=== PATIENT | female | born 1965 | race Caucasian/White ===

== ENCOUNTER → 2017-01-07 | Outpatient (CLI) | payer MEDICAID ==
[~2017-01-07] MED LIST: DCS100C PO; ESCI20TA2 PO; HYDR-3583 PO; HYDR25CA5 PO; IBUP-15 PO; NAPR-243 PO; NITR-65 PO; TRAM50TA2 PO; TRAZ150T42 PO; TRM50T; TRM50T PO; ZIPR60CA6 PO; ZPR80C PO
--- OUTSIDE RECORDS SUMMARY | 2017-01-07 20:12 | XMS REPORT | Continuity of Care Document ---
Demographics Preferred Language Unknown Marital Status Unknown Alevism Affiliation Unknown Race Unknown Ethnic Group Unknown Author Author [facility] Address Unknown Phone Unavailable Allergies Active Description Code Type Severity Reaction Onset Reported/Identified Relationship to Patient Clinical Status Yes phenobarbital [id number] Drug Allergy Unknown N/A 03/09/2006 Yes latex [id number] Drug Allergy Moderate RASH, ITCHING 03/02/2011 Yes vancomycin [id number] Drug Allergy Moderate HIVES 03/02/2011 Yes iodine [id number] Drug Allergy Mild "ILL" 03/02/2011 Yes Latex OA 07/2012 Yes PHENobarbital Drug Allergy 11/22/2011 Medications Problems Date Dx Coded Attending Type Code Diagnosis Diagnosed By 06/27/2010 Ot 553.21 06/27/2010 Ot 599.0 06/27/2010 Ot 789.09 01/11/2011 Ot 553.21 01/11/2011 Ot 789.01 01/16/2011 Ot 552.20 01/31/2011 Ot 553.20 01/31/2011 Ot 789.09 03/09/2011 Ot 278.01 03/09/2011 Ot 553.21 03/09/2011 Ot V85.44 11/22/2011 356.9 UNSPECIFIED IDIOPATHIC PERIPHERAL NEUROPATHY 11/22/2011 401.9 UNSPECIFIED ESSENTIAL HYPERTENSION 11/22/2011 496 CHRONIC AIRWAY OBSTRUCTION NOT ELSEWHERE CLASSIFIED 11/22/2011 716.90 UNSPECIFIED ARTHROPATHY SITE UNSPECIFIED 12/23/2013 SCOUT LOVING Ot 300.00 12/23/2013 SCOUT LOVING Ot 796.0 12/23/2013 SCOUT LOVING Ot 924.11 12/23/2013 SCOUT LOVING Ot 959.7 12/23/2013 SCOUT LOVING Ot E000.8 12/23/2013 SCOUT LOVING Ot E849.0 12/23/2013 SCOUT LOVING Ot E885.9 06/25/2015 Ot 553.20 06/25/2015 Ot V72.63 06/25/2015 Ot V74.8 07/10/2015 YOANDY SMITH MD Ot 305.1 07/10/2015 YOANDY SMITH MD Ot 786.05 07/10/2015 YOANDY SMITH MD Ot 786.07 Procedures Results Encounters ACCT No. Visit Date/Time Discharge Status Pt. Type Provider Facility Loc./Unit Complaint [id number] 12/06/2011 10:27:00 12/06/2011 23: 59:59 CLS Outpatient
[2017-01-07 20:51] LABS: BASOPHILS % (AUTO) 0 % (0-10); EOSINOPHILS # (AUTO) 0.1 10^3/uL (0.0-0.3); EOSINOPHILS % (AUTO) 1 % (0-10); LYMPHOCYTES # (AUTO) 1.7 X 10^3 (1.0-4.0); LYMPHOCYTES % (AUTO) 19 % (12-44); MEAN CORPUSCULAR HEMOGLOBIN 32 PG (25-34); MEAN CORPUSCULAR HGB CONC 33 G/DL (32-36); MEAN CORPUSCULAR VOLUME 97 FL (80-99); MEAN PLATELET VOLUME 9.4 FL (7.4-10.4); MONOCYTES # (AUTO) 0.5 X 10^3 (0.0-1.0); MONOCYTES % (AUTO) 6 % (0-12); NEUTROPHILS # (AUTO) 6.7 X 10^3 (1.8-7.8); NEUTROPHILS % (AUTO) 74 % (42-75); PLATELET COUNT 204 10^3/uL (130-400); RED BLOOD COUNT 5.04 10^6/uL (4.35-5.85); RED CELL DISTRIBUTION WIDTH 13.4 % (10.0-14.5); WHITE BLOOD COUNT 9.1 10^3/uL (4.3-11.0)
[2017-01-07 21:10] LABS: ALANINE AMINOTRANSFERASE 15 U/L (0-55); ALBUMIN 3.8 G/DL (3.2-4.5); ANION GAP 11 MMOL/L (5-14); ASPARTATE AMINO TRANSFERASE 14 U/L (5-34); BILIRUBIN,TOTAL 0.3 MG/DL (0.1-1.0); BLOOD UREA NITROGEN 13 MG/DL (7-18); BUN/CREATININE RATIO 19; CALCIUM 8.9 MG/DL (8.5-10.1); CARBON DIOXIDE 23 MMOL/L (21-32); CHLORIDE 107 MMOL/L (98-107); CHOLESTEROL 244 MG/DL (< 200); DIRECT LDL 185 MG/DL (1-129); GFR ESTIMATED > 60; GLUCOSE 96 MG/DL (70-105); POTASSIUM 4.8 MMOL/L (3.6-5.0); SODIUM 141 MMOL/L (135-145); TOTAL PROTEIN 6.7 G/DL (6.4-8.2); TRIGLYCERIDES 189 MG/DL (<150); VLDL CHOLESTEROL 38 MG/DL (5-40)
[2017-01-07 23:09] LABS: THYROID STIMULATING HORMONE 0.84 UIU/ML (0.35-4.94)
== END ==
LOC: LAB 20:02
PROVIDERS: ATTEND Family Medicine
DX: R05 Cough (principal)
CPT/HCPCS: 36415; 80053; 80061; 83036; 84443; 85025

== ENCOUNTER 2017-07-12 19:39 | Observation (INO) | payer MEDICAID ==
[~2017-07-12] VITALS: Ht 162.6 cm; Wt 179.6 kg
[2017-07-12] MEDS ORDERED: NS IV 500 ML 500 ML IV ONE (19:54)
--- NOTE | 2017-07-12 20:04 | ED Abdominal Pain ---
General Chief Complaint: Abdominal/GI Problems Stated Complaint: RUQ PAIN Source of Information: Patient Exam Limitations: No Limitations History of Present Illness Time Seen By Provider: 19:54 Initial Comments Here with complaint of right upper quadrant abdominal pain for the last 2-3 days. States that she has multiple holes in her belly and has problems with hernias. She states that she's had 7 surgeries in the past. Does report vomiting one time but then states that she is having bowel movements daily. After initial evaluation and, patient stated that she really wanted to go somewhere else but then stated that she would stay. Denies fever or chills. She was apparently supposed to have surgery in April related to her abdominal problems but states that she has seizures of the didn't want to do the surgery until after evaluation by her primary care doctor. She reports missing 3 appointments because she didn't have a ride to her primary care doctor Dr. Perry. She was subsequently fired from that practice for missing multiple appointments and was set up with [facility] for an appointment. She was not able to get to that appointment due to transportation concerns and has a new appointment scheduled for later this week or next week. She subsequently found out that [facility] has transportation available and so she is going to follow up with them. Timing/Duration: 2-3 Days Severity/Quality: Moderate Location: RUQ Radiation: No Radiation Activities at Onset: None Modifying Factors: Worsens With Movement, Improves With Resting Associated Symptoms: No Back Pain, No Fever/Chills, Nausea/Vomiting, No Shortness of Air, Swelling/Mass in Abdomen, No Weakness Allergies and Home Medications Allergies Coded Allergies: Latex (Verified Allergy, Intermediate, RASH, ITCHING, 03/02/11) Vancomycin (Verified Allergy, Intermediate, HIVES, 03/02/11) Iodine (Verified Allergy, Mild, "ILL", 03/02/11) phenobarbital (Verified Allergy, Unknown, 03/09/06) Home Medications Escitalopram Oxalate 20 Mg Tablet, 30 MG PO DAILY, (Reported) Hydrocodone Bit/Acetaminophen 1 Tab Tab, 1-2 EA PO Q4HR PRN, (Reported) Hydroxyzine Pamoate 25 Mg Capsule, 25 MG PO NEEDED, (Reported) Ibuprofen 200 Mg Tablet, 800 MG PO Q8H PRN, (Reported) Tramadol Hcl 50 Mg Tablet, 50 MG PO Q4H PRN for PAIN, #6 Ref 0 Prescribed by: SCOUT CALIXTO on 12/23/13 0017 Trazodone Hcl 150 Mg Tablet, 150 MG PO HS, (Reported) Ziprasidone 80 Mg Cap, 1 PO DAILY, (Reported) Review of Systems Constitutional: see HPI, No chills, No fever EENTM: No Symptoms Reported Respiratory: No Symptoms Reported Cardiovascular: No Symptoms Reported Gastrointestinal: See HPI, Abdomen Distended, Abdominal Pain, Denies Constipated, Vomiting Genitourinary: No Symptoms Reported Musculoskeletal: see HPI, No back pain, muscle pain Skin: no symptoms reported Psychiatric/Neurological: No Symptoms Reported All Other Systems Reviewed Negative Unless Noted: Yes Past Rbtizod-Twijjf-Ihpvmd Hx Patient Social History Alcohol Use: Denies Use Recreational Drug Use: No Smoking Status: Current Everyday Smoker Type Used: Cigarettes Recent Hopitalizations: Yes (HERNIA X 5, C-SECTIONS) Physical Abuse: No Sexual Abuse: No Mistreated: No Fear: No Surgeries History of Surgeries: Yes (LAPAROTOMY, C-SECTIONS) Respiratory History of Respiratory Disorde: No Cardiovascular History of Cardiac Disorders: No Neurological History of Neurological Disord: No Reproductive System Hx Reproductive Disorders: No Gastrointestinal History of Gastrointestinal Di: Yes (VENTRAL HERNIA) Musculoskeletal History of Musculoskeletal Dis: No Endocrine History of Endocrine Disorders: No Psychosocial History of Psychiatric Problem: No Suicide Risk Score: 0 Blood Transfusions History of Blood Disorders: No Reviewed Nursing Assessment Reviewed/Agree w Nursing PMH: Yes Family Medical History Significant Family History: No Pertinent Family Hx Physical Exam Vital Signs VS - Last 72 Hours, by Label 07/12/17 19:40 Temp 97.5 Pulse 96 Resp 24 B/P (MAP) Pulse Ox 99 O2 Delivery Nasal Cannula Capillary Refill : General Appearance: WD/WN, mild distress (abdominal pain), obese (morbidly obese) HEENT: PERRL/EOMI, pharynx normal Neck: full range of motion, supple Respiratory: lungs clear, normal breath sounds Cardiovascular: regular rate, rhythm, no murmur Gastrointestinal: soft, tenderness, hernia, other (multiple abdominal hernias noted. All appear to be reducible although challenging exam due to obesity. Pain noted on evaluation overall especially in the right upper quadrant and right lateral aspect of the pannus.) Extremities: non-tender, normal inspection, pedal edema (bilateral lower extremity edema 2 +) Neurologic/Psychiatric: alert, oriented x 3 Skin: normal color, warm/dry Focused Exam Evaluation Lactate Level Laboratory Tests 07/12/17 22:20: Lactic Acid Level 0.85 Lactic Acid Level Laboratory Tests Test 07/12/17 22:20 Lactic Acid Level 0.85 MMOL/L (0.50-2.00) Progress/Results/Core Measures Results/Orders Lab Results Laboratory Tests Test 07/12/17 20:00 07/12/17 22:20 Range/Units White Blood Count 9.8 4.3-11.0 10^3/uL Red Blood Count 4.52 4.35-5.85 10^6/uL Hemoglobin 14.4 11.5-16.0 G/DL Hematocrit 44 35-52 % Mean Corpuscular Volume 97 80-99 FL Mean Corpuscular Hemoglobin 32 25-34 PG Mean Corpuscular Hemoglobin Concent 33 32-36 G/DL Red Cell Distribution Width 13.3 10.0-14.5 % Platelet Count 152 130-400 10^3/uL Mean Platelet Volume 9.5 7.4-10.4 FL Neutrophils (%) (Auto) 77 H 42-75 % Lymphocytes (%) (Auto) 14 12-44 % Monocytes (%) (Auto) 8 0-12 % Eosinophils (%) (Auto) 1 0-10 % Basophils (%) (Auto) 0 0-10 % Neutrophils # (Auto) 7.5 1.8-7.8 X 10^3 Lymphocytes # (Auto) 1.4 1.0-4.0 X 10^3 Monocytes # (Auto) 0.8 0.0-1.0 X 10^3 Eosinophils # (Auto) 0.1 0.0-0.3 10^3/uL Basophils # (Auto) 0.0 0.0-0.1 10^3/uL Sodium Level 140 135-145 MMOL/L Potassium Level 3.8 3.6-5.0 MMOL/L Chloride Level 106 98-107 MMOL/L Carbon Dioxide Level 26 21-32 MMOL/L Anion Gap 8 5-14 MMOL/L Blood Urea Nitrogen 4 L 7-18 MG/DL Creatinine 0.60 0.60-1.30 MG/DL Estimat Glomerular Filtration Rate > 60 BUN/Creatinine Ratio 7 Glucose Level 106 H 70-105 MG/DL Calcium Level 8.6 8.5-10.1 MG/DL Magnesium Level 1.7 L 1.8-2.4 MG/DL Total Bilirubin 0.6 0.1-1.0 MG/DL Aspartate Amino Transf (AST/SGOT) 13 5-34 U/L Alanine Aminotransferase (ALT/SGPT) 15 0-55 U/L Alkaline Phosphatase 90 40-136 U/L Total Protein 5.8 L 6.4-8.2 GM/DL Albumin 3.3 3.2-4.5 GM/DL Lactic Acid Level 0.85 0.50-2.00 MMOL/L My Orders Orders - AMBROSIO POLANCO MD Cbc With Automated Diff (07/12/17 19:54) Comprehensive Metabolic Panel (07/12/17 19:54) Magnesium (07/12/17 19:54) Ua Culture If Indicated (07/12/17 19:54) Saline Lock/Iv-Start (07/12/17 19:54) Ns Iv 500 Ml (Sodium Chloride 0.9%) (07/12/17 19:54) Ct Abdomen/Pelvis Wo (07/12/17 19:54) Lactic Acid Analyzer (07/12/17 22:13) Fentanyl Injection (Sublimaze Injection (07/12/17 22:20) Medications Given in ED Current Medications Medications Dose Ordered Sig/Sy Route Start Time Stop Time Status Last Admin Dose Admin Sodium Chloride 500 ml @ 0 mls/hr Q0M ONCE IV 07/12/17 19:54 07/12/17 19:55 DC 07/12/17 20:56 500 MLS/HR Vital Signs/I&O Vital Sign - Last 12Hours 07/12/17 19:40 Temp 97.5 Pulse 96 Resp 24 B/P (MAP) Pulse Ox 99 O2 Delivery Nasal Cannula Progress Note : Progress Note Seen and evaluated. IV, labs, UA, CT abdomen and pelvis without contrast as patient is allergic to iodine. Normal saline 500 mL bolus. Monitor patient. CT results noted. I did discuss the case with Dr. Crenshaw at 2110. Case was discussed with Dr. Rock at 2204. Ultimately the plan is to provide pain control and fluids overnight with clear liquid diet and recheck labs in the morning. CT is somewhat equivocal. Patient would be a complicated surgical case that exceeds the capability here if indicated. Currently it is not indicated and we will monitor overnight for improvement or worsening. Patient will need transfer if becomes surgical concern. Admit to Dr. Rock, observation status with Dr. Crenshaw on consult. Patient and family agree to plan. Normal saline will be continued. Fentanyl 50 g IV ordered. Diagnostic Imaging Diagonstic Imaging: CT Plain Films/CT/US/NM/MRI: abdomen, pelvis Comments VIA [facility] [place] [place], [place] NAME: [facility] REC#: [id number] PT STATUS: REG ER : 1965 PHYSICIAN: AMBROSIO POLANCO MD ADMIT DATE: 07/12/17/ER Draft Date of Exam:07/12/17 CT ABDOMEN/PELVIS WO PROCEDURE: CT abdomen and pelvis without contrast. TECHNIQUE: Multiple contiguous axial images were obtained through the abdomen and pelvis without the use of intravenous contrast. INDICATION: Right upper quadrant abdominal pain and emesis Comparison is made to study of 01/31/2011. There is a small amount of pleural fluid, greater on the right. Unenhanced images of the liver and spleen reveal no focal abnormality. No gallbladder or pancreatic lesion is seen. There is no evidence of adrenal gland abnormality. Evaluation of the kidneys is limited without intravenous contrast, however, there is no evidence of acute abnormality or significant change compared to previous study. There has been marked worsening of anterior abdominal wall thinning and disruption resulting in large amount of herniated small and large bowel as well as omentum and mesenteric fat. There is mild increased density in the central mesentery likely due to edema or possible inflammation. No significant free fluid is identified. Lobular contour to the uterus suggests probable fibroids. There is no evidence of abscess. IMPRESSION: Increasing anterior abdominal wall defect containing large amount of herniated small and large bowel as well as omentum and mesenteric fat. Increased density in the mesentery may be due to mesenteric edema or inflammation. No abscess or hemorrhage is identified. There is also a small amount of right pleural fluid. Dictated on workstation # [id number] Dict: 07/12/172029 Trans: 07/12/17 2047 [id number] Interpreted by: CALE SMITH MD Electronically signed by: Departure Communication (Admissions) Time/Spoke to Admitting Phy: 22:05 Time/Spoke to Consulting Phy: 21:11 Impression Impression: Primary Impression: Abdominal wall pain Additional Impression: Ventral hernia, recurrent Disposition: ADMITTED INPATIENT Condition: Stable Admissions Decision to Admit Reason: Admit from ER (General) Decision to Admit/Date: Jul 12, 2017 Time/Decision to Admit Time: 22:05 Departure-Patient Inst. Referrals: YOANDY PERRY MD (PCP/Family) Primary Care Physician AMBROSIO POLANCO MD Jul 12, 2017 20:04
[2017-07-12 20:16] LABS: BASOPHILS % (AUTO) 0 % (0-10); EOSINOPHILS # (AUTO) 0.1 10^3/uL (0.0-0.3); EOSINOPHILS % (AUTO) 1 % (0-10); LYMPHOCYTES # (AUTO) 1.4 X 10^3 (1.0-4.0); LYMPHOCYTES % (AUTO) 14 % (12-44); MEAN CORPUSCULAR HEMOGLOBIN 32 PG (25-34); MEAN CORPUSCULAR HGB CONC 33 G/DL (32-36); MEAN CORPUSCULAR VOLUME 97 FL (80-99); MEAN PLATELET VOLUME 9.5 FL (7.4-10.4); MONOCYTES # (AUTO) 0.8 X 10^3 (0.0-1.0); MONOCYTES % (AUTO) 8 % (0-12); NEUTROPHILS # (AUTO) 7.5 X 10^3 (1.8-7.8); NEUTROPHILS % (AUTO) 77 % (42-75); PLATELET COUNT 152 10^3/uL (130-400); RED BLOOD COUNT 4.52 10^6/uL (4.35-5.85); RED CELL DISTRIBUTION WIDTH 13.3 % (10.0-14.5); WHITE BLOOD COUNT 9.8 10^3/uL (4.3-11.0)
[2017-07-12 20:35] LABS: ALANINE AMINOTRANSFERASE 15 U/L (0-55); ALBUMIN 3.3 GM/DL (3.2-4.5); ANION GAP 8 MMOL/L (5-14); ASPARTATE AMINO TRANSFERASE 13 U/L (5-34); BILIRUBIN,TOTAL 0.6 MG/DL (0.1-1.0); BLOOD UREA NITROGEN 4 MG/DL (7-18); BUN/CREATININE RATIO 7; CALCIUM 8.6 MG/DL (8.5-10.1); CARBON DIOXIDE 26 MMOL/L (21-32); CHLORIDE 106 MMOL/L (98-107); GFR ESTIMATED > 60; GLUCOSE 106 MG/DL (70-105); MAGNESIUM 1.7 MG/DL (1.8-2.4); POTASSIUM 3.8 MMOL/L (3.6-5.0); SODIUM 140 MMOL/L (135-145); TOTAL PROTEIN 5.8 GM/DL (6.4-8.2)
--- NOTE | 2017-07-12 20:47 | Diagnostic Imaging Report ---
PROCEDURE: CT abdomen and pelvis without contrast. TECHNIQUE: Multiple contiguous axial images were obtained through the abdomen and pelvis without the use of intravenous contrast. INDICATION: Right upper quadrant abdominal pain and emesis. COMPARISON is made to a study of 01/31/2011. FINDINGS: There is a small amount of pleural fluid, greater on the right. Unenhanced images of the liver and spleen reveal no focal abnormality. No gallbladder or pancreatic lesion is seen. There is no evidence of adrenal gland abnormality. Evaluation of the kidneys is limited without intravenous contrast, however, there is no evidence of acute abnormality or significant change when compared to the previous study. There has been marked worsening of anterior abdominal wall thinning and disruption resulting in a large amount of herniated small and large bowel as well as omentum and mesenteric fat. There is mild increased density in the central mesentery likely due to edema or possible inflammation. No significant free fluid is identified. Lobular contour to the uterus suggests probable fibroids. There is no evidence of abscess. IMPRESSION: Increasing anterior abdominal wall defect containing a large amount of herniated small and large bowel as well as omentum and mesenteric fat. Increased density in the mesentery may be due to mesenteric edema or inflammation. No abscess or hemorrhage is identified. There is also a small amount of right pleural fluid. Dictated by: Dictated on workstation # [id number]
[2017-07-12] MEDS ORDERED: fentaNYL INJECTION 100 MCG/2 ML AMP IVP STA (22:20)
[2017-07-12 23:40] VITALS: BP 132/72
[2017-07-13] MEDS: fentaNYL INJECTION 100 MCG/2 ML AMP IV PRN ×4 (00:46→09:11)
[2017-07-13] MEDS: NS IV 1000 ML 1,000 ML IV SCH ×2 (00:46→09:11)
[2017-07-13 04:30] VITALS: BP 131/78
--- OUTSIDE RECORDS SUMMARY | 2017-07-13 05:06 | XMS REPORT | Continuity of Care Document ---
Author Author [employer] Organization [facility] Address Unknown Phone Unavailable Care Team Providers Care Applications Engineer Name Role Phone [employer] Unavailable Unavailable Problems Medications Allergies, Adverse Reactions, Alerts Immunizations Results Vital Signs Encounters Location Location Details Encounter Type Encounter Number Reason For Visit Attending Provider ADM Date DC Date Status Source [place] [facility] Procedures Plan of Care Social History Assessment and Plan Family History Value Date Source Advance Directives Order Name Results Value Date Source
--- OUTSIDE RECORDS SUMMARY | 2017-07-13 05:07 | XMS REPORT | Clinical Summary ---
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 There is a large anterior abdominal wall hernia containing the majority of the nonobstructive large and small bowel. There is mild prominence of a single loop of redundant sigmoid colon within the right anterior hernia sac, although the diameter remains within normal limits. There is no significant surrounding inflammatory stranding or evidence of obstruction. No ascites. Pelvis: The mildly distended urinary bladder is unremarkable. There is a well- circumscribed, high density mass extending from the inferior right aspect of the uterine fundus, measuring up to 5.8 cm (series 2 image 67). No pelvic lymphadenopathy. Abdominal wall and Osseous Structures: At least 2 probable previous mesh repairs of the anterior abdominal wall with extensive herniation of abdominal fat and the majority of the large and small bowel through the defect. There is marked atrophy of the rectus abdominis muscles and diffuse laxity of the ventral abdominal wall with wide diastasis. Thoracolumbar spondylosis. Bilateral hip osteoarthrosis. No destructive osseous lesions are identified. Procedure Note Interface, Radiant Results - 04/17/2017 10:[address] ABDOMEN AND PELVIS CLINICAL HISTORY: 51-year-old female, abdominal pain, abdominal hernias. TECHNIQUE: Multiple contiguous axial CT images were obtained through the abdomen and pelvis without IV contrast. Post processing coronal and sagittal reconstruction images were made from the axial images. COMPARISON: None IV CONTRAST: None BOWEL CONTRAST: None FINDINGS: Limited evaluation without the use of IV contrast which includes the viscera and vasculature. Examination is also limited due to patient body habitus. Lower Thorax: The heart is upper limits of normal for size. The lung bases are clear. Liver and Biliary system: Mild hepatomegaly. No focal hepatic masses are identified, although evaluation is markedly limited in the absence of IV contrast. No calcified gallstones are seen. Spleen: Unremarkable. Adrenal Glands and Kidneys: The adrenal glands and right kidney are unremarkable. Tiny nonobstructive left renal calculus. Pancreas and Retroperitoneum: The pancreas is unremarkable. No definite central retroperitoneal lymphadenopathy. Aorta and Major Vessels: The abdominal aorta and major branch vessels are normal in caliber. Bowel, Mesentery and Peritoneal space: Previously sleeve gastrectomy. There is a large anterior abdominal wall hernia containing the majority of the nonobstructive large and small bowel. There is mild prominence of a single loop of redundant sigmoid colon within the right anterior hernia sac, although the diameter remains within normal limits. There is no significant surrounding inflammatory stranding or evidence of obstruction. No ascites. Pelvis: The mildly distended urinary bladder is unremarkable. There is a well- circumscribed, high density mass extending from the inferior right aspect of the uterine fundus, measuring up to 5.8 cm (series 2 image 67). No pelvic lymphadenopathy. Abdominal wall and Osseous Structures: At least 2 probable previous mesh repairs of the anterior abdominal wall with extensive herniation of abdominal fat and the majority of the large and small bowel through the defect. There is marked atrophy of the rectus abdominis muscles and diffuse laxity of the ventral abdominal wall with wide diastasis. Thoracolumbar spondylosis. Bilateral hip osteoarthrosis. No destructive osseous lesions are identified. IMPRESSION 1. Prior mesh repair of the anterior abdominal wall with a massive anterior abdominal wall hernia containing abdominal fat and the majority of the nonobstructive large and small bowel. 2. Mild hepatomegaly. 3. Upper limits of normal size heart. 4. Fibroid uterus. By my electronic signature, I attest that I have personally reviewed the images for this examination and formulated the interpretations and opinions expressed in this report Finalized by TONY BEARD M.D. on 04/17/2017 10:41 AM. Dictated by Benito Mooney M.D. on 04/17/2017 10:03 AM. * URINALYSIS, MICROSCOPIC (04/17/2017 9:41 AM) Component Value Ref Range WBCs,UA 10-20 0 - 2 /HPF RBCs,UA 2-10 0 - 3 /HPF MucousUA 4+ Bacteria,UA PACKED (A) NEG-NEG Squamous Epithelial Cells 0-2 0 - 5 Calcium Oxalate Crystals FEW Specimen Performing Laboratory Urine [facility] [address] [place] [id number] * URINALYSIS DIPSTICK (04/17/2017 9:41 AM) Component Value Ref Range Color,UA JENNY Turbidity,UA 2+ (A) CLEAR-CLEAR Specific [place]-Urine 1.029 1.003 - 1.035 pH,UA 5.0 5.0 - 8.0 Protein,UA 1+ (A) NEG-NEG Glucose,UA NEG NEG-NEG Ketones,UA NEG NEG-NEG Bilirubin,UA POS (A) NEG-NEG Blood,UA NEG NEG-NEG Urobilinogen,UA INCREASED (A) NORM-NORMAL Nitrite,UA POS (A) NEG-NEG Leukocytes,UA TRACE (A) NEG-NEG Urine Ascorbic Acid, UA POS (A) NEG-NEG Comment: Ascorbic acid is found in various food supplies and dietary supplements, and is reported to cause strong interference with Macroscopic Urinalysis testing for glucose, blood and nitrite, and can result in a false negative result. Specimen Performing Laboratory Urine MAIN [facility] [address] [place] [id number] * CULTURE-URINE W/SENSITIVITY (04/17/2017 9:41 AM) Component Value Ref Range Battery Name URINE CULTURE Specimen Description URINE Special Requests NONE Culture >100,000 organisms/ml ESCHERICHIA COLI (A) Report Status FINAL 04/19/2017 Organism ID >100,000 organisms/ml ESCHERICHIA COLI Specimen Performing Laboratory Urine [facility] [address] [place] [id number] Organism Antibiotic Method Susceptibility >100,000 organisms/ml Ampicillin DANIAL (MCG/ML) <=4 SUSCEPTIBLE: escherichia coli INTERPRETATION Susceptible >100,000 organisms/ml Amoxicil/Clav Acid DANIAL (MCG/ML) <=4/2 SUSCEPTIBLE: escherichia coli INTERPRETATION Susceptible >100,000 organisms/ml Levofloxacin DANIAL (MCG/ML) <=1 SUSCEPTIBLE: escherichia coli INTERPRETATION Susceptible >100,000 organisms/ml Nitrofurantoin DANIAL (MCG/ML) <=16 SUSCEPTIBLE: escherichia coli INTERPRETATION Susceptible >100,000 organisms/ml Gentamicin DANIAL (MCG/ML) <=2 SUSCEPTIBLE: escherichia coli INTERPRETATION Susceptible >100,000 organisms/ml Trimethsulfa DANIAL (MCG/ML) <=0.5/9.5 SUSCEPTIBLE: escherichia coli INTERPRETATION Susceptible >100,000 organisms/ml Piperacil/Tazobactam DANIAL (MCG/ML) <=2/4 SUSCEPTIBLE: escherichia coli INTERPRETATION Susceptible >100,000 organisms/ml Tetracycline DANIAL (MCG/ML) <=2 SUSCEPTIBLE: escherichia coli INTERPRETATION Susceptible >100,000 organisms/ml Cefepime DANIAL (MCG/ML) <=1 SUSCEPTIBLE: escherichia coli INTERPRETATION Susceptible >100,000 organisms/ml Ertapenem DANIAL (MCG/ML) <=0.25 SUSCEPTIBLE: escherichia coli INTERPRETATION Susceptible >100,000 organisms/ml Ceftriaxone DANIAL (MCG/ML) <=1 SUSCEPTIBLE: escherichia coli INTERPRETATION Susceptible >100,000 organisms/ml Method DANIAL (MCG/ML) DANIAL (MCG/ML) escherichia coli INTERPRETATION INTERPRETATION * POC CREATININE, RAD (04/17/2017 9:09 AM) Component Value Ref Range Creatinine, POC 0.6 0.4 - 1.00 MG/DL Specimen Performing Laboratory MA[facility] [address] [place] [id number] * POC LACTATE (04/17/2017 9:08 AM) Component Value Ref Range LACTIC ACID POC 1.1 0.5 - 2.0 MMOL/L Specimen Performing Laboratory [facility] [address] [place] [id number] * PTT (APTT) (04/17/2017 9:07 AM) Component Value Ref Range APTT 28.8 24.0 - 40.0 SEC Specimen Performing Laboratory Blood MAIN LAB [address] [place] [id number] * PROTIME INR (PT) (04/17/2017 9:07 AM) Component Value Ref Range INR 1.0 0.8 - 1.2 Specimen Performing Laboratory Blood MAIN LAB [address] [place] [id number] * LIPASE (04/17/2017 9:07 AM) Component Value Ref Range Lipase 10 (L) 11 - 82 U/L Specimen Performing Laboratory Blood MAIN [facility] [address] [place] [address] * COMPREHENSIVE METABOLIC PANEL (04/17/2017 9:07 AM) Component Value Ref Range Sodium 139 137 - 147 MMOL/L Potassium 4.1 3.5 - 5.1 MMOL/L Chloride 107 98 - 110 MMOL/L Glucose 133 (H) 70 - 100 MG/DL Blood Urea Nitrogen 7 7 - 25 MG/DL Creatinine 0.62 0.4 - 1.00 MG/DL Calcium 9.3 8.5 - 10.6 MG/DL Total Protein 6.6 6.0 - 8.0 G/DL Total Bilirubin 0.5 0.3 - 1.2 MG/DL Albumin 3.7 3.5 - 5.0 G/DL Alk Phosphatase 83 25 - 110 U/L AST (SGOT) 19 7 - 40 U/L CO2 26 21 - 30 MMOL/L ALT (SGPT) 11 7 - 56 U/L Anion Gap 6 3 - 12 eGFR Non >60 >60 mL/min Comment: The eGFR is not validated for use in drug dosing adjustments. Continue to use estimated creatinine clearance per dosing reference text. Please contact the Clinical Pharmacist for questions. eGFR >60 >60 mL/min Comment: The eGFR is not validated for use in drug dosing adjustments. Continue to use estimated creatinine clearance per dosing reference text. Please contact the Clinical Pharmacist for questions. Specimen Performing Laboratory Blood [facility] [address] [place] [address] from Last 3 Months
--- OUTSIDE RECORDS SUMMARY | 2017-07-13 05:10 | XMS REPORT | Encounter Summary ---
Author Author [facility] Organization [facility] Address Unknown Phone Unavailable Care Team Providers Care Bookkeeper Assistant Name Role Phone PCP Unavailable Encounter Details Date Type Department Care Team Description 04/20/2017 Procedure [facility] [address] [place], [place] [id number] Social History Tobacco Use Types Packs/Day Years Used Date Current Every Day Smoker Sex Assigned at Date Recorded Not on file as of this encounter Functional Status Functional Status Response Date of Assessment Does the patient have a hearing impairment: No 04/17/2017 as of this encounter Plan of Treatment Not on fileas of this encounter Visit Diagnoses Not on filein this encounter
--- OUTSIDE RECORDS SUMMARY | 2017-07-13 05:10 | XMS REPORT | Encounter Summary ---
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 up Discussed with surgery - since patient has no obstructive symptoms she needs to follow up with surgery as outpatient. I made an appointment on 04/22/17 at 9 am [facility] general surgery [phone]. Total time (reviewing and writing notes, interdisciplinary rounds with the nurse , case management social worker and the social service technician, discussion with application support consultant services) spent 35 minutes of which > 50% was spent face to face with the patient in care coordination and bedside counseling (explaining treatment options, disease processes, laboratory/imaging results, prognosis, risks and benefits of treatment options, medication side effects, importance of compliance with treatment, risk factor reduction, follow up with primary care physician). SUBJECTIVE Patient seen and examined. Overnight: No interval events. During this AM visit, patient states she is able to eat, has nausea but no vomiting, she underwent EGD today, she had BM yesterday ROS: >>> Denies fever/chills >>> Denies chest pain, SOB >>> Denies N/V/D OBJECTIVE VITAL SIGNS BP: 108/50 mmHg (04/19 1042) Temp: 36.4 C (97.6 F) (04/19 104) Pulse: 70 (04/19 1042) Respirations: 20 PER MINUTE (04/19 1042) SpO2: 95 % (04/19 1042) O2 Delivery: None (Room Air) (04/19 104) SpO2 Pulse: 67 (04/19 1002) Height: 162.6 cm (64.02") (04/18 1200) PHYSICAL EXAM Constitutional: Morbidly obese. Alert and oriented times three. No acute distress. Answer questions appropriately. Ears, eyes, nose, mouth, and throat: Normal conjunctivae. Pupils equal, round and reactive. Extraocular muscles are intact. Moist mucus membranes. Good dentition. Neck: Supple. No lymphadenopathy. No thyroidmegaly. No carotid bruits. No jugular venous distension. Chest: Symmetric. Cardiovascular: Regular rhythm and rate. Normal S1 and S2. No displacement of PMI. No murmurs, rubs, or gallop. Normal symmetrical pulses. Respiratory: Breathing comfortable without use of accessory muscles. Breath sounds equal bilaterally. No crackles, wheezes, or rhonchi. Gastrointestinal: Surgical surgical scars with large reducible ventral hernia. Normal bowel sounds. Not distended. No tenderness to palpation. No guarding or rebound. No organomegaly. Genitourinary: deferred. Musculoskeletal: 2 plus edema with skin changes consistent with venous status changes. No clubbing or cyanosis. Skin: No open lesions. No bruising. No rash. Neuro: Cranial nerves 2-12 grossly intact. Normal muscle tone with 3/5 strength of all extremities. Moving all limbs spontaneously. No focal deficits. Psych: Calm with appropriate mood and judgement. LAB REVIEW Recent Labs 04/17/17 0904/18/17 0731 04/19/17 0459 WBC 8.3 6.4 6.2 HGB 15.0 14.7 14.8 HCT 44.3 43.7 43.0 PLTCT 197 172 170 MCV 93.6 93.4 92.9 INR 1.0 -- -- Recent Labs 04/17/17 0904/18/17 0731 04/19/17 0459 NA 139 140 137 K 4.1 3.6 3.7 CL 107 104 100 CO2 26 30 30 BUN 7 10 13 CR 0.62 0.67 0.62 GAP 6 6 7 MG -- 1.9 1.8 GFR >60 >60 >60 ALBUMIN 3.7 -- -- TOTBILI 0.5 -- -- AST 19 -- -- ALT 11 -- -- MEDICATIONS Scheduled Meds: ARIPiprazole (ABILIFY) tablet 5 mg 5 mg Oral QHS cefTRIAXone (ROCEPHIN) IVP 1 g 1 g Intravenous Q24H* enoxaparin (LOVENOX) syringe 40 mg 40 mg Subcutaneous BID furosemide (LASIX) tablet 40 mg 40 mg Oral BID hydroCHLOROthiazide (HYDRODIURIL) tablet 25 mg 25 mg Oral QAM8 insulin aspart (NOVOLOG FLEXPEN) injection PEN 0-7 Units 0-7 Units Subcutaneous ACHS lisinopril (PRINIVIL; ZESTRIL) tablet 20 mg [address] (PROTONIX) tablet 40 mg 40 mg Oral BID before meals polyethylene glycol 3350 (MIRALAX) packet 17 g 1 Packet Oral TID (06-25-17) pravastatin (PRAVACHOL) tablet 20 mg 20 mg Oral QHS sertraline (ZOLOFT) tablet 25 mg 25 mg Oral QDAY traZODone (DESYREL) tablet 300 mg 300 mg Oral QHS Continuous Infusions: PRN and Respiratory Meds:acetaminophen Q6H PRN, albuterol Q4H PRN, albuterol 0.5 % PRN, hydrOXYzine TID PRN, ondansetron (ZOFRAN) IV Q6H PRN, ondansetron Q6H PRN , traMADol Q6H PRN RADIOLOGY AND OTHER DIAGNOSTIC PROCEDURES REVIEW No results found. Radiology and Other Diagnostic Procedures Review: 04/19/2017 Albert Calles MD Clinical Supervisor [employer] Internal Medicine Pertinent radiology reviewed. * Nesha Roberts, PT - 04/19/2017 9:26 AM CDT PHYSICAL THERAPY NOTE The patient was not seen due to: Pt off unit for EGD. PT to follow up as able for therapy. Therapist: Shanell Roberts, PT Date: 04/19/2017 * Nat Sherman, OT - 04/19/2017 9:19 AM CDT OCCUPATIONAL THERAPY NO TREATMENT NOTE The patient was not seen due to: Pt off unit for test/procedure. OT to follow up as able for therapy. Therapist: Nat Sherman OTR/Deshawn Date: 04/19/2017 * Lorelei Berger, RN - 04/19/2017 7:45 AM CDT Spoke GI/Endo this am. RN to hold Lovenox this AM. WCTM * Thomas Mena, RN - 04/18/2017 5:00 PM CDT Pt and family spoke of concerns with RN with plan for the rest of the hospital stay. Pt and family not wanting to have surgery in [place], [place], where pt is from. Pt would like to have a consult from surgery for further evaluation. * Albert Calles MD - 04/18/2017 10:35 AM CDT Formatting of this note may be different from the original. THE [facility] Medicine Progress Note Name: Yomaira Sheriff Admission Date: 04/17/2017 Today's Date: 04/18/2017 LOS: ASSESSMENT AND PLAN 51 F with hx of agoraphobia, depression, HTN, HLD, DM2, GERD, OA, neuropathy, and morbid obesity status post gastric sleeve surgery admitted from ED 04/17 with progressive abdominal pain and UTI. Progressive abdominal pain and constipation. Complicated surgical history with laparoscopic surgery 9 for staph infection, gastric sleeve, appendectomy , and 2 C-sections. - Dr. Olaf Mendez of [facility] has done at least 9 surgery on this patient for "herniation." During one of these surgeries, he took out her appendix. He is no longer with this office. - She reported a 3 month hospitalization for abdominal staph infection requiring multiple debridement. - She had gastric sleeve surgery at [facility] in 2015. - She was evaluated at [facility] ED in February 2017. She was told she was tool complicated - CT abdomen and pelvis without contrast at admission showed prior mesh repair of the anterior abdominal wall with a massive anterior abdominal wall hernia containing abdominal fat and the majority of the nonobstructive large and small bowel. - Start Miralax TID for bowel regimen. - Tramadol prn pain. Trying not to escalate pain regimen due to constipation. - consult GI UTI. -CT abdomen and pelvis at admission showed no pyelonephritis. -UA at admission was positive for blood, trace leukocytes, 10-20 WBC, 2-10 RBC, packed bacteria, and 0-2 SE. -Urine cultures in process. -Continue Rocephin (04/17). HTN and HLD. -Continue Lasix 40 mg BID, HCTZ 25 mg daily, lisinopril 20 mg daily. -Continue Pravastatin. DM2. -A1c 5.9 -Home regimen -LDCF Agoraphobia and depression - Continue Abilify, Zoloft, and Trazodone. Discussed with surgery - since patient has no obstructive symptoms she needs to follow up with surgery as outpatient. Will consult GI service for their input on her abd pain Outside records requested again Full code. Confirmed with patient. Catracho Sheriff () is DPOA but they don't have a phone. We may call son to get a hold of her . Soren (son): [phone]) Disp: admit for observation The above mentioned plan and the hospital course was discussed in detail with the patient Care coordination was discussed with case management social worker and social service technician Medication side effects explained in detail Imaging results discussed with the patient - rec outpatint follow up Patient agrees and verbalizes understanding SUBJECTIVE Patient seen and examined. Overnight: No interval events. During this AM visit, patient states she was able to tolerate breakfast today, reports diffuse abd pain, last BM 5 days ago, no nausea and no vomiting ROS: >>> Denies fever/chills >>> Denies chest pain, SOB >>> Denies N/V/D OBJECTIVE VITAL SIGNS BP: 105/51 mmHg (04/18 651) Temp: 36.7 C (98 F) (04/18 651) Pulse: 61 (04/18 651) Respirations: 13 PER MINUTE (04/18 651) SpO2: 98 % (04/18 651) O2 Delivery: Nasal Cannula (04/18 651) SpO2 Pulse: 79 (04/17 1200) PHYSICAL EXAM Constitutional: Morbidly obese. Alert and oriented times three. No acute distress. Answer questions appropriately. Ears, eyes, nose, mouth, and throat: Normal conjunctivae. Pupils equal, round and reactive. Extraocular muscles are intact. Moist mucus membranes. Good dentition. Neck: Supple. No lymphadenopathy. No thyroidmegaly. No carotid bruits. No jugular venous distension. Chest: Symmetric. Cardiovascular: Regular rhythm and rate. Normal S1 and S2. No displacement of PMI. No murmurs, rubs, or gallop. Normal symmetrical pulses. Respiratory: Breathing comfortable without use of accessory muscles. Breath sounds equal bilaterally. No crackles, wheezes, or rhonchi. Gastrointestinal: Surgical surgical scars with large reducible ventral hernia. Normal bowel sounds. Not distended. No tenderness to palpation. No guarding or rebound. No organomegaly. Genitourinary: deferred. Musculoskeletal: 2 plus edema with skin changes consistent with venous status changes. No clubbing or cyanosis. Skin: No open lesions. No bruising. No rash. Neuro: Cranial nerves 2-12 grossly intact. Normal muscle tone with 3/5 strength of all extremities. Moving all limbs spontaneously. No focal deficits. Psych: Calm with appropriate mood and judgement. LAB REVIEW Recent Labs 04/17/17 0907 04/18/17 0731 WBC 8.3 6.4 HGB 15.0 14.7 HCT 44.3 43.7 PLTCT 197 172 MCV 93.6 93.4 INR 1.0 -- Recent Labs 04/17/17 0907 04/18/17 0731 NA 139 140 K 4.1 3.6 CL 107 104 CO2 26 30 BUN 7 10 CR 0.62 0.67 GAP 6 6 MG -- 1.9 GFR >60 >60 ALBUMIN 3.7 -- TOTBILI 0.5 -- AST 19 -- ALT 11 -- MEDICATIONS Scheduled Meds: ARIPiprazole (ABILIFY) tablet 5 mg 5 mg Oral QHS cefTRIAXone (ROCEPHIN) IVP 1 g 1 g Intravenous Q24H* enoxaparin (LOVENOX) syringe 40 mg 40 mg Subcutaneous BID furosemide (LASIX) tablet 40 mg 40 mg Oral BID hydroCHLOROthiazide (HYDRODIURIL) tablet 25 mg 25 mg Oral QAM8 insulin aspart (NOVOLOG FLEXPEN) injection PEN 0-7 Units 0-7 Units Subcutaneous ACHS lisinopril (PRINIVIL; ZESTRIL) tablet 20 mg 20 [address] QDAY [address]op[address]ole [address] (PROTONIX) tablet 40 mg 40 mg Oral BID before meals polyethylene glycol 3350 (MIRALAX) packet 17 g 1 Packet Oral TID (06-25-17) pravastatin (PRAVACHOL) tablet 20 mg 20 mg Oral QHS sertraline (ZOLOFT) tablet 25 mg 25 mg Oral QDAY traZODone (DESYREL) tablet 300 mg 300 mg Oral QHS Continuous Infusions: PRN and Respiratory Meds:acetaminophen Q6H PRN, albuterol Q4H PRN, albuterol 0.5 % PRN, hydrOXYzine TID PRN, ondansetron (ZOFRAN) IV Q6H PRN, ondansetron Q6H PRN , traMADol Q6H PRN RADIOLOGY AND OTHER DIAGNOSTIC PROCEDURES REVIEW No results found. Radiology and Other Diagnostic Procedures Review: 04/18/2017 Albert Calles MD Clinical Supervisor [employer] Internal Medicine Pertinent radiology reviewed. * Nesha Roberts, PT - 04/18/2017 10:00 AM CDT PHYSICAL THERAPY NOTE Evaluation orders received, Pt's nurse reports pt lethargic today. PT and tech attempt to work with pt however difficult to have pt answer questions as she will respond but fall back to sleep. Pt reports she slept "off and on" and requests PT to return later today. PT will continue to follow and provide intervention as appropriate, nurse reports pt is an assist of 2 to walk to bathroom. Bariatric rolling walker provided in room to assist nursing staff with mobility. Therapist: Shanell Roberts, PT Date: 04/18/2017 * Miya Vee, RN - 04/18/2017 12:00 AM CDT 2315- Pt requesting enema for constipation, in addition to Miralax TID. Primary team notified. Per Dr. Belem Moore, one time soap suds enema ordered. 2345- Pt attempting to sleep. Requesting to wait on enema for a few hours. This RN will continue to monitor and offer enema again in AM per pt's request. * Tony Werner, RN - 04/17/2017 5:13 PM CDT Pt urine bright red with clots. Pt reports severe pain and is observed to be tearful. Paged primary for update- waiting on reply. [facility] [id number]- primary returned call. No orders at this time. in this encounter Plan of Treatment Name Priority Associated Diagnoses Order Schedule SURGICAL PATHOLOGY Routine ONCE for 1 Occurrences starting 04/19/2017 ECG 12-LEAD Routine ONE TIME for 1 Occurrences starting 04/22/2017 until 04/22/2017 as of this encounter Procedures Procedure Name Priority Date/Time Associated Diagnosis Comments TELEMETRY STRIPS-SCAN 05/03/2017 Results for this 9:24 AM CDT procedure are in the results section. CONSULT IV THERAPY TEAM Routine 04/21/2017 11:15 PM CDT ESOPHAGOGASTRODUODENOSCOP 04/19/2017 Dysphagia Y BIOPSY 9:10 AM CDT ESOPHAGOGASTRODUODENOSCOP 04/19/2017 Dysphagia Y 9:10 AM CDT in this encounter Results * TELEMETRY STRIPS-SCAN (05/03/2017 9:24 AM) Narrative Ordered by an unspecified provider. * POC GLUCOSE (04/28/2017 12:15 PM) Component Value Ref Range Glucose, POC 193 (H) 70 - 100 MG/DL Specimen Performing Laboratory MAIN LAB [address] [place] [address] * POC GLUCOSE (04/28/2017 7:35 AM) Component Value Ref Range Glucose, POC 163 (H) 70 - 100 MG/DL Specimen Performing Laboratory MAIN LAB [address] [place] [address] * MAGNESIUM (04/28/2017 5:23 AM) Component Value Ref Range Magnesium 2.1 1.6 - 2.6 mg/dL Specimen Performing Laboratory [facility] [address] [place] [address] * BASIC METABOLIC PANEL (04/28/2017 5:23 AM) Component Value Ref Range Sodium 139 [...] Performing Laboratory [facility] [address] [place] [address] * CBC AND DIFF (04/28/2017 5:23 AM) Component Value Ref Range White Blood Cells [...] Specimen Performing Laboratory [facility] [address] [place] [address] * POC GLUCOSE (04/27/2017 9:33 PM) Component Value Ref Range Glucose, POC 235 (H) 70 - 100 MG/DL Specimen Performing Laboratory [facility] [address] [place] [address] * POC GLUCOSE (04/27/2017 8:48 PM) Component Value Ref Range Glucose, POC 180 (H) 70 - 100 MG/DL Specimen Performing Laboratory [facility] [address] [place] [address] * POC GLUCOSE (04/27/2017 4:47 PM) Component Value Ref Range Glucose, POC 146 (H) 70 - 100 MG/DL Specimen Performing Laboratory [facility] [address] [place], [place] [id number] * POC GLUCOSE (04/27/2017 11:54 AM) Component Value Ref Range Glucose, POC 174 (H) 70 - 100 MG/DL Specimen Performing Laboratory [facility] [address] [place] [address] * POC GLUCOSE (04/27/2017 8:30 AM) Component Value Ref Range Glucose, POC 204 (H) 70 - 100 MG/DL Specimen Performing Laboratory [facility] [address] [place] [address] * MAGNESIUM (04/27/2017 4:54 AM) Component Value Ref Range Magnesium 2.2 1.6 - 2.6 mg/dL Specimen Performing Laboratory Blood [facility] [address] [place], [place] [id number] * BASIC METABOLIC PANEL (04/27/2017 4:54 AM) Component Value Ref Range Sodium 138 137 - 147 MMOL/L Potassium 4.8 3.5 - 5.1 MMOL/L Chloride 105 98 - 110 MMOL/L CO2 25 21 - 30 MMOL/L Anion Gap 8 3 - 12 Glucose 96 70 - 100 MG/DL Blood Urea Nitrogen 13 7 - 25 MG/DL Creatinine 0.53 0.4 - 1.00 MG/DL Calcium 8.8 8.5 - 10.6 MG/DL eGFR Non >60 [...] Pharmacist for questions. Specimen Performing Laboratory Blood MAIN [facility] [address] [place] [id number] * POC GLUCOSE (04/26/2017 9:01 PM) Component Value Ref Range Glucose, POC 93 70 - 100 MG/DL Specimen Performing Laboratory [facility] [address] [place] [address] * POC GLUCOSE (04/26/2017 4:59 PM) Component Value Ref Range Glucose, POC 120 (H) 70 - 100 MG/DL Specimen Performing Laboratory MAIN LAB [address] [place] [address] * POC GLUCOSE (04/26/2017 11:06 AM) Component Value Ref Range Glucose, POC 110 (H) 70 - 100 MG/DL Specimen Performing Laboratory [facility] [address] [place] [address] * POC GLUCOSE (04/26/2017 7:20 AM) Component Value Ref Range Glucose, POC 121 (H) 70 - 100 MG/DL Specimen Performing Laboratory [facility] [address] [place], [place] [id number] * MAGNESIUM (04/26/2017 5:55 AM) Component Value Ref Range Magnesium 2.2 1.6 - 2.6 mg/dL Specimen Performing Laboratory Blood [facility] [address] [place], [place] [phone] * BASIC METABOLIC PANEL (04/26/2017 5:55 AM) Component Value Ref Range Sodium 140 137 - 147 MMOL/L Potassium 4.2 3.5 - 5.1 MMOL/L Chloride 106 98 - 110 MMOL/L CO2 29 21 - 30 MMOL/L Anion Gap 5 3 - 12 Glucose 120 (H) 70 - 100 MG/DL Blood Urea Nitrogen 16 7 - 25 MG/DL Creatinine 0.56 0.4 - 1.00 MG/DL Calcium 8.3 (L) 8.5 - 10.6 MG/DL eGFR Non >60 [...] Pharmacist for questions. Specimen Performing Laboratory Blood [facility] [address] [place] [id number] * CBC AND DIFF (04/26/2017 5:55 AM) Component Value Ref Range White Blood Cells 7.3 4.5 - 11.0 K/UL RBC 4.26 4.0 - 5.0 M/UL Hemoglobin 13.4 12.0 - 15.0 GM/DL Hematocrit 39.9 36 - 45 % MCV 93.7 80 - 100 FL MCH 31.5 26 - 34 PG MCHC 33.6 32.0 - 36.0 G/DL RDW 14.1 11 - 15 % Platelet Count 181 150 - 400 K/UL MPV 7.6 7 - 11 FL Neutrophils 62 41 - 77 % Lymphocytes 28 24 - 44 % Monocytes 7 4 - 12 % Eosinophils 3 0 - 5 % Basophils 0 0 - 2 % Absolute Neutrophil Count 4.50 1.8 - 7.0 K/UL Absolute Lymph Count 2.00 1.0 - 4.8 K/UL Absolute Monocyte Count 0.50 0 - 0.80 K/UL Absolute Eosinophil Count 0.20 0 - 0.45 K/UL Absolute Basophil Count 0.00 0 - 0.20 K/UL Specimen Performing Laboratory Blood [facility] [address] [place] [id number] * POC GLUCOSE (04/25/2017 8:45 PM) Component Value Ref Range Glucose, POC 159 (H) 70 - 100 MG/DL Specimen Performing Laboratory [facility] [address] [place] [address] * POC GLUCOSE (04/25/2017 4:58 PM) Component Value Ref Range Glucose, POC 112 (H) 70 - 100 MG/DL Specimen Performing Laboratory [facility] [address] [place] [address] * POC GLUCOSE (04/25/2017 11:25 AM) Component Value Ref Range Glucose, POC 117 (H) 70 - 100 MG/DL Specimen Performing Laboratory [facility] [address] [place] [address] * POC GLUCOSE (04/25/2017 8:06 AM) Component Value Ref Range Glucose, POC 128 (H) 70 - 100 MG/DL Specimen Performing Laboratory [facility] [address] [place] [address] * MAGNESIUM (04/25/2017 4:50 AM) Component Value Ref Range Magnesium 2.2 1.6 - 2.6 mg/dL Specimen Performing Laboratory Blood MAIN [facility] [address] [place] [id number] * BASIC METABOLIC PANEL (04/25/2017 4:50 AM) Component Value Ref Range Sodium 139 137 - 147 MMOL/L Potassium 4.4 3.5 - 5.1 MMOL/L Chloride 105 98 - 110 MMOL/L CO2 29 21 - 30 MMOL/L Anion Gap 5 3 - 12 Glucose 95 70 - 100 MG/DL Blood Urea Nitrogen 16 7 - 25 MG/DL Creatinine 0.57 0.4 - 1.00 MG/DL Calcium 8.6 8.5 - 10.6 MG/DL eGFR Non >60 [...] Pharmacist for questions. Specimen Performing Laboratory Blood MAIN [facility] [address] [place] [address] * CBC AND DIFF (04/25/2017 4:50 AM) Component Value Ref Range White Blood Cells 7.1 4.5 - 11.0 K/UL RBC 4.39 4.0 - 5.0 M/UL Hemoglobin 13.9 12.0 - 15.0 GM/DL Hematocrit 41.1 36 - 45 % MCV 93.7 80 - 100 FL MCH 31.6 26 - 34 PG MCHC 33.8 32.0 - 36.0 G/DL RDW 13.5 11 - 15 % Platelet Count 186 150 - 400 K/UL MPV 7.6 7 - 11 FL Neutrophils 54 41 - 77 % Lymphocytes 37 24 - 44 % Monocytes 6 4 - 12 % Eosinophils 3 0 - 5 % Basophils 0 0 - 2 % Absolute Neutrophil Count 3.80 1.8 - 7.0 K/UL Absolute Lymph Count 2.60 1.0 - 4.8 K/UL Absolute Monocyte Count 0.40 0 - 0.80 K/UL Absolute Eosinophil Count 0.20 0 - 0.45 K/UL Absolute Basophil Count 0.00 0 - 0.20 K/UL Specimen Performing Laboratory Blood [facility] [address] [place] [address] * POC GLUCOSE (04/24/2017 9:19 PM) Component Value Ref Range Glucose, POC 140 (H) 70 - 100 MG/DL Specimen Performing Laboratory [facility] [address] [place] [address] * POC GLUCOSE (04/24/2017 8:36 PM) Component Value Ref Range Glucose, POC 134 (H) 70 - 100 MG/DL Specimen Performing Laboratory [facility] [address] [place] [address] * POC GLUCOSE (04/24/2017 6:18 PM) Component Value Ref Range Glucose, POC 125 (H) 70 - 100 MG/DL Specimen Performing Laboratory [facility] [address] [place] [address] * POC GLUCOSE (04/24/2017 11:32 AM) Component Value Ref Range Glucose, POC 118 (H) 70 - 100 MG/DL Specimen Performing Laboratory [facility] [address] [place] [address] * POC GLUCOSE (04/24/2017 7:11 AM) Component Value Ref Range Glucose, POC 89 70 - 100 MG/DL Specimen Performing Laboratory [facility] [address] [place] [address] * MAGNESIUM (04/24/2017 5:48 AM) Component Value Ref Range Magnesium 2.1 1.6 - 2.6 mg/dL Specimen Performing Laboratory Blood [facility] [address] [place], [place] [phone] * BASIC METABOLIC PANEL (04/24/2017 5:48 AM) Component Value Ref Range Sodium 137 137 - 147 MMOL/L Potassium 4.3 3.5 - 5.1 MMOL/L Chloride 103 98 - 110 MMOL/L CO2 30 21 - 30 MMOL/L Anion Gap 4 3 - 12 Glucose 99 70 - 100 MG/DL Blood Urea Nitrogen 15 7 - 25 MG/DL Creatinine 0.53 0.4 - 1.00 MG/DL Calcium 8.5 8.5 [...] Pharmacist for questions. Specimen Performing Laboratory Blood [facility]IN [facility] [address] [place] [phone] * CBC AND DIFF (04/24/2017 5:48 AM) Component Value Ref Range White Blood Cells 7.1 4.5 - 11.0 K/UL RBC 4.23 4.0 - 5.0 M/UL Hemoglobin 13.5 12.0 - 15.0 GM/DL Hematocrit 39.9 36 - 45 % MCV 94.4 80 - 100 FL MCH 31.8 26 - 34 PG MCHC 33.7 32.0 - 36.0 G/DL RDW 14.0 11 - 15 % Platelet Count 176 150 - 400 K/UL MPV 7.6 7 - 11 FL Neutrophils 55 41 - 77 % Lymphocytes 35 24 - 44 % Monocytes 8 4 - 12 % Eosinophils 2 0 - 5 % Basophils 0 0 - 2 % Absolute Neutrophil Count 3.90 1.8 - 7.0 K/UL Absolute Lymph Count 2.50 1.0 - 4.8 K/UL Absolute Monocyte Count 0.60 0 - 0.80 K/UL Absolute Eosinophil Count 0.20 0 - 0.45 K/UL Absolute Basophil Count 0.00 0 - 0.20 K/UL Specimen Performing Laboratory Blood [facility] [address] [place] [address] * POC GLUCOSE (04/23/2017 9:23 PM) Component Value Ref Range Glucose, POC 158 (H) 70 - 100 MG/DL Specimen Performing Laboratory MAIN LAB [address] [place] [address] * POC GLUCOSE (04/23/2017 4:59 PM) Component Value Ref Range Glucose, POC 152 (H) 70 - 100 MG/DL Specimen Performing Laboratory MAIN LAB [address] [place] [address] * POC GLUCOSE (04/23/2017 12:34 PM) Component Value Ref Range Glucose, POC 198 (H) 70 - 100 MG/DL Specimen Performing Laboratory MAIN LAB [address] [place] [address] * POC GLUCOSE (04/23/2017 8:02 AM) Component Value Ref Range Glucose, POC 137 (H) 70 - 100 MG/DL Specimen Performing Laboratory MAIN LAB [address] [place] [address] * MAGNESIUM (04/23/2017 6:20 AM) Component Value Ref Range Magnesium 2.1 1.6 - 2.6 mg/dL Specimen Performing Laboratory Blood MAIN LAB [address] [place] [address] * BASIC METABOLIC PANEL (04/23/2017 6:20 AM) Component Value Ref Range Sodium 138 137 - 147 MMOL/L Potassium 4.2 3.5 - 5.1 MMOL/L Chloride 101 98 - 110 MMOL/L CO2 32 (H) 21 - 30 MMOL/L Anion Gap 5 3 - 12 Glucose 98 70 - 100 MG/DL Blood Urea Nitrogen 11 7 - 25 MG/DL Creatinine 0.55 0.4 - 1.00 MG/DL Calcium 8.9 8.5 - 10.6 MG/DL eGFR Non >60 [...] Pharmacist for questions. Specimen Performing Laboratory Blood MAIN LAB [address] [place] [address] * CBC AND DIFF (04/23/2017 6:20 AM) Component Value Ref Range White Blood Cells 6.9 4.5 - 11.0 K/UL RBC 4.42 4.0 - 5.0 M/UL Hemoglobin 14.0 12.0 - 15.0 GM/DL Hematocrit 41.4 36 - 45 % MCV 93.8 80 - 100 FL MCH 31.6 26 - 34 PG MCHC 33.7 32.0 - 36.0 G/DL RDW 14.0 11 - 15 % Platelet Count 182 150 - 400 K/UL MPV 7.5 7 - 11 FL Neutrophils 54 41 - 77 % Lymphocytes 35 24 - 44 % Monocytes 9 4 - 12 % Eosinophils 2 0 - 5 % Basophils 0 0 - 2 % Absolute Neutrophil Count 3.70 1.8 - 7.0 K/UL Absolute Lymph Count 2.40 1.0 - 4.8 K/UL Absolute Monocyte Count 0.60 0 - 0.80 K/UL Absolute Eosinophil Count 0.20 0 - 0.45 K/UL Absolute Basophil Count 0.00 0 - 0.20 K/UL Specimen Performing Laboratory Blood MAIN LAB [address] [place] [address] * POC GLUCOSE (04/22/2017 10:20 PM) Component Value Ref Range Glucose, POC 127 (H) 70 - 100 MG/DL Specimen Performing Laboratory MAIN LAB [address] [place] [address] * POC GLUCOSE (04/22/2017 5:55 PM) Component Value Ref Range Glucose, POC 164 (H) 70 - 100 MG/DL Specimen Performing Laboratory MAIN LAB [address] [place] [address] * 2-D + DOPPLER ECHOCARDIOGRAM (04/22/2017 3:19 PM) Component Value Ref Range BSA 2.68 m2 ECHO EF 65 % Referring Provider CV ECHO PV TOBACCO SAMPLE PULLER Interp Only Manager [employer] Height (in) in Weight Lbs lbs Rt [...] diameter cm LVOT area cm2 LVOT peak saba m/s LVOT peak VTI cm AV peak velocity 1.6 m/s Ao VTI cm Aortic valve area= cm2 , with a mean gradient of mmHg and a peak gradient of mmHg AV index (jena) AV mean gradient post mmHg stress AV [...] VN Nyquist AV Radius PISA AR Max Saba AV area PISA cm2 AV LVOT peak [...] PISA MS Radius cm MV Peak E Saba CW m/s PISA MS Angle Cor MV [...] Vn Nyquist m/s Radius cm Mr max saba m/s MR PISA EROA cm2 TV mean [...] VN Nyquist PISA TR Radius TR Max Saba TV area PISA cm2 RVOT diamter cm RVOT area cm2 RVOT peak saba m/s RVOT peak VTI cm PV mean gradient PV preak gradient mmHg PV valve area cm2 E/A ratio 1.25 IVRT msec Pulm vein S/D ratio TDI e' 0.120 m/s E/E' ratio 8.33 E wave decelartion time msec MV "A" wave duration msec Pulm vein "A" wave msec MV Peak E Saba PW 1.000 m/s MV Peak A Saba 0.800 m/s PV Peak S Saba m/s PV Peak D Saba m/s Right Heart Systolic TDI m/s S' [...] significant valvular abnormalities. No pericardial effusion. * POC GLUCOSE (04/22/2017 11:17 AM) Component Value Ref Range Glucose, POC 140 (H) 70 - 100 MG/DL Specimen Performing Laboratory MAIN LAB [address] [place] [address] * POC GLUCOSE (04/22/2017 7:43 AM) Component Value Ref Range Glucose, POC 150 (H) 70 - 100 MG/DL Specimen Performing Laboratory MAIN LAB [address] [place] [address] * MAGNESIUM (04/22/2017 4:26 AM) Component Value Ref Range Magnesium 2.0 1.6 - 2.6 mg/dL Specimen Performing Laboratory Blood MAIN LAB [address] [place] [address] * BASIC METABOLIC PANEL (04/22/2017 4:26 AM) Component Value Ref Range Sodium 136 (L) 137 - 147 MMOL/L Potassium 4.1 3.5 - 5.1 MMOL/L Chloride 98 98 - 110 MMOL/L CO2 32 (H) 21 - 30 MMOL/L Anion Gap 6 3 - 12 Glucose 122 (H) 70 - 100 MG/DL Blood Urea Nitrogen 13 7 - 25 MG/DL Creatinine 0.59 0.4 - 1.00 MG/DL Calcium 8.9 8.5 - 10.6 MG/DL eGFR Non >60 [...] Pharmacist for questions. Specimen Performing Laboratory Blood MAIN LAB [address] [place] [address] * CBC AND DIFF (04/22/2017 4:26 AM) Component Value Ref Range White Blood Cells 8.3 4.5 - 11.0 K/UL RBC 4.75 4.0 - 5.0 M/UL Hemoglobin 15.2 (H) 12.0 - 15.0 GM/DL Hematocrit 44.4 36 - 45 % MCV 93.3 80 - 100 FL MCH 31.9 26 - 34 PG MCHC 34.2 32.0 - 36.0 G/DL RDW 13.8 11 - 15 % Platelet Count 176 150 - 400 K/UL MPV 7.9 7 - 11 FL Neutrophils 62 41 - 77 % Lymphocytes 26 24 - 44 % Monocytes 10 4 - 12 % Eosinophils 2 0 - 5 % Basophils 0 0 - 2 % Absolute Neutrophil Count 5.10 1.8 - 7.0 K/UL Absolute Lymph Count 2.10 1.0 - 4.8 K/UL Absolute Monocyte Count 0.80 0 - 0.80 K/UL Absolute Eosinophil Count 0.10 0 - 0.45 K/UL Absolute Basophil Count 0.00 0 - 0.20 K/UL Specimen Performing Laboratory Blood MAIN LAB [address] [place] [address] * POC GLUCOSE (04/21/2017 10:47 PM) Component Value Ref Range Glucose, POC 113 (H) 70 - 100 MG/DL Specimen Performing Laboratory MAIN LAB [address] [place] [address] * POC GLUCOSE (04/21/2017 9:08 PM) Component Value Ref Range Glucose, POC 195 (H) 70 - 100 MG/DL Specimen Performing Laboratory [facility] MAIN LAB [address] [place] [address] * POC GLUCOSE (04/21/2017 5:37 PM) Component Value Ref Range Glucose, POC 153 (H) 70 - 100 MG/DL Specimen Performing Laboratory MAIN LAB [address] [place] [address] * POC GLUCOSE (04/21/2017 12:42 PM) Component Value Ref Range Glucose, POC 118 (H) 70 - 100 MG/DL Specimen Performing Laboratory MAIN LAB [address] [place] [address] * POC GLUCOSE (04/21/2017 8:02 AM) Component Value Ref Range Glucose, POC 122 (H) 70 - 100 MG/DL Specimen Performing Laboratory [facility] [address] [place] [address] * MAGNESIUM (04/21/2017 6:47 AM) Component Value Ref Range Magnesium 2.0 1.6 - 2.6 mg/dL Specimen Performing Laboratory Blood [facility] [address] [place] [address] * BASIC METABOLIC PANEL (04/21/2017 6:47 AM) Component Value Ref Range Sodium 136 (L) 137 - 147 MMOL/L Potassium 3.7 3.5 - 5.1 MMOL/L Chloride 97 (L) 98 - 110 MMOL/L CO2 35 (H) 21 - 30 MMOL/L Anion Gap 4 3 - 12 Glucose 126 (H) 70 - 100 MG/DL Blood Urea Nitrogen 11 7 - 25 MG/DL Creatinine 0.62 0.4 - 1.00 MG/DL Calcium 9.2 8.5 - 10.6 MG/DL eGFR Non >60 [...] Pharmacist for questions. Specimen Performing Laboratory Blood [facility] [address] [place] [address] * CBC AND DIFF (04/21/2017 6:47 AM) Component Value Ref Range White Blood Cells 8.4 4.5 - 11.0 K/UL RBC 4.81 4.0 - 5.0 M/UL Hemoglobin 15.4 (H) 12.0 - 15.0 GM/DL Hematocrit 45.1 (H) 36 - 45 % MCV 93.8 80 - 100 FL MCH 32.1 26 - 34 PG MCHC 34.2 32.0 - 36.0 G/DL RDW 13.9 11 - 15 % Platelet Count 168 150 - 400 K/UL MPV 7.9 7 - 11 FL Neutrophils 68 41 - 77 % Lymphocytes 22 (L) 24 - 44 % Monocytes 8 4 - 12 % Eosinophils 2 0 - 5 % Basophils 0 0 - 2 % Absolute Neutrophil Count 5.80 1.8 - 7.0 K/UL Absolute Lymph Count 1.80 1.0 - 4.8 K/UL Absolute Monocyte Count 0.60 0 - 0.80 K/UL Absolute Eosinophil Count 0.10 0 - 0.45 K/UL Absolute Basophil Count 0.00 0 - 0.20 K/UL Specimen Performing Laboratory Blood MAIN LAB [address] [place] [address] * POC GLUCOSE (04/20/2017 9:40 PM) Component Value Ref Range Glucose, POC 109 (H) 70 - 100 MG/DL Specimen Performing Laboratory MAIN LAB [address] [place] [address] * POC GLUCOSE (04/20/2017 6:01 PM) Component Value Ref Range Glucose, POC 130 (H) 70 - 100 MG/DL Specimen Performing Laboratory MAIN LAB [address] [place] [address] * MRI HEAD WO/W CONTRAST (04/20/2017 4:40 [...] Luke MD on 04/20/2017 4:43 PM. * POC GLUCOSE (04/20/2017 12:04 PM) Component Value Ref Range Glucose, POC 135 (H) 70 - 100 MG/DL Specimen Performing Laboratory MAIN LAB [address] [place] [address] * SHOULDER RIGHT 1V (04/20/2017 11:25 AM) [...] Ariel Peralta M.D. on 04/20/2017 12:17 PM. * POC IONIZED CALCIUM (04/20/2017 11:18 AM) Component Value Ref Range Ionized Calcium-POC 1.21 1.0 - 1.3 MMOL/L Specimen Performing Laboratory MAIN LAB [address] [place] [address] 106[address] * POC SODIUM (04/20/2017 11:18 AM) Component Value Ref Range Sodium-POC 134 (L) 137 - 147 MMOL/L Specimen Performing Laboratory MAIN LAB [address] [place] [address] * POC POTASSIUM (04/20/2017 11:18 AM) Component Value Ref Range Potassium-POC 3.5 3.5 - 5.1 MMOL/L Specimen Performing Laboratory MAIN LAB [address] [place] [address] * POC HEMATOCRIT (04/20/2017 11:18 AM) Component Value Ref Range Hemoglobin POC 15.6 (H) 12.0 - 15.0 GM/DL Hematocrit POC 46.0 (H) 36 - 45 % Specimen Performing Laboratory MAIN LAB [address] [place] [address] * POC BLOOD GAS ARTERIAL (04/20/2017 11:18 AM) Component Value Ref Range PH-ART-POC 7.42 7.35 - 7.45 AST5-OXZ-GWA 55 (H) 35 - 45 MMHG PO2-ART-POC 54 (L) 80 - 100 MMHG Base Ex-ART-POC 11.0 MMOL/L O2 Sat-ART-POC 87.0 (L) 95 - 99 % Exvvfignpoo-KCJ-SDI 35.4 (H) 21 - 28 MMOL/L Specimen Performing Laboratory MAIN LAB [address] [place] [address] 24648 * POC GLUCOSE (04/20/2017 10:20 AM) Component Value Ref Range Glucose, POC 165 (H) 70 - 100 MG/DL Specimen Performing Laboratory MAIN LAB [address] [place] [address] 6[address] * POC GLUCOSE (04/20/2017 8:14 AM) Component Value Ref Range Glucose, POC 108 (H) 70 - 100 MG/DL Specimen Performing Laboratory MAIN LAB [address] [place], [place] [id number] * MAGNESIUM (04/20/2017 5:04 AM) Component Value Ref Range Magnesium 2.1 1.6 - 2.6 mg/dL Specimen Performing Laboratory Blood MAIN LAB [address] [place], [place] [address] * BASIC METABOLIC PANEL (04/20/2017 5:04 AM) Component Value Ref Range Sodium 134 (L) 137 - 147 MMOL/L Potassium 4.4 3.5 - 5.1 MMOL/L Chloride 100 98 - 110 MMOL/L CO2 26 21 - 30 MMOL/L Anion Gap 8 3 - 12 Glucose 118 (H) 70 - 100 MG/DL Blood Urea Nitrogen 13 7 - 25 MG/DL Creatinine 0.63 0.4 - 1.00 MG/DL Calcium 8.8 8.5 - 10.6 MG/DL eGFR Non >60 [...] Pharmacist for questions. Specimen Performing Laboratory Blood MAIN LAB [address] [place], [place] [id number] * CBC AND DIFF (04/20/2017 5:04 AM) Component Value Ref Range White Blood Cells 8.5 4.5 - 11.0 K/UL RBC 4.83 4.0 - 5.0 M/UL Hemoglobin 15.3 (H) 12.0 - 15.0 GM/DL Hematocrit 45.2 (H) 36 - 45 % MCV 93.6 80 - 100 FL MCH 31.7 26 - 34 PG MCHC 33.9 32.0 - 36.0 G/DL RDW 13.8 11 - 15 % Platelet Count 169 150 - 400 K/UL MPV 8.1 7 - 11 FL Neutrophils 64 41 - 77 % Lymphocytes 25 24 - 44 % Monocytes 10 4 - 12 % Eosinophils 1 0 - 5 % Basophils 0 0 - 2 % Absolute Neutrophil Count 5.40 1.8 - 7.0 K/UL Absolute Lymph Count 2.10 1.0 - 4.8 K/UL Absolute Monocyte Count 0.90 (H) 0 - 0.80 K/UL Absolute Eosinophil Count 0.10 0 - 0.45 K/UL Absolute Basophil Count 0.00 0 - 0.20 K/UL Specimen Performing Laboratory Blood [facility] [address] [place], [place] [id number] * POC GLUCOSE (04/19/2017 9:24 PM) Component Value Ref Range Glucose, POC 154 (H) 70 - 100 MG/DL Specimen Performing Laboratory [facility] [address] [place], [place] [phone] * POC GLUCOSE (04/19/2017 5:46 PM) Component Value Ref Range Glucose, POC 135 (H) 70 - 100 MG/DL Specimen Performing Laboratory [facility] [address] [place] [address] * POC GLUCOSE (04/19/2017 1:36 PM) Component Value Ref Range Glucose, POC 171 (H) 70 - 100 MG/DL Specimen Performing Laboratory [facility] [address] [place] [address] * POC GLUCOSE (04/19/2017 11:07 AM) Component Value Ref Range Glucose, POC 132 (H) 70 - 100 MG/DL Specimen Performing Laboratory [facility] [address] [place], [place] [phone] * SURGICAL PATHOLOGY (04/19/2017 11:07 AM) Component Value Ref Range PATHOLOGY REPORT [facility] [email or web address] Gwendolyn Lopez MD, PhD, Director of Anatomic Pathology Department of Pathology and Laboratory Medicine [address] [place] [id number] Surgical Pathology Office: [phone] SURGICAL PATHOLOGY REPORT NAME: YOMAIRA SHERIFF SURG PATH #: [id number] MR #: [id number] SPECIMEN CLASS: SR BILLING #: [id number] ALT ID #: LOCATION: [facility] DATE OF PROCEDURE: 04/19/2017 AGE: 51 SEX: F DATE RECEIVED: 04/19/2017 : 1965 TIME RECEIVED: 11:07 PHYSICIAN: EFFIE MOREL DATE OF REPORT: 04/20/2017 COPY TO: [...] in this report. +++Electronically Signed Out By+++ [facility]/04/19/2017 Interpreted by: Jarett Basilio MD, Attending Physician [...] Burnette Procedure Date: 04/19/2017 8:48 AM CSN: [id number] Date of : 1965 Gender: Female Attending Physician: Effie Morel MD Procedure: Upper GI endoscopy Indications: Ep igastric abdominal pain Providers: Effie Morel MD (Doctor), Hussein Cavanaugh MD (Fellow), Jalyn Reynolds RN (Nurse), Kay Degroot RN (Nurse), Travis Mccann, Borough Coordinator (Borough Coordinator) Referring Physician: Darien Lemon MD Medications: Pr [...] 3 seconds Procedure Code(s): --- Professional --- 04178, Esophagogastroduodenoscopy, flexible, transoral; with biopsy, single or multiple Diagnosis Code(s): --- Professional --- Z98.84, Bariatric surgery status K31.9, Disease of stomach and duodenum, unspecified T18.2XXA, Foreign body in stomach, initial encounter R10.13, Epigastric pain CPT copyright 2015 [employer]. All rights reserved. The codes documented in this report are preliminary and upon director of restaurant review may be revised to meet current compliance requirements. Attending Participation: I was present and participated during the entire procedure, including non-estrada portions. MD Effie Whitman MD 04/19/2017 9:49:25 AM The attending physician has electronically signed and finalized this document. Hussein Cavanaugh MD Number of Addenda: 0 Note Initiated On: 04/19/2017 8:48 AM Specimen Performing Laboratory [facility] OTHER RESULTS * POC GLUCOSE (04/19/2017 7:39 AM) Component Value Ref Range Glucose, POC 108 (H) 70 - 100 MG/DL Specimen Performing Laboratory [facility] MAIN LAB [address] [place] [address] * MAGNESIUM (04/19/2017 4:59 AM) Component Value Ref Range Magnesium 1.8 1.6 - 2.6 mg/dL Specimen Performing Laboratory Blood MAIN LAB [address] [place] [address] * BASIC METABOLIC PANEL (04/19/2017 4:59 AM) Component Value Ref Range Sodium 137 137 - 147 MMOL/L Potassium 3.7 3.5 - 5.1 MMOL/L Chloride 100 98 - 110 MMOL/L CO2 30 21 - 30 MMOL/L Anion Gap 7 3 - 12 Glucose 108 (H) 70 - 100 MG/DL Blood Urea Nitrogen 13 7 - 25 MG/DL Creatinine 0.62 0.4 - 1.00 MG/DL Calcium 8.8 8.5 - 10.6 MG/DL eGFR Non >60 [...] Pharmacist for questions. Specimen Performing Laboratory Blood MAIN LAB [address] [place] [address] * CBC AND DIFF (04/19/2017 4:59 AM) Component Value Ref Range White Blood Cells 6.2 4.5 - 11.0 K/UL RBC 4.63 4.0 - 5.0 M/UL Hemoglobin 14.8 12.0 - 15.0 GM/DL Hematocrit 43.0 36 - 45 % MCV 92.9 80 - 100 FL MCH 32.0 26 - 34 PG MCHC 34.4 32.0 - 36.0 G/DL RDW 14.1 11 - 15 % Platelet Count 170 150 - 400 K/UL MPV 7.8 7 - 11 FL Neutrophils 65 41 - 77 % Lymphocytes 25 24 - 44 % Monocytes 8 4 - 12 % Eosinophils 2 0 - 5 % Basophils 0 0 - 2 % Absolute Neutrophil Count 4.00 1.8 - 7.0 K/UL Absolute Lymph Count 1.60 1.0 - 4.8 K/UL Absolute Monocyte Count 0.50 0 - 0.80 K/UL Absolute Eosinophil Count 0.10 0 - 0.45 K/UL Absolute Basophil Count 0.00 0 - 0.20 K/UL Specimen Performing Laboratory Blood MAIN LAB [address] [place] [address] * POC GLUCOSE (04/18/2017 9:36 PM) Component Value Ref Range Glucose, POC 136 (H) 70 - 100 MG/DL Specimen Performing Laboratory MAIN LAB [address] [place] [address] * POC GLUCOSE (04/18/2017 6:34 PM) Component Value Ref Range Glucose, POC 110 (H) 70 - 100 MG/DL Specimen Performing Laboratory MAIN LAB [address] [place] [address] 9[address] * POC GLUCOSE (04/18/2017 12:56 PM) Component Value Ref Range Glucose, POC 128 (H) 70 - 100 MG/DL Specimen Performing Laboratory MAIN LAB [address] [place] [address] * POC GLUCOSE (04/18/2017 8:56 AM) Component Value Ref Range Glucose, POC 150 (H) 70 - 100 MG/DL Specimen Performing Laboratory MAIN LAB [address] [place] [address] * MAGNESIUM (04/18/2017 7:31 AM) Component Value Ref Range Magnesium 1.9 1.6 - 2.6 mg/dL Specimen Performing Laboratory Blood MAIN LAB [address] [place] [address] * BASIC METABOLIC PANEL (04/18/2017 7:31 AM) Component Value Ref Range Sodium 140 137 - 147 MMOL/L Potassium 3.6 3.5 - 5.1 MMOL/L Chloride 104 98 - 110 MMOL/L CO2 30 21 - 30 MMOL/L Anion Gap 6 3 - 12 Glucose 114 (H) 70 - 100 MG/DL Blood Urea Nitrogen 10 7 - 25 MG/DL Creatinine 0.67 0.4 - 1.00 MG/DL Calcium 9.1 8.5 - 10.6 MG/DL eGFR Non >60 [...] Pharmacist for questions. Specimen Performing Laboratory Blood MAIN LAB [address] [place], [place] [id number] * CBC AND DIFF (04/18/2017 7:31 AM) Component Value Ref Range White Blood Cells 6.4 4.5 - 11.0 K/UL RBC 4.68 4.0 - 5.0 M/UL Hemoglobin 14.7 12.0 - 15.0 GM/DL Hematocrit 43.7 36 - 45 % MCV 93.4 80 - 100 FL MCH 31.5 26 - 34 PG MCHC 33.7 32.0 - 36.0 G/DL RDW 14.3 11 - 15 % Platelet Count 172 150 - 400 K/UL MPV 7.6 7 - 11 FL Neutrophils 60 41 - 77 % Lymphocytes 29 24 - 44 % Monocytes 9 4 - 12 % Eosinophils 2 0 - 5 % Basophils 0 0 - 2 % Absolute Neutrophil Count 3.80 1.8 - 7.0 K/UL Absolute Lymph Count 1.90 1.0 - 4.8 K/UL Absolute Monocyte Count 0.60 0 - 0.80 K/UL Absolute Eosinophil Count 0.20 0 - 0.45 K/UL Absolute Basophil Count 0.00 0 - 0.20 K/UL Specimen Performing Laboratory Blood MAIN LAB [address] [place] [address] * HEMOGLOBIN A1C (04/18/2017 7:31 AM) Component Value Ref Range Hemoglobin A1C 5.9 4.0 - 6.0 % Comment: The ADA recommends that most patients with type 1 and type 2 diabetes maintain an A1c level <7%. Specimen Performing Laboratory Blood MAIN LAB [address] [place] [address] * POC GLUCOSE (04/17/2017 9:23 PM) Component Value Ref Range Glucose, POC 119 (H) 70 - 100 MG/DL Specimen Performing Laboratory MAIN LAB [address] [place] [address] 8[address]83 * POC GLUCOSE (04/17/2017 5:52 PM) Component Value Ref Range Glucose, POC 105 (H) 70 - 100 MG/DL Specimen Performing Laboratory MAIN LAB [address] [place] [address] * CT ABD/PELV WO CONTRAST (04/17/2017 10:01 [...] Mooney M.D. on 04/17/2017 10:03 AM. * CULTURE-URINE W/SENSITIVITY (04/17/2017 9:41 AM) Component Value Ref Range Battery Name URINE CULTURE Specimen Description URINE Special Requests NONE Culture >100,000 organisms/ml ESCHERICHIA COLI (A) Report Status FINAL 04/19/2017 Organism ID >100,000 organisms/ml ESCHERICHIA COLI Specimen Performing Laboratory Urine MAIN LAB [address] [place] [address] Organism Antibiotic Method Susceptibility >100,000 organisms/ml Ampicillin [...] DANIAL (MCG/ML) escherichia coli INTERPRETATION INTERPRETATION * URINALYSIS, MICROSCOPIC (04/17/2017 9:41 AM) Component Value Ref Range WBCs,UA 10-20 0 - 2 /HPF RBCs,UA 2-10 0 - 3 /HPF MucousUA 4+ Bacteria,UA PACKED (A) NEG-NEG Squamous Epithelial Cells 0-2 0 - 5 Calcium Oxalate Crystals FEW Specimen Performing Laboratory Urine MAIN LAB [address] [place] [address] * URINALYSIS DIPSTICK (04/17/2017 9:41 AM) Component Value Ref Range Color,UA JENNY Turbidity,UA 2+ (A) CLEAR-CLEAR Specific Manson-Urine 1.029 1.003 - 1.035 pH,UA 5.0 5.0 [...] false negative result. Specimen Performing Laboratory Urine [facility] [address] [place] [address] * POC CREATININE, RAD (04/17/2017 9:09 AM) Component Value Ref Range Creatinine, POC 0.6 0.4 - 1.00 MG/DL Specimen Performing Laboratory [facility] [address] [place] [address] * POC LACTATE (04/17/2017 9:08 AM) Component Value Ref Range LACTIC ACID POC 1.1 0.5 - 2.0 MMOL/L Specimen Performing Laboratory [facility] [address] [place] [address] * PTT (APTT) (04/17/2017 9:07 AM) Component Value Ref Range APTT 28.8 24.0 - 40.0 SEC Specimen Performing Laboratory Blood [facility] [address] [place] [address] * PROTIME INR (PT) (04/17/2017 9:07 AM) Component Value Ref Range INR 1.0 0.8 - 1.2 Specimen Performing Laboratory Blood [facility] MAIN LAB [address] [place] [address] * LIPASE (04/17/2017 9:07 AM) Component Value Ref Range Lipase 10 (L) 11 - 82 U/L Specimen Performing Laboratory Blood [facility] MAIN [facility] [address] [place] [address] * COMPREHENSIVE METABOLIC PANEL (04/17/2017 9:07 AM) [...] Performing Laboratory Blood [facility] MAIN [facility] [address] [place] [address] * CBC AND DIFF (04/17/2017 9:07 AM) Component Value Ref Range White Blood Cells 8.3 4.5 - 11.0 K/UL RBC 4.74 4.0 - 5.0 M/UL Hemoglobin 15.0 12.0 - 15.0 GM/DL Hematocrit 44.3 36 - 45 % MCV 93.6 80 - 100 FL MCH 31.7 26 - 34 PG MCHC 33.9 32.0 - 36.0 G/DL RDW 14.3 11 - 15 % Platelet Count 197 150 - 400 K/UL MPV 7.9 7 - 11 FL Neutrophils 72 41 - 77 % Lymphocytes 20 (L) 24 - 44 % Monocytes 7 4 - 12 % Eosinophils 1 0 - 5 % Basophils 0 0 - 2 % Absolute Neutrophil Count 5.90 1.8 - 7.0 K/UL Absolute Lymph Count 1.70 1.0 - 4.8 K/UL Absolute Monocyte Count 0.60 0 - 0.80 K/UL Absolute Eosinophil Count 0.10 0 - 0.45 K/UL Absolute Basophil Count 0.00 0 - 0.20 K/UL Specimen Performing Laboratory Blood [facility]IN [facility] [address] [place] [address] in this encounter Visit Diagnoses Diagnosis Recurrent abdominal hernia without obstruction or gangrene, unspecified hernia type - Primary Abdominal pain, unspecified location Urinary tract infection, site unspecified Hernia of abdominal cavity Hernia of unspecified site of abdominal cavity without mention of obstruction or gangrene Colonic constipation Other constipation Allergy to radiographic contrast media Allergy to radiographic dye Allergy to latex Aspirin allergy Other drug allergy Hyperthermia-induced defect Fever, unspecified Seizure (HCC) Other convulsions Syncope, unspecified syncope type Transient alteration of awareness Involuntary movements Abnormal involuntary movements Encephalopathy Encephalopathy, unspecified History of traumatic brain injury Personal history of traumatic brain injury in this encounter Admitting Diagnoses Diagnosis UTI (urinary tract infection) Generalized abdominal pain - Abdominal pain Dysphagia Dysphagia, unspecified in this encounter Administered Medications Medication Order MAR Action Action Date Dose Rate Site acetaminophen (TYLENOL) tablet 650 mg Given 04/24/2017 650 mg 650 mg, Oral, EVERY 6 HOURS PRN, 21:19 CDT Starting 04/17/17 at 1419, Until Angelica 04/28/17 at 1851, Pain non-opioid: may be used alone or in combination with opioid analgesia, TOTAL ACETAMINOPHEN DOSE NOT TO EXCEED 4GM DAILY Given 04/26/2017 650 mg 21:06 CDT Given 04/27/2017 650 mg 06:39 CDT ARIPiprazole (ABILIFY) tablet 5 mg Given 04/25/2017 5 mg 5 mg, Oral, AT BEDTIME DAILY, First dose 20:46 CDT on 04/17/17 at 2100, Until Discontinued Given 04/26/2017 5 mg 21:08 CDT Given 04/27/2017 5 mg 20:50 CDT bisacodyl (DULCOLAX) rectal suppository Given 04/18/2017 10 mg 10 mg 21:30 CDT 10 mg, Rectal, ONCE, 1 dose, 04/18/17 at 2130, Hold for loose stools cefTRIAXone (ROCEPHIN) IVP 1 g Given 04/17/2017 1 g 1 g, Intravenous, ONCE, 1 dose, [place] 11:45 CDT 04/17/17 at 1130, INSTR: IV PUSH -- RECONSTITUTE EACH 1 GM WITH 10 MLS 0.9% NACL cefTRIAXone (ROCEPHIN) IVP 1 g Given 04/18/2017 1 g 1 g, Intravenous, EVERY 24 HOURS, First 14:01 CDT dose on 04/18/17 at 1100, Until Discontinued, INSTR: IV PUSH -- RECONSTITUTE EACH 1 GM WITH 10 MLS 0.9% NACL Given 04/19/2017 1 g 11:47 CDT Given 04/20/2017 1 g 11:08 CDT cephalexin (KEFLEX) capsule 500 mg Given 04/21/2017 500 mg 500 mg, Oral, TWICE DAILY, 4 doses, 21:23 CDT First dose on Angelica 04/21/17 at 0900, Last dose on Tue04/22/17 at 2100 Given 04/22/2017 500 mg 10:51 CDT Given 04/22/2017 500 mg 22:18 CDT diphenhydrAMINE (BENADRYL) injection 50 Given 04/17/2017 50 mg mg 09:10 CDT 50 mg, Intravenous, ONCE, 1 dose, [place] 04/17/17 at 0845 enoxaparin (LOVENOX) syringe 40 mg Given 04/27/2017 40 mg Abdomen:LUQ 40 mg, Subcutaneous, TWICE DAILY, First 08:32 CDT dose on [place] 04/17/17 at 1430, Until Discontinued, For patients undergoing surgery: Consult physician in advance -- enoxaparin is an anticoagulant and may need to be held for 12hr prior to surgery or invasive procedures. NOTE: This is a HIGH ALERT Medication. Given 04/27/2017 40 mg Abdomen:LLQ 20:46 CDT Given 04/28/2017 40 mg Abdomen:RLQ 08:16 CDT furosemide (LASIX) tablet 40 mg Given 04/20/2017 40 mg 40 mg, Oral, TWICE DAILY, First dose on 08:22 CDT [place] 04/17/17 at 1445, Until Discontinued Given 04/20/2017 40 mg 22:02 CDT Given 04/21/2017 40 mg 08:10 CDT furosemide (LASIX) tablet 40 mg Given 04/27/2017 40 mg 40 mg, Oral, TWICE DAILY, First dose on 08:31 CDT 04/26/17 at 1115, Until Discontinued Given 04/27/2017 40 mg 17:18 CDT Given 04/28/2017 40 mg 08:15 CDT gadobenate dimeglumine (MULTIHANCE) Given 04/20/2017 20 mL Arm, Right injection 20 mL 16:30 CDT 20 mL, Intravenous, ONCE, 1 dose, Tue04/20/17 at 1630, NOTE: This is a HIGH ALERT Medication. hydroCHLOROthiazide (HYDRODIURIL) tablet Given 04/19/2017 25 mg 25 mg 07:57 CDT 25 mg, Oral, EVERY MORNING, First dose on Tue04/17/17 at 1445, Until Discontinued Given 04/20/2017 25 mg 08:22 CDT Given 04/21/2017 25 mg 08:09 CDT hydrOXYzine (ATARAX) tablet 25-50 mg Given 04/25/2017 25 mg 25-50 mg, Oral, THREE TIMES DAILY PRN, 17:03 CDT Starting Tue04/17/17 at 1427, Until Angelica 04/28/17 at 1851, Anxiety PO insulin aspart (NOVOLOG FLEXPEN) Given 04/27/2017 0 Units Arm, Left injection PEN 0-7 Units 20:49 CDT 0-7 Units, Subcutaneous, BEFORE MEALS AND AT BEDTIME, First dose on Tue04/17/17 at 1700, Until Discontinued, -POC glucose 140-180mg/dL at , , administer 1 unit insulin, at 21, 03* administer 0 units. -POC glucose 181-220mg/dL at , , administer 2 units insulin, at 21, 03* administer 1 unit. -POC glucose 221-260mg/dL at , administer 3 units insulin, at , 03* administer 2 units. -POC glucose 261-300mg/dL at , administer 4 units insulin, at 21, 03* administer 3 units. -POC glucose 301-350mg/dL at , , administer 5 units insulin, at 21, 03* administer 4 units. -POC glucose 351-400mg/dL at , , administer 6 units insulin, at 21, 03* administer 5 units. -POC glucose >400mg/dL at 07, , administer 7 units insulin, at , 03* administer 6 units. *only if ordered 5x's daily For POCT glucose >350mg/dL give correction bolus and recheck POCT glucose in 2 hours. If POCT glucose at 2 hours >300mg/dL call physician for further orders. For patients who are not eating meals, continue to administer the appropriate correction factor. NOTE: This is a HIGH ALERT Medication. Given 04/28/2017 1 Units Abdomen:RUQ 09:06 CDT Given 04/28/2017 2 Units Abdomen:RUQ 12:51 CDT levETIRAcetam (KEPPRA) 1,000 mg in Given - New 04/20/2017 1,000 mg 400 mL/hr sodium chloride 0.9% (NS) 100 mL IVPB Bag 11:06 CDT 1,000 mg, 100 mL, for 15 Minutes, Intravenous, ONCE, 1 dose, Tue04/20/17 at 1030 levETIRAcetam (KEPPRA) tablet 1,000 mg Given 04/24/2017 1,000 mg 1,000 mg, Oral, TWICE DAILY, First dose 09:22 CDT on Tue04/20/17 at 2100, Until Discontinued Given 04/24/2017 1,000 mg 21:20 CDT Given 04/25/2017 1,000 mg 08:21 CDT levETIRAcetam (KEPPRA) tablet 500 mg Given 04/19/2017 500 mg 500 mg, Oral, TWICE DAILY, First dose on 13:47 CDT 04/19/17 at 1400, Until Discontinued Given 04/19/2017 500 mg 20:26 CDT Given 04/20/2017 500 mg 08:22 CDT levETIRAcetam (KEPPRA) tablet 500 mg Given 04/25/2017 500 mg 500 mg, Oral, TWICE DAILY, First dose on 20:36 CDT 04/25/17 at 2100, Until Discontinued Given 04/26/2017 500 mg 09:03 CDT levETIRAcetam (KEPPRA) tablet 500 mg Given 04/27/2017 500 mg 500 mg, Oral, TWICE DAILY, First dose on 15:17 CDT Tue04/27/17 at 1500, Until Discontinued Given 04/27/2017 500 mg 20:50 CDT Given 04/28/2017 500 mg 08:15 CDT lisinopril (PRINIVIL; ZESTRIL) tablet 20 Given 04/19/2017 20 mg mg 07:57 CDT 20 mg, Oral, DAILY, First dose on 04/17/17 at 1445, Until Discontinued Given 04/20/2017 20 mg 08:22 CDT Given 04/21/2017 20 mg 08:09 CDT meclizine (ANTIVERT) tablet 25 mg Given 04/27/2017 25 mg 25 mg, Oral, THREE TIMES DAILY, First 20:46 CDT dose on Tue04/22/17 at 1015, Until Discontinued Given 04/28/2017 25 mg 08:16 CDT Given 04/28/2017 25 mg 14:44 CDT morphine injection syringe 8 mg Given 04/17/2017 8 mg 8 mg, Intravenous, ONCE, 1 dose, Sun 09:11 CDT 04/17/17 at 0845 nicotine (NICODERM CQ STEP 2) 14 mg/day Patch 04/26/2017 1 patch Arm, Left patch 1 Patch Applied 09:02 CDT 1 Patch, Transdermal, for 24 Hours, DAILY, First dose on 04/24/17 at 1545, Until Discontinued Patch Applied 04/27/2017 1 patch Right Arm 08:31 CDT Patch Applied 04/28/2017 1 patch Arm, Left 08:17 CDT ondansetron (ZOFRAN) injection 4 mg Given 04/20/2017 4 mg 4 mg, Intravenous, EVERY 6 HOURS PRN, 12:13 CDT Starting 04/17/17 at 1419, Until Angelica 04/28/17 at 1851, Nausea/Vomiting Injectable Given 04/22/2017 4 mg 08:59 CDT Given 04/26/2017 4 mg 21:15 CDT ondansetron (ZOFRAN) tablet 4 mg Given 04/19/2017 4 mg 4 mg, Oral, EVERY 6 HOURS PRN, Starting 15:47 CDT 04/17/17 at 1419, Until Angelica 04/28/17 at 1851, Nausea/Vomiting PO Given 04/20/2017 4 mg 13:59 CDT Given 04/26/2017 4 mg 18:[address] (PROTONIX) tablet 40 mg Given 04/27/2017 40 mg 40 mg, Oral, TWICE DAILY BEFORE MEALS, 06:39 CDT First dose on 04/17/17 at 1700, Until Discontinued, Do not crush or chew tablet. Given 04/27/2017 40 mg 17:18 CDT Given 04/28/2017 40 mg 08:15 CDT perflutren lipid microspheres (DEFINITY) Given 04/22/2017 2 Diluted mL injection 1-20 Diluted mL 15:38 CDT 1-20 Diluted mL, Intravenous, ONCE IN MAC, 1 dose, Tue04/22/17 at 1530, NOTE: This is a HIGH ALERT Medication. polyethylene glycol 3350 (MIRALAX) Given 04/24/2017 17 g packet 17 g 16:39 CDT 17 g (1 Packet), Oral, THREE TIMES DAILY, First dose on 04/17/17 at 1700, Until Discontinued Given 04/25/2017 17 g 08:21 CDT Given 04/25/2017 17 g 12:20 CDT pravastatin (PRAVACHOL) tablet 20 mg Given 04/25/2017 20 mg 20 mg, Oral, AT BEDTIME DAILY, First 20:36 CDT dose on 04/17/17 at 2100, Until Discontinued Given 04/26/2017 20 mg 21:06 CDT Given 04/27/2017 20 mg 20:50 CDT sertraline (ZOLOFT) tablet 25 mg Given 04/26/2017 25 mg 25 mg, Oral, DAILY, First dose on Sun 09:03 CDT 04/17/17 at 1445, Until Discontinued Given 04/27/2017 25 mg 08:32 CDT Given 04/28/2017 25 mg 08:16 CDT sodium chloride 0.9 % infusion Given - New 04/19/2017 1,000 mL 1,000 mL, 1,000 mL, Intravenous, ONCE, 1 Bag 09:11 CDT dose, 04/19/17 at 0915, Pre-Op sodium chloride 0.9 % with KCl 20 Given - New 04/21/2017 1,000 mL 75 mL/hr mEq/L infusion Bag 11:34 CDT 1,000 mL, 1,000 mL, Intravenous, at 75 mL/hr, ONCE, 1 dose, Angelica 04/21/17 at 1115 SODIUM CHLORIDE 0.9 % IV SOLP (Cabinet Given - New 04/20/2017 Override) Bag 11:07 CDT NOW, 1 dose, Tue04/20/17 at 1100, Created by [email or web address] traMADol (ULTRAM) tablet 50 mg Given 04/25/2017 50 mg 50 mg, Oral, EVERY 6 HOURS PRN, 12:20 CDT Starting Tue04/17/17 at 1727, Until Tue04/26/17 at 1206, Pain PO Given 04/25/2017 50 mg 20:36 CDT Given 04/26/2017 50 mg 06:15 CDT traZODone (DESYREL) tablet 300 mg Given 04/25/2017 300 mg 300 mg, Oral, AT BEDTIME DAILY, First 20:36 CDT dose on Tue04/17/17 at 2100, Until Discontinued Given 04/26/2017 300 mg 21:06 CDT Given 04/27/2017 300 mg 20:46 CDT in this encounter
--- OUTSIDE RECORDS SUMMARY | 2017-07-13 05:12 | XMS REPORT | Encounter Summary ---
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 Checker Internal Medicine Pertinent radiology reviewed. * Nesha [...] Paged primary for update- waiting on reply. [facility] 1057- primary returned call. No orders at this [...] 100 MG/DL Specimen Performing Laboratory MAIN LAB [address] [place] [address] * POC GLUCOSE (04/28/2017 7:35 AM) Component Value Ref Range Glucose, POC 163 (H) 70 - 100 MG/DL Specimen Performing Laboratory MAIN LAB [address] [place], [place] [id number] * MAGNESIUM (04/28/2017 5:23 AM) Component Value Ref Range Magnesium 2.1 1.6 - 2.6 mg/dL Specimen Performing Laboratory Blood MAIN LAB [address] [place] [address] * BASIC METABOLIC PANEL (04/28/2017 5:23 AM) [...] Pharmacist for questions. Specimen Performing Laboratory Blood [facility] [address] [place] [address] * CBC AND DIFF (04/28/2017 5:23 AM) [...] - 0.20 K/UL Specimen Performing Laboratory Blood [facility] [address] [place] [address] * POC GLUCOSE (04/27/2017 9:33 PM) Component Value Ref Range Glucose, POC 235 (H) 70 - 100 MG/DL Specimen Performing Laboratory [facility] [address] [place] [address] * POC GLUCOSE (04/27/2017 8:48 PM) Component Value Ref Range Glucose, POC 180 (H) 70 - 100 MG/DL Specimen Performing Laboratory [facility] [address] [place] [address] * POC GLUCOSE (04/27/2017 4:47 PM) Component Value Ref Range Glucose, POC 146 (H) 70 - 100 MG/DL Specimen Performing Laboratory [facility] [address] [place] [address] * POC GLUCOSE (04/27/2017 11:54 AM) Component Value Ref Range Glucose, POC 174 (H) 70 - 100 MG/DL Specimen Performing Laboratory MAIN LAB [address] [place] [address] * POC GLUCOSE (04/27/2017 8:30 AM) Component Value Ref Range Glucose, POC 204 (H) 70 - 100 MG/DL Specimen Performing Laboratory MAIN LAB [address] [place] [address] * MAGNESIUM (04/27/2017 4:54 AM) Component Value Ref Range Magnesium 2.2 1.6 - 2.6 mg/dL Specimen Performing Laboratory Blood MAIN LAB [address] [place] [address] * BASIC METABOLIC PANEL (04/27/2017 4:54 AM) [...] questions. Specimen Performing Laboratory Blood MAIN LAB [address] [place] [address] * POC GLUCOSE (04/26/2017 9:01 PM) Component Value Ref Range Glucose, POC 93 70 - 100 MG/DL Specimen Performing Laboratory MAIN LAB [address] [place] [address] * POC GLUCOSE (04/26/2017 4:59 PM) Component Value Ref Range Glucose, POC 120 (H) 70 - 100 MG/DL Specimen Performing Laboratory MAIN LAB [address] [place] [address] * POC GLUCOSE (04/26/2017 11:06 AM) Component Value Ref Range Glucose, POC 110 (H) 70 - 100 MG/DL Specimen Performing Laboratory MAIN LAB [address] [place] [address] * POC GLUCOSE (04/26/2017 7:20 AM) Component Value Ref Range Glucose, POC 121 (H) 70 - 100 MG/DL Specimen Performing Laboratory MAIN LAB [address] [place] [address] * MAGNESIUM (04/26/2017 5:55 AM) Component Value Ref Range Magnesium 2.2 1.6 - 2.6 mg/dL Specimen Performing Laboratory Blood MAIN LAB [address] [place] [address] * BASIC METABOLIC PANEL (04/26/2017 5:55 AM) [...] Specimen Performing Laboratory Blood MAIN LAB [address] [place] [address] * CBC AND DIFF (04/26/2017 5:55 AM) [...] - 0.20 K/UL Specimen Performing Laboratory Blood [facility] [address] [place], [place] [phone] * POC GLUCOSE (04/25/2017 8:45 PM) Component Value Ref Range Glucose, POC 159 (H) 70 - 100 MG/DL Specimen Performing Laboratory [facility] [address] [place] [address] 359[address] * POC GLUCOSE (04/25/2017 4:58 PM) Component Value Ref Range Glucose, POC 112 (H) 70 - 100 MG/DL Specimen Performing Laboratory [facility] [address] [place] [address] * POC GLUCOSE (04/25/2017 11:25 AM) Component Value Ref Range Glucose, POC 117 (H) 70 - 100 MG/DL Specimen Performing Laboratory [facility] [address] [place] [address] * POC GLUCOSE (04/25/2017 8:06 AM) Component Value Ref Range Glucose, POC 128 (H) 70 - 100 MG/DL Specimen Performing Laboratory [facility] [address] [place], [place] [phone] * MAGNESIUM (04/25/2017 4:50 AM) Component Value Ref Range Magnesium 2.2 1.6 - 2.6 mg/dL Specimen Performing Laboratory Blood [facility] [address] [place] [address] * BASIC METABOLIC PANEL (04/25/2017 4:50 AM) [...] Pharmacist for questions. Specimen Performing Laboratory Blood [facility] [address] [place] [address] * CBC AND DIFF (04/25/2017 4:50 AM) [...] - 0.20 K/UL Specimen Performing Laboratory Blood [facility] [address] [place] [address] * POC GLUCOSE (04/24/2017 9:19 PM) Component Value Ref Range Glucose, POC 140 (H) 70 - 100 MG/DL Specimen Performing Laboratory [facility] [address] [place] [address] 66[address] * POC GLUCOSE (04/24/2017 8:36 PM) Component Value Ref Range Glucose, POC 134 (H) 70 - 100 MG/DL Specimen Performing Laboratory [facility] [address] [place] [address] * POC GLUCOSE (04/24/2017 6:18 PM) Component Value Ref Range Glucose, POC 125 (H) 70 - 100 MG/DL Specimen Performing Laboratory [facility] [address] [place] [address] 419[address] * POC GLUCOSE (04/24/2017 11:32 AM) Component Value Ref Range Glucose, POC 118 (H) 70 - 100 MG/DL Specimen Performing Laboratory MAIN LAB [address] [place] [address] 11932 * POC GLUCOSE (04/24/2017 7:11 AM) Component Value Ref Range Glucose, POC 89 70 - 100 MG/DL Specimen Performing Laboratory MAIN LAB [address] [place] [address] * MAGNESIUM (04/24/2017 5:48 AM) Component Value Ref Range Magnesium 2.1 1.6 - 2.6 mg/dL Specimen Performing Laboratory Blood MAIN LAB [address] [place] [address] * BASIC METABOLIC PANEL (04/24/2017 5:48 AM) [...] Specimen Performing Laboratory Blood MAIN LAB [address] [place] [address] * CBC AND DIFF (04/24/2017 5:48 AM) [...] - 0.20 K/UL Specimen Performing Laboratory Blood [facility] [address] [place], [place] [id number] * POC GLUCOSE (04/23/2017 9:23 PM) Component Value Ref Range Glucose, POC 158 (H) 70 - 100 MG/DL Specimen Performing Laboratory [facility] [address] [place] [address] * POC GLUCOSE (04/23/2017 4:59 PM) Component Value Ref Range Glucose, POC 152 (H) 70 - 100 MG/DL Specimen Performing Laboratory [facility] [address] [place], [place] [id number] * POC GLUCOSE (04/23/2017 12:34 PM) Component Value Ref Range Glucose, POC 198 (H) 70 - 100 MG/DL Specimen Performing Laboratory [facility] [address] [place], [place] [id number] * POC GLUCOSE (04/23/2017 8:02 AM) Component Value Ref Range Glucose, POC 137 (H) 70 - 100 MG/DL Specimen Performing Laboratory [facility] [address] [place], [place] [id number] * MAGNESIUM (04/23/2017 6:20 AM) Component Value Ref Range Magnesium 2.1 1.6 - 2.6 mg/dL Specimen Performing Laboratory Blood [facility] [address] [place], [place] [phone] * BASIC METABOLIC PANEL (04/23/2017 6:20 AM) [...] questions. Specimen Performing Laboratory Blood MAIN LAB [address] [place] [address] * CBC AND DIFF (04/23/2017 6:20 AM) [...] K/UL Specimen Performing Laboratory Blood MAIN LAB [address] [place] [address] * POC GLUCOSE (04/22/2017 10:20 PM) Component Value Ref Range Glucose, POC 127 (H) 70 - 100 MG/DL Specimen Performing Laboratory MAIN LAB [address] [place] [address] 116[address] * POC GLUCOSE (04/22/2017 5:55 PM) Component Value Ref Range Glucose, POC 164 (H) 70 - 100 MG/DL Specimen Performing Laboratory MAIN LAB [address] [place] [address] * 2-D + DOPPLER ECHOCARDIOGRAM (04/22/2017 3:19 PM) Component Value Ref Range BSA 2.68 m2 ECHO EF 65 % Referring Provider CV ECHO PV FACILITY SPECIALIST Interp Only [employer] Height (in) in Weight Lbs lbs Rt [...] a peak gradient of mmHg AV index (creek) AV mean gradient post mmHg stress AV [...] 100 MG/DL Specimen Performing Laboratory MAIN LAB [address] [place] [address] * POC GLUCOSE (04/22/2017 7:43 AM) Component Value Ref Range Glucose, POC 150 (H) 70 - 100 MG/DL Specimen Performing Laboratory MAIN LAB [address] [place] [address] 17[address] * MAGNESIUM (04/22/2017 4:26 AM) Component Value Ref Range Magnesium 2.0 1.6 - 2.6 mg/dL Specimen Performing Laboratory Blood MAIN LAB [address] [place], [place] [phone] * BASIC METABOLIC PANEL (04/22/2017 4:26 AM) [...] questions. Specimen Performing Laboratory Blood MAIN LAB [address] [place] [address] * CBC AND DIFF (04/22/2017 4:26 AM) [...] - 0.20 K/UL Specimen Performing Laboratory Blood [facility] [address] [place] [address] 16[address] * POC GLUCOSE (04/21/2017 10:47 PM) Component Value Ref Range Glucose, POC 113 (H) 70 - 100 MG/DL Specimen Performing Laboratory [facility] [address] [place] [address] * POC GLUCOSE (04/21/2017 9:08 PM) Component Value Ref Range Glucose, POC 195 (H) 70 - 100 MG/DL Specimen Performing Laboratory [facility] [address] [place] [address] 26659 * POC GLUCOSE (04/21/2017 5:37 PM) Component Value Ref Range Glucose, POC 153 (H) 70 - 100 MG/DL Specimen Performing Laboratory [facility] [address] [place] [address] 27065 * POC GLUCOSE (04/21/2017 12:42 PM) Component Value Ref Range Glucose, POC 118 (H) 70 - 100 MG/DL Specimen Performing Laboratory [facility] [address] [place] [address] 35068 * POC GLUCOSE (04/21/2017 8:02 AM) Component Value Ref Range Glucose, POC 122 (H) 70 - 100 MG/DL Specimen Performing Laboratory [facility] [address] [place] [address] 47078 * MAGNESIUM (04/21/2017 6:47 AM) Component Value Ref Range Magnesium 2.0 1.6 - 2.6 mg/dL Specimen Performing Laboratory Blood [facility] [address] [place] [address] * BASIC METABOLIC PANEL (04/21/2017 6:47 AM) [...] Specimen Performing Laboratory Blood MAIN LAB [address] [place] [address] * CBC AND DIFF (04/21/2017 6:47 AM) [...] Specimen Performing Laboratory Blood MAIN LAB [address] [place] [address] * POC GLUCOSE (04/20/2017 9:40 PM) Component Value Ref Range Glucose, POC 109 (H) 70 - 100 MG/DL Specimen Performing Laboratory [facility] [address] [place] [address] * POC GLUCOSE (04/20/2017 6:01 PM) Component Value Ref Range Glucose, POC 130 (H) 70 - 100 MG/DL Specimen Performing Laboratory [facility] MAIN [facility] [address] [place] [address] * MRI HEAD WO/W CONTRAST (04/20/2017 4:40 [...] MG/DL Specimen Performing Laboratory MAIN LAB [address] [place] [address] * SHOULDER RIGHT 1V (04/20/2017 11:25 AM) [...] foreign body is identified. Finalized by Ariel Peralat M.D. on 04/20/2017 12:25 PM. Dictated by Ariel Peralta M.D. on 04/20/2017 12:17 PM. * POC IONIZED CALCIUM (04/20/2017 11:18 AM) Component Value Ref Range Ionized Calcium-POC 1.21 1.0 - 1.3 MMOL/L Specimen Performing Laboratory [facility] [address] [place] [address] * POC SODIUM (04/20/2017 11:18 AM) Component Value Ref Range Sodium-POC 134 (L) 137 - 147 MMOL/L Specimen Performing Laboratory [facility] [address] [place], [place] [id number] * POC POTASSIUM (04/20/2017 11:18 AM) Component Value Ref Range Potassium-POC 3.5 3.5 - 5.1 MMOL/L Specimen Performing Laboratory [facility] [address] [place] [address] * POC HEMATOCRIT (04/20/2017 11:18 AM) Component Value Ref Range Hemoglobin POC 15.6 (H) 12.0 - 15.0 GM/DL Hematocrit POC 46.0 (H) 36 - 45 % Specimen Performing Laboratory [facility] [address] [place] [address] * POC BLOOD GAS ARTERIAL (04/20/2017 11:18 AM) Component Value Ref Range PH-ART-POC 7.42 7.35 - 7.45 UCX2-BME-PDM 55 (H) 35 - 45 MMHG PO2-ART-POC 54 (L) 80 - 100 MMHG Base Ex-ART-POC 11.0 MMOL/L O2 Sat-ART-POC 87.0 (L) 95 - 99 % Lzjbzphecwi-MKS-ITX 35.4 (H) 21 - 28 MMOL/L Specimen Performing Laboratory MAIN LAB [address] [place], [place] [phone] * POC GLUCOSE (04/20/2017 10:20 AM) Component Value Ref Range Glucose, POC 165 (H) 70 - 100 MG/DL Specimen Performing Laboratory [facility] [address] [place], [place] [phone] * POC GLUCOSE (04/20/2017 8:14 AM) Component Value Ref Range Glucose, POC 108 (H) 70 - 100 MG/DL Specimen Performing Laboratory [facility] [address] [place], [place] [phone] * MAGNESIUM (04/20/2017 5:04 AM) Component Value Ref Range Magnesium 2.1 1.6 - 2.6 mg/dL Specimen Performing Laboratory Blood MAIN LAB [address] [place] [address] * BASIC METABOLIC PANEL (04/20/2017 5:04 AM) [...] Specimen Performing Laboratory Blood MAIN LAB [address] [place] [address] * CBC AND DIFF (04/20/2017 5:04 AM) [...] - 0.20 K/UL Specimen Performing Laboratory Blood [facility] [address] [place] [address] * POC GLUCOSE (04/19/2017 9:24 PM) Component Value Ref Range Glucose, POC 154 (H) 70 - 100 MG/DL Specimen [place] [address] * POC GLUCOSE (04/19/2017 5:46 PM) Component Value Ref Range Glucose, POC 135 (H) 70 - 100 MG/DL Specimen Performing Laboratory [facility] [address] [place] [address] * POC GLUCOSE (04/19/2017 1:36 PM) Component Value Ref Range Glucose, POC 171 (H) 70 - 100 MG/DL Specimen [place] [address] * POC GLUCOSE (04/19/2017 11:07 AM) Component Value Ref Range Glucose, POC 132 (H) 70 - 100 MG/DL Specimen [place] [address] * SURGICAL PATHOLOGY (04/19/2017 11:07 AM) Component Value Ref Range PATHOLOGY REPORT [email or web address] Gwendolyn Lopez MD, PhD, Director of Anatomic Pathology Department of Pathology and Laboratory Medicine [address] [place], [place] [id number] Surgical Pathology Office: [phone] SURGICAL PATHOLOGY REPORT NAME: YOMAIRA SHERIFF SURG PATH #: [id number] MR #: [id number] SPECIMEN CLASS: SR BILLING #: [id number] ALT ID #: LOCATION: [facility] DATE OF PROCEDURE: 04/19/2017 AGE: [...] in this report. +++Electronically Signed Out By+++ [facility]/04/19/2017 Interpreted by: Jarett Basilio MD, Attending Physician [...] is entirely submitted in cassette A1. (jrz) j/04/19/2017 Aric Solis D.O. Resident Specimen Performing Laboratory [facility] RESULTS * EGD REPORT (04/19/2017 8:48 AM) Component Value Ref Range Provation Report Patient Name: Wilber Burnette Procedure Date: 04/19/2017 8:48 AM [facility]: [id number] Date of : 1965 Gender: Female Attending Physician: Effie Morel MD Procedure: Upper GI endoscopy Indications: Ep igastric abdominal pain Providers: Effie Morel MD (Doctor), Hussein Cavanaugh MD (Fellow), Jalyn Reynolds, RN (Nurse), Kay Degroot, RN (Nurse), Travis Mccann, Edge Burnisher (Edge Burnisher) Referring Physician: Darien Lemon MD Medications: Pr [...] 3 seconds Procedure Code(s): --- Professional --- 31603, Esophagogastroduodenoscopy, flexible, transoral; with biopsy, single or multiple Diagnosis Code(s): --- Professional --- Z98.84, Bariatric surgery status K31.9, Disease of stomach and duodenum, unspecified T18.2XXA, Foreign body in stomach, initial encounter R10.13, Epigastric pain CPT copyright 2015 [employer] [place] [employer]. All rights reserved. The codes documented in this report are preliminary and upon sales and marketing analyst review may be revised to meet current [...] Specimen Performing Laboratory [facility] MAIN [facility] [address] [place] [address] * MAGNESIUM (04/19/2017 4:59 AM) Component Value Ref Range Magnesium 1.8 1.6 - 2.6 mg/dL Specimen Performing Laboratory Blood [facility] MAIN [facility] [address] [place] [address] * BASIC METABOLIC PANEL (04/19/2017 4:59 AM) [...] Performing Laboratory Blood [facility]IN [facility] [address] [address] * CBC AND DIFF (04/19/2017 4:59 AM) [...] - 0.20 K/UL Specimen Performing Laboratory Blood [facility] [address] [place] [address] * POC GLUCOSE (04/18/2017 9:36 PM) Component Value Ref Range Glucose, POC 136 (H) 70 - 100 MG/DL Specimen Performing Laboratory [facility] [address] [place], [place] [phone] * POC GLUCOSE (04/18/2017 6:34 PM) Component Value Ref Range Glucose, POC 110 (H) 70 - 100 MG/DL Specimen Performing Laboratory [facility] [address] [place] [address] * POC GLUCOSE (04/18/2017 12:56 PM) Component Value Ref Range Glucose, POC 128 (H) 70 - 100 MG/DL Specimen Performing Laboratory [facility] [address] [place] [address] * POC GLUCOSE (04/18/2017 8:56 AM) Component Value Ref Range Glucose, POC 150 (H) 70 - 100 MG/DL Specimen Performing Laboratory [facility] [address] [place] [address] * MAGNESIUM (04/18/2017 7:31 AM) Component Value Ref Range Magnesium 1.9 1.6 - 2.6 mg/dL Specimen Performing Laboratory Blood MAIN LAB [address] [place] [address] * BASIC METABOLIC PANEL (04/18/2017 7:31 AM) [...] Specimen Performing Laboratory Blood MAIN LAB [address] [place] [address] * CBC AND DIFF (04/18/2017 7:31 AM) [...] Specimen Performing Laboratory Blood MAIN LAB [address] [place] [address] * HEMOGLOBIN A1C (04/18/2017 7:31 AM) Component Value Ref Range Hemoglobin A1C 5.9 4.0 - 6.0 % Comment: The ADA recommends that most patients with type 1 and type 2 diabetes maintain an A1c level <7%. Specimen Performing Laboratory Blood [facility] [address] [place] [address] * POC GLUCOSE (04/17/2017 9:23 PM) Component Value Ref Range Glucose, POC 119 (H) 70 - 100 MG/DL Specimen Performing Laboratory [facility] [address] [place] [address] * POC GLUCOSE (04/17/2017 5:52 PM) Component Value Ref Range Glucose, POC 105 (H) 70 - 100 MG/DL Specimen Performing Laboratory [facility] [address] [place] [address] * CT ABD/PELV WO CONTRAST (04/17/2017 10:01 [...] Specimen Performing Laboratory U[facility] MAIN LAB [address] [place] [address] Organism Antibiotic Method Susceptibility >100,000 organisms/ml Ampicillin [...] Oxalate Crystals FEW Specimen Performing Laboratory Urine [facility] [address] [place] [address] * URINALYSIS DIPSTICK (04/17/2017 9:41 AM) Component Value Ref Range Color,UA JENNY Turbidity,UA 2+ (A) CLEAR-CLEAR Specific [place]-Urine 1.029 1.003 - 1.035 pH,UA 5.0 5.0 [...] result. Specimen Performing Laboratory Urine MAIN LAB [address] [place], [place] [id number] * POC CREATININE, RAD (04/17/2017 9:09 AM) Component Value Ref Range Creatinine, POC 0.6 0.4 - 1.00 MG/DL Specimen Performing Laboratory [facility] [address] [place] [address] * POC LACTATE (04/17/2017 9:08 AM) Component Value Ref Range LACTIC ACID POC 1.1 0.5 - 2.0 MMOL/L Specimen Performing Laboratory [facility] [address] [place], [place] [phone] * PTT (APTT) (04/17/2017 9:07 AM) Component Value Ref Range APTT 28.8 24.0 - 40.0 SEC Specimen Performing Laboratory Blood [facility] [address] [place], [place] [phone] * PROTIME INR (PT) (04/17/2017 9:07 AM) Component Value Ref Range INR 1.0 0.8 - 1.2 Specimen Performing Laboratory Blood [facility] [address] [place], [place] [id number] * LIPASE (04/17/2017 9:07 AM) Component Value Ref Range Lipase 10 (L) 11 - 82 U/L Specimen Performing Laboratory Blood [facility] [address] [place], [place] [id number] * COMPREHENSIVE METABOLIC PANEL (04/17/2017 9:07 AM) [...] Performing Laboratory Blood [facility] [address] [place] [address] * CBC AND DIFF (04/17/2017 9:07 AM) [...] Performing Laboratory Blood [facility] [address] [place] [address] in this encounter Visit Diagnoses Diagnosis Dysphagia Dysphagia, unspecified in this encounter Admitting Diagnoses Diagnosis UTI (urinary tract infection) Generalized abdominal pain - Abdominal pain Dysphagia Dysphagia, unspecified in this encounter
--- OUTSIDE RECORDS SUMMARY | 2017-07-13 05:12 | XMS REPORT | Encounter Summary ---
Author Author [facility] Organization [facility] Address Unknown Phone Unavailable Care Team Providers Care Program Engineer Name Role Phone PCP Unavailable Reason for Visit * Auth/Cert Status Reason Specialty Diagnoses / Referred By Referred To Procedures Contact Contact Diagnoses UTI (urinary tract infection) Abdominal pain Encounter Details Date Type Department Care Team Description 04/19/2017 Anesthesia Gastrointenstinal Benito Nicolas, LUCY Endoscopy [address] [place] [address] Social History Tobacco Use Types Packs/Day Years Used Date Current Every Day Smoker Sex Assigned at Date Recorded Not on file as of this encounter Functional Status Functional Status Response Date of Assessment Does the patient have a hearing impairment: No 04/17/2017 as of this encounter Plan of Treatment Not on fileas of this encounter Visit Diagnoses Not on filein this encounter Administered Medications Medication Order MAR Action Action Date Dose Rate Site lidocaine (PF) injection Given 04/19/2017 10 mg INTRA-PROCEDURE MED, Starting e 04/19/17 09:17 CDT at 0917, Until 04/19/17 at 0935, Anesthesia Intra-op propofol (DIPRIVAN) injection Given 04/19/2017 30 mg INTRA-PROCEDURE MED, Starting 04/19/17 09:17 CDT at 0917, Until 04/19/17 at 0935, Anesthesia Intra-op Given 04/19/2017 20 mg 09:21 CDT Given 04/19/2017 30 mg 09:24 CDT sodium chloride 0.9 % infusion Given - New 04/19/2017 INTRA-PROCEDURE MED(CONT), Starting Tue Bag 08:53 CDT 04/19/17 at 0853, Until 04/19/17 at 0935, Anesthesia Intra-op in this encounter
[2017-07-13 06:39] LABS: BASOPHILS % (AUTO) 0 % (0-10); EOSINOPHILS # (AUTO) 0.1 10^3/uL (0.0-0.3); EOSINOPHILS % (AUTO) 1 % (0-10); LYMPHOCYTES # (AUTO) 1.4 X 10^3 (1.0-4.0); LYMPHOCYTES % (AUTO) 17 % (12-44); MEAN CORPUSCULAR HEMOGLOBIN 32 PG (25-34); MEAN CORPUSCULAR HGB CONC 32 G/DL (32-36); MEAN CORPUSCULAR VOLUME 99 FL (80-99); MEAN PLATELET VOLUME 9.6 FL (7.4-10.4); MONOCYTES # (AUTO) 0.8 X 10^3 (0.0-1.0); MONOCYTES % (AUTO) 9 % (0-12); NEUTROPHILS # (AUTO) 6.1 X 10^3 (1.8-7.8); NEUTROPHILS % (AUTO) 73 % (42-75); PLATELET COUNT 169 10^3/uL (130-400); RED BLOOD COUNT 4.11 10^6/uL (4.35-5.85); RED CELL DISTRIBUTION WIDTH 13.3 % (10.0-14.5); WHITE BLOOD COUNT 8.4 10^3/uL (4.3-11.0)
[2017-07-13 06:47] LABS: ALANINE AMINOTRANSFERASE 14 U/L (0-55); ALBUMIN 3.1 GM/DL (3.2-4.5); ANION GAP 9 MMOL/L (5-14); ASPARTATE AMINO TRANSFERASE 12 U/L (5-34); BILIRUBIN,TOTAL 0.8 MG/DL (0.1-1.0); BLOOD UREA NITROGEN 4 MG/DL (7-18); BUN/CREATININE RATIO 7; CALCIUM 8.3 MG/DL (8.5-10.1); CARBON DIOXIDE 23 MMOL/L (21-32); CHLORIDE 107 MMOL/L (98-107); CREATININE SERUM 0.57 MG/DL (0.60-1.30); GFR ESTIMATED > 60; GLUCOSE 119 MG/DL (70-105); POTASSIUM 3.7 MMOL/L (3.6-5.0); SODIUM 139 MMOL/L (135-145); TOTAL PROTEIN 5.5 GM/DL (6.4-8.2)
[2017-07-13 07:25] VITALS: BP 131/78
--- NOTE | 2017-07-13 09:49 | Consultation ---
History of Present Illness History of Present Illness Patient Consulted On(mandie/time) 07/13/17 09:43 Time Seen by Provider: 09:13 History of Present Illness Surgery asked to consult regarding abdominal pain and incarcerated ventral hernia. HPI: Pt presented to the ER last night with complaint of right upper quadrant abdominal pain for the last 2-3 days. States that she has multiple holes in her belly and has problems with hernias. She states that she's had 7 surgeries in the past. Does report vomiting one time but then states that she is having bowel movements daily. She told the ER physician that she really wanted to go somewhere else but then stated that she would stay. She was apparently supposed to have surgery in April related to her abdominal problems but states that she has seizures and [facility] didn't want to do the surgery until after evaluation by her primary care doctor. She reports missing 3 appointments because she didn't have a ride to her primary care doctor Dr. Perry. She was subsequently fired from that practice for missing multiple appointments and was set up with [facility] for an appointment. She was not able to get to that appointment due to transportation concerns and has a new appointment scheduled for later this week or next week. She subsequently found out that [facility] has transportation available and so she is going to follow up with them. Timing/Duration: 2-3 Days Severity/Quality: Moderate Location: RUQ Radiation: No Radiation Activities at Onset: None Modifying Factors: Worsens With Movement, Improves With Resting Associated Symptoms: No Back Pain, No Fever/Chills, Nausea/Vomiting, No Shortness of Air, Swelling/Mass in Abdomen, No Weakness Allergies and Home Medications Allergies Coded Allergies: latex (Verified Allergy, Intermediate, RASH, ITCHING, 03/02/11) vancomycin (Verified Allergy, Intermediate, HIVES, 03/02/11) iodine (Verified Allergy, Mild, "ILL", 03/02/11) lorazepam (Verified Allergy, Unknown, 07/12/17) phenobarbital (Verified Allergy, Unknown, 03/09/06) phenytoin (Verified Allergy, Unknown, 07/12/17) Home Medications Escitalopram Oxalate 20 Mg Tablet, 30 MG PO DAILY, (Reported) Hydrocodone Bit/Acetaminophen 1 Tab Tab, 1-2 EA PO Q4HR PRN, (Reported) Hydroxyzine Pamoate 25 Mg Capsule, 25 MG PO NEEDED, (Reported) Ibuprofen 200 Mg Tablet, 800 MG PO Q8H PRN, (Reported) Tramadol Hcl 50 Mg Tablet, 50 MG PO Q4H PRN for PAIN, #6 Ref 0 Prescribed by: SCOUT CALIXTO on 12/23/13 0017 Trazodone Hcl 150 Mg Tablet, 150 MG PO HS, (Reported) Ziprasidone 80 Mg Cap, 1 PO DAILY, (Reported) Past Svvpisr-Cvevgj-Yytxcx Hx Patient Social History Alcohol Use: Denies Use Recreational Drug Use: No Smoking Status: Current Everyday Smoker Cigarettes Per Day: 5 Type Used: Cigarettes (Used to smoke 2 packs a day, has recently cut back to 5 cigarettes a day) Recent Foreign Travel: No Contact w/Someone Who Travel: No Recent Infectious Disease Expo: No Recent Hopitalizations: Yes (HERNIA X 5, C-SECTIONS) Physical Abuse Screen: No Sexual Abuse: No Surgeries History of Surgeries: Yes (LAPAROTOMY, C-SECTIONS) Respiratory History of Respiratory Disorde: No Respiratory Disorders: Sleep Apnea, COPD Cardiovascular History of Cardiac Disorders: Yes Cardiac Disorders: Chronic Edema/Swelling Neurological History of Neurological Disord: Yes Neurological Disorders: Seizure Disorder Reproductive System Hx Reproductive Disorders: No Genitourinary History of Genitourinary Disor: No Gastrointestinal History of Gastrointestinal Di: Yes (VENTRAL HERNIA) Musculoskeletal History of Musculoskeletal Dis: No Endocrine History of Endocrine Disorders: Yes Endocrine Disorders: Diabetes, Non-Insulin dep HEENT History of HEENT Disorders: No Cancer History of Cancer: No Psychosocial History of Psychiatric Problem: Yes Behavioral Health Disorders: Anxiety, Depression Integumentary History of Skin or Integumenta: No Blood Transfusions History of Blood Disorders: No Reviewed Nursing Assessment Reviewed/Agree w Nursing PMH: Yes Family Medical History Significant Family History: Cancer (Brother had Non-Hodgkins Lymphoma) Family Medial History: Alzheimer's disease 19 MOTHER Arthritis 19 MOTHER Asthma 19 FATHER 19 MOTHER Colon cancer 19 MOTHER Completed stroke 19 FATHER 19 MOTHER Deafness or hearing loss Dementia 19 MOTHER Diabetes mellitus 19 FATHER Glaucoma 19 FATHER 19 MOTHER Hypertension 19 FATHER 19 MOTHER Myocardial infarction 19 FATHER 19 MOTHER Respiratory disorder 19 MOTHER Review of Systems-General Constitutional: No chills, No fever, weakness, weight loss (lost 200lbs after gastric sleeve, but gained 60 lbs back - she believes is water weight) EENTM: vision loss, No ear discharge, No ear pain, No epistaxis, No throat swelling Respiratory: No cough, dyspnea on exertion, No hemoptysis, No stridor Cardiovascular: No chest pain, edema, No palpitations Gastrointestinal: abdominal pain, constipation, No hematemesis, No jaundice, No melena, nausea, vomiting Genitourinary: No dysuria, No frequency, No hematuria : No Musculoskeletal: back pain, joint pain, muscle stiffness Skin: change in color, No change in hair/nails, dryness, other (chronic changes in lower legs) Psychiatric/Neurological: Anxiety, Depressed Other denies abnormal bleeding or bruising, denies heat or cold intolerance Physical Exam-General Problems Physical Exam Vital Signs Vital Sign - Last 12Hours 07/12/17 07/12/17 07/12/17 19:40 23:29 23:40 Temp 97.5 Pulse 96 Resp 24 B/P (MAP) 132/72 Pulse Ox 99 O2 Delivery Nasal Cannula O2 Flow Rate 2.00 Capillary Refill : Less Than 3 Seconds General Appearance: no apparent distress, obese (super morbidly obese) Eyes: Bilateral Eye PERRL, Bilateral Eye EOMI HEENT: pharynx normal, No scleral icterus (R), No scleral icterus (L), No pale conjunctivae (R), No pale conjunctivae (L) Neck: full range of motion, supple, No tender midline, No thyromegaly Respiratory: chest non-tender, lungs clear, normal breath sounds, no respiratory distress, no accessory muscle use Cardiovascular: regular rate, rhythm, no murmur Gastrointestinal: soft, no organomegaly, no pulsatile mass, tenderness ( diffusely), hernia (giant hernia, with intestine down into her pannus), other ( abdominal wall is not red, no signs of infection or strangulation) Rectal: deferred Extremities: no calf tenderness, slow capillary refill, swelling, other (Pt has large amounts of edema, along with chronic venous stasis changes in both legs) Neurologic/Psychiatric: food aide II-XII nml as tested, no motor/sensory deficits, alert, normal mood/affect, oriented x 3 Skin: normal color, warm/dry Lymphatic: no adenopathy Data Review Labs Laboratory Tests 07/12/17 20:00: White Blood Count 9.8, Red Blood Count 4.52, Hemoglobin 14.4, Hematocrit 44, Mean Corpuscular Volume 97, Mean Corpuscular Hemoglobin 32, Mean Corpuscular Hemoglobin Concent 33, Red Cell Distribution Width 13.3, Platelet Count 152, Mean Platelet Volume 9.5, Neutrophils (%) (Auto) 77H, Lymphocytes (%) (Auto) 14 , Monocytes (%) (Auto) 8, Eosinophils (%) (Auto) 1, Basophils (%) (Auto) 0, Neutrophils # (Auto) 7.5, Lymphocytes # (Auto) 1.4, Monocytes # (Auto) 0.8, Eosinophils # (Auto) 0.1, Basophils # (Auto) 0.0, Sodium Level 140, Potassium Level 3.8, Chloride Level 106, Carbon Dioxide Level 26, Anion Gap 8, Blood Urea Nitrogen 4L, Creatinine 0.60, Estimat Glomerular Filtration Rate > 60, BUN/ Creatinine Ratio 7, Glucose Level 106H, Calcium Level 8.6, Magnesium Level 1.7L , Total Bilirubin 0.6, Aspartate Amino Transf (AST/SGOT) 13, Alanine Aminotransferase (ALT/SGPT) 15, Alkaline Phosphatase 90, Total Protein 5.8L, Albumin 3.3 07/12/17 22:20: Lactic Acid Level 0.85 07/13/17 06:07: White Blood Count 8.4, Red Blood Count 4.11L, Hemoglobin 13.1, Hematocrit 41, Mean Corpuscular Volume 99, Mean Corpuscular Hemoglobin 32, Mean Corpuscular Hemoglobin Concent 32, Red Cell Distribution Width 13.3, Platelet Count 169, Mean Platelet Volume 9.6, Neutrophils (%) (Auto) 73, Lymphocytes (%) (Auto) 17, Monocytes (%) (Auto) 9, Eosinophils (%) (Auto) 1, Basophils (%) (Auto) 0, Neutrophils # (Auto) 6.1, Lymphocytes # (Auto) 1.4, Monocytes # (Auto) 0.8, Eosinophils # (Auto) 0.1, Basophils # (Auto) 0.0, Sodium Level 139, Potassium Level 3.7, Chloride Level 107, Carbon Dioxide Level 23, Anion Gap 9, Blood Urea Nitrogen 4L, Creatinine 0.57L, Estimat Glomerular Filtration Rate > 60, BUN/ Creatinine Ratio 7, Glucose Level 119H, Calcium Level 8.3L, Total Bilirubin 0.8 , Aspartate Amino Transf (AST/SGOT) 12, Alanine Aminotransferase (ALT/SGPT) 14, Alkaline Phosphatase 79, Total Protein 5.5L, Albumin 3.1L 07/13/17 06:32: Glucometer 123H Assessment/Plan Assessment/Plan Assessment/Plan Incarcerated Incisional/Ventral Hernia Super Morbidly obese COPD Sleep Apnea Tobacco Abuse I spoke with pt and her family in detail regarding her condition. She has a very complex incarcerated ventral hernia. This is not a case that should be done at this hospital; it requires Tertiary care, probably a team approach. It is very important that she keep her appointment with [facility] and then subsequently at ; she must inform her doctors if she cannot make an appointment, so that she shows she is interested/active in her care. There is a high chance that this hernia will continue to cause problems and could eventually lead strangulation and that would be a life threatening situation. She must stop smoking and should actively continue to try and lose weight, doing both of these will hopefully make her hernia repair a little easier. All questions answered to their satisfaction. Pt can be discharged per her primary care; no surgery needs to be done at this time. She was admitted mainly to get IV hydration, pain control and make sure she was not getting sicker. Her WBC remains within normal limits. Thank you for this consult, will sign off and can resee as necessary. I do not need to see her in my clinic, because her definitive care needs to be at a Tertiary center. Clinical Quality Measures DVT/VTE Risk/Contraindication: Risk Factor Score Per Nursin RFS Level Per Nursing on Admit: 4+=Very High JOSEF CARMONA DO Jul 13, 2017 09:49
[2017-07-13 10:35] LABS: BILIRUBIN,URINE NEGATIVE (NEGATIVE); KETONES,URINE NEGATIVE (NEGATIVE); LEUKOCYTE ESTERASE ,URINE NEGATIVE (NEGATIVE); NITRITE,URINE POSITIVE (NEGATIVE); PH,URINE 6.5 (5-9); PROTEIN,URINE NEGATIVE (NEGATIVE); UROBILINOGEN,URINE 8 MG/DL (NORMAL)
[2017-07-13 10:42] LABS: WBC,URINE RARE /HPF
[2017-07-13] MEDS ORDERED: TRAZ150T72 PO (10:51)
[2017-07-13] MEDS ORDERED: PRAV20TA3 PO (10:51)
[2017-07-13] MEDS ORDERED: OMEP20CA12 PO (10:51)
[2017-07-13] MEDS ORDERED: LISI-552 PO (10:51)
[2017-07-13] MEDS ORDERED: ONDA8TAB13 PO (10:51)
[2017-07-13] MEDS ORDERED: RT-ALBUINH INH (10:51)
[2017-07-13] MEDS ORDERED: ALBU2.5V4 NEB (10:51)
[2017-07-13] MEDS ORDERED: MECL-106 PO (10:51)
[2017-07-13] MEDS ORDERED: ARIP5TAB20 PO (10:51)
[2017-07-13] MEDS ORDERED: LEVE500T6 PO (10:51)
[2017-07-13] MEDS ORDERED: FURO40TA4 PO (10:51)
[2017-07-13] MEDS ORDERED: HYDR-3781 PO (10:53)
[2017-07-13] MEDS ORDERED: SERT50TA9 PO (10:53)
--- NOTE | 2017-07-13 11:17 | Discharge Instructions ---
Discharge [facility] Patient Instructions Goal/Follow Up Appt: Establish care on 08/10 at [address] Yoo, transportation will pick you up at 1:45 pm. Return to The Hospital For: Inability to keep down liquids, abdominal pain with no bowel movements Activity & Diet Discharge Diet: ADA Diet Activity as Tolerated: Yes Orders-Post D/C & Referrals Pneu Vac Indicated: Yes Copy Copies To 1: NORMA YOO MD, BETHANY N MD Jul 13, 2017 11:17 am
[2017-07-13 12:00] VITALS: BP 102/70
--- NOTE | 2017-07-13 21:50 | Short Stay Summary ---
HPI History of Present Illness: 51 yo female presented to ER due to severe abdominal pain. She has history of 7 or more abdominal surgeries with multiple hernia repairs and is planned to have more done at but is needing primary care provider first. She has planned to establish care at [facility], was fired from previous physician due to no shows and has not had medication in some time. Date seen by provider: Jul 13, 2017 Time Seen by Provider: 10:30 Attending Physician Lolly Rock MD PCP [facility] Consult Date of Admission Jul 12, 2017 at 10:56 pm Home Medications Home Medications Reviewed patient Home Medication Reconciliation Form Allergies Coded Allergies: latex (Verified Allergy, Intermediate, RASH, ITCHING, 03/02/11) vancomycin (Verified Allergy, Intermediate, HIVES, 03/02/11) iodine (Verified Allergy, Mild, "ILL", 03/02/11) lorazepam (Verified Allergy, Unknown, 07/12/17) phenobarbital (Verified Allergy, Unknown, 03/09/06) phenytoin (Verified Allergy, Unknown, 07/12/17) KCG-Cebfth-Uipetc Hx Patient Social History Alcohol Use: Denies Use Recreational Drug Use: No Smoking Status: Current Everyday Smoker Cigaretts per day: 5 Type Used: Cigarettes (Used to smoke 2 packs a day, has recently cut back to 5 cigarettes a day) Recent Foreign Travel: No Contact w/other who traveled: No Recent Hopitalizations: Yes (HERNIA X 5, C-SECTIONS) Recent Infectious Disease Expo: No Physical Abuse Screen: No Sexual Abuse: No Past Medical History PMHx: High blood sugar- likely diabetes, but reports no formal diagnosis Seizure disorder HTN GERD Anxiety/depression SurgHx: C section 7 abdominal surgeries for hernias Family Medical History Significant Family History: Cancer (Brother had Non-Hodgkins Lymphoma) Review of Systems ([facility]) Constitutional: No fever EENTM: no symptoms reported Respiratory: no symptoms reported Cardiovascular: no symptoms reported Gastrointestinal: see HPI Genitourinary: no symptoms reported Musculoskeletal: back pain, joint pain Skin: no symptoms reported Psychiatric/Neurological: No Symptoms Reported Reviewed Test Results Reviewed Test Results Lab Laboratory Tests Test 07/12/17 10:20 07/12/17 20:00 07/12/17 22:20 07/13/17 06:07 Range/Units Urine Color YELLOW Urine Clarity SLIGHTLY CLOUDY Urine pH 6.5 5-9 Urine Specific [place] 1.015 L 1.016-1.022 Urine Protein NEGATIVE NEGATIVE Urine Glucose (UA) NEGATIVE NEGATIVE Urine Ketones NEGATIVE NEGATIVE Urine Nitrite POSITIVE H NEGATIVE Urine Bilirubin NEGATIVE NEGATIVE Urine Urobilinogen 8 H NORMAL MG/DL Urine Leukocyte Esterase NEGATIVE NEGATIVE Urine RBC (Auto) NEGATIVE NEGATIVE Urine RBC RARE /HPF Urine WBC RARE /HPF Urine Squamous Epithelial Cells 5-10 /HPF Urine Crystals NONE /LPF Urine Bacteria TRACE /HPF Urine Casts NONE /LPF Urine Mucus MODERATE H /LPF Urine Culture Indicated YES White Blood Count 9.8 8.4 4.3-11.0 10^3/uL Red Blood Count 4.52 4.11 L 4.35-5.85 10^6/uL Hemoglobin 14.4 13.1 11.5-16.0 G/DL Hematocrit 44 41 35-52 % Mean Corpuscular Volume 97 99 80-99 FL Mean Corpuscular Hemoglobin 32 32 25-34 PG Mean Corpuscular Hemoglobin Concent 33 32 32-36 G/DL Red Cell Distribution Width 13.3 13.3 10.0-14.5 % Platelet Count 152 169 130-400 10^3/uL Mean Platelet Volume 9.5 9.6 7.4-10.4 FL Neutrophils (%) (Auto) 77 H 73 42-75 % Lymphocytes (%) (Auto) 14 17 12-44 % Monocytes (%) (Auto) 8 9 0-12 % Eosinophils (%) (Auto) 1 1 0-10 % Basophils (%) (Auto) 0 0 0-10 % Neutrophils # (Auto) 7.5 6.1 1.8-7.8 X 10^3 Lymphocytes # (Auto) 1.4 1.4 1.0-4.0 X 10^3 Monocytes # (Auto) 0.8 0.8 0.0-1.0 X 10^3 Eosinophils # (Auto) 0.1 0.1 0.0-0.3 10^3/uL Basophils # (Auto) 0.0 0.0 0.0-0.1 10^3/uL Sodium Level 140 139 135-145 MMOL/L Potassium Level 3.8 3.7 3.6-5.0 MMOL/L Chloride Level 106 107 98-107 MMOL/L Carbon Dioxide Level 26 23 21-32 MMOL/L Anion Gap 8 9 5-14 MMOL/L Blood Urea Nitrogen 4 L 4 L 7-18 MG/DL Creatinine 0.60 0.57 L 0.60-1.30 MG/DL Estimat Glomerular Filtration Rate > 60 > 60 BUN/Creatinine Ratio 7 7 Glucose Level 106 H 119 H 70-105 MG/DL Calcium Level 8.6 8.3 L 8.5-10.1 MG/DL Magnesium Level 1.7 L 1.8-2.4 MG/DL Total Bilirubin 0.6 0.8 0.1-1.0 MG/DL Aspartate Amino Transf (AST/SGOT) 13 12 5-34 U/L Alanine Aminotransferase (ALT/SGPT) 15 14 0-55 U/L Alkaline Phosphatase 90 79 40-136 U/L Total Protein 5.8 L 5.5 L 6.4-8.2 GM/DL Albumin 3.3 3.1 L 3.2-4.5 GM/DL Lactic Acid Level 0.85 0.50-2.00 MMOL/L Test 07/13/17 06:32 Range/Units Glucometer 123 H 70-110 MG/DL Radiology CT abdomen 07/12: IMPRESSION: Increasing anterior abdominal wall defect containing a large amount of herniated small and large bowel as well as omentum and mesenteric fat. Increased density in the mesentery may be due to mesenteric edema or inflammation. No abscess or hemorrhage is identified. There is also a small amount of right pleural fluid. Physical Exam-([facility]) Physical Exam Vital Signs VS - Last 72 Hours, by Label 07/12/17 07/12/17 07/12/17 07/13/17 19:40 23:29 23:40 01:03 Temp 97.5 100.1 Pulse 96 87 85 Resp 24 10 22 B/P (MAP) 132/72 Pulse Ox 99 98 97 O2 Delivery Nasal Cannula Nasal Cannula Nasal Cannula Nasal Cannula O2 Flow Rate 2.00 2.00 2.00 07/13/17 07/13/17 07/13/17 07/13/17 04:30 07:10 07:25 09:00 Temp 99.0 99.0 Pulse 81 81 Resp 20 20 B/P (MAP) 131/78 131/78 Pulse Ox 100 100 100 O2 Delivery Nasal Cannula Nasal Cannula Nasal Cannula Room Air O2 Flow Rate 2.00 2.00 2.00 2.00 07/13/17 12:00 Temp 98.0 Pulse 79 Resp 20 B/P (MAP) 102/70 Pulse Ox 98 O2 Delivery Room Air Capillary Refill : Less Than 3 Seconds General Appearance: no apparent distress Respiratory: lungs clear, normal breath sounds Cardiovascular: regular rate, rhythm, no murmur Gastrointestinal: normal bowel sounds, tenderness (diffuse), hernia Neurologic/Psychiatric: alert, normal mood/affect Skin: warm/dry Short Stay Diagnosis Discharge Diagnosis-Short Stay Admission Diagnosis Large ventral hernia, rule out incarceration/ischemia Final Discharge Diagnosis Large ventral hernia, rule out incarceration/ischemia- lactic acid normal and stable chronic abdominal pain present in the morning after admission, plan for continue outpatient follow-up at tertiary center Conclusion Plan See discharge diagnosis Clinical Quality Measures DVT/VTE Risk/Contraindication: Risk Factor Score Per Nursin RFS Level Per Nursing on Admit: 4+=Very High Copy Copies To 1: NORMA NIETO MD, BETHANY N MD Jul 13, 2017 9:50 pm
== END 2017-07-13 11:15 | disposition home or self-care (01) ==
LOC: EDUNIT# 19:39 → ER 19:41 → UNDOADMOB 22:56 → 4TH 22:56 → UNDODISOB 07-13 13:00
PROVIDERS: ADMIT Family Medicine; ATTEND Family Medicine
DX: K43.6 Other and unspecified ventral hernia with obstruction, without gangrene (principal); E66.01 Morbid (severe) obesity due to excess calories; E11.9 Type 2 diabetes mellitus without complications; J44.9 Chronic obstructive pulmonary disease, unspecified; G40.909 Epilepsy, unspecified, not intractable, without status epilepticus; G47.30 Sleep apnea, unspecified; F17.210 Nicotine dependence, cigarettes, uncomplicated; Z79.899 Other long term (current) drug therapy; Z98.84 Bariatric surgery status
CPT/HCPCS: 36415; 74176; 80053; 81000; 82962; 83605; 83735; 85025; 87077; 87088; 87186; 96361; 96374; G0378

== ENCOUNTER 2020-04-22 02:26 | Emergency (ER) | payer MEDICAID ==
[~2020-04-22] VITALS: Ht 162 cm; Wt 177.3 kg
[~2020-04-22 02:26] MED LIST changes: +ALBU2.5V4 NEB; +ARIP5TAB57 PO; +FURO40TA4 PO; +HYDR-3781 PO; +LEVE500T6 PO; +LISI-552 PO; +MECL-149 PO; +OMEP20CA18 PO; +ONDA8TAB13 PO; +PRAV20TA3 PO; +RT-ALBUINH INH; +SERT50TA9 PO; +TRAZ150T72 PO
[2020-04-22] MEDS ORDERED: NS IV 1000 ML 1,000 ML IV SCH (02:39)
[2020-04-22] MEDS ORDERED: FAMOTIDINE 20 MG (PEPCID) TABLET PO STA (02:44)
--- NOTE | 2020-04-22 02:44 | ED Abdominal Pain ---
General Chief Complaint: Abdominal/GI Problems Stated Complaint: ABD PAIN Nursing Triage Note: Pt to [facility] via [facility] from home with c/o epigastric pain with nausea. Pt reports chronic pain from hernia Sx a few years ago. States "I rolled over earlier and felt like something popped". PT reports regular bowel movements. Denies any fever/chills. Sepsis Screen: No Definite Risk Source of Information: Patient, EMS Exam Limitations: No Limitations History of Present Illness Date Seen by Provider: Apr 22, 2020 Time Seen by Provider: 02:31 Initial Comments The patient presents to ER by EMS from home with chief complaint of epigastric abdominal pain started this morning after she rolled over and felt like something came loose inside her abdomen. She initially called 911 because she was having anxiety and that she is having an anxiety attack. After EMS arrived her symptoms had abated but she decided she did have some abdominal pain all day and she would get it checked out. She has not taken anything for her pain. She says she doesn't have anything to take. He denies a history of GERD. She's had a laparotomy, tubes tied, 2 C-sections and her appendix out. She says she still has her gallbladder. She is not taking any antacids. She has no history of heart disease. She follows with a primary care doctor at [facility]. She's had no fevers or chills today but she said she had a subjective fever yesterday that went away as soon as her family directed some fans on her. She had some nausea earlier today but she took a dose of ondansetron 2 hours ago and that went away. She had a normal, formed bowel movement yesterday. Allergies and Home Medications Allergies Coded Allergies: latex (Verified Allergy, Intermediate, RASH, ITCHING, 03/02/11) vancomycin (Verified Allergy, Intermediate, HIVES, 03/02/11) iodine (Verified Allergy, Mild, "ILL", 03/02/11) lorazepam (Verified Allergy, Unknown, 07/12/17) phenobarbital (Verified Allergy, Unknown, 03/09/06) phenytoin (Verified Allergy, Unknown, 07/12/17) Home Medications Albuterol Sulfate 1 Puff Puff, 2 PUFF INH Q4H PRN for SHORTNESS OF BREATH, (Reported) LAST FILLED 12-06-16 Albuterol Sulfate 2.5 Mg/3 Ml Vial.neb, 2.5 MG NEB Q4H PRN for SHORTNESS OF BREATH, (Reported) Aripiprazole 5 Mg Tablet, 5 MG PO HS, (Reported) LAST FILLED #30 02-22-17 Furosemide 40 Mg Tablet, 40 MG PO BID, (Reported) LAST FILLED #60 03-03-17 Hydroxyzine Pamoate 25 Mg Capsule, 25-50 MG PO TID PRN for ANXIETY, (Reported) LAST FILLED #180 02-22-17 Levetiracetam 500 Mg Tablet, 500 MG PO BID, (Reported) LAST FILLED #60 04-28-17 Lisinopril 20 Mg Tablet, 20 MG PO DAILY, (Reported) LAST FILLED #30 02-02-17 Meclizine HCl 25 Mg Tablet, 25 MG PO TID PRN for DIZZINESS, (Reported) Omeprazole 20 Mg Capsule.dr, 20 MG PO BID, (Reported) LAST FILLED #60 03-14-17 Omeprazole 40 Mg Capsule.dr, 40 MG PO DAILY Prescribed by: WOOD ORTIZ on 04/22/20 0345 Ondansetron 8 Mg Tab.rapdis, 8 MG PO Q6H PRN for NAUSEA/VOMITING-1ST LINE, (Reported) Pravastatin Sodium 20 Mg Tablet, 20 MG PO DAILY, (Reported) LAST FILLED #30 12-06-16 Sertraline HCl 50 Mg Tablet, 75 MG PO DAILY, (Reported) LAST FILLED #45 02-22-17 TAKES 1 & 1/2 (50MG) TABLET Trazodone HCl 150 Mg Tablet, 150 MG PO HS, (Reported) LAST FILLED #30 02-22-17 Patient Home Medication List Home Medication List Reviewed: Yes Review of Systems Review of Systems Constitutional: No chills, No diaphoresis EENTM: No Blurred Vision, No Double Vision Respiratory: Denies Cough, Denies Shortness of Air Cardiovascular: Denies Chest Pain, Denies Edema Gastrointestinal: See HPI, Abdominal Pain; Denies Constipated, Denies Diarrhea; Nausea; Denies Poor Fluid Intake, Denies Vomiting Genitourinary: Denies Burning, Denies Discharge, Denies Drainage Musculoskeletal: No back pain, No joint pain Psychiatric/Neurological: Anxiety; Denies Headache, Denies Numbness, Denies Paresthesia All Other Systems Reviewed Negative Unless Noted: Yes Past Cukscrz-Rvkfzb-Axybxy Hx Patient Social History Alcohol Use: Denies Use Recreational Drug Use: No Smoking Status: Current Everyday Smoker Type Used: Cigarettes (3 cigarettes a day), Electronic/Vapor Recent Foreign Travel: No Contact w/Someone Who Travel: No Recent Infectious Disease Expo: No Recent Hopitalizations: Yes (HERNIA X 5, C-SECTIONS) Past Medical History Surgeries: Yes (LAPAROTOMY, C-SECTIONS) Respiratory: No Sleep Apnea, COPD Cardiac: Yes Chronic Edema/Swelling Neurological: Yes Seizure Disorder Reproductive Disorders: No Genitourinary: No Gastrointestinal: Yes (VENTRAL HERNIA) Musculoskeletal: No Endocrine: Yes Diabetes, Non-Insulin dep HEENT: No Cancer: No Psychosocial: Yes Anxiety, Depression Integumentary: No Blood Disorders: No Family Medical History Alzheimer's disease 19 MOTHER Arthritis 19 MOTHER Asthma 19 FATHER 19 MOTHER Colon cancer 19 MOTHER Completed stroke 19 FATHER 19 MOTHER Deafness or hearing loss Dementia 19 MOTHER Diabetes mellitus 19 FATHER Glaucoma 19 FATHER 19 MOTHER Hypertension 19 FATHER 19 MOTHER Myocardial infarction 19 FATHER 19 MOTHER Respiratory disorder 19 MOTHER Cancer Physical Exam Vital Signs Vital Signs - First Documented 04/22/20 02:30 Temp 36.4 Pulse 79 Resp 21 B/P (MAP) 151/70 (97) Pulse Ox 99 O2 Delivery Nasal Cannula O2 Flow Rate 2.00 Capillary Refill : Less Than 3 Seconds Height/Weight/BMI Height: 5'4.00" Weight: 396lbs. 0.0oz. [id number]; 67.00 BMI Method:Estimated General Appearance: no apparent distress, obese, other (wrapped in a blanket not wearing clothes.) HEENT: PERRL/EOMI, normal ENT inspection, TMs normal, pharynx normal Neck: full range of motion, supple, normal inspection Respiratory: no respiratory distress, no accessory muscle use, wheezing Cardiovascular: normal peripheral pulses, regular rate, rhythm Peripheral Pulses: 2+ Radial Pulses (R), 2+ Radial Pulses (L) Gastrointestinal: normal bowel sounds, soft, no organomegaly, tenderness (epigastric region. Negative for Subramanian sign, McBurney's point tenderness or Rovsing or other mesenteric signs) Extremities: normal range of motion, normal inspection, no pedal edema, normal capillary refill Neurologic/Psychiatric: alert, normal mood/affect, oriented x 3 Progress/Results/Core Measures Results/Orders Lab Results Laboratory Tests Test 04/22/20 02:43 04/22/20 02:50 Range/Units Urine Color DARK YELLOW Urine Clarity SL CLOUDY Urine pH 6.0 5-9 Urine Specific [place] >=1.030 1.016-1.022 Urine Protein NEGATIVE NEGATIVE Urine Glucose (UA) NEGATIVE NEGATIVE Urine Ketones NEGATIVE NEGATIVE Urine Nitrite POSITIVE H NEGATIVE Urine Bilirubin NEGATIVE NEGATIVE Urine Urobilinogen 2.0 < = 1.0 MG/DL Urine Leukocyte Esterase NEGATIVE NEGATIVE Urine RBC (Auto) NEGATIVE NEGATIVE Urine RBC NONE /HPF Urine WBC 0-2 /HPF Urine Squamous Epithelial Cells RARE /HPF Urine Crystals NONE /LPF Urine Bacteria FEW H /HPF Urine Casts NONE /LPF Urine Mucus NEGATIVE /LPF Urine Culture Indicated YES White Blood Count 6.5 4.3-11.0 10^3/uL Red Blood Count 4.90 4.35-5.85 10^6/uL Hemoglobin 15.4 11.5-16.0 G/DL Hematocrit 46 35-52 % Mean Corpuscular Volume 94 80-99 FL Mean Corpuscular Hemoglobin 31 25-34 PG Mean Corpuscular Hemoglobin Concent 34 32-36 G/DL Red Cell Distribution Width 13.2 10.0-14.5 % Platelet Count 206 130-400 10^3/uL Mean Platelet Volume 9.4 7.4-10.4 FL Neutrophils (%) (Auto) 64 42-75 % Lymphocytes (%) (Auto) 27 12-44 % Monocytes (%) (Auto) 7 0-12 % Eosinophils (%) (Auto) 2 0-10 % Basophils (%) (Auto) 0 0-10 % Neutrophils # (Auto) 4.2 1.8-7.8 X 10^3 Lymphocytes # (Auto) 1.7 1.0-4.0 X 10^3 Monocytes # (Auto) 0.5 0.0-1.0 X 10^3 Eosinophils # (Auto) 0.1 0.0-0.3 10^3/uL Basophils # (Auto) 0.0 0.0-0.1 10^3/uL Sodium Level 141 135-145 MMOL/L Potassium Level 4.0 3.6-5.0 MMOL/L Chloride Level 109 H 98-107 MMOL/L Carbon Dioxide Level 22 21-32 MMOL/L Anion Gap 10 5-14 MMOL/L Blood Urea Nitrogen 8 7-18 MG/DL Creatinine 0.59 L 0.60-1.30 MG/DL Estimat Glomerular Filtration Rate > 60 BUN/Creatinine Ratio 14 Glucose Level 164 H 70-105 MG/DL Calcium Level 8.5 8.5-10.1 MG/DL Corrected Calcium 9.0 8.5-10.1 MG/DL Total Bilirubin 0.4 0.1-1.0 MG/DL Aspartate Amino Transf (AST/SGOT) 8 5-34 U/L Alanine Aminotransferase (ALT/SGPT) 7 0-55 U/L Alkaline Phosphatase 78 40-136 U/L Troponin I < 0.028 <0.028 NG/ML C-Reactive Protein High Sensitivity 0.90 H 0.00-0.50 MG/DL Total Protein 6.3 L 6.4-8.2 GM/DL Albumin 3.4 3.2-4.5 GM/DL My Orders Orders - WOOD ORTIZ Cbc With Automated Diff (04/22/20 02:39) Comprehensive Metabolic Panel (04/22/20 02:39) Ua Culture If Indicated (04/22/20 02:39) Lipase (04/22/20 02:39) Hs C Reactive Protein (04/22/20 02:39) Continuous Ekg Monitoring (04/22/20 02:39) Ekg Tracing (04/22/20 02:39) Chest 1 View, Ap/Pa Only (04/22/20 02:39) Troponin I (04/22/20 02:39) Ed Iv/Invasive Line Start (04/22/20 02:39) Ns Iv 1000 Ml (Sodium Chloride 0.9%) (04/22/20 02:39) Lidocaine 2% Viscous 15 Ml (Xylocaine Vi (04/22/20 02:45) Famotidine Tablet (Pepcid Tablet) (04/22/20 02:44) Antacid Suspension (Mylanta Suspension (04/22/20 02:45) Ct Abdomen/Pelvis Wo (04/22/20 02:44) Albuterol/Ipra Inhalation Soln (Duoneb I (04/22/20 03:00) Svn Small Volume Nebulizer (04/22/20 02:50) Urine Culture (04/22/20 02:43) Cephalexin Capsule (Keflex Capsule) (04/22/20 03:30) Medications Given in ED Current Medications Medications Dose Ordered Sig/Sy Route Start Time Stop Time Status Last Admin Dose Admin Al Hydrox/Mg Hydrox/Simethicone 30 ml ONCE ONCE PO 04/22/20 02:45 04/22/20 02:46 DC 04/22/20 03:09 30 ML Albuterol/ Ipratropium 3 ml ONCE ONCE INH 04/22/20 03:00 04/22/20 03:01 DC 04/22/20 03:26 3 ML Cephalexin HCl 500 mg ONCE ONCE PO 04/22/20 03:30 04/22/20 03:31 DC 04/22/20 03:26 500 MG Lidocaine HCl 15 ml ONCE ONCE PO 04/22/20 02:45 04/22/20 02:46 DC 04/22/20 03:09 15 ML Vital Signs/I&O 04/22/20 04/22/20 02:30 03:29 Temp 36.4 Pulse 79 Resp 21 B/P (MAP) 151/70 (97) Pulse Ox 99 98 O2 Delivery Nasal Cannula Nasal Cannula O2 Flow Rate 2.00 2.00 Blood Pressure Mean: 97 Progress Progress Note #1: Time: 02:49 Progress Note DuoNeb for her wheezing. GI cocktail for her epigastric pain, basic labs and a CT without IV contrast. Lipase. Urinalysis. EKG and troponin for atypical anginal although this is less likely since her pain is reproducible to direct palpation. Progress Note #2: Time: 03:26 Progress Note Resolution of symptoms in her epigastric region 10 minutes after taking the GI cocktail. She still having a little bit of discomfort to the right and inferior of this. Perhaps duodenitis? CT scan pending. Progress Note #3: Time: 03:[address] findings appear to be chronic and do not correlate with the clinical examination nor chief complaint. Patient did ponder to the nurse whether the amb ulance would be willing to take her to her sister's house tonight. Initial ECG Impression Date: Apr 22, 2020 Initial ECG Impression Time: 03:09 Initial ECG Rate: 71 Initial ECG Rhythm: Normal Sinus Initial ECG Intervals: Normal Initial ECG Impression: Normal Comment Normal sinus rhythm without clinically relevant ST T wave changes. Diagnostic Imaging Diagonstic Imaging: Xray Plain Films/CT/US/NM/MRI: chest (1 view) Comments Unremarkable one view chest x-ray. Reviewed: Reviewed by Me Diagonstic Imaging: CT (without IV contrast) Plain Films/CT/US/NM/MRI: abdomen, pelvis Comments Large left midline abdominal wall hernia containing numerous loops of anteriorly herniated large and small intestine. No definite strangulation at this time although there is possibility for incarceration. Punctate nonobstructing calyceal calculus at the left kidney. Reviewed: Reviewed [place] Study, Reviewed by Me Departure Impression Primary Impression: Gastritis and duodenitis Additional Impressions: Anxiety UTI (urinary tract infection) Qualified Codes: N30.00 - Acute cystitis without hematuria Disposition: HOME, SELF-CARE Condition: Stable Departure-Patient Inst. Decision time for Depature: 03:43 Referrals: [facility] (PCP/Family) Primary Care Physician Patient Instructions: Gastritis (DC) Add. Discharge Instructions: Omeprazole/Prilosec 40 mg daily for the next 2 weeks. Tums, Rolaids, Mylanta, Maalox, Pepto-Bismol etc. if you have repeat epigastric pain. Keflex one capsule twice a day for the next week for UTI. Follow-up with your primary care doctor in the next 2-4 weeks to discuss results and whether you need further referral for subspecialty evaluation. You may also use Tylenol 1000 mg every 8 hours as necessary. Return to the ER if you have chest pain, shortness of air or if you're unable to pass a bowel movement for greater than 5 days despite using laxatives. All discharge instructions reviewed with patient and/or family. Voiced understanding. Scripts Cephalexin (Cephalexin) 500 Mg Tablet 500 MG PO BID for 7 Days, #13 TAB 0 Refills Prov: WOOD ORTIZ 04/22/20 Omeprazole (Omeprazole) 40 Mg Capsule.dr 40 MG PO DAILY for 14 Days, #14 CAP 0 Refills Prov: WOOD ORTIZ 04/22/20 WOOD ORTIZ Apr 22, 2020 02:44
[2020-04-22] MEDS ORDERED: LIDOCAINE 2% VISCOUS 15 ML UDC PO ONE (02:45)
[2020-04-22] MEDS ORDERED: ANTACID SUSP 30 ML UDC (MYLANTA) PO ONE (02:45)
[2020-04-22 02:49] LABS: BILIRUBIN,URINE NEGATIVE (NEGATIVE); CLARITY,URINE SL CLOUDY; COLOR,URINE DARK YELLOW; GLUCOSE, URINE (UA) NEGATIVE (NEGATIVE); KETONES,URINE NEGATIVE (NEGATIVE); LEUKOCYTE ESTERASE ,URINE NEGATIVE (NEGATIVE); NITRITE,URINE POSITIVE (NEGATIVE); PROTEIN,URINE NEGATIVE (NEGATIVE)
[2020-04-22 02:58] LABS: BACTERIA,URINE FEW /HPF; WBC,URINE 0-2 /HPF
[2020-04-22 02:59] LABS: SQUAMOUS EPITHELIAL CELL,UR RARE /HPF
[2020-04-22] MEDS ORDERED: RT-ALBUTEROL/IPRATROPIUM 3 ML (DUONEB) VIAL INH ONE (03:00)
[2020-04-22 03:03] LABS: BASOPHILS % (AUTO) 0 % (0-10); EOSINOPHILS # (AUTO) 0.1 10^3/uL (0.0-0.3); EOSINOPHILS % (AUTO) 2 % (0-10); HEMATOCRIT 46 % (35-52); HEMOGLOBIN 15.4 G/DL (11.5-16.0); LYMPHOCYTES # (AUTO) 1.7 X 10^3 (1.0-4.0); LYMPHOCYTES % (AUTO) 27 % (12-44); MEAN CORPUSCULAR HEMOGLOBIN 31 PG (25-34); MEAN CORPUSCULAR HGB CONC 34 G/DL (32-36); MEAN CORPUSCULAR VOLUME 94 FL (80-99); MEAN PLATELET VOLUME 9.4 FL (7.4-10.4); MONOCYTES # (AUTO) 0.5 X 10^3 (0.0-1.0); MONOCYTES % (AUTO) 7 % (0-12); NEUTROPHILS # (AUTO) 4.2 X 10^3 (1.8-7.8); NEUTROPHILS % (AUTO) 64 % (42-75); PLATELET COUNT 206 10^3/uL (130-400); RED CELL DISTRIBUTION WIDTH 13.2 % (10.0-14.5); WHITE BLOOD COUNT 6.5 10^3/uL (4.3-11.0)
[2020-04-22 03:17] LABS: ALBUMIN 3.4 GM/DL (3.2-4.5)
[2020-04-22 03:18] LABS: CHLORIDE 109 MMOL/L (98-107); SODIUM 141 MMOL/L (135-145)
[2020-04-22 03:19] LABS: CALCIUM 8.5 MG/DL (8.5-10.1)
[2020-04-22 03:20] LABS: GLUCOSE 164 MG/DL (70-105); TOTAL PROTEIN 6.3 GM/DL (6.4-8.2)
--- OUTSIDE RECORDS SUMMARY | 2020-04-22 03:20 | XMS REPORT | Encounter Summary ---
Author Author [facility] Organization [facility] Address Unknown Phone Unavailable Care Team Providers Care Paymaster Of Purses Name Role Phone Minesh Solis MD PCP Minesh Solis MD 100 Reason for Visit * Reason Comments Rash heat rash Medication Management * (Routine) Referred By Contact Referred To Contact Status Reason Specialty Diagnoses / Procedures Incomplete Encounter Details Care Team Description Date Type Department Minesh Solis MD [address] [facility] [address]vl [address] [place] [address] [id number] Royce Waterman, CREDENTIALS SPECIALIST-VICE PRESIDENT [employer] [address] [place], [place] [id number] Chronic respiratory failure with hypoxia (HCC) (Primary Dx); Urinary and bowel incontinence; Healthcare maintenance; Essential hypertension; Mixed hyperlipidemia; Moderate episode of recurrent major depressive disorder (HCC); Morbid obesity with BMI of 60.0-69.9, adult (HCC); Other emphysema (HCC); Type 2 diabetes mellitus with diabetic polyneuropathy, with long-term current use of insulin (HCC); PTSD (post-traumatic stress disorder); Nocturnal hypoxia 03/06/2020 Office Visit Internal Medicine Telehealth [address] [place] [address] Social History Date Tobacco Use Types Packs/Day Years Used Former Smoker Cigarettes 1 Smokeless Tobacco: Current User Drinks/Week oz/Week Comments Alcohol Use No Sex Assigned at Date Recorded Not on file Industry Job Start Date Occupation Not on file Not on file Not on file Travel End Travel History Travel Start No recent travel history available. documented as of this encounter Functional Status Date of Assessment Functional Status Response 02/05/2018 Does the patient have a hearing impairment: No documented as of this encounter Patient Instructions * Patient Instructions* Royce Waterman APRN-NP - 03/06/2020 9:30 AM CDT Our plan: Get labs drawn Please notify the clinic or go to the emergency room if you develop sudden worse dahiana of symptoms, fevers, chest pain, difficulty breathing, or other concerning symptoms. Please call my nurse, Tram, if you have any further questions or concerns. Her direct phone number is [phone]. You can leave a voicemail if needed. You can also reach us by sending a secure message through [employer]. Helpful Information: We will contact you by [employer] or phone with any test results when they are a vailable. If you are expecting results and have not heard from us within 2 weeks of you r testing, please send a [employer] message or call the clinic. Please use the [employer] Refill request or contact your pharmacy directly to re quest medication refills. - Please allow at least 72 hours for refill requests. For appointments: Our Scheduling phone number is [phone]. It was nice to see you today! Thank you for coming into our clinic. Take care, Royce Waterman APRN No future appointments. documented in this encounter Progress Notes * Royce Waterman APRN-NP - 03/06/2020 9:30 AM CDT Date of Service: 03/06/2020 Yomaira Merino is a 54 y.o. female. : 1965 Subjective: Chief Complaint Patient presents with Rash heat rash Medication Management History of Present Illness Obtained patient's verbal consent to treat them and their agreement to [facility] policy and NPP via this telehealth visit during the Coronavirus Public [facility] Yomaira Merino is 54 y.o. patient who presents for urgent telehealth visi t. We experienced a lot of technical difficulties during visit, so it is hard to hear what patient is saying. Patient is needing several medical supplies and medications today. She states sh e was wearing 2 L of oxygen, mostly at night. She wants to know if we received f ax from her insurance requesting oxygen. She hasn't talked to insurance yet. Patient also states she has a red, itchy rash under her breasts. Nystatin hasn't worked for this in the past, so she's used Silvadene, which has really helped. She requests refill on this. She is also needing more depends, chucks, and gloves sent to her medical supply company. She doesn't know what this company is or any of her insurance informati on. She states she has been chronically incontinent of urine at times and needs these supplies for that reason. She is also requesting that her nebulizer solution be sent in. She lost this whe n she was in [place]. Patient is due for labs that were ordered in May. She is on many medications an d we need to check her kidney function/electrolytes. She is also due for several health maintenance screenings, including colonoscopy and PAP. Patient wishes to discuss this at next appointment. She states she has appointment on 05/13 with Eliazar Solis. However, it shows that this appointment was cancelled in our system. Medical History: Diagnosis Date Convulsions (HCC) COPD (chronic obstructive pulmonary disease) (HCC) Depression Essential hypertension 01/02/2018 H/O bariatric surgery Type 2 diabetes mellitus with complication (HCC) 01/02/2018 Surgical History: Procedure Laterality Date ESOPHAGOGASTRODUODENOSCOPY N/A 04/19/2017 Performed by Effie Morel MD at [facility] ESOPHAGOGASTRODUODENOSCOPY BIOPSY 04/19/2017 Performed by Effie Morel MD at [facility] ABDOMEN SURGERY gastric sleeve 2016 HX SECTION family history includes Diabetes in her father, maternal grandfather, and matern al grandmother. 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 Social History Tobacco Use Smoking status: Former Smoker Packs/day: 1.00 Types: Cigarettes Smokeless tobacco: Current User Substance Use Topics Alcohol use: No Review of Systems Cardiovascular: Negative for chest pain. Respiratory: Negative for shortness of breath. Skin: Positive for rash. Gastrointestinal: Positive for bowel incontinence (Occasionally, not new). Genitourinary: Positive for bladder incontinence. Objective: albuterol (PROAIR HFA, VENTOLIN HFA, OR PROVENTIL HFA) 90 mcg/actuation inha ler Inhale two puffs by mouth into the lungs every 6 hours as needed for Wheezin g or Shortness of Breath. Shake well before use. albuterol 0.5% (PROVENTIL) 2.5 mg/0.5 mL nebulizer solution Inhale 0.5 mL so lution by nebulizer as directed every 4 hours as needed for Shortness of Breath. ARIPiprazole (ABILIFY) 5 mg tablet Take one tablet by mouth daily. atorvastatin (LIPITOR) 40 mg tablet Take one tablet by mouth daily. blood sugar diagnostic (ACCU-CHEK FENG PLUS TEST STRP) test strip Test as d irected Dx E11.9 checking Qam diazePAM (VALIUM) 5 mg tablet Take 5 mg by mouth every 12 hours as needed fo r Anxiety. fluticasone (FLONASE) 50 mcg/actuation nasal spray Apply 2 sprays to each no stril as directed daily. Shake bottle gently before using. fluticasone-salmeterol (ADVAIR DISKUS) 250-50 mcg/dose inhalation disk Inhal e one puff by mouth into the lungs every 12 hours. furosemide (LASIX) 40 mg tablet Take one tablet by mouth twice daily. gabapentin (NEURONTIN) 300 mg capsule Take one capsule by mouth every 8 hour s. hydroCHLOROthiazide (HYDRODIURIL) 25 mg tablet TAKE 1 TABLET BY MOUTH DAILY IN THE MORNING hydrOXYzine pamoate (VISTARIL) 25 mg capsule Take 1-2 capsules by mouth thre e times daily as needed for Anxiety. lancets (ACCU-CHEK FASTCLIX LANCING DEV) MISC Test Qam Diag: E11.9 lisinopril (ZESTRIL) 20 mg tablet TAKE 1 TABLET BY MOUTH DAILY meclizine (ANTIVERT) 25 mg tablet Take 1 tablet by mouth three times daily. metFORMIN (GLUCOPHAGE) 500 mg tablet TAKE 1 TABLET BY MOUTH TWICE DAILY WITH MEALS Miscellaneous Medical Supply [facility] O2 order; Patient requires 2L via NC w/exe rtion and night. Dispense any necessary equipment and replace/repair when needed ; DX: G47.34 and J96.11; ELHAM:99 months Miscellaneous Medical Supply [facility] Whey protein Shakes; DX:E66.01 Z68.44 Miscellaneous Medical Supply [facility] Please dispense sg pads; DX:R32 nystatin (MYCOSTATIN) 100,000 unit/g topical cream Apply to affected area BI D pantoprazole DR (PROTONIX) 20 mg tablet Take one tablet by mouth daily with breakfast. sertraline (ZOLOFT) 50 mg tablet Take two tablets by mouth daily. silver sulfADIAZINE (SILVADENE) 1 % topical cream Use two times daily as nee ded. vitamins, multi w/minerals tablet Take 1 tablet by mouth daily. WHEEL CHAIR medical lab specialist Standard wheelchair. Height: 5'4" Weight 380 lbs . Diagnosis. Dx code: ICD M15.0/E66.01 . Length of need 999. Reason Improve mob ility Vitals: 03/06/20 0917 PainSc: Ten There is no height or weight on file to calculate BMI. BP Readings from Last 5 Encounters: 09/27/19 138/63 08/02/19 137/82 06/12/19 129/90 06/05/18 112/72 05/09/18 101/59 Wt Readings from Last 5 Encounters: 09/27/19 (!) 174.9 kg (385 lb 9.6 oz) 07/10/19 (!) 172.4 kg (380 lb) 06/12/19 (!) 174.2 kg (384 lb) 06/05/18 (!) 169.1 kg (372 lb 12.8 oz) 05/09/18 (!) 172.4 kg (380 lb) Physical Exam Vitals signs and nursing note reviewed. Constitutional: Appearance: She is obese. Comments: Exam limited due to telehealth visit. HENT: Head: Normocephalic and atraumatic. Pulmonary: Effort: Pulmonary effort is normal. No respiratory distress. Neurological: Mental Status: She is alert and oriented to person, place, and time. Psychiatric: Mood and Affect: Mood normal. Behavior: Behavior normal. Assessment and Plan: 1. Chronic respiratory failure with hypoxia (HCC) 2. Urinary and bowel incontinence 3. Healthcare maintenance 4. Essential hypertension 5. Mixed hyperlipidemia 6. Moderate episode of recurrent major depressive disorder (HCC) 7. Morbid obesity with BMI of 60.0-69.9, adult (HCC) 8. Other emphysema (HCC) 9. Type 2 diabetes mellitus with diabetic polyneuropathy, with long-term current use of insulin (HCC) 10. PTSD (post-traumatic stress disorder) Patient is needing somel medications and several medical supplies sent in. She i s overdue on several health screenings and labs. It is hard to discuss this with patient during this visit, as her Internet service was going in and out. -Patient wishes to discuss healthcare maintenance at next appointment. She will need PAP. -she agrees to have labs drawn before next appointment. These have already been ordered in May. -I sent in silvadene to help with her rash, as patient states this has worked be tter than Nystatin in the past. Also provided her refill on nebulizer treatment -advised patient to contact her health insurance to see what is needed from our office for her oxygen. Provided her with fax number. -will work with Dr. Solis's team to facilitate other medical supply orders -patient was instructed to go to the ER if she feels very SOB or has severe/wors ening symptoms -her appointment in April is not showing up in the system. She will need to be re scheduled for this Orders Placed This Encounter albuterol 0.5% (PROVENTIL) 2.5 mg/0.5 mL nebulizer solution silver sulfADIAZINE (SILVADENE) 1 % topical cream Greater than 25 minutes spent with pt with >50% of the time counseling and coordinating care. This consultation time included discussion of medical issues, interpretation of data and educating patient as to condition and treatment options (and potential risks and benefits). Patient Instructions Our plan: Get labs drawn Please notify the clinic or go to the emergency room if you develop sudden worse dahiana of symptoms, fevers, chest pain, difficulty breathing, or other concerning symptoms. Please call my nurse, Tram, if you have any further questions or concerns. Her direct phone number is [phone]. You can leave a voicemail if needed. You can also reach us by sending a secure message through [employer]. Helpful Information: We will contact you by Yes[employer] or phone with any test results when they are a vailable. If you are expecting results and have not heard from us within 2 weeks of you r testing, please send a [employer] message or call the clinic. Please use the [employer] Refill request or contact your pharmacy directly to re quest medication refills. - Please allow at least 72 hours for refill requests. For appointments: Our Scheduling phone number is [phone]. It was nice to see you today! Thank you for coming into our clinic. Take Royce childress APRN No future appointments. Royce Waterman APRN-SHELBY documented in this encounter Miscellaneous Notes * Addendum Note - Tram Colon LPN - 03/06/2020 9:30 AM CDT Addended by: TRAM COLON on: 03/06/2020 10:21 AM Modules accepted: Orders documented in this encounter Plan of Treatment Not on filedocumented as of this encounter Visit Diagnoses Diagnosis Chronic respiratory failure with hypoxi a (HCC) Chronic respiratory failure Urinary and bowel incontinence Unspecified urinary incontinence Healthcare maintenance Routine general medical examination at a health care facility Essential hypertension Unspecified essential hypertension Mixed hyperlipidemia Moderate episode of recurrent major dep ressive disorder (HCC) Morbid obesity with BMI of 60.0-69.9, a dult (HCC) Morbid obesity Other emphysema (HCC) Other emphysema Type 2 diabetes mellitus with diabetic polyneuropathy, with long-term current use of insulin (HCC) PTSD (post-traumatic stress disorder) Posttraumatic stress disorder Nocturnal hypoxia Hypoxemia documented in this encounter
--- OUTSIDE RECORDS SUMMARY | 2020-04-22 03:20 | XMS REPORT ---
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 [facility] Dezide Address [address] [address] Care Team Providers Care Radio Journalist Name Role Phone JOSÉ MIGUEL CLEARY Unavailable GAULT, NORMA Unavailable GAULT, NORMA Unavailable GAULT, NORMA Unavailable GAULT, NORMA Unavailable GAULT, NORMA Unavailable GAULT, NORMA Unavailable GAULT, NORMA Unavailable GAULT, NORMA Unavailable GAULT, NORMA Unavailable YOANDY SMITH MD Unavailable Unavailable Migration, Doctor Unavailable Unavailable Migration, Doctor Unavailable Unavailable SCOUT LOVING Unavailable Unavailable Migration, Doctor Unavailable Unavailable GAULT, NORMA Unavailable Unavailable Larson, Fco Unavailable Unavailable Larson, Fco Unavailable Unavailable JASVIR, JASVIR Unavailable Unavailable JASVIR, JASVIR Unavailable Unavailable Larson Unavailable Unavailable Riley, Deniz Unavailable Unavailable Riley Unavailable Unavailable Riley, Deniz Unavailable Unavailable Unavailable Unavailable Unavailable Unavailable Unavailable Unavailable Allergies Normalized Allergy Reported Date of Reaction(s) Care Provider Facility Allergy Type classification allergen Allergy Onset Substance Contrast Media Contrast media no information JASVIR Dominguez Allergy (1 [facility] source.) [facility] ([address]75) Drug Allergy Iodine (and Iodine 03-02-2011 - "ILL" SCOUT Not Available (11 sources.) Iodine RAQUEL CALIXTO (63278) containting drugs) Drug Allergy Anti-Epileptic Phenytoin 07-12-2017 - no informatianiket SMITH Not Available (4 sources.) MD Rebeca (34408) Drug Allergy Sulfonamides Sulfonamides no information JASVIR Dominguez (1 source.) (antibiotic) (Antibiotic) [facility] (75850) Drug Allergy Glycopeptides Vancomycin 03-02-2011 - CASSIA MALIK GALINA Not Available (11 sources.) (antibiotic) RAQUEL CALIXTO (44299) Medications Medication Ingredient Drug Dose Dates Status Sig Sig Care Class(es) (Normalized) (Original) Provid er escitalopra Escitalopra Serotonin 20 mg 11-22-19 Active take 1 Lexapro 20 no m 20 mg m Reuptake 12 tablet by mg SI name oral tablet Translation Inhibitor mouth once tab(s) (1 source.) s: [ daily orally once Lexapro 20 a day 09 mg] Nov, 2011 Active gabapentin gabapentin Anti-epilep 300 mg 11-22-19 Active take 1 Neurontin no 300 mg oral Translation tic Agent 12 capsule by 300 mg SI G: name capsule (1 s: [ mouth three 1 cap(s) source.) Neurontin times daily orally 3 300 mg] times a day Nov, Active hydroCHLORO hydroCHLORO Thiazide 50 mg 11-22-19 Active take 1 Hydrochlorot no thiazide 50 thiazide Diuretic 12 tablet by hiazide 50 na me mg oral Translation mouth once mg SI tablet (1 s: [ daily tab(s) source.) Hydrochloro orally once thiazide 50 a day 09 mg] Nov, 2011 Active naproxen Naproxen Nonsteroida 500 mg 11-22-19 Active take 1 Napr osyn 500 no 500 mg oral Translation l 12 tablet by mg SI n bebeto tablet (1 s: [ Anti-inflam mouth twice tab(s) source.) Naprosyn matory Drug daily orally 2 500 mg] times a day Nov, Active no Vistaril no 25 mg 11-22-19 Active take 1 Vistaril n o information pamoate 25 information 12 tablet by pamoate 2 5 name (1 source.) mg mouth four mg SI times daily tab(s) orally 4 times a day Nov, Active ziprasidone ziprasidone Atypical 80 mg 11-22-19 Active take 1 G eodon 80 mg no 80 mg oral Translation Antipsychot 12 capsule by SI name capsule (1 s: [ Geodon ic mouth once cap(s) source.) 80 mg] daily orally Once daily. Nov, Active zolpidem zolpidem gamma-Amino 10 mg 11-22-19 Active take 1 Ambi en 10 mg no tartrate 10 Translation butyric 12 tablet by SI na me mg oral s: [ Ambien Acid-ergic mouth once tab(s) tablet (1 10 mg] Agonist daily at orally once source.) bedtime, a day (at then take 2 bedtime) tablets by Every other mouth night. Nov, Active Problems Active Problems Problem Normalized Date Last Normalized Normalized Provider Fa cility Classification Problem(s) Recorded Problem Problem Sta tus Duration Other lower Acute Episodic Active Fcoford Porter e respiratory respiratory [facility] disease ([facility] source[facility] (91544) Other Bariatric Episodic Active JOSÉ MIGUEL MADIHA Not Avai lable gastrointestin surgery status , (26557) al disorders Translations: (5 sources.) [ Bariatric surgery status] Other Body mass Chronic Active Doctor [facility] nutritional; index (BMI) [facility] endocrine; and 60.0-69.9, of [facility] ([place], [place]) metabolic adult [place] (99190) disorders (5 Translations: sources.) [ - Body mass index (BMI) of 60.0-69.9 in adult Z68.44, Body mass index (BMI) 60.0-69.9, adult] Other Body mass Chronic Active Doctor [facility] nutritional; index 40+ - [facility] endocrine; and severely obese of [facility] ([place], [place]) metabolic Translations: [place] (41944) disorders (6 [ Body mass sources.) index (BMI) of 60.0-69.9 in adult, Morbid (severe) obesity due to excess calories] Chronic Chronic Chronic Active JOSÉ MIGUEL MADIHA Not Avail able obstructive obstructive , (31081) pulmonary pulmonary disease and disease, bronchiectasis unspecified (3 sources.) Other lower Dyspnea, Episodic Active Fco Porter e respiratory unspecified [facility] disease ([facility] source.) (24987) Residual Edema Episodic Active Doctor [facility] codes; Translations: [facility] unclassified [ Chronic of [facility] ([place], [place]) (3 sources.) edema] [place] (38713) Epilepsy; Epilepsy, Chronic Active JOSÉ MIGUEL MADIHA Not Avai lable convulsions (3 unspecified, , (07880) sources.) not intractable, without status epilepticus Abdominal pain Generalized Episodic Active Fco Neo corbin (5 sources.) abdominal pain [facility] Translations: Hospital [ Unspecified (66742) abdominal pain, Generalized abdominal pain] Other [facility] Episodic Active Deniz Dominguez aftercare (2 (current) use [facility] sources.) of oral Hospital hypoglycemic (22236) drugs Other Neurological Episodic Active [facility] connective finding [facility] tissue disease Translations: of [place] (2 sources.) [ Seizure-like [place] (01253) activity] Other Obesity, Chronic Active Deniz Dominguez nutritional; unspecified [facility] endocrine; and Hospital metabolic (77082) disorders (2 sources.) Other Other long Episodic Active JOSÉ MIGUEL CLEARY Not Debbie ilable aftercare (5 term (current) , (89993) sources.) drug therapy Translations: [ Other shelter (current) drug therapy] Screening and Personal Episodic Active Fco Neo [place] nce history of history of [facility] and substance dependence (63747) abuse codes (3 sources.) Substance-rela Tobacco use Chronic Active YOANDY SMITH Not Available zahra disorders disorder MD (41042) (11 sources.) Translations: [ NICOTINE DEPENDENCE, CIGARETTES, UNCOMPL, - Amphetamine and other psychostimulan t dependence, 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, Amphetamine dependence, Amphetamine and other psychostimulan t dependence, unspecified] Diabetes Type 2 Chronic Active JOSÉ MIGUEL CLEARY Not Avail able mellitus diabetes MD (65316) without mellitus complication without (5 sources.) complications Translations: [ Type 2 diabetes mellitus without complications] Malaise and Weakness Episodic Active Fco Neo Porter e fatigue (1 [facility] source.) Hospital (71409) Past or Other Problems Problem Normalized Date Last Normalized Normalized Provider Fa cility Classification Problem(s) Recorded Problem Problem Sta tus Duration Superficial Contusion of Episodic Completed SCOUT Not Debbie ilable injury; knee RAQUEL CALIXTO (75071) contusion (1 source.) Other lower Cough Episodic Completed YOANDY SMITH Not Av ailable respiratory MD (75973) disease (3 sources.) External cause Fall from no information no information SCOUT Not Available codes: other RAQUEL CALIXTO (85140) Overexertion slipping, (1 source.) tripping, or stumbling External cause Home accidents no information no information GRE TCHEN Not Available codes: Place RAQUEL CALIXTO (80211) of occurrence (1 source.) Other injuries Knee, leg, Episodic Completed SCOUT Not Av ailable and conditions ankle, and RAQUEL CALIXTO (92497) due to foot injury external causes (1 source.) Other injuries Nonspecific Episodic Completed SCOUT Not A vailable and conditions abnormal RAQUEL CALIXTO (79409) due to toxicological external findings causes (1 source.) External cause Other external no information no information GRE TCHEN Not Available codes: cause status RAQUEL CALIXTO (11218) Unspecified (1 source.) Other lower Shortness of Episodic Completed YOANDY SMITH No t Available respiratory breath MD (86148) disease (2 sources.) Residual Sleep apnea, no information no information JOSÉ MIGUEL EN OCH Not Available codes; unspecified , (17290) unclassified (3 sources.) Other lower Wheezing Episodic Completed YOANDY SMITH Not Av ailable respiratory , (51426) disease (2 sources.) Procedures Procedure Normalized Procedure Procedure Result Performer Facility Date 10-07-2019 Ther proph/dx njx iv no information no name [address] ([address]) sbst[facility]drug 09-23-2019 Ther proph/dx njx iv no information no name [address] ([address]) sbst/drug 10-07-2019 Therapeutic injection no information no name [facility] iv [facility] (48543) 09-23-2019 Therapeutic injection no information no name [facility] iv [facility] (70621) Immunizations Normalized Immunization Date Notes Care Provider Facili ty Immunization pneumococcal 05-09-2018 no information no name [facility] polysaccharide [facility] vaccine, 23 valent [facility] (74699) tetanus toxoid, 05-14-2013 no information no name Not Debbie ilable reduced diphtheria (84104) toxoid, and acellular pertussis vaccine, adsorbed Results The data below is from unstructured sources No Results No Results No Results No Results No Results No Results No Results No Results No Results No Results No Results No Results No Results No Results No Results No Results No Results No Results No Results No Results No Results No Results No Results No Results No Results Vital Signs No Information Interventions No Information Plan of Treatment The data below is from unstructured sources Activity Details Follow Up 3 Months with Naila f/u [facility] Reason: Goals No Information Social History No Information Functional Status No Information Mental Status No Information Encounters Encounter Normalized Encounter Encounter Diagnosis Care Provi narendra Organization Date Type 12-18-2018 ([facility]ANB-BRF) Substance no information [facility] (n o phone) [facility] Abuse Brief Contact (no phone) 10-07-2019 Emergency department no information no name no organization name - patient visit 10-07-2019 09-23-2019 Emergency department no information no name no organization name - patient visit 09-23-2019 07-12-2017 Emergency department no information no name no organization name patient visit 12-22-2013 Emergency department no information no name no organization name - patient visit 12-23-2013 10-07-2019 Emergency department no information no name no organization name visit high/urgent severity 09-23-2019 Emergency dept visit no information no name no organization name high severity&threat funcj 07-12-2017 Evaluation and no information no name no organ ization name - management of 07-13-2017 inpatient 01-02-2019 Follow-up encounter Other stimulant RUPA SUKHWINDERAN (no [facility] (no phone) dependence, phone) [place] (no uncomplicated phone) NEGATED Patient encounter no information no name no or ganization name 05-22-2019 Patient encounter no information no name no or ganization name procedure 01-02-2019 Patient encounter no information no name no or ganization name procedure 12-18-2018 Patient encounter no information no name no or ganization name procedure 07-12-2017 Patient encounter no information no name no or ganization name - procedure 07-13-2017 01-07-2017 Patient encounter no information no name no or ganization name procedure 06-25-2015 Patient encounter no information no name no or ganization name procedure Medical Equipment No Information Payers No Information Additional Source Comments This clinical document has been generated using [employer] software that has been certified by the Office of the National Coordinator for Health Information Technology (ONC 15.99.04.3023.Diam.[id number]) and the National Committee for Roller [employer] (NCQA, as an eMeasure certified technology). FOR RECORDS PERTAINING TO PATIENTS WHO ARE OR HAVE BEEN ENROLLED IN A CHEMICAL D EPENDENCY/SUBSTANCE ABUSE PROGRAM, SOME INFORMATION MAY BE OMITTED. This clinica l summary was aggregated from multiple sources. Caution should be exercised in using it in the provision of clinical care. This summary normalizes information from multiple sources, and as a consequence, information in this document may ma terially change the coding, format and clinical context of patient data. In leno tion, data may be omitted in some cases. CLINICAL DECISIONS SHOULD BE BASED ON T HE PRIMARY CLINICAL RECORDS. [employer]. provides no warranty or guara ntee of the accuracy or completeness of information in this document.The followi ng information is based on time limited clinical information UNRECOGNIZED CONTENT PROVIDED BELOW FOR UNRECOGNIZED SECTION MEDICAL (GENERAL) HISTORY Type Description Date Medical History seizures Medical History hyperlipidemia Medical History sleep apnea - on night o2 Medical History hypertension Medical History depression/anxiety Medical History agoraphobia Surgical History 8 abdominal surgeries Surgical History appendix Surgical History x2 Surgical History laparatomoy Surgical History gastric sleeve 2016 Hospitalization History abdominal pa in, hernia-[facility] 07/12/17 UNRECOGNIZED CONTENT PROVIDED BELOW FOR UNRECOGNIZED SECTION REASON FOR VISIT [id number]
--- OUTSIDE RECORDS SUMMARY | 2020-04-22 03:20 | XMS REPORT | Encounter Summary ---
Author Author [facility] Organization [facility] Address Unknown Phone Unavailable Care Team Providers Care Veterinary Technology Instructor Name Role Phone Minesh Solis MD PCP Minesh Solis MD 100 Reason for Visit * Reason Comments Medication Refill Encounter Details Care Team Description Date Type Department Minesh Solis MD [address] [facility] Lvl 4B [place], [place] [id number] Essential hypertension 11/20/2019 Refill Internal Medicine [address] [place] [id number] Social History Date Tobacco Use Types Packs/Day [...] impairment: No documented as of this encounter Miscellaneous Notes * Telephone Encounter - Sana Donnelly RN - 11/20/2019 8:29 AM ENTERTAINMENT PRODUCTION PROFESSIONAL Pharmacy requesting: HCTZ LR: 09/27/19 AVA: 09/27/19 Per general medicine protocol, medication was signed and sent to pharmacy. Sana Donnelly RN RTAINMENT PRODUCTION PROFESSIONAL documented in this encounter Plan of Treatment Not on filedocumented as of this encounter Visit Diagnoses Diagnosis Essential hypertension Unspecified essential hypertension documented in this encounter
--- OUTSIDE RECORDS SUMMARY | 2020-04-22 03:20 | XMS REPORT | Encounter Summary ---
Author Author [facility] Organization [facility] Address Unknown Phone Unavailable Care Team Providers Care Well Blower Name Role Phone Minesh Solis MD PCP Minesh Solis MD 100 Reason for Visit * Reason Comments Follow-up Phone Call sdvt Encounter Details Care Team Description Date Type Department Minesh Solis MD [address] [facility] [place] [address] [place] [address] Follow-up Phone Call ([facility]) 03/25/2020 Telephone Internal Medicine [address] [place] [address] Social History Date Tobacco Use [...] encounter Miscellaneous Notes * Telephone Encounter - Desiree Patel - 03/25/2020 11:46 AM CDT 03-25-2020 Social Determinants of Health Follow-up Follow-up completed via: via telephone Patient reported the following needs:food insecurity, transportation and utility service Spoke with: Patient Outcome:no active needs Resources provided: None Follow-up: Pt reports moving back to [place], [place] and is living with her son. Pt reports this is great. Pt confirms she's now receiving 36.5 caregiver hours per week noting she's not got her O2 set up but agreed to f/u with PCP/nurse abo ut this. documented in this encounter Plan of Treatment Not on filedocumented as of this encounter Visit Diagnoses Not on filedocumented in this encounter
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
--- OUTSIDE RECORDS SUMMARY | 2020-04-22 03:20 | XMS REPORT | Encounter Summary ---
Author Author [facility] Organization [facility] Address Unknown Phone Unavailable Care Team Providers Care Stair Builder Name Role Phone Minesh Solis MD PCP Minesh Solis MD 100 Reason for Visit * Reason Comments Medication Refill Encounter Details Care Team Description Date Type Department Minesh Solis MD [address] [facility] Lvl [address] [place], [place] [id number] Essential hypertension 12/20/2019 Refill Internal Medicine [address] [place] [phone] Social History Date Tobacco Use Types Packs/Day [...] Telephone Encounter - Sana Donnelly RN - 12/20/2019 9:21 AM GIMP BUTTONHOLE MACHINE OPERATOR Pharmacy requesting: Zestril LR: 09/27/19 AVA: 09/27/19 Per general medicine protocol, medication was signed and sent to pharmacy. Sana Donnelly RN BUTTONHOLE MACHINE OPERATOR documented in this encounter Plan of Treatment Not on filedocumented as of this encounter Visit Diagnoses Diagnosis Essential hypertension Unspecified essential hypertension documented in this encounter
--- OUTSIDE RECORDS SUMMARY | 2020-04-22 03:20 | XMS REPORT | Encounter Summary ---
Author Author [facility] Organization [facility] Address Unknown Phone Unavailable Care Team Providers Care Voucher Examiner Name Role Phone Minesh Solis MD PCP Minesh Solis MD 100 Reason for Visit * Reason Comments Durable Medical Equipment Encounter Details Care Team Description Date Type Department Minesh Solis MD [address] [facility] Ortho/Med [place] [address] [place] [address] Durable Medical Equipment 02/19/2020 Telephone Internal Medicine [address] [place] [address] Social History Date Tobacco Use [...] Miscellaneous Notes * Telephone Encounter - Sana Donnelly, SRIKANTH - 02/19/2020 3:00 PM CDT Negar with [employer] states she faxed request to supply patient wi th incontinent medical supplies to our office on 02/03/2020. She is requesting a call back if this was not received. She also needs a copy of the patient's most recent clinical office notes. I returned Negar's call letting her know this fax was not received. She states she got transmission that showed this did not go through. I verified our fax n krysten and asked for this to be resent. Sana Donnelly RN documented in this encounter Plan of Treatment Not on filedocumented as of this encounter Visit Diagnoses Not on filedocumented in this encounter
--- OUTSIDE RECORDS SUMMARY | 2020-04-22 03:20 | XMS REPORT | Encounter Summary ---
Author Author [facility] Organization [facility] Address Unknown Phone Unavailable Care Team Providers Care Comber Setter Name Role Phone Minesh Solis MD PCP Minesh Solis MD 100 Reason for Visit * Reason Comments Form Request Encounter Details Care Team Description Date Type Department Minesh Solis MD [address] [facility] Orth[facility]Med [facility] Lvl 4B [place], [place] [phone] Form Request 02/20/2020 Telephone Internal Medicine [address] [place] [address] Social History Date Tobacco Use [...] Telephone Encounter - Sana Donnelly RN - 02/20/2020 3:47 PM CDT Patient called to inquire if we received request from [facility] [employer]. Sh e also asked if we got anything for her 02 supplies. I returned call letting her know that we just received the request today from [facility] and once this is signed we will get sent to them. I let her know that I did not receive the 02 request. I provided my phone and fax number. She will foll ow up with the company and have them reach out to us if they need something from us. Sana Andrzej, RN documented in this encounter Plan of Treatment Not on filedocumented as of this encounter Visit Diagnoses Not on filedocumented in this encounter
[2020-04-22 03:21] LABS: CARBON DIOXIDE 22 MMOL/L (21-32)
--- OUTSIDE RECORDS SUMMARY | 2020-04-22 03:21 | XMS REPORT | Summary of Care ---
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 Final: Morbid (severe) obesity due to excess calories Final: Body mass index (BMI) 60.0-69.9, adult Final: Bariatric surgery status Final: Nicotine dependence, cigarettes, uncomplicated Discharge Disposition: Home - Attending Physician: MOOKIE BARRIOS MD Admitting Physician: MOOKIE BARRIOS MD Referring Physician: MOOKIE BARRIOS MD Vital Signs Most recent to 1 oldest [Reference Range]: Vital Signs Routine Assessment Status/Type (11/04/16 10:51 AM) Temperature 97.6 DegF [96.8-99.7 DegF] (11/04/16 10:51 AM) Temp Method Axillary (11/04/16 10:51 AM) Heart Rate 67 bpm (11/04/16 10:51 AM) Heart Rate Location Auto BP (11/04/16 10:51 AM) Respiratory Rate 16 br/min [14-20 br/min] (11/04/16 10:51 AM) Blood Pressure 122/64 mmHg [90-180/50-90 mmHg] (11/04/16 10:51 AM) NIBP MAP 78 mmHg (11/03/16 2:53 PM) NIBP MAP Calc 83 (11/04/16 10:51 AM) BP Location Arm, right (11/04/16 10:51 AM) BP Cuff Size Large (11/04/16 10:51 AM) Heart Rhythm Sinus/atrial rhythm Interpretation (11/03/16 2:30 PM) Vital Signs Note pt wears 2L O2 at home (11/03/16 12:00 AM) Problem List Condition Effective Dates Status Health Status Informan t GERD - Active Gastro-esophageal reflux disease(Probable Diagnosis) Allergies, Adverse Reactions, Alerts Substance Reaction Severity Status Ativan Hives Active Dilantin Unknown Active Latex Swelling Active Shortness of breath PHENobarbital Unknown Active Medications furosemide 40 mg oral tablet 1 TAB, PO, BID (2 times a day), 0 Refill(s) Start Date: 11/02/16 Status: Ordered hydrOXYzine pamoate 25 mg oral capsule 1 CAP, PO, TID (3 times a day), PRN Agitation/Anxiety, 0 Refill(s) Start Date: 11/02/16 Status: Ordered Results HEMATOLOGY Most recent to 1 oldest [Reference Range]: WBC [4.0-11.0 6.9 x10'3/microL x10'3/microL] (11/03/16 4:24 AM) RBC [3.90-5.60 4.47 x10'6/microL x10'6/microL] (11/03/16 4:24 AM) Hgb [12.0-16.0 g/dL] 14.5 g/dL (11/03/16 4:24 AM) Hct [35-47 %] 44 % (11/03/16 4:24 AM) Platelet [140-400 204 x10'3/microL x10'3/microL] (11/03/16 4:24 AM) MCV [81-99 fL] 99 fL (11/03/16 4:24 AM) MCH [27-34 pg] 32 pg (11/03/16 4:24 AM) MCHC [30-36 g/dL] 33 g/dL (11/03/16 4:24 AM) RDW [<=16.5 %] 14.0 % (11/03/16 4:24 AM) MPV [6.5-10.4 fL] 10.7 fL *HI* (11/03/16 4:24 AM) Neutrophils % [44-76 68 % %] (11/02/16 5:55 PM) Lymphocytes % [13-43 23 % %] (11/02/16 5:55 PM) Monocytes % [0-13 %] 8 % (11/02/16 5:55 PM) Eosinophils % [0-7 2 % %] (11/02/16 5:55 PM) Basophils % [0-3 %] 0 % (11/02/16 5:55 PM) Neutrophils Abs 5.8 x10'3/microL [1.4-7.2 (11/02/16 5:55 PM) x10'3/microL] Lymphocytes Abs 2.0 x10'3/microL [1.2-3.4 (11/02/16 5:55 PM) x10'3/microL] Monocytes Abs 0.6 x10'3/microL [0.1-0.6 (11/02/16 5:55 PM) x10'3/microL] Eosinophils Abs 0.1 x10'3/microL [0.0-0.5 (11/02/16 5:55 PM) x10'3/microL] Basophils Abs 0.0 x10'3/microL [0.0-0.2 (11/02/16 5:55 PM) x10'3/microL] CHEMISTRY Most recent to 1 oldest [Reference Range]: Sodium [136-145 142 mmol/L mmol/L] (11/03/16 4:24 AM) Potassium [3.5-5.1 4.1 mmol/L mmol/L] (11/03/16 4:24 AM) Chloride [98-107 106 mmol/L mmol/L] (11/03/16 4:24 AM) CO2 [22-29 mmol/L] 25 mmol/L (11/03/16 4:24 AM) AGAP [3-19 mmol/L] 11 mmol/L (11/03/16 4:24 AM) Glucose [70-100 114 mg/dL mg/dL] *HI* (11/03/16 4:24 AM) Glucose Level (POC) 97 mg/dL 1 [70-100 mg/dL] (11/03/16 12:53 PM) BUN [8-20 mg/dL] 7 mg/dL *LOW* (11/03/16 4:24 AM) Creatinine [0.7-1.2 0.5 mg/dL mg/dL] *LOW* (11/03/16 4:24 AM) Calcium [8.6-10.2 8.6 mg/dL mg/dL] (11/03/16 4:24 AM) Est CrCL (CG) 107.6 mL/min 2 (11/03/16 4:24 AM) GFR (CKD-EPI) >110.0 mL/min/1.73 m2 3 *NA* (11/03/16 4:24 AM) Albumin Level 3.3 g/dL [3.5-5.2 g/dL] *LOW* (11/03/16 4:24 AM) Total Protein 6.0 g/dL [6.6-8.7 g/dL] *LOW* (11/03/16 4:24 AM) Alk Phos [40-130 91 Inter. Units/L Inter. Units/L] (11/03/16 4:24 AM) AST [0-40 Units/L] 17 Units/L (11/03/16 4:24 AM) ALT(SGPT) [0-33 16 Inter. Units/L Inter. Units/L] (11/03/16 4:24 AM) Bili Total [0.0-1.2 0.6 mg/dL mg/dL] (11/03/16 4:24 AM) 1Result Comment: Meter ID: [id number] Cement Contractor: [id number] ROXY BROOKE 2Result Comment: Estimated Creatinine Clearance calculated based on the Cockcroft-Gault formula. 3Result Comment: GFR calculated based on CKD-EPI Creatinine Equation (2009). Age(years) Average GFR 20-29 116 mL/min/1.73 m^2 30-39 107 mL/min/1.73 m^2 40-49 99 mL/min/1.73 m^2 50-59 93 mL/min/1.73 m^2 60-69 85 mL/min/1.73 m^2 70+ 75 mL/min/1.73 m^2 Acceptable GFR =>60 mL/min/1.73 m^2 Chronic Kidney Disease <60 mL/min/1.73 m^2 Kidney Failure <15 mL/min/1.73 m^2 Immunizations No data available for this section Procedures No data available for this section Social History No data available for this section Functional Status No data available for this section Assessment and Plan No data available for this section Hospital Discharge Instructions No data available for this section
--- OUTSIDE RECORDS SUMMARY | 2020-04-22 03:21 | XMS REPORT | Summary of Care ---
Author Author [facility] Organization [facility] Address Unknown Phone Unavailable Encounter [facility] JENNIFER Sanchez [id number] Date(s): 11/02/16 - 11/04/16 [facility] [address] [address] Discharge Disposition: Home - Attending Physician: MOOKIE BARIROS MD Admitting Physician: MOOKIE BARRIOS MD Referring [...] (11/03/16 4:24 AM) 1Result Comment: Meter ID: [id number] Mask Former: [id number] ROXY COX 2Result Comment: Estimated Creatinine Clearance calculated based [...]
--- OUTSIDE RECORDS SUMMARY | 2020-04-22 03:21 | XMS REPORT | Summary of Care ---
Author Author [facility] Organization [facility] Address Unknown Phone Unavailable Encounter [facility] JENNIFER Sanchez [id number] Date(s): 11/02/16 - 11/04/16 [facility] [address] [address] Final: Hematemesis Final: Gastro-esophageal reflux disease [...] (11/03/16 4:24 AM) 1Result Comment: Meter ID: [id number] Taxation Economist: [id number] ROXY BROOKE 2Result Comment: Estimated Creatinine Clearance [...]
--- OUTSIDE RECORDS SUMMARY | 2020-04-22 03:21 | XMS REPORT | Summary of Care ---
Author Author [facility] Organization [facility] er Address Unknown Phone Unavailable Encounter [facility] JENNIFER Sanchez [id number] Date(s): 11/02/16 - 11/04/16 [facility] [address] [address] Discharge Disposition: Home - Attending Physician: MOOKIE [...] (11/03/16 4:24 AM) 1Result Comment: Meter ID: [id number] Apprentice Carpenter: [id number] ROXY COX 2Result Comment: Estimated Creatinine Clearance [...]
--- OUTSIDE RECORDS SUMMARY | 2020-04-22 03:21 | XMS REPORT | Summary of Care ---
Author Author [facility] Organization [facility] er Address Unknown Phone Unavailable Encounter [facility] JENNIFER Sanchez [id number] Date(s): 11/02/16 - 11/04/16 [facility] [address] [address] Discharge Disposition: Home - Attending Physician: [...] (11/03/16 4:24 AM) 1Result Comment: Meter ID: [id number] Service Center Coordinator: [id number] ROXY COX 2Result Comment: Estimated Creatinine Clearance [...]
--- OUTSIDE RECORDS SUMMARY | 2020-04-22 03:21 | XMS REPORT | Summary of Care ---
Author Author [facility] er Organization [facility] er Address Unknown Phone Unavailable Encounter [facility] JENNIFER Sanchez [id number] Date(s): 06/07/16 - 06/10/16 [facility] [address] [address] Discharge Diagnosis: Morbid obesity Discharge Disposition: Home - Attending Physician: DEWAYNE BASS MD Admitting Physician: DEWAYNE BASS MD Referring Physician: DEWAYNE BASS MD Vital Signs Most recent to 1 oldest [Reference Range]: Vital Signs Routine Assessment Status/Type (06/10/16 11:00 AM) Temperature 98.4 DegF [96.8-99.7 DegF] (06/10/16 11:00 AM) Temp Method Oral (06/10/16 11:00 AM) Heart Rate 82 bpm (06/10/16 11:00 AM) Heart Rate Location Auto BP (06/10/16 11:00 AM) Respiratory Rate 17 br/min [14-20 br/min] (06/10/16 11:00 AM) Blood Pressure 141/58 mmHg [70-180/50-90 mmHg] (06/10/16 11:00 AM) NIBP MAP Calc 86 (06/10/16 11:00 AM) NIBP Alarms set and Yes on (06/08/16 6:00 AM) BP Location Arm, left (06/10/16 11:00 AM) BP Cuff Size Large (06/10/16 11:00 AM) Heart Rhythm Sinus/atrial rhythm Interpretation (06/07/16 2:30 PM) Problem List Condition Effective Dates Status Health Status Informan t GERD - Active Gastro-esophageal reflux disease(Probable Diagnosis) Allergies, Adverse Reactions, Alerts Substance Reaction Severity Status Ativan Hives Active Dilantin Unknown Active Latex Swelling Active Shortness of breath PHENobarbital Unknown Active Medications Advair Diskus 250 mcg-50 mcg inhalation powder 1 Puff, Inhalation, BID (2 times a day), 0 Refill(s), Indication: Asthma Start Date: 05/25/16 Status: Ordered ARIPiprazole 5 mg, PO, QHS (At bedtime), 0 Refill(s), Indication: Mood Disorder Start Date: 05/31/16 Status: Ordered fluticasone 50 mcg/inh nasal spray 2 [place], Nasal, Daily, PRN Allergy Symptoms, 0 Refill(s), Indication: Allergy Sy mptoms Start Date: 05/31/16 Status: Ordered lisinopril 10 mg oral tablet 1 TAB, PO, Daily, 0 Refill(s), Indication: High Blood Pressure Start Date: 05/25/16 Status: Ordered Lovenox 40 mg/0.4 mL injectable solution = 0.4 mL, Subcut, Daily, X 7 day, # 2.8 mL, 0 Refill(s), called to pharmacy (Rx) , Indication: Clot Prevention Start Date: 06/08/16 Stop Date: 06/15/16 Status: Ordered Lyrica 100 mg oral capsule 1 CAP, PO, BID (2 times a day), 0 Refill(s) Start Date: 05/25/16 Status: Ordered Nystop 100,000 units/g topical powder 1 PAIGE, TOP, BID (2 times a day), PRN Skin Irritation, 0 Refill(s), Indication: F ungal Infection Start Date: 05/31/16 Status: Ordered omeprazole 20 mg oral delayed release capsule 1 CAP, PO, BID (2 times a day), # 60 CAP, 0 Refill(s), called to pharmacy (Rx), Indication: Reflux Start Date: 06/08/16 Status: Ordered ProAir HFA 90 mcg/inh inhalation aerosol 2 Puff, Inhalation, Q6H (Every 6 hours), PRN Wheezing, 0 Refill(s), Indication: Asthma Start Date: 05/31/16 Status: Ordered sertraline 50 mg oral tablet 1 TAB, PO, Daily, 0 Refill(s), Indication: Depression Start Date: 05/31/16 Status: Ordered silver sulfADIAZINE 1% topical cream 1 PAIGE, TOP, BID (2 times a day), PRN Skin Irritation, 0 Refill(s), Indication: O ther - See Special Instructions Start Date: 05/31/16 Status: Ordered tiZANidine 4 mg oral capsule 1 CAP, PO, TID (3 times a day), PRN as needed for muscle spasm, 0 Refill(s), Ind ication: Muscle Spasms Start Date: 05/31/16 Status: Ordered traZODone 100 mg oral tablet 1 TAB, PO, QHS (At bedtime), PRN Sleep/Insomnia, 0 Refill(s), Indication: Sleep/ Insomnia Start Date: 05/31/16 Status: Ordered Tylenol Extra Strength 500 mg/15 mL oral liquid = 15 mL, PO, Q6H (Every 6 hours), PRN as needed for pain, # 900 mL, 0 Refill(s), called to pharmacy (Rx), Indication: Moderate Pain Start Date: 06/10/16 Stop Date: 07/11/16 Status: Ordered Results HEMATOLOGY Most recent to 1 oldest [Reference Range]: WBC [4.0-11.0 8.1 x10'3/microL x10'3/microL] (06/08/16 4:09 AM) RBC [3.90-5.60 4.43 x10'6/microL x10'6/microL] (06/08/16 4:09 AM) Hgb [12.0-16.0 g/dL] 14.3 g/dL (06/08/16 4:09 AM) Hct [35-47 %] 44 % (06/08/16 4:09 AM) Platelet [140-400 166 x10'3/microL x10'3/microL] (06/08/16 4:09 AM) MCV [81-99 fL] 98 fL (06/08/16 4:09 AM) MCH [27-34 pg] 32 pg (06/08/16 4:09 AM) MCHC [32-36 g/dL] 33 g/dL (06/08/16 4:09 AM) RDW [<=14.5 %] 13.9 % (06/08/16 4:09 AM) MPV [6.5-10.4 fL] 10.2 fL (06/08/16 4:09 AM) CHEMISTRY Most recent to 1 oldest [Reference Range]: Sodium [136-145 138 mmol/L mmol/L] (06/09/16 4:25 AM) Potassium [3.5-5.1 3.7 mmol/L mmol/L] (06/09/16 4:25 AM) Chloride [98-107 98 mmol/L mmol/L] (06/09/16 4:25 AM) CO2 [22-29 mmol/L] 24 mmol/L (06/09/16 4:25 AM) AGAP [3-19 mmol/L] 17 mmol/L (06/09/16 4:25 AM) Glucose [70-100 106 mg/dL mg/dL] *HI* (06/09/16 4:25 AM) Glucose Level (POC) 96 mg/dL 2 [70-100 mg/dL] (06/10/16 12:42 PM) BUN [8-20 mg/dL] 3 mg/dL *LOW* (06/09/16 4:25 AM) Creatinine [0.7-1.2 0.4 mg/dL mg/dL] *LOW* (06/09/16 4:25 AM) Calcium [8.6-10.2 8.1 mg/dL mg/dL] *LOW* (06/09/16 4:25 AM) Est CrCL (CG) 136.0 mL/min 1 (06/09/16 4:25 AM) GFR (CKD-EPI) >110.0 mL/min/1.73 m2 3 *NA* (06/09/16 4:25 AM) Albumin Level 3.2 g/dL [3.5-5.2 g/dL] *LOW* (06/08/16 4:09 AM) Total Protein 5.8 g/dL [6.6-8.7 g/dL] *LOW* (06/08/16 4:09 AM) Hgb A1c [0.0-5.6 %] 6.8 % *HI* (05/24/16 12:31 PM) Estimated Average 148 mg/dL Glucose *NA* (05/24/16 12:31 PM) Iron [37-145 mcg/dL] 79 mcg/dL (05/24/16 12:31 PM) Magnesium [1.6-2.6 1.7 mg/dL mg/dL] (05/24/16 12:31 PM) Phos [2.50-4.50 3.10 mg/dL mg/dL] (05/24/16 12:31 PM) Prealbumin [20-40 24 mg/dL mg/dL] (05/24/16 12:31 PM) Uric Acid [2.4-5.7 6.5 mg/dL mg/dL] *HI* (05/24/16 12:31 PM) Cholesterol [<=200 227 mg/dL mg/dL] *HI* (05/24/16 12:31 PM) HDL [>=60 mg/dL] 41 mg/dL *LOW* (05/24/16 12:31 PM) LDL Direct [<=100 161 mg/dL mg/dL] *HI* (05/24/16 12:31 PM) Chol/HDL Ratio 6 *NA* (05/24/16 12:31 PM) Triglycerides [<=150 210 mg/dL mg/dL] *HI* (05/24/16 12:31 PM) Alk Phos [40-130 62 Inter. Units/L Inter. Units/L] (06/08/16 4:09 AM) AST [0-40 Units/L] 22 Units/L (06/08/16 4:09 AM) ALT(SGPT) [0-33 24 Inter. Units/L Inter. Units/L] (06/08/16 4:09 AM) Bili Total [0.0-1.2 0.7 mg/dL mg/dL] (06/08/16 4:09 AM) 1Result Comment: Estimated Creatinine Clearance calculated based on the Cockcroft-Gault formula. 2Result Comment: Meter ID: [id number] House Designer: [id number] CHRIS WOODALL 3Result Comment: GFR calculated based on CKD-EPI Creatinine Equation (2009). Age(years) Average GFR 20-29 116 mL/min/1.73 m^2 30-39 107 mL/min/1.73 m^2 40-49 99 mL/min/1.73 m^2 50-59 93 mL/min/1.73 m^2 60-69 85 mL/min/1.73 m^2 70+ 75 mL/min/1.73 m^2 Acceptable GFR =>60 mL/min/1.73 m^2 Chronic Kidney Disease <60 mL/min/1.73 m^2 Kidney Failure <15 mL/min/1.73 m^2 ENDOCRINE/TUMOR MARKER Most recent to 1 oldest [Reference Range]: T4 Free [0.9-1.7 1.4 ng/dL ng/dL] (05/24/16 12:31 PM) Vitamin B12 Lvl 684 pg/mL [191-663 pg/mL] *HI* (05/24/16 12:31 PM) Folate [>=5.0 ng/mL] >19.9 ng/mL (05/24/16 12:31 PM) 25OH Vit D Level 14.5 ng/mL *NA* (05/24/16 12:31 PM) Immunizations No data available for this section Procedures Procedure Date Related Diagnosis Body Site Laparoscopic Gastric Sleeve1 06/07/16 1auto-populated from documented surgical case Social History No data available for this section Functional Status No data available for this section Assessment and Plan No data available for this section Hospital Discharge Instructions No data available for this section
--- OUTSIDE RECORDS SUMMARY | 2020-04-22 03:21 | XMS REPORT | Summary of Care ---
Author Author [facility] er Organization [facility] er Address Unknown Phone Unavailable Encounter [facility] JENNIFER Sanchez [id number] Date(s): 11/02/16 - 11/04/16 [facility] [address] [address] Discharge Disposition: Home - Attending Physician: MOOKIE [...] (11/03/16 4:24 AM) 1Result Comment: Meter ID: [id number] Machine Plug Shaper: [id number] ROXY COX 2Result Comment: Estimated Creatinine Clearance [...]
--- OUTSIDE RECORDS SUMMARY | 2020-04-22 03:21 | XMS REPORT | Summary of Care ---
Author Author [facility] er Organization [facility] er Address Unknown Phone Unavailable Encounter [facility] JENNIFER Sanchez [id number] Date(s): 11/02/16 - 11/04/16 [facility] [address] [address] Final: Hematemesis Final: Gastro-esophageal [...] (11/03/16 4:24 AM) 1Result Comment: Meter ID: [id number] Ldr Nurse: [id number] ROXY BOROKE 2Result Comment: Estimated Creatinine Clearance calculated based [...]
--- OUTSIDE RECORDS SUMMARY | 2020-04-22 03:21 | XMS REPORT | Summary of Care ---
Author Author [facility] er Organization [facility] er Address Unknown Phone Unavailable Encounter [facility] JENNIFER Sanchez [id number] Date(s): 11/02/16 - 11/04/16 [facility] [address] [address] Discharge Disposition: Home - Attending [...] (11/03/16 4:24 AM) 1Result Comment: Meter ID: [id number] Web Interface Developer: [id number] ROXY COX 2Result Comment: Estimated Creatinine Clearance [...]
--- OUTSIDE RECORDS SUMMARY | 2020-04-22 03:21 | XMS REPORT | Summary of Care ---
Author Author [facility] er Organization [address] [facility] er Address Unknown Phone Unavailable Encounter [facility] [id number] Date(s): 11/28/15 - 11/28/[address] [place] [address] [place] [id number] [place] [address] Discharge Disposition: Home - 01 Attending Physician: DEWAYNE BASS MD Admitting Physician: DEWAYNE BASS MD Referring Physician: DEWAYNE BASS MD Vital Signs No data available for this section Problem List No data available for this section Allergies, Adverse Reactions, Alerts No data available for this section Medications No data available for this section Results No data available for this section Immunizations No data available for this section Procedures No data available for this section Social History No data available for this section Functional Status No data available for this section Assessment and Plan No data available for this section Hospital Discharge Instructions No data available for this section
--- OUTSIDE RECORDS SUMMARY | 2020-04-22 03:21 | XMS REPORT | Summary of Care ---
Author Author [facility] er Organization [facility] er Address Unknown Phone Unavailable Encounter [facility] JENNIFER Sanchez [id number] Date(s): 11/02/16 - 11/04/16 [facility] [address] [address] Final: Hematemesis Final: Gastro-esophageal reflux [...] (11/03/16 4:24 AM) 1Result Comment: Meter ID: [id number] Milk Vendor: [id number] ROXY BROOKE 2Result Comment: Estimated Creatinine Clearance [...]
--- OUTSIDE RECORDS SUMMARY | 2020-04-22 03:21 | XMS REPORT | Summary of Care ---
Author Author [facility] er Organization [facility] er Address Unknown Phone Unavailable Encounter [facility] JENNIFER Sanchez [id number] Date(s): 11/02/16 - 11/04/16 [facility] [address] [address] Final: Hematemesis Final: Gastro-esophageal reflux disease without [...] (11/03/16 4:24 AM) 1Result Comment: Meter ID: [id number] Property Management Intern: [id number] ROXY BROOKE 2Result Comment: Estimated Creatinine Clearance [...]
[2020-04-22 03:22] LABS: BILIRUBIN,TOTAL 0.4 MG/DL (0.1-1.0)
--- OUTSIDE RECORDS SUMMARY | 2020-04-22 03:22 | XMS REPORT ---
Author Author Yomaira Lima Doctor Organization [facility] Address Unknown Phone Unavailable Care Team Providers Care Art Specialist Name Role Phone Migration, Doctor Unavailable Unavailable PROBLEMS Type Condition ICD9-CM Code [id number] Code Onset Dates Condition S tatus SNOMED Code Problem Body mass index (BMI) of 60.0-69.9 in adult Z68.44 Active 135469220 Problem Chronic edema R60.9 Active 554839 008 Problem Mild persistent reactive airway disease without complicati on J45.30 Active 136539855 Problem Amphetamine and other psychostimulant dependence, unsp ecified F15.20 Active 77640796 Problem Seizure-like activity R56.9 Active 815986021 Problem Abdominal wall hernia K43.9 Active 828885068 Problem Anxiety F41.9 Active 90123011 Problem Morbid (severe) obesity due to excess calories E66 .01 Active 823524310 ALLERGIES No Information ENCOUNTERS Encounter Location Date Diagnosis [place] [address] [place] [address] Dec, Amphetamine and other psychostimulant dependence, 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 [place] [address] [place] [id number] [place] [phone] Dec, [place] [address] [place] [id number] [place] [phone] Dec, [facility] [address] [place] [id number] [place] [phone] Jan, [place] [address] [address] Jan, Anxiety F41.9 and Morbid (se lillie) obesity due to excess calories E66.01 [facility] [address] [place] [id number] [address] [place] [phone] Jan, Anxiety F41.9 and Morbid (se lillie) obesity due to excess calories E66.01 [facility] [address] [facility] [id number] [address] [place] [phone] Jan, [facility] [address] [facility] [id number] [address] [place] [phone] Dec, [facility] [address] [facility] [id number] [address] [place] [phone] Sep, [facility] [address] [facility] [id number] [address] [place] [phone] Aug, [facility] [address] [facility] [id number] [address] [place] [phone] Aug, [facility] [address] [facility] [id number] [address] [place] [phone] Jul, Abdominal wall hernia K43.9 ; Seizure-like activity R56.9 ; Chronic edema R60.9 ; Mild persistent reactive airway disease without complication J45.30 ; Anxiety F41.9 ; Body mass index (BMI) of 60.0-69.9 in adult Z68.44 and Morbid (severe) obesity due to excess calories E66.01 [facility] [address] [place] [id number] [place] [id number] Jun, [facility] [address] [facility] [id number] [address] [place] [phone] Feb, [facility] [address] [facility] [id number] [address] [place] [phone] Feb, [facility] [address] [facility] [id number] [address] [place] [phone] Jun, [facility] [address] [facility] [id number] [address] [place] [phone] Nov, [facility] [address] [facility] [id number] [address] [place] [phone] Aug, [facility] [address] [facility] [id number] [address] [place] [phone] Nov, [facility] [address] [facility] [id number] [address] [place] [phone] Nov, [facility] [address] [facility] [id number] [address] [place] [phone] Nov, [facility] [address] [facility] [id number] [address] [place] [phone] Nov, [facility] [address] [facility] [id number] [address] [place] [phone] Nov, [facility] [address] [facility] [id number] [address] [place] [phone] Oct, IMMUNIZATIONS No Known Immunizations SOCIAL HISTORY Never Assessed REASON FOR VISIT EMR-[facility] PLAN OF CARE VITAL SIGNS MEDICATIONS Unknown Medications RESULTS No Results PROCEDURES No Known procedures INSTRUCTIONS MEDICATIONS ADMINISTERED No Known Medications MEDICAL (GENERAL) HISTORY Type Description Date Medical History seizures Medical History hyperlipidemia Medical History sleep apnea - on night o2 Medical History hypertension Medical History depression/anxiety Medical History agoraphobia Surgical History 8 abdominal surgeries Surgical History appendix Surgical History x2 Surgical History laparatomoy Surgical History gastric sleeve 2016 Hospitalization History abdominal pain, hernia-[facility] 07/12/17
--- OUTSIDE RECORDS SUMMARY | 2020-04-22 03:22 | XMS REPORT ---
Author Author Yomaira Lima Doctor Organization [facility] Address Unknown Phone Unavailable Care Team Providers Care Airport Skilled Maintenance Supervisor Name Role Phone Migration, Doctor Unavailable Unavailable PROBLEMS Type Condition ICD9-CM Code [id number] Code Onset Dates Condition S tatus SNOMED Code Problem Body mass index (BMI) of 60.0-69.9 in adult Z68.44 Active 242782621 Problem Chronic edema R60.9 Active 718126 008 Problem Mild persistent reactive airway disease without complicati on J45.30 Active 396276220 Problem Amphetamine and other psychostimulant dependence, unsp ecified F15.20 Active 81798246 Problem Seizure-like activity R56.9 Active 044627429 Problem Abdominal wall hernia K43.9 Active 502552591 Problem Anxiety F41.9 Active 13275939 Problem Morbid (severe) obesity due to excess calories E66 .01 Active 645923105 ALLERGIES No Information ENCOUNTERS Encounter Location Date Diagnosis [facility] [address] [place] [address] Dec, Amphetamine and other psychostimulant dependence, 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 [place] [address] [place] [id number] [place] [phone] Dec, [place] [address] [place] [id number] [place] [phone] Dec, [facility] [address] [place] [id number] [place] [phone] Jan, [place] [address] [address] Jan, Anxiety F41.9 and Morbid (se lillie) obesity due to excess calories E66.01 [facility] [address] [place] [id number] [place] [phone] Jan, Anxiety F41.9 and Morbid (se lillie) obesity due to excess calories E66.01 [facility] [address] [facility] [id number] [address] [place] [phone] Jan, [facility] [address] [facility] [id number] [address] [place] [phone] Dec, [facility] [address] [facility] [id number] [address] [place] [phone] Sep, [facility] [address] [facility] [id number] [address] [place] [phone] Aug, [facility] [address] [facility] [id number] [address] [place] [phone] Aug, [facility] [address] [facility] [id number] [address] [place] [phone] Jul, Abdominal wall hernia K43.9 ; Seizure-like activity R56.9 ; Chronic edema R60.9 ; Mild persistent reactive airway disease without complication J45.30 ; Anxiety F41.9 ; Body mass index (BMI) of 60.0-69.9 in adult Z68.44 and Morbid (severe) obesity due to excess calories E66.01 [facility] [address] [place] [id number] [place] [id number] Jun, [facility] [address] [facility] [id number] [address] [place] [phone] Feb, [facility] [address] [facility] [id number] [address] [place] [phone] Feb, [facility] [address] [facility] [id number] [address] [place] [phone] Jun, [facility] [address] [facility] [id number] [address] [place] [phone] Nov, [facility] [address] [facility] [id number] [address] [place] [phone] Aug, [facility] [address] [facility] [id number] [address] [place] [phone] Nov, [facility] [address] [facility] [id number] [address] [place] [phone] Nov, [facility] [address] [facility] [id number] [address] [place] [phone] Nov, [facility] [address] [facility] [id number] [address] [place] [phone] Nov, [facility] [address] [facility] [id number] [address] [place] [phone] Nov, [facility] [address] [facility] [id number] [address] [place] [phone] Oct, IMMUNIZATIONS No Known Immunizations SOCIAL HISTORY Never Assessed REASON FOR VISIT [facility] [place]AN OF CARE VITAL SIGNS MEDICATIONS Unknown [...] gastric sleeve 2016 Hospitalization History abdominal pain, hernia-[facility] 07/12/17
--- OUTSIDE RECORDS SUMMARY | 2020-04-22 03:22 | XMS REPORT | Continuity of Care Document ---
Author Author [email or web address] Organization [email or web address] Address Unknown Phone Unavailable Care Team Providers Care Skirt Trimmer Name Role Phone [employer] Unavailable Unavailable Problems Problem Status Onset Date Classification Date Reported Comments Source BODY MASS INDEX (BMI) 70 OR GREATER, STARR Active 06/10/2016 [facility] PERITONEAL ADHESIONS (POSTPROCEDURAL) (P Active 06/10/2016 [facility] INCISIONAL HERNIA WITHOUT OBSTRUCTION OR Active 06/10/2016 [facility] HYPOXEMIA Active 06/10/2016 [facility] CHRONIC OBSTRUCTIVE PULMONARY DISEASE, U Active 06/10/2016 [facility] LEFT ANTERIOR FASCICULAR BLOCK Active 06/10/2016 [facility] PERSONAL HISTORY OF NICOTINE DEPENDENCE Active 06/10/2016 [facility] Discharge Diagnosis: Morbid obesity 06/09/2016 Discharge Diagnosis 06/11/2016 [facility] Medications Medication Details Route Status Patient Instructions Ordering Provider Order Date Source hydrOXYzine pamoate 25 mg oral capsule 1 CAP, PO, TID (3 times a day), PRN Agitation/Anxiety, 0 Refill(s) Active 11/02/2016 [facility] furosemide 40 mg oral tablet 1 TAB, PO, BID (2 times a day), 0 Refill(s) Active 11/02/2016 [facility] Acetaminophen 33.3 MG/ML Oral Solution [Tylenol] = 15 mL, PO, Q6H (Every 6 hours), PRN as needed for pain, # 900 mL, 0 Refill(s), called to pharmacy (Rx), Indication: Moderate Pain Active 06/10/2016 [facility] 0.4 ML Enoxaparin sodium 100 MG/ML Prefi lled Syringe [Lovenox] = 0.4 mL, Subcut, Daily, X 7 day, # 2.8 mL, 0 Refill(s), called to pharmacy (Rx), Indication: Clot Prevention Active 06/08/2016 [facility] omeprazole 20 mg oral delayed release capsule 1 CAP, PO, BID (2 times a day), # 60 CAP, 0 Refill(s), called to pharmacy (Rx), Indication: Reflux Active 06/08/2016 [facility] traZODone 100 mg oral tablet 1 TAB, PO, QHS (At bedtime), PRN Sleep/Insomnia, 0 Refill(s), Indication: Sleep/Insomnia Active 05/31/2016 [facility] tiZANidine 4 mg oral capsule 1 CAP, PO, TID (3 times a day), PRN as needed for muscle spasm, 0 Refill(s), Indication: Muscle Spasms Active 05/31/2016 [facility] Silver Sulfadiazine 10 MG/ML Topical Cream 1 PAIGE, TOP, BID (2 times a day), PRN Skin Irritation, 0 Refill(s), Indication: Other - See Special Instructions Active 05/31/2016 [facility] sertraline 50 mg oral tablet 1 TAB, PO, Daily, 0 Refill(s), Indication: Depression Active 05/31/2016 [facility] 200 ACTUAT Albuterol 0.09 MG/ACTUAT Mete red Dose Inhaler [ProAir HFA] 2 Puff, Inhalation, Q6H (Every 6 hours), PRN Wheezing, 0 Refill(s), Indication: Asthma Active 05/31/2016 [facility] Nystatin 100 UNT/MG Topical Powder [Nystop] 1 PAIGE, TOP, BID (2 times a day), PRN Skin Irritation, 0 Refill(s), Indication: Fungal Infection Active 05/31/2016 [facility] fluticasone 50 mcg/inh nasal spray 2 Storden, Nasal, Daily, PRN Allergy Symptoms, 0 Refill(s), Indication: Allergy Symptoms Active 05/31/2016 [facility] ARIPiprazole 5 mg, PO, QHS (At bedtime), 0 Refill(s), Indication: Mood Disorder Active 05/31/2016 [facility] lisinopril 10 mg oral tablet 1 TAB, PO, Daily, 0 Refill(s), Indication: High Blood Pressure Active 05/25/2016 [facility] pregabalin 100 MG Oral Capsule [Lyrica] 1 CAP, PO, BID (2 times a day), 0 Refill(s) Active 05/25/2016 [facility] Advair Diskus 250 mcg-50 mcg inhalation powder 1 Puff, Inhalation, BID (2 times a day), 0 Refill(s), Indication: Asthma Active 05/25/2016 [facility] Allergies, Adverse Reactions, Alerts Substance Category Reaction Severity Reaction type Status Date Reported Comments Source Ativan Assertion Hives Drug allergy Active [facility] Dilantin Assertion Unknown Drug allergy Active [facility] Latex Assertion Swelling, Shortness of breath Drug allergy Active [facility] PHENobarbital Assertion Unknown Drug allergy Active [facility] Immunizations No Data Provided for This Section Results Order Name Results Value Reference Range Date Interpretation Comments Source CHEMISTRY Glucose Level (POC) 96 mg/ dL 70 - 100 06/10/2016 Result Comment: Meter ID: [id number]<b r/>Core Maker: [id number] [facility] Glucose WB POC SMM Glucose Level (PO C) 96 mg/dL 70 - 100 06/10/2016 N Meter ID: [id number]
O perator: [phone] [facility] Glucose WB POC SMM Glucose Level (PO C) 107 mg/dL 70 - 100 06/10/2016 H Meter ID: [id number]
O perator: [id number] [facility] Glucose WB POC SMM Glucose Level (PO C) 88 mg/dL 70 - 100 06/09/2016 N Meter ID: [id number]
O perator: [id number] AXEL VILLALTA
[facility] Glucose WB POC SMM Glucose Level (PO C) 82 mg/dL 70 - 100 06/09/2016 N Meter ID: [id number]
O perator: [id number] AXEL VILLALTA
[facility] Glucose WB POC SMM Glucose Level (PO C) 83 mg/dL 70 - 100 06/09/2016 N Meter ID: [id number]
O perator: [phone] ELIANA CRAIG
[facility] Glucose WB POC SMM Glucose Level (PO C) 94 mg/dL 70 - 100 06/09/2016 N Meter ID: [id number]
O perator: [id number] JENNIFER PELLETIER
[facility] CHEMISTRY GFR (CKD-EPI) >110.0 mL/min/1.73 m2 06/09/2016 Result Comment: GFR calculated based on CKD-EPI Creatinine Equation (2009).
Age(years) Average GFR
20-29 116 mL/min/1.73 m^2
30-39 107 mL/min/1.73 m^2
40-49 99 mL/min/1.73 m^2
50-59 93 mL/min/1.73 m^2
60-69 85 mL/min/1.73 m^2
70+ 75 mL/min/1.73 m^2
&lt ;br/>Acceptable GFR =>60 mL/min/1.73 m^2
Chronic Kidney Disease <60 mL/min/1.73 m^2
Kidney Failure <15 mL/min/1.73 m^2 [facility] CHEMISTRY Est CrCL (CG) 136.0 mL/min 06/09/2016 Result Comment: Estimated Creatinine Tommie arance calculated based on the Cockcroft-Gault formula. [facility] CHEMISTRY BUN 3 mg/dL 8 - 20 06/09/2016 [facility] CHEMISTRY Calcium 8.1 mg/dL 8.6 - 10.2 06/09/2016 [facility] CHEMISTRY Creatinine 0.4 mg/dL 0.7 - 1.2 06/09/2016 [facility] CHEMISTRY Glucose 106 mg/dL 70 - 100 06/09/2016 [facility] CHEMISTRY AGAP 17 mmol/L 3 - 19 06/09/2016 [facility] CHEMISTRY CO2 24 mmol/L 22 - 06/09/2016 [facility] CHEMISTRY Chloride 98 mmol/L 98 - 107 06/09/2016 [facility] CHEMISTRY Potassium 3.7 mmol/L 3.5 - 5.1 06/09/2016 [facility] CHEMISTRY Sodium 138 mmol/L 136 - 145 06/09/2016 [facility] Glucose WB POC SMM Glucose Level (PO C) 115 mg/dL 70 - 100 06/09/2016 H Meter ID: [id number]
O perator: [phone] ELIANA CRAIG
[facility] Renal Funct Index GFR (CKD-EPI) >110.0 mL/min/1.73 m2 06/09/2016 NA GFR calculated based on CKD -EPI Creatinine Equation (2009).
Age(years) Average GFR
20-29 116 mL/min/1.73 m^2
30-39 107 mL/min/1.73 m^2
40-49 99 mL/min/1.73 m^2
50-59 93 mL/min/1.73 m^2
60-69 85 mL/min/1.73 m^2
70+ 75 mL/min/1.73 m^2

Acceptable GFR =>60 mL/min/1.73 m^2
Chronic Kidney Disease <60 mL/min/1.73 m^2
Kidney Failure <15 mL/min/1.73 m^2
[facility] BMP Sodium 138 mmol/L 136 - 145 06/09/2016 N [facility] BMP Potassium 3.7 mmol/L 3.5 - 5.1 06/09/2016 N [facility] BMP Chloride 98 mmol/L 98 - 107 06/09/2016 N [facility] BMP CO2 24 mmol/L 22 - 06/09/2016 N [facility] BMP AGAP 17 mmol/L 3 - 19 06/09/2016 N [facility] BMP Glucose 106 mg/dL 70 - 100 06/09/2016 H [facility] BMP BUN 3 mg/dL 8 - 20 06/09/2016 L [facility] BMP Creatinine 0.4 mg/dL 0.7 - 1.2 06/09/2016 L [facility] BMP Calcium 8.1 mg/dL 8.6 - 10.2 06/09/2016 L [facility] Glucose WB POC SMM Glucose Level (PO C) 84 mg/dL 70 - 100 06/09/2016 N Meter ID: [id number]
O perator: [phone] AXEL AMBAR
[facility] Glucose WB POC SMM Glucose Level (PO C) 88 mg/dL 70 - 100 06/08/2016 N Meter ID: [id number]
O perator: [phone] [facility] Glucose WB POC SMM Glucose Level (PO C) 106 mg/dL 70 - 100 06/08/2016 H Meter ID: [id number]
O perator: [phone] JENNIFER PELLETIER
[facility] Glucose WB POC SMM Glucose Level (PO C) 115 mg/dL 70 - 100 06/08/2016 H Meter ID: [id number]
O perator: [phone] ELIANA CRAIG
[facility] CHEMISTRY Albumin Level 3.2 g/ dL 3.5 - 5.2 06/08/2016 [facility] CHEMISTRY Total Protein 5.8 g/ dL 6.6 - 8.7 06/08/2016 [facility] CHEMISTRY ALT(SGPT) 24 [iU]/d 0 - 33. 06/08/2016 [facility] CHEMISTRY AST 22 Units/L 0 - 40 06/08/2016 [facility] er CHEMISTRY Alk Phos 62 [iU]/d 40 - 130. 06/08/2016 [facility] CHEMISTRY Bili Total 0.7 mg/dL 0.0 - 1.2 06/08/2016 [facility] HEMATOLOGY RDW 13.9 % <=14.5 % 06/08/2016 [facility] HEMATOLOGY MPV 10.2 fL 6.5 - 10.4 06/08/2016 [facility] HEMATOLOGY Platelet 166 x 10'3/microL 140 - [id number] 06/08/2016 [facility] HEMATOLOGY MCHC 33 g/dL 32 - 36 06/08/2016 [facility] HEMATOLOGY MCV 98 fL 81 - 99 06/08/2016 [facility] HEMATOLOGY MCH 32 pg 27 - 34 06/08/2016 [facility] HEMATOLOGY Hct 44 % 35 - 47 06/08/2016 [facility] HEMATOLOGY RBC 4.43 x10'6/microL 3.90 - 5.42957 06/08/2016 [facility] HEMATOLOGY Hgb 14.3 g/dL 12.0 - 16.0 06/08/2016 [facility] HEMATOLOGY WBC 8.1 x 10'3/microL 4.0 - 11.0103 06/08/2016 [facility] Glucose WB POC SMM Glucose Level (PO C) 128 mg/dL 70 - 100 06/08/2016 H Meter ID: [id number]
O perator: [phone] ELIANA CRAIG
[facility] CBC WBC 8.1 x10'3/microL 4.0 - 11.0 06/08/2016 N [facility] CBC RBC 4.43 x10'6/microL 3.90 - 5.60 06/08/2016 N [place] CBC Hgb 14.3 g/dL 12.0 - 16.0 06/08/2016 N [facility] CBC Hct 44 % 35 - 47 06/08/2016 N [facility] [place] CBC MCV 98 fL 81 - 99 06/08/2016 N [place] CBC MCH 32 pg 27 - 34 06/08/2016 N [facility] CBC MCHC 33 g/dL 32 - 36 06/08/2016 N [facility] CBC RDW 13.9 % - <=14.5 06/08/2016 N [facility] CBC Platelet 166 x10'3/microL 140 - 400 06/08/2016 N [facility] CBC MPV 10.2 fL 6.5 - 10.4 06/08/2016 N [facility] Renal Funct Index GFR (CKD-EPI) >110.0 mL/min/1.73 m2 06/08/2016 NA GFR calculated based on CKD -EPI Creatinine Equation (2009).
Age(years) Average GFR
20-29 116 mL/min/1.73 m^2
30-39 107 mL/min/1.73 m^2
40-49 99 mL/min/1.73 m^2
50-59 93 mL/min/1.73 m^2
60-69 85 mL/min/1.73 m^2
70+ 75 mL/min/1.73 m^2

Acceptable GFR =>60 mL/min/1.73 m^2
Chronic Kidney Disease <60 mL/min/1.73 m^2
Kidney Failure <15 mL/min/1.73 m^2
[facility] CMP Sodium 138 mmol/L 136 - 145 06/08/2016 N [facility] CMP Potassium 4.1 mmol/L 3.5 - 5.1 06/08/2016 N [facility] CMP Chloride 98 mmol/L 98 - 107 06/08/2016 N [facility] CMP CO2 27 mmol/L 22 - 29 06/08/2016 N [facility] CMP AGAP 14 mmol/L 3 - 19 06/08/2016 N [facility] CMP Glucose 114 mg/dL 70 - 100 06/08/2016 H [facility] CMP BUN 5 mg/dL 8 - 20 06/08/2016 L [facility] CMP Creatinine 0.4 mg/dL 0.7 - 1.2 06/08/2016 L [place] CMP Calcium 8.2 mg/dL 8.6 - 10.2 06/08/2016 L [facility] CMP Total Protein 5.8 g/dL 6.6 - 8.7 06/08/2016 L [facility] CMP Albumin Level 3.2 g/dL 3.5 - 5.2 06/08/2016 L [facility] CMP Bili Total 0.7 mg/dL 0.0 - 1.2 06/08/2016 N Samples containing indocyanine green mus t not be measured.
[facility] CMP Alk Phos 62 Inter. Units/L 40 - 130 06/08/2016 N [facility] CMP AST 22 Units/L 0 - 40 06/08/2016 N [facility] CMP ALT(SGPT) 24 Inter. Un its/L 0 - 33 06/08/2016 N [facility] Glucose WB POC SMM Glucose Level (PO C) 95 mg/dL 70 - 100 06/07/2016 N Meter ID: [id number]
O perator: [phone] BEA MANCILLA
[facility] Glucose WB POC SMM Glucose Level (PO C) 122 mg/dL 70 - 100 06/07/2016 H Meter ID: [id number]
O perator: [phone] BEA GOMEZBANNERJHONATAN
[facility] CBC WBC 11.7 x10'3/microL 4.0 - 11.0 06/07/2016 H [facility] [place] CBC RBC 3.77 x10'6/microL 3.90 - 5.60 06/07/2016 L [facility] CBC Hgb 12.4 g/dL 12.0 - 16.0 06/07/2016 N [facility] [place] CBC Hct 37 % 35 - 47 06/07/2016 N [facility] CBC MCV 99 fL 81 - 99 06/07/2016 N [facility] CBC MCH 33 pg 27 - 34 06/07/2016 N [facility] CBC MCHC 33 g/dL 32 - 36 06/07/2016 N [facility] CBC RDW 13.7 % - <=14.5 06/07/2016 N [facility] CBC Platelet 135 x10'3/microL 140 - 400 06/07/2016 L [facility] CBC MPV 10.3 fL 6.5 - 10.4 06/07/2016 N [facility] Glucose WB POC SMM Glucose Level (PO C) 129 mg/dL 70 - 100 06/07/2016 H Meter ID: [id number]
O perator: [phone] VIRAL REYNOLDS
[facility] Folate Folate >19.9 ng/mL >=5.0 05/24/2016 N [facility] Iron Serum Iron 79 mcg/dL 37 - 145 05/24/2016 N [facility] Prealbumin Prealbumin 24 mg/dL 20 - 40 05/24/2016 N [facility] Vit B12 Vitamin B12 Lvl 684 pg/m L 191 - 663 05/24/2016 H [facility] Vit D 25OH 25OH Vit D Level 14.5 ng/mL 05/24/2016 NA Increased risk of deficiency < 12 ng/ml
Increased risk of inadequacy < 16 ng/ml
Adequacy >20 ng/ml
Increased risk of excess >50 ng/ml
[facility] T4 Free T4 Free 1.4 ng/dL 0.9 - 1.7 05/24/2016 N [facility] CHEMISTRY Hgb A1c 6.8 % 0.0 - 5.6 05/24/2016 [facility] CHEMISTRY Estimated Average Glucose 148 mg/dL 05/24/2016 [facility] er CHEMISTRY Prealbumin 24 mg/dL 20 - 40 05/24/2016 [facility] er CHEMISTRY Chol/HDL Ratio 6 05/24/2016 [facility] CHEMISTRY LDL Direct 161 mg/dL <=100 mg/dL 05/24/2016 [facility] er CHEMISTRY HDL 41 mg/dL >=60 mg/dL 05/24/2016 [facility] CHEMISTRY Cholesterol 227 mg /dL <=200 mg/dL 05/24/2016 [facility] CHEMISTRY Triglycerides 210 mg /dL <=150 mg/dL 05/24/2016 [facility] CHEMISTRY Magnesium 1.7 mg/dL 1.6 - 2.6 05/24/2016 [facility] CHEMISTRY Phos 3.10 mg/dL 2.50 - 4.50 05/24/2016 [facility] CHEMISTRY Iron 79 ug/dL 37 - 145 05/24/2016 [facility] CHEMISTRY Uric Acid 6.5 mg/dL 2.4 - 5.7 05/24/2016 [facility] ENDOCRINE/TUMOR MARKER Vitamin B12 L vl 684 pg/mL 191 - 663 05/24/2016 [facility] ENDOCRINE/TUMOR MARKER 25OH Vit D Le saba 14.5 ng/mL 05/24/2016 [facility] ENDOCRINE/TUMOR MARKER Folate >19.9 ng/mL >=5.0 ng/mL 05/24/2016 [facility] ENDOCRINE/TUMOR MARKER T4 Free 1.4 ng/dL 0.9 - 1.7 05/24/2016 [facility] HgbA1c Hgb A1c 6.8 % 0.0 - 5.6 05/24/2016 H Prediabetic: 5.7-6.4%

Very High Risk: 6.0-6.4%

Diabetic: >/= 6.5%
[facility] HgbA1c Estimated Average Glucose 148 mg/dL 05/24/2016 NA [facility] Renal Funct Index GFR (CKD-EPI) >110.0 mL/min/1.73 m2 05/24/2016 NA GFR calculated based on CKD -EPI Creatinine Equation (2009).
Age(years) Average GFR
20-29 116 mL/min/1.73 m^2
30-39 107 mL/min/1.73 m^2
40-49 99 mL/min/1.73 m^2
50-59 93 mL/min/1.73 m^2
60-69 85 mL/min/1.73 m^2
70+ 75 mL/min/1.73 m^2

Acceptable GFR =>60 mL/min/1.73 m^2
Chronic Kidney Disease <60 mL/min/1.73 m^2
Kidney Failure <15 mL/min/1.73 m^2
[facility] CMP Sodium 140 mmol/L 136 - 145 05/24/2016 N [facility] CMP Potassium 4.3 mmol/L 3.5 - 5.1 05/24/2016 N [facility] CMP Chloride 97 mmol/L 98 - 107 05/24/2016 L [facility] CMP CO2 25 mmol/L 22 - 29 05/24/2016 N [facility] CMP AGAP 18 mmol/L 3 - 19 05/24/2016 N [facility] CMP Glucose 143 mg/dL 70 - 100 05/24/2016 H [facility] CMP BUN 13 mg/dL 8 - 20 05/24/2016 N [facility] CMP Creatinine 0.5 mg/dL 0.7 - 1.2 05/24/2016 L [facility] CMP Calcium 10.2 mg/dL 8.6 - 10.2 05/24/2016 N [facility] CMP Total Protein 7.3 g/dL 6.6 - 8.7 05/24/2016 N [facility] CMP Albumin Level 4.0 g/dL 3.5 - 5.2 05/24/2016 N [facility] CMP Bili Total 0.5 mg/dL 0.0 - 1.2 05/24/2016 N [facility] CMP Alk Phos 82 Inter. Units/L 40 - 130 05/24/2016 N [facility] CMP AST 18 Units/L 0 - 40 05/24/2016 N [facility] [place] CMP ALT(SGPT) 18 Inter. Un its/L 0 - 33 05/24/2016 N [facility] [place] Lipid wDir LDL Cholesterol 2 27 mg/dL - <=200 05/24/2016 H [facility] [place] Lipid wDir LDL HDL 41 mg/dL >=60 05/24/2016 L <40 Major risk factor for CHD<br/ >> or = 60 Negative risk factor
[facility] [place] Lipid wDir LDL LDL Direct 1 61 mg/dL - <=100 05/24/2016 H [facility] [place] Lipid wDir LDL Chol/HDL Ratio 6 05/24/2016 NA [facility] Lipid wDir LDL Triglycerides 2 10 mg/dL - <=150 05/24/2016 H [facility] [place] Magnesium Magnesium 1.7 mg/dL 1.6 - 2.6 05/24/2016 N Critical High for OB Patients >=7.0 mg/d l.
[facility] Phosphorus Phos 3.10 mg/dL 2.50 - 4.50 05/24/2016 N [facility] Uric Acid Uric Acid 6.5 mg/dL 2.4 - 5.7 05/24/2016 H [facility] [place] CBC WBC 9.8 x10'3/microL 4.0 - 11.0 05/24/2016 N [facility] [place] CBC RBC 5.42 x10'6/microL 3.90 - 5.60 05/24/2016 N [facility] [place] CBC Hgb 17.7 g/dL 12.0 - 16.0 05/24/2016 H [facility] [place] CBC Hct 52 % 35 - 47 05/24/2016 H [facility] [place] CBC MCV 96 fL 81 - 99 05/24/2016 N [facility] [place] CBC MCH 33 pg 27 - 34 05/24/2016 N [facility] [place] CBC MCHC 34 g/dL 32 - 36 05/24/2016 N [facility] [place] CBC RDW 14.3 % - <=14.5 05/24/2016 N [facility] [place] CBC Platelet 186 x10'3/microL 140 - 400 05/24/2016 N [facility] [place] CBC MPV 10.0 fL 6.5 - 10.4 05/24/2016 N [facility] HP Urease H pylori Negative Negative 11/29/2015 N Recent ingestion of antibiotics, bismuth , proton pump inhibitors, or sucralfate can inhibit H. pylori causing false negative results.
[facility] No data available for this section No data available for this section [address] [place] [address] Pathology Reports No Data Provided for This Section Diagnostic Reports No Data Provided for This Section Consultation Notes Results Value Date Source Operative Report Operative Report DATE OF SURGERY 06/07/2016 DATE OF 1965 PREOPERATIVE DIAGNOSIS Morbid obesity with comorbidities. POSTOPERATIVE DIAGNOSIS Morbid obesity with comorbidities. OPERATION PERFORMED 1. Laparoscopic vertical sleeve gastrec cecil. 2. Laparoscopic lysis of adhesions. 3. Esophagogastroduodenoscopy. SURGEON Dewayne Bass MD INDICATIONS A 48-year-old female with longstanding history of morbid obesity and worsening comorbidities. The patient has history of multiple complex ventral hernia repairs and recurrences. FINDINGS 1. Extensive adhesions from previous he rnia repairs. 2. Recurrent ventral hernias. DESCRIPTION OF PROCEDURE The patient was prepped and draped over the abdomen in the usual sterile fashion. A supraumbilical incision was then created and a 12 mm Optiview trocar was advanced into the peritoneal cavity. The abdomen was insufflated to a pressure of 15 mmHg and became protuberant. A left mid abdominal 5 mm port was then placed followed by a left subcostal 12 mm port. A right mid abdominal 12 mm port was then placed followed by a right subcostal 5 mm port. The patient was placed into deep reverse Trendelenburg position. A 5 mm subxiphoid transverse incision was made with the scalpel and a Ellis liver retractor was advanced into the abdomen through this puncture site and was used to retract the left lobe of the liver off the proximal stomach and gastroesophageal junction. Extensive intraabdominal adhesions were encountered due to the patient's multiple previous ventral hernia repairs. These mostly consisted of omental adhesions to the abdominal wall. A laparoscopic lysis of adhesions was thus performed for at least 1 hour until the appropriate anatomy was visualized. The pylorus was then identified and using the Harmonic scalpel, an opening was created into the lesser sac approximately 6 cm proximal to the pylorus. The short gastric vessels were then taken down in a cephalad direction heading up the full length of the greater curvature. The highest short gastric vessels were also carefully taken down and the stomach was freed completely into the angle of His. The filmy adhesions in the lesser sac were then taken down with the harmonic scalpel as well. A 34 Kazakh bougie dilator was advanced under videoscopic guidance to the pylorus. The bougie dilator was trapped immediately adjacent to the lesser curvature by using the combination of graspers and the 60 mm Kress linear stapler. A green load of the linear stapler was fired to start the gastric resection using the bougie dilator as a template along the lesser curvature. The blue loads of the linear stapler were then used and the gastric division was continued using the bougie dilator as the template along the lesser curvature. The gastric resection was then completed. Suture line hemostasis was completed with electrocautery and the suture line remained hemostatic and intact. The bougie dilator was gently removed and the suture line was again reinspected. The left mid abdominal port site was then dilated sequentially and the gastric remnant was brought out on the end of the Sharon clamp and sent to pathology. The fascial opening at this site was then closed with an 0 Vicryl suture, placed on an EndoClose device. An endoscope was then passed via the patient's mouth and down into the gastric sleeve. The entirety of the sleeve was inspected internally and found to appear normal without evidence of bleeding. The staple line was then placed under water and the sleeve was inflated. The sleeve remained airtight and hemostatic. The EGD scope was then withdrawn. A 19 Kazakh Ankur drain was placed through the left subcostal port site and laid next to the sleeve staple line. The drain was secured to the skin with a 3-0 nylon suture. Tisseel was then sprayed onto the staple line and hemostasis was confirmed. The liver retractor was then removed. The ports were removed under direct vision and remained hemostatic. The wounds were irrigated and the skin of all incisions was closed with natalia. Next, 20 mL of local anesthetic was then injected into the incisions. The procedure was then terminated and the patient tolerated it well. There were no complications. *END OF REPORT* Adriano C.T. CCalixto E: 06/09/2016 08:35 CCalixto/ Samy# [id number] Doc#: [id number] cc: [facility]09/2016 [facility] [place] Consultation Report Consultation Report [facility] Medicine Consult Patient: CLEOPATRA SHERIFF Age: 50 years Sex: Female : 1965 Associated Diagnoses: None Author: CANDICE CAMARA APRN Consultation Information Reason for consultation: Post Operative Medical management. Subjective:: Morbid Obesity with inability to lose weight, Patient is a pleasant 50 year old female who has lived with progressive obesity throughout adult life. Patient is here today for L/S Sleeve Gastrectomy after failing to maintain weight loss with diet, exercise and pharmacological therapy. Patient tolerated surgery very well. Has LUQ Abdominal pain with intensity of 7/10. Recently walked and did well. Had nausea earlier, but no current nausea or vomiting at this time. Patient denies CP or SOA. No fever or chills. No numbness, paresthesia or weakness of extremities.. Past Medical History: HEALTH HISTORY Appendectomy Patient Arthritis Patient Asthma Patient section Patient Exercise tolerance Patient Fibroma Patient Hernia Patient Hypercholesterolemia Patient Hypertension Patient Knee Patient Sleep disorder Patient , PROCEDURES 06/07/2016 10:53 . Medication List: Home Medication List Medication albuterol(ProAir HFA 90 mcg/inh inhalation aerosol)(albuterol) 2 Puff Inhalation Every 6 hours PRN Wheezing ARIPiprazole 5 mg By Mouth AT BEDTIME ascorbic acid(Vitamin C 1000 mg oral tablet)(ascorbic acid) 1,000 mg 1 TAB By Mouth DAILY aspirin Consultation Report 81 mg By Mouth DAILY fluticasone nasal(fluticasone 50 mcg/inh nasal spray)(fluticasone nasal) 2 Storden In Nose DAILY PRN Allergy Symptoms fluticasone-salmeterol(Advair Diskus 250 mcg-50 mcg inhalation powder)(fluticasone-salmeterol) 1 Puff Inhalation 2 TIMES A DAY furosemide(Lasix 40 mg oral tablet)(furosemide) 40 mg 1 TAB By Mouth 2 TIMES A DAY Comment(s): PT STATES DOES NOT ALWAYS TAKE 2X DAY hydroCHLOROthiazide 50 mg By Mouth DAILY hydrOXYzine(hydrOXYzine pamoate 25 mg oral capsule)(hydrOXYzine) 25 mg 1 CAP By Mouth 3 TIMES A DAY PRN as needed for anxiety ibuprofen 800 mg By Mouth 3 TIMES A DAY PRN as needed for pain lisinopril(lisinopril 10 mg oral tablet)(lisinopril) 10 mg 1 TAB By Mouth DAILY nicotine(Nicoderm)(nicotine) 21mg/24 HR. Patch DAILY nystatin topical(Nystop 100,000 units/g topical powder)(nystatin topical) 1 PAIGE External Use 2 TIMES A DAY PRN Skin Irritation pravastatin(pravastatin 20 mg oral tablet)(pravastatin) 20 mg 1 TAB By Mouth DAILY pregabalin(Lyrica 100 mg oral capsule)(pregabalin) 100 mg 1 CAP By Mouth 2 TIMES A DAY sertraline(sertraline 50 mg oral tablet)(sertraline) 50 mg 1 TAB By Mouth DAILY silver sulfADIAZINE topical(silver sulfADIAZINE 1% topical cream)(silver sulfADIAZINE topical) 1 PAIGE External Use 2 TIMES A DAY PRN Skin Irritation tiZANidine(tiZANidine 4 mg oral capsule)(tiZANidine) 4 mg 1 CAP By Mouth 3 TIMES A DAY PRN as needed for muscle spasm traMADol(traMADol 50 mg oral tablet)(traMADol) 50 mg 1 TAB By Mouth Every 12 hours PRN as needed for pain traZODone(traZODone 100 mg oral tablet)(traZODone) 100 mg 1 TAB By Mouth AT BEDTIME PRN Sleep/Insomnia . Allergy Profile: Allergy LIST: Dilantin Ativan Latex PHENobarbital . Family History: FAMILY HEALTH HISTORY , Diabetes, hypertension and obesity. . Social History: Consultation Report Social History: Tobacco Use Smoking Status Current some day smoker Tobacco use Last tobacco use was greater than 30 day Tobacco cessation information Recreational Drug Use Recreational Drug Use None Drug Type Last Used . Review of Systems Constitutional: Fatigue, No fever, No chills, No weakness. Respiratory: Exertional dyspnea, Snoring, No shortness of breath, No cough, No wheezing. Cardiovascular: Leg swelling, No chest pain, No palpitations. Gastrointestinal: No nausea, No vomiting Abdominal pain: Left, Upper quadrant. Genitourinary: No dysuria. Musculoskeletal: Joint pain. Back pain: In the lower region. Integumentary: No rash. Neurologic: Alert and oriented X4, No confusion, No numbness, No headache. All other systems are negative Physical Examination Intake and Output Intake and Output - 07:00 yesterday to 06:59 today VS/Measurements VITALS: BP: 154 / 77 Pulse: 82 Temp: 97.8 Resp Rate: 16 Tmax: 98.8 Wt(kg): 202.5 Pain Score: O2 Sat: 98 06/07/16 17:51 O2 Status: 5 L/min by Nasal cannula , Consultation Report BMI 76.37 General: Alert and oriented, No acute distress. Eye: Extraocular movements are intact, Normal conjunctiva. HENT: Normocephalic. Neck: Supple, Non-tender, No jugular venous distention. Respiratory: Lungs are clear to auscultation, Respirations are non-labored, Breath sounds are equal. Cardiovascular: Normal rate, Regular rhythm, No murmur. Gastrointestinal: Soft, Protuberant, dressing with a percutaneous drain to LUQ. Genitourinary: bowman in place. Integumentary: Warm, Dry, Intact. Neurologic: Alert, Oriented, Normal motor function, No focal deficits. Psychiatric: Cooperative, Appropriate mood and affect. Objective Lab Results: LABORATORY RESULTS: CBC and Plt w/o Diff 06/07/16 16:38 Instr WBC 11.7 WBC 11.7 H RBC 3.77 L HGB 12.4 HCT 37 MCV 99 MCH 33 MCHC 33 RDW 13.7 Platelet 135 L MPV 10.3 Glucose WB POC SMM 06/07/16 07:35 WB Gluc POC SMM 129 H , Lab results reviewed, Reviewed from pre admission labs. ECG interpretation: ECG Reviewed. Review / Management Diagnostic Impression: M. Obesity with comorbidities: tolerated L/S Sleeve Gastrectomy DM 2 HTN Dyslipidemia LEO dx today, Bipap use Hyperuricemia H/o seizures, no medication Currently smokes tobacco Consultation Report O2 Via NC/Bipap, titrate to keep saturation >92%/ Aggressive IS 10 times/ hr/ Albuterol Nebs q 6 hrs PRN Jimmy's/ VANDANA's/ Heparin SQ Ambulation Lovenox 40 mg sq X 1week post D/C Vasotec 1.25 mg IV Q 6 hrs PRN SBP >145 mmhg SSI of Humalog Q 4hrs Lantus 10 units sq X 1 if accu checks >180mg/dl Monitor CBC and Lytes PPI BID X 2 months Consider allopurinol post d/c, no family history D/w patient importance of smoking cessation Review meds in am for future use Case discussed with Dr. Haque. Thx!. [Electronically Signed By:] CANDICE MCKENZIE APRN On, 06/07/2016 06:23 PM [Electronically Signed by:] CANDICE CAMARA APRN, APRN On, 06/07/16 06:29 PM [Electronically Signed by:] MOOKIE HAQUE MD, MD On, 07/28/16 04:48 PM MOOKIE HAQUE MD, MD HOLLI SANDOVAL MD, MD 06/07/2016 [facility] Procedure Report Procedure Report Procedure Note [facility] Patient: CLEOPATRA SHERIFF Age: 50 years Sex: Female : 1965 Associated Diagnoses: None Author: KALI BARBOSA, DEWAYNE STEVENSON Operative Information Date of Procedure: 06/07/2016. Pre-Op Diagnosis: Morbid obesity. Post-Op Diagnosis: Same as Pre-Operative Diagnosis. Procedure: Laparoscopic Vertical Sleeve Gastrectomy, Laparoscopic Lysis of Adhesions, EGD. Indication: Morbid obesity with comorbidities. Surgeon(s): KALI BARBOSA, DEWAYNE STEVENSON. Anesthesia: General. Findings: Recurrent ventral incisional hernias, Adhesions from previous surgery. Description of Procedure: See dictation. Specimens: None. Wound Type: Clean-contaminated. Drains: Garry-Moncada. Complications: None. Estimated blood loss: Minimal. Patient Condition: Good. [Electronically Signed By:] MD KALI BARBOSA, DEWAYNE STEVENSON On, 06/07/2016 12:45 PM 06/07/2016 [facility] [place] Discharge Summaries Results Value Date Source Discharge Summary DATE OF ADMI SSION: 06/07/16 DATE OF DISCHARGE: 06/10/16 ADMITTING AND DISCHARGING PHYSICIAN: Dewayne Bass MD CONSULTING PHYSICIAN: Mookie Haque MD, to address medical problems and adjust home medications. REASON FOR ADMISSION: Status post bariatric surgery (laparoscopic sleeve gastrectomy) FINAL DIAGNOSIS: Morbid Obesity with comorbidities. PATIENT PROFILE: This is a 50 year-old female patient with a longstanding history of morbid obesity and worsening comorbidities. HOSPITAL COURSE: This patient underwent the bariatric operation and had a satisfactory postoperative course. On postoperative day #1, the patient was tolerating a bariatric liquid diet. Their pain was controlled on oral medications. They ambulated without difficulty and were able to void spontaneously. She was maintained on oxygen via nasal cannula due to low O2 saturations. The oxygen was gradually weaned as appropriate and arrangements were made for home O2 therapy via nasal cannula at 1-2 liters. She was also diuresed and this improved her oxygenation. The JANE drain was removed prior to discharge. All of the patient's vital signs, physical exam findings and lab results were within expected limits and they were deemed fit for discharge on POD #3. DISCHARGE INSTRUCTIONS: The patient was discharged home in stable condition. The patient is to continue on a bariatric liquid diet as instructed. They should resume light activity as tolerated. The patient received teaching for application of Lovenox injections at home. The patients medications were reconciled and necessary adjustments were made by Dr. Haque. They were given a prescription for Oxycodone and Pr ilosec. The patient will follow up in the clinic in 1 week. 06/11/2016 [facility] [place] History and Physicals Results Value Date Source History and Physical History a nd Physical DATE OF SURGERY 06/07/2016 DATE OF 1965 CHIEF COMPLAINT Inability to control her weight. HISTORY OF PRESENT ILLNESS This is a 50-year-old female who has been overweight for most of her adult life and has been trying to lose weight for most of that time without success. She has been contemplating weight loss surgery for the past few years and wishes to proceed at this time. The patient has multiple comorbidities as a result of her obesity and has tried multiple medical weight loss regimens without skilled nursing success. She has also tried weight loss medications such as phentermine. The patient has been able to preoperatively lose approximately 10% of her body weight going from an initial weight of 489 pounds to 448 pounds decreasing her BMI from 87 to 79. She has no other complaints at this time. PAST MEDICAL HISTORY Hyperlipidemia, hypertension, peripheral edema, joint pain, low back pain, anxiety, depression, morbid obesity, and urinary incontinence. PAST SURGICAL HISTORY Appendectomy, x2, exploratory laparotomy for diverticulitis with a sigmoid colectomy, multiple ventral hernia repairs with wound dehiscence requiring mesh placement and removals and biologic mesh use. FAMILY HISTORY Diabetes, hypertension and obesity. SOCIAL HISTORY Previous smoker, recently quit. Used to smoke 1 pack a day, denies alcohol or illicit drug use. CURRENT MEDICATIONS Reconciled and reviewed. ALLERGIES LATUDA, ATIVAN, LATEX, SOY, AND PHENOBARBITAL. REVIEW OF SYSTEMS A complete 14-point review of systems was performed and was overall negative except as per HPI. PHYSICAL EXAMINATION GENERAL: Fully alert and oriented female patient in no acute distress. VITAL SIGNS: Within normal limits. Height 5 feet 3 inches. Current weight 448 pounds, BMI 79. HEAD: Normocephalic. NECK: Supple. CHEST: Clear to auscultation bilaterally. HEART: Regular rate and rhythm. ABDOMEN: Obese, soft, nontender, nondistended. Multiple surgical scars. EXTREMITIES: No clubbing, cyanosis or edema. SKIN: Warm, pink and dry. NEUROLOGIC: Cranial nerves II-XII are grossly intact. PSYCHIATRIC: Appropriate mood and affect. DIAGNOSTIC AND RADIOLOGIC STUDIES The patient underwent an EGD showing no masses, ulcerations, lesions or polyps and test for H. pylori was negative. She also underwent an EKG which showed a left anterior fascicular block. LABORATORY DATA CBC with elevated hemoglobin of 17.7 and elevated hematocrit of 52. BMP overall within normal limits. Uric acid elevated at 6.5. Lipid studies with an elevated total cholesterol of 227, elevated LDL of 161, and elevated triglycerides 210. Hemoglobin A1c elevated at 6.8%. Thyroid studies normal. CONSULTS The patient consulted with a bariatric dietitian and participated in a preoperative education class. She also consulted with Dr. Jovan Sandoval, psychologist, and was deemed an appropriate candidate for weight loss surgery. The patient also consulted with Dr. Antonino Mueller and obtained pulmonary clearance for bariatric surgery. DIAGNOSTIC IMPRESSION Morbid obesity with comorbidities. PLAN After discussing the options with the patient, she wishes to undergo a laparoscopic vertical sleeve gastrectomy. The patient was explained the procedure in detail and participated in preoperative education of the risks and benefits of the surgery including but not limited to bleeding, hematoma, injury to surrounding structures, infection, abscess, sepsis, staple line dehiscence, gastric leak, gastric fistula, obstruction, stricture, nausea, reflux, inadequate weight loss, delayed weight regain, risk of anesthesia, conversion to open procedure, and cardiovascular risks such as heart attack, blood clots, stroke and . All questions were answered to her satisfaction and she wishes to proceed with surgery. *END OF REPORT* KIM/ C.T. C.T. E: 06/04/2016 16:35 C.T./ Conf# [id number] Doc#: [id number] cc: 06/04/2016 [facility] Vital Signs Vital Sign Value Date Comments Source NIBP MAP Calc 86 06/10/2016 [facility] Heart Rate Location Auto BP ( 11:00 AM) 06/10/2016 [facility] Inet NIBP Systolic 141 mm[Hg] 06/10/2016 [facility] Inet NIBP Diastolic 58 mm[Hg] 06/10/2016 [facility] Respiratory Rate 17 br/min 06/10/2016 [facility] BP Location Arm, left (06/10/16 11:00 AM) 06/10/2016 [facility] BP Cuff Size Large (06/10/16 11 :00 AM) 06/10/2016 [facility] Heart Rate 82 bpm 06/10/2016 [facility] Temp Method Oral (06/10/16 11:0 0 AM) 06/10/2016 [facility] Temperature 98.4 [degF] 06/10/2016 [facility] Vital Signs Status/Type Routin e Assessment (06/10/16 11:00 AM) 06/10/2016 [facility] NIBP Alarms set and on Yes ( 6:00 AM) 06/08/2016 [facility] Heart Rhythm Interpretation Si nus/atrial rhythm (06/07/16 2:30 PM) 06/07/2016 [facility] Encounters Location Location Details Encounter Type Encounter Number Reason For Visit Attending Provider ADM Date DC Date Status Source 006 006 I [id number] MORBID OBESITY DEWAYNE BASS MD 06/07/2016 06/10/2016 Active [facility] 006 006 O [id number] HEATHER BASS MD 05/24/2016 05/24/2016 [facility] Non-Patient [id number] DEWAYNE BASS MD 11/28/2015 11/29/[address] [place] [address] 006 006 N [id number] HEATHER BASS MD 11/28/2015 11/28/2015 [facility] 006 006 # [id number] DX INT DEWAYNE BASS MD 08/04/2015 [facility] Procedures Procedure Code Date Perfomer Comments Source Laparoscopic Gastric Sleeve<sup>1</sup> 06/07/2016 auto- populated from documented surgical case [facility] Plan of Care No Data Provided for This Section Social History No Data Provided for This Section Assessment and Plan No Data Provided for This Section Family History No Data Provided for This Section Advance Directives No Data Provided for This Section Functional Status No Data Provided for This Section
--- OUTSIDE RECORDS SUMMARY | 2020-04-22 03:22 | XMS REPORT ---
Author Author Yomaira NIETO Organization [facility] Address [address] [place] [address] Care Team Providers [employer] Manager Name Role Phone NORMA NIETO Unavailable PROBLEMS Type Condition ICD9-CM Code AEI60-HG Code Onset Dates Condition S tatus SNOMED Code Problem Mild persistent reactive airway disease without complicati on J45.30 Active 267752719 Problem Morbid (severe) obesity due to excess calories E66 .01 Active 937163843 Problem Anxiety F41.9 Active 78229185 Problem Chronic edema R60.9 Active 322701 008 Problem Body mass index (BMI) of 60.0-69.9 in adult Z68.44 Active 697890514 Problem Abdominal wall hernia K43.9 Active 986433641 Problem Seizure-like activity R56.9 Active 788154882 ALLERGIES No Information ENCOUNTERS Encounter Location Date Diagnosis [facility] [id number] [place] [id number] Jan, [facility] [address] [phone] Jan, Anxiety F41.9 and Morbid (se lillie) obesity due to excess calories E66.01 [facility] [address] [id number] [address] [place] [phone] Jan, Anxiety F41.9 and Morbid (se lillie) obesity due to excess calories E66.01 [facility] [address] [id number] [address] [place] [phone] Jan, [facility] [address] [id number] [address] [place] [phone] Dec, [facility] [address] [phone] Sep[facility] [address] [facility] [id number] [address] [place] [phone] Aug, [facility] [address] [facility] [id number] [address] [place] [phone] Aug, [facility] [address] [facility] [id number] [address] [place] [phone] Jul, Abdominal wall hernia K43.9 ; Seizure-like activity R56.9 ; Chronic edema R60.9 ; Mild persistent reactive airway disease without complication J45.30 ; Anxiety F41.9 ; Body mass index (BMI) of 60.0-69.9 in adult Z68.44 and Morbid (severe) obesity due to excess calories E66.01 [facility] [id number] [place] [id number] Jun, [facility] [address] [facility] [id number] [address] [place] [phone] Feb, [facility] [address] [id number] [address] [place] [phone] Feb, [facility] [address] [facility] [id number] [address] [place] [phone] Jun, [facility] [address] [facility] [id number] [address] [place] [phone] Nov, [facility] [address] [facility] [id number] [address] [place] [phone] Aug, [facility] [address] [id number] [address] [place] [phone] Nov, [facility] [address] [facility] [id number] [address] [place] [phone] Nov, [facility] [address] [facility] [id number] [address] [place] [phone] Nov, [facility] [address] [facility] [id number] [address] [place] [phone] Nov, [facility] [address] [facility] [id number] [address] [place] [phone] Nov, [facility] [address] [facility] [id number] [address] [place] [phone] Oct, IMMUNIZATIONS No Known Immunizations SOCIAL HISTORY Never Assessed REASON FOR VISIT Requests return call PLAN OF CARE VITAL SIGNS MEDICATIONS Unknown [...] gastric sleeve 2016 Hospitalization History abdominal pain, hernia-[facility] 07/12/17
--- OUTSIDE RECORDS SUMMARY | 2020-04-22 03:22 | XMS REPORT ---
Author Author Yomaira Lima Doctor Organization [facility] Address Unknown Phone Unavailable Care Team Providers Care Agriculture Teacher Name Role Phone Migration, Doctor Unavailable Unavailable PROBLEMS Type Condition ICD9-CM Code [id number] Code Onset Dates Condition S tatus SNOMED Code Problem Body mass index (BMI) of 60.0-69.9 in adult Z68.44 Active 766629460 Problem Chronic edema R60.9 Active 022114 008 Problem Mild persistent reactive airway disease without complicati on J45.30 Active 442101155 Problem Amphetamine and other psychostimulant dependence, unsp ecified F15.20 Active 18715043 Problem Seizure-like activity R56.9 Active 445430236 Problem Abdominal wall hernia K43.9 Active 302988712 Problem Anxiety F41.9 Active 09746790 Problem Morbid (severe) obesity due to excess calories E66 .01 Active 264454701 ALLERGIES Substance Reaction Event Type Date Status Phenobarbital Unknown Drug Allergy Feb, Active Latex Unknown Non Drug Allergy Feb, Active ENCOUNTERS Encounter Location Date Diagnosis [place] [address] [place] [address] Dec, Amphetamine and other psychostimulant dependence, 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 [place] [id number] [place] [phone] Dec, [place] [address] [place] [id number] [place] [phone] Dec, [place] [address] [place] [id number] [place] [phone] Jan, [place] [address] [place] [id number] [place] [phone] Jan, Anxiety F41.9 and Morbid (se lillie) obesity due to excess calories E66.01 [place] [address] [place] [id number] [place] [phone] Jan, Anxiety F41.9 and Morbid (se lillie) obesity due to excess calories E66.01 [facility] [address] [facility] [id number] [address] [place] [phone] Jan, [facility] [address] [facility] [id number] [address] [place] [phone] Dec, [facility] [address] [facility] [id number] [address] [place] [phone] Sep, [facility] [address] [facility] [id number] [address] [place] [phone] Aug, [facility] [address] [facility] [id number] [address] [place] [phone] Aug, [facility] [address] [place] [id number] [address] [place] [phone] Jul, Abdominal wall hernia K43.9 ; Seizure-like activity R56.9 ; Chronic edema R60.9 ; Mild persistent reactive airway disease without complication J45.30 ; Anxiety F41.9 ; Body mass index (BMI) of 60.0-69.9 in adult Z68.44 and Morbid (severe) obesity due to excess calories E66.01 [facility] [address] [place] [id number] [place] [id number] Jun, [facility] [address] [facility] [id number] [address] [place] [phone] Feb, [facility] [address] [facility] [id number] [address] [place] [phone] Feb, [facility] [address] [facility] [id number] [address] [place] [phone] Jun, [facility] [address] [facility] [id number] [address] [place] [phone] Nov, [facility] [address] [facility] [id number] [address] [place] [phone] Aug, [facility] [address] [facility] [id number] [address] [place] [phone] Nov, [facility] [address] [facility] [id number] [address] [place] [phone] Nov, [facility] [address] [facility] [id number] [address] [place] [phone] Nov, [facility] [address] [facility] [id number] [address] [place] [phone] Nov, [facility] [address] [facility] [id number] [address] [place] [phone] Nov, [facility] [address] [facility] [id number] [address] [place] [phone] Oct, IMMUNIZATIONS No Known Immunizations SOCIAL HISTORY Never Assessed REASON FOR VISIT EMR-[facility] PLAN OF CARE VITAL SIGNS MEDICATIONS Medication Instructions Dosage Frequency Start Date End Date Duration S tatus Geodon 80 mg SI cap(s) orally Once daily. 2011 Active Ambien 10 mg SI tab(s) orall y once a day (at bedtime) Every other night. Nov, Active Lexapro 20 mg SI tab(s) orally once a day Nov, Active trazodone 300 mg SI tab(s) orall y once a day (at bedtime) Every other night. Nov, Active Ventolin HFA CFC free 90 mcg/inh SI puff(s) inhal ed 4 times a day Nov, Active Naprosyn 500 mg SI tab(s) orally 2 times a day Nov, Active Neurontin 300 mg SI cap(s) orally 3 times a day Nov, Active Hydrochlorothiazide 50 mg SI tab(s) orally once a day Nov, Active Lisinopril 20 mg SI tab(s) orally once a day 2011 Active Vistaril pamoate 25 mg SI tab(s) orally 4 times a day Nov, Active RESULTS No Results PROCEDURES No Known procedures INSTRUCTIONS MEDICATIONS ADMINISTERED No Known Medications MEDICAL (GENERAL) HISTORY Type Description Date Medical History seizures Medical History hyperlipidemia Medical History sleep apnea - on night o2 Medical History hypertension Medical History depression/anxiety Medical History agoraphobia Surgical History 8 abdominal surgeries Surgical History appendix Surgical History x2 Surgical History laparatomoy Surgical History gastric sleeve 2015 Hospitalization History abdominal pain, hernia-[facility] 07/12/17
--- OUTSIDE RECORDS SUMMARY | 2020-04-22 03:22 | XMS REPORT | Referral Summary ---
Author Author [facility] Organization [facility] Address Unknown Phone Unavailable Care Team Providers Care Diabetes Clinical Manager Name Role Phone IrmaMinesh Moisés PCP Encounter Hospital Date(s): 10/07/19 - 10/07/19 [facility] [address] [place], [place] [address] [phone] Encounter Diagnosis Generalized abdominal pain (Discharge Diagnosis) - 10/07/19 Discharge Disposition: 01 O/P Home Attending Physician: Deniz Lin MD Admitting Physician: Deniz Lin MD Vital Signs 1 2 3 Most recent to oldest [Reference Range]: 5.38 ft (10/07/19 11:44 AM) Height FT 164 cm (10/07/19 11:44 AM) Height 395.73 lb (10/07/19 11:44 AM) Weight LBS 118 / 58 (10/07/19 3:02 PM) 150 / 74 (10/07/19 2:20 PM) 124 / 66 (10/07/19 1:43 PM) Blood Pressure Display 66.74 (10/07/19 11:49 AM) BMI 70 bpm (10/07/19 3:30 PM) 83 bpm (10/07/19 3:00 PM) 76 bpm (10/07/19 2:15 PM) Peripheral Pulse Rate [60-100 bpm] 36.5 DegC (10/07/19 11:44 AM) Temperature Oral [35.8-37.3 DegC] Problem List No data available for this section Allergies, Adverse Reactions, Alerts Substance Reaction Severity Status sulfa drugs Active Dilantin Active Ativan Active Contrast Dye Active Latex Active Latuda Active PHENobarbital Active Medications ARIPiprazole 0 Refill(s) Start Date: 10/07/19 Status: Ordered atorvastatin 0 Refill(s) Start Date: 10/07/19 Status: Ordered furosemide 0 Refill(s) Start Date: 10/07/19 Status: Ordered gabapentin 300 mg oral capsule 300 mg = 1 cap, PO, q8hr, 0 Refill(s) Start Date: 09/23/19 Status: Ordered hydrochlorothiazide 25 mg oral tablet 25 mg = 1 tab, PO, qAM, 0 Refill(s) Start Date: 09/23/19 Status: Ordered lisinopril 20 mg, PO, qDay, # 60 tab, 0 Refill(s) Start Date: 09/23/19 Status: Ordered metFORMIN 500 mg, PO, BIDac, 0 Refill(s) Start Date: 09/23/19 Status: Ordered pantoprazole 20 mg, PO, BID, 0 Refill(s) Start Date: 10/07/19 Status: Ordered sertraline 0 Refill(s) Start Date: 10/07/19 Status: Ordered Symbicort 80/4.5 2 puff, INH, BID, # 6.9 g, 0 Refill(s) Start Date: 09/23/19 Status: Ordered Results Hematology Most recent to 1 oldest [Reference Range]: WBC [4.0-10.5 k/uL] 6.0 k/uL (10/07/19 12:28 PM) RBC [4.00-5.40 M/uL ] 4.76 M/uL (10/07/19 12:28 PM) Hgb [12.0-16.0 g/dL] 15.0 g/dL (10/07/19 12:28 PM) HCT [37.0-47.0 %] 46.1 % (10/07/19 12:28 PM) MCV [78.0-100.0 fL] 96.8 fL (10/07/19 12:28 PM) MCH [27.0-31.0 pg] 31.5 pg *HI* (10/07/19 12:28 PM) MCHC [32.0-36.0 32.5 g/dL g/dL] (10/07/19 12:28 PM) RDW [11.5-14.0 %] 13.2 % (10/07/19 12:28 PM) Platelet Count 204 k/uL [150-450 k/uL] (10/07/19 12:28 PM) MPV [8.0-11.7 fL] 9.5 fL (10/07/19 PM) Nucleated RBC 0.0 /uL Absolute [0.0-0.0 (10/07/19: PM) /uL] Neutrophil % 64.2 % [43.0-65.0 %] (10/07/19: PM) Lymphocyte % 26.1 % [20.5-45.0 %] (10/07/19: PM) Monocyte % [5.5-11.7 7.7 % %] (10/07/19 PM) Eosinophil % 1.2 % [0.9-2.9 %] (10/07/19 PM) Basophil % [0.2-1.0 0.5 % %] (10/07/19 PM) Neutrophil Absolute 3830 /uL [0970-7452 /uL] (10/07/19 PM) Lymphocyte Absolute 1560 /uL [840-4830 /uL] (10/07/19: PM) Monocyte Absolute 460 /uL [240-1260 /uL] (10/07/19 PM) Eosinophil Absolute 70 /uL [40-315 /uL] (10/07/19: PM) Basophil Absolute 30 /uL [0-105 /uL] (10/07/19 PM) Differential? Auto (10/07/19 PM) Chemistry Most recent to 1 oldest [Reference Range]: Sodium [135-145 142 mmol/L mmol/L] (10/07/19: PM) Potassium [3.6-5.0 4.6 mmol/L mmol/L] (10/07/19 PM) Chloride [101-111 106 mmol/L mmol/L] (10/07/19: PM) CO2 [21-31 mmol/L] 26 mmol/L (10/07/19 PM) Anion Gap 10 mmol/L *NA* (10/07/19 PM) Glucose Level 123 mg/dL [70-100 mg/dL] *HI* (10/07/19: PM) Blood Urea Nitrogen 9 mg/dL [6-20 mg/dL] (10/07/19 PM) Creatinine [0.5-1.2 0.4 mg/dL mg/dL] *LOW* (10/07/19 12:28 PM) Calcium [8.5-10.5 8.6 mg/dL mg/dL] (10/07/19 12:28 PM) Total Protein 6.3 g/dL [6.0-8.0 g/dL] (10/07/19 12:28 PM) Albumin [3.2-5.5 3.6 g/dL g/dL] (10/07/19 12:28 PM) Alk Phos [42-121 108 unit/L unit/L] (10/07/19 12:28 PM) AST [10-42 unit/L] 12 unit/L (10/07/19 12:28 PM) ALT [10-60 unit/L] 12 unit/L (10/07/19 12:28 PM) Bilirubin Total 0.5 mg/dL [0.2-1.0 mg/dL] (10/07/19 12:28 PM) Lipase [8-57 unit/L] 14 unit/L (10/07/19 12:28 PM) eGFR Non-Afr. >60 [place]ese [>=60] (10/07/19 12:28 PM) eGFR >60 [place] [>=60] (10/07/19 12:28 PM) Lactic Acid Level 1.0 mmol/L [0.5-2.0 mmol/L] (10/07/19 12:28 PM) Immunizations No data available for this section Procedures Procedure Date Related Diagnosis Body Site Status Collection of venous blood by venipuncture 10/07/19 Completed Collection of venous blood by venipuncture 10/07/19 Completed Collection of venous blood by venipuncture 10/07/19 Completed Social History Social History Type Response Smoking Status Former smoker1 entered on: 09/23/19 1Quit 6 months ago Functional Status COGNITIVE 10/07/19 Orientation Oriented x 3 Assessment and Plan No data available for this section Hospital Discharge Instructions Patient Education Abdominal Pain, Adult Follow Up Care 10/07/2019 11:37:42 With: Return to Emergency Department Address: Unknown When: As Needed Comments: If symptoms worsen or concern you in any way Thank you for allowing us to care for you. Please carefully read the below instr uctions: FOLLOW UP INSTRUCTIONS: Please call to make an appointment with your doctor or the doctor you were refer red to as soon as possible. It is your responsibility to make these appointments . Followup is a very important part of taking care of your health issues. If your symptoms should worsen in any way, please come back to the Emergency Dep artment, as conditions can change. XRAYS, CT SCANS, AND ULTRASOUNDS: Radiology tests done in the Emergency Department require a radiologist to review and make final interpretations, and one may not be immediately available at the time of your care. In these cases, preliminary interpretations are made by your emergency physician at the time of your care. Therefore, be sure to follow up r egarding final radiology reports with your doctor or the ER staff during busines s hours. MEDICATION WARNING: It is possible that you received medication in the Emergency Department for the treatment of pain and/or nausea. These medications often cause side effects whic h would make it dangerous for you to drive a vehicle or operate machinery. Some of the most commonly used medications are: Morphine Fentanyl Dilaudid/Hydromorphone Mellen/Hydrocodone Ultram/Tramadol Tylenol 3/Codeine Compazine/Prochlorperazine Phenergan/Promethazine Benadryl/Diphenhydramine Ativan/Lorazepam Valium/Diazepam If you received any of these medications, or any medication in the ER that you a re unfamiliar with, PLEASE DO NOT DRIVE OR OPERATE MACHINERY for a minimum of 12 hours or until you have spoken with your medical provider in the ER to ensure t hat it is safe. With: Minesh Solis Address: [address] [place] [address] [address] [place] [phone] Business (1) When: This week
--- OUTSIDE RECORDS SUMMARY | 2020-04-22 03:22 | XMS REPORT | Referral Summary ---
Author Author [facility] Organization [facility] Address Unknown Phone Unavailable Encounter Hospital Date(s): 09/23/19 - 09/23/[address] [facility] [address] [place], [place] [address] Encounter Diagnosis Respiratory difficulty (Discharge Diagnosis) - 09/23/19 Left-sided weakness (Discharge Diagnosis) - 09/23/19 Diffuse abdominal pain (Discharge Diagnosis) - 09/23/19 Discharge Disposition: 01 O/P Home Attending Physician: Fco Larson MD Admitting Physician: Fco Larson MD Vital Signs 1 2 3 Most recent to oldest [Reference Range]: 5.31 ft (09/23/19 12:13 PM) Height FT 162 cm (09/23/19 12:13 PM) Height 386.25 lb (09/23/19 12:13 PM) Weight LBS 126 / 72 (09/23/19 7:14 PM) 151 / 84 (09/23/19 6:09 PM) 156 / 84 (09/23/19 5:13 PM) Blood Pressure Display 66.76 (09/23/19 1:54 PM) 67.20 (09/23/19 12:36 PM) BMI 91 bpm (09/23/19 7:14 PM) 97 bpm (09/23/19 6:36 PM) 87 bpm (09/23/19 6:09 PM) Peripheral Pulse Rate [60-100 bpm] 36.7 DegC (09/23/19 12:13 PM) Temperature Oral [35.8-37.3 DegC] Problem List No data available for this section Allergies, Adverse Reactions, Alerts Substance Reaction Severity Status sulfa drugs Active Ativan Active Contrast Dye Active Latex Active PHENobarbital Active Medications gabapentin 300 mg oral capsule 300 mg [...] 0 Refill(s) Start Date: 09/23/19 Status: Ordered Symbicort 80/4.5 2 puff, INH, BID, # 6.9 g, 0 Refill(s) Start Date: 09/23/19 Status: Ordered Results Hematology Most recent to 1 oldest [Reference Range]: WBC [4.0-10.5 k/uL] 7.5 k/uL (09/23/19 1:15 PM) RBC [4.00-5.40 M/uL ] 4.68 M/uL (09/23/19 1:15 PM) Hgb [12.0-16.0 g/dL] 14.9 g/dL (09/23/19 1:15 PM) HCT [37.0-47.0 %] 44.4 % (09/23/19 1:15 PM) MCV [78.0-100.0 fL] 94.9 fL (09/23/19 1:15 PM) MCH [27.0-31.0 pg] 31.8 pg *HI* (09/23/19 1:15 PM) MCHC [32.0-36.0 33.6 g/dL g/dL] (09/23/19 1:15 PM) RDW [11.5-14.0 %] 12.6 % (09/23/19 1:15 PM) Platelet Count 208 k/uL [150-450 k/uL] (09/23/19 1:15 PM) MPV [8.0-11.7 fL] 9.3 fL (09/23/19 1:15 PM) Nucleated RBC 0.0 /uL Absolute [0.0-0.0 (09/23/19 1:15 PM) /uL] Neutrophil % 72.7 % [43.0-65.0 %] *HI* (09/23/19 1:15 PM) Lymphocyte % 19.0 % [20.5-45.0 %] *LOW* (09/23/19 1:15 PM) Monocyte % [5.5-11.7 6.7 % %] (09/23/19 1:15 PM) Eosinophil % 0.8 % [0.9-2.9 %] *LOW* (09/23/19 1:15 PM) Basophil % [0.2-1.0 0.5 % %] (09/23/19 1:15 PM) Neutrophil Absolute 5430 /uL [7119-0692 /uL] (09/23/19 1:15 PM) Lymphocyte Absolute 1420 /uL [840-4830 /uL] (09/23/19 1:15 PM) Monocyte Absolute 500 /uL [240-1260 /uL] (09/23/19 1:15 PM) Eosinophil Absolute 60 /uL [40-315 /uL] (09/23/19 1:15 PM) Basophil Absolute 40 /uL [0-105 /uL] (09/23/19 1:15 PM) Differential? Auto (09/23/19 1:15 PM) Chemistry Most recent to 1 oldest [Reference Range]: Sodium [135-145 141 mmol/L mmol/L] (09/23/19 1:15 PM) Potassium [3.6-5.0 4.4 mmol/L mmol/L] (09/23/19 1:15 PM) Chloride [101-111 105 mmol/L mmol/L] (09/23/19 1:15 PM) CO2 [21-31 mmol/L] 25 mmol/L (09/23/19 1:15 PM) Anion Gap 11 mmol/L *NA* (09/23/19 1:15 PM) Glucose Level 116 mg/dL [70-100 mg/dL] *HI* (09/23/19 1:15 PM) Blood Urea Nitrogen 6 mg/dL [6-20 mg/dL] (09/23/19 1:15 PM) Creatinine [0.5-1.2 0.5 mg/dL mg/dL] (09/23/19 1:15 PM) Calcium [8.5-10.5 8.8 mg/dL mg/dL] (09/23/19 1:15 PM) Total Protein 6.6 g/dL [6.0-8.0 g/dL] (09/23/19 1:15 PM) Albumin [3.2-5.5 3.7 g/dL g/dL] (09/23/19 1:15 PM) Alk Phos [42-121 101 unit/L unit/L] (09/23/19 1:15 PM) AST [10-42 unit/L] 18 unit/L (09/23/19 1:15 PM) ALT [10-60 unit/L] 14 unit/L (09/23/19 1:15 PM) Bilirubin Total 0.5 mg/dL [0.2-1.0 mg/dL] (09/23/19 1:15 PM) eGFR Non-Afr. >60 [place] [>=60] (09/23/19 1:15 PM) eGFR >60 [place] [>=60] (09/23/19 1:15 PM) Cardiac Studies Most recent to 1 oldest [Reference Range]: Myoglobin [0-70 69 ng/mL ng/mL] (09/23/19 1:15 PM) Troponin T <0.01 ng/mL [0.00-0.02 ng/mL] (09/23/19 1:15 PM) Coagulation Most recent to 1 oldest [Reference Range]: D-Dimer [0.27-0.42 0.46 ug/mL FEU ug/mL FEU] *HI* (09/23/19 1:14 PM) Urine Studies Most recent to 1 oldest [Reference Range]: Color, UA Yellow [Colorless] (09/23/19 4:21 PM) Clarity, UA [Clear] Slightly Cloudy *ABN* (09/23/19 4:21 PM) Glucose, UA Negative mg/dL [Negative mg/dL] (09/23/19 4:21 PM) Bilirubin, UA Negative mg/dL [Negative mg/dL] (09/23/19 4:21 PM) Ketones, UA 80 mg/dL [Negative mg/dL] *ABN* (09/23/19 4:21 PM) Specific Blount, UA 1.022 [1.003-1.030] (09/23/19 4:21 PM) Blood, UA [Negative Negative mg/dL mg/dL] (09/23/19 4:21 PM) pH, UA 6.0 (09/23/19 4:21 PM) Protein, UA 10 mg/dL [Negative mg/dL] *ABN* (09/23/19 4:21 PM) Urobilinogen, UA 6 mg/dL [Normal mg/dL] *ABN* (09/23/19 4:21 PM) Nitrites, UA Positive [Negative] *ABN* (09/23/19 4:21 PM) Leukocyte Esterase Trace Melissa/uL [Negative Melissa/uL] *ABN* (09/23/19 4:21 PM) WBC, UA [0-5 /hpf] 0-5 /hpf (09/23/19 4:21 PM) RBC, UA [0-5 /hpf] 0-5 /hpf (09/23/19 4:21 PM) Bacteria, UA Many /uL [Negative /uL] *ABN* (09/23/19 4:21 PM) Squamous Epithelial Negative / Few /hpf [Negative / Few (09/23/19 4:21 PM) /hpf] Hyaline Cast [0-2 2-5 /lpf /lpf] *ABN* (09/23/19 4:21 PM) Culture Needed [Not Cultured Indicated] *ABN* (09/23/19 4:21 PM) Method of CATH Collection, UA (09/23/19 4:21 PM) Immunizations No data available for this section Procedures Procedure Date Related Diagnosis Body Site Status Collection of venous blood by venipuncture 09/23/19 Completed Collection of venous blood by venipuncture 09/23/19 Completed Collection of venous blood by venipuncture 09/23/19 Completed Collection of venous blood by venipuncture 09/23/19 Completed Collection of venous blood by venipuncture 09/23/19 Completed Social History Social History Type Response Smoking Status Former smoker1 entered on: 09/23/19 1Quit 6 months ago Functional Status COGNITIVE 09/23/19 Orientation Oriented x 3 Assessment and Plan No data available for this section Hospital Discharge Instructions Patient Education Abdominal Pain, Adult Shortness of Breath Weakness Follow Up Care 09/23/2019 12:11:10 With: [facility] [place] Address: Unknown When: As Needed Comments: You were seen in the Emergency Department for left sided weakness, breathing difficulty, and abdominal pain. Your blood work and imaging including CT head, CT abdomen, MRI of your head did not show anything concerning, no stroke. We are recommending that you follow up with a primary care doctor as needed and have gieven you information on [facility]. Please take your prescribed medications as indicated. If you experience any change or worsening of your symptoms, please return to ED for a re-evaluation.
--- OUTSIDE RECORDS SUMMARY | 2020-04-22 03:23 | XMS REPORT ---
Author Author Yomaira NIETO Organization [facility] Address [address] [place] [address] Care Team Providers Care Registered Medical Assistant Name Role Phone NORMA NIETO Unavailable PROBLEMS Type Condition ICD9-CM Code TGB60-BP Code Onset Dates Condition S tatus SNOMED Code Problem Mild persistent reactive airway disease without complicati on J45.30 Active 726611450 Problem Morbid (severe) obesity due to excess calories E66 .01 Active 819406227 Problem Anxiety F41.9 Active 42803280 Problem Chronic edema R60.9 Active 415579 008 Problem Body mass index (BMI) of 60.0-69.9 in adult Z68.44 Active 865185232 Problem Abdominal wall hernia K43.9 Active 291714361 Problem Seizure-like activity R56.9 Active 629545621 ALLERGIES No Information ENCOUNTERS Encounter Location Date Diagnosis [facility] [address] [place] [id number] [address] [place] [phone] Jan, [facility] [address] [phone] Jan, Anxiety F41.9 and Morbid (se lillie) obesity due to excess calories E66.01 [facility] [address] [place] [id number] [address] [place] [phone] Jan, Anxiety F41.9 and Morbid (se lillie) obesity due to excess calories E66.01 [facility] [address] [place] [id number] [address] [place] [phone] Jan, [facility] [address] [place] [id number] [address] [place] [phone] Dec, [facility] [address] [phone] Sep[facility] [address] [facility] [id number] [address] [place] [phone] Aug, [facility] [address] [facility] [id number] [address] [place] [phone] Aug, [facility] [address] [facility] [id number] [address] [place] [phone] Jul, Abdominal wall hernia K43.9 ; Seizure-like activity R56.9 ; Chronic edema R60.9 ; Mild persistent reactive airway disease without complication J45.30 ; Anxiety F41.9 ; Body mass index (BMI) of 60.0-69.9 in adult Z68.44 and Morbid (severe) obesity due to excess calories E66.01 [facility] [address] [place] [id number] [place] [id number] Jun, [facility] [address] [facility] [id number] [address] [place] [phone] Feb, [facility] [address] [id number] [address] [place] [phone] Feb, [facility] [address] [facility] [id number] [address] [place] [phone] Jun, [facility] [address] [facility] [id number] [address] [place] [phone] Nov, [facility] [address] [facility] [id number] [address] [place] [id number] Aug, [facility] [address] [id number] [address] [place] [phone] Nov, [facility] [address] [facility] [id number] [address] [place] [phone] Nov, [facility] [address] [facility] [id number] [address] [place] [phone] Nov, [facility] [address] [facility] [id number] [address] [place] [id number] Nov, [facility] [address] [facility] [id number] [address] [id number] Nov, [facility] [address] [facility] [id number] [address] [place] [phone] Oct, IMMUNIZATIONS No Known Immunizations SOCIAL HISTORY Never Assessed REASON FOR VISIT Requests Return Call / SKIL PLAN OF CARE VITAL SIGNS MEDICATIONS Unknown [...] gastric sleeve 2016 Hospitalization History abdominal pain, hernia-[facility] 07/12/17
--- OUTSIDE RECORDS SUMMARY | 2020-04-22 03:23 | XMS REPORT ---
Author Author Yomaira NIETO Organization [facility] Address [address] [place] [address] Care Team Providers Care Aircraft Stress Analyst Name Role Phone NORMA NIETO Unavailable PROBLEMS Type Condition ICD9-CM Code [id number] Code Onset Dates Condition S tatus SNOMED Code Problem Mild persistent reactive airway disease without complicati on J45.30 Active 316465236 Problem Morbid (severe) obesity due to excess calories E66 .01 Active 605817884 Problem Anxiety F41.9 Active 86853396 Problem Chronic edema R60.9 Active 364930 008 Problem Body mass index (BMI) of 60.0-69.9 in adult Z68.44 Active 844024146 Problem Abdominal wall hernia K43.9 Active 745547881 Problem Seizure-like activity R56.9 Active [id number] ALLERGIES No Information ENCOUNTERS Encounter Location Date Diagnosis [facility] [address] [place] [id number] [address] [place] [phone] Jan, [facility] [address] [address] Jan, Anxiety F41.9 and Morbid (se lillie) obesity due to excess calories E66.01 [facility] [address] [place] [address] [id number] [address] [place] [phone] Jan, Anxiety F41.9 and Morbid (se lillie) obesity due to excess calories E66.01 [facility] [address] [place] [id number] [address] [place] [phone] Jan, [facility] [address] [place] [id number] [address] [place] [phone] Dec, [facility] [address] [phone] Sep, [facility] [address] [facility] [id number] [address] [place] [phone] Aug, [facility] [address] [facility] [id number] [address] [place] [phone] Aug, [facility] [address] [facility] [id number] [address] [place] [phone] Jul, Abdominal wall hernia K43.9 ; Seizure-like activity R56.9 ; Chronic edema R60.9 ; Mild persistent reactive airway disease without complication J45.30 ; Anxiety F41.9 ; Body mass index (BMI) of 60.0-69.9 in adult Z68.44 and Morbid (severe) obesity due to excess calories E66.01 [facility] [address] [place] [id number] [place] [phone] Jun, [facility] [address] [facility] [id number] [address] [place] [phone] Feb, [facility] [address] [id number] [address] [place] [phone] Feb, [facility] [address] [facility] [id number] [address] [place] [phone] Jun, [facility] [address] [facility] [id number] [address] [place] [phone] Nov, [facility] [address] [facility] [id number] [address] [place] [phone] Aug, [facility] [address] [id number] [address] [place] [phone] Nov, [facility] [address] [facility] [id number] [address] [place] [phone] Nov, [facility] [address] [facility] [id number] [address] [place] [phone] Nov, [facility] [address] [facility] [id number] [address] [place] [phone] Nov, [facility] [address] [facility] [id number] [address] [place] [phone] Nov, [facility] [address] [facility] [id number] [address] [place] [phone] Oct, IMMUNIZATIONS No Known Immunizations SOCIAL HISTORY Never Assessed REASON FOR VISIT RX clarification PLAN OF CARE VITAL SIGNS MEDICATIONS Medication Instructions Dosage Frequency Start Date End Date Duration S tatus Sertraline HCl 50 mg Orally Once a day 1 1/2 tablet 24h Active Aripiprazole 5 mg Orally Once a day 1 tablet 24h Active Omeprazole 20 mg Orally twice a day 1 tablet 12h Active Trazodone HCl 150 MG Orally Once a day 1 tablet at bedtime 24h Active Pravastatin Sodium 20 mg Orally Once a day 1 tablet 24h Active RESULTS No Results PROCEDURES No Known [...] gastric sleeve 2016 Hospitalization History abdominal pain, hernia-[facility] 07/12/17
--- OUTSIDE RECORDS SUMMARY | 2020-04-22 03:23 | XMS REPORT ---
Author Author MADIHA Yomairajd VALDEZ Organization [facility] Address [address] [place] [address] Care Team Providers Care Capacitor Assembler Name Role Phone JOSÉ MIGUEL CLEARY Unavailable PROBLEMS Type Condition ICD9-CM Code LVP62-SJ Code Onset Dates Condition S tatus SNOMED Code Problem Mild persistent reactive airway disease without complicati on J45.30 Active 835389966 Problem Morbid (severe) obesity due to excess calories E66 .01 Active 821631970 Problem Anxiety F41.9 Active 52033851 Problem Chronic edema R60.9 Active 930771 008 Problem Body mass index (BMI) of 60.0-69.9 in adult Z68.44 Active 829730329 Problem Abdominal wall hernia K43.9 Active 148647872 Problem Seizure-like activity R56.9 Active 902922237 ALLERGIES No Information ENCOUNTERS Encounter Location Date Diagnosis [place] [address] [phone] March, [place] [address] [phone] Jan, [place] [address] [phone] Jan, Anxiety F41.9 and Morbid (se lillie) obesity due to excess calories E66.01 [facility] [address] [facility] [id number] [address] [place] [phone] Jan, Anxiety F41.9 and Morbid (se lillie) obesity due to excess calories E66.01 [place] [address] [place] [id number] [address] [place] [phone] Jan, [facility] [address] [phone] Dec, [facility] [address] [facility] [id number] [address] [place] [phone] Sep, [facility] [address] [facility] [id number] [address] [place] [phone] Aug, [facility] [address] [facility] [id number] [address] [place] [phone] Aug, [facility] [address] [facility] [id number] [address] [place] [phone] Jul, Abdominal wall hernia K43.9 ; Seizure-like activity R56.9 ; Chronic edema R60.9 ; Mild persistent reactive airway disease without complication J45.30 ; Anxiety F41.9 ; Body mass index (BMI) of 60.0-69.9 in adult Z68.44 and Morbid (severe) obesity due to excess calories E66.01 [facility] [address] [place] [id number] [place] [phone] Jun, [facility] [address] [facility] [id number] [address] [place] [phone] Feb, [facility] [address] [facility] [id number] [address] [place] [phone] Feb, [facility] [address] [facility] [id number] [address] [place] [phone] Jun, [facility] [address] [facility] [id number] [address] [place] [phone] Nov, [facility] [address] [facility] [id number] [address] [place] [phone] Aug, [facility] [address] [facility] [id number] [address] [place] [phone] Nov, [facility] [address] [facility] [id number] [address] [place] [phone] Nov, [facility] [address] [facility] [id number] [address] [place] [phone] Nov, [facility] [address] [facility] [id number] [address] [place] [phone] Nov, [facility] [address] [facility] [id number] [address] [place] [phone] Nov, [facility] [address] [facility] [id number] [address] [place] [phone] Oct, IMMUNIZATIONS No Known Immunizations SOCIAL HISTORY Never Assessed REASON FOR VISIT Hospital admit/dc PLAN OF CARE VITAL SIGNS MEDICATIONS Unknown [...] gastric sleeve 2016 Hospitalization History abdominal pain, hernia-[facility] 07/12/17
--- OUTSIDE RECORDS SUMMARY | 2020-04-22 03:23 | XMS REPORT ---
Author Author Yomaira NIETO Organization [facility] Address [address] [place] [address] Care Team Providers Care Power Engineer Name Role Phone NORMA NIETO Unavailable PROBLEMS Type Condition ICD9-CM Code HED20-IX Code Onset Dates Condition S tatus SNOMED Code Problem Mild persistent reactive airway disease without complicati on J45.30 Active 022557536 Problem Morbid (severe) obesity due to excess calories E66 .01 Active 890029807 Problem Anxiety F41.9 Active 14237788 Problem Chronic edema R60.9 Active 736964 008 Problem Body mass index (BMI) of 60.0-69.9 in adult Z68.44 Active 140772724 Problem Abdominal wall hernia K43.9 Active 847437183 Problem Seizure-like activity R56.9 Active 564655205 ALLERGIES No Information ENCOUNTERS Encounter Location Date Diagnosis [facility] [address] [place] [id number] [address] [place] [phone] Jan, [facility] [address] [id number] [address] [place] [phone] Jan, Anxiety F41.9 and Morbid (se lillie) obesity due to excess calories E66.01 [facility] [address] [place] [address] [id number] [address] [place] [phone] Jan, Anxiety F41.9 and Morbid (se lillie) obesity due to excess calories E66.01 [facility] [address] [place] [address] [id number] [address] [place] [phone] Jan, [facility] [address] [place] [id number] [address] [place] [phone] Dec, [facility] [address] [id number] [address] [place] [phone] Sep, [facility] [address] [facility] [id number] [address] [place] [phone] Aug, [facility] [address] [facility] [id number] [address] [place] [phone] Aug, [facility] [address] [facility] [id number] [address] [place] [phone] Jul, Abdominal wall hernia K43.9 ; Seizure-like activity R56.9 ; Chronic edema R60.9 ; Mild persistent reactive airway disease without complication J45.30 ; Anxiety F41.9 ; Body mass index (BMI) of 60.0-69.9 in adult Z68.44 and Morbid (severe) obesity due to excess calories E66.01 [facility] [address] [id number] [place] [phone] Jun, [facility] [address] [facility] [id number] [address] [place] [phone] Feb, [facility] [address] [id number] [address] [place] [phone] Feb, [facility] [address] [facility] [id number] [address] [place] [phone] Jun, [facility] [address] [facility] [id number] [address] [place] [phone] Nov, [facility] [address] [facility] [id number] [address] [place] [phone] Aug, [facility] [address] [id number] [address] [place] [phone] Nov, [facility] [address] [facility] [id number] [address] [place] [phone] Nov, [facility] [address] [facility] [id number] [address] [place] [phone] Nov, [facility] [address] [facility] [id number] [address] [place] [phone] Nov, [facility] [address] [facility] [id number] [address] [place] [phone] Nov, [facility] [address] [facility] [id number] [address] [place] [phone] Oct, IMMUNIZATIONS No Known Immunizations SOCIAL HISTORY Never Assessed REASON FOR VISIT Refill request/home care PLAN OF CARE VITAL SIGNS MEDICATIONS Unknown [...] gastric sleeve 2016 Hospitalization History abdominal pain, hernia-[facility] 07/12/17
--- OUTSIDE RECORDS SUMMARY | 2020-04-22 03:23 | XMS REPORT ---
Author Author Yomaira NIETO Organization [facility] Address [address] [place] [address] Care Team Providers Care Dog Behaviorist Name Role Phone NORMA NIETO Unavailable PROBLEMS Type Condition ICD9-CM Code ZMQ83-TO Code Onset Dates Condition S tatus SNOMED Code Problem Mild persistent reactive airway disease without complicati on J45.30 Active 847324661 Problem Morbid (severe) obesity due to excess calories E66 .01 Active 320720062 Problem Anxiety F41.9 Active 13438912 Problem Chronic edema R60.9 Active 027403 008 Problem Body mass index (BMI) of 60.0-69.9 in adult Z68.44 Active 614264888 Problem Abdominal wall hernia K43.9 Active 231757160 Problem Seizure-like activity R56.9 Active [id number] ALLERGIES No Information ENCOUNTERS Encounter Location Date Diagnosis [facility] [address] [place] [address] [id number] [address] [place] [phone] Jan, [facility] [address] [phone] Jan, Anxiety F41.9 and Morbid (se lillie) obesity due to excess calories E66.01 [facility] [address] [place] [id number] [address] [place] [phone] Jan, Anxiety F41.9 and Morbid (se lillie) obesity due to excess calories E66.01 [facility] [address] [place] [id number] [address] [place] [phone] Jan, [facility] [address] [place] [id number] [address] [place] [phone] Dec, [facility] [address] [phone] Sep, [facility] [address] [facility] [id number] [address] [place] [phone] Aug, [facility] [address] [facility] [id number] [address] [place] [phone] Aug, [facility] [address] [facility] [id number] [address] [place] [phone] Jul, Abdominal wall hernia K43.9 ; Seizure-like activity R56.9 ; Chronic edema R60.9 ; Mild persistent reactive airway disease without complication J45.30 ; Anxiety F41.9 ; Body mass index (BMI) of 60.0-69.9 in adult Z68.44 and Morbid (severe) obesity due to excess calories E66.01 [facility] [address] [place] [id number] [place] [address] [id number] Jun, [facility] [address] [facility] [id number] [address] [place] [phone] Feb, [facility] [address] [id number] [address] [place] [phone] Feb, [facility] [address] [facility] [id number] [address] [place] [phone] Jun, [facility] [address] [facility] [id number] [address] [place] [phone] Nov, [facility] [address] [facility] [id number] [address] [place] [phone] Aug, [facility] [address] [id number] [address] [place] [phone] Nov, [facility] [address] [facility] [id number] [address] [place] [phone] Nov, [facility] [address] [facility] [id number] [address] [place] [phone] Nov, [facility] [address] [facility] [id number] [address] [place] [phone] Nov, [facility] [address] [facility] [id number] [address] [place] [phone] Nov, [facility] [address] [facility] [id number] [address] [place] [phone] Oct, IMMUNIZATIONS No Known Immunizations SOCIAL HISTORY Never Assessed REASON FOR VISIT Oxygen order PLAN OF CARE VITAL SIGNS MEDICATIONS Unknown [...] gastric sleeve 2016 [facility], [facility]
--- OUTSIDE RECORDS SUMMARY | 2020-04-22 03:23 | XMS REPORT | Continuity of Care Document ---
Author Organization Unknown Address Unknown Phone Unavailable Allergies Active Description Code Type Severity Reaction Onset Reported/Identified Relationship to Patient Clinical Status Yes ATIVAN ATIVAN UNKNOWN Yes DILANTIN DILANTIN UNKNOWN Yes LATEX, NATURAL RUBBER LATEX, NATURAL RUBBE UNKNOWN Yes PHENOBARBITAL PHE NOBARBITAL UNKNOWN Yes Ativan Drug N/A N/A Yes Contrast Dye Other N/A N/A Yes Dilantin Drug N/A N/A Yes Latex Other N/A N/A Yes Latuda Drug N/A N/A Yes PHENobarbital Drug N/A N/A Yes sulfa drugs Drug N/A N/A Yes phenobarbital [id number] Carroll g Allergy Unknown N/A 03/09/2006 Yes latex [id number] Drug Allergy Moderate RASH, ITCHING 03/02/2011 Yes vancomycin [id number] Drug Allerg y Moderate HIVES 03/02/2011 Yes iodine [id number] Drug Allergy Mild "ILL" 03/02/2011 Yes Latex OA 11/22/2011 Yes PHENobarbital Drug Allergy 11/22/2011 Yes lorazepam [id number] Drug Allergy Unknown N/A 07/12/2017 Yes phenytoin [id number] Drug Allergy Unknown N/A 07/12/2017 Medications Medication Packaging Start Date St op Date Route Dosage Sig metFORMIN 2018 PO metFORMIN lisinopril 09/23 PO lisinopril gabapentin 09/23 PO 300 mg / 1 cap budesonide-formoterol 09/23/2019 INH Symbicort 80/4.5 atorvastatin atorvastatin furosemide 10/07 furosemide pantoprazole PO pantoprazole sertraline 10/07 sertraline ARIPiprazole ARIPiprazole Problems Date Dx Coded Attending Type Code Diagnosis Diagnosed By 06/27/2010 Ot 553.21 06/27/2010 Ot 599.0 06/27/2010 Ot 789.09 01/11/2011 Ot 553.21 01/11/2011 Ot 789.01 01/16/2011 Ot 552.20 01/31/2011 Ot 553.20 01/31/2011 Ot 789.09 03/09/2011 Ot 278.01 03/09/2011 Ot 553.21 03/09/2011 Ot V85.44 11/22/2011 356.9 UNSP ECIFIED IDIOPATHIC PERIPHERAL NEUROPATHY 11/22/2011 401.9 UNSP ECIFIED ESSENTIAL HYPERTENSION 11/22/2011 496 CHRONI C AIRWAY OBSTRUCTION NOT ELSEWHERE CLASSIFIED 11/22/2011 716.90 UNS PECIFIED ARTHROPATHY SITE UNSPECIFIED 12/23/2013 SCOUT LOVING Ot 300.00 ANXIETY STATE NOS 12/23/2013 SCOUT LOVING Ot 796.0 ABN TOXICOLOGIC FINDING 12/23/2013 SCOUT LOVING Ot 924.11 CONTUSION OF KNEE 12/23/2013 SCOUT LOVING Ot 959.7 LOWER LEG INJURY NOS 12/23/2013 SCOUT LOVING Ot E000.8 OTHER EXTERNAL CAUSE STATUS 12/23/2013 SCOUT LOVING Ot E849.0 ACCIDENT IN HOME 12/23/2013 SCOUT LOVING Ot E885.9 FALL FROM SLIPPING, TRIPPING, OR STUMBLI 06/25/2015 Ot 553.20 06/25/2015 Ot V72.63 06/25/2015 Ot V74.8 07/10/2015 YOANDY SMITH MD Ot 305.1 07/10/2015 YOANDY SMITH MD Ot 786.05 07/10/2015 YOANDY SMITH MD Ot 786.07 01/10/2017 YOANDY SMITH MD Ot R0 5 COUGH 01/19/2017 YOANDY SMITH MD Ot R0 5 COUGH 01/24/2017 YOANDY SMITH MD Ot 305.1 TOBACCO USE DISORDER 01/24/2017 YOANDY SMITH MD Ot 786.05 SHORTNESS OF BREATH 01/24/2017 YOANDY SMITH MD Ot 786.07 WHEEZING 01/24/2017 YOANDY SMITH MD Ot R0 5 COUGH 07/12/2017 YOANDY SMITH MD Ot 305.1 TOBACCO USE DISORDER 07/12/2017 YOANDY SMITH MD Ot 786.05 SHORTNESS OF BREATH 07/12/2017 YOANDY SMITH MD Ot 786.07 WHEEZING 07/12/2017 YOANDY SMITH MD Ot R0 5 COUGH 07/13/2017 JOSÉ MIGUEL CLEARY MD Ot E11 .9 TYPE 2 DIABETES MELLITUS WITHOUT COMPLIC 07/13/2017 JOSÉ MIGUEL CLEARY MD Ot E66.01 MORBID (SEVERE) OBESITY DUE TO EXCESS CA 07/13/2017 JOSÉ MIGUEL CLEARY MD Ot F17.210 NICOTINE DEPENDENCE, CIGARETTES, UNCOMPL 07/13/2017 JOSÉ MIGUEL CLEARY MD N Ot G40.909 EPILEPSY, UNSP, NOT INTRACTABLE, WITHOUT 07/13/2017 JOSÉ MIGUEL CLEARY MD N Ot G47.30 SLEEP APNEA, UNSPECIFIED 07/13/2017 JOSÉ MIGUEL CLEARY MD Ot J44 .9 CHRONIC OBSTRUCTIVE PULMONARY DISEASE, U 07/13/2017 JOSÉ MIGUEL CLEARY MD N Ot K43 .6 OTHER AND UNSP VENTRAL HERNIA WITH OBSTR 07/13/2017 JOSÉ MIGUEL CLEARY MD Ot Z79.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 07/13/2017 JOSÉ MIGUEL CLEARY MD N Ot Z98.84 BARIATRIC SURGERY STATUS 07/13/2017 JOSÉ MIGUEL CLEARY MD Ot E11 .9 TYPE 2 DIABETES MELLITUS WITHOUT COMPLIC 07/13/2017 JOSÉ MIGUEL CLEARY MD Ot E66.01 MORBID (SEVERE) OBESITY DUE TO EXCESS CA 07/13/2017 JOSÉ MIGUEL CLEARY MD N Ot F17.210 NICOTINE DEPENDENCE, CIGARETTES, UNCOMPL 07/13/2017 JOSÉ MIGUEL CLEARY MD Ot G40.909 EPILEPSY, UNSP, NOT INTRACTABLE, WITHOUT 07/13/2017 JOSÉ MIGUEL CLEARY MD N Ot G47.30 SLEEP APNEA, UNSPECIFIED 07/13/2017 JOSÉ MIGUEL CLEARY MD N Ot J44 .9 CHRONIC OBSTRUCTIVE PULMONARY DISEASE, U 07/13/2017 JOSÉ MIGUEL CLEARY MD N Ot K43 .6 OTHER AND UNSP VENTRAL HERNIA WITH OBSTR 07/13/2017 JOSÉ MIGUEL CLEARY MD N Ot 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.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 07/13/2017 JOSÉ MIGUEL CLEARY MD N Ot Z98.84 BARIATRIC SURGERY STATUS 09/23/2019 TEODORO SEGURA Admitting R06.00 Dyspnea, unspecified 09/23/2019 TEODORO SEGURA Final R06.0 3 Acute respiratory distress 09/23/2019 TEODORO SEGURA Final R10.8 4 Generalized abdominal pain 09/23/2019 TEODORO SEGURA Final R53.1 Weakness 09/23/2019 TEODORO SEGURA Final Z87.8 91 Personal history of nicotine dependence 10/07/2019 Deniz Lin Final E11 .9 Type 2 diabetes mellitus without complications 10/07/2019 Deniz Lin Final E66 .9 Obesity, unspecified 10/07/2019 Deniz Lin Final R10.84 Generalized abdominal pain 10/07/2019 Deniz Lin Admitting R10.9 Unspecified abdominal pain 10/07/2019 Deniz Lin Final Z68.44 Body mass index (BMI) 60.0-69.9, adult 10/07/2019 Deniz Lin Final Z79.84 intermission coordinator (current) use of oral hypoglycemic drugs 10/07/2019 Deniz Lin Final Z79.899 Other jail (current) drug therapy 10/07/2019 Deniz Lin Final Z87.891 Personal history of nicotine dependence 10/07/2019 Deniz Lin Final Z98.84 Bariatric surgery status 04/22/2020 SARAH BARBOSA, YOANDY L Ot 305.1 TOBACCO USE DISORDER 04/22/2020 SARAH BARBOSA, YOANDY L Ot 786.05 SHORTNESS OF BREATH 04/22/2020 SARAH BARBOSA, YOANDY L Ot 786.07 WHEEZING 04/22/2020 SARAH BARBOSA, YOANDY L Ot R0 5 COUGH Procedures Code Description [place] [address] Ther apeutic, prophylactic, or diagnostic KENNETH DE LA VEGA 09/23/2019 32987 Ther apeutic, prophylactic, or diagnostic KENNETH DE LA VEGA 09/23/2019 69744 [facility] visit for the evalu KENNETH DE LA VEGA 09/23/2019 38453 Ther apeutic, prophylactic, or diagnostic KENNETH DE LA VEGA 10/07/2019 16494 Ther apeutic, prophylactic, or diagnostic KENNETH DE LA VEGA 10/07/2019 05310 [facility] visit for the evalu KENNETH DE LA VEGA 10/07/2019 Results Test Result Range Complete blood count (CBC) with automate d white blood cell (WBC) differential - 01/07/17 20:40 Blood leukocytes automated count (number/volume) 9.1 10*3/uL 4.3-11.0 Blood erythrocytes automated count (number/volume) 5.04 10*6/uL 4.35-5.85 Venous blood hemoglobin measurement (mass/volume) 16.1 g/dL 11.5-16.0 Blood hematocrit (volume fraction) 49 % 35-52 Automated erythrocyte mean corpuscular volume 97 [ foz_us] 80-99 Automated erythrocyte mean corpuscular h emoglobin (mass per erythrocyte) 32 pg 25-34 Automated erythrocyte mean corpuscular h emoglobin concentration measurement (mass/volume) 33 g/dL 32-36 Automated erythrocyte distribution width ratio 13. 4 % 10.0- 14.5 Automated blood platelet count (count/volume) 204 10*3/uL 130-400 Automated blood platelet mean volume measurement 9.4 [foz_us] 7.4-10.4 Automated blood neutrophils/100 leukocytes 74 % 42-75 Automated blood lymphocytes/100 leukocytes 19 % 12-44 Blood monocytes/100 leukocytes 6 % 0-12 Automated blood eosinophils/100 leukocytes 1 % 0-10 Automated blood basophils/100 leukocytes 0 % 0-10 Blood neutrophils automated count (number/volume) 6.7 10*3 1.8-7.8 Blood lymphocytes automated count (number/volume) 1.7 10*3 1.0-4.0 Blood monocytes automated count (number/volume) 0. 5 10*3 0.0-1.0 Automated eosinophil count 0.1 10*3/uL 0 .0-0.3 Automated blood basophil count (count/volume) 0.0 10*3/uL 0.0-0.1 Comprehensive metabolic panel - 01/07/17 20:40 Serum or plasma sodium measurement (moles/volume) 141 mmol/L 135-145 Serum or plasma potassium measurement (moles/volume) 4.8 mmol/L 3.6-5.0 Serum or plasma chloride measurement (moles/volume) 107 mmol/L 98-107 Carbon dioxide 23 mmol/L 21-32 Serum or plasma anion gap determination (moles/volume) 11 mmol/L 5-14 Serum or plasma urea nitrogen measurement (mass/volume ) 13 mg/dL 7-18 Serum or plasma creatinine measurement (mass/volume) 0.70 mg/dL 0.60-1.30 Serum or plasma urea nitrogen/creatinine mass ratio 19 NRG Serum or plasma creatinine measurement w ith calculation of estimated glomerular filtration rate > NRG Serum or plasma glucose measurement (mass/volume) 96 mg/dL 70-105 Serum or plasma calcium measurement (mass/volume) 8.9 mg/dL 8.5-10.1 Serum or plasma total bilirubin measurement (mass/volu me) 0.3 mg/dL 0.1-1.0 Serum or plasma alkaline phosphatase lexy surement (enzymatic activity/volume) 103 U/L 40-136 Serum or plasma aspartate aminotransfera se measurement (enzymatic activity/volume) 14 U/L 5-34 Serum or plasma alanine aminotransferase measurement (enzymatic activity/volume) 15 U/L 0-55 Serum or plasma protein measurement (mass/volume) 6.7 g/dL 6.4-8.2 Serum or plasma albumin measurement (mass/volume) 3.8 g/dL 3.2-4.5 Lipid 1996 panel - 01/07/17 20:40 Serum or plasma triglyceride measurement (mass/volume) 189 mg/dL <150 Serum or plasma cholesterol measurement (mass/volume) 244 mg/dL < 200 Serum or plasma cholesterol in HDL measurement (mass/v olume) 41 mg/dL 40-60 Cholesterol in LDL [mass/volume] in serum or plasma by direct assay 185 mg/dL 1-129 Serum or plasma cholesterol in VLDL measurement (mass/ volume) 38 mg/dL 5-40 Hemoglobin A1c - 01/07/17 20:40 Hemoglobin A1c 6.0 % 4.5-6.2 THYROID STIMULATING HORMONE - 01/07/17 2 0:40 THYROID STIMULATING HORMONE 0.84 u[iU]/mL 0.35-4.94 Complete urinalysis with reflex to cultu re - 07/12/17 10:20 Urine color determination YELLOW NRG Urine clarity determination SLIGHTLY CLOUDY NRG Urine pH measurement by test strip 6.5 5-9 Specific gravity of urine by test strip 1.015 1.016-1.022 Urine protein assay by test strip, semi-quantitative NEGATIVE NEGATIVE Urine glucose detection by automated test strip NE GATIVE NEGATIVE Erythrocytes detection in urine sediment by light micr oscopy NEGATIVE NEGATIVE Urine ketones detection by automated test strip NE GATIVE NEGATIVE Urine nitrite detection by test strip POSITIVE NEGATIVE Urine total bilirubin detection by test strip NEGA TIVE NEGATIVE Urine urobilinogen measurement by automated test strip (mass/volume) 8 mg/dL NORMAL Urine leukocyte esterase detection by dipstick NEG ATIVE NEGATIVE Automated urine sediment erythrocyte cou nt by microscopy (number/high power field) RARE NRG Automated urine sediment leukocyte count by microscopy (number/high power field) RARE NRG Bacteria detection in urine sediment by light microsco py TRACE NRG Squamous epithelial cells detection in u rine sediment by light microscopy 5-10 NRG Crystals detection in urine sediment by light microsco py NONE NRG Casts detection in urine sediment by light microscopy NONE NRG Mucus detection in urine sediment by light microscopy MODERATE NRG Complete urinalysis with reflex to culture YES NRG Bacterial urine culture - 07/12/17 10:20 Bacterial urine culture [id number] NRG COLONY COUNT >100,000/ML NRG FTX;REPORTABLE PLUS, NRG FREE TEXT ENTRY 2 MIXED GORGE <10,000/ML NRG Bacterial susceptibility panel - 7 10:20 Gentamicin susceptibility test by minimum inhibitory c oncentration S NRG Vancomycin susceptibility test by minimum inhibitory c oncentration 1 NRG Levofloxacin susceptibility test by minimum inhibitory concentration 0.5 NRG Tetracycline susceptibility test by minimum inhibitory concentration >= NRG Ampicillin susceptibility test by minimum inhibitory c oncentration <= NRG Nitrofurantoin susceptibility test by mi nimum inhibitory concentration <= NRG Linezolid susceptibility test by minimum inhibitory co ncentration 2 NRG Complete blood count (CBC) with automate d white blood cell (WBC) differential - 07/12/17 20:00 Blood leukocytes automated count (number/volume) 9.8 10*3/uL 4.3-11.0 Blood erythrocytes automated count (number/volume) 4.52 10*6/uL 4.35-5.85 Venous blood hemoglobin measurement (mass/volume) 14.4 g/dL 11.5-16.0 Blood hematocrit (volume fraction) 44 % 35-52 Automated erythrocyte mean corpuscular volume 97 [ foz_us] 80-99 Automated erythrocyte mean corpuscular h emoglobin (mass per erythrocyte) 32 pg 25-34 Automated erythrocyte mean corpuscular h emoglobin concentration measurement (mass/volume) 33 g/dL 32-36 Automated erythrocyte distribution width ratio 13. 3 % 10.0- 14.5 Automated blood platelet count (count/volume) 152 10*3/uL 130-400 Automated blood platelet mean volume measurement 9.5 [foz_us] 7.4-10.4 Automated blood neutrophils/100 leukocytes 77 % 42-75 Automated blood lymphocytes/100 leukocytes 14 % 12-44 Blood monocytes/100 leukocytes 8 % 0-12 Automated blood eosinophils/100 leukocytes 1 % 0-10 Automated blood basophils/100 leukocytes 0 % 0-10 Blood neutrophils automated count (number/volume) 7.5 10*3 1.8-7.8 Blood lymphocytes automated count (number/volume) 1.4 10*3 1.0-4.0 Blood monocytes automated count (number/volume) 0. 8 10*3 0.0-1.0 Automated eosinophil count 0.1 10*3/uL 0 .0-0.3 Automated blood basophil count (count/volume) 0.0 10*3/uL 0.0-0.1 Comprehensive metabolic panel - 07/12/17 20:00 Serum or plasma sodium measurement (moles/volume) 140 mmol/L 135-145 Serum or plasma potassium measurement (moles/volume) 3.8 mmol/L 3.6-5.0 Serum or plasma chloride measurement (moles/volume) 106 mmol/L 98-107 Carbon dioxide 26 mmol/L 21-32 Serum or plasma anion gap determination (moles/volume) 8 mmol/L 5-14 Serum or plasma urea nitrogen measurement (mass/volume ) 4 mg/dL 7-18 Serum or plasma creatinine measurement (mass/volume) 0.60 mg/dL 0.60-1.30 Serum or plasma urea nitrogen/creatinine mass ratio 7 NRG Serum or plasma creatinine measurement w ith calculation of estimated glomerular filtration rate > NRG Serum or plasma glucose measurement (mass/volume) 106 mg/dL 70-105 Serum or plasma calcium measurement (mass/volume) 8.6 mg/dL 8.5-10.1 Serum or plasma total bilirubin measurement (mass/volu me) 0.6 mg/dL 0.1-1.0 Serum or plasma alkaline phosphatase lexy surement (enzymatic activity/volume) 90 U/L 40-136 Serum or plasma aspartate aminotransfera se measurement (enzymatic activity/volume) 13 U/L 5-34 Serum or plasma alanine aminotransferase measurement (enzymatic activity/volume) 15 U/L 0-55 Serum or plasma protein measurement (mass/volume) 5.8 g/dL 6.4-8.2 Serum or plasma albumin measurement (mass/volume) 3.3 g/dL 3.2-4.5 Magnesium - 07/12/17 20:00 Magnesium 1.7 mg/dL 1.8-2.4 Blood lactic acid measurement (moles/vol ume) - 07/12/17 22:20 Blood lactic acid measurement (moles/volume) 0.85 mmol/L 0.50-2.00 Complete blood count (CBC) with automate d white blood cell (WBC) differential - 07/13/17 06:07 Blood leukocytes automated count (number/volume) 8.4 10*3/uL 4.3-11.0 Blood erythrocytes automated count (number/volume) 4.11 10*6/uL 4.35-5.85 Venous blood hemoglobin measurement (mass/volume) 13.1 g/dL 11.5-16.0 Blood hematocrit (volume fraction) 41 % 35-52 Automated erythrocyte mean corpuscular volume 99 [ foz_us] 80-99 Automated erythrocyte mean corpuscular h emoglobin (mass per erythrocyte) 32 pg 25-34 Automated erythrocyte mean corpuscular h emoglobin concentration measurement (mass/volume) 32 g/dL 32-36 Automated erythrocyte distribution width ratio 13. 3 % 10.0- 14.5 Automated blood platelet count (count/volume) 169 10*3/uL 130-400 Automated blood platelet mean volume measurement 9.6 [foz_us] 7.4-10.4 Automated blood neutrophils/100 leukocytes 73 % 42-75 Automated blood lymphocytes/100 leukocytes 17 % 12-44 Blood monocytes/100 leukocytes 9 % 0-12 Automated blood eosinophils/100 leukocytes 1 % 0-10 Automated blood basophils/100 leukocytes 0 % 0-10 Blood neutrophils automated count (number/volume) 6.1 10*3 1.8-7.8 Blood lymphocytes automated count (number/volume) 1.4 10*3 1.0-4.0 Blood monocytes automated count (number/volume) 0. 8 10*3 0.0-1.0 Automated eosinophil count 0.1 10*3/uL 0 .0-0.3 Automated blood basophil count (count/volume) 0.0 10*3/uL 0.0-0.1 Comprehensive metabolic panel - 07/13/17 06:07 Serum or plasma sodium measurement (moles/volume) 139 mmol/L 135-145 Serum or plasma potassium measurement (moles/volume) 3.7 mmol/L 3.6-5.0 Serum or plasma chloride measurement (moles/volume) 107 mmol/L 98-107 Carbon dioxide 23 mmol/L 21-32 Serum or plasma anion gap determination (moles/volume) 9 mmol/L 5-14 Serum or plasma urea nitrogen measurement (mass/volume ) 4 mg/dL 7-18 Serum or plasma creatinine measurement (mass/volume) 0.57 mg/dL 0.60-1.30 Serum or plasma urea nitrogen/creatinine mass ratio 7 NRG Serum or plasma creatinine measurement w ith calculation of estimated glomerular filtration rate > NRG Serum or plasma glucose measurement (mass/volume) 119 mg/dL 70-105 Serum or plasma calcium measurement (mass/volume) 8.3 mg/dL 8.5-10.1 Serum or plasma total bilirubin measurement (mass/volu me) 0.8 mg/dL 0.1-1.0 Serum or plasma alkaline phosphatase lexy surement (enzymatic activity/volume) 79 U/L 40-136 Serum or plasma aspartate aminotransfera se measurement (enzymatic activity/volume) 12 U/L 5-34 Serum or plasma alanine aminotransferase measurement (enzymatic activity/volume) 14 U/L 0-55 Serum or plasma protein measurement (mass/volume) 5.5 g/dL 6.4-8.2 Serum or plasma albumin measurement (mass/volume) 3.1 g/dL 3.2-4.5 Capillary blood glucose measurement by g lucometer (mass/volume) - 07/13/17 06:32 Capillary blood glucose measurement by glucometer (mas s/volume) 123 mg/dL 70-110 DIMER TEST - 09/23/19 13:14 D-Dimer 0.46 ug/mL FEU 0.27-0.42 CBCA - 09/23/19 13:15 RBC 4.68 M/uL 4.00-5.40 RDW 12.6 % 11.5-14.0 WBC 7.5 k/uL 4.0-10.5 MCHC 33.6 g/dL 32.0-36.0 MCH 31.8 pg 27.0-31.0 Platelet Clumps 0 0-100 MCV 94.9 fL 78.0-100.0 Nucleated RBC Absolute 0.0 /uL 0.0-0.0 HCT 44.4 % 37.0-47.0 MPV 9.3 fL 8.0-11.7 Hgb 14.9 g/dL 12.0-16.0 Platelet Count 208 k/uL 150-450 Differential? Auto NRG CARDIAC MARKER, 0 HR WITH REFLEX - 09/23 13:15 Troponin T <0.01 ng/mL 0.00-0.02 Myoglobin 69 ng/mL 0-70 URINALYSIS, CULTURE IF INDICATED - 09/23 16:21 Method of Collection, UA CATH NRG Color, UA Yellow Colorless Blood, UA Negative mg/dL Negative Specific [place], UA 1.022 1.003-1.0 30 Leukocyte Esterase Trace Melissa/uL Negative Ketones, UA 80 mg/dL Negative Nitrites, UA Positive Negative Bilirubin, UA Negative mg/dL Negative Glucose, UA Negative mg/dL Negative Urobilinogen, UA 6 mg/dL Normal Protein, UA 10 mg/dL Negative Clarity, UA Slightly Cloudy Clear pH, UA 6.0 NRG URINE CULTURE - 09/23/19 16:21 Final >100,000 Cfu/Ml Escherichia coli NRG Organism CD:[id number] NRG DANIAL - 09/23/19 16:35 Organism CD:[id number] NRG Amp >=32 NRG Amp/Sul 4 NRG Azt <=1 NRG Cefaz <=4 NRG Cefep <=1 NRG Ceftaz <=1 NRG Ceftri <=1 NRG ETP <=0.5 NRG Gent >=16 NRG Levo >=8 NRG Najma <=0.25 NRG Nitro <=16 NRG Pip/Juan José <=4 NRG Tobra 2 NRG SXT >=320 NRG ESBL NRG CBCA - 10/07/19 12:28 RBC 4.76 M/uL 4.00-5.40 RDW 13.2 % 11.5-14.0 WBC 6.0 k/uL 4.0-10.5 MCHC 32.5 g/dL 32.0-36.0 MCH 31.5 pg 27.0-31.0 Platelet Clumps 10 0-100 MCV 96.8 fL 78.0-100.0 Nucleated RBC Absolute 0.0 /uL 0.0-0.0 HCT 46.1 % 37.0-47.0 MPV 9.5 fL 8.0-11.7 Hgb 15.0 g/dL 12.0-16.0 Platelet Count 204 k/uL 150-450 Differential? Auto NRG LACTIC ACID - 10/07/19 12:28 Lactic Acid Level 1.0 mmol/L 0.5-2.0 LIPASE - 10/07/19 12:28 Lipase 14 unit/L 8-57 Complete urinalysis with reflex to cultu re - 04/22/20 02:43 Urine color determination DARK YELLOW N RG Urine clarity determination SL CLOUDY N RG Urine pH measurement by test strip 6.0 5-9 Specific gravity of urine by test strip >= 1.016-1.022 Urine protein assay by test strip, semi-quantitative NEGATIVE NEGATIVE Urine glucose detection by automated test strip NE GATIVE NEGATIVE Erythrocytes detection in urine sediment by light micr oscopy NEGATIVE NEGATIVE Urine ketones detection by automated test strip NE GATIVE NEGATIVE Urine nitrite detection by test strip POSITIVE NEGATIVE Urine total bilirubin detection by test strip NEGA TIVE NEGATIVE Urine urobilinogen measurement by automated test strip (mass/volume) 2.0 mg/dL < = 1.0 Urine leukocyte esterase detection by dipstick NEG ATIVE NEGATIVE Automated urine sediment erythrocyte cou nt by microscopy (number/high power field) NONE NRG Automated urine sediment leukocyte count by microscopy (number/high power field) [HPF] NRG Bacteria detection in urine sediment by light microsco py FEW NRG Squamous epithelial cells detection in u rine sediment by light microscopy RARE NRG Crystals detection in urine sediment by light microsco py NONE NRG Casts detection in urine sediment by light microscopy NONE NRG Mucus detection in urine sediment by light microscopy NEGATIVE NRG Complete urinalysis with reflex to culture YES NRG Complete blood count (CBC) with automate d white blood cell (WBC) differential - 04/22/20 02:50 Blood leukocytes automated count (number/volume) 6.5 10*3/uL 4.3-11.0 Blood erythrocytes automated count (number/volume) 4.90 10*6/uL 4.35-5.85 Venous blood hemoglobin measurement (mass/volume) 15.4 g/dL 11.5-16.0 Blood hematocrit (volume fraction) 46 % 35-52 Automated erythrocyte mean corpuscular volume 94 [ foz_us] 80-99 Automated erythrocyte mean corpuscular h emoglobin (mass per erythrocyte) 31 pg 25-34 Automated erythrocyte mean corpuscular h emoglobin concentration measurement (mass/volume) 34 g/dL 32-36 Automated erythrocyte distribution width ratio 13. 2 % 10.0- 14.5 Automated blood platelet count (count/volume) 206 10*3/uL 130-400 Automated blood platelet mean volume measurement 9.4 [foz_us] 7.4-10.4 Automated blood neutrophils/100 leukocytes 64 % 42-75 Automated blood lymphocytes/100 leukocytes 27 % 12-44 Blood monocytes/100 leukocytes 7 % 0-12 Automated blood eosinophils/100 leukocytes 2 % 0-10 Automated blood basophils/100 leukocytes 0 % 0-10 Blood neutrophils automated count (number/volume) 4.2 10*3 1.8-7.8 Blood lymphocytes automated count (number/volume) 1.7 10*3 1.0-4.0 Blood monocytes automated count (number/volume) 0. 5 10*3 0.0-1.0 Automated eosinophil count 0.1 10*3/uL 0 .0-0.3 Automated blood basophil count (count/volume) 0.0 10*3/uL 0.0-0.1 Comprehensive metabolic panel - 04/22/20 02:50 Serum or plasma sodium measurement (moles/volume) 141 mmol/L 135-145 Serum or plasma potassium measurement (moles/volume) 4.0 mmol/L 3.6-5.0 Serum or plasma chloride measurement (moles/volume) 109 mmol/L 98-107 Serum or plasma glucose measurement (mass/volume) 164 mg/dL 70-105 Serum or plasma calcium measurement (mass/volume) 8.5 mg/dL 8.5-10.1 Serum or plasma protein measurement (mass/volume) 6.3 g/dL 6.4-8.2 Serum or plasma albumin measurement (mass/volume) 3.4 g/dL 3.2-4.5 CALCIUM CORRECTED 9.0 mg/dL 8.5-10.1 Encounters ACCT No. Visit Date/Time Discharge Status Pt. Type Provider Facility Loc./Unit Complaint [id number] 12/18/2016 14:37:00 12/18/2016 23:59: 00 DIS Outpatient YOANDY SMITH [id number] 10/07/2019 20:20:07 ACT Document Registration [id number] 07/12/2017 22:56:00 017 13:00:00 DIS Inpatient JOSÉ MIGUEL CLEARY MD [facility] 4TH ABDOMINAL PAIN RUB MULT IPLE HERNIAS [id number] 01/07/2017 20:02:00 017 23:59:59 CLS Outpatient YOANDY SMITH MD [facility] LAB COUGH, ASPIRATION [id number] 06/25/2015 13:50:00 015 23:59:59 CLS Outpatient YOANDY SMITH MD [facility] RT TOBACCOISM,SOA [id number] 10/16/2014 14:15:00 014 23:59:59 CLS Preadmit YOANDY SMITH MD [facility] RT TOBACCOISM,COPD [id number] 12/22/2013 21:35:00 014 00:33:00 DIS Emergency SCOUT LOVING [facility] ER FALL;LEFT KNEE PAIN [id number] 04/22/2020 02:28:[address] Emergency WOOD ORTIZ MD [facility] ER ABD PAIN [id number] 03/02/2011 05:57:00 Document Registration [id number] 02/23/2011 08:49:00 Document Registration [id number] 01/31/2011 16:47:00 Document Registration [id number] 01/14/2011 21:40:00 Document Registration [id number] 01/11/2011 19:29:00 Document Registration [id number] 06/27/2010 13:22:00 Document Registration [id number] 05/22/2019 11:05:00 05/22/2019 23:59:5 9 CLS Outpatient NORMA NIETO [facility] [id number] 10/07/2019 11:36:00 9 15:32:00 DIS Emergency Deniz Lin [facility] ER Abdominal Pain [id number] 09/23/2019 12:07:00 9 19:31:00 DIS Emergency [place] [facility] ER Difficulty Breathing [id number] 10/07/2019 11:36:00 Document Registration [id number] 09/23/2019 12:07:00 Document Registration [id number] 12/06/2011 10:27:00 12/06/2011 23:59: 59 CLS Outpatient
--- OUTSIDE RECORDS SUMMARY | 2020-04-22 03:23 | XMS REPORT ---
Author Author Yomaira NIETO Organization [facility] Address [address] [place] [address] Care Team Providers Care Wire Roller Name Role Phone NORMA NIETO Unavailable PROBLEMS Type Condition ICD9-CM Code [id number] Code Onset Dates Condition S tatus SNOMED Code Problem Mild persistent reactive airway disease without complicati on J45.30 Active 188934472 Problem Morbid (severe) obesity due to excess calories E66 .01 Active 679682344 Problem Anxiety F41.9 Active 90707251 Problem Chronic edema R60.9 Active 086232 008 Problem Body mass index (BMI) of 60.0-69.9 in adult Z68.44 Active 103230840 Problem Abdominal wall hernia K43.9 Active 264390206 Problem Seizure-like activity R56.9 Active [id number] ALLERGIES No Information ENCOUNTERS Encounter Location Date Diagnosis [facility] [address] [id number] [address] [place] [phone] Jan, [facility] [address] [phone] Jan, Anxiety F41.9 and Morbid (se lillie) obesity due to excess calories E66.01 [facility] [address] [address] [id number] [address] [place] [address] Jan, Anxiety F41.9 and Morbid (se lillie) obesity due to excess calories E66.01 [facility] [address] [id number] [address] [place] [phone] Jan, [facility] [address] [id number] [address] [place] [address] Dec, [facility] [address] [phone] Sep, [facility] [address] [facility] [id number] [address] [place] [phone] Aug, [facility] [address] [facility] [id number] [address] [place] [phone] Aug, [facility] [address] [facility] [id number] [address] [place] [phone] Jul, Abdominal wall hernia K43.9 ; Seizure-like activity R56.9 ; Chronic edema R60.9 ; Mild persistent reactive airway disease without complication J45.30 ; Anxiety F41.9 ; Body mass index (BMI) of 60.0-69.9 in adult Z68.44 and Morbid (severe) obesity due to excess calories E66.01 [facility] [address] [place] [id number] [place] [id number] Jun, [facility] [address] [facility] [id number] [address] [place] [phone] Feb, [facility] [address] [id number] [address] [place] [phone] Feb, [facility] [address] [facility] [id number] [address] [place] [phone] Jun, [facility] [address] [facility] [id number] [address] [place] [phone] Nov, [facility] [address] [facility] [id number] [address] [place] [phone] Aug, [facility] [address] [id number] [address] [place] [phone] Nov, [facility] [address] [facility] [id number] [address] [place] [phone] Nov, [facility] [address] [facility] [id number] [address] [place] [phone] Nov, [facility] [address] [facility] [id number] [address] [place] [phone] Nov, [facility] [address] [facility] [id number] [address] [address] Nov, [facility] [address] [facility] [id number] [address] [place] [phone] Oct, IMMUNIZATIONS No Known Immunizations SOCIAL HISTORY Never Assessed REASON FOR VISIT refill request PLAN OF CARE VITAL SIGNS MEDICATIONS Medication Instructions Dosage Frequency Start Date End Date Duration S tatus Omeprazole 20 mg Orally twice a day 1 tablet 12h Active Trazodone HCl 150 MG Orally Once a day 1 tablet at bedtime 24h Active Pravastatin Sodium 20 mg Orally Once a day 1 tablet 24h Active Aripiprazole 5 mg Orally Once a day 1 tablet 24h Active Sertraline HCl 50 mg Orally Once a day 1 1/2 tablet 24h Active RESULTS No Results PROCEDURES [...] gastric sleeve 2016 Hospitalization History abdominal pain, hernia-[facility] 07/12/17
--- OUTSIDE RECORDS SUMMARY | 2020-04-22 03:23 | XMS REPORT ---
Author Author Yomaira NIETO Organization [facility] Address [address] [place] [address] Care Team Providers Care Environmental Sciences Professor Name Role Phone NORMA NIETO Unavailable PROBLEMS Type Condition ICD9-CM Code [id number] Code Onset Dates Condition S tatus SNOMED Code Problem Mild persistent reactive airway disease without complicati on J45.30 Active 312148384 Problem Morbid (severe) obesity due to excess calories E66 .01 Active 110331470 Problem Anxiety F41.9 Active 54927912 Problem Chronic edema R60.9 Active 803544 008 Problem Body mass index (BMI) of 60.0-69.9 in adult Z68.44 Active 865961459 Problem Abdominal wall hernia K43.9 Active 894502829 Problem Seizure-like activity R56.9 Active 137315970 ALLERGIES Substance Reaction Event Type Date Status Phenobarbital Unknown Drug Allergy Jul, Active Ativan hives Drug Allergy Jul, Active Latex Unknown Non Drug Allergy Jul, Active ENCOUNTERS Encounter Location Date Diagnosis [place] [id number] [place] [id number] [address] [place] [phone] Jan, [facility] [address] [id number] [address] [place] [address] Jan, Anxiety F41.9 and Morbid (se lillie) obesity due to excess calories E66.01 [facility] [address] [facility] [id number] [address] [place] [address] Jan, Anxiety F41.9 and Morbid (se lillie) obesity due to excess calories E66.01 [facility] [address] [facility] [id number] [address] [place] [phone] Jan, [facility] [address] [place] [id number] [address] [place] [phone] Dec, [facility] [address] [facility] [id number] [address] [place] [phone] Sep, [facility] [address] [facility] [id number] [address] [place] [phone] Aug, [facility] [address] [facility] [id number] [address] [place] [phone] Aug, [facility] [address] [facility] [id number] [address] [place] [phone] Jul, Abdominal wall hernia K43.9 ; Seizure-like activity R56.9 ; Chronic edema R60.9 ; Mild persistent reactive airway disease without complication J45.30 ; Anxiety F41.9 ; Body mass index (BMI) of 60.0-69.9 in adult Z68.44 and Morbid (severe) obesity due to excess calories E66.01 [facility] [address] [place] [id number] [place] [id number] Jun, [facility] [address] [facility] [id number] [address] [place] [phone] Feb, [facility] [address] [facility] [id number] [address] [place] [phone] Feb, [facility] [address] [facility] [id number] [address] [place] [phone] Jun, [facility] [address] [facility] [id number] [address] [place] [phone] Nov, [facility] [address] [facility] [id number] [address] [place] [phone] Aug, [facility] [address] [facility] [id number] [address] [place] [phone] Nov, [facility] [address] [facility] [id number] [address] [place] [phone] Nov, [facility] [address] [facility] [id number] [address] [place] [phone] Nov, [facility] [address] [facility] [id number] [address] [place] [phone] Nov, [facility] [address] [facility] [id number] [address] [place] [phone] Nov, [facility] [address] [facility] [id number] [address] [place] [phone] Oct, IMMUNIZATIONS No Known Immunizations SOCIAL HISTORY Never Assessed REASON FOR VISIT [facility], Previously seen by Dr. Vanna Perry. , Needing referral to see neurology at . , States she was told she was diabetic at -GI PLAN OF CARE Activity Details Follow Up 3 Months with Naila clark/maria r [facility] Reason: VITAL SIGNS Height 64 in 2017-08-10 Weight 387 lbs 2017-08-10 Temperature 97.7 degrees Fahrenheit 2017-08-10 Heart Rate 94 bpm 2017-08-10 Respiratory Rate 22 2017-08-10 BMI 66.42 kg/m2 2017-08-10 Blood pressure systolic 128 mmHg 2017-08-10 Blood pressure diastolic 73 mmHg 2017-08-10 MEDICATIONS Medication Instructions Dosage Frequency Start Date End Date Duration S tatus Omeprazole 20 mg Orally twice a day 1 tablet 12h Active Pravastatin Sodium 20 mg Orally Once a day 1 tablet 24h Active Vistaril 25 MG Orally every 8 hrs 1 capsule as needed 8h Active Levetiracetam 500 mg Orally Twice a day 1 tablet 12h Active Furosemide 40 mg Orally twice a day 1 tablet 12h Active Meclizine HCl 25 MG Orally TID PRN 1 tablet as needed Active Sertraline HCl 50 mg Orally Once a day 1 1/2 tablet 24h Active Albuterol Sulfate (2.5 MG/3ML) 0.083% Inhalation every 4 hours as n eeded 3 ml Active ProAir HFA 108 (90 Base) MCG/ACT Inhalation every 4 hrs 2 puffs as ne eded 4h Active Ondansetron 8 MG Orally every 6 hrs as needed 1 tablet on the tongue and allow to dissolve Active Trazodone HCl 150 MG Orally Once a day 1 tablet at bedtime 24h Active Lisinopril 20 mg Orally Once a day 1 tablet 24h Nov, Active Aripiprazole 5 mg Orally Once a [...] gastric sleeve 2016 Hospitalization History abdominal pain, hernia-[facility] 07/12/17
--- OUTSIDE RECORDS SUMMARY | 2020-04-22 03:23 | XMS REPORT ---
Author Author Yomaira NIETO Organization [facility] Address [address] [place] [address] Care Team Providers Care Outbound Sales Professional Name Role Phone NORMA NIETO Unavailable PROBLEMS Type Condition ICD9-CM Code [id number] Code Onset Dates Condition S tatus SNOMED Code Problem Mild persistent reactive airway disease without complicati on J45.30 Active 158156152 Problem Morbid (severe) obesity due to excess calories E66 .01 Active 118894887 Problem Anxiety F41.9 Active 88323364 Problem Chronic edema R60.9 Active 827658 008 Problem Body mass index (BMI) of 60.0-69.9 in adult Z68.44 Active 646997587 Problem Abdominal wall hernia K43.9 Active 858502685 Problem Seizure-like activity R56.9 Active 077836154 ALLERGIES No Information ENCOUNTERS Encounter Location Date Diagnosis [facility] [address] [id number] [address] [place] [phone] Jan, [facility] [address] [address] Jan, Anxiety F41.9 and Morbid (se lillie) obesity due to excess calories E66.01 [facility] [address] [address] [id number] [address] [place] [phone] Jan, Anxiety F41.9 and Morbid (se lillie) obesity due to excess calories E66.01 [facility] [address] [id number] [address] [place] [phone] Jan, [facility] [address] [id number] [address] [place] [phone] Dec, [facility] [address] [address] Sep, [facility] [address] [facility] [id number] [address] [place] [phone] Aug, [facility] [address] [facility] [id number] [address] [place] [phone] Aug, [facility] [address] [facility] [id number] [address] [place] [phone] Jul, Abdominal wall hernia K43.9 ; Seizure-like activity R56.9 ; Chronic edema R60.9 ; Mild persistent reactive airway disease without complication J45.30 ; Anxiety F41.9 ; Body mass index (BMI) of 60.0-69.9 in adult Z68.44 and Morbid (severe) obesity due to excess calories E66.01 [facility] [address] [place] [id number] [place] [id number] Jun, [facility] [address] [facility] [id number] [address] [place] [phone] Feb, [facility] [address] [id number] [address] [place] [phone] Feb, [facility] [address] [facility] [id number] [address] [place] [phone] Jun, [facility] [address] [facility] [id number] [address] [place] [phone] Nov, [facility] [address] [facility] [id number] [address] [place] [phone] Aug, [facility] [address] [id number] [address] [place] [phone] Nov, [facility] [address] [facility] [id number] [address] [place] [phone] Nov, [facility] [address] [facility] [id number] [address] [place] [phone] Nov, [facility] [address] [facility] [id number] [address] [place] [phone] Nov, [facility] [address] [facility] [id number] [address] [place] [phone] Nov, [facility] [address] [facility] [id number] [address] [place] [phone] Oct, IMMUNIZATIONS No Known Immunizations SOCIAL HISTORY Never Assessed REASON FOR VISIT Home care PLAN OF CARE VITAL SIGNS MEDICATIONS [...] gastric sleeve 2016 Hospitalization History abdominal pain, hernia-[facility] 07/12/17
[2020-04-22 03:24] LABS: ALKALINE PHOSPHATASE 78 U/L (40-136); CREATININE SERUM 0.59 MG/DL (0.60-1.30); GFR ESTIMATED > 60
[2020-04-22 03:25] LABS: BUN/CREATININE RATIO 14
[2020-04-22 03:27] LABS: ALANINE AMINOTRANSFERASE 7 U/L (0-55)
[2020-04-22] MEDS ORDERED: CEPHALEXIN 250 MG (KEFLEX) CAP PO ONE (03:30)
[2020-04-22] MEDS ORDERED: OMEP40CA27 PO (03:45)
[2020-04-22] MEDS ORDERED: CEPH500T PO (03:47)
[2020-04-22 04:02] VITALS: BP 139/80
[2020-04-22 04:46] LABS: LIPASE 72 U/L (8-78)
--- NOTE | 2020-04-22 05:25 | Diagnostic Imaging Report ---
INDICATION: Nausea. Epigastric pain. COMPARISON: 12/22/2013 FINDINGS: Single frontal view of the chest demonstrates normal heart size and pulmonary vascularity. The lungs are well aerated and clear. No large pleural effusion or pneumothorax is seen. The visualized osseous structures show no acute abnormalities. IMPRESSION: 1. No acute cardiopulmonary process. Dictated by: Dictated on workstation # [id number]
--- NOTE | 2020-04-22 07:09 | Diagnostic Imaging Report ---
PROCEDURE: CT abdomen and pelvis without contrast. TECHNIQUE: Multiple contiguous axial images were obtained through the abdomen and pelvis without the use of intravenous contrast. Auto Exposure Controls were utilized during the CT exam to meet ALARA standards for radiation dose reduction. INDICATION: Epigastric pain. Nausea. Multiple hernia surgeries. COMPARISON: 07/12/2017. FINDINGS: Lung bases are clear. There are multiple large abdominal wall hernias primarily along the right side of the abdomen. These contain a majority of the small bowel and colon. The largest hernia measures at least 12 cm the opening. A more inferior and midline hernia measures at least 10 cm. Although there is no dilatation of the involved bowel, some of the loops of bowel are out of the zcigf-tj-ajaw. There are postoperative changes in the anterior abdominal wall related to prior hernia repairs. The liver, gallbladder, pancreas, spleen, adrenals, kidneys, ureters and decompressed bladder are negative on this noncontrast exam. Reproductive structures are grossly unremarkable. The appendix is not identified. Large amount of stool in the rectum. The visualized colon is otherwise decompressed. No free intraperitoneal air or fluid within the [id number]-rvdp. No lymphadenopathy. No acute osseous findings. IMPRESSION: Multiple large anterior abdominal wall hernias primarily on the right side. These contain a majority of the small bowel and colon, some of which is out of the jvotj-cq-wsrl. No bowel dilatation within the nytlw-nz-gcii to suggest obstruction. These hernias demonstrate large openings measuring 10 to 12 cm at least. Dictated by: Dictated on workstation # [id number]
--- NOTE | 2020-04-23 19:18 | NUR ---
[facility] dept called at this time. Had questions regarding pt's belongings (phone, wallet, meds). This RN told sherriff there were no belongings other than a blanket and pillow. Dr. Mann verified while pt was here and checked belonging bag without finding a phone, wallet, or meds. Notified iglesia that we will call back if anything is found.
== END 2020-04-22 04:01 | disposition home or self-care (01) ==
LOC: EDUNIT# 02:26 → ER 02:28
DX: K29.70 Gastritis, unspecified, without bleeding (principal); K29.80 Duodenitis without bleeding; F41.9 Anxiety disorder, unspecified; N39.0 Urinary tract infection, site not specified; J44.9 Chronic obstructive pulmonary disease, unspecified; G40.909 Epilepsy, unspecified, not intractable, without status epilepticus; E11.9 Type 2 diabetes mellitus without complications; F32.9 Major depressive disorder, single episode, unspecified; F17.210 Nicotine dependence, cigarettes, uncomplicated; F17.290 Nicotine dependence, other tobacco product, uncomplicated; Z91.040 Latex allergy status; Z88.1 Allergy status to other antibiotic agents; Z88.8 Allergy status to other drugs, medicaments and biological substances; Z80.0 Family history of malignant neoplasm of digestive organs; Z82.49 Family history of ischemic heart disease and other diseases of the circulatory system
CPT/HCPCS: 36415; 71045; 74176; 80053; 81000; 83690; 84484; 85025; 86141; 87077; 87088; 87186; 93005; 94640

== ENCOUNTER 2020-05-04 10:38 | Emergency (ER) | payer MEDICAID ==
[~2020-05-04] VITALS: Ht 165 cm; Wt 172.3 kg
[~2020-05-04 10:38] MED LIST changes: +CEPH500T PO; +OMEP40CA27 PO
--- OUTSIDE RECORDS SUMMARY | 2020-05-04 10:43 | XMS REPORT ---
Author Author [employer] 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 Name Role Phone MADIHA JOSÉ MIGUEL Unavailable GAULT, NORMA Unavailable GAULT, NORMA Unavailable [...] Riley Unavailable Unavailable Riley, Deniz Unavailable Unavailable YOANDY SMITH MD Unavailable Unavailable JOSÉ MIGUEL CLEARY MD Unavailable Unavailable JOSÉ MIGUEL CLEARY MD Unavailable Unavailable WOOD ORTIZ MD Unavailable Unavailable IDRIS ZAMAN Unavailable Unavailable Unavailable Unavailable Unavailable Unavailable Unavailable Unavailable Unavailable Unavailable Unavailable Allergies Normalized Allergy Reported Date of Reaction(s) Care Provider Facility Allergy Type classification allergen Allergy Onset Substance Contrast Media Contrast media no information JASVIR Guan Alberto Allergy (1 [facility] source[facility] Hospital (57455) Drug Allergy Iodine (and Iodine 03-02-2011 - "ILL" SCOUT Not Available (21 sources.) Iodine RAQUEL CALIXTO (99186) containting drugs) Drug Allergy Anti-Epileptic Phenytoin 07-12-2017 - no informatio johnathan SMITH [facility] Via (24 sources.) Agents , [facility] (37043) Drug Allergy Sulfonamides Sulfonamides no information JASVIR Dominguez (1 source.) (antibiotic) (Antibiotic) [facility] (18638) Drug Allergy Glycopeptides Vancomycin 03-02-2011 - CASSIA MOJICA Not Available (21 sources.) (antibiotic) RAQUEL CALIXTO (06796) Medications Medication Ingredient Drug Dose Dates Status [...] tus Duration Other lower Acute Episodic Active Fco Larson Lawrenc e respiratory respiratory [facility] disease (1 distress Hospital source.) (04747) Otitis media Acute Episodic Active IDRIS Olguin ity and related suppurative 89212 (Other Health Center conditions (1 otitis media Phone: of [facility] source.) without ) [place] (62695) spontaneous rupture of ear drum, right ear Translations: [ - Non-recurrent acute suppurative otitis media of right ear without spontaneous rupture of tympanic membrane H66.001] Other Bariatric 04-21-2020 - Episodic Active JOSÉ MIGUEL MADIHA [facility] Via gastrointestin surgery status , MD [place] chen disorders Translations: Hospital - (11 sources.) [ Bariatric [place] surgery (60614) status] Other Body mass Chronic Active [facility] nutritional; index (BMI) [facility] endocrine; and 60.0-69.9, of [facility] metabolic adult [place] (25205) disorders (6 Translations: sources.) [ - Body mass index (BMI) of 60.0-69.9 in adult Z68.44, Body mass index (BMI) 60.0-69.9, adult] Other Body mass Chronic Active [facility] nutritional; index 40+ - [facility] endocrine; and severely obese of [facility] metabolic Translations: [place] (19622) disorders (8 [ Body mass sources.) index (BMI) of 60.0-69.9 in adult, Morbid (severe) obesity due to excess calories] Chronic Chronic 04-21-2020 - Chronic Active JOSÉ MIGUEL MADIHA [facility] Via obstructive obstructive , [facility] pulmonary pulmonary Hospital - disease and disease, [place] bronchiectasis unspecified (54798) (13 sources.) Other lower Cough 04-22-2020 - Episodic Active YOANDY NIX JORDON [facility] Via respiratory , MD [facility] disease (7 Hospital - sources.) [place] (33978) Other lower Dyspnea, Episodic Active Fco Porter e respiratory unspecified [facility] disease (1 Hospital source.) (44967) Residual Edema Episodic Active [facility] codes; Translations: [facility] unclassified [ Chronic of [place] (4 sources.) edema] [place] (59507) Epilepsy; Epilepsy, 04-21-2020 - Chronic Active JOSÉ MIGUELAASHISH CLEARY [facility] Via convulsions unspecified, , MD [facility] (13 sources.) not Hospital - intractable, [place] without status (84340) epilepticus Residual Family history 04-24-2020 - Episodic Active WOOD WEL LER , [facility] Via codes; of ischemic [facility] unclassified heart disease Hospital - (4 sources.) and other [place] diseases of (57964) the circulatory system Residual Family history 04-24-2020 - Episodic Active WOOD WEL LER , [facility] Via codes; of malignant [facility] unclassified neoplasm of Hospital - (4 sources.) digestive [place] organs (90008) Gastritis and Gastritis, 04-24-2020 - Episodic Active WOOD WE LLER , [facility] Via duodenitis (8 unspecified, MD [facility] sources.) without Hospital - bleeding [place] Translations: (00656) [ DUODENITIS WITHOUT BLEEDING] Abdominal pain Generalized 04-24-2020 - Episodic Active Fco Dominguez (9 sources.) abdominal pain [facility] Translations: Hospital [ Unspecified (38384) abdominal pain, Generalized abdominal pain, EPIGASTRIC PAIN] Allergic Latex allergy 04-24-2020 - Episodic Active WOOD WELL ER , [facility] Via reactions (12 status MD [facility] sources.) Translations: Hospital - [ ALLERGY [place] STATUS TO (44593) OTHER ANTIBIOTIC AGENT, ALLERGY STATUS TO OTH DRUG/MEDS/BIOL SUB] Other nursing home Episodic Active Deniz Dominguez aftercare (2 (current) use [facility] sources.) of oral Hospital hypoglycemic (89034) drugs Mood disorders Major 04-24-2020 - Chronic Active WOOD WEL LER , [facility] Via (4 sources.) depressive [facility] disorder, Hospital - single [place] episode, (28841) unspecified Other Neurological Episodic Active [facility] connective finding [facility] tissue disease Translations: of [facility] (3 sources.) [ Seizure-like [place] (51412) activity] Other Obesity, Chronic Active Deniz Dominguez nutritional; unspecified [facility] endocrine; and Hospital metabolic (15843) disorders (2 sources.) Other Other long 04-21-2020 - Episodic Active JOSÉ MIGUEL MADIHA [facility] Via aftercare (11 term (current) , MD [facility] sources.) drug therapy Hospital - Translations: [place] [ Other long (56483) term (current) drug therapy] Screening and Personal Episodic Active Fco marquese history of history of [facility] and substance dependence (15408) abuse codes (3 sources.) Other lower Shortness of 04-21-2020 - Episodic Active YOANDY Larisa SALAZAR [facility] Via respiratory breath , MD [facility] disease (6 Hospital - sources.) [place] (21860) Residual Sleep apnea, 04-21-2020 - Chronic Active JOSÉ MIGUEL JOHN CH [facility] Via codes; unspecified , MD [facility] unclassified Hospital - (6 sources.) [place] (93134) Substance-rela Tobacco use 04-21-2020 - Chronic Active YOANDY MSITH [facility] Via zahra disorders disorder , MD [facility] (21 sources.) Translations: Hospital - [ NICOTINE [place] DEPENDENCE, (45167) CIGARETTES, UNCOMPL, - Amphetamine and other psychostimulan t dependence, 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 source.) otitis ) [place] (40157) externa, right ear Translations: [ - Acute otitis externa of right ear, unspecified type H60.501] Urinary tract Urinary tract 04-24-2020 - Episodic Active WOOD ORTIZ [facility] Via infections (4 infection, MD [facility] sources.) site not Hospital - specified [place] (93142) Malaise and Weakness Episodic Active Fco Larson Lawrenc e fatigue (1 [facility] source.) Hospital (78785) Other lower Wheezing 04-21-2020 - Episodic Active YOANDY NIX [facility] Via respiratory MD [facility] disease (6 Hospital - sources.) [place] (41409) Past or Other Problems Problem Normalized Date Last Normalized Normalized Provider Fa cility Classification Problem(s) Recorded Problem Problem Sta tus Duration Superficial Contusion of Episodic Completed SCOUT Not Debbie ilable injury; knee RAQUEL CALIXTO (23663) contusion (1 source.) External cause Fall from no information no information SCOUT Not Available codes: other RAQUEL CALIXTO (51688) Overexertion slipping, (1 source.) tripping, or stumbling External cause Home accidents no information no information GRE TCHEN Not Available codes: Place RAQUEL CALIXTO (45333) of occurrence (1 source.) Other injuries Knee, leg, Episodic Completed SCOUT Not Av ailable and conditions ankle, and RAQUEL CALIXTO (71526) due to foot injury external causes (1 source.) Other injuries Nonspecific Episodic Completed SCOUT Not A vailable and conditions abnormal RAQUEL CALIXTO (38257) due to toxicological external findings causes (1 source.) External cause Other external no information no information GRE TCHEN Not Available codes: cause status RAQUEL CALIXTO (27586) Unspecified (1 source.) Residual Sleep apnea, no information no information JOSÉ MIGUEL VU Not Available codes; unspecified MD (88934) unclassified (3 sources.) Procedures Procedure Normalized Procedure Procedure Result Performer Facility Date 10-07-2019 Ther proph/dx njx iv no information no name [facility]/[address] [place] [address] (14569) sbst/drug 09-23-2019 Ther proph/dx njx iv no information no name [facility]/[address] [place] [address] (60599) sbst/drug 10-07-2019 Therapeutic injection no information no name [facility] iv [facility] (97790) 09-23-2019 Therapeutic injection no information no name [facility] iv [facility] (53524) Immunizations Normalized Immunization Date Notes Care Provider Facili ty Immunization pneumococcal 05-09-2018 no information no name [facility]. polysaccharide [facility] vaccine, 23 valent [facility] (20360) tetanus toxoid, 05-14-2013 no information no name Not Debbie ilable reduced diphtheria (25768) toxoid, and acellular pertussis vaccine, adsorbed Results Test Name Value Interpretation Reference Range Date Time Fa cility (Normalized) (Normalized) (Medline Reference) not yet categorized on 2020-04-21 COLONY COUNT >100,000/ML (no code) 04-21-2020 PENDING LOCAT ION 22:43-0400 [facility] (04808) RAPID ID CONTACT (no code) 04-21-2020 PENDING LOCATI ON PERCAUTIONS 22:43-0400 [facility] (97580) SUSCEPTIBILITY SUSCEPTIBILITY (no code) 04-21-2020 PENDING LOCATION REPORTED 22:43-0400 [facility] (48456) 6-, 1014 laboratory on 2020-04-21 Albumin 3.4 g/dL (NEG) 3.4 - 5.4 g/dL 04-21-2020 PENDING LOCATION [Mass/Vol] 22:50-0400 [facility] (50150) ALP [Catalytic 78 U/L (NEG) 44 - 147 U/L 04-21-2020 PEND ING LOCATION activity/Vol] 22:50-0400 [facility] (66837) ALT [Catalytic 7 U/L (NEG) 4 - 40 U/L 04-21-2020 PENDIN G LOCATION activity/Vol] 22:50-0400 [facility] (08466) Amoxicillin+Clav = (S) 04-21-2020 PENDING L OCATION ulanate DANIAL 22:43-0400 [facility] (10559) [Susc] Ampicillin DANIAL > (R) 04-21-2020 PENDING LOC ATION [Susc] 22:43-0400 [facility] (10594) Anion gap 10 mmol/L (NEG) 3 - 11 mmol/L 04-21-2020 PENDING LOCATION [Moles/Vol] 22:50-0400 [facility] (05015) AST [Catalytic 8 U/L (NEG) 10 - 34 U/L 04-21-2020 PENDI NG LOCATION activity/Vol] 22:50-0400 [facility] (93932) Bacteria [id number] (no code) 04-21-2020 PENDING LOCATI ON identified Cx 22:43-0400 [facility] (11346) Nom (U) Bacteria [id number] (no code) 04-21-2020 PENDING LOCATI ON identified Cx 22:43-0400 [facility] (75316) Nom (U) Bacteria LM Ql FEW (A) 04-21-2020 PENDING LOC ATION (Urine sed) 22:43-0400 [facility] (42238) Basophils (Bld) 0.0 10*3/uL (NEG) 0 - 0.3 10*3/uL 04-21-2020 PENDING LOCATION [#/Vol] 22:50-0400 [facility] (69080) Basophils/100 0 % (NEG) 0.5 - 1 % 04-21-2020 PENDING LOCATION WBC (Bld) 22:50-0400 [facility] (37111) Bilirubin 0.4 mg/dL (NEG) 0.1 - 1.2 mg/dL 04-21-2020 PENDIN G LOCATION [Mass/Vol] 22:50-0400 [facility] (21360) Bilirubin Ql (U) Negative (no code) 04-21-2020 PENDING L OCATION 22:43-0400 [facility] (19068) Calcium 8.5 mg/dL (NEG) 8.5 - 10.2 mg/dL 04-21-2020 PENDI NG LOCATION [Mass/Vol] 22:50-0400 [facility] (37341) Calcium 9.0 mg/dL (NEG) 8.5 - 10.2 mg/dL 04-21-2020 PENDI NG LOCATION [Mass/Vol] 22:50-0400 [facility] (36248) Casts LM Ql NONE (no code) 04-21-2020 PENDING LOCATI ON (Urine sed) 22:43-0400 [facility] (66868) Cefazolin DANIAL 4 (S) 04-21-2020 PENDING LOCA TION [Susc] 22:43-0400 [facility] (91534) Ceftriaxone DANIAL <= (S) 04-21-2020 PENDING LO CATION [Susc] 22:43-0400 [facility] (51548) Chloride 109 mmol/L (H) 95 - 106 mmol/L 04-21-2020 PENDI NG LOCATION [Moles/Vol] 22:50-0400 [facility] (36121) Ciprofloxacin > (R) 04-21-2020 PENDING LOCA TION DANIAL [Susc] 22:43-0400 [facility] (78273) Clarity (U) SL CLOUDY (no code) 04-21-2020 PENDING LOCATI ON 22:43-0400 [facility] (15064) CO2 [Moles/Vol] 22 mmol/L (NEG) 23 - 29 mmol/L 04-21-2020 P ENDING LOCATION 22:50-0400 [facility] (62676) Color (U) DARK YELLOW (no code) 04-21-2020 PENDING LOCATI ON 22:43-0400 [facility] (55497) Creatinine 0.59 mg/dL (L) 04-21-2020 PENDING LOCATI ON [Mass/Vol] 22:50-0400 [facility] (36312) Creatinine and > (no code) 04-21-2020 PENDING LOC ATION Glomerular 22:50-0400 [facility] (27547) filtration rate.predicted panel - Serum, Plasma or Blood CRP [Mass/Vol] 0.90 (H) 04-21-2020 PENDING LOC ATION 22:50-0400 [facility] (15134) Crystals LM Ql NONE (no code) 04-21-2020 PENDING LOC ATION (Urine sed) 22:43-0400 [facility] (62606) Eosinophils 0.1 10*3/uL (NEG) 0.05 - 0.5 04-21-2020 PENDING LOCATION (Bld) [#/Vol] 10*3/uL 22:50-0400 [facility] (68032) Eosinophils/100 2 % (NEG) 1 - 4 % 04-21-2020 PENDIN G LOCATION WBC (Bld) 22:50-0400 [facility] (12685) Epithelial RARE (no code) 04-21-2020 PENDING LOCATI ON cells.squamous 22:43-0400 [facility] (82719) LM Ql (Urine sed) Erythrocyte 13.2 % (NEG) 11.6 - 14.6 % 04-21-2020 PENDIN G LOCATION distribution 22:50-0400 [facility] (46029) width (RBC) [Ratio] Gentamicin DANIAL > (R) 04-21-2020 PENDING LOC ATION [Susc] 22:43-0400 [facility] (99626) Glucose 164 mg/dL (H) 60 - 125 mg/dL 04-21-2020 PENDING LOCATION [Mass/Vol] 22:50-0400 [facility] (48793) Glucose Auto Negative (no code) 04-21-2020 PENDING LOCAT ION test strip Ql 22:43-0400 [facility] (44885) (U) Hematocrit (Bld) 46 % (NEG) 36.1 - 50.3 % 04-21-2020 P ENDING LOCATION [Volume 22:50-0400 [facility] (76856) fraction] Hemoglobin (Bld) 15.4 g/dL (NEG) 12.1 - 17.2 g/dL 04-21-2020 PENDING LOCATION [Mass/Vol] 22:50-0400 [facility] (59871) Ketones Auto Negative (no code) 04-21-2020 PENDING LOCAT ION test strip Ql 22:43-0400 [facility] (41103) (U) Leukocyte Negative (no code) 04-21-2020 PENDING LOCATI ON esterase Test 22:43-0400 [facility] (38120) strip Ql (U) Levofloxacin DANIAL > (R) 04-21-2020 PENDING L OCATION [Susc] 22:43-0400 [facility] (71640) Lipase 72 U/L (NEG) 10 - 73 U/L 04-21-2020 PENDING LO CATION [Catalytic 22:50-0400 [facility] (80170) activity/Vol] Lymphocytes 1.7 10*3/uL (NEG) 0.9 - 2.9 04-21-2020 PENDING LOCATION (Bld) [#/Vol] 10*3/uL 22:50-0400 [facility] (73261) Lymphocytes/100 27 % (NEG) 20 - 40 % 04-21-2020 PENDIN G LOCATION WBC (Bld) 22:50-0400 [facility] (12209) MCH (RBC) 31 pg (NEG) 27 - 31 pg 04-21-2020 PENDING LOC ATION [Entitic mass] 22:50-0400 [facility] (13319) MCHC (RBC) 34 g/dL (NEG) 32 - 36 g/dL 04-21-2020 PENDING LOCATION [Mass/Vol] 22:50-0400 [facility] (56054) MCV (RBC) 94 (NEG) 04-21-2020 PENDING LOCATI ON [Entitic vol] 22:50-0400 [facility] (52603) Meropenem DANIAL <= (S) 04-21-2020 PENDING LOCA TION [Susc] 22:43-0400 [facility] ([id number]) Monocytes (Bld) 0.5 10*3/uL (NEG) 0.3 - 0.9 04-21-2020 PEND ING LOCATION [#/Vol] 10*3/uL 22:50-0400 [facility] (86426) Monocytes/100 7 % (NEG) 2 - 8 % 04-21-2020 PENDING LOCATION WBC (Bld) 22:50-0400 [facility] (80943) MRSA DNA MULTI-DRUG (no code) 04-21-2020 PENDING LOCATI ON JOJO+probe Ql RESISTANT 22:43-0400 [facility] (03187) (Unsp spec) ORGANISM/MDRO Mucus Ql (Urine Negative (no code) 04-21-2020 PENDING LO CATION sed) 22:43-0400 [facility] (17814) Neutrophils 4.2 10*3/uL (NEG) 1.7 - 7 10*3/uL 04-21-2020 PE NDING LOCATION (Bld) [#/Vol] 22:50-0400 [facility] (30466) Neutrophils/100 64 % (NEG) 40 - 60 % 04-21-2020 PENDIN G LOCATION WBC (Bld) 22:50-0400 [facility] (49015) Nitrite Ql (U) Positive (A) 04-21-2020 PENDING LOC ATION 22:43-0400 [facility] (52793) Nitrofurantoin <= (S) 04-21-2020 PENDING LOC ATION DANIAL [Susc] 22:43-0400 [facility] (32892) pH (U) 6.0 [pH] (no code) 4.6 - 8 [pH] 04-21-2020 PENDING L OCATION 22:43-0400 [facility] (62788) Platelet mean 9.4 (NEG) 04-21-2020 PENDING LOCA TION volume (Bld) 22:50-0400 [facility] (68842) [Entitic vol] Platelets (Bld) 206 10*3/uL (NEG) 150 - 450 04-21-2020 PEND ING LOCATION [#/Vol] 10*3/uL 22:50-0400 [facility] (11576) Potassium 4.0 mmol/L (NEG) 3.7 - 5.2 mmol/L 04-21-2020 PEND ING LOCATION [Moles/Vol] 22:50-0400 [facility] (18874) Protein 6.3 g/dL (L) 6.4 - 8.3 g/dL 04-21-2020 PENDING LOCATION [Mass/Vol] 22:50-0400 [facility] (30869) Protein Ql (U) Negative (no code) 04-21-2020 PENDING LOC ATION 22:43-0400 [facility] (74837) RBC (Bld) 4.90 10*6/uL (NEG) 4.2 - 6.1 04-21-2020 PENDING L OCATION [#/Vol] 10*6/uL 22:50-0400 [facility] (26771) RBC LM.HPF NONE (no code) 04-21-2020 PENDING LOCATI ON (Urine sed) 22:43-0400 [facility] (54345) [#/Area] RBC Ql (U) Negative (no code) 04-21-2020 PENDING LOCATI ON 22:43-0400 [facility] (80057) Sodium 141 mmol/L (NEG) 135 - 145 mmol/L 04-21-2020 PEND ING LOCATION [Moles/Vol] 22:50-0400 [facility] (63503) Specific gravity >= (no code) 04-21-2020 PENDING L OCATION (U) [Rel 22:43-0400 [facility] (98577) density] Tetracycline DANIAL > (R) 04-21-2020 PENDING L OCATION [Susc] 22:43-0400 [facility] (15928) Trimethoprim+Sul > (R) 04-21-2020 PENDING L OCATION famethoxazole 22:43-0400 [facility] (58549) DANIAL [Susc] Troponin ng/mL (NEG) 0 - 0.4 ng/mL 04-21-2020 PENDING LOCATION I.cardiac 22:50-0400 [facility] (65219) [Mass/Vol] Urea nitrogen 8 mg/dL (NEG) 7 - 20 mg/dL 04-21-2020 PENDI NG LOCATION [Mass/Vol] 22:50-0400 [facility] (48143) Urea 14 mg/mg (no code) 6 - 22 mg/mg 04-21-2020 PENDING L OCATION nitrogen/Creatin 22:50-0400 [facility] (15073) ine [Mass ratio] Urinalysis YES (no code) 04-21-2020 PENDING LOCATI ON complete W 22:43-0400 [facility] (50885) Reflex Culture panel - Urine Urobilinogen (U) 2.0 mg/dL (no code) 04-21-2020 PENDING L OCATION [Mass/Vol] 22:43-0400 [facility] (41131) WBC (Bld) 6.5 10*3/uL (NEG) 3.5 - 10.5 04-21-2020 PENDING L OCATION [#/Vol] 10*3/uL 22:50-0400 [facility] (31191) WBC LM.HPF no information (no code) 04-21-2020 PENDING LOC ATION (Urine sed) 22:43-0400 [facility] (53752) [#/Area] Vital Signs No Information Interventions No Information [...] no information [place] (n o phone) [facility] ([facility] - Abuse Brief Contact (no phone) 12-18-2018 - 12-18-2018 05-22-2019 [facility] WALK IN Unspecified acute JENNY ROSMERY R (no [facility] WALK IN CARE noninfective otitis phone) CARE (no p pk) externa, right ear 04-21-2020 Emergency department no information WOOD ORTIZ MD (no [facility] - patient visit phone) [facility] 04-22-2020 (no phone) 10-07-2019 Emergency department no information [...] ization name - management of 07-13-2017 inpatient 07-12-2017 Evaluation and no information JOSÉ MIGUEL CLEARY MD (n o [facility] - management of phone) [facility] [place] 07-13-2017 inpatient (no phone) 01-02-2019 Follow-up encounter Other stimulant RUPABRANDEN BENAVIDEZ (no [facility] (no phone) - dependence, phone) [place] ( no 01-02-2019 uncomplicated phone) - 01-02-2019 NEGATED Patient encounter no information no name no or ganization name 04-21-2020 Patient encounter no information WOOD ORTIZ MD (no [facility] procedure phone) [facility] (no phone) 05-22-2019 Patient encounter no information no name no or ganization name procedure 01-02-2019 Patient encounter no information no name no or ganization name procedure 12-18-2018 Patient encounter no information no name no or ganization name procedure 07-12-2017 Patient encounter no information no name no or ganization name - procedure 07-13-2017 01-07-2017 Patient encounter no information no name no or ganization name procedure 01-07-2017 Patient encounter no information YOANDY Perea VC [facility] procedure (no phone) [facility] (no phone) 06-25-2015 Patient encounter no information no name no or ganization name procedure 06-25-2015 Patient encounter no information YOANDY Perea VC [facility] procedure (no phone) [facility] (no phone) Medical Equipment No Information Payers No Information History general Narrative - Reported Note Type Note Facility History general Narrative - Reported Type Medical seizures History Medical hyperlipidemia History Medical sleep apnea - on night o2 History Medical hypertension History Medical depression/anxiety History Medical agoraphobia History Surgical 8 abdominal surgeries History Surgical appendix History Surgical x2 History Surgical laparatomoy History Surgical gastric sleeve 2016 History Hospitaliz abdominal pain, hernia-[facility] 07/12/17 ation [facility] ([address]74) Additional Source Comments This clinical document has been generated using [employer] software that has been certified by the Office of the National Coordinator for Health Information Technology (ONC 15.99.04.3023.Diam.31.00.0.528813) and the National Committee for Relief Operator (NCQA, as an eMeasure certified technology). FOR [...] BASED ON T HE PRIMARY CLINICAL RECORDS. [facility]. provides no warranty or guara ntee of the accuracy or completeness of information in this document.The followi information is based on time limited clinical [...] BELOW FOR UNRECOGNIZED SECTION REASON FOR VISIT [id number]
--- OUTSIDE RECORDS SUMMARY | 2020-05-04 10:43 | XMS REPORT | Encounter Summary ---
Author Author [facility] Organization [facility] Address Unknown Phone Unavailable Care Team Providers Care Vice President Global Digital Marketing Name Role Phone Minesh Solis MD PCP Minesh Solis MD 100 Reason for Visit * Reason Comments Rash heat rash Medication Management * (Routine) Referred By Contact Referred To Contact Status Reason Specialty Diagnoses / Procedures Incomplete Encounter Details Care Team Description Date Type Department Minesh Solis MD [address] [facility] Ortho/Med Pavilion Lvl [address] [place] [id number] Royce Waterman, LUMBER BUYER-FONDANT MACHINE OPERATOR [address] [place], [place] [id number] Chronic respiratory failure with hypoxia (HCC) (Primary [...] 03/06/2020 Office Visit Internal Medicine Telehealth [address] [place] [address] Social History Date Tobacco Use [...] or concerns. Her direct phone number is [phone]. You can leave a voicemail if needed. You can also reach us by sending a secure message through [employer]. Helpful Information: We will contact you by [employer] or phone with any test results when they are a vailable. If you are expecting results and have not heard from us within 2 weeks of you r testing, please send a [employer] message or call the clinic. Please use the [employer] Refill request or contact your pharmacy directly to re quest medication refills. - Please allow at least 72 hours for refill requests. For appointments: Our Scheduling phone number is [phone]. It was nice to see you today! [...] to treat them and their agreement to [facility] policy and NPP via this telehealth visit during the Coronavirus Public [facility] Yomaira Merino is 54 y.o. 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 Dispense any necessary equipment and replace/repair when needed ; DX: G47.34 and J96.11; ELHAM:99 months [employer] [facility] Whey protein Shakes; DX:E66.01 Z68.44 [employer] [facility] Please dispense sg pads; DX:R32 nystatin (MYCOSTATIN) [...] 1 tablet by mouth daily. 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 Height: 5'4" Weight 380 lbs [...] or concerns. Her direct phone number is [phone]. You can leave a voicemail if needed. You can also reach us by sending a secure message through [employer]. Helpful Information: We will contact you by [employer] or phone with any test results when they are a vailable. If you are expecting results and have not heard from us within 2 weeks of you r testing, please send a [employer] message or call the clinic. Please use the [employer] Refill request or contact your pharmacy directly to re quest medication refills. - Please allow at least 72 hours for refill requests. For appointments: Our Scheduling phone number is [phone]. It was nice to see you today! [...]
--- OUTSIDE RECORDS SUMMARY | 2020-05-04 10:43 | XMS REPORT | Encounter Summary ---
Author Author [facility] Organization [facility] Address Unknown Phone Unavailable Care Team Providers Care Convention Services Director Name Role Phone Minesh Solis MD PCP Minesh Solis MD 100 Reason for Visit * Reason Comments Form Request Encounter Details Care Team Description Date Type Department Minesh Solis MD 1999 [facility] Ortho/Med Pavilion Lvl [address] [place], [place] [phone] Form Request 02/20/2020 Telephone Internal Medicine [address] [place] [address] Social History Date Tobacco Use [...] to inquire if we received request from [employer]. Sh e also asked if we got anything for her 02 supplies. I returned call letting her know that [facility] and once this is signed we [...]
--- OUTSIDE RECORDS SUMMARY | 2020-05-04 10:43 | XMS REPORT | Encounter Summary ---
Author Author [facility] Organization [facility] Address Unknown Phone Unavailable Care Team Providers Care Special Education Bus Driver Name Role Phone Minesh Solis MD PCP Minesh Solis MD 100 Reason for Visit * Reason Comments Follow-up Phone Call sdwa Encounter Details Care Team Description Date Type Department Minesh Solis MD [address] [facility] Ortho/Med Pavilion Lvl [address] [place] [address] [facility] 03/25/2020 Telephone Internal Medicine [address] [place] [address] Social History Date Tobacco Use [...] None Follow-up: Pt reports moving back to [place], [place] and is living with her son. [...]
--- OUTSIDE RECORDS SUMMARY | 2020-05-04 10:43 | XMS REPORT | Clinical Summary ---
Author Author [facility] Organization [facility] Address Unknown Phone Unavailable Care Team Providers Care Cash Specialist Name Role Phone Minesh Solis MD PCP Minesh Solis MD 100 Source Comments Some departments are not documenting in the electronic medical record. If you d o not see the information that you expected, contact Release of Information in [facility] Information Management department at [phone] for further assistan ce in locating additional records.[facility] Allergies Comments Active Allergy Reactions Severity Noted Date Kidney Irritation Acetaminophen SEE COMMENTS Low 04/17/2017 Lorazepam RASH Medium 04/17/2017 Iodinated Contrast Media HIVES Medium 04/17 Causes nausea, vomiting, bloody stools. [place] SEE COMMENTS Low 01/25/2018 Due to GI [...] polyneuropathy, with long-term current use of insulin ([facility]) Active blood sugar diagnostic Test as 200 strip 1 (ACCU-CHEK FENG PLUS directed Dx 9 TEST STRP) test E11.9 stripIndications: Type 2 checking Qam diabetes mellitus with diabetic polyneuropathy, with long-term current use of insulin ([facility]) Active hydroCHLOROthiazide TAKE 1 TABLET 90 tablet [...] Phone Call (sdoh) 03/25/2020 Telephone General Internal De Minesh Lorenzo MD Miller, Andrea M, APRN-SHELBY [...] Nocturnal hypoxia 03/06/2020 Office Visit General [facility] De [facility] Minesh Solis MD Form Request 02/20/2020 Telephone General Internal De Minesh Lorenzo MD Durable Medical Equipment 02/19/2020 Telephone General Internal De ernestina from Last 3 Months Immunizations Name [...] Comments Vital Sign 138/63 09/27/2019 9:10 AM EXTERMINATOR Blood Pressure 73 09/27/2019 9:10 AM EXTERMINATOR Pulse 36.6 C (97.8 F) 09/27/2019 9:10 AM EXTERMINATOR Temperature 16 08/02/2019 4:17 PM CDT Respiratory Rate 98% 09/27/2019 9:10 AM EXTERMINATOR Oxygen Saturation - - Inhaled Oxygen Concentration 174.9 kg (385 lb 9.6 oz) 09/27/2019 9:10 AM EXTERMINATOR Weight 162.6 cm (5' 4") 09/27/2019 9:10 AM EXTERMINATOR Height 66.19 09/27/2019 9:10 AM EXTERMINATOR Body Mass Index Plan of Treatment Health [...] Dates Group AETNA MEDICAID AETNA xxxxxxxxxxx 2019-P [facility] Advance Directives Patient Environmental Conflict Manager Explanation Type Date Recorded Advance 04/17/2017 8:02 [...]
--- OUTSIDE RECORDS SUMMARY | 2020-05-04 10:44 | XMS REPORT | Encounter Summary ---
Author Author [facility] Organization [facility] Address Unknown Phone Unavailable Care Team Providers Care Supervisor Cigar Making Machine Name Role Phone Minesh Solis MD PCP Minesh Solis MD 100 Reason for Visit * Reason Comments Medication Refill Encounter Details Care Team Description Date Type Department Minesh Solis MD 1999 [facility] Ortho/Med Pavilion Lvl [address] [place], [place] [phone] Essential hypertension 12/20/2019 Refill Internal Medicine [address] [place] [phone] Social History Date Tobacco Use Types Packs/Day [...] Sana Donnelly RN - 12/20/2019 9:21 AM ORACLE AGILE PLM CONSULTANT Pharmacy requesting: Zestril LR: 09/27/19 AVA: 09/27/19 Per general medicine protocol, medication was signed and sent to pharmacy. Sana Donnelly RN LE AGILE PLM CONSULTANT documented in this encounter Plan of Treatment Not on filedocumented as of this encounter Visit Diagnoses Diagnosis Essential hypertension Unspecified essential hypertension documented in this encounter
--- OUTSIDE RECORDS SUMMARY | 2020-05-04 10:44 | XMS REPORT | Encounter Summary ---
Author Author [facility] Organization [facility] Address Unknown Phone Unavailable Care Team Providers Care Academic Vice President Name Role Phone Minesh Solis MD PCP Minesh Solis MD 100 Reason for Visit * Reason Comments Medication Refill Encounter Details Care Team Description Date Type Department Minesh Solis MD 1999 [facility] Ortho/Med Pavilion Lvl [address] [place], [place] [phone] Essential hypertension 11/20/2019 Refill Internal Medicine [address] [place] [phone] Social History Date Tobacco Use Types Packs/Day [...] Sana Donnelly RN - 11/20/2019 8:29 AM QUILL COLLECTOR Pharmacy requesting: HCTZ LR: 09/27/19 AVA: 09/27/19 Per general medicine protocol, medication was signed and sent to pharmacy. Sana Donnelly RN L COLLECTOR documented in this encounter Plan of Treatment Not on filedocumented as of this encounter Visit Diagnoses Diagnosis Essential hypertension Unspecified essential hypertension documented in this encounter
--- OUTSIDE RECORDS SUMMARY | 2020-05-04 10:44 | XMS REPORT | Encounter Summary ---
Author Author [facility] Organization [facility] Address Unknown Phone Unavailable Care Team Providers Care Physical Fitness Teacher Name Role Phone Minesh Solis MD PCP Minesh Solis MD 100 Reason for Visit * Reason Comments Durable Medical Equipment Encounter Details Care Team Description Date Type Department Minesh Solis MD 1999 [facility] Ortho/Med Pavilion [address]vl [address] [place] [address] Durable Medical Equipment 02/19/2020 Telephone Internal Medicine [address] [place] [address] Social History Date Tobacco Use [...]
--- OUTSIDE RECORDS SUMMARY | 2020-05-04 10:45 | XMS REPORT ---
Author Author Yomaira ZAMAN Organization [facility] Address [address] [place] [address] Care Team Providers Care Pension Adviser Name Role Phone IDRIS ZAMAN Unavailable PROBLEMS Type Condition ICD9-CM Code [id number] Code Onset Dates Condition S tatus SNOMED Code Problem Body mass index (BMI) of 60.0-69.9 in adult Z68.44 Active 967597440 Problem Chronic edema R60.9 Active 080257 008 Problem Mild persistent reactive airway disease without complicati on J45.30 Active 548627623 Problem Amphetamine and other psychostimulant dependence, unsp ecified F15.20 Active 64351592 Problem Seizure-like activity R56.9 Active 056141594 Problem Abdominal wall hernia K43.9 Active 539347226 Problem Anxiety F41.9 Active 88558948 Problem Morbid (severe) obesity due to excess calories E66 .01 Active 356994952 ALLERGIES No Information ENCOUNTERS Encounter Location Date Diagnosis [facility] [address] [facility] [id number] [address] [place] [phone] May, Acute otitis externa of righ t ear, unspecified type H60.501 and Non-recurrent acute suppurative otitis media of right ear without spontaneous rupture of tympanic membrane H66.001 [facility] [address] [place] [id number] [place] [phone] Dec, Amphetamine and other psychostimulant de pendence, 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 [facility] [address] [facility] [id number] [address] [place] [phone] Dec, [facility] [address] [place] [id number] [address] [place] [phone] Dec, [facility] [address] [place] [place] [id number] [address] [place] [phone] Jan, [facility] [address] [facility] [id number] [address] [place] [phone] Jan, Anxiety F41.9 and Morbid (se lillie) obesity due to excess calories E66.01 [facility] [address] [facility] [id number] [address] [place] [phone] Jan, Anxiety F41.9 and Morbid (se lillie) obesity due to excess calories E66.01 [facility] [address] [facility] [id number] [address] [place] [phone] Jan, [facility] [address] [facility] [id number] [address] [place] [phone] Dec, [facility] [address] [facility] [id number] [address] [place] [phone] Sep, [facility] [address] [facility] [id number] [address] [place] [phone] Aug, [facility] [address] [facility] [id number] [address] [place] [phone] Aug, [facility] [address] [facility] [id number] [address] [place] [phone] Jul, Abdominal wall hernia K43.9 ; Seizure-like activity R56.9 ; Chronic edema R60.9 ; Mild persistent reactive airway disease without complication J45.30 ; Anxiety F41.9 ; Body mass index (BMI) of 60.0-69.9 in adult Z68.44 and Morbid (severe) obesity due to excess calories E66.01 [facility] [address] [place] [id number] [place] [id number] Jun, [facility] [address] [facility] [id number] [address] [place] [phone] Feb, [facility] [address] [facility] [id number] [address] [place] [phone] Feb, [facility] [address] [facility] [id number] [address] [place] [phone] Jun, [facility] [address] [facility] [id number] [address] [place] [phone] Nov, [facility] [address] [facility] [id number] [address] [place] [phone] Aug, [facility] [address] [facility] [id number] [address] [place] [phone] Nov, [facility] [address] [facility] [id number] [address] [place] [phone] Nov, [facility] [address] [facility] [id number] [address] [place] [phone] Nov, [facility] [address] [facility] [id number] [address] [place] [phone] Nov, [facility] [address] [facility] [id number] [address] [place] [phone] Nov, [facility] [address] [facility] [id number] [address] [place] [phone] Oct, IMMUNIZATIONS No Known Immunizations SOCIAL HISTORY Never Assessed REASON FOR VISIT PLAN OF CARE VITAL SIGNS MEDICATIONS Unknown [...] gastric sleeve 2016 Hospitalization History abdominal pain, hernia-[facility] 07/12/17
--- OUTSIDE RECORDS SUMMARY | 2020-05-04 10:45 | XMS REPORT | Continuity of Care Document ---
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 Name Role Phone Judaism PlayerLync Unavailable Unavailable Problems Problem Status Onset Date Classification Date Reported Comments Source BODY MASS INDEX (BMI) 70 OR GREATER, STARR Active 06/10/2016 [facility] PERITONEAL ADHESIONS (POSTPROCEDURAL) (P Active 06/10/2016 [facility] [place] INCISIONAL HERNIA WITHOUT OBSTRUCTION OR Active 06/10/2016 [facility] HYPOXEMIA Active 06/10/2016 [facility] CHRONIC OBSTRUCTIVE PULMONARY DISEASE, U Active 06/10/2016 [facility] LEFT ANTERIOR FASCICULAR BLOCK Active 06/10/2016 [facility] PERSONAL HISTORY OF NICOTINE DEPENDENCE Active 06/10/2016 [facility] Discharge Diagnosis: Morbid obesity 06/09/2016 Discharge Diagnosis 06/11/2016 [facility] Medications Medication Details Route Status Patient Instructions Ordering Provider Order Date Source hydrOXYzine pamoate 25 mg oral capsule 1 CAP, PO, TID (3 times a day), PRN Agitation/Anxiety, 0 Refill(s) Active 11/02/2016 [facility] furosemide 40 mg oral tablet 1 TAB, PO, BID (2 times a day), 0 Refill(s) Active 11/02/2016 [facility] Acetaminophen 33.3 MG/ML Oral Solution [Tylenol] = 15 mL, PO, Q6H (Every 6 hours), PRN as needed for pain, # 900 mL, 0 Refill(s), called to pharmacy (Rx), Indication: Moderate Pain Active 06/10/2016 [facility] 0.4 ML Enoxaparin sodium 100 MG/ML Prefi lled Syringe [Lovenox] = 0.4 mL, Subcut, Daily, X 7 day, # 2.8 mL, 0 Refill(s), called to pharmacy (Rx), Indication: Clot Prevention Active 06/08/2016 [facility] omeprazole 20 mg oral delayed release capsule 1 CAP, PO, BID (2 times a day), # 60 CAP, 0 Refill(s), called to pharmacy (Rx), Indication: Reflux Active 06/08/2016 [facility] traZODone 100 mg oral tablet 1 TAB, PO, QHS (At bedtime), PRN Sleep/Insomnia, 0 Refill(s), Indication: Sleep/Insomnia Active 05/31/2016 [facility] tiZANidine 4 mg oral capsule 1 CAP, PO, TID (3 times a day), PRN as needed for muscle spasm, 0 Refill(s), Indication: Muscle Spasms Active 05/31/2016 [facility] Silver Sulfadiazine 10 MG/ML Topical Cream 1 PAIGE, TOP, BID (2 times a day), PRN Skin Irritation, 0 Refill(s), Indication: Other - See Special Instructions Active 05/31/2016 [facility] sertraline 50 mg oral tablet 1 TAB, PO, Daily, 0 Refill(s), Indication: Depression Active 05/31/2016 [facility] 200 ACTUAT Albuterol 0.09 MG/ACTUAT Mete red Dose Inhaler [ProAir HFA] 2 Puff, Inhalation, Q6H (Every 6 hours), PRN Wheezing, 0 Refill(s), Indication: Asthma Active 05/31/2016 [facility] Nystatin 100 UNT/MG Topical Powder [Nystop] 1 PAIGE, TOP, BID (2 times a day), PRN Skin Irritation, 0 Refill(s), Indication: Fungal Infection Active 05/31/2016 [facility] fluticasone 50 mcg/inh nasal spray 2 [place], Nasal, Daily, PRN Allergy Symptoms, 0 Refill(s), Indication: Allergy Symptoms Active 05/31/2016 [facility] ARIPiprazole 5 mg, PO, QHS (At bedtime), 0 Refill(s), Indication: Mood Disorder Active 05/31/2016 [facility] lisinopril 10 mg oral tablet 1 TAB, PO, Daily, 0 Refill(s), Indication: High Blood Pressure Active 05/25/2016 [facility] pregabalin 100 MG Oral Capsule [Lyrica] 1 CAP, PO, BID (2 times a day), 0 Refill(s) Active 05/25/2016 [facility] Advair Diskus 250 mcg-50 mcg inhalation powder 1 Puff, Inhalation, BID (2 times a day), 0 Refill(s), Indication: Asthma Active 05/25/2016 [facility] Allergies, Adverse Reactions, Alerts Substance Category Reaction Severity Reaction type Status Date Reported Comments Source Ativan Assertion Hives Drug allergy Active [facility] Dilantin Assertion Unknown Drug allergy Active [facility] Latex Assertion Swelling, Shortness of breath Drug allergy Active [facility] er PHENobarbital Assertion Unknown Drug allergy Active [facility] Immunizations No Data Provided for This Section Results Order Name Results Value Reference Range Date Interpretation Comments Source CHEMISTRY Glucose Level (POC) 96 mg/ dL 70 - 100 06/10/2016 Result Comment: Meter ID: [id number]<b r/>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
O perator: [id number] [facility] Glucose WB POC SMM Glucose Level (PO C) 107 mg/dL 70 - 100 06/10/2016 H Meter ID: [id number]
O perator: [id number] [facility] Glucose WB POC SMM Glucose Level (PO C) 88 mg/dL 70 - 100 06/09/2016 N Meter ID: [id number]
O perator: [id number] AXEL VILLALTA
[facility] Glucose WB POC SMM Glucose Level (PO C) 82 mg/dL 70 - 100 06/09/2016 N Meter ID: [id number]
O perator: [phone] AXEL VILLALTA
[facility] Glucose WB POC SMM Glucose Level (PO C) 83 mg/dL 70 - 100 06/09/2016 N Meter ID: [id number]
O perator: [phone] ELIANA CRAIG
[facility] Glucose WB POC SMM Glucose Level (PO C) 94 mg/dL 70 - 100 06/09/2016 N Meter ID: [id number]
O perator: [phone] JENNIFER PELLETIER
[facility] CHEMISTRY GFR (CKD-EPI) >110.0 mL/min/1.73 m2 06/09/2016 Result Comment: GFR calculated based on CKD-EPI Creatinine Equation (2009).
Age(years) Average GFR
20-29 116 mL/min/1.73 m^2
30-39 107 mL/min/1.73 m^2
40-49 99 mL/min/1.73 m^2
50-59 93 mL/min/1.73 m^2
60-69 85 mL/min/1.73 m^2
70+ 75 mL/min/1.73 m^2
&lt ;br/>Acceptable GFR =>60 mL/min/1.73 m^2
Chronic Kidney Disease <60 mL/min/1.73 m^2
Kidney Failure <15 mL/min/1.73 m^2 [facility] CHEMISTRY Est CrCL (CG) 136.0 mL/min 06/09/2016 Result Comment: Estimated Creatinine Tommie arance calculated based on the Cockcroft-Gault formula. [facility] CHEMISTRY BUN 3 mg/dL 8 - 20 06/09/2016 [facility] er CHEMISTRY Calcium 8.1 mg/dL 8.6 - 10.2 06/09/2016 [facility] er CHEMISTRY Creatinine 0.4 mg/dL 0.7 - 1.2 06/09/2016 [facility] er CHEMISTRY Glucose 106 mg/dL 70 - 100 06/09/2016 [facility] er CHEMISTRY AGAP 17 mmol/L 3 - 19 06/09/2016 [facility] er CHEMISTRY CO2 24 mmol/L 22 - 06/09/2016 [facility] er CHEMISTRY Chloride 98 mmol/L 98 - 107 06/09/2016 [facility] er CHEMISTRY Potassium 3.7 mmol/L 3.5 - 5.1 06/09/2016 [facility] er CHEMISTRY Sodium 138 mmol/L 136 - 145 06/09/2016 [facility] er Glucose WB POC SMM Glucose Level (PO C) 115 mg/dL 70 - 100 06/09/2016 H Meter ID: [id number]
O perator: [id number] ELIANA CRAIG
[facility] Renal Funct Index GFR (CKD-EPI) >110.0 mL/min/1.73 m2 06/09/2016 NA GFR calculated based on CKD -EPI Creatinine Equation (2009).
Age(years) Average GFR
20-29 116 mL/min/1.73 m^2
30-39 107 mL/min/1.73 m^2
40-49 99 mL/min/1.73 m^2
50-59 93 mL/min/1.73 m^2
60-69 85 mL/min/1.73 m^2
70+ 75 mL/min/1.73 m^2

Acceptable GFR =>60 mL/min/1.73 m^2
Chronic Kidney Disease <60 mL/min/1.73 m^2
Kidney Failure <15 mL/min/1.73 m^2
[facility] BMP Sodium 138 mmol/L 136 - 145 06/09/2016 N [facility] BMP Potassium 3.7 mmol/L 3.5 - 5.1 06/09/2016 N [facility] BMP Chloride 98 mmol/L 98 - 107 06/09/2016 N [facility] BMP CO2 24 mmol/L 22 - 06/09/2016 N [facility] BMP AGAP 17 mmol/L 3 - 19 06/09/2016 N [facility] BMP Glucose 106 mg/dL 70 - 100 06/09/2016 H [facility] BMP BUN 3 mg/dL 8 - 20 06/09/2016 L [facility] BMP Creatinine 0.4 mg/dL 0.7 - 1.2 06/09/2016 L [facility] BMP Calcium 8.1 mg/dL 8.6 - 10.2 06/09/2016 L [facility] Glucose WB POC SMM Glucose Level (PO C) 84 mg/dL 70 - 100 06/09/2016 N Meter ID: [id number]
O perator: [id number] AXEL AMBAR
[facility] Glucose WB POC SMM Glucose Level (PO C) 88 mg/dL 70 - 100 06/08/2016 N Meter ID: [id number]
O perator: [phone] [facility] Glucose WB POC SMM Glucose Level (PO C) 106 mg/dL 70 - 100 06/08/2016 H Meter ID: [id number]
O perator: [id number] JENNIFER PELLETIER
[facility] Glucose WB POC SMM Glucose Level (PO C) 115 mg/dL 70 - 100 06/08/2016 H Meter ID: [id number]
O perator: [phone] ELIANA CRAIG
[facility] CHEMISTRY Albumin Level 3.2 g/ dL 3.5 - 5.2 06/08/2016 [facility] CHEMISTRY Total Protein 5.8 g/ dL 6.6 - 8.7 06/08/2016 [facility] CHEMISTRY ALT(SGPT) 24 [iU]/d 0 - 33. 06/08/2016 [facility] er CHEMISTRY AST 22 Units/L 0 - 40 06/08/2016 [facility] er CHEMISTRY Alk Phos 62 [iU]/d 40 - 130. 06/08/2016 [facility] er CHEMISTRY Bili Total 0.7 mg/dL 0.0 - 1.2 06/08/2016 [facility] er HEMATOLOGY RDW 13.9 % <=14.5 % 06/08/2016 [facility] er HEMATOLOGY MPV 10.2 fL 6.5 - 10.4 06/08/2016 [facility] er HEMATOLOGY Platelet 166 x 10'3/microL 140 - [id number] 06/08/2016 [facility] er HEMATOLOGY MCHC 33 g/dL 32 - 36 06/08/2016 [facility] er HEMATOLOGY MCV 98 fL 81 - 99 06/08/2016 [facility] er HEMATOLOGY MCH 32 pg 27 - 34 06/08/2016 [facility] er HEMATOLOGY Hct 44 % 35 - 47 06/08/2016 [facility] er HEMATOLOGY RBC 4.43 x10'6/microL 3.90 - 5.68320 06/08/2016 [facility] er HEMATOLOGY Hgb 14.3 g/dL 12.0 - 16.0 06/08/2016 [facility] er HEMATOLOGY WBC 8.1 x 10'3/microL 4.0 - 11.0103 06/08/2016 [facility] er Glucose WB POC SMM Glucose Level (PO C) 128 mg/dL 70 - 100 06/08/2016 H Meter ID: [id number]
O perator: [phone] ELIANA CRAIG
[facility] [place] CBC WBC 8.1 x10'3/microL 4.0 - 11.0 06/08/2016 N [facility] [place] CBC RBC 4.43 x10'6/microL 3.90 - 5.60 06/08/2016 N [facility] [place] CBC Hgb 14.3 g/dL 12.0 - 16.0 06/08/2016 N [facility] [place] CBC Hct 44 % 35 - 47 06/08/2016 N [facility] [place] CBC MCV 98 fL 81 - 99 06/08/2016 N [facility] [place] CBC MCH 32 pg 27 - 34 06/08/2016 N [facility] CBC MCHC 33 g/dL 32 - 36 06/08/2016 N [facility] CBC RDW 13.9 % - <=14.5 06/08/2016 N [facility] CBC Platelet 166 x10'3/microL 140 - 400 06/08/2016 N [facility] CBC MPV 10.2 fL 6.5 - 10.4 06/08/2016 N [facility] Renal Funct Index GFR (CKD-EPI) >110.0 mL/min/1.73 m2 06/08/2016 NA GFR calculated based on CKD -EPI Creatinine Equation (2009).
Age(years) Average GFR
20-29 116 mL/min/1.73 m^2
30-39 107 mL/min/1.73 m^2
40-49 99 mL/min/1.73 m^2
50-59 93 mL/min/1.73 m^2
60-69 85 mL/min/1.73 m^2
70+ 75 mL/min/1.73 m^2

Acceptable GFR =>60 mL/min/1.73 m^2
Chronic Kidney Disease <60 mL/min/1.73 m^2
Kidney Failure <15 mL/min/1.73 m^2
[facility] CMP Sodium 138 mmol/L 136 - 145 06/08/2016 N [facility] CMP Potassium 4.1 mmol/L 3.5 - 5.1 06/08/2016 N [facility] CMP Chloride 98 mmol/L 98 - 107 06/08/2016 N [facility] CMP CO2 27 mmol/L 22 - 29 06/08/2016 N [facility] CMP AGAP 14 mmol/L 3 - 19 06/08/2016 N [facility] CMP Glucose 114 mg/dL 70 - 100 06/08/2016 H [facility] CMP BUN 5 mg/dL 8 - 20 06/08/2016 L [facility] CMP Creatinine 0.4 mg/dL 0.7 - 1.2 06/08/2016 L [facility] [place] CMP Calcium 8.2 mg/dL 8.6 - 10.2 06/08/2016 L [facility] [place] CMP Total Protein 5.8 g/dL 6.6 - 8.7 06/08/2016 L [facility] [place] CMP Albumin Level 3.2 g/dL 3.5 - 5.2 06/08/2016 L [facility] [place] CMP Bili Total 0.7 mg/dL 0.0 - 1.2 06/08/2016 N Samples containing indocyanine green mus t not be measured.
[facility] [place] CMP Alk Phos 62 Inter. Units/L 40 - 130 06/08/2016 N [facility] [place] CMP AST 22 Units/L 0 - 40 06/08/2016 N [facility] [place] CMP ALT(SGPT) 24 Inter. Un its/L 0 - 33 06/08/2016 N [facility] [place] Glucose WB POC SMM Glucose Level (PO C) 95 mg/dL 70 - 100 06/07/2016 N Meter ID: [id number]
O perator: [phone] BEA MANCILLA
[facility] [place] Glucose WB POC SMM Glucose Level (PO C) 122 mg/dL 70 - 100 06/07/2016 H Meter ID: [id number]
O perator: [phone] [facility] [place] CBC WBC 11.7 x10'3/microL 4.0 - 11.0 06/07/2016 H [facility] [place] CBC RBC 3.77 x10'6/microL 3.90 - 5.60 06/07/2016 L [facility] [place] CBC Hgb 12.4 g/dL 12.0 - 16.0 06/07/2016 N [facility] [place] CBC Hct 37 % 35 - 47 06/07/2016 N [facility] [place] CBC MCV 99 fL 81 - 99 06/07/2016 N [facility] [place] CBC MCH 33 pg 27 - 34 06/07/2016 N [facility] CBC MCHC 33 g/dL 32 - 36 06/07/2016 N [facility] CBC RDW 13.7 % - <=14.5 06/07/2016 N [facility] CBC Platelet 135 x10'3/microL 140 - 400 06/07/2016 L [facility] CBC MPV 10.3 fL 6.5 - 10.4 06/07/2016 N [facility] Glucose WB POC SMM Glucose Level (PO C) 129 mg/dL 70 - 100 06/07/2016 H Meter ID: [id number]
O perator: [phone] VIRAL REYNOLDS
[facility] Folate Folate >19.9 ng/mL >=5.0 05/24/2016 N [facility] Iron Serum Iron 79 mcg/dL 37 - 145 05/24/2016 N [facility] Prealbumin Prealbumin 24 mg/dL 20 - 40 05/24/2016 N [facility] Vit B12 Vitamin B12 Lvl 684 pg/m L 191 - 663 05/24/2016 H [facility] Vit D 25OH 25OH Vit D Level 14.5 ng/mL 05/24/2016 NA Increased risk of deficiency < 12 ng/ml
Increased risk of inadequacy < 16 ng/ml
Adequacy >20 ng/ml
Increased risk of excess >50 ng/ml
[facility] T4 Free T4 Free 1.4 ng/dL 0.9 - 1.7 05/24/2016 N [facility] CHEMISTRY Hgb A1c 6.8 % 0.0 - 5.6 05/24/2016 [facility] CHEMISTRY Estimated Average Glucose 148 mg/dL 05/24/2016 [facility] er CHEMISTRY Prealbumin 24 mg/dL 20 - 40 05/24/2016 [facility] er CHEMISTRY Chol/HDL Ratio 6 05/24/2016 [facility] er CHEMISTRY LDL Direct 161 mg/dL <=100 mg/dL 05/24/2016 [facility] [employer] [facility] er CHEMISTRY HDL 41 mg/dL >=60 mg/dL 05/24/2016 [facility] er CHEMISTRY Cholesterol 227 mg /dL <=200 mg/dL 05/24/2016 [facility] er CHEMISTRY Triglycerides 210 mg /dL <=150 mg/dL 05/24/2016 [facility] er CHEMISTRY Magnesium 1.7 mg/dL 1.6 - 2.6 05/24/2016 [facility] er CHEMISTRY Phos 3.10 mg/dL 2.50 - 4.50 05/24/2016 [facility] er CHEMISTRY Iron 79 ug/dL 37 - 145 05/24/2016 [facility] er CHEMISTRY Uric Acid 6.5 mg/dL 2.4 - 5.7 05/24/2016 [facility] er ENDOCRINE/TUMOR MARKER Vitamin B12 L vl 684 pg/mL 191 - 663 05/24/2016 [facility] ENDOCRINE/TUMOR MARKER 25OH Vit D Le saba 14.5 ng/mL 05/24/2016 [facility] er ENDOCRINE/TUMOR MARKER Folate >19.9 ng/mL >=5.0 ng/mL 05/24/2016 [facility] ENDOCRINE/TUMOR MARKER T4 Free 1.4 ng/dL 0.9 - 1.7 05/24/2016 [facility] er HgbA1c Hgb A1c 6.8 % 0.0 - 5.6 05/24/2016 H Prediabetic: 5.7-6.4%

Very High Risk: 6.0-6.4%

Diabetic: >/= 6.5%
[facility] HgbA1c Estimated Average Glucose 148 mg/dL 05/24/2016 NA [facility] Renal Funct Index GFR (CKD-EPI) >110.0 mL/min/1.73 m2 05/24/2016 NA GFR calculated based on CKD -EPI Creatinine Equation (2009).
Age(years) Average GFR
20-29 116 mL/min/1.73 m^2
30-39 107 mL/min/1.73 m^2
40-49 99 mL/min/1.73 m^2
50-59 93 mL/min/1.73 m^2
60-69 85 mL/min/1.73 m^2
70+ 75 mL/min/1.73 m^2

Acceptable GFR =>60 mL/min/1.73 m^2
Chronic Kidney Disease <60 mL/min/1.73 m^2
Kidney Failure <15 mL/min/1.73 m^2
[facility] [place] CMP Sodium 140 mmol/L 136 - 145 05/24/2016 N [facility] [place] CMP Potassium 4.3 mmol/L 3.5 - 5.1 05/24/2016 N [facility] CMP Chloride 97 mmol/L 98 - 107 05/24/2016 L [facility] CMP CO2 25 mmol/L 22 - 29 05/24/2016 N [facility] CMP AGAP 18 mmol/L 3 - 19 05/24/2016 N [facility] [place] CMP Glucose 143 mg/dL 70 - 100 05/24/2016 H [facility] [place] CMP BUN 13 mg/dL 8 - 20 05/24/2016 N [facility] CMP Creatinine 0.5 mg/dL 0.7 - 1.2 05/24/2016 L [facility] CMP Calcium 10.2 mg/dL 8.6 - 10.2 05/24/2016 N [facility] CMP Total Protein 7.3 g/dL 6.6 - 8.7 05/24/2016 N [facility] [place] CMP Albumin Level 4.0 g/dL 3.5 - 5.2 05/24/2016 N [facility] [place] CMP Bili Total 0.5 mg/dL 0.0 - 1.2 05/24/2016 N [facility] [place] CMP Alk Phos 82 Inter. Units/L 40 - 130 05/24/2016 N [facility] [place] CMP AST 18 Units/L 0 - 40 05/24/2016 N [facility] [place] CMP ALT(SGPT) 18 Inter. Un its/L 0 - 33 05/24/2016 [facility] [place] Lipid wDir LDL Cholesterol 2 27 mg/dL - <=200 05/24/2016 H [facility] [place] Lipid wDir LDL HDL 41 mg/dL >=60 05/24/2016 L <40 Major risk factor for CHD<br/ >> or = 60 Negative risk factor
[facility] [place] Lipid wDir LDL LDL Direct 1 61 mg/dL - <=100 05/24/2016 [facility] [place] Lipid wDir LDL Chol/HDL Ratio 6 05/24/2016 NA [facility] Lipid wDir LDL Triglycerides 2 10 mg/dL - <=150 05/24/2016 H [facility] [place] Magnesium Magnesium 1.7 mg/dL 1.6 - 2.6 05/24/2016 N Critical High for OB Patients >=7.0 mg/d l.
[facility] Phosphorus Phos 3.10 mg/dL 2.50 - 4.50 05/24/2016 N [facility] Uric Acid Uric Acid 6.5 mg/dL 2.4 - 5.7 05/24/2016 H [facility] [place] CBC WBC 9.8 x10'3/microL 4.0 - 11.0 05/24/2016 N [facility] [place] CBC RBC 5.42 x10'6/microL 3.90 - 5.60 05/24/2016 N [facility] [place] CBC Hgb 17.7 g/dL 12.0 - 16.0 05/24/2016 H [facility] [place] CBC Hct 52 % 35 - 47 05/24/2016 H [facility] [place] CBC MCV 96 fL 81 - 99 05/24/2016 N [facility] [place] CBC MCH 33 pg 27 - 34 05/24/2016 N [facility] [place] CBC MCHC 34 g/dL 32 - 36 05/24/2016 N [facility] [place] CBC RDW 14.3 % - <=14.5 05/24/2016 N [facility] [place] CBC Platelet 186 x10'3/microL 140 - 400 05/24/2016 N [facility] [place] CBC MPV 10.0 fL 6.5 - 10.4 05/24/2016 N [facility] HP Urease H pylori Negative Negative 11/29/2015 N Recent ingestion of antibiotics, bismuth , proton pump inhibitors, or sucralfate can inhibit H. pylori causing false negative results.
[facility] No data available for this section No data available for this section [address] [place] [address] Pathology Reports No Data Provided for This [...] the harmonic scalpel as well. A 34 Wol[place] bougie dilator was advanced under videoscopic guidance to the pylorus. The bougie dilator was trapped immediately adjacent to the lesser curvature by using the combination of graspers and the 60 mm [place] linear stapler. A green load of the [...] EGD scope was then withdrawn. A 19 Wolof Ankur drain was placed through the left [...] C.T. CCalixto E: 06/09/2016 08:35 CCalixto/ Samy# [id number] Doc#: [id number] cc: [facility]2016 [facility] [place] [facility] Report Consultation Report [facility] Medicine Consult Patient: CLEOPATRA SHERIFF Age: 50 [...] nasal(fluticasone 50 mcg/inh nasal spray)(fluticasone nasal) 2 [place] In Nose DAILY PRN Allergy Symptoms fluticasone-salmeterol(Advair [...] MD, MD HOLLI SANDOVAL MD, MD 06/07/2016 [facility] Procedure Report Procedure Report Procedure Note [facility] [...] DEWAYNE STEVENSON On, 06/07/2016 12:45 PM 06/07/2016 [facility] [place] Discharge Summaries Results Value Date Source Discharge [...] in the clinic in 1 week. 06/11/2016 [facility] Sofiya arias [place] History and Physicals Results Value Date Source [...] tried multiple medical weight loss regimens without nursing home success. She has also tried weight loss [...] C.T. C.T. E: 06/04/2016 16:35 C.T./ Conf# [id number] Doc#: [id number] cc: 06/04/2016 [facility] Vital Signs Vital Sign Value Date Comments Source NIBP MAP Calc 86 06/10/2016 [facility] er Heart Rate Location Auto BP ( 11:00 AM) 06/10/2016 [facility] Inet NIBP Systolic 141 mm[Hg] 06/10/2016 [facility] NIBP Diastolic 58 mm[Hg] 06/10/2016 [facility] Respiratory Rate 17 br/min 06/10/2016 [facility] BP Location Arm, left (06/10/16 11:00 AM) 06/10/2016 [facility] BP Cuff Size Large (06/10/16 11 :00 AM) 06/10/2016 [facility] Heart Rate 82 bpm 06/10/2016 [facility] er Temp Method Oral (06/10/16 11:0 0 AM) 06/10/2016 [facility] Temperature 98.4 [degF] 06/10/2016 [facility] Vital Signs Status/Type Routin e Assessment (06/10/16 11:00 AM) 06/10/2016 [facility] NIBP Alarms set and on Yes ( 6:00 AM) 06/08/2016 [facility] Heart Rhythm Interpretation Si nus/atrial rhythm (06/07/16 2:30 PM) 06/07/2016 [facility] Encounters Location Location Details Encounter Type Encounter Number Reason For Visit Attending Provider ADM Date DC Date Status Source 006 006 I [id number] MORBID OBESITY DEWAYNE BASS MD 06/07/2016 06/10/2016 Active [facility] 006 006 O [id number] HEATHER BASS MD 05/24/2016 05/24/2016 Active [facility] Non-Patient [id number] DEWAYNE BASS MD 11/28/2015 11/29/[address] [place] [address] 006 006 N [id number] HEATHER BASS MD 11/28/2015 11/28/2015 Active [facility] 006 006 # [id number] DX INT DEWAYNE BASS MD 08/04/2015 Active [facility] Procedures Procedure Code Date Perfomer Comments Source Laparoscopic Gastric Sleeve<sup>1</sup> 06/07/2016 auto- populated from documented surgical case [facility] Plan of Care No Data Provided for This Section Social History No Data Provided for This Section Assessment and Plan No Data Provided for This Section Family History No Data Provided for This Section Advance Directives No Data Provided for This Section Functional Status No Data Provided for This Section
--- OUTSIDE RECORDS SUMMARY | 2020-05-04 10:45 | XMS REPORT | Continuity of Care Document ---
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 07/13/2017 JOSÉ MIGUEL CLEARY [...] MIGUEL CLEARY MD N Ot 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.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 07/13/2017 JOSÉ MIGUEL CLEARY [...] 60.0-69.9, adult 10/07/2019 Deniz Lin Final 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 9 TYPE 2 DIABETES MELLITUS WITHOUT COMPLIC 04/22/2020 DIANA BARBOSA, WOOD Kwan Ot F17.210 NICOTINE DEPENDENCE, CIGARETTES, UNCOMPL 04/22/2020 WOOD ORTIZ MD Ot F17.290 NICOTINE DEPENDENCE, OTHER TOBACCO PRODU 04/22/2020 WOOD ORTIZ MD Ot F32. 9 MAJOR DEPRESSIVE DISORDER, SINGLE EPISOD 04/22/2020 WOOD ORTIZ MD Ot F41. 9 ANXIETY DISORDER, UNSPECIFIED 04/22/2020 WOOD ORTIZ MD Ot G40.909 EPILEPSY, UNSP, NOT INTRACTABLE, WITHOUT 04/22/2020 WOOD ORTIZ MD Ot J44. 9 CHRONIC OBSTRUCTIVE PULMONARY DISEASE, U 04/22/2020 WOOD ORTIZ MD Ot K29. 70 GASTRITIS, UNSPECIFIED, WITHOUT BLEEDING 04/22/2020 WOOD ORTIZ MD Ot K29. 80 DUODENITIS WITHOUT BLEEDING 04/22/2020 WOOD ORTIZ MD Ot N39. 0 URINARY TRACT INFECTION, SITE NOT SPECIF 04/22/2020 WOOD ORTIZ MD Ot R10. 13 EPIGASTRIC PAIN 04/22/2020 WOOD ORTIZ MD Ot Z80. 0 FAMILY HISTORY OF MALIGNANT NEOPLASM OF 04/22/2020 WOOD ORTIZ MD Ot Z82. 49 FAMILY HX OF ISCHEM HEART DIS AND OTH DI 04/22/2020 WOOD ORTIZ MD, Ot Z88. 1 ALLERGY STATUS TO OTHER ANTIBIOTIC AGENT 04/22/2020 WOOD ORTIZ MD Ot Z88. 8 ALLERGY STATUS TO OTH DRUG/MEDS/BIOL SUB 04/22/2020 WOOD ORTIZ MD Ot Z91.040 LATEX ALLERGY STATUS 04/22/2020 SARAH BARBOSA, YOANDY L Ot 305.1 TOBACCO USE DISORDER 04/22/2020 SARAH BARBOSA, YOANDY L Ot 786.05 SHORTNESS OF BREATH 04/22/2020 YOANDY SMITH MD L Ot 786.07 WHEEZING 04/22/2020 YOANDY SMITH MD L Ot R0 5 COUGH 04/24/2020 WOOD ORTIZ MD Ot E11. 9 TYPE 2 DIABETES MELLITUS WITHOUT COMPLIC 04/24/2020 WOOD ORTIZ MD Ot F17.210 NICOTINE DEPENDENCE, CIGARETTES, UNCOMPL 04/24/2020 WOOD ORTIZ MD Ot F17.290 NICOTINE DEPENDENCE, OTHER TOBACCO PRODU 04/24/2020 WOOD ORTIZ MD Ot F32. 9 MAJOR DEPRESSIVE DISORDER, SINGLE EPISOD 04/24/2020 WOOD ORTIZ MD Ot F41. 9 ANXIETY DISORDER, UNSPECIFIED 04/24/2020 WOOD ORTIZ MD Ot G40.909 EPILEPSY, UNSP, NOT INTRACTABLE, WITHOUT 04/24/2020 WOOD ORTIZ MD Ot J44. 9 CHRONIC OBSTRUCTIVE PULMONARY DISEASE, U 04/24/2020 WOOD ORTIZ MD Ot K29. 70 GASTRITIS, UNSPECIFIED, WITHOUT BLEEDING 04/24/2020 WOOD ORTIZ MD Ot K29. 80 DUODENITIS WITHOUT BLEEDING 04/24/2020 WOOD ORTIZ MD, Ot N39. 0 URINARY TRACT INFECTION, SITE NOT SPECIF 04/24/2020 WOOD ORTIZ MD, Ot R10. 13 EPIGASTRIC PAIN 04/24/2020 WOOD ORTIZ MD, Ot Z80. 0 FAMILY HISTORY OF MALIGNANT NEOPLASM OF 04/24/2020 WOOD ORTIZ MD, Ot Z82. 49 FAMILY HX OF ISCHEM HEART DIS AND OTH DI 04/24/2020 WOOD ORTIZ MD, Ot Z88. 1 ALLERGY STATUS TO OTHER ANTIBIOTIC AGENT 04/24/2020 WOOD ORTIZ MD, Ot Z88. 8 ALLERGY STATUS TO OTH DRUG/MEDS/BIOL SUB 04/24/2020 WOOD ORTIZ MD, Ot Z91.040 LATEX ALLERGY STATUS Procedures Code Description [place] [address] Ther apeutic, prophylactic, or diagnostic KENNETH [place] 09/23/2019 20880 Ther apeutic, prophylactic, or diagnostic YOLETTE KENNETH 09/23/2019 92305 [facility] visit for the evalu KENNETH [place] 09/23/2019 93899 Ther apeutic, prophylactic, or diagnostic YOLETTE KENNETH 10/07/2019 93011 Ther apeutic, prophylactic, or diagnostic YOLETTE [place] 10/07/2019 85496 [facility] department visit for the evalu YOLETTE KENNETH 10/07/2019 Results Test Result Range Complete blood [...] culture - 07/12/17 10:20 Bacterial urine culture [id number] NRG COLONY COUNT >100,000/ML NRG FTX;REPORTABLE PLUS, [...] Colorless Blood, UA Negative mg/dL Negative Specific [place], UA 1.022 1.003-1.0 30 Leukocyte Esterase Trace Melissa/uL Negative Ketones, UA 80 mg/dL Negative Nitrites, UA Positive Negative Bilirubin, UA Negative mg/dL Negative Glucose, UA Negative mg/dL Negative Urobilinogen, UA 6 mg/dL Normal Protein, UA 10 mg/dL Negative Clarity, UA Slightly Cloudy Clear pH, UA 6.0 NRG URINE CULTURE - 09/23/19 16:21 Final >100,000 Cfu/Ml Escherichia coli NRG Organism CD:[id number] NRG DANIAL - 09/23/19 16:35 Organism CD:[id number] NRG Amp >=32 NRG Amp/Sul 4 NRG [...] culture YES NRG Bacterial urine culture - 04/22/20 02:43 Bacterial urine culture [id number] NRG COLONY COUNT >100,000/ML NRG SUSCEPTIBILITY SUSCEPTIBILITY REPORTED 04-24-20, 10 14 NRG MRSA SCREEN MULTI-DRUG RESISTANT ORGANISM/MDRO NRG RAPID ID CONTACT PERCAUTIONS NRG Dirithromycin susceptibility test by dis k diffusion - 04/22/20 02:43 Gentamicin susceptibility test by minimum inhibitory c oncentration > NRG Trimethoprim/sulfamethoxazole susceptibi lity test by minimum inhibitoryconcentration > NRG Levofloxacin susceptibility test by minimum inhibitory concentration > NRG Tetracycline susceptibility test by minimum inhibitory concentration > NRG Ampicillin susceptibility test by minimum inhibitory c oncentration > NRG Cefazolin susceptibility test by minimum inhibitory co ncentration 4 NRG Ceftriaxone susceptibility test by minimum inhibitory concentration <= NRG Ciprofloxacin susceptibility test by minimum inhibitor y concentration > NRG Meropenem susceptibility test by minimum inhibitory co ncentration <= NRG Nitrofurantoin susceptibility test by mi nimum inhibitory concentration <= NRG Amoxicillin and clavulanate potassium susc DANIAL = NRG Complete blood count (CBC) with automate [...] plasma chloride measurement (moles/volume) 109 mmol/L 98-107 Carbon dioxide 22 mmol/L 21-32 Serum or plasma anion gap determination (moles/volume) 10 mmol/L 5-14 Serum or plasma urea nitrogen measurement (mass/volume ) 8 mg/dL 7-18 Serum or plasma creatinine measurement (mass/volume) 0.59 mg/dL 0.60-1.30 Serum or plasma urea nitrogen/creatinine mass ratio 14 NRG Serum or plasma creatinine measurement w ith calculation of estimated glomerular filtration rate > NRG Serum or plasma glucose measurement (mass/volume) 164 mg/dL 70-105 Serum or plasma calcium measurement (mass/volume) 8.5 mg/dL 8.5-10.1 Serum or plasma total bilirubin measurement (mass/volu me) 0.4 mg/dL 0.1-1.0 Serum or plasma alkaline phosphatase lexy surement (enzymatic activity/volume) 78 U/L 40-136 Serum or plasma aspartate aminotransfera se measurement (enzymatic activity/volume) 8 U/L 5-34 Serum or plasma alanine aminotransferase measurement (enzymatic activity/volume) 7 U/L 0-55 Serum or plasma protein measurement (mass/volume) 6.3 g/dL 6.4-8.2 Serum or plasma albumin measurement (mass/volume) 3.4 g/dL 3.2-4.5 CALCIUM CORRECTED 9.0 mg/dL 8.5-10.1 Serum or plasma troponin i.cardiac measu rement (mass/volume) - 04/22/20 02:50 Serum or plasma troponin i.cardiac measurement (mass/v olume) < ng/mL <0.028 Lipase - 04/22/20 02:50 Lipase 72 U/L 8-78 Serum or plasma C reactive protein measu rement (mass/volume) - 04/22/20 02:50 Serum or plasma C reactive protein measurement (mass/v olume) 0.90 mg/dL 0.00-0.50 Encounters ACCT No. Visit Date/Time Discharge Status Pt. Type Provider Facility Loc./Unit Complaint [id number] 12/18/2016 14:37:00 12/18/2016 23:59: 00 DIS Outpatient YOANDY SMITH [facility] 10/07/2019 20:20:07 ACT Document Registration [id number] 04/22/2020 02:28:00 020 04:01:00 DIS Emergency WOOD ORTIZ MD [facility] ER ABD PAIN [id number] 07/12/2017 22:56:00 017 13:00:00 DIS Inpatient JOSÉ MIGUEL CLEARY MD [facility] 4TH ABDOMINAL PAIN RUB MULT IPLE HERNIAS [id number] 01/07/2017 20:02:00 017 23:59:59 CLS Outpatient YOANDY SMITH MD [facility] LAB COUGH, ASPIRATION [id number] 06/25/2015 13:50:00 015 23:59:59 CLS Outpatient YOANDY SMITH MD [facility] RT TOBACCOISM,SOA [id number] 10/16/2014 14:15:00 014 23:59:59 CLS Preadmit YOANDY SMITH MD [facility] RT TOBACCOISM,COPD [id number] 12/22/2013 21:35:00 014 00:33:00 DIS Emergency SCOUT LOVING [facility] ER FALL;LEFT KNEE PAIN [id number] 03/02/2011 05:57:00 Document Registration [id number] 02/23/2011 08:49:00 Document Registration [id number] 01/31/2011 16:47:00 Document Registration [id number] 01/14/2011 21:40:00 Document Registration [id number] 01/11/2011 19:29:00 Document Registration [id number] 06/27/2010 13:22:00 Document Registration [id number] 05/22/2019 11:05:00 05/22/2019 23:59:5 9 CLS Outpatient [facility]O [facility] [id number] 10/07/2019 11:36:00 9 15:32:00 DIS Emergency Deniz Lin [facility] ER Abdominal Pain [id number] 09/23/2019 12:07:00 9 19:31:00 DIS Emergency TEODORO SEGURA [facility] ER Difficulty Breathing [id number] 10/07/2019 11:36:00 Document Registration [id number] 09/23/2019 12:07:00 Document Registration [id number] 12/06/2011 10:27:00 12/06/2011 23:59: 59 CLS Outpatient
--- NOTE | 2020-05-04 10:49 | ED Abdominal Pain ---
General Stated Complaint: ABD PAIN Source of Information: Patient Exam Limitations: No Limitations History of Present Illness Date Seen by Provider: May 04, 2020 Time Seen by Provider: 10:47 Initial Comments To ER with upper abdominal pain for "a while". Got worse after eating a breakfast burrito this morning. Timing/Duration: 1-2 Days Severity/Quality: Moderate Location: Epigastric Radiation: No Radiation Activities at Onset: None Associated Symptoms: Nausea/Vomiting Allergies and Home Medications Allergies Coded Allergies: latex (Verified Allergy, Intermediate, RASH, ITCHING, 03/02/11) vancomycin (Verified Allergy, Intermediate, HIVES, 03/02/11) iodine (Verified Allergy, Mild, "ILL", 03/02/11) lorazepam (Verified Allergy, Unknown, 07/12/17) phenobarbital (Verified Allergy, Unknown, 03/09/06) phenytoin (Verified Allergy, Unknown, 07/12/17) Home Medications Albuterol Sulfate 1 Puff Puff, 2 PUFF INH Q4H PRN for SHORTNESS OF BREATH, (Reported) LAST FILLED 12-06-16 Albuterol Sulfate 2.5 Mg/3 Ml Vial.neb, 2.5 MG NEB Q4H PRN for SHORTNESS OF BREATH, (Reported) Aripiprazole 5 Mg Tablet, 5 MG PO HS, (Reported) LAST FILLED #30 02-22-17 Cephalexin 500 Mg Tablet, 500 MG PO BID Prescribed by: WOOD ORTIZ on 04/22/20 034 Furosemide 40 Mg Tablet, 40 MG PO BID, (Reported) LAST FILLED #60 17 Hydroxyzine Pamoate 25 Mg Capsule, 25-50 MG PO TID PRN for ANXIETY, (Reported) LAST FILLED #180 02-22- Levetiracetam 500 Mg Tablet, 500 MG PO BID, (Reported) LAST FILLED #60 04-28-17 Lisinopril 20 Mg Tablet, 20 MG PO DAILY, (Reported) LAST FILLED #30 02-02-17 Meclizine HCl 25 Mg Tablet, 25 MG PO TID PRN for DIZZINESS, (Reported) Omeprazole 20 Mg Capsule.dr, 20 MG PO BID, (Reported) LAST FILLED #60 517 Omeprazole 40 Mg Capsule.dr, 40 MG PO DAILY Prescribed by: WOOD ORTIZ on 04/22/20 034 Ondansetron 8 Mg Tab.rapdis, 8 MG PO Q6H PRN for NAUSEA/VOMITING-1ST LINE, (Reported) Pravastatin Sodium 20 Mg Tablet, 20 MG PO DAILY, (Reported) LAST FILLED #30 12-06-16 Sertraline HCl 50 Mg Tablet, 75 MG PO DAILY, (Reported) LAST FILLED #45 02-22-17 TAKES 1 & 1/2 (50MG) TABLET Trazodone HCl 150 Mg Tablet, 150 MG PO HS, (Reported) LAST FILLED #30 02-22-17 Patient Home Medication List Home Medication List Reviewed: Yes Review of Systems Review of Systems Constitutional: see HPI EENTM: No Symptoms Reported Respiratory: No Symptoms Reported Cardiovascular: No Symptoms Reported Gastrointestinal: See HPI, Abdominal Pain Genitourinary: No Symptoms Reported Musculoskeletal: no symptoms reported Skin: no symptoms reported Psychiatric/Neurological: No Symptoms Reported Endocrine: No Symptoms Reported Hematologic/Lymphatic: No Symptoms Reported Past Owrftqy-Bplhmc-Pyzxbf Hx Patient Social History Type Used: Cigarettes, Electronic/Vapor Recent Hopitalizations: Yes (HERNIA X 5, C-SECTIONS) Past Medical History Surgeries: Yes (LAPAROTOMY, C-SECTIONS) Respiratory: No Sleep Apnea, COPD Cardiac: Yes Chronic Edema/Swelling Neurological: Yes Seizure Disorder Reproductive Disorders: No Genitourinary: No Gastrointestinal: Yes (VENTRAL HERNIA) Musculoskeletal: No Endocrine: Yes Diabetes, Non-Insulin dep HEENT: No Cancer: No Psychosocial: Yes Anxiety, Depression Integumentary: No Blood Disorders: No Family Medical History Alzheimer's disease 19 MOTHER Arthritis 19 MOTHER Asthma 19 FATHER 19 MOTHER Colon cancer 19 MOTHER Completed stroke 19 FATHER 19 MOTHER Deafness or hearing loss Dementia 19 MOTHER Diabetes mellitus 19 FATHER Glaucoma 19 FATHER 19 MOTHER Hypertension 19 FATHER 19 MOTHER Myocardial infarction 19 FATHER 19 MOTHER Respiratory disorder 19 MOTHER Cancer Physical Exam Vital Signs Vital Signs - First Documented 05/04/20 10:58 Temp 36.8 Pulse 84 Resp 26 B/P (MAP) 110/54 (72) Pulse Ox 95 Capillary Refill : Height/Weight/BMI Height: 5'4.00" Weight: 396lbs. 0.0oz. 179.155979qu; 67.00 BMI Method:Estimated General Appearance: WD/WN, no apparent distress, obese HEENT: PERRL/EOMI, normal ENT inspection Respiratory: no respiratory distress, no accessory muscle use Gastrointestinal: normal bowel sounds, soft, tenderness, other (abdomen has several obvious large hernias) Extremities: normal range of motion, non-tender Neurologic/Psychiatric: alert, normal mood/affect, oriented x 3 Skin: normal color, warm/dry Progress/Results/Core Measures Results/Orders Lab Results Laboratory Tests Test 05/04/20 11:01 05/04/20 11:46 Range/Units White Blood Count 6.1 4.3-11.0 10^3/uL Red Blood Count 4.68 4.35-5.85 10^6/uL Hemoglobin 14.9 11.5-16.0 G/DL Hematocrit 44 35-52 % Mean Corpuscular Volume 95 80-99 FL Mean Corpuscular Hemoglobin 32 25-34 PG Mean Corpuscular Hemoglobin Concent 34 32-36 G/DL Red Cell Distribution Width 13.4 10.0-14.5 % Platelet Count 158 130-400 10^3/uL Mean Platelet Volume 9.5 7.4-10.4 FL Neutrophils (%) (Auto) 63 42-75 % Lymphocytes (%) (Auto) 24 12-44 % Monocytes (%) (Auto) 10 0-12 % Eosinophils (%) (Auto) 3 0-10 % Basophils (%) (Auto) 0 0-10 % Neutrophils # (Auto) 3.8 1.8-7.8 X 10^3 Lymphocytes # (Auto) 1.5 1.0-4.0 X 10^3 Monocytes # (Auto) 0.6 0.0-1.0 X 10^3 Eosinophils # (Auto) 0.2 0.0-0.3 10^3/uL Basophils # (Auto) 0.0 0.0-0.1 10^3/uL Sodium Level 140 135-145 MMOL/L Potassium Level 4.2 3.6-5.0 MMOL/L Chloride Level 108 H 98-107 MMOL/L Carbon Dioxide Level 25 21-32 MMOL/L Anion Gap 7 5-14 MMOL/L Blood Urea Nitrogen 6 L 7-18 MG/DL Creatinine 0.60 0.60-1.30 MG/DL Estimat Glomerular Filtration Rate > 60 BUN/Creatinine Ratio 10 Glucose Level 107 H 70-105 MG/DL Calcium Level 8.3 L 8.5-10.1 MG/DL Corrected Calcium 8.9 8.5-10.1 MG/DL Total Bilirubin 0.4 0.1-1.0 MG/DL Aspartate Amino Transf (AST/SGOT) 11 5-34 U/L Alanine Aminotransferase (ALT/SGPT) 13 0-55 U/L Alkaline Phosphatase 76 40-136 U/L Total Protein 6.1 L 6.4-8.2 GM/DL Albumin 3.3 3.2-4.5 GM/DL Lipase 14 8-78 U/L Urine Color YELLOW Urine Clarity CLEAR Urine pH 7.0 5-9 Urine Specific [place] 1.020 1.016-1.022 Urine Protein NEGATIVE NEGATIVE Urine Glucose (UA) NEGATIVE NEGATIVE Urine Ketones NEGATIVE NEGATIVE Urine Nitrite NEGATIVE NEGATIVE Urine Bilirubin NEGATIVE NEGATIVE Urine Urobilinogen >=8.0 < = 1.0 MG/DL Urine Leukocyte Esterase NEGATIVE NEGATIVE Urine RBC (Auto) NEGATIVE NEGATIVE Urine RBC NONE /HPF Urine WBC NONE /HPF Urine Squamous Epithelial Cells 0-2 /HPF Urine Crystals NONE /LPF Urine Bacteria NEGATIVE /HPF Urine Casts NONE /LPF Urine Mucus SMALL H /LPF Urine Culture Indicated NO Urine Opiates Screen NEGATIVE NEGATIVE Urine Oxycodone Screen NEGATIVE NEGATIVE Urine Methadone Screen NEGATIVE NEGATIVE Urine Propoxyphene Screen NEGATIVE NEGATIVE Urine Barbiturates Screen NEGATIVE NEGATIVE Ur Tricyclic Antidepressants Screen NEGATIVE NEGATIVE Urine Phencyclidine Screen NEGATIVE NEGATIVE Urine Amphetamines Screen POSITIVE H NEGATIVE Urine Methamphetamines Screen NEGATIVE NEGATIVE Urine Benzodiazepines Screen NEGATIVE NEGATIVE Urine Cocaine Screen NEGATIVE NEGATIVE Urine Cannabinoids Screen NEGATIVE NEGATIVE My Orders Orders - MIKE KIRBY SENIOR SOFTWARE DEVELOPMENT ENGINEER Cbc With Automated Diff (05/04/20 10:43) Comprehensive Metabolic Panel (05/04/20 10:43) Lipase (05/04/20 10:43) Ua Culture If Indicated (05/04/20 10:43) Ct Abdomen/Pelvis Wo (05/04/20 10:43) Ed Iv/Invasive Line Start (05/04/20 10:43) Drug Screen Stat (Urine) (05/04/20 10:45) Ketorolac Injection (Toradol Injection) (05/04/20 12:00) Vital Signs/I&O 05/04/20 10:58 Temp 36.8 Pulse 84 Resp 26 B/P (MAP) 110/54 (72) Pulse Ox 95 Diagnostic Imaging Diagonstic Imaging: CT Comments NAME: CLE[facility]ATRA [facility]ER[facility] REC#: [id number] PT STATUS: REG ER : 1965 PHYSICIAN: MIKE KIRBY APRN ADMIT DATE: 05/04/20/ER Draft Date of Exam:05/04/20 CT ABDOMEN/PELVIS WO PROCEDURE: CT abdomen and pelvis without contrast. TECHNIQUE: Multiple contiguous axial images were obtained through the abdomen and pelvis without the use of intravenous contrast. Auto Exposure Controls were utilized during the CT exam to meet ALARA standards for radiation dose reduction. INDICATION: Epigastric pain, cough, fever. COMPARISON: 04/22/2020 FINDINGS: The lung bases are clear. The heart is normal in size. There is no pericardial effusion. The liver demonstrates no focal lesions. The spleen appears normal. The pancreas and kidneys demonstrate no abnormalities on this noncontrast exam. The head of the pancreas is somewhat drawn to the right due to the abdominal hernia. The adrenal glands appear normal. There is no hydronephrosis or renal calculi. There is a very large hernia of the anterior right abdominal wall containing a great deal of fat and bowel including majority of the colon. No distended loops of bowel are seen to indicate obstruction. Postsurgical changes are seen in the stomach. The stomach is somewhat drawn to the right toward the hernia as well, similar to the prior study. No free fluid or free air is seen. No mesenteric edema is seen in the abdomen. There is a right uterine mass measuring 6.3 cm, which may represent a fibroid but is suboptimally evaluated on this noncontrast exam. No acute osseous abnormality is seen. IMPRESSION: 1. Redemonstrated large anterior abdominal hernia containing much of the small bowel and colon, but with no bowel distention to suggest obstruction. Overall this appears similar to the prior study. 2. Redemonstrated 6 cm right uterine mass, may represent a fibroid. Dictated on workstation # [id number] Dict: 05/04/20 1152 Trans: 05/04/20 1201 [id number] Interpreted by: YASIR GARCÍA MD Electronically signed by: Departure Impression Primary Impression: Abdominal wall pain Additional Impression: Ventral hernia Disposition: 01 HOME, SELF-CARE Condition: Stable Departure-Patient Inst. Decision time for Depature: 12:20 Referrals: [facility] (PCP/Family) Primary Care Physician JOSEF CARMONA BRETT D DO KIDO, TAKAAKI MD Patient Instructions: Abdominal Hernia (DC) Add. Discharge Instructions: . Follow-up with one of the surgeons listed. Return to ER for any concerns. MIKE KIRBY SENIOR SOFTWARE DEVELOPMENT ENGINEER May 04, 2020 10:49
[2020-05-04 11:09] LABS: BASOPHILS % (AUTO) 0 % (0-10); EOSINOPHILS # (AUTO) 0.2 10^3/uL (0.0-0.3); EOSINOPHILS % (AUTO) 3 % (0-10); HEMATOCRIT 44 % (35-52); HEMOGLOBIN 14.9 G/DL (11.5-16.0); LYMPHOCYTES # (AUTO) 1.5 X 10^3 (1.0-4.0); LYMPHOCYTES % (AUTO) 24 % (12-44); MEAN CORPUSCULAR HEMOGLOBIN 32 PG (25-34); MEAN CORPUSCULAR HGB CONC 34 G/DL (32-36); MEAN CORPUSCULAR VOLUME 95 FL (80-99); MEAN PLATELET VOLUME 9.5 FL (7.4-10.4); MONOCYTES # (AUTO) 0.6 X 10^3 (0.0-1.0); MONOCYTES % (AUTO) 10 % (0-12); NEUTROPHILS # (AUTO) 3.8 X 10^3 (1.8-7.8); NEUTROPHILS % (AUTO) 63 % (42-75); PLATELET COUNT 158 10^3/uL (130-400); RED CELL DISTRIBUTION WIDTH 13.4 % (10.0-14.5); WHITE BLOOD COUNT 6.1 10^3/uL (4.3-11.0)
[2020-05-04 11:21] LABS: ALBUMIN 3.3 GM/DL (3.2-4.5); CHLORIDE 108 MMOL/L (98-107); POTASSIUM 4.2 MMOL/L (3.6-5.0); SODIUM 140 MMOL/L (135-145)
[2020-05-04 11:22] LABS: CALCIUM 8.3 MG/DL (8.5-10.1)
[2020-05-04 11:23] LABS: GLUCOSE 107 MG/DL (70-105)
[2020-05-04 11:24] LABS: TOTAL PROTEIN 6.1 GM/DL (6.4-8.2)
[2020-05-04 11:25] LABS: BILIRUBIN,TOTAL 0.4 MG/DL (0.1-1.0); CARBON DIOXIDE 25 MMOL/L (21-32)
[2020-05-04 11:27] LABS: ALKALINE PHOSPHATASE 76 U/L (40-136); GFR ESTIMATED > 60
[2020-05-04 11:28] LABS: BUN/CREATININE RATIO 10
[2020-05-04 11:30] LABS: ALANINE AMINOTRANSFERASE 13 U/L (0-55); LIPASE 14 U/L (8-78)
[2020-05-04 11:53] LABS: BILIRUBIN,URINE NEGATIVE (NEGATIVE); CLARITY,URINE CLEAR; COLOR,URINE YELLOW; GLUCOSE, URINE (UA) NEGATIVE (NEGATIVE); KETONES,URINE NEGATIVE (NEGATIVE); LEUKOCYTE ESTERASE ,URINE NEGATIVE (NEGATIVE); NITRITE,URINE NEGATIVE (NEGATIVE); PROTEIN,URINE NEGATIVE (NEGATIVE)
[2020-05-04 11:59] LABS: BACTERIA,URINE NEGATIVE /HPF; SQUAMOUS EPITHELIAL CELL,UR 0-2 /HPF
[2020-05-04] MEDS ORDERED: KETOROLAC 30 MG/ML VIAL IVP ONE (12:00)
--- NOTE | 2020-05-04 12:01 | Diagnostic Imaging Report ---
PROCEDURE: CT abdomen and pelvis without contrast. TECHNIQUE: Multiple contiguous axial images were obtained through the abdomen and pelvis without the use of intravenous contrast. Auto Exposure Controls were utilized during the CT exam to meet ALARA standards for radiation dose reduction. INDICATION: Epigastric pain, cough, fever. COMPARISON: 04/22/2020 FINDINGS: The lung bases are clear. The heart is normal in size. There is no pericardial effusion. The liver demonstrates no focal lesions. The spleen appears normal. The pancreas and kidneys demonstrate no abnormalities on this noncontrast exam. The head of the pancreas is somewhat drawn to the right due to the abdominal hernia. The adrenal glands appear normal. There is no hydronephrosis or renal calculi. There is a very large hernia of the anterior right abdominal wall containing a great deal of fat and bowel including majority of the colon. No distended loops of bowel are seen to indicate obstruction. Postsurgical changes are seen in the stomach. The stomach is somewhat drawn to the right toward the hernia as well, similar to the prior study. No free fluid or free air is seen. No mesenteric edema is seen in the abdomen. There is a right uterine mass measuring 6.3 cm, which may represent a fibroid but is suboptimally evaluated on this noncontrast exam. No acute osseous abnormality is seen. IMPRESSION: 1. Redemonstrated large anterior abdominal hernia containing much of the small bowel and colon, but with no bowel distention to suggest obstruction. Overall this appears similar to the prior study. 2. Redemonstrated 6 cm right uterine mass, may represent a fibroid. Dictated by: Dictated on workstation # [id number]
[2020-05-04 12:06] LABS: AMPHETAMINE SCREEN, URINE POSITIVE (NEGATIVE); BARBITURATE SCREEN URINE NEGATIVE (NEGATIVE); BENZODIAZEPINES SCREEN URINE NEGATIVE (NEGATIVE); CANNABINOID SCREEN, URINE NEGATIVE (NEGATIVE); COCAINE SCREEN URINE NEGATIVE (NEGATIVE); METHADONE STAT NEGATIVE (NEGATIVE); METHAMPHETAMINE SCREEN URINE S NEGATIVE (NEGATIVE); OPIATE SCREEN URINE NEGATIVE (NEGATIVE); OXYCODONE STAT NEGATIVE (NEGATIVE); PROPOXYPHENE STAT NEGATIVE (NEGATIVE); TRICYCLIC ANTIDEPRESSANTS SCRE NEGATIVE (NEGATIVE)
[2020-05-04] MEDS ORDERED: HYDR-3870 PO (12:21)
[2020-05-04] MEDS ORDERED: HYDROcodone/APAP 5 MG/325 MG (LORTAB) TAB PO ONE (12:30)
[2020-05-04 13:00] VITALS: BP 115/60
== END 2020-05-04 13:00 | disposition home or self-care (01) ==
LOC: EDUNIT# 10:38 → ER 10:38
DX: K43.9 Ventral hernia without obstruction or gangrene (principal); E11.9 Type 2 diabetes mellitus without complications; J44.9 Chronic obstructive pulmonary disease, unspecified; G40.909 Epilepsy, unspecified, not intractable, without status epilepticus; F41.9 Anxiety disorder, unspecified; F32.9 Major depressive disorder, single episode, unspecified; Z91.040 Latex allergy status; Z88.1 Allergy status to other antibiotic agents; Z88.8 Allergy status to other drugs, medicaments and biological substances; Z80.0 Family history of malignant neoplasm of digestive organs; Z82.49 Family history of ischemic heart disease and other diseases of the circulatory system
CPT/HCPCS: 36415; 74176; 80053; 80306; 81000; 83690; 85025

== ENCOUNTER → 2021-02-24 | Outpatient (CLI) | payer MEDICAID ==
[~2021-02-24] MED LIST changes: +HYDR-3870 PO; -LISI-552 PO; +LISI20TA26 PO; +SERT-413 PO; -SERT50TA9 PO
[2021-02-24 15:31] LABS: BILIRUBIN,URINE NEGATIVE (NEGATIVE); CLARITY,URINE CLEAR; COLOR,URINE YELLOW; GLUCOSE, URINE (UA) NEGATIVE (NEGATIVE); KETONES,URINE NEGATIVE (NEGATIVE); LEUKOCYTE ESTERASE ,URINE 2+ (NEGATIVE); NITRITE,URINE POSITIVE (NEGATIVE); PROTEIN,URINE TRACE (NEGATIVE)
[2021-02-24 15:39] LABS: BACTERIA,URINE LARGE /HPF
[2021-02-24 17:29] LABS: AMPHETAMINE SCREEN, URINE POSITIVE (NEGATIVE); BARBITURATE SCREEN URINE NEGATIVE (NEGATIVE); BENZODIAZEPINES SCREEN URINE NEGATIVE (NEGATIVE); CANNABINOID SCREEN, URINE NEGATIVE (NEGATIVE); COCAINE SCREEN URINE NEGATIVE (NEGATIVE); METHADONE STAT NEGATIVE (NEGATIVE); METHAMPHETAMINE SCREEN URINE S POSITIVE (NEGATIVE); OPIATE SCREEN URINE NEGATIVE (NEGATIVE); OXYCODONE STAT NEGATIVE (NEGATIVE); PROPOXYPHENE STAT NEGATIVE (NEGATIVE); TRICYCLIC ANTIDEPRESSANTS SCRE NEGATIVE (NEGATIVE)
== END ==
LOC: LABNPT 15:26
DX: G93.40 Encephalopathy, unspecified (principal)
CPT/HCPCS: 80306; 81000

== ENCOUNTER 2021-03-02 20:34 | Emergency (ER) | payer MEDICAID ==
[~2021-03-02] VITALS: Ht 165 cm; Wt 172.3 kg
[2021-03-02 20:54] LABS: BASOPHILS # (AUTO) 0.1 10^3/uL (0.0-0.1); BASOPHILS % (AUTO) 1 % (0-10); EOSINOPHILS # (AUTO) 0.2 10^3/uL (0.0-0.3); EOSINOPHILS % (AUTO) 2 % (0-10); HEMATOCRIT 47 % (35-52); HEMOGLOBIN 14.9 g/dL (11.5-16.0); LYMPHOCYTES # (AUTO) 2.3 10^3/uL (1.0-4.0); LYMPHOCYTES % (AUTO) 29 % (12-44); MEAN CORPUSCULAR HEMOGLOBIN 31 pg (25-34); MEAN CORPUSCULAR HGB CONC 32 g/dL (32-36); MEAN CORPUSCULAR VOLUME 98 fL (80-99); MEAN PLATELET VOLUME 10.3 fL (9.0-12.2); MONOCYTES # (AUTO) 0.5 10^3/uL (0.0-1.0); MONOCYTES % (AUTO) 6 % (0-12); NEUTROPHILS # (AUTO) 4.8 10^3/uL (1.8-7.8); NEUTROPHILS % (AUTO) 61 % (42-75); PLATELET COUNT 274 10^3/uL (130-400); WHITE BLOOD COUNT 7.8 10^3/uL (4.3-11.0)
[2021-03-02 21:06] LABS: ALBUMIN 3.2 GM/DL (3.2-4.5); INR 0.9 (0.8-1.4)
[2021-03-02 21:07] LABS: CHLORIDE 102 MMOL/L (98-107); POTASSIUM 5.5 MMOL/L (3.6-5.0); SODIUM 136 MMOL/L (135-145)
[2021-03-02 21:08] LABS: AMYLASE 25 U/L (25-125); CALCIUM 8.7 MG/DL (8.5-10.1)
[2021-03-02 21:09] LABS: GLUCOSE 248 MG/DL (70-105); TOTAL PROTEIN 7.9 GM/DL (6.4-8.2)
[2021-03-02 21:10] LABS: CARBON DIOXIDE 20 MMOL/L (21-32)
[2021-03-02 21:11] LABS: BILIRUBIN,TOTAL 0.3 MG/DL (0.1-1.0)
[2021-03-02 21:12] LABS: ALKALINE PHOSPHATASE 109 U/L (40-136); CREATININE SERUM 0.69 MG/DL (0.60-1.30); GFR ESTIMATED > 60
[2021-03-02 21:14] LABS: BUN/CREATININE RATIO 22
[2021-03-02 21:15] LABS: ALANINE AMINOTRANSFERASE 23 U/L (0-55); MAGNESIUM 1.8 MG/DL (1.6-2.4)
[2021-03-02 21:16] LABS: LIPASE 37 U/L (8-78)
[2021-03-02 21:17] LABS: CREATINE KINASE 30 U/L (29-168)
--- NOTE | 2021-03-02 21:39 | Diagnostic Imaging Report ---
EXAMINATION: Chest 1 view HISTORY: Chest pain. Atrial fibrillation. COMPARISON: 04/22/2020. FINDINGS: The lung volumes are normal. No focal consolidation is seen. No large pleural effusion or pneumothorax is seen. The cardiomediastinal silhouette is prominent. No acute osseous abnormality is seen. IMPRESSION: 1. Cardiomegaly. No overt pulmonary edema. Dictated by: Dictated on workstation # [id number]
[2021-03-02] MEDS ORDERED: NITROGLYCERIN 0.4 MG SL TABS BTL 25'S SL PRN (21:45)
[2021-03-02] MEDS ORDERED: KETOROLAC 30 MG/ML VIAL IVP ONE (21:45)
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
[2021-03-02 21:50] LABS: CREATINE KINASE MB 0.6 NG/ML (<6.6)
[2021-03-02 22:02] LABS: TSH (THYROID ANALYZER) 1.35 UIU/ML (0.35-4.94)
[2021-03-02 22:33] LABS: BILIRUBIN,URINE NEGATIVE (NEGATIVE); CLARITY,URINE CLEAR; COLOR,URINE YELLOW; GLUCOSE, URINE (UA) NEGATIVE (NEGATIVE); KETONES,URINE NEGATIVE (NEGATIVE); LEUKOCYTE ESTERASE ,URINE 2+ (NEGATIVE); NITRITE,URINE NEGATIVE (NEGATIVE); PROTEIN,URINE NEGATIVE (NEGATIVE)
[2021-03-02 22:42] LABS: BACTERIA,URINE TRACE /HPF; SQUAMOUS EPITHELIAL CELL,UR RARE /HPF
[2021-03-02 22:46] LABS: AMPHETAMINE SCREEN, URINE POSITIVE (NEGATIVE); BARBITURATE SCREEN URINE NEGATIVE (NEGATIVE); BENZODIAZEPINES SCREEN URINE NEGATIVE (NEGATIVE); CANNABINOID SCREEN, URINE NEGATIVE (NEGATIVE); COCAINE SCREEN URINE NEGATIVE (NEGATIVE); METHADONE STAT NEGATIVE (NEGATIVE); METHAMPHETAMINE SCREEN URINE S POSITIVE (NEGATIVE); OPIATE SCREEN URINE NEGATIVE (NEGATIVE); OXYCODONE STAT NEGATIVE (NEGATIVE); PROPOXYPHENE STAT NEGATIVE (NEGATIVE); TRICYCLIC ANTIDEPRESSANTS SCRE NEGATIVE (NEGATIVE)
[2021-03-03 01:23] VITALS: BP 135/79
== END 2021-03-03 01:23 | disposition home or self-care (01) ==
LOC: EDUNIT# 20:34 → ER 20:35
DX: R07.89 Other chest pain (principal); F15.90 Other stimulant use, unspecified, uncomplicated; F19.90 Other psychoactive substance use, unspecified, uncomplicated; E66.01 Morbid (severe) obesity due to excess calories; T38.3X6A Underdosing of insulin and oral hypoglycemic [antidiabetic] drugs, initial encounter; E11.9 Type 2 diabetes mellitus without complications; I10 Essential (primary) hypertension; I48.91 Unspecified atrial fibrillation; I25.2 Old myocardial infarction; E78.00 Pure hypercholesterolemia, unspecified; F41.9 Anxiety disorder, unspecified; F32.9 Major depressive disorder, single episode, unspecified; K21.9 Gastro-esophageal reflux disease without esophagitis; G40.909 Epilepsy, unspecified, not intractable, without status epilepticus; J44.9 Chronic obstructive pulmonary disease, unspecified; F17.210 Nicotine dependence, cigarettes, uncomplicated; F17.290 Nicotine dependence, other tobacco product, uncomplicated; Z91.14 Patient's other noncompliance with medication regimen; Z79.4 Long term (current) use of insulin; Z88.1 Allergy status to other antibiotic agents; Z99.81 Dependence on supplemental oxygen; Z88.8 Allergy status to other drugs, medicaments and biological substances; Z91.040 Latex allergy status; Z79.02 Long term (current) use of antithrombotics/antiplatelets
CPT/HCPCS: 36415; 51702; 71045; 80053; 80306; 80320; 81000; 82150; 82550; 82553; 83690; 83735; 83874; 83880; 84443; 84484; 85025; 85610; 85730; 93005; 93041

== ENCOUNTER 2021-05-10 19:48 | Inpatient (IN) | payer MEDICAID ==
[~2021-05-10] VITALS: Ht 164.5 cm; Wt 191.6 kg
[~2021-05-10 19:48] MED LIST changes: -OMEP40CA27 PO; +OMEP40CA6 PO
[2021-05-10] MEDS ORDERED: diphenhydrAMINE 50 MG/ML INJ (BENADRYL) IVP ONE (20:00)
[2021-05-10] MEDS ORDERED: ONDANSETRON 4 MG/2 ML (SDV) Z0FRAN IVP ONE (20:00)
[2021-05-10] MEDS ORDERED: methylPREDNISolone 40 MG/ML (Solu-MEDROL) VIAL IV ONE (20:00)
[2021-05-10] MEDS ORDERED: fentaNYL INJ 100 MCG/2 ML AMP IVP ONE (20:00)
[2021-05-10 20:09] LABS: BASOPHILS % (AUTO) 0 % (0-10); EOSINOPHILS # (AUTO) 0.1 10^3/uL (0.0-0.3); EOSINOPHILS % (AUTO) 1 % (0-10); HEMATOCRIT 45 % (35-52); HEMOGLOBIN 14.9 g/dL (11.5-16.0); LYMPHOCYTES # (AUTO) 1.5 10^3/uL (1.0-4.0); LYMPHOCYTES % (AUTO) 13 % (12-44); MEAN CORPUSCULAR HEMOGLOBIN 31 pg (25-34); MEAN CORPUSCULAR HGB CONC 33 g/dL (32-36); MEAN CORPUSCULAR VOLUME 94 fL (80-99); MEAN PLATELET VOLUME 8.7 fL (9.0-12.2); MONOCYTES # (AUTO) 0.7 10^3/uL (0.0-1.0); MONOCYTES % (AUTO) 6 % (0-12); NEUTROPHILS # (AUTO) 8.7 10^3/uL (1.8-7.8); NEUTROPHILS % (AUTO) 79 % (42-75); PLATELET COUNT 197 10^3/uL (130-400)
--- NOTE | 2021-05-10 20:22 | ED Abdominal Pain ---
General Chief Complaint: Abdominal/GI Problems Stated Complaint: ABD PAIN Nursing Triage Note: c/o R side abdomen pain. reports that she has a hernia that 'pops out'. happened yesterday and was able to get it back in place. Sepsis Screen: No Definite Risk Source of Information: Patient Exam Limitations: No Limitations History of Present Illness Date Seen by Provider: May 10, 2021 Time Seen by Provider: 20:17 Initial Comments To ER with reports of right-sided abdominal pain that she states is caused by a hernia that pops out. Her was able to reduce it last night but the pain recurred today accompanied by nausea and vomiting. Timing/Duration: 1-2 Days Severity/Quality: Moderate Location: RLQ Radiation: No Radiation Activities at Onset: None Allergies and Home Medications Allergies Coded Allergies: latex (Verified Allergy, Intermediate, RASH, ITCHING, 03/02/11) vancomycin (Verified Allergy, Intermediate, HIVES, 03/02/11) iodine (Verified Allergy, Mild, "ILL", 03/02/11) lorazepam (Verified Allergy, Unknown, 07/12/17) phenobarbital (Verified Allergy, Unknown, 03/09/06) phenytoin (Verified Allergy, Unknown, 07/12/17) Home Medications Albuterol Sulfate 1 Puff Puff, 2 PUFF INH Q4H PRN for SHORTNESS OF BREATH, (Reported) LAST FILLED 12-06-16 Albuterol Sulfate 2.5 Mg/3 Ml Vial.neb, 2.5 MG NEB Q4H PRN for SHORTNESS OF BREATH, (Reported) Aripiprazole 5 Mg Tablet, 5 MG PO HS, (Reported) LAST FILLED #30 02-22-17 Cephalexin 500 Mg Tablet, 500 MG PO BID Prescribed by: WOOD ORTIZ on 04/22/20 0347 Furosemide 40 Mg Tablet, 40 MG PO BID, (Reported) LAST FILLED #60 17 Hydrocodone/Acetaminophen 1 Each Tablet, 1 EACH PO Q4-6HR PRN for PAIN-MODERATE Prescribed by: MIKE KIRBY on 05/04/20 1222 Hydroxyzine Pamoate 25 Mg Capsule, 25-50 MG PO TID PRN for ANXIETY, (Reported) LAST FILLED #180 02-22-17 Levetiracetam 500 Mg Tablet, 500 MG PO BID, (Reported) LAST FILLED #60 04-28-17 Lisinopril 20 Mg Tablet, 20 MG PO DAILY, (Reported) LAST FILLED #30 02-02-17 Meclizine HCl 25 Mg Tablet, 25 MG PO TID PRN for DIZZINESS, (Reported) Omeprazole 20 Mg Capsule.dr, 20 MG PO BID, (Reported) LAST FILLED #60 03-14-17 Omeprazole 40 Mg Capsule.dr, 40 MG PO DAILY Prescribed by: WOOD ORTIZ on 04/22/20 0345 Ondansetron 8 Mg Tab.rapdis, 8 MG PO Q6H PRN for NAUSEA/VOMITING-1ST LINE, (Reported) Pravastatin Sodium 20 Mg Tablet, 20 MG PO DAILY, (Reported) LAST FILLED #30 12-06-16 Sertraline HCl 50 Mg Tablet, 75 MG PO DAILY, (Reported) LAST FILLED #45 02-22-17 TAKES 1 & 1/2 (50MG) TABLET Trazodone HCl 150 Mg Tablet, 150 MG PO HS, (Reported) LAST FILLED #30 02-22-17 Patient Home Medication List Home Medication List Reviewed: Yes Review of Systems Review of Systems Constitutional: see HPI EENTM: No Symptoms Reported Respiratory: No Symptoms Reported Cardiovascular: No Symptoms Reported Gastrointestinal: See HPI, Abdominal Pain, Vomiting Genitourinary: No Symptoms Reported Musculoskeletal: no symptoms reported Skin: no symptoms reported Psychiatric/Neurological: No Symptoms Reported Endocrine: No Symptoms Reported Hematologic/Lymphatic: No Symptoms Reported Past Rboujhu-Mkkjpx-Mdonjx Hx Patient Social History Alcohol Use: Denies Use Type Used: Electronic/Vapor Recent Infectious Disease Expo: No Recent Hopitalizations: Yes (HERNIA X 5, C-SECTIONS) Past Medical History Surgeries: Yes (LAPAROTOMY, C-SECTIONS, HERNIA REPAIR, CARDIAC ABLATION;) Abdominal, Appendectomy, Cardiac Respiratory: Yes (CHRONIC RESPIRATORY FAILURE) Sleep Apnea, COPD Cardiac: Yes Atrial Fibrillation, Chronic Edema/Swelling, Heart Attack, High Cholesterol, Hypertension Neurological: Yes Seizure Disorder Reproductive Disorders: Yes Female Reproductive Disorders: Ovarian Cyst Genitourinary: No Gastrointestinal: Yes (VENTRAL HERNIA) Abdominal Hernia, Gastroesophageal Reflux Musculoskeletal: Yes (NON-MOBILE/BED BOUND DUE TO MORBID OBESITY) Endocrine: Yes (MORBID OBESITY) Diabetes, Non-Insulin dep HEENT: No Cancer: No Psychosocial: Yes Anxiety, Depression Integumentary: No Blood Disorders: No Family Medical History Alzheimer's disease 19 MOTHER Arthritis 19 MOTHER Asthma 19 FATHER 19 MOTHER Colon cancer 19 MOTHER Completed stroke 19 FATHER 19 MOTHER Deafness or hearing loss Dementia 19 MOTHER Diabetes mellitus 19 FATHER Glaucoma 19 FATHER 19 MOTHER Hypertension 19 FATHER 19 MOTHER Myocardial infarction 19 FATHER 19 MOTHER Respiratory disorder 19 MOTHER Cancer SOCIAL HISTORY: -ETOH--RARE USE -DRUGS--THC, COCAINE (SNORTS IT), METHAMPHETAMINE (SNORTS IT)--ON 03/02/21 CLAIMS "NO DRUGS FOR 13 YEARS" BUT TESTED + FOR METHAPMPHETAMINES -SMOKES 3 PPD, NOW "VAPES" PAST SURGICAL HISTORY: -EXPLORATORY LAPAROTOMY FOR OVARIAN CYST -MULTIPLE HERNIA REPAIRS--5 OR 6 SURGERIES - X 2 -CARDIAC ABLATION FOR ATRIAL FIBRILLATION PT IS NON-MOBILE AND BED-BOUND AND REQUIRES A GILBERTO LIFT FOR TRANSFERS TO WHEELCHAIR PT REQUIRES 2 --24 HOUR CAREGIVERS WITH HER AT ALL TIMES. Physical Exam Vital Signs Vital Signs - First Documented 05/10/21 19:51 Temp 36.5 Pulse 93 Resp 18 B/P (MAP) 135/70 (91) Pulse Ox 98 Capillary Refill : Less Than 3 Seconds Height/Weight/BMI Height: 5'4.00" Weight: 396lbs. 0.0oz. 179.359079sq; 65.00 BMI Method:Estimated General Appearance: WD/WN, no apparent distress, obese (morbidly obese, weight 389 which she states was obtained about 2 weeks ago at her doctors office. ) Respiratory: no respiratory distress, no accessory muscle use Gastrointestinal: normal bowel sounds, soft, tenderness (right sided. bowel sounds positive. ) Extremities: normal range of motion, non-tender Neurologic/Psychiatric: alert, normal mood/affect, oriented x 3 Skin: normal color, warm/dry Progress/Results/Core Measures Results/Orders Lab Results Laboratory Tests Test 05/10/21 19:55 Range/Units White Blood Count 11.0 4.3-11.0 10^3/uL Red Blood Count 4.83 3.80-5.11 10^6/uL Hemoglobin 14.9 11.5-16.0 g/dL Hematocrit 45 35-52 % Mean Corpuscular Volume 94 80-99 fL Mean Corpuscular Hemoglobin 31 25-34 pg Mean Corpuscular Hemoglobin Concent 33 32-36 g/dL Red Cell Distribution Width 13.5 10.0-14.5 % Platelet Count 197 130-400 10^3/uL Mean Platelet Volume 8.7 L 9.0-12.2 fL Immature Granulocyte % (Auto) 0 % Neutrophils (%) (Auto) 79 H 42-75 % Lymphocytes (%) (Auto) 13 12-44 % Monocytes (%) (Auto) 6 0-12 % Eosinophils (%) (Auto) 1 0-10 % Basophils (%) (Auto) 0 0-10 % Neutrophils # (Auto) 8.7 H 1.8-7.8 10^3/uL Lymphocytes # (Auto) 1.5 1.0-4.0 10^3/uL Monocytes # (Auto) 0.7 0.0-1.0 10^3/uL Eosinophils # (Auto) 0.1 0.0-0.3 10^3/uL Basophils # (Auto) 0.0 0.0-0.1 10^3/uL Immature Granulocyte # (Auto) 0.0 0.0-0.1 10^3/uL Sodium Level 135 135-145 MMOL/L Potassium Level 4.3 3.6-5.0 MMOL/L Chloride Level 98 98-107 MMOL/L Carbon Dioxide Level 26 21-32 MMOL/L Anion Gap 11 5-14 MMOL/L Blood Urea Nitrogen 11 7-18 MG/DL Creatinine 0.80 0.60-1.30 MG/DL Estimat Glomerular Filtration Rate > 60 BUN/Creatinine Ratio 14 Glucose Level 192 H 70-105 MG/DL Calcium Level 9.2 8.5-10.1 MG/DL Corrected Calcium 9.8 8.5-10.1 MG/DL Total Bilirubin 0.8 0.1-1.0 MG/DL Aspartate Amino Transf (AST/SGOT) 18 5-34 U/L Alanine Aminotransferase (ALT/SGPT) 19 0-55 U/L Alkaline Phosphatase 121 40-136 U/L Total Protein 7.0 6.4-8.2 GM/DL Albumin 3.3 3.2-4.5 GM/DL My Orders Orders - MIKE KIRBY APRN Ct Abdomen/Pelvis W (05/10/21 19:55) Cbc With Automated Diff (05/10/21 19:55) Comprehensive Metabolic Panel (05/10/21 19:55) Ed Iv/Invasive Line Start (05/10/21 19:55) Fentanyl Inj (Sublimaze Injection) (05/10/21 20:00) Ondansetron Injection (Zofran Injectio (05/10/21 20:00) Diphenhydramine Injection (Benadryl Inje (05/10/21 20:00) Methylprednisolone Sod Succ (Solu-Medrol (05/10/21 20:00) Iohexol Injection (Omnipaque 350 Mg/Ml 1 (05/10/21 20:30) Received Contrast (Hold Metformin- Contr (05/10/21 20:30) Sodium Chloride Flush (Catheter Flush Sy (05/10/21 20:30) Ns (Ivpb) (Sodium Chloride 0.9% Ivpb Bag (05/10/21 20:30) Diatrizoate Meglum/Sodium 37% (Gastrogra (05/10/21 20:30) Medications Given in ED Current Medications Medications Dose Ordered Sig/Sy Route Start Time Stop Time Status Last Admin Dose Admin Diatrizoate Meglum/ Diatrizoate Sod 120 ml ONCE ONCE PO 05/10/21 20:30 05/10/21 20:31 DC 05/10/21 21:04 50 ML Diphenhydramine HCl 25 mg ONCE ONCE IVP 05/10/21 20:00 05/10/21 20:01 DC 05/10/21 20:07 25 MG Fentanyl Citrate 75 mcg ONCE ONCE IVP 05/10/21 20:00 05/10/21 20:01 DC 05/10/21 20:07 75 MCG Iohexol 100 ml ONCE ONCE IV 05/10/21 20:30 05/10/21 20:31 DC 05/10/21 21:04 100 ML Methylprednisolone Sodium Succinate 80 mg ONCE ONCE IV 05/10/21 20:00 05/10/21 20:01 DC 05/10/21 20:07 80 MG Ondansetron HCl 8 mg ONCE ONCE IVP 05/10/21 20:00 05/10/21 20:01 DC 05/10/21 20:07 8 MG Sodium Chloride 10 ml NEEDED PRN IV 05/10/21 20:30 05/10/21 21:04 10 ML Sodium Chloride 100 ml ONCE ONCE IV 05/10/21 20:30 05/10/21 20:31 DC 05/10/21 21:04 80 ML Vital Signs/I&O 05/10/21 19:51 Temp 36.5 Pulse 93 Resp 18 B/P (MAP) 135/70 (91) Pulse Ox 98 Blood Pressure Mean: 91 Diagnostic Imaging Diagonstic Imaging: CT Comments NAME: [facility] REC#: [id number] PT STATUS: REG ER : 1965 PHYSICIAN: MIKE KIRBY APRN ADMIT DATE: 05/10/21/ER Draft Date of Exam:05/10/21 CT ABDOMEN/PELVIS W INDICATION: Right lower quadrant pain, nausea and vomiting. Known hernia. EXAMINATION: CT abdomen and pelvis with contrast, 05/10/2021. COMPARISON: 05/04/2020. FINDINGS: There is a large right paracentral ventral hernia incompletely imaged along its right lateral and anterior border. Loops of large and small bowel appear to extend into the herniation without evidence for strangulation or obstruction. More inferiorly a left paracentral hernia is noted which contains portions of the colon without obstruction or strangulation appreciated. This extends distally towards the midline of the pelvis. There is a 3rd hernia right paracentrally in the lower abdomen containing loops of bowel as well. Within this hernia a few loops of slightly prominent small bowel noted and an early obstructive process is not excluded. The majority of the bowel loops lie within the hernias described. A small portion of the stomach extends into the more ventral right paracentral hernia. There is fatty infiltration throughout the liver. The spleen is unremarkable. Gallbladder and adrenal glands are unremarkable. Pancreas atrophy. There is a nonobstructive stone in the left kidney. Kidneys are otherwise unremarkable. There is no ascites or free air. There is a large enhancing lesion in the right aspect of the pelvis likely an enlarged fibroid uterus which could be better characterized sonographically as other mass is difficult to exclude on this examination. There is no acute osseous abnormality. Visualized lung bases unremarkable. IMPRESSION: 1. At least three hernias, as described above, with the more inferior right paracentral hernia containing loops of somewhat distended small bowel. An early obstructive process is not excluded. 2. Masslike lesion in the right aspect of the pelvis, likely associated with a large fibroid uterus. Pelvic sonography could provide better characterization. Dictated on workstation # [id number] Dict: 05/10/212110 Trans: 05/10/212207 [facility] [id number] Interpreted by: BRADEN LYNCH MD Electronically signed by: Departure Communication (Admissions) states that IV contrast gives her hives. Will premedicate with benadryl and so gil-medrol. With Dr. Bland and Dr. Crenshaw. Will admit with a nasogastric tube overnight, small bowel follow-through in the morning. Pain control nausea control overnight. Patient is agreeable with this plan as well. Impression Primary Impression: Small bowel obstruction Disposition: ADMITTED INPATIENT Condition: Stable Admissions Decision to Admit Reason: Admit from ER (General) Decision to Admit/Date: May 10, 2021 Time/Decision to Admit Time: 22:18 Departure-Patient Inst. Referrals: [facility] (PCP/Family) Primary Care Physician MIKE KIRBY APRN May 10, 2021 20:22
[2021-05-10 20:29] LABS: ALANINE AMINOTRANSFERASE 19 U/L (0-55); ALBUMIN 3.3 GM/DL (3.2-4.5); ALKALINE PHOSPHATASE 121 U/L (40-136); BILIRUBIN,TOTAL 0.8 MG/DL (0.1-1.0); BUN/CREATININE RATIO 14; CALCIUM 9.2 MG/DL (8.5-10.1); CARBON DIOXIDE 26 MMOL/L (21-32); CHLORIDE 98 MMOL/L (98-107); GFR ESTIMATED > 60; GLUCOSE 192 MG/DL (70-105); POTASSIUM 4.3 MMOL/L (3.6-5.0); SODIUM 135 MMOL/L (135-145)
[2021-05-10] MEDS ORDERED: NS 100 ML (IVPB) BAG IV ONE (20:30)
[2021-05-10] MEDS ORDERED: DIATRIZOATE MEGLUM/SODIUM 37% 120 ML (GASTROGRAFIN) PO ONE (20:30)
[2021-05-10] MEDS ORDERED: CATHETER FLUSH 10 ML SYR IV PRN (20:30)
[2021-05-10] MEDS ORDERED: HOLD METFORMIN - RECEIVED CONTRAST 20 ML VIAL IV SCH (20:30)
[2021-05-10] MEDS ORDERED: IOHEXOL 350 MG/ML 100 ML (OMNIPAQUE 350) VIAL IV ONE (20:30)
--- NOTE | 2021-05-10 22:09 | Diagnostic Imaging Report ---
INDICATION: Right lower quadrant pain, nausea and vomiting. Known hernia. EXAMINATION: CT abdomen and pelvis with contrast, 05/10/2021. COMPARISON: 05/04/2020. FINDINGS: There is a large right paracentral ventral hernia incompletely imaged along its right lateral and anterior border. Loops of large and small bowel appear to extend into the herniation without evidence for strangulation or obstruction. More inferiorly a left paracentral hernia is noted which contains portions of the colon without obstruction or strangulation appreciated. This extends distally towards the midline of the pelvis. There is a 3rd hernia right paracentrally in the lower abdomen containing loops of bowel as well. Within this hernia a few loops of slightly prominent small bowel noted and an early obstructive process is not excluded. The majority of the bowel loops lie within the hernias described. A small portion of the stomach extends into the more ventral right paracentral hernia. There is fatty infiltration throughout the liver. The spleen is unremarkable. Gallbladder and adrenal glands are unremarkable. Pancreas atrophy. There is a nonobstructive stone in the left kidney. Kidneys are otherwise unremarkable. There is no ascites or free air. There is a large enhancing lesion in the right aspect of the pelvis likely an enlarged fibroid uterus which could be better characterized sonographically as other mass is difficult to exclude on this examination. There is no acute osseous abnormality. Visualized lung bases unremarkable. IMPRESSION: 1. At least three hernias, as described above, with the more inferior right paracentral hernia containing loops of somewhat distended small bowel. An early obstructive process is not excluded. 2. Masslike lesion in the right aspect of the pelvis, likely associated with a large fibroid uterus. Pelvic sonography could provide better characterization. Dictated by: Dictated on workstation # [id number]
[2021-05-10] MEDS ORDERED: ONDANSETRON 4 MG/2 ML (SDV) Z0FRAN IV PRN (23:15)
[2021-05-10] MEDS: LACTATED RINGERS 1,000 ML IV SCH (23:56)
[2021-05-10] MEDS: fentaNYL INJ 100 MCG/2 ML AMP IV PRN (23:56)
[2021-05-11 00:08] VITALS: BP 137/82
[2021-05-11] MEDS: fentaNYL INJ 100 MCG/2 ML AMP IV PRN ×4 (03:58→11:27)
[2021-05-11 04:09] LABS: BILIRUBIN,URINE NEGATIVE (NEGATIVE); CLARITY,URINE CLEAR; COLOR,URINE YELLOW; GLUCOSE, URINE (UA) 1+ (NEGATIVE); KETONES,URINE TRACE (NEGATIVE); LEUKOCYTE ESTERASE ,URINE 3+ (NEGATIVE); NITRITE,URINE POSITIVE (NEGATIVE); PH,URINE 7.5 (5-9); PROTEIN,URINE NEGATIVE (NEGATIVE)
[2021-05-11 04:15] LABS: BACTERIA,URINE LARGE /HPF; SQUAMOUS EPITHELIAL CELL,UR 0-2 /HPF; WBC,URINE 25-50 /HPF
[2021-05-11 04:22] LABS: AMPHETAMINE SCREEN, URINE POSITIVE (NEGATIVE); BARBITURATE SCREEN URINE NEGATIVE (NEGATIVE); BENZODIAZEPINES SCREEN URINE NEGATIVE (NEGATIVE); CANNABINOID SCREEN, URINE NEGATIVE (NEGATIVE); COCAINE SCREEN URINE NEGATIVE (NEGATIVE); METHADONE STAT NEGATIVE (NEGATIVE); METHAMPHETAMINE SCREEN URINE S POSITIVE (NEGATIVE); OPIATE SCREEN URINE NEGATIVE (NEGATIVE); OXYCODONE STAT NEGATIVE (NEGATIVE); PROPOXYPHENE STAT NEGATIVE (NEGATIVE); TRICYCLIC ANTIDEPRESSANTS SCRE NEGATIVE (NEGATIVE)
[2021-05-11 04:39] VITALS: BP 114/74
[2021-05-11 06:04] LABS: BASOPHILS % (AUTO) 0 % (0-10); EOSINOPHILS % (AUTO) 0 % (0-10); HEMATOCRIT 46 % (35-52); HEMOGLOBIN 14.9 g/dL (11.5-16.0); LYMPHOCYTES # (AUTO) 0.5 10^3/uL (1.0-4.0); LYMPHOCYTES % (AUTO) 5 % (12-44); MEAN CORPUSCULAR HEMOGLOBIN 31 pg (25-34); MEAN CORPUSCULAR HGB CONC 33 g/dL (32-36); MEAN CORPUSCULAR VOLUME 94 fL (80-99); MEAN PLATELET VOLUME 9.4 fL (9.0-12.2); MONOCYTES # (AUTO) 0.1 10^3/uL (0.0-1.0); MONOCYTES % (AUTO) 1 % (0-12); NEUTROPHILS # (AUTO) 9.6 10^3/uL (1.8-7.8); NEUTROPHILS % (AUTO) 94 % (42-75); PLATELET COUNT 201 10^3/uL (130-400); WHITE BLOOD COUNT 10.2 10^3/uL (4.3-11.0)
[2021-05-11 06:13] LABS: CHLORIDE 100 MMOL/L (98-107); POTASSIUM 4.5 MMOL/L (3.6-5.0); SODIUM 137 MMOL/L (135-145)
[2021-05-11 06:14] LABS: CALCIUM 8.9 MG/DL (8.5-10.1)
[2021-05-11 06:15] LABS: GLUCOSE 265 MG/DL (70-105)
[2021-05-11 06:16] LABS: CARBON DIOXIDE 24 MMOL/L (21-32)
[2021-05-11 06:19] LABS: BUN/CREATININE RATIO 14; CREATININE SERUM 0.72 MG/DL (0.60-1.30); GFR ESTIMATED > 60
[2021-05-11] MEDS: LACTATED RINGERS 1,000 ML IV SCH ×4 (06:29→21:01)
--- NOTE | 2021-05-11 06:34 | History & Physical-Hospitalist ---
History of Present Illness HPI/Chief Complaint CC: Abdominal Pain HPI: This is a 55 year-old morbidly obese white female of [facility] who presents with abdominal pain. Was found to have a small bowel obstruction. An NG tube was placed and Dr. Crenshaw was consulted and Fentanyl was given for pain. She was too large of a habitus to undergo the small bowel surgeries so she did a flat abdominal x-ray because the contrast given yesterday for CT scan would be adequate for visualization. Pt does have incontinence and purewick was initiated. She does have methamphetamines in her urine drug screen. Source: patient, RN/MD Exam Limitations: clinical condition Date Seen 05/11/21 Time Seen by a Provider: 10:00 Attending Physician Leo Bland MD [facility] Referring Physician Date of Admission May 10, 2021 at 22:13 Home Medications & Allergies Home Medications Reviewed patient Home Medication Reconciliation performed by pharmacy medication reconciliations theater technician and/or nursing. Patients Allergies have been reviewed. Allergies Allergies Coded Allergies latex (Verified Allergy, Intermediate, RASH, ITCHING, 03/02/11) vancomycin (Verified Allergy, Intermediate, HIVES, 03/02/11) iodine (Verified Allergy, Mild, "ILL", 03/02/11) lorazepam (Verified Allergy, Unknown, 07/12/17) phenobarbital (Verified Allergy, Unknown, 03/09/06) phenytoin (Verified Allergy, Unknown, 07/12/17) Past Deefoje-Etrntx-Fhsdka Hx Patient Social History Marrital Status: single Employed/Student: unemployed Tobacco Use?: No Use of E-Cig and/or Vaping dev: Yes Alcohol Use?: No Pt feels they are or have been: No Current Status Advance Directives: No Communicates: Verbally Primary Language: Nepali Past Medical History Surgeries: Abdominal, Appendectomy, Cardiac Sleep Apnea, COPD Atrial Fibrillation, Chronic Edema/Swelling, Heart Attack, High Cholesterol, Hypertension Seizure Disorder Abdominal Hernia, Gastroesophageal Reflux Diabetes, Non-Insulin dep Anxiety, Depression Blood Disorders: No PMHx: High blood sugar- likely diabetes, but reports no formal diagnosis Seizure disorder HTN GERD Anxiety/depression SurgHx: C section 7 abdominal surgeries for hernias Family Medical History Alzheimer's disease 19 MOTHER Arthritis 19 MOTHER Asthma 19 FATHER 19 MOTHER Colon cancer 19 MOTHER Completed stroke 19 FATHER 19 MOTHER Deafness or hearing loss Dementia 19 MOTHER Diabetes mellitus 19 FATHER Glaucoma 19 FATHER 19 MOTHER Hypertension 19 FATHER 19 MOTHER Myocardial infarction 19 FATHER 19 MOTHER Respiratory disorder 19 MOTHER Cancer SOCIAL HISTORY: -ETOH--RARE USE -DRUGS--THC, COCAINE (SNORTS IT), METHAMPHETAMINE (SNORTS IT)--ON 03/02/21 CLAIMS "NO DRUGS FOR 13 YEARS" BUT TESTED + FOR METHAPMPHETAMINES -SMOKES 3 PPD, NOW "VAPES" PAST SURGICAL HISTORY: -EXPLORATORY LAPAROTOMY FOR OVARIAN CYST -MULTIPLE HERNIA REPAIRS--5 OR 6 SURGERIES - X 2 -CARDIAC ABLATION FOR ATRIAL FIBRILLATION PT IS NON-MOBILE AND BED-BOUND AND REQUIRES A GILBERTO LIFT FOR TRANSFERS TO WHEELCHAIR PT REQUIRES 2 --24 HOUR CAREGIVERS WITH HER AT ALL TIMES. Review of Systems Constitutional: see HPI Gastrointestinal: abdominal pain, nausea, vomiting Physical Exam Physical Exam Vital Signs Vital Signs - First Documented 05/10/21 05/10/21 05/10/21 19:51 22:44 23:20 Temp 36.5 Pulse 93 Resp 18 B/P (MAP) 135/70 (91) Pulse Ox 98 O2 Delivery Room Air O2 Flow Rate 2.00 Capillary Refill : Less Than 3 Seconds Height, Weight, BMI Height: 5'4.00" Weight: 396lbs. 0.0oz. 179.330373qy; 70.80 BMI Method:Estimated General Appearance: No Apparent Distress, Chronically ill, Obese Eyes: Right Eye Normal Inspection, Right Eye PERRL HEENT: PERRL/EOMI, Normal ENT Inspection, Pharynx Normal, Moist Mucous Membranes Neck: Full Range of Motion, Normal Inspection, Non Tender Respiratory: Chest Non Tender, Lungs Clear, Normal Breath Sounds, No Accessory Muscle Use, No Respiratory Distress Cardiovascular: Regular Rate, Rhythm, No Edema, No Gallop, No JVD, No Murmur, Normal Peripheral Pulses Gastrointestinal: No Organomegaly, No Pulsatile Mass, Soft, Abnormal Bowel Sounds, Tenderness Back: Normal Inspection, No CVA Tenderness, No Vertebral Tenderness Extremity: Normal Capillary Refill, Normal Inspection, Normal Range of Motion, Non Tender, No Calf Tenderness, No Pedal Edema Neurologic/Psychiatric: Alert, Oriented x3, No Motor/Sensory Deficits, Normal Mood/Affect Skin: Normal Color, Warm/Dry Lymphatic: No Adenopathy Results Results/Procedures Labs Laboratory Tests 05/10/21 19:55 05/11/21 05:50 Patient resulted labs reviewed. Assessment/Plan Admission Diagnosis Assessment: Small bowel obstruction Super morbid obesity BMI 70.8 Methamphetamine use Diabetes Depression Anticoagulation Plan: Dr. Crenshaw consult appreciated NG tube Home meds Admission Status: Inpatient Order (span 2 midnights) Reason for Inpatient Admission: NÉSTORO VALERI ARROYO DO May 11, 2021 06:34
[2021-05-11 08:16] VITALS: BP 119/57
--- NOTE | 2021-05-11 08:24 | Diagnostic Imaging Report ---
Indication: NG tube placement. Time of exam: 12:32 AM Correlation is made with prior chest 03/02/2021. NG tube passes into the stomach. The heart size is stable. Lungs appear clear. No infiltrate or failure is detected. There is no effusion or pneumothorax detected. Impression: NG tube placement which passes below the diaphragm and appears to be located within the stomach. Dictated by: Dictated on workstation # [id number]
[2021-05-11 11:32] VITALS: BP 140/63
[2021-05-11] MEDS ORDERED: SUMA50TA2 PO (11:42)
[2021-05-11] MEDS ORDERED: ATOR40TA70 PO (11:42)
[2021-05-11] MEDS ORDERED: PANT20TA18 PO (11:42)
[2021-05-11] MEDS ORDERED: SILV25CR21 TOP (11:42)
[2021-05-11] MEDS ORDERED: APIX5TAB PO (11:42)
[2021-05-11] MEDS ORDERED: SERT-414 PO (11:42)
[2021-05-11] MEDS ORDERED: FLUT1BLS12 INH (11:42)
[2021-05-11] MEDS ORDERED: FLUT9.9S NSEACH (11:42)
[2021-05-11] MEDS ORDERED: MTP25TSR PO (11:42)
[2021-05-11] MEDS ORDERED: METF-399 PO (11:42)
[2021-05-11] MEDS ORDERED: ERGO1250 PO (11:42)
[2021-05-11] MEDS ORDERED: DOCU100T7 PO (11:42)
[2021-05-11] MEDS ORDERED: POTA20TA8 PO (11:47)
--- NOTE | 2021-05-11 12:52 | Consultation - Surgery ---
History of Present Illness History of Present Illness Patient Consulted On(mandie/time) 05/11/21 12:47 Time Seen by Provider: 12:34 History of Present Illness Surgery asked to consult regarding PSBO. HPI per ED: To ER with reports of right-sided abdominal pain that she states is caused by a hernia that pops out. Her was able to reduce it last night but the pain recurred today accompanied by nausea and vomiting. Timing/Duration: 1-2 Days Severity/Quality: Moderate Location: RLQ Radiation: No Radiation Activities at Onset: None When I spoke to pt this afternoon, she was holding bucket up like she was going to vomit. Pt has NGT in and knows she is NPO, but somehow a tray got dropped off so she ate it. She states she is passing a small amount of gas. No BMs and is feeling nauseous. Pain is about the same as yesterday. Allergies and Home Medications Allergies Coded Allergies: latex (Verified Allergy, Intermediate, RASH, ITCHING, 03/02/11) vancomycin (Verified Allergy, Intermediate, HIVES, 03/02/11) iodine (Verified Allergy, Mild, "ILL", 03/02/11) lorazepam (Verified Allergy, Unknown, 07/12/17) phenobarbital (Verified Allergy, Unknown, 03/09/06) phenytoin (Verified Allergy, Unknown, 07/12/17) Home Medications Albuterol Sulfate 2.5 Mg/3 Ml Vial.neb, 2.5 MG NEB Q4H PRN for SHORTNESS OF BREATH, (Reported) Last Action: Reviewed Apixaban 5 Mg Tablet, 5 MG PO BID, (Reported) Last Action: Reviewed Atorvastatin Calcium 40 Mg Tablet, 40 MG PO DAILY, (Reported) Last Action: Reviewed Docusate Sodium 100 Mg Tablet, 100-200 MG PO BID PRN for CONSTIPATION-1ST LINE, (Reported) Last Action: Reviewed Ergocalciferol (Vitamin D2) 1,250 Mcg Capsule, 1,250 MCG PO FRI, (Reported) Last Action: Reviewed Fluticasone Propion/Salmeterol 1 Each Blst.w.dev, 1 PUFF INH BID PRN for SHORTNESS OF BREATH, (Reported) Last Action: Reviewed Fluticasone Propionate 9.9 Ml [place].susp, 1 SPRAY NSEACH BID PRN for CONGESTION, (Reported) Last Action: Reviewed Furosemide 40 Mg Tablet, 40 MG PO BID, (Reported) Last Action: Reviewed Hydroxyzine Pamoate 25 Mg Capsule, 25 MG PO HS PRN for ANXIETY, (Reported) Last Action: Reviewed Metformin HCl 1,000 Mg Tablet, 1,000 MG PO BID, (Reported) Last Action: Reviewed Metoprolol Succinate 25 Mg Tab.er.24h, 25 MG PO DAILY, (Reported) Last Action: Reviewed Pantoprazole Sodium 20 Mg Tablet.dr, 20 MG PO DAILY, (Reported) Last Action: Reviewed Potassium Chloride 20 Meq Tab.er.prt, 20 MEQ PO BID, (Reported) Last Action: Reviewed Sertraline HCl 100 Mg Tablet, 100 MG PO DAILY, (Reported) Last Action: Reviewed Silver Sulfadiazine 25 Gm Cream..g., 1 APPLIC TOP BID PRN for SKIN IRRITATION, (Reported) Last Action: Reviewed Sumatriptan Succinate 50 Mg Tablet, 50 MG PO UD PRN for MIGRAINE, (Reported) TAKE 1 TAB AT SYMPTOM ONSET AND MAY TAKE ANOTHER DOSE AFTER 2 HOURS IF SYMPTOMS ARE NOT RELIEVED Last Action: Reviewed Patient Home Medication List Home Medication List Reviewed: Yes Past Iwjgtim-[id number]-[id number] Hx Patient Social History Smoking Status: Former Smoker Type Used: Electronic/Vapor Recent Hopitalizations: Yes (HERNIA X 5, C-SECTIONS) Alcohol Use?: No Substance type: Amphetamines, Methamphetamine Have you traveled recently?: No Surgeries History of Surgeries: Yes (LAPAROTOMY, C-SECTIONS, HERNIA REPAIR, CARDIAC ABLATION;) Surgeries: Abdominal, Appendectomy, Cardiac Respiratory History of Respiratory Disorde: Yes (CHRONIC RESPIRATORY FAILURE) Respiratory Disorders: Sleep Apnea, COPD Cardiovascular History of Cardiac Disorders: Yes Cardiac Disorders: Atrial Fibrillation, Chronic Edema/Swelling, Heart Attack, High Cholesterol, Hypertension Neurological History of Neurological Disord: Yes Neurological Disorders: Seizure Disorder Reproductive System Hx Reproductive Disorders: Yes Female Reproductive Disorders: Ovarian Cyst Genitourinary History of Genitourinary Disor: No Gastrointestinal History of Gastrointestinal Di: Yes (VENTRAL HERNIA) Gastrointestinal Disorders: Abdominal Hernia, Gastroesophageal Reflux Musculoskeletal History of Musculoskeletal Dis: Yes (NON-MOBILE/BED BOUND DUE TO MORBID OBES ITY) Endocrine History of Endocrine Disorders: Yes (MORBID OBESITY) Endocrine Disorders: Diabetes, Non-Insulin dep HEENT History of HEENT Disorders: No Cancer History of Cancer: No Psychosocial History of Psychiatric Problem: Yes Behavioral Health Disorders: Anxiety, Depression Integumentary History of Skin or Integumenta: No Blood Transfusions History of Blood Disorders: No Family Medical History Significant Family History: Cancer, Diabetes Family Medial History: Alzheimer's disease 19 MOTHER Arthritis 19 MOTHER Asthma 19 FATHER 19 MOTHER Colon cancer 19 MOTHER Completed stroke 19 FATHER 19 MOTHER Deafness or hearing loss Dementia 19 MOTHER Diabetes mellitus 19 FATHER Glaucoma 19 FATHER 19 MOTHER Hypertension 19 FATHER 19 MOTHER Myocardial infarction 19 FATHER 19 MOTHER Respiratory disorder 19 MOTHER Review of Systems-General Constitutional: malaise, weakness, other (pt hasn't walked in a year) EENTM: No blurred vision, No double vision, No mouth pain, No mouth swelling, No epistaxis Respiratory: No cough, No dyspnea on exertion; short of breath Cardiovascular: No chest pain, No palpitations Gastrointestinal: abdominal pain; No hematemesis, No jaundice; nausea, vomiting Genitourinary: dysuria, frequency; No hematuria; incontinence Musculoskeletal: joint swelling, muscle pain, muscle stiffness Skin: No change in color, No change in hair/nails Psychiatric/Neurological: Anxiety, Depressed; Denies Seizure, Denies Tremors Other pt denies any hx of abnormal bleeding or bruising Physical Exam-General Problems Physical Exam Vital Signs Vital Signs - First Documented 05/10/21 05/10/21 05/10/21 19:51 22:44 23:20 Temp 36.5 Pulse 93 Resp 18 B/P (MAP) 135/70 (91) Pulse Ox 98 O2 Delivery Room Air O2 Flow Rate 2.00 Capillary Refill : Less Than 3 Seconds General Appearance: no apparent distress, obese (super morbidly) Eyes: Bilateral Eye PERRL, Bilateral Eye EOMI HEENT: pharynx normal; No scleral icterus (R), No scleral icterus (L); other (NGT in place) Neck: non-tender, supple Respiratory: lungs clear, normal breath sounds, no respiratory distress, no accessory muscle use Cardiovascular: regular rate, rhythm, no murmur Gastrointestinal: soft, distended, guarding (voluntary), tenderness, hernia (multiple ventral hernia) Back: no CVA tenderness, no vertebral tenderness Extremities: no calf tenderness, normal capillary refill Neurologic/Psychiatric: alert, oriented x 3 Skin: normal color, warm/dry Lymphatic: no adenopathy (neck, axilla or supraclavicular) Data Review Labs Laboratory Tests 05/10/21 19:55: White Blood Count 11.0, Red Blood Count 4.83, Hemoglobin 14.9, Hematocrit 45, Mean Corpuscular Volume 94, Mean Corpuscular Hemoglobin 31, Mean Corpuscular Hemoglobin Concent 33, Red Cell Distribution Width 13.5, Platelet Count 197, Mean Platelet Volume 8.7L, Immature Granulocyte % (Auto) 0, Neutrophils (%) (Auto) 79H, Lymphocytes (%) (Auto) 13, Monocytes (%) (Auto) 6, Eosinophils (%) (Auto) 1, Basophils (%) (Auto) 0, Neutrophils # (Auto) 8.7H, Lymphocytes # (Auto) 1.5, Monocytes # (Auto) 0.7, Eosinophils # (Auto) 0.1, Basophils # (Auto) 0.0, Immature Granulocyte # (Auto) 0.0, Sodium Level 135, Potassium Level 4.3, Chloride Level 98, Carbon Dioxide Level 26, Anion Gap 11, Blood Urea Nitrogen 11, Creatinine 0.80, Estimat Glomerular Filtration Rate > 60, BUN/Creatinine Ratio 14, Glucose Level 192H, Calcium Level 9.2, Corrected Calcium 9.8, Total Bilirubin 0.8, Aspartate Amino Transf (AST/SGOT) 18, Alanine Aminotransferase (ALT/SGPT) 19, Alkaline Phosphatase 121, Total Protein 7.0, Albumin 3.3 05/11/21 03:59: Urine Color YELLOW, Urine Clarity CLEAR, Urine pH 7.5, Urine Specific [place] <=1.005, Urine Protein NEGATIVE, Urine Glucose (UA) 1+H, Urine Ketones TRACEH, Urine Nitrite POSITIVEH, Urine Bilirubin NEGATIVE, Urine Urobilinogen 0.2, Urine Leukocyte Esterase 3+H, Urine RBC (Auto) 1+H, Urine RBC 5-10H, Urine WBC 25-50H, Urine Squamous Epithelial Cells 0-2, Urine Crystals NONE, Urine Bacteria LARGEH, Urine Casts NONE, Urine Mucus LARGEH, Urine Culture Indicated YES, Urine Opiates Screen NEGATIVE, Urine Oxycodone Screen NEGATIVE, Urine Methadone Screen NEGATIVE, Urine Propoxyphene Screen NEGATIVE, Urine Barbiturates Screen NEGATIVE, Ur Tricyclic Antidepressants Screen NEGATIVE, Urine Phencyclidine Screen NEGATIVE, Urine Amphetamines Screen POSITIVEH, Urine Methamphetamines Screen POSITIVEH, Urine Benzodiazepines Screen NEGATIVE, Urine Cocaine Screen NEGATIVE, Urine Cannabinoids Screen NEGATIVE 05/11/21 05:50: White Blood Count 10.2, Red Blood Count 4.85, Hemoglobin 14.9, Hematocrit 46, Mean Corpuscular Volume 94, Mean Corpuscular Hemoglobin 31, Mean Corpuscular Hemoglobin Concent 33, Red Cell Distribution Width 13.2, Platelet Count 201, Mean Platelet Volume 9.4, Immature Granulocyte % (Auto) 0, Neutrophils (%) (Auto) 94H, Lymphocytes (%) (Auto) 5L, Monocytes (%) (Auto) 1, Eosinophils (%) (Auto) 0, Basophils (%) (Auto) 0, Neutrophils # (Auto) 9.6H, Lymphocytes # (Auto) 0.5L, Monocytes # (Auto) 0.1, Eosinophils # (Auto) 0.0, Basophils # (Auto) 0.0, Immature Granulocyte # (Auto) 0.0, Sodium Level 137, Potassium Level 4.5, Chloride Level 100, Carbon Dioxide Level 24, Anion Gap 13, Blood Urea Nitrogen 10, Creatinine 0.72, Estimat Glomerular Filtration Rate > 60, BUN/Creatinine Ratio 14, Glucose Level 265H, Calcium Level 8.9 Radiology Date of Exam:05/10/21 CT ABDOMEN/PELVIS W INDICATION: Right lower quadrant pain, nausea and vomiting. Known hernia. EXAMINATION: CT abdomen and pelvis with contrast, 05/10/2021. COMPARISON: 05/04/2020. FINDINGS: There is a large right paracentral ventral hernia incompletely imaged along its right lateral and anterior border. Loops of large and small bowel appear to extend into the herniation without evidence for strangulation or obstruction. More inferiorly a left paracentral hernia is noted which contains portions of the colon without obstruction or strangulation appreciated. This extends distally towards the midline of the pelvis. There is a 3rd hernia right paracentrally in the lower abdomen containing loops of bowel as well. Within this hernia a few loops of slightly prominent small bowel noted and an early obstructive process is not excluded. The majority of the bowel loops lie within the hernias described. A small portion of the stomach extends into the more ventral right paracentral hernia. There is fatty infiltration throughout the liver. The spleen is unremarkable. Gallbladder and adrenal glands are unremarkable. Pancreas atrophy. There is a nonobstructive stone in the left kidney. Kidneys are otherwise unremarkable. There is no ascites or free air. There is a large enhancing lesion in the right aspect of the pelvis likely an enlarged fibroid uterus which could be better characterized sonographically as other mass is difficult to exclude on this examination. There is no acute osseous abnormality. Visualized lung bases unremarkable. IMPRESSION: 1. At least three hernias, as described above, with the more inferior right paracentral hernia containing loops of somewhat distended small bowel. An early obstructive process is not excluded. 2. Masslike lesion in the right aspect of the pelvis, likely associated with a large fibroid uterus. Pelvic sonography could provide better characterization. Dictated on workstation # [id number] Dict: 05/10/212110 Trans: 05/10/212207 [facility] [id number] Interpreted by: BRADEN LYCNH MD Assessment/Plan Assessment/Plan Assessment/Plan PSBO Multiple Incarcerated Ventral/Incisional hernias Super Morbid Obesity DM II UTI Plan is NGT, NPO, IV fluids, IV ABX, pain control. I ordered a flat plate today because she had CT with oral contrast today and it appears on today's xray that there is contrast in the large intestine. Therefore, she does not have a bowel obstruction. I would treat this more like an ileus and wait for return of bowel function. This may take longer because she does not ambulate. She is unfortunately not a candidate for hernia repair because of her BMI, DM and hx of previous attempted repair. She will only get surgery if there is an obstruction or compromised bowel. JOSEF CARMONA DO May 11, 2021 12:52
--- NOTE | 2021-05-11 13:35 | Diagnostic Imaging Report ---
INDICATION: Evaluate for contrast transit. COMPARISON: CT scan of 05/10/2021. FINDINGS: A large hernia is noted ventrally. Contrast is now present throughout the colon. No significant residual contrast within the stomach or small bowel. IMPRESSION: There has been transit of virtually all of the contrast into the colon now. Dictated by: Dictated on workstation # [id number]
[2021-05-11] MEDS ORDERED: morphine INJ 4 MG/ML 1 ML (VIAL/SYRINGE) IVP PRN (14:45)
[2021-05-11 15:14] VITALS: BP 122/71
[2021-05-11 19:32] VITALS: BP 115/56
[2021-05-12] VITALS (7 sets, daily range): BP systolic 115–150; BP diastolic 54–77
[2021-05-12] MEDS: LACTATED RINGERS 1,000 ML IV SCH ×3 (03:38→20:18)
[2021-05-12] MEDS ORDERED: SUMAtriptan 50 MG (IMITREX) TAB PO PRN (05:30)
[2021-05-12] MEDS ORDERED: SILVER SULFADIAZINE 400 GM CREAM TOP PRN (05:30)
[2021-05-12] MEDS ORDERED: RT-ALBUTEROL SULF 2.5 MG/3 ML PRE-MIX VIAL IH PRN (05:30)
[2021-05-12] MEDS ORDERED: hydrOXYzine (VISTARIL/ATARAX) 25 MG capsule/tablet PO PRN (05:30)
[2021-05-12 05:58] LABS: BASOPHILS % (AUTO) 0 % (0-10); EOSINOPHILS % (AUTO) 0 % (0-10); HEMATOCRIT 40 % (35-52); LYMPHOCYTES % (AUTO) 12 % (12-44); MEAN CORPUSCULAR HEMOGLOBIN 31 pg (25-34); MEAN CORPUSCULAR HGB CONC 32 g/dL (32-36); MEAN CORPUSCULAR VOLUME 95 fL (80-99); MEAN PLATELET VOLUME 9.4 fL (9.0-12.2); MONOCYTES # (AUTO) 0.6 10^3/uL (0.0-1.0); MONOCYTES % (AUTO) 7 % (0-12); NEUTROPHILS # (AUTO) 7.1 10^3/uL (1.8-7.8); NEUTROPHILS % (AUTO) 81 % (42-75); PLATELET COUNT 170 10^3/uL (130-400); WHITE BLOOD COUNT 8.8 10^3/uL (4.3-11.0)
[2021-05-12] MEDS ORDERED: RT--FLUTICASONE/SALMETEROL 113-14 (AIRDUO RespiCLICK) IH PRN (06:00)
[2021-05-12] MEDS ORDERED: DOCUSATE SODIUM 100 MG (COLACE) CAP PO PRN (06:00)
[2021-05-12 06:13] LABS: ALBUMIN 2.9 GM/DL (3.2-4.5); CHLORIDE 101 MMOL/L (98-107); POTASSIUM 4.1 MMOL/L (3.6-5.0); SODIUM 138 MMOL/L (135-145)
[2021-05-12 06:15] LABS: CALCIUM 8.2 MG/DL (8.5-10.1)
[2021-05-12] MEDS ORDERED: FLUTICASONE NASAL SPRAY (FLONASE) 16 GM BTL NS PRN (06:15)
[2021-05-12 06:16] LABS: GLUCOSE 169 MG/DL (70-105)
[2021-05-12 06:17] LABS: CARBON DIOXIDE 27 MMOL/L (21-32)
[2021-05-12 06:18] LABS: BILIRUBIN,TOTAL 0.6 MG/DL (0.1-1.0)
[2021-05-12 06:19] LABS: ALKALINE PHOSPHATASE 97 U/L (40-136); CREATININE SERUM 0.71 MG/DL (0.60-1.30); GFR ESTIMATED > 60
[2021-05-12 06:20] LABS: BUN/CREATININE RATIO 11
[2021-05-12 06:22] LABS: ALANINE AMINOTRANSFERASE 16 U/L (0-55)
[2021-05-12] MEDS: PANTOPRAZOLE 20 MG TABLET (PROTONIX) PO SCH (06:31)
--- NOTE | 2021-05-12 06:31 | Progress Note - Hospitalist ---
Subjective HPI/CC On Admission Date Seen by Provider: May 12, 2021 Time Seen by Provider: 09:00 CC: Abdominal Pain HPI: This is a 55 year-old morbidly obese white female of [facility] who presents with abdominal pain. Was found to have a small bowel obstruction. An NG tube was placed and Dr. Crenshaw was consulted and Fentanyl was given for pain. She was too large of a habitus to undergo the small bowel surgeries so she did a flat abdominal x-ray because the contrast given yesterday for CT scan would be adequate for visualization. Pt does have incontinence and purewick was initiated. She does have methamphetamines in her urine drug screen. Subjective/Events-last exam Pt doing well NG tube came out last night Contrast went all the way through her bowel Fever of 102, prompted septic work-up Initiated antibiotic for UTI and COVID test was negative Bowel sounds are present today, no bowel movement yet Review of Systems General: Fatigue, Malaise Gastrointestinal: Abdominal Pain Focused Exam Lactate Level 05/12/21 09:20: Lactic Acid Level 0.74 Objective Exam Vital Signs Vital Signs Date Time Temp Pulse Resp B/P (MAP) Pulse Ox O2 Delivery O2 Flow Rate FiO2 05/13/21 04:46 36.0 80 20 134/68 (90) 96 Nasal Cannula 2.50 Capillary Refill : Less Than 3 Seconds General Appearance: No Apparent Distress, WD/WN, Chronically ill, Obese Respiratory: Lungs Clear Cardiovascular: Regular Rate, Rhythm Neurologic/Psychiatric: Alert, Oriented x3, Depressed Affect Results/Procedures Lab Laboratory Tests 05/12/21 05:28 Patient resulted labs reviewed. Assessment/Plan Assessment and Plan Assess & Plan/Chief Complaint Assessment: Small bowel obstruction Super morbid obesity BMI 70.8 Methamphetamine use Diabetes Depression Anticoagulation Plan: Dr. Crenshaw consult appreciated NG tube Home meds 05/12/2021: Monitor closely Advance diet Sepsis work-up VALERI ARROYO DO May 12, 2021 06:31
[2021-05-12] MEDS: APIXABAN 5 MG (ELIQUIS) TABLET PO SCH ×2 (09:58→20:19)
[2021-05-12] MEDS: SERTRALINE 100 MG (ZOLOFT) TAB PO SCH (09:58)
[2021-05-12] MEDS: FUROSEMIDE 40 MG (LASIX) TAB PO SCH ×2 (09:58→16:33)
[2021-05-12] MEDS: cefTRIAXone 1,000 MG in WATER (STERILE) FOR INJECTION 10 ML IV SCH (09:59)
[2021-05-12] MEDS: KCL 20 MEQ TAB (K-DUR) PO SCH ×2 (09:59→16:33)
[2021-05-12] MEDS: ACETAMINOPHEN 325 MG TABLET PO PRN (09:59)
--- NOTE | 2021-05-12 12:57 | Progress Note - Surgery ---
Subjective Time Seen by a Provider: 12:49 Subjective/Events-last exam Pt seen and examined, nurse states she pulled out NGT last night. Pt denies abd pain and no N/V. She states she has had flatus, but no BM "I gotta eat to have a BM". Review of Systems General: No Chills; Malaise, Other (fever last night) Pulmonary: No Dyspnea, No Cough Cardiovascular: No: Chest Pain, Palpitations Gastrointestinal: No: Nausea, Vomiting, Abdominal Pain Focused Exam Lactate Level 05/12/21 09:20: Lactic Acid Level 0.74 Lactic Acid Level Laboratory Tests Test 05/12/21 09:20 Lactic Acid Level 0.74 MMOL/L (0.50-2.00) Objective Exam Vital Signs Date Time Temp Pulse Resp B/P (MAP) Pulse Ox O2 Delivery O2 Flow Rate FiO2 05/12/21 11:25 35.9 91 22 115/72 (86) 96 Nasal Cannula 2.50 05/12/21 09:59 38.9 05/12/21 08:15 38.9 101 22 150/73 (98) 93 Nasal Cannula 2.50 05/12/21 08:00 Nasal Cannula 2.00 05/12/21 04:29 37.7 107 22 115/71 (86) 94 Nasal Cannula 2.50 05/12/21 00:25 37.5 112 22 137/54 (81) 92 Nasal Cannula 2.50 05/11/21 19:50 Nasal Cannula 2.00 05/11/21 19:32 37.2 111 24 115/56 (75) 94 Nasal Cannula 2.50 05/11/21 15:14 36.6 95 20 122/71 (88) 95 Nasal Cannula 2.50 I & O 05/12/21 07:00 Intake Total 2300 ml Output Total 1725 ml Balance 575 ml Capillary Refill : Less Than 3 Seconds General Appearance: No Apparent Distress, Chronically ill, Obese (super morbidly) HEENT: PERRL/EOMI, Moist Mucous Membranes Respiratory: Chest Non Tender, Lungs Clear, Normal Breath Sounds, No Accessory Muscle Use, No Respiratory Distress Cardiovascular: Regular Rate, Rhythm, No JVD, Normal Peripheral Pulses Gastrointestinal: soft, distended, tenderness, hernia (multiple ventral hernia) Neurologic/Psychiatric: Alert, Oriented x3 Results Lab Laboratory Tests 05/12/21 05:28: White Blood Count 8.8, Red Blood Count 4.21, Hemoglobin 13.0, Hematocrit 40, Mean Corpuscular Volume 95, Mean Corpuscular Hemoglobin 31, Mean Corpuscular Hemoglobin Concent 32, Red Cell Distribution Width 14.0, Platelet Count 170, Mean Platelet Volume 9.4, Immature Granulocyte % (Auto) 1, Neutrophils (%) (Auto) 81H, Lymphocytes (%) (Auto) 12, Monocytes (%) (Auto) 7, Eosinophils (%) (Auto) 0, Basophils (%) (Auto) 0, Neutrophils # (Auto) 7.1, Lymphocytes # (Auto) 1.0, Monocytes # (Auto) 0.6, Eosinophils # (Auto) 0.0, Basophils # (Auto) 0.0, Immature Granulocyte # (Auto) 0.1, Sodium Level 138, Potassium Level 4.1, Chloride Level 101, Carbon Dioxide Level 27, Anion Gap 10, Blood Urea Nitrogen 8, Creatinine 0.71, Estimat Glomerular Filtration Rate > 60, BUN/Creatinine Ratio 11, Glucose Level 169H, Calcium Level 8.2L, Corrected Calcium 9.1, Total Bilirubin 0.6, Aspartate Amino Transf (AST/SGOT) 11, Alanine Aminotransferase (ALT/SGPT) 16, Alkaline Phosphatase 97, Total Protein 6.0L, Albumin 2.9L, Procalcitonin 0.24H 05/12/21 08:05: Influenza Type A (RT-PCR) Not Detected, Influenza Type B (RT-PCR) Not Detected, SARS-CoV-2 RNA (RT-PCR) Not Detected 05/12/21 09:20: Lactic Acid Level 0.74 Assessment/Plan Assessment/Plan Assessment/Plan PSBO - resolved Multiple Incarcerated Ventral/Incisional hernias Super Morbid Obesity DM II UTI Pt pulled her own NGT last night; no adverse outcome and therefore will try clear liquids. Continue IV fluids, IV ABX, pain control. Will continue to wait for return of bowel function. She can go home when she is having BM's; would switch her to PO pain meds or none. She is unfortunately not a candidate for hernia repair because of her BMI, DM and hx of previous attempted repair. She will only get surgery if there is an obstruction or compromised bowel. JOSEF CARMONA DO May 12, 2021 12:57
--- NOTE | 2021-05-12 13:35 | Diagnostic Imaging Report ---
INDICATION: Fever. COMPARISON: 05/11/2021. FINDINGS: A single frontal radiographic view of the chest was obtained and demonstrates interval removal of the previously placed gastric tube. The cardiac silhouette and pulmonary vasculature are within normal. The lungs are clear. There is no focal consolidation, large effusion, or pneumothorax. The osseous structures show no gross acute abnormalities. IMPRESSION: No acute cardiopulmonary process. Dictated by: Dictated on workstation # [id number]
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
--- NOTE | 2021-05-12 14:47 | Physical Therapy Evaluation ---
PT Evaluation-General Medical Diagnosis Admission Date May 10, 2021 at 22:13 Medical Diagnosis: Small bowel obstruction Onset Date: May 10, 2021 Therapy Diagnosis Therapy Diagnosis: debility/weakness Height/Weight Height (Feet): 5 Height (Inches): 4.00 Weight (Pounds): 396 Weight (Ounces): 0.0 Precautions Precautions/Isolations: Seizure, Fall Prevention, Standard Precautions Referral Physician: Ara Reason for Referral: Evaluation/Treatment Medical History Pertinent Medical History: Atrial Fib, COPD, DM, HTN, [place], Smoking Additional Medical History drug use Current History EMS secondary to right side abdominal pain Reviewed History: Yes Social History Home: Apartment Current Living Status: caregiver Entry Into Home: Level Entry Prior Prior Level of Function SCALE: Activities may be completed with or without assistive devices. 1-Gfnyvcxekn-kfopdef completes the activity by him/herself with no assistance from a helper. 5-Set-up or Clean-up Assistance-helper sets up or cleans up; patient completes activity. [place] assists only prior to or following the activity. 4-Supervision or Touching Assistance-helper provides verbal cues and/or touching/steadying and/or contact guard assistance as patient completes activity. Assistance may be provided throughout the activity or intermittently. 3-Partial/Moderate Assistance-helper does LESS THAN HALF the effort. [place] lifts, holds or supports trunk or limbs, but provides less than half the effort. 2-Substantial/Maximal Assistance-helper does MORE THAN HALF the effort. [place] lifts or holds trunk or limbs and provides more than half the effort. 1-Tvwqznxtp-cbckwv does ALL the effort. Patient does none of the effort to complete the activity. Or, the assistance of 2 or more helpers is required for the patient to complete the activity. If activity was not attempted, code reason: 7-Patient Refused. 9-Not Applicable-not attempted and the patient did not perform the activity before the current illness, exacerbation or injury. 10-Not Attempted due to Environmental Limitations-(lack of equipment, weather restraints, etc.). 88-Not Attempted due to Medical Conditions or Safety Concerns. Bed Mobility: 1 Transfers (B,C,W/C): 1 (Miles lift in home) Gait: 9 Stairs: 9 Wheelchair Mobility: 1 Indoor Mobility (Ambulation): Not [place] Stairs: Not [place] Prior Devices Use: Manual wheelchair, Mechanical lift PT Evaluation-Current Subjective Patient is very agreeable to participate with therapy. Objective Patient Orientation: Normal For Age Attachments: IV ROM/Strength ROM Lower Extremities limited due to morbid obesity Strength Lower Extremities 3-/5 grossly bilateral LE Integumentary/Posture Integumentary refer to nursing notes Bowel Incontinence: No Bladder Incontinence: Yes Neuromuscular (Tone, Coordination, Reflexes) grossly intact Sensory Vision: Functional Hearing: Functional Transfers Roll Left to Right (QC): 1 (x 2) Sit to Lying (QC): 9 Lying to Sitting/Side of Bed(Q: 9 Sit to Stand (QC): 9 Chair/Mvg-wv-Cvvpp Xfer(QC): 1 (Imles lift) Gait Does the Patient Walk?: No and Walking Goal NOT indicated Treatment dependent assist with all mobility with Miles lift transfer bed to recliner Assessment/Needs 61 y.o. female, will be seen short term to address bilateral LE exercises/strength and assist with Miles Lift transfers if needed. Rehab Potential: Fair PT Short Term Goals Short Term Goals Time Frame: May 15, 2021 Roll Left & Right: 1 PT Plan Problem List Problem List: Activity Tolerance, Functional Strength, Bed Mobility, ROM Treatment/Plan Treatment Plan: Continue Plan of Care Treatment Plan: Bed Mobility, Education, Therapeutic Exercise, Transfers Treatment Duration: May 15, 2021 Frequency: 4 times per week Estimated Hrs Per Day: .25 hour per day Patient and/or Family Agrees t: Yes Time/GCodes Time In: 1335 Time Out: 1400 Total Billed Treatment Time: 25 Total Billed Treatment 1 visit EVModC 10 min FA 15 min JODY GARIBAY PT May 12, 2021 14:47
[2021-05-13 04:46] VITALS: BP 134/68
[2021-05-13 06:19] LABS: BASOPHILS % (AUTO) 1 % (0-10); EOSINOPHILS # (AUTO) 0.1 10^3/uL (0.0-0.3); EOSINOPHILS % (AUTO) 1 % (0-10); HEMATOCRIT 40 % (35-52); HEMOGLOBIN 12.7 g/dL (11.5-16.0); LYMPHOCYTES # (AUTO) 1.4 10^3/uL (1.0-4.0); LYMPHOCYTES % (AUTO) 21 % (12-44); MEAN CORPUSCULAR HEMOGLOBIN 30 pg (25-34); MEAN CORPUSCULAR HGB CONC 32 g/dL (32-36); MEAN CORPUSCULAR VOLUME 96 fL (80-99); MEAN PLATELET VOLUME 9.1 fL (9.0-12.2); MONOCYTES # (AUTO) 0.7 10^3/uL (0.0-1.0); MONOCYTES % (AUTO) 11 % (0-12); NEUTROPHILS # (AUTO) 4.4 10^3/uL (1.8-7.8); NEUTROPHILS % (AUTO) 66 % (42-75); PLATELET COUNT 137 10^3/uL (130-400); WHITE BLOOD COUNT 6.6 10^3/uL (4.3-11.0)
[2021-05-13 06:33] LABS: ALBUMIN 2.8 GM/DL (3.2-4.5); CHLORIDE 102 MMOL/L (98-107); POTASSIUM 3.9 MMOL/L (3.6-5.0); SODIUM 136 MMOL/L (135-145)
[2021-05-13 06:34] LABS: CALCIUM 7.9 MG/DL (8.5-10.1)
[2021-05-13 06:35] LABS: GLUCOSE 147 MG/DL (70-105); TOTAL PROTEIN 5.9 GM/DL (6.4-8.2)
[2021-05-13 06:36] LABS: CARBON DIOXIDE 25 MMOL/L (21-32)
[2021-05-13 06:37] LABS: BILIRUBIN,TOTAL 0.4 MG/DL (0.1-1.0)
[2021-05-13 06:39] LABS: ALKALINE PHOSPHATASE 88 U/L (40-136); CREATININE SERUM 0.63 MG/DL (0.60-1.30); GFR ESTIMATED > 60
[2021-05-13 06:40] LABS: BUN/CREATININE RATIO 10
[2021-05-13 06:42] LABS: ALANINE AMINOTRANSFERASE 16 U/L (0-55)
[2021-05-13] MEDS: cefTRIAXone 1,000 MG in WATER (STERILE) FOR INJECTION 10 ML IV SCH (06:45)
[2021-05-13] MEDS: PANTOPRAZOLE 20 MG TABLET (PROTONIX) PO SCH (06:45)
[2021-05-13] MEDS: FUROSEMIDE 40 MG (LASIX) TAB PO SCH ×2 (08:05→16:01)
[2021-05-13] MEDS: KCL 20 MEQ TAB (K-DUR) PO SCH (08:06)
[2021-05-13] MEDS: APIXABAN 5 MG (ELIQUIS) TABLET PO SCH (08:06)
[2021-05-13] MEDS: ACETAMINOPHEN 325 MG TABLET PO PRN (08:06)
[2021-05-13] MEDS: SERTRALINE 100 MG (ZOLOFT) TAB PO SCH (08:06)
[2021-05-13] MEDS: LACTATED RINGERS 1,000 ML IV SCH (08:16)
[2021-05-13 08:17] VITALS: BP 135/65
--- NOTE | 2021-05-13 10:46 | Physical Therapy Daily Note ---
PT Daily Note-Current Subjective Patient in bed pre tx, agrees to PT, voices no complaints of pain. Will be hoyered to recliner with 3 person assist. Appearance Patient in recliner post tx with nurse call, phone, tray, all needs met. Mental Status Patient Orientation: Person, Place, Situation Transfers SCALE: Activities may be completed with or without assistive devices. 7-Iwwjgdumuz-wsagmir completes the activity by him/herself with no assistance from a helper. 5-Set-up or Clean-up Assistance-helper sets up or cleans up; patient completes activity. [place] assists only prior to or following the activity. 4-Supervision or Touching Assistance-helper provides verbal cues and/or touching/steadying and/or contact guard assistance as patient completes activity. Assistance may be provided throughout the activity or intermittently. 3-Partial/Moderate Assistance-helper does LESS THAN HALF the effort. [place] lifts, holds or supports trunk or limbs, but provides less than half the effort. 2-Substantial/Maximal Assistance-helper does MORE THAN HALF the effort. [place] lifts or holds trunk or limbs and provides more than half the effort. 7-Orbntlihf-fmgpsz does ALL the effort. Patient does none of the effort to complete the activity. Or, the assistance of 2 or more helpers is required for the patient to complete the activity. If activity was not attempted, code reason: 7-Patient Refused. 9-Not Applicable-not attempted and the patient did not perform the activity before the current illness, exacerbation or injury. 10-Not Attempted due to Environmental Limitations-(lack of equipment, weather restraints, etc.). 88-Not Attempted due to Medical Conditions or Safety Concerns. Roll Left & Right (QC): 2 Chair/Neo-qh-Vxtgg Xfer(QC): 1 Patient has to roll from side to side with max assist for replacing soiled pad and cleaning and placing cheo sling. Patient is hoyered to recliner (via 3 people). She has some bleeding behind her left knee discovered after cheo transfer. Nurse notified. Unclear if this happened during transfer. Treatments rolling, transfer Assessment Current Status: Poor Progress dependent for mobility PT Short Term Goals Short Term Goals Time Frame: May 15, 2021 Roll Left & Right: 1 PT Plan Problem List Problem List: Activity Tolerance, Functional Strength, Safety, Balance, Gait, Transfer, Bed Mobility, ROM Treatment/Plan Treatment Plan: Continue Plan of Care Treatment Plan: Bed Mobility, Education, Therapeutic Exercise, Transfers Treatment Duration: May 15, 2021 Frequency: 4 times per week Estimated Hrs Per Day: .25 hour per day Patient and/or Family Agrees t: Yes Safety Risks/Education Patient Education: Transfer Techniques, Correct Positioning, Safety Issues Teaching Recipient: Patient Teaching Methods: Demonstration, Discussion Response to Teaching: Reinforcement Needed Time/GCodes Time In: 1015 Time Out: 1031 Total Billed Treatment Time: 16 Total Billed Treatment 1 visit FA Khloe' DOUGLAS AVILES PT May 13, 2021 10:46
--- NOTE | 2021-05-13 11:04 | Progress Note - Surgery ---
Subjective Time Seen by a Provider: 10:48 Subjective/Events-last exam Pt seen sitting up in chair, pt is tolerating diet and having flatus. States her belly is still sore. Review of Systems General: Fatigue Pulmonary: No Dyspnea, No Cough Cardiovascular: No: Chest Pain, Palpitations Gastrointestinal: Abdominal Pain; No: Nausea, Vomiting Focused Exam Lactate Level 05/12/21 09:20: Lactic Acid Level 0.74 Objective Exam Vital Signs Date Time Temp Pulse Resp B/P (MAP) Pulse Ox O2 Delivery O2 Flow Rate FiO2 05/13/21 10:03 37.4 05/13/21 08:17 38.3 80 20 135/65 (88) 97 Nasal Cannula 2.50 05/13/21 08:06 38.3 05/13/21 08:00 97 Room Air 05/13/21 04:46 36.0 80 20 134/68 (90) 96 Nasal Cannula 2.50 05/12/21 23:30 36.7 79 20 127/69 (88) 98 Nasal Cannula 2.50 05/12/21 20:20 Nasal Cannula 2.50 05/12/21 19:48 35.8 85 20 125/73 (90) 92 Nasal Cannula 2.50 05/12/21 16:00 36.5 84 18 135/77 (96) 97 Nasal Cannula 2.50 05/12/21 11:25 35.9 91 22 115/72 (86) 96 Nasal Cannula 2.50 I & O 05/13/21 07:00 Intake Total 4110 ml Output Total 2725 ml Balance 1385 ml Capillary Refill : Less Than 3 Seconds General Appearance: No Apparent Distress, Chronically ill, Obese HEENT: PERRL/EOMI, Moist Mucous Membranes Respiratory: Lungs Clear, No Accessory Muscle Use, No Respiratory Distress Cardiovascular: Regular Rate, Rhythm, No Murmur Gastrointestinal: soft, distended, tenderness, hernia (multiple ventral hernia) Neurologic/Psychiatric: Alert, Oriented x3, Depressed Affect Results Lab Laboratory Tests 05/13/21 06:15: White Blood Count 6.6, Red Blood Count 4.18, Hemoglobin 12.7, Hematocrit 40, Mean Corpuscular Volume 96, Mean Corpuscular Hemoglobin 30, Mean Corpuscular Hemoglobin Concent 32, Red Cell Distribution Width 13.7, Platelet Count 137, Mean Platelet Volume 9.1, Immature Granulocyte % (Auto) 1, Neutrophils (%) (Auto) 66, Lymphocytes (%) (Auto) 21, Monocytes (%) (Auto) 11, Eosinophils (%) (Auto) 1, Basophils (%) (Auto) 1, Neutrophils # (Auto) 4.4, Lymphocytes # (Auto) 1.4, Monocytes # (Auto) 0.7, Eosinophils # (Auto) 0.1, Basophils # (Auto) 0.0, Immature Granulocyte # (Auto) 0.0, Sodium Level 136, Potassium Level 3.9, Chloride Level 102, Carbon Dioxide Level 25, Anion Gap 9, Blood Urea Nitrogen 6L , Creatinine 0.63, Estimat Glomerular Filtration Rate > 60, BUN/Creatinine Ratio 10, Glucose Level 147H, Calcium Level 7.9L, Corrected Calcium 8.9, Total Bilirubin 0.4, Aspartate Amino Transf (AST/SGOT) 13, Alanine Aminotransferase (ALT/SGPT) 16, Alkaline Phosphatase 88, Total Protein 5.9L, Albumin 2.8L Microbiology 05/11/21 Urine Culture - Preliminary, Resulted Proteus species Mixed Bacterial Norma Assessment/Plan Assessment/Plan Assessment/Plan PSBO - resolved Multiple Incarcerated Ventral/Incisional hernias Super Morbid Obesity DM II UTI Pt tolerating clear liquids with minimal return of bowel function. She can go home and switch to PO pain meds or none. She is unfortunately not a candidate for hernia repair because of her BMI, DM and hx of previous attempted repair. She will only get surgery if there is an obstruction or compromised bowel. JOSEF CARMONA DO May 13, 2021 11:04
[2021-05-13] MEDS ORDERED: OXC5T PO (11:15)
--- NOTE | 2021-05-13 11:16 | Discharge Summary ---
Discharge Summary Hospital Course Was the Problem List Reviewed?: Yes Problems/Dx: (1) Small bowel obstruction Status: Acute (2) Illicit drug use Status: Acute (3) Methamphetamine use Status: Acute Hospital Course Date of Admission: May 10, 2021 at 22:13 Admission Diagnosis : Family Physician/Provider: Salbador/Marika,[facility] Date of Discharge: 05/13/21 Discharge Diagnosis: SBO, super morbid obesity, ventral hernias not a surgical candidate Hospital Course: Hospital course: Pt had a short hospital course for small bowel obstruction due to super-morbid obesity with ventral hernias. She was placed NPO status, Dr. Crenshaw managed her conservatively. Supportive care with IV fluids initiated with pain medication resulted in return of bowel function with bowel movement and she was discharged in improved condition but poor prognosis considering how severely obese she is, the ventral hernias and the recurrent bowel obstructions. Labs and Pending Lab Test: Laboratory Tests 05/13/21 06:15: White Blood Count 6.6, Red Blood Count 4.18, Hemoglobin 12.7, Hematocrit 40, Mean Corpuscular Volume 96, Mean Corpuscular Hemoglobin 30, Mean Corpuscular Hemoglobin Concent 32, Red Cell Distribution Width 13.7, Platelet Count 137, Mean Platelet Volume 9.1, Immature Granulocyte % (Auto) 1, Neutrophils (%) (Auto) 66, Lymphocytes (%) (Auto) 21, Monocytes (%) (Auto) 11, Eosinophils (%) (Auto) 1, Basophils (%) (Auto) 1, Neutrophils # (Auto) 4.4, Lymphocytes # (Auto) 1.4, Monocytes # (Auto) 0.7, Eosinophils # (Auto) 0.1, Basophils # (Auto) 0.0, Immature Granulocyte # (Auto) 0.0, Sodium Level 136, Potassium Level 3.9, Chloride Level 102, Carbon Dioxide Level 25, Anion Gap 9, Blood Urea Nitrogen 6L , Creatinine 0.63, Estimat Glomerular Filtration Rate > 60, BUN/Creatinine Ratio 10, Glucose Level 147H, Calcium Level 7.9L, Corrected Calcium 8.9, Total Bilirubin 0.4, Aspartate Amino Transf (AST/SGOT) 13, Alanine Aminotransferase (ALT/SGPT) 16, Alkaline Phosphatase 88, Total Protein 5.9L, Albumin 2.8L Microbiology 05/11/21 Urine Culture - Preliminary, Resulted Proteus species Mixed Bacterial Norma Home Meds Active Reported Klor-Con M20 (Potassium Chloride) 20 Meq Tab.er.prt 20 Meq PO BID Stool Softener (Docusate Sodium) 100 Mg Tablet 100-200 Mg PO BID PRN Flonase Allergy Relief (Fluticasone Propionate) 9.9 Ml Knifley.susp 1 Knifley NSEACH BID PRN Sumatriptan Succinate 50 Mg Tablet 50 Mg PO UD PRN TAKE 1 TAB AT SYMPTOM ONSET AND MAY TAKE ANOTHER DOSE AFTER 2 HOURS IF SYMPTOMS ARE NOT RELIEVED Fluticasone-Salmeterol 250-50 (Fluticasone Propion/Salmeterol) 1 Each Blst.w.dev 1 Puff INH BID PRN Ssd (Silver Sulfadiazine) 25 Gm Cream..g. 1 Applic TOP BID PRN Vitamin D2 (Ergocalciferol (Vitamin D2)) 1,250 Mcg Capsule 1,250 Mcg PO FRI Metformin HCl 1,000 Mg Tablet 1,000 Mg PO BID Atorvastatin Calcium 40 Mg Tablet 40 Mg PO DAILY Eliquis (Apixaban) 5 Mg Tablet 5 Mg PO BID Sertraline HCl 100 Mg Tablet 100 Mg PO DAILY Pantoprazole Sodium 20 Mg Tablet.dr 20 Mg PO DAILY Metoprolol Succinate 25 Mg Tab.er.24h 25 Mg PO DAILY Hydroxyzine Pamoate 25 Mg Capsule 25 Mg PO HS PRN Albuterol Sulfate 2.5 Mg/3 Ml Vial.neb 2.5 Mg NEB Q4H PRN Furosemide 40 Mg Tablet 40 Mg PO BID Assessment/Pt Instructions PCP in 1 week Discharge Planning: <30 minutes discharge planning Discharge Instructions Discharge Diet: No Restrictions Discharge Physical Examination Vital Signs Vital Signs Date Time Temp Pulse Resp B/P (MAP) Pulse Ox O2 Delivery O2 Flow Rate FiO2 05/13/21 10:03 37.4 05/13/21 08:17 80 20 135/65 (88) 97 Nasal Cannula 2.50 General Appearance: No Apparent Distress, WD/WN Allergies: Coded Allergies: latex (Verified Allergy, Intermediate, RASH, ITCHING, 03/02/11) vancomycin (Verified Allergy, Intermediate, HIVES, 03/02/11) iodine (Verified Allergy, Mild, "ILL", 03/02/11) lorazepam (Verified Allergy, Unknown, 07/12/17) phenobarbital (Verified Allergy, Unknown, 03/09/06) phenytoin (Verified Allergy, Unknown, 07/12/17) Discharge Summary Date of Admission May 10, 2021 at 22:13 Date of Discharge Discharge Date: May 13, 2021 Admission Diagnosis Assessment: Small bowel obstruction Super morbid obesity BMI 70.8 Methamphetamine use Diabetes Depression Anticoagulation Plan: Dr. Crenshaw consult appreciated NG tube Home meds Discharge Diagnosis Assessment: Small bowel obstruction Super morbid obesity BMI 70.8 Methamphetamine use Diabetes Depression Anticoagulation Plan: Dr. Crenshaw consult appreciated NG tube Home meds 05/12/2021: Monitor closely Advance diet Sepsis work-up VALERI ARROYO DO May 13, 2021 11:16
--- NOTE | 2021-05-13 11:26 | Occupational Ther Daily Note ---
OT Current Status-Daily Note Subjective Pt. reports pain with movement and positioning during miles transfer. Therapy re-adjusted pt. and she reports comfort. Mental Status/Objective Patient Orientation: Person, Place, Time, Situation ADL-Treatment Therapy Code Descriptions/Definitions Functional [place] Measure: 0=Not Assessed/NA 4=Minimal Assistance 1=Total Assistance 5=Supervision or Setup 2=Maximal Assistance 6=Modified [place] 3=Moderate Assistance 7=Complete IndependenceSCALE: Activities may be completed with or without assistive devices. 4-Hnzwosgkmh-rtpkcyv completes the activity by him/herself with no assistance from a helper. 5-Set-up or Clean-up Assistance-helper sets up or cleans up; patient completes activity. [place] assists only prior to or following the activity. 4-Supervision or Touching Assistance-helper provides verbal cues and/or touching/steadying and/or contact guard assistance as patient completes activity. Assistance may be provided throughout the activity or intermittently. 3-Partial/Moderate Assistance-helper does LESS THAN HALF the effort. Mell[place] lifts, holds or supports trunk or limbs, but provides less than half the effort. 2-Substantial/Maximal Assistance-helper does MORE THAN HALF the effort. Mell[place] lifts or holds trunk or limbs and provides more than half the effort. 7-Vyupghcwv-cfgltl does ALL the effort. Patient does none of the effort to complete the activity. Or, the assistance of 2 or more helpers is required for the patient to complete the activity. If activity was not attempted, code reason: 7-Patient Refused. 9-Not Applicable-not attempted and the patient did not perform the activity before the current illness, exacerbation or injury. 10-Not Attempted due to Environmental Limitations-(lack of equipment, weather restraints, etc.). 88-Not Attempted due to Medical Conditions or Safety Concerns. Toileting Hygiene (QC): 1 (Therapy cleansed rear ravindra area prior to transfer with miles lift.) Pt. in bed. She states she would like to get up to chair. Pt. has been dependent with miles transfers with over a year per her report. PT and OT completed treatment together for safety. Prior to transfer, pt. given theraband and hand therapy sponge to work on UE strengthening. Pt. verbalizes understanding of all exercises and states that she knows how to do them, as she has done them before. States that she will do them on her own. Pt. assists with rolling side to side in bed, but due to size, requires max assist. Dependent assist for rear ravindra care. Miles sling placed and pt. was transferred to chair in room. Nursing aware. PT to assist with transfer back at later time. At this time, no further skilled OT warranted as pt. is a dependent miles transfer, and has been a dependent miles transfer. She has horse race timer caregiving assistance for all ADL needs for bathing/dressing/toileting. Pt. currently at baseline and no skilled OT training to be achieved. Education OT Patient Education: Correct positioning, Modified ADL techniques, Progress toward Goal/Update tx plan, Purpose of tx/functional activities, Reviewed precautions, Rehab process, Transfer techniques Teaching Recipient: Patient Teaching Methods: Demonstration, Discussion Response to Teaching: Verbalize Understanding, Return Demonstration, Reinforcement Needed OT Vp Software Goals Group Home Goals Time Frame: May 19, 2021 Eating (QC): 6 Oral Hygiene (QC): 5 Additional Goals: 3-ImproveStrength/Raquel 1=Demonstrate adherence to instructed precautions during ADL tasks. 2=Patient will verbalize/demonstrate understanding of assistive devices/modifications for ADL. 3=Patient will improve strength/tolerance for activity to enable patient to perform ADL's. OT Education/Plan Problem List/Assessment Assessment: Decreased Activ Tolerance, Decreased UE Strength, Dependent Transfers, Impaired Bed Mobility, Impaired Funct Balance, Impaired I ADL's, Impaired Self-Care Skills Discharge Recommendations Plan/Recommendations: Continue POC Therapy Discharge Recommendati: 24 Hour Supervision Treatment Plan/Plan of Care Treatment,Training & Education: Yes Plan of Care: OTHER (Discharge from OT services) Treatment Duration: May 19, 2021 Frequency: 1 time per week Estimated Hrs Per Day: Other Agreement: Yes Rehab Potential: Guarded Time/GCodes Start Time: 10:10 Stop Time: 10:31 Total Time Billed (hr/min): 21 Billed Treatment Time 1, STEPHANIE LUCERO OT May 13, 2021 11:26
--- NOTE | 2021-05-13 11:53 | Physical Therapy Progress Note ---
Therapy Progress Note Miles transfer patient back to bed per nursing request. Patient has an abrasion behind her left knee, sling was placed as to not be on that abrasion. Miles transfer performed with assist of 2. Patient is at her normal functional mobility level, she uses a miles for transfers at home. Patient will be discharged from PT at this time. DOUGLAS AVILES PT May 13, 2021 11:53
[2021-05-13 12:31] VITALS: BP 105/62
[2021-05-13 13:22] VITALS: BP 105/62
[2021-05-15] MEDS ORDERED: VITAMIN D2 1.25 MG (50,000 UNITS) CAP PO SCH (09:00)
== END 2021-05-13 16:00 | disposition home or self-care (01) | DRG 394 ==
LOC: EDUNIT# 19:48 → ER 19:49 → 4TH 22:13
PROVIDERS: ADMIT Internal Medicine; ATTEND Internal Medicine
DX: K43.0 Incisional hernia with obstruction, without gangrene (principal); Z68.45 Body mass index [BMI] 70 or greater, adult; N39.0 Urinary tract infection, site not specified; J96.10 Chronic respiratory failure, unspecified whether with hypoxia or hypercapnia; E66.01 Morbid (severe) obesity due to excess calories; Z20.822 Contact with and (suspected) exposure to COVID-19; J44.9 Chronic obstructive pulmonary disease, unspecified; I48.91 Unspecified atrial fibrillation; G47.33 Obstructive sleep apnea (adult) (pediatric); I25.2 Old myocardial infarction; E78.00 Pure hypercholesterolemia, unspecified; I10 Essential (primary) hypertension; G40.909 Epilepsy, unspecified, not intractable, without status epilepticus; K21.9 Gastro-esophageal reflux disease without esophagitis; E11.9 Type 2 diabetes mellitus without complications; F41.9 Anxiety disorder, unspecified; F32.9 Major depressive disorder, single episode, unspecified; Z88.8 Allergy status to other drugs, medicaments and biological substances; Z88.1 Allergy status to other antibiotic agents; Z91.041 Radiographic dye allergy status; Z91.040 Latex allergy status; F15.90 Other stimulant use, unspecified, uncomplicated
CPT/HCPCS: 36415; 71045; 74018; 74177; 80048; 80053; 80306; 81000; 83605; 84145; 85025; 87040; 87077; 87088; 87186; 87636; 94760; 96374; 96375

== ENCOUNTER 2021-08-07 08:31 | Emergency (ER) | payer MEDICAID ==
[~2021-08-07] VITALS: Ht 165 cm; Wt 176.0 kg
[~2021-08-07 08:31] MED LIST changes: +APIX5TAB PO; +ATOR40TA70 PO; +DOCU100T7 PO; +ERGO1250 PO; +FLUT1BLS12 INH; +FLUT9.9S NSEACH; +METF-399 PO; +MTP25TSR PO; +OXC5T PO; +PANT20TA18 PO; +POTA20TA8 PO; +SERT-414 PO; +SILV25CR21 TOP; +SUMA50TA2 PO
[2021-08-07] MEDS ORDERED: PROCHLORPERAZINE 10 MG/2ML INJ (COMPAZINE) IV ONE (09:00)
[2021-08-07] MEDS ORDERED: diphenhydrAMINE 50 MG/ML INJ (BENADRYL) IV ONE (09:00)
[2021-08-07 09:12] LABS: BASOPHILS % (AUTO) 0 % (0-10); EOSINOPHILS # (AUTO) 0.1 10^3/uL (0.0-0.3); EOSINOPHILS % (AUTO) 1 % (0-10); HEMATOCRIT 45 % (35-52); HEMOGLOBIN 14.6 g/dL (11.5-16.0); LYMPHOCYTES # (AUTO) 1.9 10^3/uL (1.0-4.0); LYMPHOCYTES % (AUTO) 23 % (12-44); MEAN CORPUSCULAR HEMOGLOBIN 31 pg (25-34); MEAN CORPUSCULAR HGB CONC 33 g/dL (32-36); MEAN CORPUSCULAR VOLUME 95 fL (80-99); MEAN PLATELET VOLUME 10.2 fL (9.0-12.2); MONOCYTES # (AUTO) 0.5 10^3/uL (0.0-1.0); MONOCYTES % (AUTO) 6 % (0-12); NEUTROPHILS # (AUTO) 5.9 10^3/uL (1.8-7.8); NEUTROPHILS % (AUTO) 69 % (42-75); PLATELET COUNT 236 10^3/uL (130-400); WHITE BLOOD COUNT 8.6 10^3/uL (4.3-11.0)
--- NOTE | 2021-08-07 09:12 | ED Neurological Problem ---
General Chief Complaint: Neurological Problems Stated Complaint: MARTINS,N/V X2-3 DAYS Nursing Triage Note: pt presents to ed with complaints of a martins x 2-3 days that has caused nausea and vomiting. Source: patient Exam Limitations: no limitations History of Present Illness Date Seen by Provider: Aug 07, 2021 Time Seen by Provider: 08:48 Initial Comments 55-year-old female with past medical history of COPD, CHF, morbid obesity, chronic migraines coming in due to a severe constant frontal headache. Started acutely 3 days ago. Did not have the slow onset that her headaches typically have. 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 Denies any fever or neck stiffness. Denies any new vision changes, weakness, numbness. Tried her typical migraine medications as morning but vomited them up and therefore came here. Denies any other associated symptoms. Allergies and Home Medications Allergies Coded Allergies: latex (Verified Allergy, Intermediate, RASH, ITCHING, 03/02/11) vancomycin (Verified Allergy, Intermediate, HIVES, 03/02/11) iodine (Verified Allergy, Mild, "ILL", 03/02/11) lorazepam (Verified Allergy, Unknown, 07/12/17) phenobarbital (Verified Allergy, Unknown, 03/09/06) phenytoin (Verified Allergy, Unknown, 07/12/17) Patient Home Medication List Home Medication List Reviewed: Yes Albuterol Sulfate (Albuterol Sulfate) 2.5 Mg/3 Ml Vial.neb, 2.5 MG NEB Q4H PRN for SHORTNESS OF BREATH, (Reported) Entered as Reported by: CHARISSA PAYAN on 07/13/17 1051 Apixaban (Eliquis) 5 Mg Tablet, 5 MG PO BID, (Reported) Entered as Reported by: RADU CASTILLO on 05/11/21 1142 Atorvastatin Calcium (Atorvastatin Calcium) 40 Mg Tablet, 40 MG PO DAILY, (Reported) Entered as Reported by: RADU CASTILLO on 05/11/21 1142 Docusate Sodium (Stool Softener) 100 Mg Tablet, 100-200 MG PO BID PRN for CONSTIPATION-1ST LINE, (Reported) Entered as Reported by: RADU CASTILLO on 05/11/21 1142 Ergocalciferol (Vitamin D2) (Vitamin D2) 1,250 Mcg Capsule, 1,250 MCG PO FRI, (Reported) Entered as Reported by: RADU CASTILLO on 05/11/21 1142 Fluticasone Propion/Salmeterol (Fluticasone-Salmeterol 250-50) 1 Each Blst.w.dev, 1 PUFF INH BID PRN for SHORTNESS OF BREATH, (Reported) Entered as Reported by: RADU CASTILLO on 05/11/21 1142 Fluticasone Propionate (Flonase Allergy Relief) 9.9 Ml [place].susp, 1 SPRAY NSEACH BID PRN for CONGESTION, (Reported) Entered as Reported by: RADU CASTILLO on 05/11/21 1142 Furosemide (Furosemide) 40 Mg Tablet, 40 MG PO BID, (Reported) Entered as Reported by: CHARISSA PAYAN on 07/13/17 1051 Hydroxyzine Pamoate (Hydroxyzine Pamoate) 25 Mg Capsule, 25 MG PO HS PRN for ANXIETY, (Reported) Entered as Reported by: CHARISSA PAYAN on 07/13/17 1053 Metformin HCl (Metformin HCl) 1,000 Mg Tablet, 1,000 MG PO BID, (Reported) Entered as Reported by: RADU CASTILLO on 05/11/21 1142 Metoprolol Succinate (Metoprolol Succinate) 25 Mg Tab.er.24h, 25 MG PO DAILY, (Reported) Entered as Reported by: RADU CASTILLO on 05/11/21 1142 Oxycodone Hcl (Oxyir Tablet) 5 Mg Tab, 5 MG PO Q8H PRN for PAIN-MODERATE (5-7) Prescribed by: VALERI ARROYO on 05/13/21 1115 Pantoprazole Sodium (Pantoprazole Sodium) 20 Mg Tablet.dr, 20 MG PO DAILY, (Reported) Entered as Reported by: RADU CASTILLO on 05/11/21 1142 Potassium Chloride (Klor-Con M20) 20 Meq Tab.er.prt, 20 MEQ PO BID, (Reported) Entered as Reported by: RADU CASTILLO on 05/11/21 1147 Sertraline HCl (Sertraline HCl) 100 Mg Tablet, 100 MG PO DAILY, (Reported) Entered as Reported by: RADU CASTILLO on 05/11/21 1142 Silver Sulfadiazine (Ssd) 25 Gm Cream..g., 1 APPLIC TOP BID PRN for SKIN IRRITATION, (Reported) Entered as Reported by: RADU CASTILLO on 05/11/21 1142 Sumatriptan Succinate (Sumatriptan Succinate) 50 Mg Tablet, 50 MG PO UD PRN for MIGRAINE, (Reported) Entered as Reported by: RADU CASTILLO on 05/11/21 1142 Review of Systems Review of Systems Constitutional: No chills Eyes: No Symptoms Reported, Photophobia Ears, Nose, Mouth, Throat: no symptoms reported Respiratory: No cough Cardiovascular: No chest pain Gastrointestinal: No abdominal pain; vomiting Genitourinary: No dysuria : No Musculoskeletal: No back pain Skin: No rash Psychiatric/Neurological: Denies Anxiety Endocrine: No Symptoms Reported Hematologic/Lymphatic: No Symptoms Reported All Other Systems Reviewed Negative Unless Noted: Yes Past Utmqqaa-Lkbqyt-Isenwh Hx Patient Social History Tobacco Use?: No Smoking Status: Former Smoker Use of E-Cig and/or Vaping Kurtis: Current Everyday User Substance use?: No Alcohol Use?: Yes Alcohol Frequency: Once in a while Pt feels they are or have been: No Past Medical History Surgery/Hospitalization HX: sx: c-sec, hernia repair, cardiac ablation pmh: afib, dm, high chol, htn, sleep apnea, copd, gerd, Surgeries: Yes (LAPAROTOMY, C-SECTIONS, HERNIA REPAIR, CARDIAC ABLATION;) Abdominal, Appendectomy, Cardiac Respiratory: Yes (CHRONIC RESPIRATORY FAILURE) Sleep Apnea, COPD Cardiac: Yes Atrial Fibrillation, Chronic Edema/Swelling, Heart Attack, High Cholesterol, Hypertension Neurological: Yes Seizure Disorder Reproductive Disorders: Yes Female Reproductive Disorders: Ovarian Cyst Genitourinary: No Gastrointestinal: Yes (VENTRAL HERNIA) Abdominal Hernia, Gastroesophageal Reflux Musculoskeletal: Yes (NON-MOBILE/BED BOUND DUE TO MORBID OBESITY) Endocrine: Yes (MORBID OBESITY) Diabetes, Non-Insulin dep HEENT: No Cancer: No Psychosocial: Yes Anxiety, Depression Integumentary: No Blood Disorders: No Family Medical History Alzheimer's disease 19 MOTHER Arthritis 19 MOTHER Asthma 19 FATHER 19 MOTHER Colon cancer 19 MOTHER Completed stroke 19 FATHER 19 MOTHER Deafness or hearing loss Dementia 19 MOTHER Diabetes mellitus 19 FATHER Glaucoma 19 FATHER 19 MOTHER Hypertension 19 FATHER 19 MOTHER Myocardial infarction 19 FATHER 19 MOTHER Respiratory disorder 19 MOTHER Cancer, Diabetes SOCIAL HISTORY: -ETOH--RARE USE -DRUGS--THC, COCAINE (SNORTS IT), METHAMPHETAMINE (SNORTS IT)--ON 03/02/21 CLAIMS "NO DRUGS FOR 13 YEARS" BUT TESTED + FOR METHAPMPHETAMINES -SMOKES 3 PPD, NOW "VAPES" PAST SURGICAL HISTORY: -EXPLORATORY LAPAROTOMY FOR OVARIAN CYST -MULTIPLE HERNIA REPAIRS--5 OR 6 SURGERIES - X 2 -CARDIAC ABLATION FOR ATRIAL FIBRILLATION PT IS NON-MOBILE AND BED-BOUND AND REQUIRES A GILBERTO LIFT FOR TRANSFERS TO WHEELCHAIR PT REQUIRES 2 --24 HOUR CAREGIVERS WITH HER AT ALL TIMES. Physical Exam Vital Signs Vital Signs - First Documented 08/07/21 08:49 Temp 35.8 Pulse 88 Resp 18 B/P (MAP) 135/75 (95) Pulse Ox 92 Capillary Refill : Less Than 3 Seconds Height, Weight, BMI Height: 5'4.00" Weight: 396lbs. 0.0oz. 179.724395eo; 64.00 BMI Method:Estimated General Appearance: WD/WN, no apparent distress HEENT: PERRL/EOMI, normal ENT inspection, pharynx normal Neck: non-tender, full range of motion, supple, normal inspection, other (No meningismus) Respiratory: chest non-tender, lungs clear, normal breath sounds, no respiratory distress Cardiovascular: regular rate, rhythm, no murmur Gastrointestinal: normal bowel sounds, non tender, soft; No guarding Back: normal inspection, no CVA tenderness, no vertebral tenderness Neurologic/Psychiatric: social welfare clerk II-XII nml as tested, no motor/sensory deficits, alert, normal mood/affect, oriented x 3 Crainal Nerves: normal hearing, normal speech, PERRL Coordination/Gait: normal finger to nose Motor/Sensory: no motor deficit, no sensory deficit, no pronator drift Skin: normal color, warm/dry Lymphatic: no adenopathy Progress/Results/Core Measures Results/Orders Lab Results Laboratory Tests Test 08/07/21 09:00 Range/Units White Blood Count 8.6 4.3-11.0 10^3/uL Red Blood Count 4.72 3.80-5.11 10^6/uL Hemoglobin 14.6 11.5-16.0 g/dL Hematocrit 45 35-52 % Mean Corpuscular Volume 95 80-99 fL Mean Corpuscular Hemoglobin 31 25-34 pg Mean Corpuscular Hemoglobin Concent 33 32-36 g/dL Red Cell Distribution Width 13.6 10.0-14.5 % Platelet Count 236 130-400 10^3/uL Mean Platelet Volume 10.2 9.0-12.2 fL Immature Granulocyte % (Auto) 0 % Neutrophils (%) (Auto) 69 42-75 % Lymphocytes (%) (Auto) 23 12-44 % Monocytes (%) (Auto) 6 0-12 % Eosinophils (%) (Auto) 1 0-10 % Basophils (%) (Auto) 0 0-10 % Neutrophils # (Auto) 5.9 1.8-7.8 10^3/uL Lymphocytes # (Auto) 1.9 1.0-4.0 10^3/uL Monocytes # (Auto) 0.5 0.0-1.0 10^3/uL Eosinophils # (Auto) 0.1 0.0-0.3 10^3/uL Basophils # (Auto) 0.0 0.0-0.1 10^3/uL Immature Granulocyte # (Auto) 0.0 0.0-0.1 10^3/uL Sodium Level 137 135-145 MMOL/L Potassium Level 4.7 3.6-5.0 MMOL/L Chloride Level 101 98-107 MMOL/L Carbon Dioxide Level 26 21-32 MMOL/L Anion Gap 10 5-14 MMOL/L Blood Urea Nitrogen 9 7-18 MG/DL Creatinine 0.70 0.60-1.30 MG/DL Estimat Glomerular Filtration Rate 86 BUN/Creatinine Ratio 13 Glucose Level 211 H 70-105 MG/DL Calcium Level 9.1 8.5-10.1 MG/DL My Orders Orders - MONIKA GARRETT MD Prochlorperazine Injection (Compazine In (08/07/21 09:00) Diphenhydramine Injection (Benadryl Inje (08/07/21 09:00) Basic Metabolic Panel (08/07/21 09:00) Cbc With Automated Diff (08/07/21 09:00) Iohexol Injection (Omnipaque 350 Mg/Ml 1 (08/07/21 10:00) Received Contrast (Hold Metformin- Contr (08/07/21 10:00) Ns (Ivpb) (Sodium Chloride 0.9% Ivpb Bag (08/07/21 10:00) Ct Angio Head W Wo (08/07/21 09:02) Ketorolac Injection (Toradol Injection) (08/07/21 12:15) Acetaminophen Tablet (Tylenol Tablet) (08/07/21 12:15) Valproate Inj (Non-Formulary) (Depacon ( (08/07/21 12:15) Ketorolac Injection (Toradol Injection) (08/07/21 12:36) Medications Given in ED Current Medications Medications Dose Ordered Sig/Sy Route Start Time Stop Time Status Last Admin Dose Admin Acetaminophen 1,000 mg ONCE ONCE PO 08/07/21 12:15 08/07/21 12:16 DC 08/07/21 12:40 1,000 MG Diphenhydramine HCl 25 mg ONCE ONCE IV 08/07/21 09:00 08/07/21 09:01 DC 08/07/21 09:46 25 MG Iohexol 100 ml ONCE ONCE IV 08/07/21 10:00 08/07/21 10:01 DC 08/07/21 10:42 75 ML Ketorolac Tromethamine 30 mg STK-MED ONCE .ROUTE 08/07/21 12:36 08/07/21 12:38 DC 08/07/21 12:40 15 MG Prochlorperazine Edisylate 10 mg ONCE ONCE IV 08/07/21 09:00 08/07/21 09:01 DC 08/07/21 09:47 10 MG Sodium Chloride 100 ml ONCE ONCE IV 08/07/21 10:00 08/07/21 10:01 DC 08/07/21 10:42 80 ML Valproate Sodium 1000 mg/Dextrose 110 ml @ 110 mls/hr ONCE ONCE IV 08/07/21 12:15 08/07/21 13:14 DC 08/07/21 13:17 110 MLS/HR Vital Signs/I&O 08/07/21 08:49 Temp 35.8 Pulse 88 Resp 18 B/P (MAP) 135/75 (95) Pulse Ox 92 Blood Pressure Mean: 95 Progress Progress Note : Progress Note 55-year-old female with above history coming in due to an acute headache. ABCs were intact and vitals are stable on presentation. She is afebrile and has no meningismus. Clinically she does not have meningitis. No focal neuro deficits that would be concerning for stroke. The only thing concerning is she said the onset was extremely rapid which is unusual for her headaches. CTA head ordered to assess for subarachnoid bleed. No acute bleed on CT imaging. There is a 3 mm aneurysm. After this, the patient's caregiver arrived to with her all of the time. She has a better history and states that the patient's headache a couple days ago was more typical, slower in onset, and improved with the triptan medication. Headache came back again last night and was slower in onset again per the caregiver. Blood pressure is normal and she is neuro intact without deficits. This is more reassuring to me that we are not missing a subarachnoid hemorrhage. She was given symptomatic treatment for her typical migraines. On reassessment pain significantly improved and was essentially gone. Remains neuro intact with no changes. She did have a few episodes when she was sleeping of O2 sat going down which I believe is related to obesity hypoventilation. When she is awake and sitting up her oxygen is normal. Does not have any respiratory complaints at this time. I believe she is stable for discharge. She was sent home with strict return precautions. Diagnostic Imaging Diagonstic Imaging: CT Plain Films/CT/US/NM/MRI: head Comments [facility], [place], [place] NAME: CLEOPATRA SHERIFF [facility] REC#: [id number] PT STATUS: REG ER : 1965 PHYSICIAN: MONIKA GARRETT MD ADMIT DATE: 08/07/21/ER Draft Date of Exam:08/07/21 CT ANGIO HEAD W WO CLINICAL INDICATION: Patient with acute onset of worst headache of life. EXAMS: 1: Head CT with and without IV contrast. Auto Exposure Controls were utilized during the CT exam to meet ALARA standards for radiation dose reduction. 2: CT angiogram of the head performed with 75 cc of Omnipaque 350 IV contrast. Sagittal and coronal MIP reformations were created for better visualization of vascular anatomy. CT angiogram was post-processed using RAPID LVO detection to include quantitative measurements of cerebral blood flow and automated results notification to the stroke and/or neurointerventional team. COMPARISON: None. FINDINGS: Head CT: There is no evidence of acute cerebral infarct, intracranial hemorrhage, or gross mass effect. The brain parenchymal volume appears appropriate for patient's age. There is normal multani-white matter distinction. There is no significant midline shift or herniation. There is no evidence of hydrocephalus. The basal cisterns are unremarkable. The skull, extracranial soft tissue, and orbits are unremarkable. The paranasal sinuses are unremarkable. Temporal bones show no significant abnormality. CT angiogram of the [place]: There is a 3 mm x 3 mm saccular aneurysm arising from the right A1/A2 anterior communicating artery region, which extends superiorly, medially, and posteriorly. The neck of the aneurysm is roughly 3 mm. There is no other aneurysm or vascular abnormality seen. There is no significant stenosis, vascular malformation, or aneurysm seen. The anterior and posterior circulation is patent. The bilateral PICA, bilateral vertebral arteries, anterior circulation, and posterior circulation are otherwise patent. There is no large vessel occlusion. The visualized petrous, cavernous, and supraclinoid ICA are patent. The dural venous sinuses are patent. The extracranial soft tissues, skull, and orbits are unremarkable. Paranasal sinuses and mastoid air cells are clear. IMPRESSION: 1: There is a 3 mm saccular aneurysm arising from the right A1/A2 anterior communicating artery region directed superiorly, posteriorly, and medially. 2: The remainder of the CT angiogram of the [place] is unremarkable. The dural venous sinuses are patent. 3: Unremarkable CT scan of the brain with no CT evidence of intracranial hemorrhage. Dictated on workstation # [id number] Dict: 08/07/21 1134 Trans: 08/07/21 1156 [id number] Interpreted by: INNA HIGHTOWER MD Electronically signed by: Departure Impression Primary Impression: Headache Qualified Codes: R51.9 - Headache, unspecified Additional Impression: Brain aneurysm Disposition: 01 HOME, SELF-CARE Condition: Improved Departure-Patient Inst. Decision time for Depature: 13:41 Referrals: [facility] (PCP/Family) Primary Care Physician Patient Instructions: Headache, Adult ED, Brain Aneurysm Add. Discharge Instructions: You were seen in the emergency department for your headache. Imaging shows you to have a brain aneurysm that is 3mm which is small. I want you to follow-up with a neurosurgeon in [place] or [place]. [facility]'s number is [phone]. neurosurgery's number is [phone]. Schedule an appointment as soon as you can so they can follow this and decide if you would ever need an operation. If your headache worsens, you get new weakness or numbness on one side of your body, fever, or any concerns then please come back to the ER. All discharge instructions reviewed with patient and/or family. Voiced understanding. MONIKA GARRETT MD Aug 07, 2021 09:12
[2021-08-07 09:14] LABS: POTASSIUM 4.7 MMOL/L (3.6-5.0)
[2021-08-07 09:15] LABS: CALCIUM 9.1 MG/DL (8.5-10.1)
[2021-08-07 09:19] LABS: CREATININE SERUM 0.7 MG/DL (0.60-1.30)
[2021-08-07] MEDS ORDERED: NS 100 ML (IVPB) BAG IV ONE (10:00)
[2021-08-07] MEDS ORDERED: HOLD METFORMIN - RECEIVED CONTRAST 20 ML VIAL IV SCH (10:00)
[2021-08-07] MEDS ORDERED: IOHEXOL 350 MG/ML 100 ML (OMNIPAQUE 350) VIAL IV ONE (10:00)
--- NOTE | 2021-08-07 11:56 | Diagnostic Imaging Report ---
CLINICAL INDICATION: Patient with acute onset of worst headache of life. EXAMS: 1: Head CT with and without IV contrast. Auto Exposure Controls were utilized during the CT exam to meet ALARA standards for radiation dose reduction. 2: CT angiogram of the head performed with 75 cc of Omnipaque 350 IV contrast. Sagittal and coronal MIP reformations were created for better visualization of vascular anatomy. CT angiogram was post-processed using RAPID LVO detection to include quantitative measurements of cerebral blood flow and automated results notification to the stroke and/or neurointerventional team. COMPARISON: None. FINDINGS: Head CT: There is no evidence of acute cerebral infarct, intracranial hemorrhage, or gross mass effect. The brain parenchymal volume appears appropriate for patient's age. There is normal multani-white matter distinction. There is no significant midline shift or herniation. There is no evidence of hydrocephalus. The basal cisterns are unremarkable. The skull, extracranial soft tissue, and orbits are unremarkable. The paranasal sinuses are unremarkable. Temporal bones show no significant abnormality. CT angiogram of the [place]: There is a 3 mm x 3 mm saccular aneurysm arising from the right A1/A2 anterior communicating artery region, which extends superiorly, medially, and posteriorly. The neck of the aneurysm is roughly 3 mm. There is no other aneurysm or vascular abnormality seen. There is no significant stenosis, vascular malformation, or aneurysm seen. The anterior and posterior circulation is patent. The bilateral PICA, bilateral vertebral arteries, anterior circulation, and posterior circulation are otherwise patent. There is no large vessel occlusion. The visualized petrous, cavernous, and supraclinoid ICA are patent. The dural venous sinuses are patent. The extracranial soft tissues, skull, and orbits are unremarkable. Paranasal sinuses and mastoid air cells are clear. IMPRESSION: 1: There is a 3 mm saccular aneurysm arising from the right A1/A2 anterior communicating artery region directed superiorly, posteriorly, and medially. 2: The remainder of the CT angiogram of the [place] is unremarkable. The dural venous sinuses are patent. 3: Unremarkable CT scan of the brain with no CT evidence of intracranial hemorrhage. Dictated by: Dictated on workstation # [id number]
[2021-08-07] MEDS ORDERED: KETOROLAC 15 MG/ML VIAL IVP ONE (12:15)
[2021-08-07] MEDS ORDERED: VALPROATE INJ (NON-FORMULARY) 1,000 MG in D5W 100 ML IVPB 100 ML IV ONE (12:15)
[2021-08-07] MEDS ORDERED: ACETAMINOPHEN 500 MG TAB (TYLENOL) PO ONE (12:15)
[2021-08-07] MEDS ORDERED: KETOROLAC 30 MG/ML VIAL ONE (12:36)
[2021-08-07 14:50] VITALS: BP 105/63
== END 2021-08-07 14:50 | disposition home or self-care (01) ==
LOC: ER 08:32
DX: I67.1 Cerebral aneurysm, nonruptured (principal); G47.30 Sleep apnea, unspecified; J44.9 Chronic obstructive pulmonary disease, unspecified; I25.2 Old myocardial infarction; K21.9 Gastro-esophageal reflux disease without esophagitis; E66.01 Morbid (severe) obesity due to excess calories; I50.9 Heart failure, unspecified; I11.0 Hypertensive heart disease with heart failure; E78.00 Pure hypercholesterolemia, unspecified; I48.91 Unspecified atrial fibrillation; E11.9 Type 2 diabetes mellitus without complications; F41.9 Anxiety disorder, unspecified; F32.9 Major depressive disorder, single episode, unspecified; Z87.891 Personal history of nicotine dependence; Z68.44 Body mass index [BMI] 60.0-69.9, adult; Z79.01 Long term (current) use of anticoagulants; Z79.84 Long term (current) use of oral hypoglycemic drugs; Z79.899 Other long term (current) drug therapy
CPT/HCPCS: 36415; 70496; 80048; 85025

== ENCOUNTER 2021-08-12 15:11 | Emergency (ER) | payer MEDICAID ==
[~2021-08-12] VITALS: Ht 162 cm; Wt 175.9 kg
[2021-08-12] MEDS ORDERED: PROCHLORPERAZINE 10 MG/2ML INJ (COMPAZINE) IV STA (15:56)
[2021-08-12] MEDS ORDERED: NS IV 1000 ML 1,000 ML IV SCH (16:00)
[2021-08-12] MEDS ORDERED: diphenhydrAMINE 50 MG/ML INJ (BENADRYL) IV STA (16:00)
[2021-08-12] MEDS ORDERED: KETOROLAC 30 MG/ML VIAL IVP STA (16:00)
[2021-08-12 16:10] LABS: ALBUMIN 3.4 GM/DL (3.2-4.5); POTASSIUM 4.6 MMOL/L (3.6-5.0)
[2021-08-12 16:11] LABS: CALCIUM 9.1 MG/DL (8.5-10.1)
[2021-08-12 16:14] LABS: BILIRUBIN,TOTAL 0.4 MG/DL (0.1-1.0)
[2021-08-12 16:16] LABS: CREATININE SERUM 0.79 MG/DL (0.60-1.30)
[2021-08-12 16:17] LABS: BASOPHILS % (AUTO) 1 % (0-10); EOSINOPHILS # (AUTO) 0.2 10^3/uL (0.0-0.3); EOSINOPHILS % (AUTO) 2 % (0-10); HEMATOCRIT 46 % (35-52); HEMOGLOBIN 14.9 g/dL (11.5-16.0); LYMPHOCYTES # (AUTO) 2.5 10^3/uL (1.0-4.0); LYMPHOCYTES % (AUTO) 28 % (12-44); MEAN CORPUSCULAR HEMOGLOBIN 31 pg (25-34); MEAN CORPUSCULAR HGB CONC 32 g/dL (32-36); MEAN CORPUSCULAR VOLUME 96 fL (80-99); MEAN PLATELET VOLUME 10.9 fL (9.0-12.2); MONOCYTES # (AUTO) 0.5 10^3/uL (0.0-1.0); MONOCYTES % (AUTO) 6 % (0-12); NEUTROPHILS # (AUTO) 5.5 10^3/uL (1.8-7.8); NEUTROPHILS % (AUTO) 63 % (42-75); PLATELET COUNT 245 10^3/uL (130-400); WHITE BLOOD COUNT 8.7 10^3/uL (4.3-11.0)
--- NOTE | 2021-08-12 17:29 | ED Headache ---
General Chief Complaint: Head/Cervical Problems Stated Complaint: N/V/MARTINS Nursing Triage Note: Pt to ED via [facility] for c/o headache with associated n/v onset 2 weeks ago. States she was seen here this week for same symptoms. (CHARLES OHARA) History of Present Illness Date Seen by Provider: Aug 12, 2021 Time Seen by Provider: 15:25 Initial Comments 55-year-old morbidly obese female brought by EMS presents for headache that has been present for approximately 2 weeks. 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 She reports the headaches have been intermittent but today she has not been able to control the pain and began vomiting at 1300. She took medications this morning, but nothing in the last 4 hours for pain or nausea. Her PCP is trying to arrange neurosurgery consult in but she is bedbound due to her obesity. Patient is wearing sunglasses and has a washcloth over her eyes because of photophobia. Timing/Duration: waxing and waning Severity/Quality: moderate Location: frontal Prior Headaches/Recent Trauma: frequent headaches, chronic headaches Associated Symptoms: No confusion; facial pain; No fever/chills, No loss of consciousness; nausea/vomiting; No nasal congestion, No nasal drainage, No stiff neck; vision changes (photophobia); No weakness (CHARLES OHARA) Allergies and Home Medications Allergies Coded Allergies: latex (Verified Allergy, Intermediate, RASH, ITCHING, 03/02/11) vancomycin (Verified Allergy, Intermediate, HIVES, 03/02/11) iodine (Verified Allergy, Mild, "ILL", 03/02/11) lorazepam (Verified Allergy, Unknown, 07/12/17) phenobarbital (Verified Allergy, Unknown, 03/09/06) phenytoin (Verified Allergy, Unknown, 07/12/17) Patient Home Medication List Home Medication List Reviewed: Yes (CHARLES OHARA) Albuterol Sulfate (Albuterol Sulfate) 2.5 Mg/3 Ml Vial.neb, 2.5 MG NEB Q4H PRN for SHORTNESS OF BREATH, (Reported) Entered as Reported by: CHARISSA PAYAN on 07/13/17 1051 Apixaban (Eliquis) 5 Mg Tablet, 5 MG PO BID, (Reported) Entered as Reported by: RADU CASTILLO on 05/11/21 1142 Atorvastatin Calcium (Atorvastatin Calcium) 40 Mg Tablet, 40 MG PO DAILY, (Reported) Entered as Reported by: RADU CASTILLO on 05/11/21 1142 Docusate Sodium (Stool Softener) 100 Mg Tablet, 100-200 MG PO BID PRN for CONSTIPATION-1ST LINE, (Reported) Entered as Reported by: RADU CASTILLO on 05/11/21 114 Ergocalciferol (Vitamin D2) (Vitamin D2) 1,250 Mcg Capsule, 1,250 MCG PO FRI, (Reported) Entered as Reported by: RADU CASTILLO on 05/11/21 1142 Fluticasone Propion/Salmeterol (Fluticasone-Salmeterol 250-50) 1 Each Blst.w.dev, 1 PUFF INH BID PRN for SHORTNESS OF BREATH, (Reported) Entered as Reported by: RADU CASTILLO on 05/11/21 114 Fluticasone Propionate (Flonase Allergy Relief) 9.9 Ml [place].susp, 1 SPRAY NSEACH BID PRN for CONGESTION, (Reported) Entered as Reported by: RADU CASTILLO on 05/11/21 1142 Furosemide (Furosemide) 40 Mg Tablet, 40 MG PO BID, (Reported) Entered as Reported by: CHARISSA PAYAN on 07/13/17 1051 Hydroxyzine Pamoate (Hydroxyzine Pamoate) 25 Mg Capsule, 25 MG PO HS PRN for ANXIETY, (Reported) Entered as Reported by: CHARISSA PAYAN on 07/13/17 1053 Metformin HCl (Metformin HCl) 1,000 Mg Tablet, 1,000 MG PO BID, (Reported) Entered as Reported by: RAUD CASTILLO on 05/11/21 1142 Metoprolol Succinate (Metoprolol Succinate) 25 Mg Tab.er.24h, 25 MG PO DAILY, (Reported) Entered as Reported by: RADU CASTILLO on 05/11/21 1142 Oxycodone Hcl (Oxyir Tablet) 5 Mg Tab, 5 MG PO Q8H PRN for PAIN-MODERATE (5-7) Prescribed by: VALERI ARROYO on 05/13/21 1115 Pantoprazole Sodium (Pantoprazole Sodium) 20 Mg Tablet.dr, 20 MG PO DAILY, (Reported) Entered as Reported by: RADU CASTILLO on 05/11/21 1142 Potassium Chloride (Klor-Con M20) 20 Meq Tab.er.prt, 20 MEQ PO BID, (Reported) Entered as Reported by: RADU CASTILLO on 05/11/21 1147 Sertraline HCl (Sertraline HCl) 100 Mg Tablet, 100 MG PO DAILY, (Reported) Entered as Reported by: RADU CASTILLO on 05/11/21 1142 Silver Sulfadiazine (Ssd) 25 Gm Cream..g., 1 APPLIC TOP BID PRN for SKIN IRRITATION, (Reported) Entered as Reported by: RADU CASTILLO on 05/11/21 1142 Sumatriptan Succinate (Sumatriptan Succinate) 50 Mg Tablet, 50 MG PO UD PRN for MIGRAINE, (Reported) Entered as Reported by: RADU CASTILLO on 05/11/21 1142 Review of Systems Review of Systems Constitutional: see HPI, malaise, weakness (Chronic the patient is bedbound and requires to healthcare sitters 24 hours a day.) Eyes: See HPI, Photophobia Ears, Nose, Mouth, Throat: no symptoms reported, see HPI Respiratory: no symptoms reported, see HPI Cardiovascular: no symptoms reported, see HPI; No chest pain Gastrointestinal: see HPI, nausea, vomiting Psychiatric/Neurological: See HPI, Headache (CHARLES OHARA) All Other Systems Reviewed Negative Unless Noted: Yes (CHARLES OHARA) Past Qtdwsmp-Akmmnn-Larefc Hx Patient Social History Tobacco Use?: Yes Substance use?: No Alcohol Use?: No (CHARLES OHARA) Past Medical History Surgery/Hospitalization HX: sx: c-sec, hernia repair, cardiac ablation pmh: afib, dm, high chol, htn, sleep apnea, copd, gerd, Surgeries: Yes (LAPAROTOMY, C-SECTIONS, HERNIA REPAIR, CARDIAC ABLATION;) Abdominal, Appendectomy, Cardiac Respiratory: Yes (CHRONIC RESPIRATORY FAILURE) Sleep Apnea, COPD Cardiac: Yes Atrial Fibrillation, Chronic Edema/Swelling, Heart Attack, High Cholesterol, Hypertension Neurological: Yes Seizure Disorder Reproductive Disorders: Yes Female Reproductive Disorders: Ovarian Cyst Genitourinary: No Gastrointestinal: Yes (VENTRAL HERNIA) Abdominal Hernia, Gastroesophageal Reflux Musculoskeletal: Yes (NON-MOBILE/BED BOUND DUE TO MORBID OBESITY) Endocrine: Yes (MORBID OBESITY) Diabetes, Non-Insulin dep HEENT: No Cancer: No Psychosocial: Yes Anxiety, Depression Integumentary: No Blood Disorders: No (CHARLES OHARA) Family Medical History Reviewed Nursing Family Hx (CHARLES OHARA) Alzheimer's disease 19 MOTHER Arthritis 19 MOTHER Asthma 19 FATHER 19 MOTHER Colon cancer 19 MOTHER Completed stroke 19 FATHER 19 MOTHER Deafness or hearing loss Dementia 19 MOTHER Diabetes mellitus 19 FATHER Glaucoma 19 FATHER 19 MOTHER Hypertension 19 FATHER 19 MOTHER Myocardial infarction 19 FATHER 19 MOTHER Respiratory disorder 19 MOTHER Cancer, Diabetes SOCIAL HISTORY: -ETOH--RARE USE -DRUGS--THC, COCAINE (SNORTS IT), METHAMPHETAMINE (SNORTS IT)--ON 03/02/21 CLAIMS "NO DRUGS FOR 13 YEARS" BUT TESTED + FOR METHAPMPHETAMINES -SMOKES 3 PPD, NOW "VAPES" PAST SURGICAL HISTORY: -EXPLORATORY LAPAROTOMY FOR OVARIAN CYST -MULTIPLE HERNIA REPAIRS--5 OR 6 SURGERIES - X 2 -CARDIAC ABLATION FOR ATRIAL FIBRILLATION PT IS NON-MOBILE AND BED-BOUND AND REQUIRES A GILBERTO LIFT FOR TRANSFERS TO WHEELCHAIR PT REQUIRES 2 --24 HOUR CAREGIVERS WITH HER AT ALL TIMES. (CHARLES OHARA) Physical Exam Vital Signs Vital Signs - First Documented 08/12/21 15:25 Temp 37.0 Pulse 84 Resp 18 B/P (MAP) 128/74 (92) Pulse Ox 96 O2 Delivery Room Air (CHARLIE SU MD) Vital Signs Capillary Refill : Less Than 3 Seconds (CHARLES OHARA) Height, Weight, BMI Height: 5'4.00" Weight: 396lbs. 0.0oz. [id number]; 67.00 BMI Method:Estimated General Appearance: WD/WN, no apparent distress, obese HEENT: PERRL/EOMI, normal ENT inspection, TMs normal, pharynx normal Neck: non-tender, full range of motion, supple, normal inspection Cardiovascular: normal peripheral pulses, regular rate, rhythm Respiratory: chest non-tender, lungs clear, normal breath sounds Gastrointestinal: normal bowel sounds, non tender, soft, distended; No tenderness Extremities: non-tender, normal capillary refill, other (Limitation of motion to upper and lower extremities, chronic for patient due to body habitus) Psychiatric: alert, oriented x 3; No lethargic, No unresponsive Skin: normal color, warm/dry (CHARLES OHARA) Progress/Results/Core Measures Results/Orders Lab Results Laboratory Tests Test 08/12/21 15:23 Range/Units White Blood Count 8.7 4.3-11.0 10^3/uL Red Blood Count 4.81 3.80-5.11 10^6/uL Hemoglobin 14.9 11.5-16.0 g/dL Hematocrit 46 35-52 % Mean Corpuscular Volume 96 80-99 fL Mean Corpuscular Hemoglobin 31 25-34 pg Mean Corpuscular Hemoglobin Concent 32 32-36 g/dL Red Cell Distribution Width 14.0 10.0-14.5 % Platelet Count 245 130-400 10^3/uL Mean Platelet Volume 10.9 9.0-12.2 fL Immature Granulocyte % (Auto) 0 % Neutrophils (%) (Auto) 63 42-75 % Lymphocytes (%) (Auto) 28 12-44 % Monocytes (%) (Auto) 6 0-12 % Eosinophils (%) (Auto) 2 0-10 % Basophils (%) (Auto) 1 0-10 % Neutrophils # (Auto) 5.5 1.8-7.8 10^3/uL Lymphocytes # (Auto) 2.5 1.0-4.0 10^3/uL Monocytes # (Auto) 0.5 0.0-1.0 10^3/uL Eosinophils # (Auto) 0.2 0.0-0.3 10^3/uL Basophils # (Auto) 0.0 0.0-0.1 10^3/uL Immature Granulocyte # (Auto) 0.0 0.0-0.1 10^3/uL Sodium Level 138 135-145 MMOL/L Potassium Level 4.6 3.6-5.0 MMOL/L Chloride Level 101 98-107 MMOL/L Carbon Dioxide Level 25 21-32 MMOL/L Anion Gap 12 5-14 MMOL/L Blood Urea Nitrogen 11 7-18 MG/DL Creatinine 0.79 0.60-1.30 MG/DL Estimat Glomerular Filtration Rate 75 BUN/Creatinine Ratio 14 Glucose Level 315 H 70-105 MG/DL Calcium Level 9.1 8.5-10.1 MG/DL Corrected Calcium 9.6 8.5-10.1 MG/DL Total Bilirubin 0.4 0.1-1.0 MG/DL Aspartate Amino Transf (AST/SGOT) 18 5-34 U/L Alanine Aminotransferase (ALT/SGPT) 19 0-55 U/L Alkaline Phosphatase 108 40-136 U/L Total Protein 7.0 6.4-8.2 GM/DL Albumin 3.4 3.2-4.5 GM/DL (CHARLIE SU MD) Vital Signs/I&O 08/12/21 08/12/21 15:25 17:37 Temp 37.0 37.1 Pulse 84 77 Resp 18 18 B/P (MAP) 128/74 (92) 149/83 Pulse Ox 96 97 O2 Delivery Room Air Room Air (CHARLIE SU MD) Blood Pressure Mean: 92 Progress Progress Note : Time: 15:25 Progress Note Patient seen and evaluated. Will obtain labs, give normal saline 1 L per IV, Benadryl 50 mg IV, Compazine 10 mg IV Toradol 30 mg IV. 1630 labs essentially normal. Patient resting with eyes closed, easily arousable. Reports headache is improving. 171 discharge instructions and return precautions reviewed with the patient and her caregiver. All questions answered. (CHARLES OHARA) Departure Impression Primary Impression: Headache Qualified Codes: G44.029 - Chronic cluster headache, not intractable Additional Impressions: Morbid obesity Bedbound Disposition: 01 HOME, SELF-CARE Condition: Stable Departure-Patient Inst. Decision time for Depature: 17:20 (CHARLES OHARA) Referrals: [facility] [place] ([place]/Family) Primary Care Physician Patient Instructions: Migraines (DC), Cluster Headache (DC) Add. Discharge Instructions: Continue your home medications as prescribed. Follow-up with your primary care provider if your symptoms are not improving or worsen. Increase your hydration, 16 ounces of water every 2 hours while awake. Follow-up with your primary care provider about the referral to neurosurgery. Return to the emergency department for new, urgent healthcare needs. All discharge instructions reviewed with patient and/or family. Voiced understanding. ATTENDING PHYSICIAN NOTE: I was physically present as attending physician in the emergency department during the care of this patient, but I was not directly involved in the decision making or delivery of care for this patient. (CHARLIE SU MD) Copy Copies To 1: SEGUNDO HILLS AMY ARNP Aug 12, 2021 17:29 CHARLIE SU MD Aug 13, 2021 12:07
[2021-08-12 17:37] VITALS: BP 149/83
== END 2021-08-12 18:01 | disposition home or self-care (01) ==
LOC: EDUNIT# 15:11 → ER 15:12
DX: R51.9 Headache, unspecified (principal); G47.30 Sleep apnea, unspecified; J44.9 Chronic obstructive pulmonary disease, unspecified; I25.2 Old myocardial infarction; I10 Essential (primary) hypertension; I48.91 Unspecified atrial fibrillation; E66.01 Morbid (severe) obesity due to excess calories; K21.9 Gastro-esophageal reflux disease without esophagitis; E78.00 Pure hypercholesterolemia, unspecified; E11.9 Type 2 diabetes mellitus without complications; F41.9 Anxiety disorder, unspecified; F32.9 Major depressive disorder, single episode, unspecified; Z68.44 Body mass index [BMI] 60.0-69.9, adult; Z72.0 Tobacco use; Z74.01 Bed confinement status; Z79.01 Long term (current) use of anticoagulants; Z79.84 Long term (current) use of oral hypoglycemic drugs; Z79.899 Other long term (current) drug therapy
CPT/HCPCS: 36415; 80053; 85025

== ENCOUNTER 2021-12-03 09:54 | Emergency (ER) | payer MEDICAID ==
[~2021-12-03] VITALS: Ht 162 cm; Wt 190.0 kg
[~2021-12-03 09:54] MED LIST changes: +POTA-169 PO; -POTA20TA8 PO
[2021-12-03] MEDS ORDERED: ONDANSETRON 4 MG/2 ML (SDV) Z0FRAN IV PRN (10:15)
[2021-12-03] MEDS ORDERED: NS IV 1000 ML 1,000 ML IV ONE (10:15)
[2021-12-03] MEDS ORDERED: NS IV 1000 ML 1,000 ML IV SCH (10:15)
[2021-12-03] MEDS ORDERED: fentaNYL INJ 100 MCG/2 ML AMP ONE (10:18)
--- NOTE | 2021-12-03 10:21 | ED Abdominal Pain ---
General Stated Complaint: ABD PAIN Source of Information: Patient Exam Limitations: No Limitations History of Present Illness Date Seen by Provider: Dec 03, 2021 Time Seen by Provider: 10:00 Initial Comments Patient to ER by EMS from [facility] with chief complaint that last night sometime in the night she was rolling over and felt a pinching tearing twisting pain in her left abdominal wall. She has a history of abdominal hernias. She has not had a bowel movement since yesterday. She is not passing gas. She has nausea. She tried to drink little water this morning and immediately vomited it up. She has had her appendix out but still has her gallbladder. Pains on the left side of her abdominal wall and rates it as a 10 out of 10. No fevers or chills. Worse with movement. She is wheelchair-bound. She is on Eliquis for her atrial fibrillation status post ablation. 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 She follows with Tab at [facility] for primary care. Allergies and Home Medications Allergies Coded Allergies: latex (Verified Allergy, Intermediate, RASH, ITCHING, 03/02/11) vancomycin (Verified Allergy, Intermediate, HIVES, 03/02/11) iodine (Verified Allergy, Mild, "ILL", 03/02/11) lorazepam (Verified Allergy, Unknown, 07/12/17) phenobarbital (Verified Allergy, Unknown, 03/09/06) phenytoin (Verified Allergy, Unknown, 07/12/17) Patient Home Medication List Home Medication List Reviewed: Yes Albuterol Sulfate (Albuterol Sulfate) 2.5 Mg/3 Ml Vial.neb, 2.5 MG NEB Q4H PRN for SHORTNESS OF BREATH, (Reported) Entered as Reported by: CHARISSA PAYAN on 07/13/17 1051 Apixaban (Eliquis) 5 Mg Tablet, 5 MG PO BID, (Reported) Entered as Reported by: RADU CASTILLO on 05/11/21 1142 Atorvastatin Calcium (Atorvastatin Calcium) 40 Mg Tablet, 40 MG PO DAILY, (Reported) Entered as Reported by: RADU CASTILLO on 05/11/21 1142 Docusate Sodium (Stool Softener) 100 Mg Tablet, 100-200 MG PO BID PRN for CONSTIPATION-1ST LINE, (Reported) Entered as Reported by: RADU CASTILLO on 05/11/21 1142 Ergocalciferol (Vitamin D2) (Vitamin D2) 1,250 Mcg Capsule, 1,250 MCG PO FRI, (Reported) Entered as Reported by: RADU CASTILLO on 05/11/21 1142 Fluticasone Propion/Salmeterol (Fluticasone-Salmeterol 250-50) 1 Each Blst.w.dev, 1 PUFF INH BID PRN for SHORTNESS OF BREATH, (Reported) Entered as Reported by: RADU CASTILLO on 05/11/21 1142 Fluticasone Propionate (Flonase Allergy Relief) 9.9 Ml Hines.susp, 1 SPRAY NSEACH BID PRN for CONGESTION, (Reported) Entered as Reported by: RADU CASTILLO on 05/11/21 1142 Furosemide (Furosemide) 40 Mg Tablet, 40 MG PO BID, (Reported) Entered as Reported by: CHARISSA PAYAN on 07/13/17 1051 Hydroxyzine Pamoate (Hydroxyzine Pamoate) 25 Mg Capsule, 25 MG PO HS PRN for ANXIETY, (Reported) Entered as Reported by: CHARISSA PAYAN on 07/13/17 1053 Metformin HCl (Metformin HCl) 1,000 Mg Tablet, 1,000 MG PO BID, (Reported) Entered as Reported by: RADU CASTILLO on 05/11/21 1142 Metoprolol Succinate (Metoprolol Succinate) 25 Mg Tab.er.24h, 25 MG PO DAILY, (Reported) Entered as Reported by: RADU CASTILLO on 05/11/21 1142 Oxycodone Hcl (Oxyir Tablet) 5 Mg Tab, 5 MG PO Q8H PRN for PAIN-MODERATE (5-7) Prescribed by: VALERI ARROYO on 05/13/21 1115 Pantoprazole Sodium (Pantoprazole Sodium) 20 Mg Tablet.dr, 20 MG PO DAILY, (Reported) Entered as Reported by: RADU CASTILLO on 05/11/21 1142 Potassium Chloride (Klor-Con M20) 20 Meq Tab.er.prt, 20 MEQ PO BID, (Reported) Entered as Reported by: RADU CASTILLO on 05/11/21 1147 Sertraline HCl (Sertraline HCl) 100 Mg Tablet, 100 MG PO DAILY, (Reported) Entered as Reported by: RADU CASTILLO on 05/11/21 1142 Silver Sulfadiazine (Ssd) 25 Gm Cream..g., 1 APPLIC TOP BID PRN for SKIN IRRITATION, (Reported) Entered as Reported by: RADU CASTILLO on 05/11/21 1142 Sumatriptan Succinate (Sumatriptan Succinate) 50 Mg Tablet, 50 MG PO UD PRN for MIGRAINE, (Reported) Entered as Reported by: RADU CASTILLO on 05/11/21 1142 Review of Systems Review of Systems Constitutional: No chills, No diaphoresis EENTM: No Blurred Vision, No Double Vision Respiratory: Denies Cough, Denies Shortness of Air Cardiovascular: Denies Chest Pain, Denies Lightheadedness Gastrointestinal: Denies Abdomen Distended; Abdominal Pain; Denies Constipated, Denies Diarrhea, Denies Nausea Genitourinary: Denies Discharge, Denies Drainage Musculoskeletal: No back pain, No joint pain All Other Systems Reviewed Negative Unless Noted: Yes Past Mitayxa-Wmwqsi-Gtqkde Hx Patient Social History Tobacco Use?: No Use of E-Cig and/or Vaping dev: No Substance use?: No Past Medical History Surgery/Hospitalization HX: sx: c-sec, hernia repair, cardiac ablation pmh: afib, dm, high chol, htn, sleep apnea, copd, gerd, Surgeries: Yes (LAPAROTOMY, C-SECTIONS, HERNIA REPAIR, CARDIAC ABLATION;) Abdominal, Appendectomy, Cardiac Respiratory: Yes (CHRONIC RESPIRATORY FAILURE) Sleep Apnea, COPD Cardiac: Yes Atrial Fibrillation, Chronic Edema/Swelling, Heart Attack, High Cholesterol, Hypertension Neurological: Yes Seizure Disorder Reproductive Disorders: Yes Female Reproductive Disorders: Ovarian Cyst Genitourinary: No Gastrointestinal: Yes (VENTRAL HERNIA) Abdominal Hernia, Gastroesophageal Reflux Musculoskeletal: Yes (NON-MOBILE/BED BOUND DUE TO MORBID OBESITY) Endocrine: Yes (MORBID OBESITY) Diabetes, Non-Insulin dep HEENT: No Cancer: No Psychosocial: Yes Anxiety, Depression Integumentary: No Blood Disorders: No Family Medical History Alzheimer's disease 19 MOTHER Arthritis 19 MOTHER Asthma 19 FATHER 19 MOTHER Colon cancer 19 MOTHER Completed stroke 19 FATHER 19 MOTHER Deafness or hearing loss Dementia 19 MOTHER Diabetes mellitus 19 FATHER Glaucoma 19 FATHER 19 MOTHER Hypertension 19 FATHER 19 MOTHER Myocardial infarction 19 FATHER 19 MOTHER Respiratory disorder 19 MOTHER Cancer, Diabetes SOCIAL HISTORY: -ETOH--RARE USE -DRUGS--THC, COCAINE (SNORTS IT), METHAMPHETAMINE (SNORTS IT)--ON 03/02/21 CLAIMS "NO DRUGS FOR 13 YEARS" BUT TESTED + FOR METHAPMPHETAMINES -SMOKES 3 PPD, NOW "VAPES" PAST SURGICAL HISTORY: -EXPLORATORY LAPAROTOMY FOR OVARIAN CYST -MULTIPLE HERNIA REPAIRS--5 OR 6 SURGERIES - X 2 -CARDIAC ABLATION FOR ATRIAL FIBRILLATION PT IS NON-MOBILE AND BED-BOUND AND REQUIRES A GILBERTO LIFT FOR TRANSFERS TO WHEELCHAIR PT REQUIRES 2 --24 HOUR CAREGIVERS WITH HER AT ALL TIMES. Physical Exam Vital Signs Vital Signs - First Documented 12/03/21 10:00 Temp 36.2 Pulse 93 Resp 20 B/P (MAP) 142/91 (108) Pulse Ox 95 Capillary Refill : Height/Weight/BMI Height: 5'4.00" Weight: 396lbs. 0.0oz. 179.726332um; 67.00 BMI Method:Estimated General Appearance: moderate distress, obese (Super morbid obesity) HEENT: PERRL/EOMI, normal ENT inspection, pharynx normal Neck: full range of motion, supple, normal inspection Respiratory: lungs clear, normal breath sounds, no respiratory distress, no accessory muscle use Cardiovascular: normal peripheral pulses, regular rate, rhythm Peripheral Pulses: 2+ Radial Pulses (R), 2+ Radial Pulses (L) Gastrointestinal: abnormal bowel sounds (Quiescent), guarding, tenderness (Left abdominal wall hernia tender to palpation without erythema or discoloration. Approximately 10 cm diameter.) Extremities: normal range of motion, non-tender, normal inspection, normal capillary refill Neurologic/Psychiatric: alert, normal mood/affect, oriented x 3 Skin: normal color, warm/dry Focused Exam Sepsis Stage: Ruled Out Reason for ruling out sepsis: Heart rate in the 90s but no other SIRS criteria. Lactate Level 12/03/21 10:20: Lactic Acid Level 1.16 Lactic Acid Level Laboratory Tests Test 12/03/21 10:20 Lactic Acid Level 1.16 MMOL/L (0.50-2.00) Progress/Results/Core Measures Results/Orders Lab Results Laboratory Tests Test 12/03/21 10:20 12/03/21 11:10 Range/Units White Blood Count 11.2 H 4.3-11.0 10^3/uL Red Blood Count 4.87 3.80-5.11 10^6/uL Hemoglobin 14.5 11.5-16.0 g/dL Hematocrit 45 35-52 % Mean Corpuscular Volume 92 80-99 fL Mean Corpuscular Hemoglobin 30 25-34 pg Mean Corpuscular Hemoglobin Concent 32 32-36 g/dL Red Cell Distribution Width 13.5 10.0-14.5 % Platelet Count 195 130-400 10^3/uL Mean Platelet Volume 9.6 9.0-12.2 fL Immature Granulocyte % (Auto) 1 % Neutrophils (%) (Auto) 80 H 42-75 % Lymphocytes (%) (Auto) 12 12-44 % Monocytes (%) (Auto) 7 0-12 % Eosinophils (%) (Auto) 1 0-10 % Basophils (%) (Auto) 0 0-10 % Neutrophils # (Auto) 8.9 H 1.8-7.8 10^3/uL Lymphocytes # (Auto) 1.3 1.0-4.0 10^3/uL Monocytes # (Auto) 0.7 0.0-1.0 10^3/uL Eosinophils # (Auto) 0.1 0.0-0.3 10^3/uL Basophils # (Auto) 0.0 0.0-0.1 10^3/uL Immature Granulocyte # (Auto) 0.1 0.0-0.1 10^3/uL Prothrombin Time 13.6 12.2-14.7 SEC INR Comment 1.0 0.8-1.4 Activated Partial Thromboplast Time 29 24-35 SEC Sodium Level 134 L 135-145 MMOL/L Potassium Level 3.9 3.6-5.0 MMOL/L Chloride Level 98 98-107 MMOL/L Carbon Dioxide Level 24 21-32 MMOL/L Anion Gap 12 5-14 MMOL/L Blood Urea Nitrogen 6 L 7-18 MG/DL Creatinine 0.89 0.60-1.30 MG/DL Estimat Glomerular Filtration Rate 75 BUN/Creatinine Ratio 7 Glucose Level 248 H 70-105 MG/DL Lactic Acid Level 1.16 0.50-2.00 MMOL/L Calcium Level 8.8 8.5-10.1 MG/DL Corrected Calcium 9.2 8.5-10.1 MG/DL Total Bilirubin 0.9 0.1-1.0 MG/DL Aspartate Amino Transf (AST/SGOT) 17 5-34 U/L Alanine Aminotransferase (ALT/SGPT) 18 0-55 U/L Alkaline Phosphatase 117 40-136 U/L C-Reactive Protein High Sensitivity 12.15 H 0.00-0.50 MG/DL Total Protein 7.1 6.4-8.2 GM/DL Albumin 3.5 3.2-4.5 GM/DL Lipase 16 8-78 U/L Urine Color YELLOW Urine Clarity CLOUDY Urine pH 6.0 5-9 Urine Specific Enola >=1.030 1.016-1.022 Urine Protein 2+ H NEGATIVE Urine Glucose (UA) 3+ H NEGATIVE Urine Ketones 1+ H NEGATIVE Urine Nitrite NEGATIVE NEGATIVE Urine Bilirubin NEGATIVE NEGATIVE Urine Urobilinogen 1.0 < = 1.0 MG/DL Urine Leukocyte Esterase TRACE H NEGATIVE Urine RBC (Auto) 2+ H NEGATIVE Urine RBC 5-10 H /HPF Urine WBC >100 H /HPF Urine Crystals NONE /LPF Urine Bacteria TRACE /HPF Urine Casts NONE /LPF Urine Mucus NEGATIVE /LPF Urine Culture Indicated CULTURE PENDING My Orders Orders - WOOD ORTIZ Ct Abdomen/Pelvis W (12/03/21 10:09) Ed Iv/Invasive Line Start (12/03/21 10:09) Ns Iv 1000 Ml (Sodium Chloride 0.9%) (12/03/21 10:15) Cbc With Automated Diff (12/03/21 10:09) Comprehensive Metabolic Panel (12/03/21 10:09) Blood Culture (12/03/21 10:09) Urinalysis (12/03/21 10:09) Urine Culture (12/03/21 10:09) Protime With Inr (12/03/21 10:09) Partial Thromboplastin Time (12/03/21 10:09) Chest 1 View, Ap/Pa Only (12/03/21 10:09) Ed Iv/Invasive Line Start (12/03/21 10:09) Ed Iv/Invasive Line Start (12/03/21 10:09) Vital Signs Adult Sepsis Patie Q15M (12/03/21 10:09) Ondansetron Injection (Zofran Injectio (12/03/21 10:15) O2 (12/03/21 10:09) Remove Rings In Anticipation O (12/03/21 10:09) Lactic Acid Analyzer (12/03/21 10:09) Ns Iv 1000 Ml (Sodium Chloride 0.9%) (12/03/21 10:15) Piperacillin Sodium/Tazobactam (Zosyn Vi (12/03/21 10:15) Lipase (12/03/21 10:09) Hs C Reactive Protein (12/03/21 10:09) Fentanyl Inj (Sublimaze Injection) (12/03/21 10:30) Fentanyl Inj (Sublimaze Injection) (12/03/21 10:18) Morphine Injection (Morphine Injection (12/03/21 11:25) Methylprednisolone Sod Succ (Solu-Medrol (12/03/21 12:00) Diphenhydramine Injection (Benadryl Inje (12/03/21 12:00) Iohexol Injection (Omnipaque 350 Mg/Ml 1 (12/03/21 12:15) Received Contrast (Hold Metformin- Contr (12/03/21 12:15) Ns (Ivpb) (Sodium Chloride 0.9% Ivpb Bag (12/03/21 12:15) Medications Given in ED Current Medications Medications Dose Ordered Sig/Sy Route Start Time Stop Time Status Last Admin Dose Admin Diphenhydramine HCl 25 mg ONCE ONCE IVP 12/03/21 12:00 12/03/21 12:01 DC 12/03/21 12:10 25 MG Fentanyl Citrate 50 mcg ONCE ONCE IVP 12/03/21 10:30 12/03/21 10:31 DC 12/03/21 10:38 50 MCG Iohexol 100 ml ONCE ONCE IV 12/03/21 12:15 12/03/21 12:16 DC 12/03/21 12:22 100 ML Methylprednisolone Sodium Succinate 62.5 mg ONCE ONCE IVP 12/03/21 12:00 12/03/21 12:01 DC 12/03/21 12:10 62.5 MG Ondansetron HCl 8 mg PRN PRN IV 12/03/21 10:15 12/03/21 10:42 DC 12/03/21 10:37 8 MG Piperacillin Sod/ Tazobactam Sod 4.5 gm/Sodium Chloride 100 ml @ 200 mls/hr ONCE ONCE IV 12/03/21 10:15 12/03/21 10:44 DC 12/03/21 13:30 200 MLS/HR Sodium Chloride 100 ml ONCE ONCE IV 12/03/21 12:15 12/03/21 12:16 DC 12/03/21 12:22 80 ML Sodium Chloride 1,000 ml @ 0 mls/hr Q0M ONCE IV 12/03/21 10:15 12/03/21 10:16 DC 12/03/21 10:41 1,000 MLS/HR Vital Signs/I&O 12/03/21 10:00 Temp 36.2 Pulse 93 Resp 20 B/P (MAP) 142/91 (108) Pulse Ox 95 Progress Progress Note #1: Time: 10:20 Progress Note Obstipation versus diverticulitis versus hernia incarceration versus other. Plan to get some labs give her some fentanyl and Zofran and couple liters of fluids. Because of her tachycardia 110 we will initiate a septic work-up. Zosyn for coverage Progress Note #2: Time: 15:14 Progress Note Discussed the case with Dr. Ferrari, urology. If we control the patient's pain he would recommend she go to a larger center outpatient for percutaneous lithotripsy. Her body habitus is too great for extracorporeal. He would recommend pain medicines and antibiotics. Diagnostic Imaging Diagonstic Imaging: CT Plain Films/CT/US/NM/MRI: abdomen, pelvis Comments [facility], [place] NAME: CLEOPATRA SHERIFF [facility] REC#: [id number] PT STATUS: REG ER : 1965 PHYSICIAN: WOOD ORTIZ MD ADMIT DATE: 12/03/21/ER Signed Date of Exam:12/03/21 CT ABDOMEN/PELVIS W INDICATION: Left-sided abdominal pain. TECHNIQUE: Multiple contiguous axial images were obtained through the abdomen and pelvis after administration of intravenous contrast. Auto Exposure Controls were utilized during the CT exam to meet ALARA standards for radiation dose reduction. All CT scans use one or more of the following dose optimizing techniques: Automated exposure control, MA and/or KvP adjustment based on patient size and exam type or iterative reconstruction. Comparison made to 05/10/2021. Patient was premedicated with Benadryl and Solu-Medrol due to history of allergy. FINDINGS: Visualized portions of the lung bases are clear. There were no pleural fluid collections. There is no free intraperitoneal air. The liver shows diffuse low-density change compatible with fatty infiltration. Gallbladder appears grossly unremarkable. There is no adrenal lesion. The spleen appears unremarkable. Study is limited by the lack of a precontrast study, but there does appear to be a large staghorn calculus involving the left renal pelvis and mid pole. There is hydronephrosis of the left kidney with perinephric edema. There is no retroperitoneal mass or adenopathy. There is no ascites. Uterus is enlarged with a prominent fibroid measuring about 8.4 cm. There is a very large ventral hernia with multiple components, containing multiple loops of bowel which are not obstructed. There are postop changes in the anterior abdominal wall. IMPRESSION: There appears to be a large partial staghorn calculus in the left kidney, with hydronephrosis and perinephric edema. There is fatty infiltration of the liver. There is a prominent fibroid in the uterus. Very large complex ventral wall abdominal hernia noted, without signs of bowel obstruction. Dictated by: Dictated on workstation # [id number] Dict: 12/03/21 1243 Trans: 12/03/21 1455 [id number] Interpreted by: DEWAYNE SIERRA MD Electronically signed by: DEWAYNE SIERRA MD 12/03/21 1452 Reviewed: Reviewed by Pa Diagonstic Imaging: Xray Plain Films/CT/US/NM/MRI: chest Comments [facility] [place] NAME: CLEOPATRA SHERIFF [facility] REC#: [id number] PT STATUS: REG ER : 1965 PHYSICIAN: WOOD ORTIZ MD ADMIT DATE: 12/03/21/ER Draft Date of Exam:12/03/21 CHEST 1 VIEW, AP/PA ONLY INDICATION: Sepsis and abdominal pain. TIME OF EXAM: 10:45 AM CORRELATION is made with prior chest from 05/12/2021. Cardiac size is stable. The lungs appear clear. No infiltrates are seen. There is no effusion or pneumothorax. IMPRESSION: No acute cardiopulmonary process is detected. Dictated on workstation # [id number] Dict: 12/03/21 1046 Trans: 12/03/21 1048 [facility] [id number] Interpreted by: ANJU MATHIS MD Electronically signed by: Reviewed: Reviewed by Me Departure Impression Primary Impression: Staghorn calculus Additional Impression: UTI (urinary tract infection) Qualified Codes: N39.0 - Urinary tract infection, site not specified; R31.9 - Hematuria, unspecified Disposition: 01 HOME, SELF-CARE Condition: Stable Departure-Patient Inst. Decision time for Depature: 15:44 Referrals: [facility] [place]) Primary Care Physician Patient Instructions: Percutaneous Nephrolithotomy, Kidney Stones (DC) Add. Discharge Instructions: You have a large staghorn kidney stone in your left kidney that is causing your pain. This will not pass on its own. He will require surgery at a larger center such as [facility]. Contact your primary care doctor at and ask for help setting up an outpatient appointment with urology. If you are having pain you may use Tylenol, ibuprofen, heating pads, topical creams and the hydrocodone. Hydrocodone 10 mg 1 or 2 tablets every 6 hours as needed to control your pain. This will cause drowsiness as well as constipation. Double up on your stool softener and consider taking MiraLAX as necessary to stay regular. Ondansetron 1 to 2 tablets every 6 hours as necessary for nausea or vomiting. Cefdinir 1 capsule twice a day until the stone is removed. Promptly return to the ER if you are having intractable pain nausea or other worrisome symptoms. Scripts Cefdinir (Cefdinir) 300 Mg Capsule 300 MG PO BID for 14 Days, #28 CAP 0 Refills Prov: WOOD ORTIZ 12/03/21 Ondansetron (Ondansetron Odt) 4 Mg Tab.rapdis 4-8 MG PO Q6H PRN for NAUSEA/VOMITING, #20 TAB 0 Refills Prov: WOOD ORTIZ 12/03/21 Hydrocodone Bit/Acetaminophen (HYDROcodone/APAP 10/325 TABLET) 1 Ea Tab 1-2 EA PO Q6H PRN for pain, #30 TAB 0 Refills Prov: WOOD ORTIZ 12/03/21 WOOD ORTIZ Dec 03, 2021 10:21
[2021-12-03 10:26] LABS: BASOPHILS % (AUTO) 0 % (0-10); EOSINOPHILS # (AUTO) 0.1 10^3/uL (0.0-0.3); EOSINOPHILS % (AUTO) 1 % (0-10); HEMATOCRIT 45 % (35-52); HEMOGLOBIN 14.5 g/dL (11.5-16.0); LYMPHOCYTES # (AUTO) 1.3 10^3/uL (1.0-4.0); LYMPHOCYTES % (AUTO) 12 % (12-44); MEAN CORPUSCULAR HEMOGLOBIN 30 pg (25-34); MEAN CORPUSCULAR HGB CONC 32 g/dL (32-36); MEAN CORPUSCULAR VOLUME 92 fL (80-99); MEAN PLATELET VOLUME 9.6 fL (9.0-12.2); MONOCYTES # (AUTO) 0.7 10^3/uL (0.0-1.0); MONOCYTES % (AUTO) 7 % (0-12); NEUTROPHILS # (AUTO) 8.9 10^3/uL (1.8-7.8); NEUTROPHILS % (AUTO) 80 % (42-75); PLATELET COUNT 195 10^3/uL (130-400); WHITE BLOOD COUNT 11.2 10^3/uL (4.3-11.0)
[2021-12-03] MEDS ORDERED: fentaNYL INJ 100 MCG/2 ML AMP IVP ONE (10:30)
[2021-12-03 10:40] LABS: PROTHROMBIN TIME PATIENT 13.6 SEC (12.2-14.7)
[2021-12-03] MEDS: PIPERACILLIN SODIUM/TAZOBACTAM 4.5 GM in NS (IVPB) 100 ML IV ONE ×2 (10:41→13:30)
[2021-12-03 10:44] LABS: ALBUMIN 3.5 GM/DL (3.2-4.5); POTASSIUM 3.9 MMOL/L (3.6-5.0)
[2021-12-03 10:45] LABS: CALCIUM 8.8 MG/DL (8.5-10.1)
[2021-12-03 10:47] LABS: TOTAL PROTEIN 7.1 GM/DL (6.4-8.2)
[2021-12-03 10:48] LABS: BILIRUBIN,TOTAL 0.9 MG/DL (0.1-1.0)
--- NOTE | 2021-12-03 10:49 | Diagnostic Imaging Report ---
INDICATION: Sepsis and abdominal pain. TIME OF EXAM: 10:45 AM CORRELATION is made with prior chest from 05/12/2021. Cardiac size is stable. The lungs appear clear. No infiltrates are seen. There is no effusion or pneumothorax. IMPRESSION: No acute cardiopulmonary process is detected. Dictated by: Dictated on workstation # [id number]
[2021-12-03 10:50] LABS: CREATININE SERUM 0.89 MG/DL (0.60-1.30)
[2021-12-03 11:21] LABS: BILIRUBIN,URINE NEGATIVE (NEGATIVE); CLARITY,URINE CLOUDY; COLOR,URINE YELLOW; GLUCOSE, URINE (UA) 3+ (NEGATIVE); KETONES,URINE 1+ (NEGATIVE); LEUKOCYTE ESTERASE ,URINE TRACE (NEGATIVE); NITRITE,URINE NEGATIVE (NEGATIVE); PROTEIN,URINE 2+ (NEGATIVE)
[2021-12-03] MEDS ORDERED: morphine INJ 10 MG/ML 1ML (SYR OR VIAL) IVP STA ×2 (11:25→15:41)
[2021-12-03 11:33] LABS: BACTERIA,URINE TRACE /HPF; WBC,URINE >100 /HPF
[2021-12-03] MEDS ORDERED: methylPREDNISolone 125 MG (Solu-MEDROL) VIAL IVP ONE (12:00)
[2021-12-03] MEDS ORDERED: diphenhydrAMINE 50 MG/ML INJ (BENADRYL) IVP ONE (12:00)
[2021-12-03] MEDS ORDERED: HOLD METFORMIN - RECEIVED CONTRAST 20 ML VIAL IV SCH (12:15)
[2021-12-03] MEDS ORDERED: NS 100 ML (IVPB) BAG IV ONE (12:15)
[2021-12-03] MEDS ORDERED: IOHEXOL 350 MG/ML 100 ML (OMNIPAQUE 350) VIAL IV ONE (12:15)
--- NOTE | 2021-12-03 12:52 | Diagnostic Imaging Report ---
INDICATION: Left-sided abdominal pain. TECHNIQUE: Multiple contiguous axial images were obtained through the abdomen and pelvis after administration of intravenous contrast. Auto Exposure Controls were utilized during the CT exam to meet ALARA standards for radiation dose reduction. All CT scans use one or more of the following dose optimizing techniques: Automated exposure control, MA and/or KvP adjustment based on patient size and exam type or iterative reconstruction. Comparison made to 05/10/2021. Patient was premedicated with Benadryl and Solu-Medrol due to history of allergy. FINDINGS: Visualized portions of the lung bases are clear. There were no pleural fluid collections. There is no free intraperitoneal air. The liver shows diffuse low-density change compatible with fatty infiltration. Gallbladder appears grossly unremarkable. There is no adrenal lesion. The spleen appears unremarkable. Study is limited by the lack of a precontrast study, but there does appear to be a large staghorn calculus involving the left renal pelvis and mid pole. There is hydronephrosis of the left kidney with perinephric edema. There is no retroperitoneal mass or adenopathy. There is no ascites. Uterus is enlarged with a prominent fibroid measuring about 8.4 cm. There is a very large ventral hernia with multiple components, containing multiple loops of bowel which are not obstructed. There are postop changes in the anterior abdominal wall. IMPRESSION: There appears to be a large partial staghorn calculus in the left kidney, with hydronephrosis and perinephric edema. There is fatty infiltration of the liver. There is a prominent fibroid in the uterus. Very large complex ventral wall abdominal hernia noted, without signs of bowel obstruction. Dictated by: Dictated on workstation # [id number]
[2021-12-03] MEDS ORDERED: ONDANSETRON 4 MG/2 ML (SDV) Z0FRAN IVP ONE (15:45)
[2021-12-03] MEDS ORDERED: ACHYD1T PO (15:48)
[2021-12-03] MEDS ORDERED: ONDA4TAB11 PO (15:48)
[2021-12-03] MEDS ORDERED: CEFD300C3 PO (15:48)
[2021-12-03 16:24] VITALS: BP 149/83
== END 2021-12-03 16:34 | disposition home or self-care (01) ==
LOC: EDUNIT# 09:54 → ER 10:00
DX: N39.0 Urinary tract infection, site not specified (principal); N20.0 Calculus of kidney; I10 Essential (primary) hypertension; E11.9 Type 2 diabetes mellitus without complications; J44.9 Chronic obstructive pulmonary disease, unspecified; E78.00 Pure hypercholesterolemia, unspecified; I48.91 Unspecified atrial fibrillation; K21.9 Gastro-esophageal reflux disease without esophagitis; F41.9 Anxiety disorder, unspecified; F32.A Depression, unspecified; G40.909 Epilepsy, unspecified, not intractable, without status epilepticus; E66.01 Morbid (severe) obesity due to excess calories; F17.210 Nicotine dependence, cigarettes, uncomplicated; F17.290 Nicotine dependence, other tobacco product, uncomplicated; Z68.44 Body mass index [BMI] 60.0-69.9, adult; Z79.01 Long term (current) use of anticoagulants; Z79.51 Long term (current) use of inhaled steroids; Z79.84 Long term (current) use of oral hypoglycemic drugs; Z79.899 Other long term (current) drug therapy; Z91.040 Latex allergy status; Z99.3 Dependence on wheelchair
CPT/HCPCS: 36415; 51702; 71045; 74177; 80053; 81000; 83605; 83690; 85025; 85610; 85730; 86141; 87040; 87077; 87088; 87186

== ENCOUNTER 2021-12-08 11:12 | Emergency (ER) | payer MEDICAID ==
[~2021-12-08] VITALS: Ht 152 cm; Wt 190.0 kg
[~2021-12-08 11:12] MED LIST changes: +ACHYD1T PO; +CEFD300C3 PO; +ONDA4TAB11 PO
[2021-12-08] MEDS ORDERED: NS IV 1000 ML 1,000 ML IV STA (11:40)
[2021-12-08] MEDS ORDERED: fentaNYL INJ 100 MCG/2 ML AMP IVP STA (11:40)
[2021-12-08] MEDS ORDERED: cefTRIAXone 1 GM PRE-MIX 50 ML IV STA (11:43)
[2021-12-08] MEDS ORDERED: ONDANSETRON 4 MG/2 ML (SDV) Z0FRAN IVP ONE (11:45)
--- NOTE | 2021-12-08 11:47 | ED Abdominal Pain ---
General Stated Complaint: ABD PAIN Source of Information: Patient Exam Limitations: No Limitations History of Present Illness Date Seen by Provider: Dec 08, 2021 Time Seen by Provider: 11:44 Initial Comments Patient is a 56-year-old female presents ED with mid upper abdominal pain left flank pain. Continues pain for the past few weeks. She was seen here on the diagnosed with a large ventral hernia without any evidence of obstruction. She did have a notable large left staghorn kidney stone with secondary urinary tract infection. Was placed on antibiotics. Denies of any urinary symptoms but with continuous pain without any improvement of her hydrocodone at home. She reports vomiting. Few episodes of diarrhea. Denies of any skin color changes but did burn herself on her abdomen resulting in a small blister. She denies of any headache, dizziness, chest pain, cough, shortness of breath. Does have a history of COPD currently on 2 L oxygen at home. History of hernia repairs, gastric bypass, , appendectomy in the past. Patient was brought to ED by EMS from her apartment. Allergies and Home Medications Allergies Coded Allergies: latex (Verified Allergy, Intermediate, RASH, ITCHING, 03/02/11) vancomycin (Verified Allergy, Intermediate, HIVES, 03/02/11) iodine (Verified Allergy, Mild, "ILL", 03/02/11) lorazepam (Verified Allergy, Unknown, 07/12/17) phenobarbital (Verified Allergy, Unknown, 03/09/06) phenytoin (Verified Allergy, Unknown, 07/12/17) Patient Home Medication List Home Medication List Reviewed: Yes Albuterol Sulfate (Albuterol Sulfate) 2.5 Mg/3 Ml Vial.neb, 2.5 MG NEB Q4H PRN for SHORTNESS OF BREATH, (Reported) Entered as Reported by: CHARISSA PAYAN on 07/13/17 1051 Apixaban (Eliquis) 5 Mg Tablet, 5 MG PO BID, (Reported) Entered as Reported by: RADU CASTILLO on 05/11/21 1142 Atorvastatin Calcium (Atorvastatin Calcium) 40 Mg Tablet, 40 MG PO DAILY, (Reported) Entered as Reported by: RADU CASTILLO on 05/11/21 1142 Cefdinir (Cefdinir) 300 Mg Capsule, 300 MG PO BID Prescribed by: WOOD ORTIZ on 12/03/21 1548 Docusate Sodium (Stool Softener) 100 Mg Tablet, 100-200 MG PO BID PRN for CONSTIPATION-1ST LINE, (Reported) Entered as Reported by: RADU CASTILLO on 05/11/21 1142 Ergocalciferol (Vitamin D2) (Vitamin D2) 1,250 Mcg Capsule, 1,250 MCG PO FRI, (Reported) Entered as Reported by: RADU CASTILLO on 05/11/21 1142 Fluticasone Propion/Salmeterol (Fluticasone-Salmeterol 250-50) 1 Each Blst.w. dev, 1 PUFF INH BID PRN for SHORTNESS OF BREATH, (Reported) Entered as Reported by: RADU CASTILLO on 05/11/21 1142 Fluticasone Propionate (Flonase Allergy Relief) 9.9 Ml Sieper.susp, 1 SPRAY NSEACH BID PRN for CONGESTION, (Reported) Entered as Reported by: RADU CASTILLO on 05/11/21 1142 Furosemide (Furosemide) 40 Mg Tablet, 40 MG PO BID, (Reported) Entered as Reported by: CHARISSA PAYAN on 07/13/17 1051 Hydrocodone Bit/Acetaminophen (HYDROcodone/APAP 10/325 TABLET) 1 Ea Tab, 1-2 EA PO Q6H PRN for pain Prescribed by: WOOD ORTIZ on 12/03/21 1548 Hydroxyzine Pamoate (Hydroxyzine Pamoate) 25 Mg Capsule, 25 MG PO HS PRN for A NXIETY, (Reported) Entered as Reported by: CHARISSA PAYAN on 07/13/17 1053 Metformin HCl (Metformin HCl) 1,000 Mg Tablet, 1,000 MG PO BID, (Reported) Entered as Reported by: RADU CASTILLO on 05/11/21 1142 Metoprolol Succinate (Metoprolol Succinate) 25 Mg Tab.er.24h, 25 MG PO DAILY, (Reported) Entered as Reported by: RADU CASTILLO on 05/11/21 1142 Ondansetron (Ondansetron Odt) 4 Mg Tab.rapdis, 4-8 MG PO Q6H PRN for NAUSEA/VOMITING Prescribed by: WOOD ORTIZ on 12/03/21 1548 Oxycodone HCl/Acetaminophen (Percocet 10-325 mg Tablet) 1 Each Tablet, 1 TAB PO Q4H PRN for PAIN Prescribed by: RAQUEL WEEMS on 12/08/21 1456 Oxycodone Hcl (Oxyir Tablet) 5 Mg Tab, 5 MG PO Q8H PRN for PAIN-MODERATE (5-7) Prescribed by: VALERI ARROYO on 05/13/21 1115 Pantoprazole Sodium (Pantoprazole Sodium) 20 Mg Tablet.dr, 20 MG PO DAILY, (Reported) Entered as Reported by: RADU CASTILLO on 05/11/21 1142 Potassium Chloride (Klor-Con M20) 20 Meq Tab.er.prt, 20 MEQ PO BID, (Reported) Entered as Reported by: RADU CASTILLO on 05/11/21 1147 Sertraline HCl (Sertraline HCl) 100 Mg Tablet, 100 MG PO DAILY, (Reported) Entered as Reported by: RADU CASTILLO on 05/11/21 1142 Silver Sulfadiazine (Ssd) 25 Gm Cream..g., 1 APPLIC TOP BID PRN for SKIN IRRITATION, (Reported) Entered as Reported by: RADU CASTILLO on 05/11/21 1142 Sumatriptan Succinate (Sumatriptan Succinate) 50 Mg Tablet, 50 MG PO UD PRN for MIGRAINE, (Reported) Entered as Reported by: RADU CASTILLO on 05/11/21 1142 [oxy] Prescribed by: RAQUEL WEEMS on 12/08/21 1455 Review of Systems Review of Systems Constitutional: No chills, No dizziness, No fever, No malaise EENTM: No Eye Pain, No Ear Pain, No Mouth Pain, No Throat Pain, No Throat Swelling Respiratory: Denies Cough, Denies SOA With Exertion, Denies SOA at Rest Cardiovascular: Denies Chest Pain, Denies Edema Gastrointestinal: Abdominal Pain, Diarrhea, Nausea, Vomiting Genitourinary: Denies Burning, Denies Frequency, Denies Flank Pain Musculoskeletal: back pain; No joint pain Skin: No change in color, No change in hair/nails All Other Systems Reviewed Negative Unless Noted: Yes Past U[facility]hc-Euwenp-Ysixjk Hx Past Medical History Surgery/Hospitalization HX: sx: c-sec, hernia repair, cardiac ablation pmh: afib, dm, high chol, htn, sleep apnea, copd, gerd, Surgeries: Yes (LAPAROTOMY, C-SECTIONS, HERNIA REPAIR, CARDIAC ABLATION;) Abdominal, Appendectomy, Cardiac Respiratory: Yes (CHRONIC RESPIRATORY FAILURE) Sleep Apnea, COPD Cardiac: Yes Atrial Fibrillation, Chronic Edema/Swelling, Heart Attack, High Cholesterol, Hypertension Neurological: Yes Seizure Disorder Reproductive Disorders: Yes Female Reproductive Disorders: Ovarian Cyst Genitourinary: No Gastrointestinal: Yes (VENTRAL HERNIA) Abdominal Hernia, Gastroesophageal Reflux Musculoskeletal: Yes (NON-MOBILE/BED BOUND DUE TO MORBID OBESITY) Endocrine: Yes (MORBID OBESITY) Diabetes, Non-Insulin dep HEENT: No Cancer: No Psychosocial: Yes Anxiety, Depression Integumentary: No Blood Disorders: No Family Medical History Alzheimer's disease 19 MOTHER Arthritis 19 MOTHER Asthma 19 FATHER 19 MOTHER Colon cancer 19 MOTHER Completed stroke 19 FATHER 19 MOTHER Deafness or hearing loss Dementia 19 MOTHER Diabetes mellitus 19 FATHER Glaucoma 19 FATHER 19 MOTHER Hypertension 19 FATHER 19 MOTHER Myocardial infarction 19 FATHER 19 MOTHER Respiratory disorder 19 MOTHER Cancer, Diabetes SOCIAL HISTORY: -ETOH--RARE USE -DRUGS--THC, COCAINE (SNORTS IT), METHAMPHETAMINE (SNORTS IT)--ON 03/02/21 CLAIMS "NO DRUGS FOR 13 YEARS" BUT TESTED + FOR METHAPMPHETAMINES -SMOKES 3 PPD, NOW "VAPES" PAST SURGICAL HISTORY: -EXPLORATORY LAPAROTOMY FOR OVARIAN CYST -MULTIPLE HERNIA REPAIRS--5 OR 6 SURGERIES - X 2 -CARDIAC ABLATION FOR ATRIAL FIBRILLATION PT IS NON-MOBILE AND BED-BOUND AND REQUIRES A GILBERTO LIFT FOR TRANSFERS TO WHEELCHAIR PT REQUIRES 2 --24 HOUR CAREGIVERS WITH HER AT ALL TIMES. Physical Exam Vital Signs Vital Signs - First Documented 12/08/21 11:15 Temp 36.7 Pulse 90 Resp 20 B/P (MAP) 127/101 (110) Pulse Ox 94 O2 Delivery Nasal Cannula Capillary Refill : Height/Weight/BMI Height: 5'4.00" Weight: 396lbs. 0.0oz. [id number]; 72.00 BMI Method:Estimated General Appearance: WD/WN, no apparent distress HEENT: PERRL/EOMI, normal ENT inspection, TMs normal, pharynx normal Neck: non-tender, full range of motion, supple, normal inspection Respiratory: chest non-tender, lungs clear, normal breath sounds, no respi ratory distress, no accessory muscle use Cardiovascular: regular rate, rhythm, no edema, no gallop Gastrointestinal: normal bowel sounds, soft, other (Large ventral hernia without any skin color changes. Fluid-filled blister to the lateral hernia. Normal bowel sounds. Tender to palpate mid upper abdomen) Back: normal inspection, CVA tenderness (L) Neurologic/Psychiatric: sheriffs officer II-XII nml as tested, no motor/sensory deficits, alert, normal mood/affect, oriented x 3 Skin: normal color, warm/dry Focused Exam Lactate Level 12/08/21 11:45: Lactic Acid Level 0.95 Lactic Acid Level Laboratory Tests Test 12/08/21 11:45 Lactic Acid Level 0.95 MMOL/L (0.50-2.00) Progress/Results/Core Measures Results/Orders Lab Results Laboratory Tests Test 12/08/21 11:45 12/08/21 12:22 Range/Units White Blood Count 7.7 4.3-11.0 10^3/uL Red Blood Count 4.37 3.80-5.11 10^6/uL Hemoglobin 13.0 11.5-16.0 g/dL Hematocrit 41 35-52 % Mean Corpuscular Volume 93 80-99 fL Mean Corpuscular Hemoglobin 30 25-34 pg Mean Corpuscular Hemoglobin Concent 32 32-36 g/dL Red Cell Distribution Width 13.5 10.0-14.5 % Platelet Count 203 130-400 10^3/uL Mean Platelet Volume 10.0 9.0-12.2 fL Immature Granulocyte % (Auto) 1 % Neutrophils (%) (Auto) 72 42-75 % Lymphocytes (%) (Auto) 18 12-44 % Monocytes (%) (Auto) 8 0-12 % Eosinophils (%) (Auto) 2 0-10 % Basophils (%) (Auto) 1 0-10 % Neutrophils # (Auto) 5.5 1.8-7.8 10^3/uL Lymphocytes # (Auto) 1.4 1.0-4.0 10^3/uL Monocytes # (Auto) 0.6 0.0-1.0 10^3/uL Eosinophils # (Auto) 0.1 0.0-0.3 10^3/uL Basophils # (Auto) 0.0 0.0-0.1 10^3/uL Immature Granulocyte # (Auto) 0.1 0.0-0.1 10^3/uL Percent Immature Platelet Fraction 2.9 0.0-7.6 % Sodium Level 137 135-145 MMOL/L Potassium Level 3.5 L 3.6-5.0 MMOL/L Chloride Level 99 98-107 MMOL/L Carbon Dioxide Level 24 21-32 MMOL/L Anion Gap 14 5-14 MMOL/L Blood Urea Nitrogen 4 L 7-18 MG/DL Creatinine 0.73 0.60-1.30 MG/DL Estimat Glomerular Filtration Rate 95 BUN/Creatinine Ratio 5 Glucose Level 190 H 70-105 MG/DL Lactic Acid Level 0.95 0.50-2.00 MMOL/L Calcium Level 8.5 8.5-10.1 MG/DL Corrected Calcium 9.2 8.5-10.1 MG/DL Total Bilirubin 0.7 0.1-1.0 MG/DL Aspartate Amino Transf (AST/SGOT) 51 H 5-34 U/L Alanine Aminotransferase (ALT/SGPT) 42 0-55 U/L Alkaline Phosphatase 157 H 40-136 U/L Total Protein 6.5 6.4-8.2 GM/DL Albumin 3.1 L 3.2-4.5 GM/DL Lipase 22 8-78 U/L Urine Color YELLOW Urine Clarity CLEAR Urine pH 7.0 5-9 Urine Specific [place] 1.010 L 1.016-1.022 Urine Protein TRACE H NEGATIVE Urine Glucose (UA) TRACE H NEGATIVE Urine Ketones 1+ H NEGATIVE Urine Nitrite NEGATIVE NEGATIVE Urine Bilirubin NEGATIVE NEGATIVE Urine Urobilinogen 0.2 < = 1.0 MG/DL Urine Leukocyte Esterase 3+ H NEGATIVE Urine RBC (Auto) 2+ H NEGATIVE Urine RBC RARE /HPF Urine WBC 25-50 H /HPF Urine Squamous Epithelial Cells RARE /HPF Urine Crystals NONE /LPF Urine Bacteria FEW H /HPF Urine Casts NONE /LPF Urine Mucus NEGATIVE /LPF Urine Culture Indicated YES My Orders Orders - MONIKA GARSIA Ua Culture If Indicated (12/08/21 11:29) Cbc With Automated Diff (12/08/21 11:40) Comprehensive Metabolic Panel (12/08/21 11:40) Lipase (12/08/21 11:40) Blood Culture (12/08/21 11:40) Lactic Acid Analyzer (12/08/21 11:40) Ns Iv 1000 Ml (Sodium Chloride 0.9%) (12/08/21 11:40) Ondansetron Injection (Zofran Injectio (12/08/21 11:45) Fentanyl Inj (Sublimaze Injection) (12/08/21 11:40) Ceftriaxone 1 Gm Pre-Mix (Rocephin 1 Gm (12/08/21 11:43) Urine Culture (12/08/21 12:22) Ct Abdomen/Pelvis Wo (12/08/21 12:57) Morphine Injection (Morphine Injection (12/08/21 14:45) Medications Given in ED Current Medications Medications Dose Ordered Sig/Sy Route Start Time Stop Time Status Last Admin Dose Admin Morphine Sulfate 4 mg ONCE ONCE IVP 12/08/21 14:45 12/08/21 14:46 DC 12/08/21 14:48 4 MG Ondansetron HCl 4 mg ONCE ONCE IVP 12/08/21 11:45 12/08/21 11:46 DC 12/08/21 12:22 4 MG Vital Signs/I&O 12/08/21 12/08/21 11:15 15:07 Temp 36.7 Pulse 90 92 Resp 20 18 B/P (MAP) 127/101 (110) 143/77 Pulse Ox 94 96 O2 Delivery Nasal Cannula Departure Communication (Admissions) Patient is obese. Patient is large. She does have notable surgical scar lower abdomen. Palpable ventral hernia noted. Tender throughout the abdomen. She states she has been vomiting but able to eat some at home. Unclear how long this pain has been ongoing believe it is more chronic but maybe worse over the past 4 to 5 days. Was seen here in the ER had a CT abdomen pelvis that showed large ventral hernia without evidence obstruction. Was found to have a UTI. Was placed on cephalosporin. Urinalysis today appears to be improving. She denies of any specific urinary symptoms. Recommend continue medication at home. Urine culture appears to be susceptible to medication. Patient was given IV pain medication. Lab work appear to be in proved since her last visit on the 03 of December. Normal white blood count, kidney function, liver function. CT abdomen and pelvis was ordered secondary to concerning for potential obstruction from herination. Not able to get a KUB initially secondary to patient's weight. CT scan was ordered which did show a large ventral hernia. Possible incarceration of the antrum of the stomach with small amount of air- fluid levels with proximal mildly distention. No surrounding stranding. Discussed patient with Dr. Crenshaw surgeon. Did review the imaging several times. Patient is currently being managed by general surgeon at [facility]. This would be extensive surgery needed tertiary care. Surgery Dr. Crenshaw did not feel that there is no current obstruction or incarcerated stomach. Due to the length and size of this hernia would make it more difficult to have incarcerated bowel or stomach. I do agree at this time. Patient states she would rather follow-up outpatient then observing here. Did offer to contact her general surgeon which patient refused. Patient will be transferred back to her home with change in pain medication. Continue with UTI medication. Return precautions were discussed with patient. Impression Primary Impression: Abdominal pain Disposition: HOME, SELF-CARE Condition: Stable Departure-Patient Inst. Decision time for Depature: 14:53 Ref[place]: [facility] [place] (PCP/Family) Primary Care Physician Patient Instructions: Abdominal Pain, Adult ED Scripts Oxycodone HCl/Acetaminophen (Percocet 10-325 mg Tablet) 1 Each Tablet 1 TAB PO Q4H PRN for PAIN, #8 TAB 0 Refills Prov: MONIKA GARSIA 12/08/21 [oxy] No Conflict Check Prov: MONIKA GARSIA 12/08/21 MONIKA GARSIA Dec 08, 2021 11:47
[2021-12-08 12:14] LABS: MEAN CORPUSCULAR HGB CONC 32 g/dL (32-36)
[2021-12-08 12:16] LABS: BASOPHILS % (AUTO) 1 % (0-10); EOSINOPHILS # (AUTO) 0.1 10^3/uL (0.0-0.3); EOSINOPHILS % (AUTO) 2 % (0-10); HEMATOCRIT 41 % (35-52); LYMPHOCYTES # (AUTO) 1.4 10^3/uL (1.0-4.0); LYMPHOCYTES % (AUTO) 18 % (12-44); MEAN CORPUSCULAR HEMOGLOBIN 30 pg (25-34); MEAN CORPUSCULAR VOLUME 93 fL (80-99); MONOCYTES # (AUTO) 0.6 10^3/uL (0.0-1.0); MONOCYTES % (AUTO) 8 % (0-12); NEUTROPHILS # (AUTO) 5.5 10^3/uL (1.8-7.8); NEUTROPHILS % (AUTO) 72 % (42-75); PLATELET COUNT 203 10^3/uL (130-400); WHITE BLOOD COUNT 7.7 10^3/uL (4.3-11.0)
[2021-12-08 12:25] LABS: ALBUMIN 3.1 GM/DL (3.2-4.5)
[2021-12-08 12:26] LABS: POTASSIUM 3.5 MMOL/L (3.6-5.0)
[2021-12-08 12:27] LABS: CALCIUM 8.5 MG/DL (8.5-10.1)
[2021-12-08 12:28] LABS: TOTAL PROTEIN 6.5 GM/DL (6.4-8.2)
[2021-12-08 12:29] LABS: BILIRUBIN,URINE NEGATIVE (NEGATIVE); CLARITY,URINE CLEAR; COLOR,URINE YELLOW; GLUCOSE, URINE (UA) TRACE (NEGATIVE); KETONES,URINE 1+ (NEGATIVE); LEUKOCYTE ESTERASE ,URINE 3+ (NEGATIVE); NITRITE,URINE NEGATIVE (NEGATIVE); PROTEIN,URINE TRACE (NEGATIVE)
[2021-12-08 12:30] LABS: BILIRUBIN,TOTAL 0.7 MG/DL (0.1-1.0)
[2021-12-08 12:32] LABS: CREATININE SERUM 0.73 MG/DL (0.60-1.30)
[2021-12-08 12:35] LABS: RBC,URINE RARE /HPF
[2021-12-08 12:36] LABS: BACTERIA,URINE FEW /HPF; SQUAMOUS EPITHELIAL CELL,UR RARE /HPF; WBC,URINE 25-50 /HPF
--- NOTE | 2021-12-08 14:08 | Diagnostic Imaging Report ---
PROCEDURE: CT abdomen and pelvis without contrast. TECHNIQUE: Multiple contiguous axial images were obtained through the abdomen and pelvis without the use of intravenous contrast. Auto Exposure Controls were utilized during the CT exam to meet ALARA standards for radiation dose reduction. INDICATION: Abdominal pain. Nausea. COMPARISON: 12/03/2021. FINDINGS: Included portions of the lung bases are clear. CT ABDOMEN: Again identified is massive right-sided ventral hernia. Defect measures approximately 20 cm in transverse dimension. The hernia contains a large portion of large and small bowel. Hernia and its contents are not entirely included in the [id number] due to limitations of the size of the CT gantry and patient body habitus. Visualized small bowel loops, however, are nondistended. A normal appendix cannot be adequately identified. Note is made, however, of localized dilatation of herniated portion of the antrum of the stomach. Air-fluid level is identified within the herniated portion of the antrum. This does raise concern for potential incarceration. Patient is status post gastric sleeve surgery. More proximal portion of the stomach does not appear significantly distended. Large left-sided staghorn calculus is also again identified. There is persistent hydronephrosis localized to the inferior pole of the left kidney. There is also asymmetric mild stranding of the perinephric fat on the left. Right kidney has an unremarkable noncontrast CT appearance. No ureteral calculi are seen on either side. The adrenal glands, spleen, and pancreas have an unremarkable noncontrast CT appearance. Liver is nearly entirely diffusely hypodense consistent with hepatic steatosis. No focal hepatic lesions are seen on this noncontrast exam. There is no loculated fluid collection, free fluid, or free air within the abdomen. No abnormal mesenteric or retroperitoneal adenopathy is identified. Osseous structures show no acute abnormalities. CT PELVIS: Law catheter is present within the urinary bladder. Urinary bladder is decompressed. There is a large mass extending from the fundus of the uterus on the right; most likely a fibroid. There is no loculated fluid collection, free fluid, or free air within the pelvis. No abnormal adenopathy is seen. Osseous structures show no acute abnormalities. IMPRESSION: 1. Redemonstration of large right-sided ventral hernia containing large amount of large and small bowel. Again, full extent and content of the hernia is not entirely included in the [id number] due to large patient body habitus and limitations of the CT gantry. There is no evidence of small bowel obstruction. There may, however, be incarcerated herniation of the antrum of the stomach. Gastric outlet obstruction is felt to be unlikely, but correlation with upper GI exam may be of benefit. 2. Redemonstration of large left-sided staghorn calculus with at least partial obstruction of the inferior pole. 3. Hepatic steatosis. Dictated by: Dictated on workstation # [id number]
[2021-12-08] MEDS ORDERED: morphine INJ 10 MG/ML 1ML (SYR OR VIAL) IVP ONE (14:45)
[2021-12-08] MEDS ORDERED: oxy (14:55)
[2021-12-08] MEDS ORDERED: OXYC1TAB12 PO ×2 (14:55→14:57)
[2021-12-08 15:07] VITALS: BP 143/77
== END 2021-12-08 15:32 | disposition home or self-care (01) ==
LOC: ER 11:12
DX: R10.10 Upper abdominal pain, unspecified (principal); G47.30 Sleep apnea, unspecified; J44.9 Chronic obstructive pulmonary disease, unspecified; I25.2 Old myocardial infarction; I10 Essential (primary) hypertension; F41.9 Anxiety disorder, unspecified; E66.01 Morbid (severe) obesity due to excess calories; F32.9 Major depressive disorder, single episode, unspecified; E11.9 Type 2 diabetes mellitus without complications; K21.9 Gastro-esophageal reflux disease without esophagitis; E78.00 Pure hypercholesterolemia, unspecified; I48.91 Unspecified atrial fibrillation; Z68.45 Body mass index [BMI] 70 or greater, adult; Z91.040 Latex allergy status; Z79.84 Long term (current) use of oral hypoglycemic drugs; Z79.01 Long term (current) use of anticoagulants; Z79.899 Other long term (current) drug therapy
CPT/HCPCS: 36415; 74176; 80053; 81000; 83605; 83690; 85025; 87040; 87077; 87088

== ENCOUNTER 2022-06-07 08:22 | Inpatient (IN) | payer MEDICAID ==
[~2022-06-07] VITALS: Ht 163 cm; Wt 166.9 kg
[~2022-06-07 08:22] MED LIST changes: +OXYC1TAB12 PO; +oxy
[2022-06-07 08:53] LABS: BASOPHILS % (AUTO) 0 % (0-10); EOSINOPHILS # (AUTO) 0.1 10^3/uL (0.0-0.3); EOSINOPHILS % (AUTO) 1 % (0-10); HEMATOCRIT 46 % (35-52); HEMOGLOBIN 14.8 g/dL (11.5-16.0); LYMPHOCYTES # (AUTO) 1.5 10^3/uL (1.0-4.0); LYMPHOCYTES % (AUTO) 16 % (12-44); MEAN CORPUSCULAR HEMOGLOBIN 31 pg (25-34); MEAN CORPUSCULAR HGB CONC 32 g/dL (32-36); MEAN CORPUSCULAR VOLUME 96 fL (80-99); MEAN PLATELET VOLUME 9.1 fL (9.0-12.2); MONOCYTES # (AUTO) 0.5 10^3/uL (0.0-1.0); MONOCYTES % (AUTO) 5 % (0-12); NEUTROPHILS # (AUTO) 7.6 10^3/uL (1.8-7.8); NEUTROPHILS % (AUTO) 78 % (42-75); PLATELET COUNT 200 10^3/uL (130-400); WHITE BLOOD COUNT 9.8 10^3/uL (4.3-11.0)
--- NOTE | 2022-06-07 08:53 | ED Abdominal Pain ---
General Chief Complaint: Abdominal/GI Problems Stated Complaint: ABD PAIN Nursing Triage Note: PT ARRIVED VIA [facility] WITH COMPLAINTS OF ABD PAIN AND DISTENTION. PT STATED THAT SHE STARTED VOMITING LAST NIGHT AND WHEN SHE VOMITED THIS MORNING IT WAS "STOOL". Source of Information: Patient, Caregiver, EMS Exam Limitations: No Limitations (CHARLIE SU MD) History of Present Illness Date Seen by Provider: Jun 07, 2022 Time Seen by Provider: 08:27 Initial Comments This 56-year-old woman presents to the emergency room via EMS with complaints of abdominal pain, nausea, and vomiting that started last night. She reports her emesis has the appearance and smell of stool. She has extensive history of hernia and hernia repairs. She states 6-8 surgeries in total for hernia treatments. She has also had cyst removals and appendectomy. She has history of significant kidney stones as well for which she has received laser therapy and ureteral stent placement and removal. She gets treatment for her ureteral stones at by Dr. Conley. She has had recent hematuria or bleeding from the perineal area noted on clothing changes as well. She has not had any fever. She uses nasal cannula chronically in her mouth as she is a mouth breather. She weighs approximately 330 pounds and is not ambulatory. She reports a significant weight loss of approximately 150 pounds in the last year or so in an effort to "get healthy". She also has a history of substance abuse and admits to using methamphetamines about a month ago. She reports a contrast dye allergy but states she has successfully received contrast dye after pretreatment with Benadryl and steroids. Radu Barth is her primary care provider. She has history of atrial fibrillation and is on Eliquis. Last dose was about 24 hours ago. She did not take her medications last night or this morning. (CHARLIE SU MD) Allergies and Home Medications Allergies Coded Allergies: latex (Verified Allergy, Intermediate, RASH, ITCHING, 03/02/11) vancomycin (Verified Allergy, Intermediate, HIVES, 03/02/11) iodine (Verified Allergy, Mild, "ILL", 03/02/11) lorazepam (Verified Allergy, Unknown, 07/12/17) phenobarbital (Verified Allergy, Unknown, 03/09/06) phenytoin (Verified Allergy, Unknown, 07/12/17) Patient Home Medication List Home Medication List Reviewed: Yes (CHARLIE SU MD) Albuterol Sulfate (Albuterol Sulfate) 2.5 Mg/3 Ml Vial.neb, 2.5 MG NEB Q4H PRN for SHORTNESS OF BREATH, (Reported) Entered as Reported by: CHARISSA PAYAN on 07/13/17 1051 Apixaban (Eliquis) 5 Mg Tablet, 5 MG PO BID, (Reported) Entered as Reported by: RADU CASTILLO on 05/11/21 1142 Atorvastatin Calcium (Atorvastatin Calcium) 40 Mg Tablet, 40 MG PO DAILY, (Reported) Entered as Reported by: RADU CASTILLO on 05/11/21 1142 Cefdinir (Cefdinir) 300 Mg Capsule, 300 MG PO BID Prescribed by: WOOD ORTIZ on 12/03/21 154 Docusate Sodium (Stool Softener) 100 Mg Tablet, 100-200 MG PO BID PRN for CONSTIPATION-1ST LINE, (Reported) Entered as Reported by: RADU CASTILLO on 05/11/21 1142 Ergocalciferol (Vitamin D2) (Vitamin D2) 1,250 Mcg Capsule, 1,250 MCG PO FRI, (Reported) Entered as Reported by: RADU CASTILLO on 05/11/21 1142 Fluticasone Propion/Salmeterol (Fluticasone-Salmeterol 250-50) 1 Each Blst.w.dev, 1 PUFF INH BID PRN for SHORTNESS OF BREATH, (Reported) Entered as Reported by: RADU CASTILLO on 05/11/21 1142 Fluticasone Propionate (Flonase Allergy Relief) 9.9 Ml [place].susp, 1 SPRAY NSEACH BID PRN for CONGESTION, (Reported) Entered as Reported by: RADU CASTILLO on 05/11/21 1142 Furosemide (Furosemide) 40 Mg Tablet, 40 MG PO BID, (Reported) Entered as Reported by: CHARISSA PAYAN on 07/13/17 1051 Hydrocodone Bit/Acetaminophen (HYDROcodone/APAP 10/325 TABLET) 1 Ea Tab, 1-2 EA PO Q6H PRN for pain Prescribed by: WOOD ORTIZ on 12/03/21 1548 Hydroxyzine Pamoate (Hydroxyzine Pamoate) 25 Mg Capsule, 25 MG PO HS PRN for ANXIETY, (Reported) Entered as Reported by: CHARISSA PAYAN on 07/13/17 1053 Metformin HCl (Metformin HCl) 1,000 Mg Tablet, 1,000 MG PO BID, (Reported) Entered as Reported by: RADU CASTILLO on 05/11/21 1142 Metoprolol Succinate (Metoprolol Succinate) 25 Mg Tab.er.24h, 25 MG PO DAILY, (Reported) Entered as Reported by: RADU CASTILLO on 05/11/21 1142 Ondansetron (Ondansetron Odt) 4 Mg Tab.rapdis, 4-8 MG PO Q6H PRN for NAUSEA/VOMITING Prescribed by: WOOD ORTIZ on 12/03/21 1548 Oxycodone HCl/Acetaminophen (Percocet 10-325 mg Tablet) 1 Each Tablet, 1 TAB PO Q4H PRN for PAIN Prescribed by: RAQUEL WEEMS on 12/08/21 1457 Oxycodone Hcl (Oxyir Tablet) 5 Mg Tab, 5 MG PO Q8H PRN for PAIN-MODERATE (5-7) Prescribed by: VALERI ARROYO on 05/13/21 1115 Pantoprazole Sodium (Pantoprazole Sodium) 20 Mg Tablet.dr, 20 MG PO DAILY, (Reported) Entered as Reported by: RADU CASTILLO on 05/11/21 1142 Potassium Chloride (Klor-Con M20) 20 Meq Tab.er.prt, 20 MEQ PO BID, (Reported) Entered as Reported by: RADU CASTILLO on 05/11/21 1147 Sertraline HCl (Sertraline HCl) 100 Mg Tablet, 100 MG PO DAILY, (Reported) Entered as Reported by: RADU CASTILLO on 05/11/21 1142 Silver Sulfadiazine (Ssd) 25 Gm Cream..g., 1 APPLIC TOP BID PRN for SKIN IRRITATION, (Reported) Entered as Reported by: RADU CASTILLO on 05/11/21 1142 Sumatriptan Succinate (Sumatriptan Succinate) 50 Mg Tablet, 50 MG PO UD PRN for MIGRAINE, (Reported) Entered as Reported by: RADU CASTILLO on 05/11/21 114 [oxy] Prescribed by: RAQUEL WEEMS on 12/08/21 1455 Review of Systems Review of Systems Constitutional: see HPI EENTM: No Symptoms Reported Respiratory: See HPI Cardiovascular: No Symptoms Reported Gastrointestinal: See HPI Genitourinary: No Symptoms Reported Musculoskeletal: no symptoms reported Skin: no symptoms reported Psychiatric/Neurological: No Symptoms Reported Endocrine: No Symptoms Reported Hematologic/Lymphatic: No Symptoms Reported (CHARLIE SU MD) Past Jtbdymo-Aslakt-Wszlwk Hx Patient Social History Tobacco Use?: Yes Smoking Status: Former Smoker Use of E-Cig and/or Vaping dev: Yes E-Cig or Vaping type used: Nicotine Use of E-Cig and/or Vaping Kurtis: Current Everyday User Substance use?: Yes Substance type: Methamphetamine Substance frequency: Several times a month Alcohol Use?: No (CHARLIE SU MD) Immunizations Up To Date Influenza Vaccine Up-to-Date: No; Not Current (CHARLIE SU MD) Past Medical History Surgery/Hospitalization HX: sx: c-sec, hernia repair, cardiac ablation pmh: afib, dm, high chol, htn, sleep apnea, copd, gerd, Surgeries: Yes (LAPAROTOMY, C-SECTIONS, HERNIA REPAIR, CARDIAC ABLATION;) Abdominal, Appendectomy, Cardiac, Section Respiratory: Yes (CHRONIC RESPIRATORY FAILURE) Sleep Apnea, COPD Cardiac: Yes Atrial Fibrillation, Chronic Edema/Swelling, Heart Attack, High Cholesterol, Hypertension Neurological: Yes Seizure Disorder : No Reproductive Disorders: Yes Female Reproductive Disorders: Ovarian Cyst Genitourinary: No Gastrointestinal: Yes (VENTRAL HERNIA) Abdominal Hernia, Gastroesophageal Reflux Musculoskeletal: Yes (NON-MOBILE/BED BOUND DUE TO MORBID OBESITY) Endocrine: Yes (MORBID OBESITY) Diabetes, Non-Insulin dep HEENT: No Cancer: No Psychosocial: Yes Anxiety, Depression Integumentary: No Blood Disorders: No (CHARLIE SU MD) Family Medical History Alzheimer's disease 19 MOTHER Arthritis 19 MOTHER Asthma 19 FATHER 19 MOTHER Colon cancer 19 MOTHER Completed stroke 19 FATHER 19 MOTHER Deafness or hearing loss Dementia 19 MOTHER Diabetes mellitus 19 FATHER Glaucoma 19 FATHER 19 MOTHER Hypertension 19 FATHER 19 MOTHER Myocardial infarction 19 FATHER 19 MOTHER Respiratory disorder 19 MOTHER Cancer, Diabetes SOCIAL HISTORY: -ETOH--RARE USE -DRUGS--THC, COCAINE (SNORTS IT), METHAMPHETAMINE (SNORTS IT)--ON 03/02/21 CLAIMS "NO DRUGS FOR 13 YEARS" BUT TESTED + FOR METHAPMPHETAMINES -SMOKES 3 PPD, NOW "VAPES" PAST SURGICAL HISTORY: -EXPLORATORY LAPAROTOMY FOR OVARIAN CYST -MULTIPLE HERNIA REPAIRS--5 OR 6 SURGERIES - X 2 -CARDIAC ABLATION FOR ATRIAL FIBRILLATION PT IS NON-MOBILE AND BED-BOUND AND REQUIRES A GILBERTO LIFT FOR TRANSFERS TO WHEELCHAIR PT REQUIRES 2 --24 HOUR CAREGIVERS WITH HER AT ALL TIMES. (CHARLIE SU MD) Physical Exam Vital Signs Vital Signs - First Documented 06/07/22 08:22 Temp 36.0 Pulse 69 Resp 12 B/P (MAP) 129/100 (110) Pulse Ox 96 O2 Delivery Nasal Cannula O2 Flow Rate 2.00 (AMBROSIO POLANCO MD) Vital Signs Capillary Refill : (CHARLIE SU MD) Height/Weight/BMI Height: 5'4.00" Weight: 396lbs. 0.0oz. 179.448779qt; 56.00 BMI Method:Estimated General Appearance: WD/WN, mild distress HEENT: PERRL/EOMI, normal ENT inspection, pharynx normal Neck: normal inspection Respiratory: lungs clear, normal breath sounds, no respiratory distress Cardiovascular: regular rate, rhythm, no edema, no murmur Gastrointestinal: normal bowel sounds, soft, other (Abdominal exam is difficult due to body habitus and postoperative changes. By palpation and observation she appears to possibly have abdominal wall hernias but they cannot be clearly palpated. 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 nml as tested, no motor/sensory deficits, alert, normal mood/affect, oriented x 3 Skin: normal color, warm/dry (CHARLIE SU MD) Focused Exam Lactate Level 06/07/22 13:55: Lactic Acid Level 0.89 (AMBROSIO POLANCO MD) Lactic Acid Level Laboratory Tests Test 06/07/22 13:55 Lactic Acid Level 0.89 MMOL/L (0.50-2.00) (AMBROSIO POLANCO MD) Progress/Results/Core Measures Results/Orders Lab Results Laboratory Tests Test 06/07/22 08:40 06/07/22 11:14 06/07/22 13:55 Range/Units White Blood Count 9.8 4.3-11.0 10^3/uL Red Blood Count 4.77 3.80-5.11 10^6/uL Hemoglobin 14.8 11.5-16.0 g/dL Hematocrit 46 35-52 % Mean Corpuscular Volume 96 80-99 fL Mean Corpuscular Hemoglobin 31 25-34 pg Mean Corpuscular Hemoglobin Concent 32 32-36 g/dL Red Cell Distribution Width 13.3 10.0-14.5 % Platelet Count 200 130-400 10^3/uL Mean Platelet Volume 9.1 9.0-12.2 fL Immature Granulocyte % (Auto) 0 % Neutrophils (%) (Auto) 78 H 42-75 % Lymphocytes (%) (Auto) 16 12-44 % Monocytes (%) (Auto) 5 0-12 % Eosinophils (%) (Auto) 1 0-10 % Basophils (%) (Auto) 0 0-10 % Neutrophils # (Auto) 7.6 1.8-7.8 10^3/uL Lymphocytes # (Auto) 1.5 1.0-4.0 10^3/uL Monocytes # (Auto) 0.5 0.0-1.0 10^3/uL Eosinophils # (Auto) 0.1 0.0-0.3 10^3/uL Basophils # (Auto) 0.0 0.0-0.1 10^3/uL Immature Granulocyte # (Auto) 0.0 0.0-0.1 10^3/uL Sodium Level 140 135-145 MMOL/L Potassium Level 4.0 3.6-5.0 MMOL/L Chloride Level 102 98-107 MMOL/L Carbon Dioxide Level 28 21-32 MMOL/L Anion Gap 10 5-14 MMOL/L Blood Urea Nitrogen 9 7-18 MG/DL Creatinine 0.73 0.60-1.30 MG/DL Estimat Glomerular Filtration Rate 95 BUN/Creatinine Ratio 12 Glucose Level 136 H 70-105 MG/DL Calcium Level 9.5 8.5-10.1 MG/DL Corrected Calcium 9.6 8.5-10.1 MG/DL Total Bilirubin 0.8 0.1-1.0 MG/DL Aspartate Amino Transf (AST/SGOT) 21 5-34 U/L Alanine Aminotransferase (ALT/SGPT) 24 0-55 U/L Alkaline Phosphatase 109 40-136 U/L C-Reactive Protein High Sensitivity 1.36 H 0.00-0.50 MG/DL Total Protein 7.2 6.4-8.2 GM/DL Albumin 3.9 3.2-4.5 GM/DL Lipase 11 8-78 U/L Urine Color YELLOW Urine Clarity CLOUDY Urine pH 6.0 5-9 Urine Specific Kila >=1.030 1.016-1.022 Urine Protein TRACE H NEGATIVE Urine Glucose (UA) NEGATIVE NEGATIVE Urine Ketones NEGATIVE NEGATIVE Urine Nitrite POSITIVE H NEGATIVE Urine Bilirubin NEGATIVE NEGATIVE Urine Urobilinogen 0.2 < = 1.0 MG/DL Urine Leukocyte Esterase 1+ H NEGATIVE Urine RBC (Auto) 1+ H NEGATIVE Urine RBC 2-5 H /HPF Urine WBC 50-100 H /HPF Urine Squamous Epithelial Cells RARE /HPF Urine Crystals NONE /LPF Urine Bacteria LARGE H /HPF Urine Casts NONE /LPF Urine Mucus NEGATIVE /LPF Urine Culture Indicated YES Urine Opiates Screen NEGATIVE NEGATIVE Urine Oxycodone Screen NEGATIVE NEGATIVE Urine Methadone Screen NEGATIVE NEGATIVE Urine Propoxyphene Screen NEGATIVE NEGATIVE Urine Barbiturates Screen NEGATIVE NEGATIVE Ur Tricyclic Antidepressants Screen NEGATIVE NEGATIVE Urine Phencyclidine Screen NEGATIVE NEGATIVE Urine Amphetamines Screen POSITIVE H NEGATIVE Urine Methamphetamines Screen POSITIVE H NEGATIVE Urine Benzodiazepines Screen NEGATIVE NEGATIVE Urine Cocaine Screen NEGATIVE NEGATIVE Urine Cannabinoids Screen NEGATIVE NEGATIVE Lactic Acid Level 0.89 0.50-2.00 MMOL/L (AMBROSIO POLANCO MD) My Orders Orders - AMBROSIO POLANCO MD Lactic Acid Analyzer (06/07/22 12:08) Blood Culture (06/07/22 12:08) Fentanyl Inj (Sublimaze Injection) (06/07/22 12:16) Drug Screen Stat (Urine) (06/07/22 12:18) Ceftriaxone 1 Gm Pre-Mix (Rocephin 1 Gm (06/07/22 14:08) Ed Admission (Communication) (06/07/22 14:16) (AMBROSIO POLANCO MD) Medications Given in ED Current Medications Medications Dose Ordered Sig/Sy Route Start Time Stop Time Status Last Admin Dose Admin Diatrizoate Meglum/ Diatrizoate Sod 30 ml ONCE ONCE PO 06/07/22 11:15 06/07/22 11:16 DC 06/07/22 13:32 30 ML Diphenhydramine HCl 25 mg ONCE ONCE IVP 7/25/22 09:45 06/07/22 09:46 DC 06/07/22 10:17 25 MG Fentanyl Citrate 50 mcg ONCE ONCE IVP 06/07/22 09:00 06/07/22 09:01 DC 06/07/22 09:07 50 MCG Fentanyl Citrate 50 mcg ONCE ONCE IVP 06/07/22 12:30 06/07/22 12:31 DC 06/07/22 12:35 50 MCG Iohexol 100 ml ONCE ONCE IV 06/07/22 11:15 06/07/22 11:16 DC 06/07/22 13:25 100 ML Methylprednisolone Sodium Succinate 125 mg ONCE ONCE IVP 06/07/22 09:45 06/07/22 09:46 DC 06/07/22 10:18 125 MG Ondansetron HCl 8 mg ONCE ONCE IVP 06/07/22 09:00 06/07/22 09:01 DC 06/07/22 09:01 8 MG Pantoprazole 40 mg ONCE ONCE IV 06/07/22 09:00 06/07/22 09:01 DC 06/07/22 09:04 40 MG Sodium Chloride 10 ml NEEDED PRN IV 06/07/22 11:15 06/07/22 13:25 10 ML Sodium Chloride 100 ml ONCE ONCE IV 06/07/22 11:15 06/07/22 11:16 DC 06/07/22 13:25 80 ML (AMBROSIO POLANCO MD) Vital Signs/I&O 06/07/22 08:22 Temp 36.0 Pulse 69 Resp 12 B/P (MAP) 129/100 (110) Pulse Ox 96 O2 Delivery Nasal Cannula O2 Flow Rate 2.00 (AMBROSIO POLANCO MD) Blood Pressure Mean: 110 Progress Progress Note : Time: 12:25 Progress Note Patient was treated with Zofran and fentanyl. There is concern for small bowel obstruction given the history she has stated in the context of numerous abdominal surgeries. I discussed with Dr. Khalil. He preferred a CT scan with oral and IV contrast due to the potential complicated nature of this case. He advised placing an NG tube prior to the oral contrast. This was attempted twice by nursing staff and once by myself. This was unsuccessful. It caused significant discomfort choking, gagging, and anxiety. NG efforts were abandoned. Patient is trying the oral contrast without NG tube. CT scan will be performed after that. She has been pretreated for IV contrast with Benadryl and Solu-Medrol. Care of this patient is being transitioned to Dr. Polanco at this time. Patient was noted to have a UTI which will be addressed by Dr. POLANCO. (CHARLIE SU MD) Progress Note : Progress Note 1225: I have assumed care of the patient from Dr. Guthrie pending CT scan. She is just now completing her oral contrast. Reexamination reveals rather tender and tight right sided abdomen which patient is concerned for bowel herniation. She states that she has had it before. She reports vomiting and states her vomit smells like fecal matter. Fentanyl 50 mcg IV ordered for pain. Pending CT scans after oral contrast completion. Monitor patient 1404: Dr. Arroyo paged for admission. 1406: I did discuss the case with Dr. Khalil and he will see the patient in consult. We will initiate treatment for UTI with Rocephin 1 g IV being ordered now. Monitor patient. 1415: Case discussed with Dr. Arroyo who accepts patient for admission and she will put in orders. (AMBROSIO POLANCO MD) Diagnostic Imaging Diagonstic Imaging: CT Plain Films/CT/US/NM/MRI: abdomen, pelvis Comments [facility] [place], [place] NAME: CLEOPATRA SHERIFF [facility] REC#: [id number] PT STATUS: REG ER : 1965 PHYSICIAN: CHARLIE SU MD ADMIT DATE: 06/07/22/ER Draft Date of Exam:06/07/22 CT ABDOMEN/PELVIS W PROCEDURE: CT abdomen and pelvis with contrast. TECHNIQUE: Multiple contiguous axial images were obtained through the abdomen and pelvis after administration of intravenous contrast. Auto Exposure Controls were utilized during the CT exam to meet ALARA standards for radiation dose reduction. All CT scans use one or more of the following dose optimizing techniques: automated exposure control, MA and/or KvP adjustment based on patient size and exam type or iterative reconstruction. INDICATION: Abdominal pain. COMPARISON: 12/08/2021. FINDINGS: Hepatic steatosis is again identified. The gallbladder is distended without evidence of surrounding inflammation. There is no evidence of biliary ductal dilatation. No pancreatic, adrenal gland, or splenic lesion is identified. There has been reduction in the left renal calculi with a small nonobstructing stone present in the midportion. There is no hydronephrosis. The large right anterior abdominal wall hernia containing small and large bowel is again demonstrated. There is no definite obstruction. The stomach is distended with contrast material. There is partial opacification of small bowel loops. Stool and fluid are present throughout the colon. There is an area of increased density in the right lower quadrant which may represent an area of abdominal wall musculature. Gas is present within the lumen of the urinary bladder with a Law catheter. Note is made of an ovoid mass projecting to the right of the uterine fundus measuring approximately 7.9 x 5.9 cm. No definite change is seen. IMPRESSION: Large right anterior abdominal wall hernia without definite site of obstruction appreciated. There has been reduction in the left renal stone burden with small residual fragments without obstruction. The fundal lesion in the uterus is similar to the previous study may represent a fibroid. Dictated on workstation # [id number] Dict: 06/07/22 1336 Trans: 06/07/22 1350 [id number] Interpreted by: CALE SMITH MD Electronically signed by: (AMBROSIO POLANCO MD) Departure Impression Primary Impression: UTI (urinary tract infection) Qualified Codes: N30.00 - Acute cystitis without hematuria Additional Impressions: Right sided abdominal pain Abdominal wall hernia Disposition: ADMITTED INPATIENT Condition: Stable Admissions Decision to Admit Reason: Admit from ER (General) Decision to Admit/Date: Jun 07, 2022 Time/Decision to Admit Time: 14:04 (AMBROSIO POLANCO MD) Departure-Patient Inst. Referrals: [facility] (PCP/Family) Primary Care Physician CHARLIE SU MD Jun 07, 2022 08:53 AMBROSIO POLANCO MD Jun 07, 2022 13:12
[2022-06-07] MEDS ORDERED: PANTOPRAZOLE 40 MG (PROTONIX) VIAL IV ONE (09:00)
[2022-06-07] MEDS ORDERED: ONDANSETRON 4 MG/2 ML (SDV) Z0FRAN IVP ONE (09:00)
[2022-06-07] MEDS ORDERED: fentaNYL INJ 100 MCG/2 ML AMP IVP ONE ×2 (09:00→12:30)
[2022-06-07 09:03] LABS: ALBUMIN 3.9 GM/DL (3.2-4.5)
[2022-06-07 09:05] LABS: CALCIUM 9.5 MG/DL (8.5-10.1)
[2022-06-07 09:06] LABS: TOTAL PROTEIN 7.2 GM/DL (6.4-8.2)
[2022-06-07 09:08] LABS: BILIRUBIN,TOTAL 0.8 MG/DL (0.1-1.0)
[2022-06-07 09:10] LABS: CREATININE SERUM 0.73 MG/DL (0.60-1.30)
[2022-06-07] MEDS ORDERED: methylPREDNISolone 125 MG (Solu-MEDROL) VIAL IVP ONE (09:45)
[2022-06-07] MEDS ORDERED: diphenhydrAMINE 50 MG/ML INJ (BENADRYL) IVP ONE (09:45)
[2022-06-07] MEDS ORDERED: NS 100 ML (IVPB) BAG IV ONE (11:15)
[2022-06-07] MEDS ORDERED: DIATRIZOATE MEGLUM/SODIUM 37% 120 ML (GASTROGRAFIN) PO ONE (11:15)
[2022-06-07] MEDS ORDERED: IOHEXOL 350 MG/ML 100 ML (OMNIPAQUE 350) VIAL IV ONE (11:15)
[2022-06-07] MEDS ORDERED: CATHETER FLUSH 10 ML SYR IV PRN (11:15)
[2022-06-07] MEDS ORDERED: HOLD METFORMIN - RECEIVED CONTRAST 20 ML VIAL IV SCH (11:15)
[2022-06-07 11:26] LABS: BILIRUBIN,URINE NEGATIVE (NEGATIVE); CLARITY,URINE CLOUDY; COLOR,URINE YELLOW; GLUCOSE, URINE (UA) NEGATIVE (NEGATIVE); KETONES,URINE NEGATIVE (NEGATIVE); LEUKOCYTE ESTERASE ,URINE 1+ (NEGATIVE); NITRITE,URINE POSITIVE (NEGATIVE); PROTEIN,URINE TRACE (NEGATIVE)
[2022-06-07 12:01] LABS: BACTERIA,URINE LARGE /HPF; SQUAMOUS EPITHELIAL CELL,UR RARE /HPF; WBC,URINE 50-100 /HPF
[2022-06-07] MEDS ORDERED: fentaNYL INJ 100 MCG/2 ML AMP IVP STA (12:16)
[2022-06-07 12:39] LABS: AMPHETAMINE SCREEN, URINE POSITIVE (NEGATIVE); BARBITURATE SCREEN URINE NEGATIVE (NEGATIVE); BENZODIAZEPINES SCREEN URINE NEGATIVE (NEGATIVE); CANNABINOID SCREEN, URINE NEGATIVE (NEGATIVE); COCAINE SCREEN URINE NEGATIVE (NEGATIVE); METHADONE STAT NEGATIVE (NEGATIVE); OPIATE SCREEN URINE NEGATIVE (NEGATIVE); OXYCODONE STAT NEGATIVE (NEGATIVE); PROPOXYPHENE STAT NEGATIVE (NEGATIVE); TRICYCLIC ANTIDEPRESSANTS SCRE NEGATIVE (NEGATIVE)
--- NOTE | 2022-06-07 13:51 | Diagnostic Imaging Report ---
PROCEDURE: CT abdomen and pelvis with contrast. TECHNIQUE: Multiple contiguous axial images were obtained through the abdomen and pelvis after administration of intravenous contrast. Auto Exposure Controls were utilized during the CT exam to meet ALARA standards for radiation dose reduction. All CT scans use one or more of the following dose optimizing techniques: automated exposure control, MA and/or KvP adjustment based on patient size and exam type or iterative reconstruction. INDICATION: Abdominal pain. COMPARISON: 12/08/2021. FINDINGS: Hepatic steatosis is again identified. The gallbladder is distended without evidence of surrounding inflammation. There is no evidence of biliary ductal dilatation. No pancreatic, adrenal gland, or splenic lesion is identified. There has been reduction in the left renal calculi with a small nonobstructing stone present in the midportion. There is no hydronephrosis. The large right anterior abdominal wall hernia containing small and large bowel is again demonstrated. There is no definite obstruction. The stomach is distended with contrast material. There is partial opacification of small bowel loops. Stool and fluid are present throughout the colon. There is an area of increased density in the right lower quadrant which may represent an area of abdominal wall musculature. Gas is present within the lumen of the urinary bladder with a Law catheter. Note is made of an ovoid mass projecting to the right of the uterine fundus measuring approximately 7.9 x 5.9 cm. No definite change is seen. IMPRESSION: Large right anterior abdominal wall hernia without definite site of obstruction appreciated. There has been reduction in the left renal stone burden with small residual fragments without obstruction. The fundal lesion in the uterus is similar to the previous study may represent a fibroid. Dictated by: Dictated on workstation # [id number]
[2022-06-07] MEDS ORDERED: cefTRIAXone 1 GM PRE-MIX 50 ML IV STA (14:08)
--- NOTE | 2022-06-07 16:02 | History & Physical-Hospitalist ---
COMFORTVivekYOVANNY FLORES 06/07/22 1602: History of Present Illness HPI/Chief Complaint Yomaira Merino is a 56-year-old woman with past medical history of abdominal hernia with multiple repair surgeries, T2DM, kidney stones, obesity, afib on Eliquis, and meth use who was admitted for abdominal pain, nausea, and vomiting that started last night. She reports her emesis has the appearance and smell of stool. She states she has had 6-8 surgeries in total for hernia treatments. She has also had cyst removals and appendectomy. She has history of significant k idney stones as well for which she has received laser therapy and ureteral stent placement and removal. She gets treatment for her ureteral stones at by Dr. Conley. She has had recent hematuria or bleeding from the perineal area noted on clothing changes as well. She has not had any fever. She uses nasal cannula chronically in her mouth as she is a mouth breather. She weighs approximately 330 pounds and is not ambulatory. She reports a significant weight loss of approximately 150 pounds in the last year or so in an effort to "get healthy". She also has a history of substance abuse and admits to using methamphetamines about a month ago. She reports a contrast dye allergy but states she has successfully received contrast dye after pretreatment with Benadryl and steroids. Jeff Barth is her primary care provider. She did not take her medications last night or this morning. She is currently sleeping in bed and difficult to waken. She denies any current nausea, but continues to have abdominal pain though this has improved since her arrival. Source: patient, old records Exam Limitations: other (Caregiver not in room, patient somnolent) Date Seen 06/07/22 Time Seen by a Provider: 04:00 Attending Physician [place] PCP Admitting Physician: Katharina Arroyo DO Attending Physician: Katharina Arroyo DO Referring Physician Date of Admission Jun 07, 2022 at 14:17 Home Medications & Allergies Home Medications Reviewed patient Home Medication Reconciliation performed by pharmacy medication reconciliations certified hyperbaric technician and/or nursing. Patients Allergies have been reviewed. Allergies Allergies Coded Allergies latex (Verified Allergy, Intermediate, RASH, ITCHING, 03/02/11) vancomycin (Verified Allergy, Intermediate, HIVES, 03/02/11) iodine (Verified Allergy, Mild, "ILL", 03/02/11) lorazepam (Verified Allergy, Unknown, 07/12/17) phenobarbital (Verified Allergy, Unknown, 03/09/06) phenytoin (Verified Allergy, Unknown, 07/12/17) Past Mdxhlla-Lsniki-Xjjrwk Hx Patient Social History Tobacco Use?: Yes Smoking Status: Former Smoker Use of E-Cig and/or Vaping dev: Yes E-Cig or Vaping type used: Nicotine Use of E-Cig and/or Vaping Kurtis: Current Everyday User Substance use?: Yes Substance type: Methamphetamine Substance frequency: Several times a month Alcohol Use?: No Current Status Advance Directives: Unable to obtain Communicates: Verbally Primary Language: Senegalese Preferred Spoken Language: Senegalese Is interpretation needed?: No Implanted or Applied Medical D: None Past Medical History Surgeries: Abdominal, Appendectomy, Cardiac, Section Sleep Apnea, COPD Atrial Fibrillation, Chronic Edema/Swelling, Heart Attack, High Cholesterol, Hypertension Seizure Disorder Abdominal Hernia, Gastroesophageal Reflux Diabetes, Non-Insulin dep Anxiety, Depression Blood Disorders: No PMHx: High blood sugar- likely diabetes, but reports no formal diagnosis Seizure disorder HTN GERD Anxiety/depression SurgHx: C section 7 abdominal surgeries for hernias Family Medical History Alzheimer's disease 19 MOTHER Arthritis 19 MOTHER Asthma 19 FATHER 19 MOTHER Colon cancer 19 MOTHER Completed stroke 19 FATHER 19 MOTHER Deafness or hearing loss Dementia 19 MOTHER Diabetes mellitus 19 FATHER Glaucoma 19 FATHER 19 MOTHER Hypertension 19 FATHER 19 MOTHER Myocardial infarction 19 FATHER 19 MOTHER Respiratory disorder 19 MOTHER Cancer, Diabetes SOCIAL HISTORY: -ETOH--RARE USE -DRUGS--THC, COCAINE (SNORTS IT), METHAMPHETAMINE (SNORTS IT)--ON 03/02/21 CLAIMS "NO DRUGS FOR 13 YEARS" BUT TESTED + FOR METHAPMPHETAMINES -SMOKES 3 PPD, NOW "VAPES" PAST SURGICAL HISTORY: -EXPLORATORY LAPAROTOMY FOR OVARIAN CYST -MULTIPLE HERNIA REPAIRS--5 OR 6 SURGERIES - X 2 -CARDIAC ABLATION FOR ATRIAL FIBRILLATION PT IS NON-MOBILE AND BED-BOUND AND REQUIRES A GILBERTO LIFT FOR TRANSFERS TO WHEELCHAIR PT REQUIRES 2 --24 HOUR CAREGIVERS WITH HER AT ALL TIMES. Review of Systems ROS-Unable to Obtain: Patient unable to answer questions Physical Exam Physical Exam Vital Signs Vital Signs - First Documented 06/07/22 08:22 Temp 36.0 Pulse 69 Resp 12 B/P (MAP) 129/100 (110) Pulse Ox 96 O2 Delivery Nasal Cannula O2 Flow Rate 2.00 Capillary Refill : Height, Weight, BMI Height: 5'4.00" Weight: 396lbs. 0.0oz. [id number]; 56.00 BMI Method:Estimated General Appearance: Mild Distress, Obese HEENT: PERRL/EOMI, Moist Mucous Membranes Neck: Non Tender, Supple Respiratory: Chest Non Tender, Lungs Clear, Normal Breath Sounds Cardiovascular: Regular Rate, Rhythm, No JVD Gastrointestinal: Hernia (significant right sided abdominal hernia ), Tenderness (diffusly tender to light palpation) Extremity: Normal Capillary Refill, Non Tender, Pedal Edema (Pitting edema to the knee bilaterally) Neurologic/Psychiatric: Other (difficult to arouse) Skin: Normal Color, Warm/Dry Lymphatic: No Adenopathy Results Results/Procedures Labs Laboratory Tests 06/07/22 08:40 Patient resulted labs reviewed. Assessment/Plan Admission Diagnosis 1) Partial Small Bowel Obstruction * CT abdomen/ pelvis with contrast: Large right anterior abdominal wall hernia without definite site of obstruction appreciated * Surgery following, appreciate recs * NPO * IVF and monitor electrolytes * Supportive measures 2) UTI * Dose of Ceftriaxone 1g in ED * Hx of Proteus UTI in November of this year * Hx of Kidney stones s/p laser therapy and ureteral stent placement and removal * Consider TMP/SMX 3) T2DM * SSI 4) Afib * Continue Eliquis Dipso: Admit to fourth floor for further medical management. KATHARINA ARROYO 06/08/221: History of Present Illness HPI/Chief Complaint CC: Abd pain with UTI HPI: This is a morbid obesity who presents with UTI and abdominal pain from hernia. Surgery evaluated the hernia and found no urgent surgery need. Source: patient Exam Limitations: no limitations Past Qdfskpu-Rbyxqy-Oqxhio Hx Family Medical History Alzheimer's disease 19 MOTHER Arthritis 19 MOTHER Asthma 19 FATHER 19 MOTHER Colon cancer 19 MOTHER Completed stroke 19 FATHER 19 MOTHER Deafness or hearing loss Dementia 19 MOTHER Diabetes mellitus 19 FATHER Glaucoma 19 FATHER 19 MOTHER Hypertension 19 FATHER 19 MOTHER Myocardial infarction 19 FATHER 19 MOTHER Respiratory disorder 19 MOTHER Review of Systems Constitutional: no symptoms reported Physical Exam Physical Exam General Appearance: No Apparent Distress, Chronically ill, Obese Respiratory: Chest Non Tender, Lungs Clear, Normal Breath Sounds, No Accessory Muscle Use, No Respiratory Distress Cardiovascular: Regular Rate, Rhythm, No Edema, No Gallop, No JVD, No Murmur, Normal Peripheral Pulses Assessment/Plan Admission Diagnosis UTI Meth use Obesity Hernia Admission Status: Observation Diagnosis/Problems Diagnosis/Problems (1) UTI (urinary tract infection) Status: Acute Qualifiers: Urinary tract infection type: acute cystitis Hematuria presence: without hematuria Qualified Codes: N30.00 - Acute cystitis without hematuria (2) Abdominal wall hernia Status: Acute Supervisory-Addendum Brief Verification & Attestation Participated in pt care: history, MDM, physical Personally performed: exam, history, MDM, supervision of care Care discussed with: Medical Student Procedures: n/a Results interpretation: Verified all documentation Verification and Attestation of Medical Student E/M Service A medical student performed and documented this service in my presence. I reviewed and verified all information documented by the medical student and made modifications to such information, when appropriate. I personally performed the physical exam and medical decision making. Katharina Arroyo, Jun 08, 2022,21:01 YOVANNY COPELAND Jun 07, 2022 16:02 KATHARINA ARROYO DO Jun 08, 2022 21:01
--- NOTE | 2022-06-07 16:10 | Consultation - Surgery ---
HARKINSJESSICA Larisa 06/07/22 1610: History of Present Illness History of Present Illness Patient Consulted On(mandie/time) 06/07/22 16:06 Date Seen by Provider: Jun 07, 2022 Time Seen by Provider: 15:14 Reason for Visit: Abdominal pain History of Present Illness Ms. Sheriff is a 56 year old female with a past medical history significant for kidney stones, atrial fibrillation, diabetes, hypertension, and multiple abdominal hernias presented to the ED with a chief complaint of abdominal pain. Patient was somnolent and awoke at times; the majority of the history was provided by her caregiver. Patient's caregiver reports that she has had abdominal pain going on for 3-4 days which has been progressively getting worse. She reports her stomach has been getting more distended over this time period. She described the pain as both sharp and crampy at times. She endorses associated nausea, vomiting, and diarrhea. She says nothing makes her pain any better and nothing makes her pain any worse. She reports her pain was initially in her RUQ, radiated to her LLQ, then eventually encompassed her entire abdomen. She reports that she has a history of 8-9 abdominal hernia surgeries and a history of 2 complete bowel obstructions both requiring surgery. Allergies and Home Medications Allergies Coded Allergies: latex (Verified Allergy, Intermediate, RASH, ITCHING, 03/02/11) vancomycin (Verified Allergy, Intermediate, HIVES, 03/02/11) iodine (Verified Allergy, Mild, "ILL", 03/02/11) lorazepam (Verified Allergy, Unknown, 07/12/17) phenobarbital (Verified Allergy, Unknown, 03/09/06) phenytoin (Verified Allergy, Unknown, 07/12/17) Patient Home Medication List Albuterol Sulfate (Albuterol Sulfate) 2.5 Mg/3 Ml Vial.neb, 2.5 MG NEB Q4H PRN for SHORTNESS OF BREATH, (Reported) Entered as Reported by: CHARISSA PAYAN on 07/13/17 1051 Apixaban (Eliquis) 5 Mg Tablet, 5 MG PO BID, (Reported) Entered as Reported by: RADU CASTILLO on 05/11/21 1142 Atorvastatin Calcium (Atorvastatin Calcium) 40 Mg Tablet, 40 MG PO DAILY, (Reported) Entered as Reported by: RADU CASTILLO on 05/11/21 1142 Cefdinir (Cefdinir) 300 Mg Capsule, 300 MG PO BID Prescribed by: WOOD ORTIZ on 12/03/21 1548 Docusate Sodium (Stool Softener) 100 Mg Tablet, 100-200 MG PO BID PRN for CONSTIPATION-1ST LINE, (Reported) Entered as Reported by: RADU CASTILLO on 05/11/21 1142 Ergocalciferol (Vitamin D2) (Vitamin D2) 1,250 Mcg Capsule, 1,250 MCG PO FRI, (Reported) Entered as Reported by: RADU CASTILLO on 05/11/21 1142 Fluticasone Propion/Salmeterol (Fluticasone-Salmeterol 250-50) 1 Each Blst.w.dev, 1 PUFF INH BID PRN for SHORTNESS OF BREATH, (Reported) Entered as Reported by: RADU CASTILLO on 05/11/21 1142 Fluticasone Propionate (Flonase Allergy Relief) 9.9 Ml [place].susp, 1 SPRAY NSEACH BID PRN for CONGESTION, (Reported) Entered as Reported by: RADU CASTILLO on 05/11/21 1142 Furosemide (Furosemide) 40 Mg Tablet, 40 MG PO BID, (Reported) Entered as Reported by: CHARISSA PAYAN on 07/13/17 1051 Hydrocodone Bit/Acetaminophen (HYDROcodone/APAP 10/325 TABLET) 1 Ea Tab, 1-2 EA PO Q6H PRN for pain Prescribed by: WOOD ORTIZ on 12/03/21 1548 Hydroxyzine Pamoate (Hydroxyzine Pamoate) 25 Mg Capsule, 25 MG PO HS PRN for ANXIETY, (Reported) Entered as Reported by: CHARISSA PAYAN on 07/13/17 1053 Metformin HCl (Metformin HCl) 1,000 Mg Tablet, 1,000 MG PO BID, (Reported) Entered as Reported by: RADU CASTILLO on 05/11/21 1142 Metoprolol Succinate (Metoprolol Succinate) 25 Mg Tab.er.24h, 25 MG PO DAILY, (Reported) Entered as Reported by: RADU CASTILLO on 05/11/21 1142 Ondansetron (Ondansetron Odt) 4 Mg Tab.rapdis, 4-8 MG PO Q6H PRN for NAUSEA/VOMITING Prescribed by: WOOD ORTIZ on 12/03/21 1548 Oxycodone HCl/Acetaminophen (Percocet 10-325 mg Tablet) 1 Each Tablet, 1 TAB PO Q4H PRN for PAIN Prescribed by: RAQUEL WEEMS on 12/08/21 1458 Oxycodone Hcl (Oxyir Tablet) 5 Mg Tab, 5 MG PO Q8H PRN for PAIN-MODERATE (5-7) Prescribed by: VALERI ARROYO on 05/13/21 1115 Pantoprazole Sodium (Pantoprazole Sodium) 20 Mg Tablet.dr, 20 MG PO DAILY, (Reported) Entered as Reported by: RADU CASTILLO on 05/11/21 1142 Potassium Chloride (Klor-Con M20) 20 Meq Tab.er.prt, 20 MEQ PO BID, (Reported) Entered as Reported by: RADU CASTILLO on 05/11/21 1147 Sertraline HCl (Sertraline HCl) 100 Mg Tablet, 100 MG PO DAILY, (Reported) Entered as Reported by: RADU CASTILLO on 05/11/21 1142 Silver Sulfadiazine (Ssd) 25 Gm Cream..g., 1 APPLIC TOP BID PRN for SKIN IRRITATION, (Reported) Entered as Reported by: RADU CASTILLO on 05/11/21 1142 Sumatriptan Succinate (Sumatriptan Succinate) 50 Mg Tablet, 50 MG PO UD PRN for MIGRAINE, (Reported) Entered as Reported by: RADU CASTILLO on 05/11/21 1142 [oxy] Prescribed by: RAQUEL WEEMS on 12/08/21 1456 Past Qijljig-Lgyzwz-Dxdlfa Hx Patient Social History Smoking Status: Current Everyday Smoker (Smokes 1/4 PPD for 53 years) Type Used: Cigarettes Alcohol Use?: No Substance type: Methamphetamine Have you traveled recently?: Unable to obtain Surgeries History of Surgeries: Yes (LAPAROTOMY, C-SECTIONS, HERNIA REPAIR x 8-9, CARDIAC ABLATION) Surgeries: Abdominal, Appendectomy, Cardiac, Section Respiratory History of Respiratory Disorde: Yes (CHRONIC RESPIRATORY FAILURE) Respiratory Disorders: Sleep Apnea, COPD Cardiovascular History of Cardiac Disorders: Yes Cardiac Disorders: Atrial Fibrillation, Chronic Edema/Swelling, Heart Attack, High Cholesterol, Hypertension Neurological History of Neurological Disord: Yes Neurological Disorders: Seizure Disorder Reproductive System : No Hx Reproductive Disorders: Yes Female Reproductive Disorders: Ovarian Cyst Genitourinary History of Genitourinary Disor: No Gastrointestinal History of Gastrointestinal Di: Yes (VENTRAL HERNIA) Gastrointestinal Disorders: Abdominal Hernia, Gastroesophageal Reflux Musculoskeletal History of Musculoskeletal Dis: Yes (NON-MOBILE/BED BOUND DUE TO MORBID OBESITY) Endocrine History of Endocrine Disorders: Yes (MORBID OBESITY) Endocrine Disorders: Diabetes, Insulin dep HEENT History of HEENT Disorders: No Cancer History of Cancer: No Psychosocial History of Psychiatric Problem: Yes Behavioral Health Disorders: Anxiety, Depression Integumentary History of Skin or Integumenta: No Blood Transfusions History of Blood Disorders: No Family Medical History Significant Family History: Cancer, Diabetes Family Medial History: Alzheimer's disease 19 MOTHER Arthritis 19 MOTHER Asthma 19 FATHER 19 MOTHER Colon cancer 19 MOTHER Completed stroke 19 FATHER 19 MOTHER Deafness or hearing loss Dementia 19 MOTHER Diabetes mellitus 19 FATHER Glaucoma 19 FATHER 19 MOTHER Hypertension 19 FATHER 19 MOTHER Myocardial infarction 19 FATHER 19 MOTHER Respiratory disorder 19 MOTHER Review of Systems-General Constitutional: No chills, No fever EENTM: No blurred vision, No double vision Respiratory: No cough, No short of breath Cardiovascular: No chest pain, No palpitations Gastrointestinal: abdominal pain, diarrhea, nausea, vomiting Genitourinary: dysuria, frequency, pain Physical Exam-General Problems Physical Exam Vital Signs Vital Signs - First Documented 06/07/22 08:22 Temp 36.0 Pulse 69 Resp 12 B/P (MAP) 129/100 (110) Pulse Ox 96 O2 Delivery Nasal Cannula O2 Flow Rate 2.00 Capillary Refill : General Appearance: no apparent distress (Patient drifting in and out of sleep during encounter), obese HEENT: PERRL/EOMI; No pale conjunctivae (R), No pale conjunctivae (L) Neck: non-tender, supple Respiratory: chest non-tender, lungs clear (Anterior posts only), no respiratory distress, no accessory muscle use Cardiovascular: normal peripheral pulses, regular rate, rhythm, no murmur Peripheral Pulses: 2+ Radial Pulses (R), 2+ Radial Pulses (L) Gastrointestinal: normal bowel sounds, distended (Extremely distended), guarding (Voluntary), tenderness (Exquisite tenderness to palpation to entire abdomen with even more tenderness on the right side), hernia, mass Extremities: pedal edema (3+ pitting edema), swelling Neurologic/Psychiatric: alert, oriented x 3, other (Somnolent but arousable) Skin: normal color, warm/dry Data Review Labs Laboratory Tests 06/07/22 08:40: White Blood Count 9.8, Red Blood Count 4.77, Hemoglobin 14.8, Hematocrit 46, Mean Corpuscular Volume 96, Mean Corpuscular Hemoglobin 31, Mean Corpuscular Hemoglobin Concent 32, Red Cell Distribution Width 13.3, Platelet Count 200, Mean Platelet Volume 9.1, Immature Granulocyte % (Auto) 0, Neutrophils (%) (Auto) 78H, Lymphocytes (%) (Auto) 16, Monocytes (%) (Auto) 5, Eosinophils (%) (Auto) 1, Basophils (%) (Auto) 0, Neutrophils # (Auto) 7.6, Lymphocytes # (Auto) 1.5, Monocytes # (Auto) 0.5, Eosinophils # (Auto) 0.1, Basophils # (Auto) 0.0, Immature Granulocyte # (Auto) 0.0, Sodium Level 140, Potassium Level 4.0, Chloride Level 102, Carbon Dioxide Level 28, Anion Gap 10, Blood Urea Nitrogen 9, Creatinine 0.73, Estimat Glomerular Filtration Rate 95, BUN/Creatinine Ratio 12, Glucose Level 136H, Calcium Level 9.5, Corrected Calcium 9.6, Total Bilirubin 0.8, Aspartate Amino Transf (AST/SGOT) 21, Alanine Aminotransferase (ALT/SGPT) 24, Alkaline Phosphatase 109, C-Reactive Protein High Sensitivity 1.36H, Total Protein 7.2, Albumin 3.9, Lipase 11 06/07/22 11:14: Urine Color YELLOW, Urine Clarity CLOUDY, Urine pH 6.0, Urine Specific Tea >=1.030, Urine Protein TRACEH, Urine Glucose (UA) NEGATIVE, Urine Ketones NEGATIVE, Urine Nitrite POSITIVEH, Urine Bilirubin NEGATIVE, Urine Urobilinogen 0.2, Urine Leukocyte Esterase 1+H, Urine RBC (Auto) 1+H, Urine RBC 2-5H, Urine WBC 50-100H, Urine Squamous Epithelial Cells RARE, Urine Crystals NONE, Urine Bacteria LARGEH, Urine Casts NONE, Urine Mucus NEGATIVE, Urine Culture Indicated YES, Urine Opiates Screen NEGATIVE, Urine Oxycodone Screen NEGATIVE, Urine Methadone Screen NEGATIVE, Urine Propoxyphene Screen NEGATIVE, Urine Barbiturates Screen NEGATIVE, Ur Tricyclic Antidepressants Screen NEGATIVE, Urine Phencyclidine Screen NEGATIVE, Urine Amphetamines Screen POSITIVEH, Urine Methamphetamines Screen POSITIVEH, Urine Benzodiazepines Screen NEGATIVE, Urine Cocaine Screen NEGATIVE, Urine Cannabinoids Screen NEGATIVE 06/07/22 13:55: Lactic Acid Level 0.89 Radiology NAME: CLEOPATRA SHERIFF [facility] REC#: [id number] PT STATUS: REG ER : 1965 PHYSICIAN: CHARLIE SU MD ADMIT DATE: 06/07/22/ER Draft Date of Exam:06/07/22 CT ABDOMEN/PELVIS W PROCEDURE: CT abdomen and pelvis with contrast. TECHNIQUE: Multiple contiguous axial images were obtained through the abdomen and pelvis after administration of intravenous contrast. Auto Exposure Controls were utilized during the CT exam to meet ALARA standards for radiation dose reduction. All CT scans use one or more of the following dose optimizing techniques: automated exposure control, MA and/or KvP adjustment based on patient size and exam type or iterative reconstruction. INDICATION: Abdominal pain. COMPARISON: 12/08/2021. FINDINGS: Hepatic steatosis is again identified. The gallbladder is distended without evidence of surrounding inflammation. There is no evidence of biliary ductal dilatation. No pancreatic, adrenal gland, or splenic lesion is identified. There has been reduction in the left renal calculi with a small nonobstructing stone present in the midportion. There is no hydronephrosis. The large right anterior abdominal wall hernia containing small and large bowel is again demonstrated. There is no definite obstruction. The stomach is distended with contrast material. There is partial opacification of small bowel loops. Stool and fluid are present throughout the colon. There is an area of increased density in the right lower quadrant which may represent an area of abdominal wall musculature. Gas is present within the lumen of the urinary bladder with a Law catheter. Note is made of an ovoid mass projecting to the right of the uterine fundus measuring approximately 7.9 x 5.9 cm. No definite change is seen. IMPRESSION: Large right anterior abdominal wall hernia without definite site of obstruction appreciated. There has been reduction in the left renal stone burden with small residual fragments without obstruction. The fundal lesion in the uterus is similar to the previous study may represent a fibroid. Dictated on workstation # [id number] Dict: 06/07/22 1336 Trans: 06/07/22 1350 [id number] Interpreted by: CALE SMITH MD Electronically signed by: Assessment/Plan Assessment/Plan Assessment/Plan Abdominal pain Abdominal hernia with loss of domain Very large right-sided abdominal hernia with no evidence of obstruction H/o multiple abdominal surgeries and hernia repairs H/o 2 complete bowel obstructions requiring surgical management Nausea and vomiting Nephrolithiasis UTI Hematuria Elevated CRP Methamphetamine use disorder Plan to make patient NPO and provide IVF Anti-emetics as needed Abx for UTI Patient is not a candidate for surgical repair at this time unless she were to become completely obstructed and would require emergent surgical intervention Conservative management preferred JORDAN LEE DO 06/07/22 2200: History of Present Illness History of Present Illness History of Present Illness Consult requested by Dr. Arroyo for abdominal pain. Patient is a 56-year-old female who presented to the emergency department today after began having abdominal pain yesterday. She states that the pain is constant and getting worse. She is having nausea and vomiting and feculent-like emesis she states. She states that she was passing gas yesterday but not today but she did have a bowel movement this morning. She states that her pain is a 10 out of 10. Patient states that she is bed ridden and has 24-hour help. She states the pain is constant sharp and occasionally crampy type pain. Nothing seems to make better or worse. She does state that she has been working on getting healthier and has lost approximately 150 pounds recently. She also sta prashanth that she last used meth about a month ago. Her drug screen is positive today. She states she had a sleeve gastrectomy approximately 3 to 4 years ago and she has been working with discussing possible gastric bypass. She is also seen the before for her hernias and she was told she needed to lose more weight before proceeding. Patient had a CT scan that demonstrated:Large right anterior abdominal wall hernia without definite site of obstruction appreciated.There has been reduction in the left renal stone burden with small residual fragments without obstruction.The fundal lesion in the uterus is similar to the previous study may represent a fibroid. Allergies and Home Medications Allergies Coded Allergies: latex (Verified Allergy, Intermediate, RASH, ITCHING, 03/02/11) vancomycin (Verified Allergy, Intermediate, HIVES, 03/02/11) iodine (Verified Allergy, Mild, "ILL", 03/02/11) lorazepam (Verified Allergy, Unknown, 07/12/17) phenobarbital (Verified Allergy, Unknown, 03/09/06) phenytoin (Verified Allergy, Unknown, 07/12/17) Patient Home Medication List Home Medication List Reviewed: Yes Albuterol Sulfate (Albuterol Sulfate) 2.5 Mg/3 Ml Vial.neb, 2.5 MG NEB Q4H PRN for SHORTNESS OF BREATH, (Reported) Entered as Reported by: CHARISSA PAYAN on 07/13/17 1051 Apixaban (Eliquis) 5 Mg Tablet, 5 MG PO BID, (Reported) Entered as Reported by: RADU CASTILLO on 05/11/21 1142 Atorvastatin Calcium (Atorvastatin Calcium) 40 Mg Tablet, 40 MG PO DAILY, (Reported) Entered as Reported by: RADU CASTILLO on 05/11/21 1142 Cefdinir (Cefdinir) 300 Mg Capsule, 300 MG PO BID Prescribed by: WOOD ORTIZ on 12/03/21 1548 Docusate Sodium (Stool Softener) 100 Mg Tablet, 100-200 MG PO BID PRN for CONSTIPATION-1ST LINE, (Reported) Entered as Reported by: RADU CASTILLO on 05/11/21 1142 Ergocalciferol (Vitamin D2) (Vitamin D2) 1,250 Mcg Capsule, 1,250 MCG PO FRI, (Reported) Entered as Reported by: RADU CASTILLO on 05/11/21 1142 Fluticasone Propion/Salmeterol (Fluticasone-Salmeterol 250-50) 1 Each Blst.w.dev, 1 PUFF INH BID PRN for SHORTNESS OF BREATH, (Reported) Entered as Reported by: RADU CASTILLO on 05/11/21 1142 Fluticasone Propionate (Flonase Allergy Relief) 9.9 Ml [place].susp, 1 SPRAY NSEACH BID PRN for CONGESTION, (Reported) Entered as Reported by: RADU CASTILLO on 05/11/21 1142 Furosemide (Furosemide) 40 Mg Tablet, 40 MG PO BID, (Reported) Entered as Reported by: CHARISSA PAYAN on 07/13/17 1051 Hydrocodone Bit/Acetaminophen (HYDROcodone/APAP 10/325 TABLET) 1 Ea Tab, 1-2 EA PO Q6H PRN for pain Prescribed by: WOOD ORTIZ on 12/03/21 1548 Hydroxyzine Pamoate (Hydroxyzine Pamoate) 25 Mg Capsule, 25 MG PO HS PRN for ANXIETY, (Reported) Entered as Reported by: CHARISSA PAYAN on 07/13/17 1053 Metformin HCl (Metformin HCl) 1,000 Mg Tablet, 1,000 MG PO BID, (Reported) Entered as Reported by: RADU CASTILLO on 05/11/21 1142 Metoprolol Succinate (Metoprolol Succinate) 25 Mg Tab.er.24h, 25 MG PO DAILY, (Reported) Entered as Reported by: RADU CASTILLO on 05/11/21 1142 Ondansetron (Ondansetron Odt) 4 Mg Tab.rapdis, 4-8 MG PO Q6H PRN for NAUSEA/VOMITING Prescribed by: WOOD ORTIZ on 12/03/21 1548 Oxycodone HCl/Acetaminophen (Percocet 10-325 mg Tablet) 1 Each Tablet, 1 TAB PO Q4H PRN for PAIN Prescribed by: RAQUEL WEEMS on 12/08/21 1458 Oxycodone Hcl (Oxyir Tablet) 5 Mg Tab, 5 MG PO Q8H PRN for PAIN-MODERATE (5-7) Prescribed by: VALERI ARROYO on 05/13/21 1115 Pantoprazole Sodium (Pantoprazole Sodium) 20 Mg Tablet.dr, 20 MG PO DAILY, (Reported) Entered as Reported by: RADU CASTILLO on 05/11/21 1142 Potassium Chloride (Klor-Con M20) 20 Meq Tab.er.prt, 20 MEQ PO BID, (Reported) Entered as Reported by: RADU CASTILLO on 05/11/21 1147 Sertraline HCl (Sertraline HCl) 100 Mg Tablet, 100 MG PO DAILY, (Reported) Entered as Reported by: RADU CASTILLO on 05/11/21 1142 Silver Sulfadiazine (Ssd) 25 Gm Cream..g., 1 APPLIC TOP BID PRN for SKIN IRRITATION, (Reported) Entered as Reported by: RADU CASTILLO on 05/11/21 1142 Sumatriptan Succinate (Sumatriptan Succinate) 50 Mg Tablet, 50 MG PO UD PRN for MIGRAINE, (Reported) Entered as Reported by: RADU CASTILLO on 05/11/21 1142 [oxy] Prescribed by: RAQUEL WEEMS on 12/08/21 1606 Past Ddkicyk-Vemomn-Jgpjuz Hx Surgeries History of Surgeries: Yes (LAPAROTOMY, C-SECTIONS, HERNIA REPAIR x 8-9, CARDIAC ABLATION, SLEEVE ) Reviewed Nursing Assessment Reviewed/Agree w Nursing PMH: Yes Family Medical History Significant Family History: No Pertinent Family Hx Family Medial History: Alzheimer's disease 19 MOTHER Arthritis 19 MOTHER Asthma 19 FATHER 19 MOTHER Colon cancer 19 MOTHER Completed stroke 19 FATHER 19 MOTHER Deafness or hearing loss Dementia 19 MOTHER Diabetes mellitus 19 FATHER Glaucoma 19 FATHER 19 MOTHER Hypertension 19 FATHER 19 MOTHER Myocardial infarction 19 FATHER 19 MOTHER Respiratory disorder 19 MOTHER Review of Systems-General Constitutional: No chills, No fever EENTM: No blurred vision, No double vision Respiratory: No cough, No short of breath Cardiovascular: No chest pain, No palpitations Gastrointestinal: abdominal pain, diarrhea, nausea, vomiting Genitourinary: dysuria, frequency, pain Musculoskeletal: No gout, No joint pain Skin: No change in color, No change in hair/nails Psychiatric/Neurological: Denies Anxiety, Denies Depressed, Denies Emotional Problems All Other Systems Reviewed Negative Unless Noted: Yes (Negative excepted noted.) Physical Exam-General Problems Physical Exam General Appearance: no apparent distress (Patient drifting in and out of sleep during encounter), obese HEENT: PERRL/EOMI; No pale conjunctivae (R), No pale conjunctivae (L) Neck: non-tender, supple Respiratory: chest non-tender, no respiratory distress, no accessory muscle use Cardiovascular: normal peripheral pulses, regular rate, rhythm Gastrointestinal: No distended (Extremely distended), No guarding (Voluntary); tenderness (generalized tenderness not periotoneal ), hernia (loss of domain) Rectal: deferred Back: no CVA tenderness, no vertebral tenderness Extremities: pedal edema (3+ pitting edema), swelling Neurologic/Psychiatric: alert, oriented x 3 Skin: normal color, warm/dry Lymphatic: no adenopathy Assessment/Plan Assessment/Plan Assessment/Plan Abdominal pain-generalized Abdominal hernia with loss of domain Very large right-sided abdominal hernia with no evidence of obstruction H/o multiple abdominal surgeries and hernia repairs H/o 2 complete bowel obstructions requiring surgical management Nausea and vomiting Nephrolithiasis UTI Hematuria Elevated CRP Methamphetamine use disorder Clear liquids abdominal x ray in am abx for UTI encouraged wt loss, she states has lost about 150 pound recently, following with [facility] and possible converting sleeve to gastric bypass. Hernia with loss of domain would require multispecialty approach. She has seen [facility] about this and said same thing she states and with continued weight loss first. Supervisory-Addendum Brief Verification & Attestation Participated in pt care: history, MDM, physical Personally performed: exam, history, MDM, supervision of care Care discussed with: Medical Student Procedures: n/a Results interpretation: Verified all documentation Verification and Attestation of Medical Student E/M Service A medical student performed and documented this service in my presence. I reviewed and verified all information documented by the medical student and made modifications to such information, when appropriate. I personally performed the physical exam and medical decision making. Jordan Lee, Jun 07, 2022,22:17 JESSICA HARKINS Jun 07, 2022 16:10 JORDAN LEE DO Jun 07, 2022 22:00
[2022-06-07 16:30] VITALS: BP 134/64
[2022-06-07] MEDS ORDERED: ONDANSETRON 4 MG/2 ML (SDV) Z0FRAN IV PRN (16:45)
[2022-06-07] MEDS ORDERED: diphenhydrAMINE 50 MG/ML INJ (BENADRYL) IVP PRN (16:45)
[2022-06-07] MEDS ORDERED: ENOXAPARIN 40 MG/0.4 ML (LOVENOX) SYR SC SCH ×2 (16:45→18:00)
[2022-06-07] MEDS ORDERED: diphenhydrAMINE 25 MG TAB (BENADRYL) PO PRN (16:45)
[2022-06-07] MEDS ORDERED: MELATONIN 3 MG TABLET PO PRN (16:45)
[2022-06-07] MEDS ORDERED: polyethylene glycoL POWDER 17 GM (MIRALAX) PACK PO PRN (16:45)
[2022-06-07] MEDS ORDERED: morphine INJ 4 MG/ML 1 ML (VIAL/SYRINGE) IV PRN (16:45)
[2022-06-07] MEDS ORDERED: MILK OF MAGNESIA 400 MG/5 ML 30 ML UDC PO PRN (16:45)
[2022-06-07] MEDS ORDERED: LACTULOSE SYRUP 10GM/15ML (ENULOSE) 30ML UDC PO PRN (16:45)
[2022-06-07] MEDS ORDERED: LIDOCAINE UROJET 2% GEL 10 ML PKG TOP ONE (16:45)
[2022-06-07] MEDS ORDERED: ANTACID SUSP 30 ML UDC (MYLANTA) PO PRN (16:45)
[2022-06-07] MEDS ORDERED: ALPRAZolam 0.5 MG (XANAX) TAB PO PRN (16:45)
[2022-06-07] MEDS ORDERED: BISACODYL 10 MG SUPP (DULCOLAX) PR PRN (16:45)
[2022-06-07] MEDS ORDERED: ACETAMINOPHEN 325 MG TABLET PO PRN (16:45)
[2022-06-07] MEDS ORDERED: CALCIUM CARBONATE 500 MG (TUMS) TAB.CHEW PO PRN (16:45)
[2022-06-07] MEDS ORDERED: cefTRIAXone 1 GM PRE-MIX 50 ML IV SCH (17:00)
[2022-06-07] MEDS: ENOXAPARIN 60 MG/0.6 ML (LOVENOX) SYR SC SCH (17:11)
[2022-06-07] MEDS: NS IV 1000 ML 1,000 ML IV SCH (17:11)
[2022-06-07] MEDS: ONDANSETRON 4 MG (ZOFRAN) ORAL DISSOLVE TAB PO PRN (17:19)
[2022-06-07 19:14] VITALS: BP 141/72
[2022-06-07] MEDS: DOCUSATE SODIUM 100 MG (COLACE) CAP PO SCH (19:35)
[2022-06-07] MEDS: SENNOSIDES 8.6 MG (SENOKOT) TAB PO SCH (19:36)
[2022-06-08 00:46] VITALS: BP 113/64
[2022-06-08] MEDS: ONDANSETRON 4 MG (ZOFRAN) ORAL DISSOLVE TAB PO PRN (01:35)
[2022-06-08 04:27] VITALS: BP 111/69
[2022-06-08] MEDS: ENOXAPARIN 60 MG/0.6 ML (LOVENOX) SYR SC SCH (05:26)
[2022-06-08 05:50] LABS: BASOPHILS % (AUTO) 0 % (0-10); EOSINOPHILS % (AUTO) 0 % (0-10); HEMATOCRIT 42 % (35-52); HEMOGLOBIN 13.1 g/dL (11.5-16.0); LYMPHOCYTES # (AUTO) 1.3 10^3/uL (1.0-4.0); LYMPHOCYTES % (AUTO) 14 % (12-44); MEAN CORPUSCULAR HEMOGLOBIN 31 pg (25-34); MEAN CORPUSCULAR HGB CONC 31 g/dL (32-36); MEAN CORPUSCULAR VOLUME 99 fL (80-99); MEAN PLATELET VOLUME 9.4 fL (9.0-12.2); MONOCYTES # (AUTO) 0.5 10^3/uL (0.0-1.0); MONOCYTES % (AUTO) 5 % (0-12); NEUTROPHILS # (AUTO) 7.8 10^3/uL (1.8-7.8); NEUTROPHILS % (AUTO) 81 % (42-75); PLATELET COUNT 180 10^3/uL (130-400); WHITE BLOOD COUNT 9.7 10^3/uL (4.3-11.0)
[2022-06-08 05:58] LABS: ALBUMIN 3.4 GM/DL (3.2-4.5)
[2022-06-08 05:59] LABS: CALCIUM 8.6 MG/DL (8.5-10.1)
[2022-06-08 06:01] LABS: TOTAL PROTEIN 6.3 GM/DL (6.4-8.2)
[2022-06-08 06:03] LABS: BILIRUBIN,TOTAL 0.4 MG/DL (0.1-1.0)
[2022-06-08 06:04] LABS: CREATININE SERUM 0.67 MG/DL (0.60-1.30)
[2022-06-08 08:02] VITALS: BP 118/58
[2022-06-08] MEDS: NS IV 1000 ML 1,000 ML IV SCH (08:08)
[2022-06-08] MEDS: DOCUSATE SODIUM 100 MG (COLACE) CAP PO SCH (08:09)
[2022-06-08] MEDS: SENNOSIDES 8.6 MG (SENOKOT) TAB PO SCH (08:09)
--- NOTE | 2022-06-08 08:34 | Progress Note - Surgery ---
Subjective Date Seen by a Provider: Jun 08, 2022 Time Seen by a Provider: 08:34 Subjective/Events-last exam Feeling better today. Tolerating clears. Pain still present but tolerable now. No flatus or bm. Denies any n/v fever sweats chills shortness of breath or chest pain at this time. Focused Exam Lactate Level 06/07/22 13:55: Lactic Acid Level 0.89 Objective Exam Vital Signs Date Time Temp Pulse Resp B/P (MAP) Pulse Ox O2 Delivery O2 Flow Rate FiO2 06/08/22 08:02 36.7 86 18 118/58 (78) 96 High Flow N/C 2.00 06/08/22 06:51 85 06/08/22 04:27 36.8 90 20 111/69 (83) 94 High Flow N/C 2.00 06/08/22 01:00 94 06/08/22 00:46 36.6 75 20 113/64 (80) 95 High Flow N/C 2.00 06/07/22 19:43 Nasal Cannula 2.00 06/07/22 19:14 36.3 84 20 141/72 (95) 94 High Flow N/C 2.00 06/07/22 19:00 73 06/07/22 17:30 76 06/07/22 16:30 36.3 76 20 134/64 (87) 93 High Flow N/C 06/07/22 16:30 95 Nasal Cannula 2.00 06/07/22 15:25 90 12 166/93 95 Nasal Cannula 2.00 I & O 06/08/22 07:00 Intake Total 670 ml Output Total 950 ml Balance -280 ml Capillary Refill : General Appearance: No Apparent Distress, Obese HEENT: PERRL/EOMI, Moist Mucous Membranes Neck: Non Tender, Supple Respiratory: Chest Non Tender, Normal Breath Sounds Cardiovascular: Regular Rate, Rhythm, No JVD Peripheral Pulses: 2+ Radial Pulses (R), 2+ Radial Pulses (L) Gastrointestinal: soft; No distended, No guarding; tenderness (generalized tenderness not periotoneal, significantly less than yesterday), hernia (loss of domain) Extremity: Normal Capillary Refill, Non Tender, Pedal Edema (Pitting edema to the knee bilaterally) Neurologic/Psychiatric: Alert, Oriented x3 Skin: Normal Color, Warm/Dry Lymphatic: No Adenopathy Results Lab Laboratory Tests 7/25/22 08:40: White Blood Count 9.8, Red Blood Count 4.77, Hemoglobin 14.8, Hematocrit 46, Mean Corpuscular Volume 96, Mean Corpuscular Hemoglobin 31, Mean Corpuscular Hemoglobin Concent 32, Red Cell Distribution Width 13.3, Platelet Count 200, Mean Platelet Volume 9.1, Immature Granulocyte % (Auto) 0, Neutrophils (%) (Auto) 78H, Lymphocytes (%) (Auto) 16, Monocytes (%) (Auto) 5, Eosinophils (%) (Auto) 1, Basophils (%) (Auto) 0, Neutrophils # (Auto) 7.6, Lymphocytes # (Auto) 1.5, Monocytes # (Auto) 0.5, Eosinophils # (Auto) 0.1, Basophils # (Auto) 0.0, Immature Granulocyte # (Auto) 0.0, Sodium Level 140, Potassium Level 4.0, Chloride Level 102, Carbon Dioxide Level 28, Anion Gap 10, Blood Urea Nitrogen 9, Creatinine 0.73, Estimat Glomerular Filtration Rate 95, BUN/Creatinine Ratio 12, Glucose Level 136H, Calcium Level 9.5, Corrected Calcium 9.6, Total Bilirubin 0.8, Aspartate Amino Transf (AST/SGOT) 21, Alanine Aminotransferase (ALT/SGPT) 24, Alkaline Phosphatase 109, C-Reactive Protein High Sensitivity 1.36H, Total Protein 7.2, Albumin 3.9, Lipase 11 06/07/22 11:14: Urine Color YELLOW, Urine Clarity CLOUDY, Urine pH 6.0, Urine Specific [place] >=1.030, Urine Protein TRACEH, Urine Glucose (UA) NEGATIVE, Urine Ketones NEGATIVE, Urine Nitrite POSITIVEH, Urine Bilirubin NEGATIVE, Urine Urobilinogen 0.2, Urine Leukocyte Esterase 1+H, Urine RBC (Auto) 1+H, Urine RBC 2-5H, Urine WBC 50-100H, Urine Squamous Epithelial Cells RARE, Urine Crystals NONE, Urine Bacteria LARGEH, Urine Casts NONE, Urine Mucus NEGATIVE, Urine Culture Indicated YES, Urine Opiates Screen NEGATIVE, Urine Oxycodone Screen NEGATIVE, Urine Methadone Screen NEGATIVE, Urine Propoxyphene Screen NEGATIVE, Urine Barbiturates Screen NEGATIVE, Ur Tricyclic Antidepressants Screen NEGATIVE, Urine Phencyclidine Screen NEGATIVE, Urine Amphetamines Screen POSITIVEH, Urine Methamphetamines Screen POSITIVEH, Urine Benzodiazepines Screen NEGATIVE, Urine Cocaine Screen NEGATIVE, Urine Cannabinoids Screen NEGATIVE 06/07/22 13:55: Lactic Acid Level 0.89 06/08/22 05:39: White Blood Count 9.7, Red Blood Count 4.25, Hemoglobin 13.1, Hematocrit 42, Mean Corpuscular Volume 99, Mean Corpuscular Hemoglobin 31, Mean Corpuscular Hemoglobin Concent 31L, Red Cell Distribution Width 13.1, Platelet Count 180, Mean Platelet Volume 9.4, Immature Granulocyte % (Auto) 1, Neutrophils (%) (Auto) 81H, Lymphocytes (%) (Auto) 14, Monocytes (%) (Auto) 5, Eosinophils (%) (Auto) 0, Basophils (%) (Auto) 0, Neutrophils # (Auto) 7.8, Lymphocytes # (Auto) 1.3, Monocytes # (Auto) 0.5, Eosinophils # (Auto) 0.0, Basophils # (Auto) 0.0, Immature Granulocyte # (Auto) 0.1, Sodium Level 140, Potassium Level 4.0, Chloride Level 106, Carbon Dioxide Level 23, Anion Gap 11, Blood Urea Nitrogen 8, Creatinine 0.67, Estimat Glomerular Filtration Rate 101, BUN/Creatinine Ratio 12, Glucose Level 135H, Calcium Level 8.6, Corrected Calcium 9.1, Total Bilirubin 0.4, Aspartate Amino Transf (AST/SGOT) 18, Alanine Aminotransferase (ALT/SGPT) 23, Alkaline Phosphatase 87, Total Protein 6.3L, Albumin 3.4 Microbiology 06/07/22 Urine Culture - Preliminary, Resulted Gram Negative Mo Proteus species Assessment/Plan Assessment/Plan Assessment/Plan Abdominal pain-generalized Abdominal hernia with loss of domain Very large right-sided abdominal hernia with no evidence of obstruction H/o multiple abdominal surgeries and hernia repairs H/o 2 complete bowel obstructions requiring surgical management Nausea and vomiting Nephrolithiasis UTI Hematuria Elevated CRP Methamphetamine use disorder Clear liquids Increase activity abdominal x ray today abx for UTI encouraged wt loss, she states has lost about 150 pound recently, following with [facility] and possible converting sleeve to gastric bypass. Hernia with loss of domain would require multispecialty approach. She has seen [facility] about this and said same thing she states and with continued weight loss first. JORDAN LEE DO Jun 08, 2022 08:34
[2022-06-08] MEDS ORDERED: SULF1TAB38 PO (09:35)
--- NOTE | 2022-06-08 09:36 | Discharge Summary ---
Discharge Summary Hospital Course Was the Problem List Reviewed?: Yes Problems/Dx: (1) UTI (urinary tract infection) Status: Acute Qualifiers: Qualified Codes: N30.00 - Acute cystitis without hematuria (2) Abdominal wall hernia Status: Acute (3) Morbid obesity Status: Acute (4) Methamphetamine use Status: Acute Hospital Course Date of Admission: Jun 07, 2022 at 14:17 Admission Diagnosis : Family Physician/Provider: [facility] Date of Discharge: 06/08/22 Discharge Diagnosis: [ ] Hospital Course: Hospital Course: Yomaira Merino is a 56-year-old woman with past medical history of abdominal hernia with multiple repair surgeries, T2DM, kidney stones, obesity, afib on Eliquis, and meth use who was admitted for abdominal pain, nausea, and vomiting. A CT abdomen/pelvis with contrast was performed which revealed a large right anterior abdominal wall hernia without definite site of obstruction appreciated along with a reduction in the left renal stone burden with small residual fragments without obstruction. A UA revealed UTI with Proteus species. She was admitted and placed on clear liquid diet with supportive measures for nausea and pain control. She had a bowel movement and passed gas while admitted. Ceftriaxone was given for her UTI. She will be discharged home today in stable condition on TMP/SMX 160/800 BID x 14 days with instructions to follow up with her PCP when urine culture sensitivities are available. Labs and Pending Lab Test: Laboratory Tests 06/07/22 11:14: Urine Color YELLOW, Urine Clarity CLOUDY, Urine pH 6.0, Urine Specific [place] >=1.030, Urine Protein TRACEH, Urine Glucose (UA) NEGATIVE, Urine Ketones NEGATIVE, Urine Nitrite POSITIVEH, Urine Bilirubin NEGATIVE, Urine Urobilinogen 0.2, Urine Leukocyte Esterase 1+H, Urine RBC (Auto) 1+H, Urine RBC 2-5H, Urine WBC 50-100H, Urine Squamous Epithelial Cells RARE, Urine Crystals NONE, Urine Bacteria LARGEH, Urine Casts NONE, Urine Mucus NEGATIVE, Urine Culture Indicated YES, Urine Opiates Screen NEGATIVE, Urine Oxycodone Screen NEGATIVE, Urine Metha done Screen NEGATIVE, Urine Propoxyphene Screen NEGATIVE, Urine Barbiturates Screen NEGATIVE, Ur Tricyclic Antidepressants Screen NEGATIVE, Urine Phencyclidine Screen NEGATIVE, Urine Amphetamines Screen POSITIVEH, Urine Meth amphetamines Screen POSITIVEH, Urine Benzodiazepines Screen NEGATIVE, Urine Cocaine Screen NEGATIVE, Urine Cannabinoids Screen NEGATIVE 06/07/22 13:55: Lactic Acid Level 0.89 06/08/22 05:39: White Blood Count 9.7, Red Blood Count 4.25, Hemoglobin 13.1, Hematocrit 42, Mean Corpuscular Volume 99, Mean Corpuscular Hemoglobin 31, Mean Corpuscular Hemoglobin Concent 31L, Red Cell Distribution Width 13.1, Platelet Count 180, Mean Platelet Volume 9.4, Immature Granulocyte % (Auto) 1, Neutrophils (%) (Auto) 81H, Lymphocytes (%) (Auto) 14, Monocytes (%) (Auto) 5, Eosinophils (%) (Auto) 0, Basophils (%) (Auto) 0, Neutrophils # (Auto) 7.8, Lymphocytes # (Auto) 1.3, Monocytes # (Auto) 0.5, Eosinophils # (Auto) 0.0, Basophils # (Auto) 0.0, Immature Granulocyte # (Auto) 0.1, Sodium Level 140, Potassium Level 4.0, Chloride Level 106, Carbon Dioxide Level 23, Anion Gap 11, Blood Urea Nitrogen 8, Creatinine 0.67, Estimat Glomerular Filtration Rate 101, BUN/Creatinine Ratio 12, Glucose Level 135H, Calcium Level 8.6, Corrected Calcium 9.1, Total Bilirubin 0.4, Aspartate Amino Transf (AST/SGOT) 18, Alanine Aminotransferase (ALT/SGPT) 23, Alkaline Phosphatase 87, Total Protein 6.3L, Albumin 3.4 Microbiology 06/07/22 Urine Culture - Preliminary, Resulted Gram Negative Mo Proteus species Home Meds Active Bactrim Ds Tablet (Sulfamethoxazole/Trimethoprim) 1 Each Tablet 1 Each PO BID Percocet 10-325 mg Tablet (Oxycodone HCl/Acetaminophen) 1 Each Tablet 1 Tab PO Q4H PRN [oxy] Cefdinir 300 Mg Capsule 300 Mg PO BID 14 Days Ondansetron Odt (Ondansetron) 4 Mg Tab.rapdis 4-8 Mg PO Q6H PRN HYDROcodone/APAP 10/325 TABLET (Acetaminophen/Hydrocodone Bitart) 1 Ea Tab 1-2 Ea PO Q6H PRN Oxyir Tablet (Oxycodone HCl) 5 Mg Tab 5 Mg PO Q8H PRN Reported Klor-Con M20 (Potassium Chloride) 20 Meq Tab.er.prt 20 Meq PO BID Stool Softener (Docusate Sodium) 100 Mg Tablet 100-200 Mg PO BID PRN Flonase Allergy Relief (Fluticasone Propionate) 9.9 Ml Nathalie.susp 1 Nathalie NSEACH BID PRN Sumatriptan Succinate 50 Mg Tablet 50 Mg PO UD PRN TAKE 1 TAB AT SYMPTOM ONSET AND MAY TAKE ANOTHER DOSE AFTER 2 HOURS IF SYMPTOMS ARE NOT RELIEVED Fluticasone-Salmeterol 250-50 (Fluticasone Propion/Salmeterol) 1 Each Blst.w.dev 1 Puff INH BID PRN Ssd (Silver Sulfadiazine) 25 Gm Cream..g. 1 Applic TOP BID PRN Vitamin D2 (Ergocalciferol (Vitamin D2)) 1,250 Mcg Capsule 1,250 Mcg PO FRI Metformin HCl 1,000 Mg Tablet 1,000 Mg PO BID Atorvastatin Calcium 40 Mg Tablet 40 Mg PO DAILY Eliquis (Apixaban) 5 Mg Tablet 5 Mg PO BID Sertraline HCl 100 Mg Tablet 100 Mg PO DAILY Pantoprazole Sodium 20 Mg Tablet.dr 20 Mg PO DAILY Metoprolol Succinate 25 Mg Tab.er.24h 25 Mg PO DAILY Hydroxyzine Pamoate 25 Mg Capsule 25 Mg PO HS PRN Albuterol Sulfate 2.5 Mg/3 Ml Vial.neb 2.5 Mg NEB Q4H PRN Furosemide 40 Mg Tablet 40 Mg PO BID Assessment/Pt Instructions pcp 1 week Discharge Planning: <30 minutes discharge planning Discharge Instructions Discharge Diet: No Restrictions Activity as Tolerated: Yes Discharge Physical Examination Vital Signs Vital Signs Date Time Temp Pulse Resp B/P (MAP) Pulse Ox O2 Delivery O2 Flow Rate FiO2 06/08/22 09:06 Nasal Cannula 2.00 06/08/22 08:02 36.7 86 18 118/58 (78) 96 General Appearance: No Apparent Distress, WD/WN, Chronically ill, Obese Allergies: Coded Allergies: latex (Verified Allergy, Intermediate, RASH, ITCHING, 03/02/11) vancomycin (Verified Allergy, Intermediate, HIVES, 03/02/11) iodine (Verified Allergy, Mild, "ILL", 03/02/11) lorazepam (Verified Allergy, Unknown, 07/12/17) phenobarbital (Verified Allergy, Unknown, 03/09/06) phenytoin (Verified Allergy, Unknown, 07/12/17) Discharge Summary Date of Admission Jun 07, 2022 at 14:17 Date of Discharge Discharge Date: Jun 08, 2022 Admission Diagnosis 1) Partial Small Bowel Obstruction * CT abdomen/ pelvis with contrast: Large right anterior abdominal wall hernia without definite site of obstruction appreciated * Surgery following, appreciate recs * NPO * IVF and monitor electrolytes * Supportive measures 2) UTI * Dose of Ceftriaxone 1g in ED * Hx of Proteus UTI in November of this year * Hx of Kidney stones s/p laser therapy and ureteral stent placement and removal * Consider TMP/SMX 3) T2DM * SSI 4) Afib * Continue Eliquis Dipso: Admit to fourth floor for further medical management. VALERI ARROYO DO Jun 08, 2022 09:36
--- NOTE | 2022-06-08 10:00 | Progress Note ---
YOVANNY COPELAND 06/08/22 1000: Progress Note Hospital Course: Yomaira Merino is a 56-year-old woman with past medical history of abdominal hernia with multiple repair surgeries, T2DM, kidney stones, obesity, afib on [place] iquis, and meth use who was admitted for abdominal pain, nausea, and vomiting. A CT abdomen/pelvis with contrast was performed which revealed a large right anterior abdominal wall hernia without definite site of obstruction appreciated along with a reduction in the left renal stone burden with small residual fragments without obstruction. A UA revealed UTI with Proteus species. She was admitted and placed on clear liquid diet with supportive measures for nausea and pain control. She had a bowel movement and passed gas while admitted. Ceftriaxone was given for her UTI. She will be discharged home today in stable condition on TMP/SMX 160/800 BID x 14 days with instructions to follow up with her PCP when urine culture sensitivities are available. KATHARINA ARROYO DO 06/08/222111: Supervisory-Addendum Brief Verification & Attestation Participated in pt care: history, MDM, physical Personally performed: exam, history, MDM, supervision of care Care discussed with: Medical Student Procedures: n/a Results interpretation: Verified all documentation Verification and Attestation of Medical Student E/M Service A medical student performed and documented this service in my presence. I reviewed and verified all information documented by the medical student and made modifications to such information, when appropriate. I personally performed the physical exam and medical decision making. Katharina Arroyo Jun 08, 2022,21:12 YOVANNY COPELAND Jun 08, 2022 10:00 KATHARINA ARROYO DO Jun 08, 2022 21:12
[2022-06-08 11:43] VITALS: BP 131/73
--- NOTE | 2022-06-08 11:44 | Diagnostic Imaging Report ---
INDICATION: Abdominal hernia with abdominal distention. FINDINGS: Large abdominal hernia right of midline is again demonstrated in the lower abdomen. This does contain both large and small bowel. There is mild gaseous distention of the small bowel as well as some mild gaseous distention of the colon. No definite obstruction is seen. No free air is demonstrated. No air-fluid levels are seen. IMPRESSION: Large ventral hernia lower right abdomen. Large portion of the small bowel and colon are present within the hernia. There does appear to be a mild generalized ileus. Dictated by: Dictated on workstation # [id number]
[2022-06-08 11:45] VITALS: BP 131/73
== END 2022-06-08 11:45 | disposition home or self-care (01) | DRG 394 ==
LOC: EDUNIT# 08:26 → ER 08:27 → 4TH 14:17
PROVIDERS: ADMIT Internal Medicine; ATTEND Internal Medicine
PROC: 5A0935A Assistance with Respiratory Ventilation, Less than 24 Consecutive Hours, High Flow/Velocity Cannula (ICD-10-PCS; principal; 2022-06-07)
DX: K43.6 Other and unspecified ventral hernia with obstruction, without gangrene (principal); N39.0 Urinary tract infection, site not specified; Z68.43 Body mass index [BMI] 50.0-59.9, adult; N20.0 Calculus of kidney; E66.01 Morbid (severe) obesity due to excess calories; I48.91 Unspecified atrial fibrillation; Z79.01 Long term (current) use of anticoagulants; Z88.1 Allergy status to other antibiotic agents; Z91.041 Radiographic dye allergy status; Z91.040 Latex allergy status; Z79.899 Other long term (current) drug therapy; Z87.891 Personal history of nicotine dependence; E11.9 Type 2 diabetes mellitus without complications; E78.00 Pure hypercholesterolemia, unspecified; I10 Essential (primary) hypertension; J44.9 Chronic obstructive pulmonary disease, unspecified; K21.9 Gastro-esophageal reflux disease without esophagitis; G47.30 Sleep apnea, unspecified; F41.9 Anxiety disorder, unspecified; F32.A Depression, unspecified; F15.90 Other stimulant use, unspecified, uncomplicated; G40.909 Epilepsy, unspecified, not intractable, without status epilepticus; B96.4 Proteus (mirabilis) (morganii) as the cause of diseases classified elsewhere; R31.9 Hematuria, unspecified
CPT/HCPCS: 36415; 51702; 74019; 74177; 80053; 80306; 81000; 83605; 83690; 85025; 86141; 87040; 87077; 87088; 87186; G0378

== ENCOUNTER 2022-09-17 13:23 | Emergency (ER) | payer MEDICAID ==
[~2022-09-17] VITALS: Ht 162.6 cm; Wt 168.0 kg
[~2022-09-17 13:23] MED LIST changes: +ALBU8.5H6 INH; -RT-ALBUINH INH; +SULF1TAB38 PO
--- NOTE | 2022-09-17 13:36 | ED Abdominal Pain ---
General Chief Complaint: Abdominal/GI Problems Stated Complaint: NAUSEA| VOMITING Nursing Triage Note: PT TO ED BY EMS WITH C/P R SIDED ABD PAIN, N/V/D, MARTINS, AND DIZZINESS X 5 DAYS. History of Present Illness Date Seen by Provider: Sep 17, 2022 Time Seen by Provider: 13:36 Initial Comments Patient presents to the emergency department for right sided abdominal pain, nausea, vomiting, diarrhea and headache for the past few days. Reports that she has not been able to keep much down. Denies recent sick contacts that she is aware of. Timing/Duration: 4-5 Days Severity/Quality: Moderate Location: Generalized Abdomen Radiation: No Radiation Activities at Onset: None Modifying Factors: Worsens With Eating Allergies and Home Medications Allergies Coded Allergies: latex (Verified Allergy, Intermediate, RASH, ITCHING, 03/02/11) vancomycin (Verified Allergy, Intermediate, HIVES, 03/02/11) iodine (Verified Allergy, Mild, "ILL", 03/02/11) lorazepam (Verified Allergy, Unknown, 07/12/17) phenobarbital (Verified Allergy, Unknown, 03/09/06) phenytoin (Verified Allergy, Unknown, 07/12/17) Patient Home Medication List Home Medication List Reviewed: Yes Albuterol Sulfate (Albuterol Sulfate) 2.5 Mg/3 Ml Vial.neb, 2.5 MG NEB Q4H PRN for SHORTNESS OF BREATH, (Reported) Entered as Reported by: CHARISSA PAYAN on 07/13/17 1051 Apixaban (Eliquis) 5 Mg Tablet, 5 MG PO BID, (Reported) Entered as Reported by: RADU CASTILLO on 05/11/21 1142 Atorvastatin Calcium (Atorvastatin Calcium) 40 Mg Tablet, 40 MG PO DAILY, (Reported) Entered as Reported by: RADU CASTILLO on 05/11/21 1142 Cephalexin (Cephalexin) 500 Mg Capsule, 500 MG PO BID Prescribed by: Ana Shine on 09/17/22 1731 Docusate Sodium (Stool Softener) 100 Mg Tablet, 100-200 MG PO BID PRN for CONSTIPATION-1ST LINE, (Reported) Entered as Reported by: RADU CASTILLO on 05/11/21 1142 Ergocalciferol (Vitamin D2) (Vitamin D2) 1,250 Mcg Capsule, 1,250 MCG PO FRI, (Reported) Entered as Reported by: RADU CASTILLO on 05/11/21 1142 Fluticasone Propion/Salmeterol (Fluticasone-Salmeterol 250-50) 1 Each Blst.w.dev , 1 PUFF INH BID PRN for SHORTNESS OF BREATH, (Reported) Entered as Reported by: ARDU CASTILLO on 05/11/21 1142 Fluticasone Propionate (Flonase Allergy Relief) 9.9 Ml [place].susp, 1 SPRAY NSEACH BID PRN for CONGESTION, (Reported) Entered as Reported by: ARDU CASTILLO on 05/11/21 1142 Furosemide (Furosemide) 40 Mg Tablet, 40 MG PO BID, (Reported) Entered as Reported by: CHARISSA PAYAN on 07/13/17 1051 Hydrocodone Bit/Acetaminophen (HYDROcodone/APAP 10/325 TABLET) 1 Ea Tab, 1-2 EA PO Q6H PRN for pain Prescribed by: WOOD ORTIZ on 12/03/21 1548 Hydroxyzine Pamoate (Hydroxyzine Pamoate) 25 Mg Capsule, 25 MG PO HS PRN for ANXIETY, (Reported) Entered as Reported by: CHARISSA PAYAN on 07/13/17 1053 Metformin HCl (Metformin HCl) 1,000 Mg Tablet, 1,000 MG PO BID, (Reported) Entered as Reported by: RADU CASTILLO on 05/11/21 1142 Metoprolol Succinate (Metoprolol Succinate) 25 Mg Tab.er.24h, 25 MG PO DAILY, (Reported) Entered as Reported by: RADU CASTILLO on 05/11/21 1142 Ondansetron (Ondansetron Odt) 4 Mg Tab.rapdis, 4-8 MG PO Q6H PRN for NAUSEA/VOMITING Prescribed by: WOOD ORTIZ on 12/03/21 1548 Oxycodone HCl/Acetaminophen (Percocet 10-325 mg Tablet) 1 Each Tablet, 1 TAB PO Q4H PRN for PAIN Prescribed by: RAQUEL WEEMS on 12/08/21 1458 Oxycodone Hcl (Oxyir Tablet) 5 Mg Tab, 5 MG PO Q8H PRN for PAIN-MODERATE (5-7) Prescribed by: VALERI ARROYO on 05/13/21 1115 Pantoprazole Sodium (Pantoprazole Sodium) 20 Mg Tablet.dr, 20 MG PO DAILY, (Reported) Entered as Reported by: RADU CASTILLO on 05/11/21 1142 Potassium Chloride (Klor-Con M20) 20 Meq Tab.er.prt, 20 MEQ PO BID, (Reported) Entered as Reported by: RADU CASTILLO on 05/11/21 1147 Sertraline HCl (Sertraline HCl) 100 Mg Tablet, 100 MG PO DAILY, (Reported) Entered as Reported by: RADU CASTILLO on 05/11/21 1142 Silver Sulfadiazine (Ssd) 25 Gm Cream..g., 1 APPLIC TOP BID PRN for SKIN IRRITATION, (Reported) Entered as Reported by: RADU CASTILLO on 05/11/21 1142 Sulfamethoxazole/Trimethoprim (Bactrim Ds Tablet) 1 Each Tablet, 1 EACH PO BID Prescribed by: VALERI ARROYO on 06/08/22 0935 Sumatriptan Succinate (Sumatriptan Succinate) 50 Mg Tablet, 50 MG PO UD PRN for MIGRAINE, (Reported) Entered as Reported by: RADU CASTILLO on 05/11/21 1142 [oxy] Prescribed by: RAQUEL WEEMS on 12/08/21 6081 Review of Systems Review of Systems Constitutional: No chills; dizziness; No fever EENTM: No Symptoms Reported Respiratory: No Symptoms Reported Cardiovascular: No Symptoms Reported Gastrointestinal: Abdominal Pain, Diarrhea, Nausea, Vomiting Genitourinary: Denies Burning, Denies Frequency Musculoskeletal: no symptoms reported Skin: no symptoms reported All Other Systems Reviewed Negative Unless Noted: Yes Past Fpkrpsw-Ndatzv-Lzmgzy Hx Patient Social History Tobacco Use?: No Use of E-Cig and/or Vaping dev: Yes E-Cig or Vaping type used: Nicotine Use of E-Cig and/or Vaping Kurtis: Current Everyday User Substance use?: Yes Substance type: Methamphetamine Substance frequency: Once in a while Alcohol Use?: No Pt feels they are or have been: No Immunizations Up To Date Influenza Vaccine Up-to-Date: No; Not Current Past Medical History Surgery/Hospitalization HX: COPD, A FIB HERNIA C SECT X 2, LAPAROTOMY, GASTRIC SLEEVE Surgeries: Yes (LAPAROTOMY, C-SECTIONS, HERNIA REPAIR x 8-9, CARDIAC ABLATION, SLEEVE ) Abdominal, Appendectomy, Cardiac, Section Respiratory: Yes (CHRONIC RESPIRATORY FAILURE) Sleep Apnea, COPD Cardiac: Yes Atrial Fibrillation, Chronic Edema/Swelling, Heart Attack, High Cholesterol, Hypertension Neurological: Yes Seizure Disorder Reproductive Disorders: Yes Female Reproductive Disorders: Ovarian Cyst Genitourinary: No Gastrointestinal: Yes (VENTRAL HERNIA) Abdominal Hernia, Gastroesophageal Reflux Musculoskeletal: Yes (NON-MOBILE/BED BOUND DUE TO MORBID OBESITY) Endocrine: Yes (MORBID OBESITY) Diabetes, Insulin dep HEENT: No Cancer: No Psychosocial: Yes Anxiety, Depression Integumentary: No Blood Disorders: No Family Medical History Alzheimer's disease 19 MOTHER Arthritis 19 MOTHER Asthma 19 FATHER 19 MOTHER Colon cancer 19 MOTHER Completed stroke 19 FATHER 19 MOTHER Deafness or hearing loss Dementia 19 MOTHER Diabetes mellitus 19 FATHER Glaucoma 19 FATHER 19 MOTHER Hypertension 19 FATHER 19 MOTHER Myocardial infarction 19 FATHER 19 MOTHER Respiratory disorder 19 MOTHER No Pertinent Family Hx SOCIAL HISTORY: -ETOH--RARE USE -DRUGS--THC, COCAINE (SNORTS IT), METHAMPHETAMINE (SNORTS IT)--ON 03/02/21 CLAIMS "NO DRUGS FOR 13 YEARS" BUT TESTED + FOR METHAPMPHETAMINES -SMOKES 3 PPD, NOW "VAPES" PAST SURGICAL HISTORY: -EXPLORATORY LAPAROTOMY FOR OVARIAN CYST -MULTIPLE HERNIA REPAIRS--5 OR 6 SURGERIES - X 2 -CARDIAC ABLATION FOR ATRIAL FIBRILLATION PT IS NON-MOBILE AND BED-BOUND AND REQUIRES A GILBERTO LIFT FOR TRANSFERS TO WHEELCHAIR PT REQUIRES 2 --24 HOUR CAREGIVERS WITH HER AT ALL TIMES. Physical Exam Vital Signs Vital Signs - First Documented 09/17/22 13:23 Temp 36.6 Pulse 82 Resp 22 B/P (MAP) 148/83 (104) Pulse Ox 99 O2 Delivery Nasal Cannula O2 Flow Rate 2.50 Capillary Refill : Less Than 3 Seconds Height/Weight/BMI Height: 5'4.00" Weight: 396lbs. 0.0oz. 179.109788bc; 63.00 BMI Method:Estimated General Appearance: WD/WN, no apparent distress Neck: non-tender, full range of motion, supple, normal inspection Respiratory: chest non-tender, lungs clear, normal breath sounds, no respiratory distress, no accessory muscle use Cardiovascular: regular rate, rhythm Gastrointestinal: normal bowel sounds, non tender, soft Extremities: normal range of motion, non-tender, normal inspection Neurologic/Psychiatric: alert, normal mood/affect, oriented x 3 Skin: normal color, warm/dry Progress/Results/Core Measures Results/Orders Lab Results Laboratory Tests Test 09/17/22 13:40 09/17/22 16:32 Range/Units White Blood Count 8.4 4.3-11.0 10^3/uL Red Blood Count 4.51 3.80-5.11 10^6/uL Hemoglobin 13.1 11.5-16.0 g/dL Hematocrit 41 35-52 % Mean Corpuscular Volume 92 80-99 fL Mean Corpuscular Hemoglobin 29 25-34 pg Mean Corpuscular Hemoglobin Concent 32 32-36 g/dL Red Cell Distribution Width 14.2 10.0-14.5 % Platelet Count 208 130-400 10^3/uL Mean Platelet Volume 9.3 9.0-12.2 fL Immature Granulocyte % (Auto) 0 % Neutrophils (%) (Auto) 65 42-75 % Lymphocytes (%) (Auto) 27 12-44 % Monocytes (%) (Auto) 6 0-12 % Eosinophils (%) (Auto) 1 0-10 % Basophils (%) (Auto) 1 0-10 % Neutrophils # (Auto) 5.5 1.8-7.8 10^3/uL Lymphocytes # (Auto) 2.3 1.0-4.0 10^3/uL Monocytes # (Auto) 0.5 0.0-1.0 10^3/uL Eosinophils # (Auto) 0.1 0.0-0.3 10^3/uL Basophils # (Auto) 0.1 0.0-0.1 10^3/uL Immature Granulocyte # (Auto) 0.0 0.0-0.1 10^3/uL Sodium Level 139 135-145 MMOL/L Potassium Level 3.6 3.6-5.0 MMOL/L Chloride Level 101 98-107 MMOL/L Carbon Dioxide Level 26 21-32 MMOL/L Anion Gap 12 5-14 MMOL/L Blood Urea Nitrogen 10 7-18 MG/DL Creatinine 0.82 0.60-1.30 MG/DL Estimat Glomerular Filtration Rate 83 BUN/Creatinine Ratio 12 Glucose Level 129 H 70-105 MG/DL Calcium Level 8.9 8.5-10.1 MG/DL Corrected Calcium 9.4 8.5-10.1 MG/DL Total Bilirubin 0.6 0.1-1.0 MG/DL Aspartate Amino Transf (AST/SGOT) 14 5-34 U/L Alanine Aminotransferase (ALT/SGPT) 15 0-55 U/L Alkaline Phosphatase 122 40-136 U/L Total Protein 6.7 6.4-8.2 GM/DL Albumin 3.4 3.2-4.5 GM/DL Lipase 14 8-78 U/L Urine Color YELLOW Urine Clarity CLOUDY Urine pH 6.0 5-9 Urine Specific [place] 1.020 1.016-1.022 Urine Protein TRACE H NEGATIVE Urine Glucose (UA) NEGATIVE NEGATIVE Urine Ketones NEGATIVE NEGATIVE Urine Nitrite POSITIVE H NEGATIVE Urine Bilirubin NEGATIVE NEGATIVE Urine Urobilinogen 1.0 < = 1.0 MG/DL Urine Leukocyte Esterase 2+ H NEGATIVE Urine RBC (Auto) 3+ H NEGATIVE Urine RBC 25-50 H /HPF Urine WBC 50-100 H /HPF Urine Squamous Epithelial Cells 2-5 /HPF Urine Crystals NONE /LPF Urine Bacteria LARGE H /HPF Urine Casts NONE /LPF Urine Mucus NEGATIVE /LPF Urine Culture Indicated YES My Orders Orders - ANA SHINE APRN Comprehensive Metabolic Panel (09/17/22 13:39) Lipase (09/17/22 13:39) Ua Culture If Indicated (09/17/22 13:39) Cbc With Automated Diff (09/17/22 13:39) Ns Iv 1000 Ml (Sodium Chloride 0.9%) (09/17/22 13:45) Ondansetron Injection (Zofran Injectio (09/17/22 13:45) Iohexol Injection (Omnipaque 350 Mg/Ml 1 (09/17/22 16:30) Received Contrast (Hold Metformin- Contr (09/17/22 16:30) Ns (Ivpb) (Sodium Chloride 0.9% Ivpb Bag (09/17/22 16:30) Urine Culture (09/17/22 16:32) Medications Given in ED Current Medications Medications Dose Ordered Sig/Sy Route Start Time Stop Time Status Last Admin Dose Admin Ondansetron HCl 4 mg ONCE ONCE IVP 09/17/22 13:45 09/17/22 13:46 DC 09/17/22 14:01 4 MG Vital Signs/I&O 09/17/22 13:23 Temp 36.6 Pulse 82 Resp 22 B/P (MAP) 148/83 (104) Pulse Ox 99 O2 Delivery Nasal Cannula O2 Flow Rate 2.50 Blood Pressure Mean: 104 Progress Progress Note : Progress Note Patient with UTI noted on exam otherwise looks unremarkable. Will send home with Cephalexin to take as directed. Home instructions reviewed with patient along with reasons to return to the ER. Departure Impression Primary Impression: UTI (urinary tract infection) Qualified Codes: N30.01 - Acute cystitis with hematuria Additional Impression: Gastroenteritis Disposition: HOME, SELF-CARE Condition: Stable Departure-Patient Inst. Decision time for Depature: 17:30 Referrals: [facility] [place] (PCP/Family) Primary Care Physician Patient Instructions: Viral Gastroenteritis in Adults, Urinary Tract Infections in Adults Add. Discharge Instructions: 1. Home and rest. 2. Push fluids. 3. Continue nausea medication as directed as needed at home. 4. [place] diet and advance as tolerated. 5. Cephalexin as directed until finished. 7. Follow up with PCP as needed. 8. Return here if worse or concerns. All discharge instructions reviewed with patient and/or family. Voiced understanding. Scripts Cephalexin (Cephalexin) 500 Mg Capsule 500 MG PO BID for 7 Days, #14 CAP 0 Refills Prov: ANA SHINE APRN 09/17/22 ANA SHINE APRN Sep 17, 2022 13:36
[2022-09-17] MEDS ORDERED: NS IV 1000 ML 1,000 ML IV SCH (13:45)
[2022-09-17] MEDS ORDERED: ONDANSETRON 4 MG/2 ML (SDV) Z0FRAN IVP ONE (13:45)
[2022-09-17 13:47] LABS: BASOPHILS # (AUTO) 0.1 10^3/uL (0.0-0.1); BASOPHILS % (AUTO) 1 % (0-10); EOSINOPHILS # (AUTO) 0.1 10^3/uL (0.0-0.3); EOSINOPHILS % (AUTO) 1 % (0-10); HEMATOCRIT 41 % (35-52); HEMOGLOBIN 13.1 g/dL (11.5-16.0); LYMPHOCYTES # (AUTO) 2.3 10^3/uL (1.0-4.0); LYMPHOCYTES % (AUTO) 27 % (12-44); MEAN CORPUSCULAR HEMOGLOBIN 29 pg (25-34); MEAN CORPUSCULAR HGB CONC 32 g/dL (32-36); MEAN CORPUSCULAR VOLUME 92 fL (80-99); MEAN PLATELET VOLUME 9.3 fL (9.0-12.2); MONOCYTES # (AUTO) 0.5 10^3/uL (0.0-1.0); MONOCYTES % (AUTO) 6 % (0-12); NEUTROPHILS # (AUTO) 5.5 10^3/uL (1.8-7.8); NEUTROPHILS % (AUTO) 65 % (42-75); PLATELET COUNT 208 10^3/uL (130-400); WHITE BLOOD COUNT 8.4 10^3/uL (4.3-11.0)
[2022-09-17 13:58] LABS: ALBUMIN 3.4 GM/DL (3.2-4.5); POTASSIUM 3.6 MMOL/L (3.6-5.0)
[2022-09-17 13:59] LABS: CALCIUM 8.9 MG/DL (8.5-10.1)
[2022-09-17 14:01] LABS: TOTAL PROTEIN 6.7 GM/DL (6.4-8.2)
[2022-09-17 14:02] LABS: BILIRUBIN,TOTAL 0.6 MG/DL (0.1-1.0)
[2022-09-17 14:04] LABS: CREATININE SERUM 0.82 MG/DL (0.60-1.30)
[2022-09-17] MEDS ORDERED: IOHEXOL 350 MG/ML 100 ML (OMNIPAQUE 350) VIAL IV ONE (16:30)
[2022-09-17] MEDS ORDERED: NS 100 ML (IVPB) BAG IV ONE (16:30)
[2022-09-17] MEDS ORDERED: HOLD METFORMIN - RECEIVED CONTRAST 20 ML VIAL IV SCH (16:30)
[2022-09-17 17:05] LABS: BILIRUBIN,URINE NEGATIVE (NEGATIVE); CLARITY,URINE CLOUDY; COLOR,URINE YELLOW; GLUCOSE, URINE (UA) NEGATIVE (NEGATIVE); KETONES,URINE NEGATIVE (NEGATIVE); LEUKOCYTE ESTERASE ,URINE 2+ (NEGATIVE); NITRITE,URINE POSITIVE (NEGATIVE); PROTEIN,URINE TRACE (NEGATIVE)
[2022-09-17 17:13] LABS: BACTERIA,URINE LARGE /HPF; RBC,URINE 25-50 /HPF; WBC,URINE 50-100 /HPF
[2022-09-17] MEDS ORDERED: CEPH500C PO (17:31)
[2022-09-17 17:57] VITALS: BP 143/80
== END 2022-09-17 18:00 | disposition home or self-care (01) ==
LOC: EDUNIT# 13:23 → ER 13:25
DX: N39.0 Urinary tract infection, site not specified (principal); K52.9 Noninfective gastroenteritis and colitis, unspecified; F17.290 Nicotine dependence, other tobacco product, uncomplicated; E66.01 Morbid (severe) obesity due to excess calories; E11.9 Type 2 diabetes mellitus without complications; Z79.4 Long term (current) use of insulin; Z68.44 Body mass index [BMI] 60.0-69.9, adult; Z91.040 Latex allergy status; Z88.1 Allergy status to other antibiotic agents; Z28.310 Unvaccinated for COVID-19; Z87.19 Personal history of other diseases of the digestive system; Z90.49 Acquired absence of other specified parts of digestive tract; Z98.890 Other specified postprocedural states
CPT/HCPCS: 36415; 80053; 81000; 83690; 85025; 87088; 99283

== ENCOUNTER 2022-09-25 20:30 | Emergency (ER) | payer MEDICAID ==
[~2022-09-25] VITALS: Ht 162.5 cm; Wt 167.8 kg
[~2022-09-25 20:30] MED LIST changes: +CEPH500C PO
--- NOTE | 2022-09-25 20:41 | ED Abdominal Pain ---
General Chief Complaint: Abdominal/GI Problems Stated Complaint: upper abdominal pain, nausea, vomiting after eating cheeseburger Source of Information: Patient Exam Limitations: No Limitations (GLORIA VEGA APRN) History of Present Illness Date Seen by Provider: Sep 25, 2022 Time Seen by Provider: 20:41 Initial Comments 56 y/o female presents today with c/o epigastric pain, nausea, and vomiting after eating a cheeseburger this evening. Pt states she has been having diffuse abdominal pain for over a month and is scheduled at [facility] this coming for evaluation of it. She reports h/o methamphetamine abuse but states she has not used in over a month. She denies fevers, chills, bloody stools, decreased appetite. Was recently treated for UTI, pt reports she completed antibiotics and is no longer having UTI symptoms. Timing/Duration: Changing Over Time, Intermittent Severity/Quality: Mild, Aching Location: Epigastric Radiation: No Radiation Modifying Factors: Worsens With Eating; Improves With Vomiting Associated Symptoms: No Back Pain, No Chest Pain, No Diaphoresis, No Fever/Chills, No Fatigue, No Headache, No Heartburn; Nausea/Vomiting; No Shortness of Air, No Swelling/Mass in Abdomen, No Weakness (GLORIA VEGA APRN) Allergies and Home Medications Allergies Coded Allergies: latex (Verified Allergy, Intermediate, RASH, ITCHING, 03/02/11) vancomycin (Verified Allergy, Intermediate, HIVES, 03/02/11) iodine (Verified Allergy, Mild, "ILL", 03/02/11) lorazepam (Verified Allergy, Unknown, 07/12/17) phenobarbital (Verified Allergy, Unknown, 03/09/06) phenytoin (Verified Allergy, Unknown, 07/12/17) Patient Home Medication List Home Medication List Reviewed: Yes (GLORIA VEGA APRN) Albuterol Sulfate (Albuterol Sulfate) 2.5 Mg/3 Ml Vial.neb, 2.5 MG NEB Q4H PRN for SHORTNESS OF BREATH, (Reported) Entered as Reported by: CHARISSA PAYAN on 07/13/17 1051 Apixaban (Eliquis) 5 Mg Tablet, 5 MG PO BID, (Reported) Entered as Reported by: RADU CASTILLO on 05/11/21 1142 Atorvastatin Calcium (Atorvastatin Calcium) 40 Mg Tablet, 40 MG PO DAILY, (Reported) Entered as Reported by: RADU CASTILLO on 05/11/21 1142 Cephalexin (Cephalexin) 500 Mg Capsule, 500 MG PO BID Prescribed by: Ana Finn on 09/17/22 1731 Docusate Sodium (Stool Softener) 100 Mg Tablet, 100-200 MG PO BID PRN for CONSTIPATION-1ST LINE, (Reported) Entered as Reported by: RADU CASTILLO on 05/11/21 1142 Ergocalciferol (Vitamin D2) (Vitamin D2) 1,250 Mcg Capsule, 1,250 MCG PO FRI, (Reported) Entered as Reported by: RADU CASTILLO on 05/11/21 1142 Fluticasone Propion/Salmeterol (Fluticasone-Salmeterol 250-50) 1 Each Blst.w.dev, 1 PUFF INH BID PRN for SHORTNESS OF BREATH, (Reported) Entered as Reported by: RADU CASTILLO on 05/11/21 1142 Fluticasone Propionate (Flonase Allergy Relief) 9.9 Ml [place].susp, 1 SPRAY NSEACH BID PRN for CONGESTION, (Reported) Entered as Reported by: RADU CASTILLO on 05/11/21 1142 Furosemide (Furosemide) 40 Mg Tablet, 40 MG PO BID, (Reported) Entered as Reported by: CHARISSA PAYAN on 07/13/17 1051 Hydrocodone Bit/Acetaminophen (HYDROcodone/APAP 10/325 TABLET) 1 Ea Tab, 1-2 EA PO Q6H PRN for pain Prescribed by: WOOD ORTIZ on 12/03/21 1548 Hydroxyzine Pamoate (Hydroxyzine Pamoate) 25 Mg Capsule, 25 MG PO HS PRN for ANXIETY, (Reported) Entered as Reported by: CHARISSA PAYAN on 07/13/17 1053 Metformin HCl (Metformin HCl) 1,000 Mg Tablet, 1,000 MG PO BID, (Reported) Entered as Reported by: RADU CASTILLO on 05/11/21 1142 Metoprolol Succinate (Metoprolol Succinate) 25 Mg Tab.er.24h, 25 MG PO DAILY, (Reported) Entered as Reported by: RADU CASTILLO on 05/11/21 1142 Ondansetron (Ondansetron Odt) 4 Mg Tab.rapdis, 4-8 MG PO Q6H PRN for NAUSE A/VOMITING Prescribed by: WOOD ORTIZ on 12/03/21 1548 Oxycodone HCl/Acetaminophen (Percocet 10-325 mg Tablet) 1 Each Tablet, 1 TAB PO Q4H PRN for PAIN Prescribed by: RAQUEL WEEMS on 12/08/21 1458 Oxycodone Hcl (Oxyir Tablet) 5 Mg Tab, 5 MG PO Q8H PRN for PAIN-MODERATE (5-7) Prescribed by: VALERI ARROYO on 05/13/21 1115 Pantoprazole Sodium (Pantoprazole Sodium) 20 Mg Tablet.dr, 20 MG PO DAILY, (Reported) Entered as Reported by: RADU CASTILLO on 05/11/21 1142 Potassium Chloride (Klor-Con M20) 20 Meq Tab.er.prt, 20 MEQ PO BID, (Reported) Entered as Reported by: RADU CASTILLO on 05/11/21 1147 Sertraline HCl (Sertraline HCl) 100 Mg Tablet, 100 MG PO DAILY, (Reported) Entered as Reported by: RADU CASTILLO on 05/11/21 1142 Silver Sulfadiazine (Ssd) 25 Gm Cream..g., 1 APPLIC TOP BID PRN for SKIN IRRITA TION, (Reported) Entered as Reported by: RADU CASTILLO on 05/11/21 1142 Sulfamethoxazole/Trimethoprim (Bactrim Ds Tablet) 1 Each Tablet, 1 EACH PO BID Prescribed by: VALERI ARROYO on 06/08/22 0935 Sumatriptan Succinate (Sumatriptan Succinate) 50 Mg Tablet, 50 MG PO UD PRN for MIGRAINE, (Reported) Entered as Reported by: RADU CASTILLO on 05/11/21 1142 [oxy] Prescribed by: RAQUEL WEEMS on 12/08/21 1455 Review of Systems Review of Systems Constitutional: no symptoms reported EENTM: No Symptoms Reported Respiratory: No Symptoms Reported Cardiovascular: No Symptoms Reported Gastrointestinal: Denies Abdomen Distended; Abdominal Pain; Denies Blood Streaked Stools, Denies Constipated, Denies Diarrhea, Denies Difficulty Swallowing; Nausea; Denies Poor Fluid Intake, Denies Rectal Bleeding; Vomiting Genitourinary: No Symptoms Reported Musculoskeletal: no symptoms reported Skin: no symptoms reported (GLORIA VEGA APRN) Past Ceeqteo-Xwsdox-Tlawir Hx Patient Social History Tobacco Use?: No Substance use?: Yes Substance type: Methamphetamine Substance frequency: Several times a month Alcohol Use?: No Pt feels they are or have been: No (GLORIA VEGA APRN) Immunizations Up To Date First/Initial COVID19 Vaccinat: UNK Second COVID19 Vaccination Koko: UNK Third COVID19 Vaccination Date: UNK (GLORIA VEGA APRN) Past Medical History Surgery/Hospitalization HX: COPD, A FIB HERNIA C SECT X 2, LAPAROTOMY, GASTRIC SLEEVE Surgeries: Yes (LAPAROTOMY, C-SECTIONS, HERNIA REPAIR x 8-9, CARDIAC ABLATION, SLEEVE ) Abdominal, Appendectomy, Cardiac, Section Respiratory: Yes (CHRONIC RESPIRATORY FAILURE) Sleep Apnea, COPD Cardiac: Yes Atrial Fibrillation, Chronic Edema/Swelling, Heart Attack, High Cholesterol, Hypertension Neurological: Yes Seizure Disorder Reproductive Disorders: Yes Female Reproductive Disorders: Ovarian Cyst Genitourinary: No Gastrointestinal: Yes (VENTRAL HERNIA) Abdominal Hernia, Gastroesophageal Reflux Musculoskeletal: Yes (NON-MOBILE/BED BOUND DUE TO MORBID OBESITY) Endocrine: Yes (MORBID OBESITY) Diabetes, Insulin dep HEENT: No Cancer: No Psychosocial: Yes Anxiety, Depression Integumentary: No Blood Disorders: No (GLORIA VEGA APRN) Family Medical History Alzheimer's disease 19 MOTHER Arthritis 19 MOTHER Asthma 19 FATHER 19 MOTHER Colon cancer 19 MOTHER Completed stroke 19 FATHER 19 MOTHER Deafness or hearing loss Dementia 19 MOTHER Diabetes mellitus 19 FATHER Glaucoma 19 FATHER 19 MOTHER Hypertension 19 FATHER 19 MOTHER Myocardial infarction 19 FATHER 19 MOTHER Respiratory disorder 19 MOTHER No Pertinent Family Hx SOCIAL HISTORY: -ETOH--RARE USE -DRUGS--THC, COCAINE (SNORTS IT), METHAMPHETAMINE (SNORTS IT)--ON 03/02/21 CLAIMS "NO DRUGS FOR 13 YEARS" BUT TESTED + FOR METHAPMPHETAMINES -SMOKES 3 PPD, NOW "VAPES" PAST SURGICAL HISTORY: -EXPLORATORY LAPAROTOMY FOR OVARIAN CYST -MULTIPLE HERNIA REPAIRS--5 OR 6 SURGERIES - X 2 -CARDIAC ABLATION FOR ATRIAL FIBRILLATION PT IS NON-MOBILE AND BED-BOUND AND REQUIRES A GILBERTO LIFT FOR TRANSFERS TO WHEELCHAIR PT REQUIRES 2 --24 HOUR CAREGIVERS WITH HER AT ALL TIMES. (GLORIA VEGA APRN) Physical Exam Vital Signs Vital Signs - First Documented 09/25/22 20:30 Temp 36.4 Pulse 80 Resp 22 B/P (MAP) 125/95 (105) Pulse Ox 95 O2 Delivery Room Air (CHARLIE SU MD) Vital Signs Capillary Refill : (GLORIA VEGA APRN) Height/Weight/BMI Height: 5'4.00" Weight: 396lbs. 0.0oz. 179.747696eh; 63.00 BMI Method:Estimated General Appearance: WD/WN, no apparent distress HEENT: normal ENT inspection Respiratory: chest non-tender, lungs clear, normal breath sounds Cardiovascular: normal peripheral pulses, regular rate, rhythm, no murmur Gastrointestinal: normal bowel sounds, soft, no organomegaly; No guarding, No rebound; tenderness (epigastric) Back: normal inspection, no CVA tenderness (GLORIA VEGA APRN) Progress/Results/Core Measures Results/Orders Lab Results Laboratory Tests Test 09/25/22 21:05 Range/Units White Blood Count 9.4 4.3-11.0 10^3/uL Red Blood Count 4.77 3.80-5.11 10^6/uL Hemoglobin 13.9 11.5-16.0 g/dL Hematocrit 44 35-52 % Mean Corpuscular Volume 92 80-99 fL Mean Corpuscular Hemoglobin 29 25-34 pg Mean Corpuscular Hemoglobin Concent 32 32-36 g/dL Red Cell Distribution Width 14.1 10.0-14.5 % Platelet Count 211 130-400 10^3/uL Mean Platelet Volume 9.1 9.0-12.2 fL Immature Granulocyte % (Auto) 0 % Neutrophils (%) (Auto) 67 42-75 % Lymphocytes (%) (Auto) 25 12-44 % Monocytes (%) (Auto) 6 0-12 % Eosinophils (%) (Auto) 1 0-10 % Basophils (%) (Auto) 0 0-10 % Neutrophils # (Auto) 6.3 1.8-7.8 10^3/uL Lymphocytes # (Auto) 2.4 1.0-4.0 10^3/uL Monocytes # (Auto) 0.6 0.0-1.0 10^3/uL Eosinophils # (Auto) 0.1 0.0-0.3 10^3/uL Basophils # (Auto) 0.0 0.0-0.1 10^3/uL Immature Granulocyte # (Auto) 0.0 0.0-0.1 10^3/uL Sodium Level 139 135-145 MMOL/L Potassium Level 4.0 3.6-5.0 MMOL/L Chloride Level 104 98-107 MMOL/L Carbon Dioxide Level 21 21-32 MMOL/L Anion Gap 14 5-14 MMOL/L Blood Urea Nitrogen 12 7-18 MG/DL Creatinine 0.79 0.60-1.30 MG/DL Estimat Glomerular Filtration Rate 87 BUN/Creatinine Ratio 15 Glucose Level 109 H 70-105 MG/DL Calcium Level 8.7 8.5-10.1 MG/DL Corrected Calcium 9.1 8.5-10.1 MG/DL Total Bilirubin 0.4 0.1-1.0 MG/DL Aspartate Amino Transf (AST/SGOT) 11 5-34 U/L Alanine Aminotransferase (ALT/SGPT) 9 0-55 U/L Alkaline Phosphatase 119 40-136 U/L Total Protein 6.6 6.4-8.2 GM/DL Albumin 3.5 3.2-4.5 GM/DL Lipase 17 8-78 U/L (CHARLIE SU MD) Vital Signs/I&O 09/25/22 09/25/22 20:30 22:22 Temp 36.4 Pulse 80 77 Resp 22 22 B/P (MAP) 125/95 (105) 122/66 Pulse Ox 95 96 O2 Delivery Room Air Room Air (CHARLIE SU MD) Progress Progress Note : Progress Note Pt in NAD, vitals stable, labs reassuring. She is tender in epigastrium, improvement of nausea with phenergan. She had no episodes of emesis while in ED tonight. (GLORIA VEGA APRN) Departure Impression Primary Impression: Nausea and vomiting Additional Impression: Epigastric pain Disposition: HOME, SELF-CARE Condition: Improved Departure-Patient Inst. Decision time for Depature: 21:55 (GLORIA VEGA APRN) Referrals: [facility] (PCP/Family) Primary Care Physician Patient Instructions: Gallbladder Diet Add. Discharge Instructions: [place], low fat diet. Avoid fried/greasy foods. Avoid eating large meals. Follow up with your doctor as scheduled on 09/30/22. Follow up with any new/worsening concerns All discharge instructions reviewed with patient and/or family. Voiced understanding. ATTENDING PHYSICIAN NOTE: I was physically present as attending physician in the emergency department during the care of this patient, but I was not directly involved in the decision making or delivery of care for this patient. (CHARLIE SU MD) GLORIA VEGA APRN Sep 25, 2022 20:41 CHARLIE SU MD Sep 27, 2022 05:44
[2022-09-25] MEDS ORDERED: PROMETHAZINE INJ 25 MG/ML (PHENERGAN) AMP IM ONE (21:00)
[2022-09-25 21:13] LABS: BASOPHILS % (AUTO) 0 % (0-10); EOSINOPHILS # (AUTO) 0.1 10^3/uL (0.0-0.3); EOSINOPHILS % (AUTO) 1 % (0-10); HEMATOCRIT 44 % (35-52); HEMOGLOBIN 13.9 g/dL (11.5-16.0); LYMPHOCYTES # (AUTO) 2.4 10^3/uL (1.0-4.0); LYMPHOCYTES % (AUTO) 25 % (12-44); MEAN CORPUSCULAR HEMOGLOBIN 29 pg (25-34); MEAN CORPUSCULAR HGB CONC 32 g/dL (32-36); MEAN CORPUSCULAR VOLUME 92 fL (80-99); MEAN PLATELET VOLUME 9.1 fL (9.0-12.2); MONOCYTES # (AUTO) 0.6 10^3/uL (0.0-1.0); MONOCYTES % (AUTO) 6 % (0-12); NEUTROPHILS # (AUTO) 6.3 10^3/uL (1.8-7.8); NEUTROPHILS % (AUTO) 67 % (42-75); PLATELET COUNT 211 10^3/uL (130-400); WHITE BLOOD COUNT 9.4 10^3/uL (4.3-11.0)
[2022-09-25 21:42] LABS: ALBUMIN 3.5 GM/DL (3.2-4.5); BILIRUBIN,TOTAL 0.4 MG/DL (0.1-1.0); CALCIUM 8.7 MG/DL (8.5-10.1); CREATININE SERUM 0.79 MG/DL (0.60-1.30); TOTAL PROTEIN 6.6 GM/DL (6.4-8.2)
[2022-09-25] MEDS ORDERED: ANTACID SUSP 30 ML UDC (MYLANTA) PO ONE (21:45)
[2022-09-25 22:22] VITALS: BP 122/66
== END 2022-09-25 22:37 | disposition home or self-care (01) ==
LOC: EDUNIT# 20:30 → ER 20:35
DX: R10.13 Epigastric pain (principal); R11.2 Nausea with vomiting, unspecified; Z91.040 Latex allergy status; Z87.19 Personal history of other diseases of the digestive system; E11.9 Type 2 diabetes mellitus without complications; E66.01 Morbid (severe) obesity due to excess calories; Z68.44 Body mass index [BMI] 60.0-69.9, adult; Z28.310 Unvaccinated for COVID-19; Z79.4 Long term (current) use of insulin; Z83.3 Family history of diabetes mellitus; Z90.49 Acquired absence of other specified parts of digestive tract; Z98.890 Other specified postprocedural states
CPT/HCPCS: 36415; 80053; 83690; 85025; 99284

== ENCOUNTER 2023-03-05 08:30 | Emergency (ER) | payer OTHER, MEDICAID ==
[~2023-03-05] VITALS: Ht 162.5 cm; Wt 166.1 kg
[2023-03-05] MEDS ORDERED: NS IV 1000 ML 1,000 ML IV STA (08:50)
--- NOTE | 2023-03-05 08:53 | ED Abdominal Pain ---
General Chief Complaint: Abdominal/GI Problems Stated Complaint: ABD PAIN Source of Information: Patient Exam Limitations: No Limitations History of Present Illness Date Seen by Provider: Mar 05, 2023 Time Seen by Provider: 08:30 Initial Comments Patient is a 57-year-old female who appears older than stated age, morbidly obese chief complaint abdominal pain. She states she had vomiting this morning with nausea. She has a known large right abdominal hernia. She is concerned that her "bowel is twisted". She has been having bowel movements her last 1 was yesterday. She denies fevers or chills. She is not short of breath. She has not taken anything for the nausea because her would not give her anythi ng at home today. She has been able to eat both yesterday and today. She states the pain has been coming on for a couple of days. She does not know if she has any burning with urination. She is primarily bedbound. Currently still nauseous. Declining pain medications because she wants to know if something "gets worse". Timing/Duration: 1-2 Days Severity/Quality: Moderate, Aching Location: RLQ Activities at Onset: None Associated Symptoms: Nausea/Vomiting, Swelling/Mass in Abdomen ("hernia is out") Allergies and Home Medications Allergies Coded Allergies: latex (Verified Allergy, Intermediate, RASH, ITCHING, 03/02/11) vancomycin (Verified Allergy, Intermediate, HIVES, 03/02/11) iodine (Verified Allergy, Mild, "ILL", 03/02/11) lorazepam (Verified Allergy, Unknown, 07/12/17) phenobarbital (Verified Allergy, Unknown, 03/09/06) phenytoin (Verified Allergy, Unknown, 07/12/17) Patient Home Medication List Home Medication List Reviewed: Yes Albuterol Sulfate (Albuterol Sulfate) 2.5 Mg/3 Ml Vial.neb, 2.5 MG NEB Q4H PRN for SHORTNESS OF BREATH, (Reported) Entered as Reported by: CHARISSA PAYAN on 07/13/17 1051 Apixaban (Eliquis) 5 Mg Tablet, 5 MG PO BID, (Reported) Entered as Reported by: RADU CASTILLO on 05/11/21 1142 Atorvastatin Calcium (Atorvastatin Calcium) 40 Mg Tablet, 40 MG PO DAILY, (Reported) Entered as Reported by: RADU CASTILLO on 05/11/21 1142 Cephalexin (Cephalexin) 500 Mg Capsule, 500 MG PO BID Prescribed by: Ana Finn on 09/17/22 1731 Docusate Sodium (Stool Softener) 100 Mg Tablet, 100-200 MG PO BID PRN for CONSTIPATION-1ST LINE, (Reported) Entered as Reported by: RADU CASTILLO on 05/11/21 1142 Ergocalciferol (Vitamin D2) (Vitamin D2) 1,250 Mcg Capsule, 1,250 MCG PO FRI, (Reported) Entered as Reported by: RADU CASTILLO on 05/11/21 1142 Fluticasone Propion/Salmeterol (Fluticasone-Salmeterol 250-50) 1 Each Blst.w.dev, 1 PUFF INH BID PRN for SHORTNESS OF BREATH, (Reported) Entered as Reported by: RADU CASTILLO on 05/11/21 1142 Fluticasone Propionate (Flonase Allergy Relief) 9.9 Ml [place].susp, 1 SPRAY NSEACH BID PRN for CONGESTION, (Reported) Entered as Reported by: RADU CASTILLO on 05/11/21 1142 Furosemide (Furosemide) 40 Mg Tablet, 40 MG PO BID, (Reported) Entered as Reported by: CHARISSA PAYAN on 07/13/17 1051 Hydrocodone Bit/Acetaminophen (HYDROcodone/APAP 10/325 TABLET) 1 Ea Tab, 1-2 EA PO Q6H PRN for pain Prescribed by: WOOD ORTIZ on 12/03/21 1548 Hydroxyzine Pamoate (Hydroxyzine Pamoate) 25 Mg Capsule, 25 MG PO HS PRN for ANXIETY, (Reported) Entered as Reported by: CHARISSA PAYAN on 07/13/17 1053 Metformin HCl (Metformin HCl) 1,000 Mg Tablet, 1,000 MG PO BID, (Reported) Entered as Reported by: RADU CASTILLO on 05/11/21 1142 Metoprolol Succinate (Metoprolol Succinate) 25 Mg Tab.er.24h, 25 MG PO DAILY, (Reported) Entered as Reported by: RADU CASTILLO on 05/11/21 1142 Ondansetron (Ondansetron Odt) 4 Mg Tab.rapdis, 4-8 MG PO Q6H PRN for NAUSEA/VOMITING Prescribed by: WOOD ORTIZ on 12/03/21 1548 Oxycodone HCl/Acetaminophen (Percocet 10-325 mg Tablet) 1 Each Tablet, 1 TAB PO Q4H PRN for PAIN Prescribed by: RAQUEL WEEMS on 12/08/21 1458 Oxycodone Hcl (Oxyir Tablet) 5 Mg Tab, 5 MG PO Q8H PRN for PAIN-MODERATE (5-7) Prescribed by: VALERI ARROYO on 05/13/21 1115 Pantoprazole Sodium (Pantoprazole Sodium) 20 Mg Tablet.dr, 20 MG PO DAILY, (Reported) Entered as Reported by: RADU CASTILLO on 05/11/21 1142 Potassium Chloride (Klor-Con M20) 20 Meq Tab.er.prt, 20 MEQ PO BID, (Reported) Entered as Reported by: RADU CASTILLO on 05/11/21 1147 Sertraline HCl (Sertraline HCl) 100 Mg Tablet, 100 MG PO DAILY, (Reported) Entered as Reported by: RADU CASTILLO on 05/11/21 1142 Silver Sulfadiazine (Ssd) 25 Gm Cream..g., 1 APPLIC TOP BID PRN for SKIN IRRITATION, (Reported) Entered as Reported by: RADU CASTILLO on 05/11/21 1142 Sulfamethoxazole/Trimethoprim (Bactrim Ds Tablet) 1 Each Tablet, 1 EACH PO BID Prescribed by: VALERI ARROYO on 06/08/22 0935 Sumatriptan Succinate (Sumatriptan Succinate) 50 Mg Tablet, 50 MG PO UD PRN for MIGRAINE, (Reported) Entered as Reported by: RADU CASTILLO on 05/11/21 1142 [oxy] Prescribed by: RAQUEL WEEMS on 12/08/21 1455 Review of Systems Review of Systems Constitutional: see HPI, other (Morbid obesity - bed weight 365#) Respiratory: No Symptoms Reported Cardiovascular: No Symptoms Reported Gastrointestinal: Abdominal Pain; Denies Blood Streaked Stools, Denies Constipated, Denies Diarrhea; Nausea, Vomiting Genitourinary: Other (unsure if she is having any burning with urination) Skin: no symptoms reported Past Pvmojtc-Tojkzl-Mlycmp Hx Patient Social History Tobacco Use?: Yes Tobacco type used: Cigarettes Smoking Status: Current Everyday Smoker Use of E-Cig and/or Vaping dev: No Substance use?: No Alcohol Use?: No Pt feels they are or have been: No Immunizations Up To Date Influenza Vaccine Up-to-Date: No; Not Current First/Initial COVID19 Vaccinat: NOT VACC, DECLINED Second COVID19 Vaccination Koko: UNK Third COVID19 Vaccination Date: UNK Past Medical History Surgery/Hospitalization HX: COPD, A FIB, HTN, DIABETES HERNIA C SECT X 2, LAPAROTOMY, GASTRIC SLEEVE Surgeries: Yes (LAPAROTOMY, C-SECTIONS, HERNIA REPAIR x 8-9, CARDIAC ABLATION, SLEEVE ) Abdominal, Appendectomy, Cardiac, Section Respiratory: Yes (CHRONIC RESPIRATORY FAILURE) Sleep Apnea, COPD Cardiac: Yes Atrial Fibrillation, Chronic Edema/Swelling, Heart Attack, High Cholesterol, Hypertension Neurological: Yes Seizure Disorder Reproductive Disorders: Yes Female Reproductive Disorders: Ovarian Cyst Genitourinary: No Gastrointestinal: Yes (VENTRAL HERNIA) Abdominal Hernia, Gastroesophageal Reflux Musculoskeletal: Yes (NON-MOBILE/BED BOUND DUE TO MORBID OBESITY) Endocrine: Yes (MORBID OBESITY) Diabetes, Insulin dep HEENT: No Cancer: No Psychosocial: Yes Anxiety, Depression Integumentary: No Blood Disorders: No Family Medical History Alzheimer's disease 19 MOTHER Arthritis 19 MOTHER Asthma 19 FATHER 19 MOTHER Colon cancer 19 MOTHER Completed stroke 19 FATHER 19 MOTHER Deafness or hearing loss Dementia 19 MOTHER Diabetes mellitus 19 FATHER Glaucoma 19 FATHER 19 MOTHER Hypertension 19 FATHER 19 MOTHER Myocardial infarction 19 FATHER 19 MOTHER Respiratory disorder 19 MOTHER No Pertinent Family Hx SOCIAL HISTORY: -ETOH--RARE USE -DRUGS--THC, COCAINE (SNORTS IT), METHAMPHETAMINE (SNORTS IT)--ON 03/02/21 CLAIMS "NO DRUGS FOR 13 YEARS" BUT TESTED + FOR METHAPMPHETAMINES -SMOKES 3 PPD, NOW "VAPES" PAST SURGICAL HISTORY: -EXPLORATORY LAPAROTOMY FOR OVARIAN CYST -MULTIPLE HERNIA REPAIRS--5 OR 6 SURGERIES - X 2 -CARDIAC ABLATION FOR ATRIAL FIBRILLATION PT IS NON-MOBILE AND BED-BOUND AND REQUIRES A GILBERTO LIFT FOR TRANSFERS TO WHEELCHAIR PT REQUIRES 2 --24 HOUR CAREGIVERS WITH HER AT ALL TIMES. Physical Exam Vital Signs Vital Signs - First Documented 03/05/23 08:30 Temp 36.4 Pulse 64 Resp 18 B/P (MAP) 148/81 (103) Pulse Ox 97 O2 Delivery Room Air Capillary Refill : Height/Weight/BMI Height: 5'4.00" Weight: 396lbs. 0.0oz. 179.610843rd; 63.00 BMI Method:Estimated General Appearance: WD/WN Progress/Results/Core Measures Results/Orders Lab Results Laboratory Tests Test 03/05/23 09:10 Range/Units White Blood Count 6.8 4.3-11.0 10^3/uL Red Blood Count 4.84 3.80-5.11 10^6/uL Hemoglobin 13.5 11.5-16.0 g/dL Hematocrit 43 35-52 % Mean Corpuscular Volume 88 80-99 fL Mean Corpuscular Hemoglobin 28 25-34 pg Mean Corpuscular Hemoglobin Concent 32 32-36 g/dL Red Cell Distribution Width 15.1 H 10.0-14.5 % Platelet Count 183 130-400 10^3/uL Mean Platelet Volume 9.7 9.0-12.2 fL Immature Granulocyte % (Auto) 0 % Neutrophils (%) (Auto) 63 42-75 % Lymphocytes (%) (Auto) 28 12-44 % Monocytes (%) (Auto) 6 0-12 % Eosinophils (%) (Auto) 2 0-10 % Basophils (%) (Auto) 1 0-10 % Neutrophils # (Auto) 4.3 1.8-7.8 10^3/uL Lymphocytes # (Auto) 1.9 1.0-4.0 10^3/uL Monocytes # (Auto) 0.4 0.0-1.0 10^3/uL Eosinophils # (Auto) 0.1 0.0-0.3 10^3/uL Basophils # (Auto) 0.0 0.0-0.1 10^3/uL Immature Granulocyte # (Auto) 0.0 0.0-0.1 10^3/uL Sodium Level 141 135-145 MMOL/L Potassium Level 3.9 3.6-5.0 MMOL/L Chloride Level 106 98-107 MMOL/L Carbon Dioxide Level 25 21-32 MMOL/L Anion Gap 10 5-14 MMOL/L Blood Urea Nitrogen 11 7-18 MG/DL Creatinine 0.71 0.60-1.30 MG/DL Estimat Glomerular Filtration Rate 98 BUN/Creatinine Ratio 15 Glucose Level 122 H 70-105 MG/DL Calcium Level 8.6 8.5-10.1 MG/DL Corrected Calcium 9.0 8.5-10.1 MG/DL Total Bilirubin 0.5 0.1-1.0 MG/DL Aspartate Amino Transf (AST/SGOT) 11 5-34 U/L Alanine Aminotransferase (ALT/SGPT) 12 0-55 U/L Alkaline Phosphatase 112 40-136 U/L Total Protein 6.6 6.4-8.2 GM/DL Albumin 3.5 3.2-4.5 GM/DL My Orders Orders - ROCKY SHINE MD Ed Iv/Invasive Line Start (03/05/23 08:50) Cbc With Automated Diff (03/05/23 08:50) Comprehensive Metabolic Panel (03/05/23 08:50) Ns Iv 1000 Ml (Sodium Chloride 0.9%) (03/05/23 08:50) Ondansetron Injection (Zofran Injectio (03/05/23 09:00) Medications Given in ED Current Medications Medications Dose Ordered Sig/Sy Route Start Time Stop Time Status Last Admin Dose Admin Ondansetron HCl 8 mg ONCE ONCE IVP 03/05/23 09:00 03/05/23 09:01 DC 03/05/23 09:04 8 MG Vital Signs/I&O 03/05/23 08:30 Temp 36.4 Pulse 64 Resp 18 B/P (MAP) 148/81 (103) Pulse Ox 97 O2 Delivery Room Air Progress Progress Note : Time: 11:21 Progress Note Patient reevaluated at this time resting comfortably, napping. Easily aroused and states that she feels much better. She is no longer nauseous. She states she always has some degree of pain in her abdomen but it is back down to the normal range. Abdomen reexamined, hernia area is very soft. Continues to have bowel sounds. Does not appear tender when I palpate the area at this point. Her vital signs are stable. Differential diagnosis includes incarcerated abdominal hernia, bowel obstruction. Labs reviewed, CBC is completely normal, chemistry is completely normal. She is treated in the emergency department with saline, 1 L and 8 mg of Zofran IV. (Patient continued to decline pain medicine ). she has no fever, no clinical or objective findings to warrant CT scan at this time. I do not suspect an acute abdomen/bowel obstruction. Patient will be discharged home. She states she has nausea medications. She is comfortable with plan of care. All questions are sought and answered. Departure Impression Primary Impression: Abdominal pain Qualified Codes: R10.31 - Right lower quadrant pain Additional Impression: Ventral hernia without obstruction or gangrene Disposition: 01 HOME, SELF-CARE Condition: Improved Departure-Patient Inst. Decision time for Depature: 11:24 Referrals: [facility] (PCP/Family) Primary Care Physician Patient Instructions: Abdominal Wall Hernias Add. Discharge Instructions: You can take your nausea medication at home every 8 hours as needed. If you develop a fever, worsening pain or vomiting please return to the Emergency Department for re-evaluation. Follow up with your family doctor next week. Copy Copies To 1: [place] KATHRYN M MD Mar 05, 2023 08:53
[2023-03-05] MEDS ORDERED: ONDANSETRON 4 MG/2 ML (SDV) Z0FRAN IVP ONE (09:00)
[2023-03-05 09:18] LABS: BASOPHILS % (AUTO) 1 % (0-10); EOSINOPHILS # (AUTO) 0.1 10^3/uL (0.0-0.3); EOSINOPHILS % (AUTO) 2 % (0-10); HEMATOCRIT 43 % (35-52); HEMOGLOBIN 13.5 g/dL (11.5-16.0); LYMPHOCYTES # (AUTO) 1.9 10^3/uL (1.0-4.0); LYMPHOCYTES % (AUTO) 28 % (12-44); MEAN CORPUSCULAR HEMOGLOBIN 28 pg (25-34); MEAN CORPUSCULAR HGB CONC 32 g/dL (32-36); MEAN CORPUSCULAR VOLUME 88 fL (80-99); MEAN PLATELET VOLUME 9.7 fL (9.0-12.2); MONOCYTES # (AUTO) 0.4 10^3/uL (0.0-1.0); MONOCYTES % (AUTO) 6 % (0-12); NEUTROPHILS # (AUTO) 4.3 10^3/uL (1.8-7.8); NEUTROPHILS % (AUTO) 63 % (42-75); PLATELET COUNT 183 10^3/uL (130-400); WHITE BLOOD COUNT 6.8 10^3/uL (4.3-11.0)
[2023-03-05 09:31] LABS: ALBUMIN 3.5 GM/DL (3.2-4.5); POTASSIUM 3.9 MMOL/L (3.6-5.0)
[2023-03-05 09:32] LABS: CALCIUM 8.6 MG/DL (8.5-10.1)
[2023-03-05 09:33] LABS: TOTAL PROTEIN 6.6 GM/DL (6.4-8.2)
[2023-03-05 09:35] LABS: BILIRUBIN,TOTAL 0.5 MG/DL (0.1-1.0)
[2023-03-05 09:37] LABS: CREATININE SERUM 0.71 MG/DL (0.60-1.30)
[2023-03-05 12:15] VITALS: BP 135/64
== END 2023-03-05 12:48 | disposition home or self-care (01) ==
LOC: EDUNIT# 08:30 → ER 08:31
DX: K43.9 Ventral hernia without obstruction or gangrene (principal); R11.2 Nausea with vomiting, unspecified; E66.01 Morbid (severe) obesity due to excess calories; E11.9 Type 2 diabetes mellitus without complications; F17.210 Nicotine dependence, cigarettes, uncomplicated; F17.290 Nicotine dependence, other tobacco product, uncomplicated; Z79.4 Long term (current) use of insulin; Z98.890 Other specified postprocedural states; Z90.49 Acquired absence of other specified parts of digestive tract; Z91.040 Latex allergy status; Z28.310 Unvaccinated for COVID-19; Z68.44 Body mass index [BMI] 60.0-69.9, adult
CPT/HCPCS: 36415; 80053; 85025

== ENCOUNTER 2023-03-18 17:36 | Emergency (ER) | payer OTHER, MEDICAID ==
[~2023-03-18] VITALS: Ht 162.5 cm; Wt 166.1 kg
[2023-03-18 18:11] LABS: BILIRUBIN,URINE NEGATIVE (NEGATIVE); CLARITY,URINE CLEAR; COLOR,URINE YELLOW; GLUCOSE, URINE (UA) NEGATIVE (NEGATIVE); KETONES,URINE NEGATIVE (NEGATIVE); LEUKOCYTE ESTERASE ,URINE 1+ (NEGATIVE); NITRITE,URINE POSITIVE (NEGATIVE); PROTEIN,URINE NEGATIVE (NEGATIVE)
[2023-03-18 18:19] LABS: BACTERIA,URINE LARGE /HPF; RBC,URINE RARE /HPF
--- NOTE | 2023-03-18 18:42 | ED Abdominal Pain ---
General Chief Complaint: Abdominal/GI Problems Stated Complaint: HEADACHE|BODYAHCES Nursing Triage Note: ARRIVES TODAY WITH A C/O LOWER ABDOMINAL PAIN, GENERALIZED PAIN ALL OVER BODY AND HEADACHE. EMS BLS CREW Source of Information: Patient Exam Limitations: No Limitations History of Present Illness Date Seen by Provider: March 18, 2023 Time Seen by Provider: 17:43 Initial Comments 57-year-old female presents to the ED via EMS for complaints of possible blood in her urine. She lives at home, but has 24-hour care. States that the caregivers were trying to get a urine sample and noticed blood in her groin region. She is uncertain if it was from her urine or her vagina. Patient is postmenopausal. Patient also complaining of lower abdominal pain and dysuria. Patient has several hernias. She has been told that one of them contains her bowels. She reports 4-5 episodes of vomiting today. Last bowel movement was last night and normal. States she has not passed any gas today. Also reports a fever of 101 yesterday. Denies fever today because she has been taking Tylenol. She is also complaining of a migraine, states that she gets migraines frequently. Describes the pain as throbbing and sharp, states the pain feels a little worse than normal. Allergies and Home Medications Allergies Coded Allergies: latex (Verified Allergy, Intermediate, RASH, ITCHING, 03/02/11) vancomycin (Verified Allergy, Intermediate, HIVES, 03/02/11) iodine (Verified Allergy, Mild, "ILL", 03/02/11) lorazepam (Verified Allergy, Unknown, 07/12/17) phenobarbital (Verified Allergy, Unknown, 03/09/06) phenytoin (Verified Allergy, Unknown, 07/12/17) Patient Home Medication List Home Medication List Reviewed: Yes Albuterol Sulfate (Albuterol Sulfate) 2.5 Mg/3 Ml Vial.neb, 2.5 MG NEB Q4H PRN for SHORTNESS OF BREATH, (Reported) Entered as Reported by: CHARISSA PAYAN on 07/13/17 1051 Amoxicillin/Potassium Clav (Amox Tr-K Clv 875-125 mg Tab) 875 Mg-125 Mg Tablet, 1 EACH PO BID Prescribed by: Rosaline Stover on 03/18/232022 Apixaban (Eliquis) 5 Mg Tablet, 5 MG PO BID, (Reported) Entered as Reported by: RADU CASTILLO on 05/11/21 114 Atorvastatin Calcium (Atorvastatin Calcium) 40 Mg Tablet, 40 MG PO DAILY, (Reported) Entered as Reported by: RADU CASTILLO on 05/11/21 114 Cephalexin (Cephalexin) 500 Mg Capsule, 500 MG PO BID Prescribed by: Ana Finn on 09/17/22 1731 Cephalexin (Cephalexin) 500 Mg Tablet, 500 MG PO BID Prescribed by: Rosaline Stover on 03/18/232022 Docusate Sodium (Stool Softener) 100 Mg Tablet, 100-200 MG PO BID PRN for CONSTIPATION-1ST LINE, (Reported) Entered as Reported by: RADU CASTILLO on 05/11/21 114 Ergocalciferol (Vitamin D2) (Vitamin D2) 1,250 Mcg Capsule, 1,250 MCG PO FRI, (Reported) Entered as Reported by: RADU CASTILLO on 05/11/21 114 Fluticasone Propion/Salmeterol (Fluticasone-Salmeterol 250-50) 1 Each Blst.w.dev, 1 PUFF INH BID PRN for SHORTNESS OF BREATH, (Reported) Entered as Reported by: RADU CASTILLO on 05/11/21 114 Fluticasone Propionate (Flonase Allergy Relief) 9.9 Ml [place].susp, 1 SPRAY NSEACH BID PRN for CONGESTION, (Reported) Entered as Reported by: RADU CASTILLO on 05/11/21 114 Furosemide (Furosemide) 40 Mg Tablet, 40 MG PO BID, (Reported) Entered as Reported by: CHARISSA PAYAN on 07/13/17 1051 Hydrocodone Bit/Acetaminophen (HYDROcodone/APAP 10/325 TABLET) 1 Ea Tab, 1-2 EA PO Q6H PRN for pain Prescribed by: WOOD ORTIZ on 12/03/21 1548 Hydroxyzine Pamoate (Hydroxyzine Pamoate) 25 Mg Capsule, 25 MG PO HS PRN for ANXIETY, (Reported) Entered as Reported by: CHARISSA PAYAN on 07/13/17 1053 Metformin HCl (Metformin HCl) 1,000 Mg Tablet, 1,000 MG PO BID, (Reported) Entered as Reported by: RADU CASTILLO on 05/11/21 1142 Metoprolol Succinate (Metoprolol Succinate) 25 Mg Tab.er.24h, 25 MG PO DAILY, (Reported) Entered as Reported by: RADU CASTILLO on 05/11/21 1142 Ondansetron (Ondansetron Odt) 4 Mg Tab.rapdis, 4-8 MG PO Q6H PRN for NAUSEA/VOMITING Prescribed by: WOOD ORTIZ on 12/03/21 1548 Oxycodone HCl/Acetaminophen (Percocet 10-325 mg Tablet) 1 Each Tablet, 1 TAB PO Q4H PRN for PAIN Prescribed by: RAQUEL WEEMS on 12/08/21 1458 Oxycodone Hcl (Oxyir Tablet) 5 Mg Tab, 5 MG PO Q8H PRN for PAIN-MODERATE (5-7) Prescribed by: VALERI ARROYO on 05/13/21 1115 Pantoprazole Sodium (Pantoprazole Sodium) 20 Mg Tablet.dr, 20 MG PO DAILY, (Reported) Entered as Reported by: RADU CASTILLO on 05/11/21 1142 Potassium Chloride (Klor-Con M20) 20 Meq Tab.er.prt, 20 MEQ PO BID, (Reported) Entered as Reported by: RADU CASTILLO on 05/11/21 1147 Sertraline HCl (Sertraline HCl) 100 Mg Tablet, 100 MG PO DAILY, (Reported) Entered as Reported by: RADU CASTILLO on 05/11/21 1142 Silver Sulfadiazine (Ssd) 25 Gm Cream..g., 1 APPLIC TOP BID PRN for SKIN IRRITATION, (Reported) Entered as Reported by: RADU CASTILLO on 05/11/21 1142 Sulfamethoxazole/Trimethoprim (Bactrim Ds Tablet) 1 Each Tablet, 1 EACH PO BID Prescribed by: VALERI ARROYO on 06/08/22 0935 Sumatriptan Succinate (Sumatriptan Succinate) 50 Mg Tablet, 50 MG PO UD PRN for MIGRAINE, (Reported) Entered as Reported by: RADU CASTILLO on 05/11/21 1142 [oxy] Prescribed by: RAQUEL WEEMS on 12/08/21 1455 Review of Systems Review of Systems Constitutional: see HPI Past Eblfjrg-Ncobqy-Ohemia Hx Patient Social History Tobacco Use?: No Use of E-Cig and/or Vaping dev: No Substance use?: No Alcohol Use?: No Pt feels they are or have been: No Immunizations Up To Date Influenza Vaccine Up-to-Date: No; Not Current First/Initial COVID19 Vaccinat: NOT VACC, DECLINED Second COVID19 Vaccination Koko: UNK Third COVID19 Vaccination Date: UNK Past Medical History Surgery/Hospitalization HX: COPD, A FIB, HTN, NIDDIABETES HERNIA C SECT X 2, LAPAROTOMY, GASTRIC SLEEVE Surgeries: Yes (LAPAROTOMY, C-SECTIONS, HERNIA REPAIR x 8-9, CARDIAC ABLATION, SLEEVE ) Abdominal, Appendectomy, Cardiac, Section Respiratory: Yes (CHRONIC RESPIRATORY FAILURE) Sleep Apnea, COPD Cardiac: Yes Atrial Fibrillation, Chronic Edema/Swelling, Heart Attack, High Cholesterol, Hypertension Neurological: Yes Seizure Disorder Reproductive Disorders: Yes Female Reproductive Disorders: Ovarian Cyst Genitourinary: No Gastrointestinal: Yes (VENTRAL HERNIA) Abdominal Hernia, Gastroesophageal Reflux Musculoskeletal: Yes (NON-MOBILE/BED BOUND DUE TO MORBID OBESITY) Endocrine: Yes (MORBID OBESITY) Diabetes, Insulin dep HEENT: No Cancer: No Psychosocial: Yes Anxiety, Depression Integumentary: No Blood Disorders: No Family Medical History Alzheimer's disease 19 MOTHER Arthritis 19 MOTHER Asthma 19 FATHER 19 MOTHER Colon cancer 19 MOTHER Completed stroke 19 FATHER 19 MOTHER Deafness or hearing loss Dementia 19 MOTHER Diabetes mellitus 19 FATHER Glaucoma 19 FATHER 19 MOTHER Hypertension 19 FATHER 19 MOTHER Myocardial infarction 19 FATHER 19 MOTHER Respiratory disorder 19 MOTHER No Pertinent Family Hx SOCIAL HISTORY: -ETOH--RARE USE -DRUGS--THC, COCAINE (SNORTS IT), METHAMPHETAMINE (SNORTS IT)--ON 03/02/21 CLAIMS "NO DRUGS FOR 13 YEARS" BUT TESTED + FOR METHAPMPHETAMINES -SMOKES 3 PPD, NOW "VAPES" PAST SURGICAL HISTORY: -EXPLORATORY LAPAROTOMY FOR OVARIAN CYST -MULTIPLE HERNIA REPAIRS--5 OR 6 SURGERIES - X 2 -CARDIAC ABLATION FOR ATRIAL FIBRILLATION PT IS NON-MOBILE AND BED-BOUND AND REQUIRES A GILBERTO LIFT FOR TRANSFERS TO WHEELCHAIR PT REQUIRES 2 --24 HOUR CAREGIVERS WITH HER AT ALL TIMES. Physical Exam Vital Signs Vital Signs - First Documented 03/18/23 17:36 Temp 37.3 Pulse 69 Resp 20 B/P (MAP) 123/75 (91) Pulse Ox 95 O2 Delivery Room Air Capillary Refill : Height/Weight/BMI Height: 5'4.00" Weight: 396lbs. 0.0oz. 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 II-XII nml as tested, alert, normal mood/affect Skin: normal color, warm/dry Progress/Results/Core Measures Results/Orders Lab Results Laboratory Tests Test 03/18/23 18:00 03/18/23 18:10 03/18/23 18:45 Range/Units Urine Color YELLOW Urine Clarity CLEAR Urine pH 6.0 5-9 Urine Specific [place] 1.010 L 1.016-1.022 Urine Protein NEGATIVE NEGATIVE Urine Glucose (UA) NEGATIVE NEGATIVE Urine Ketones NEGATIVE NEGATIVE Urine Nitrite POSITIVE H NEGATIVE Urine Bilirubin NEGATIVE NEGATIVE Urine Urobilinogen 0.2 < = 1.0 MG/DL Urine Leukocyte Esterase 1+ H NEGATIVE Urine RBC (Auto) NEGATIVE NEGATIVE Urine RBC RARE /HPF Urine WBC 2-5 /HPF Urine Squamous Epithelial Cells 5-10 /HPF Urine Crystals NONE /LPF Urine Bacteria LARGE H /HPF Urine Casts NONE /LPF Urine Mucus NEGATIVE /LPF Urine Culture Indicated YES Influenza Type A (RT-PCR) Not Detected Not Detecte Influenza Type B (RT-PCR) Not Detected Not Detecte SARS-CoV-2 RNA (RT-PCR) Not Detected Not Detecte Group A Streptococcus Screen NEGATIVE NEGATIVE White Blood Count 8.0 4.3-11.0 10^3/uL Red Blood Count 4.73 3.80-5.11 10^6/uL Hemoglobin 13.3 11.5-16.0 g/dL Hematocrit 41 35-52 % Mean Corpuscular Volume 88 80-99 fL Mean Corpuscular Hemoglobin 28 25-34 pg Mean Corpuscular Hemoglobin Concent 32 32-36 g/dL Red Cell Distribution Width 15.4 H 10.0-14.5 % Platelet Count 189 130-400 10^3/uL Mean Platelet Volume 9.8 9.0-12.2 fL Immature Granulocyte % (Auto) 0 % Neutrophils (%) (Auto) 64 42-75 % Lymphocytes (%) (Auto) 27 12-44 % Monocytes (%) (Auto) 7 0-12 % Eosinophils (%) (Auto) 2 0-10 % Basophils (%) (Auto) 1 0-10 % Neutrophils # (Auto) 5.2 1.8-7.8 10^3/uL Lymphocytes # (Auto) 2.1 1.0-4.0 10^3/uL Monocytes # (Auto) 0.5 0.0-1.0 10^3/uL Eosinophils # (Auto) 0.2 0.0-0.3 10^3/uL Basophils # (Auto) 0.0 0.0-0.1 10^3/uL Immature Granulocyte # (Auto) 0.0 0.0-0.1 10^3/uL Sodium Level 140 135-145 MMOL/L Potassium Level 4.5 3.6-5.0 MMOL/L Chloride Level 106 98-107 MMOL/L Carbon Dioxide Level 23 21-32 MMOL/L Anion Gap 11 5-14 MMOL/L Blood Urea Nitrogen 8 7-18 MG/DL Creatinine 0.65 0.60-1.30 MG/DL Estimat Glomerular Filtration Rate 101 BUN/Creatinine Ratio 12 Glucose Level 118 H 70-105 MG/DL Calcium Level 8.6 8.5-10.1 MG/DL Corrected Calcium 9.1 8.5-10.1 MG/DL Total Bilirubin 0.4 0.1-1.0 MG/DL Aspartate Amino Transf (AST/SGOT) 25 5-34 U/L Alanine Aminotransferase (ALT/SGPT) 19 0-55 U/L Alkaline Phosphatase 106 40-136 U/L Total Protein 6.6 6.4-8.2 GM/DL Albumin 3.4 3.2-4.5 GM/DL Amylase Level 16 L 25-125 U/L Lipase 14 8-78 U/L Micro Results Microbiology 03/18/23 Throat Culture - Final, Complete No Beta Strep isolated 03/18/23 Urine Culture - Final, Complete Escherichia coli My Orders Orders - ROSALINE STOVER APRN Covid 19 Inhouse Test (03/18/23 17:42) Influenza A And B By Pcr (03/18/23 17:42) Rapid Strep A Screen (03/18/23 17:42) Ua Culture If Indicated (03/18/23 17:42) Urine Culture (03/18/23 18:00) Throat Culture Strep A Confirm (03/18/23 18:10) Comprehensive Metabolic Panel (03/18/23 18:35) Lipase (03/18/23 18:35) Amylase (03/18/23 18:35) Cbc With Automated Diff (03/18/23 18:35) Ct Abdomen/Pelvis W (03/18/23 18:35) Ed Iv/Invasive Line Start (03/18/23 18:35) Ns Iv 1000 Ml (Sodium Chloride 0.9%) (03/18/23 18:45) Diphenhydramine Injection (Benadryl Inje (03/18/23 18:45) Dexamethasone Injection (Decadron Injec (03/18/23 18:45) Ct Head Wo (03/18/23 19:08) Ceftriaxone Inj (Rocephin Inj) (03/18/23 19:15) Iohexol Injection (Omnipaque 350 Mg/Ml 1 (03/18/23 19:45) Received Contrast (Hold Metformin- Contr (03/18/23 19:45) Ns (Ivpb) (Sodium Chloride 0.9% Ivpb Bag (03/18/23 19:45) Medications Given in ED Vital Signs/I&O 03/18/23 03/18/23 17:36 20:55 Temp 37.3 36.0 Pulse 69 75 Resp 20 18 B/P (MAP) 123/75 (91) 112/86 Pulse Ox 95 95 O2 Delivery Room Air Room Air Blood Pressure Mean: 91 Progress Progress Note : Time: 18:41 Progress Note Patient seen and evaluated, resting comfortably in bed, no acute distress. Work-up initiated including COVID, flu, strep swabs for reports of generalized body aches, urinalysis, CBC, CMP, amylase, lipase, CT abdomen pelvis. Benadryl and Decadron ordered for allergy to contrast dye. IV fluids also ordered. Patient does not want any pain medication. 1909 labs reviewed. CBC and CMP grossly normal. Amylase and lipase normal. Covid, flu, and strep negative. UA shows positive nitrites, 1+ leukocytes, 2-5 WBCs, 5-10 squamous epithelial cells, large bacteria. Rocephin ordered. [address] abdomen shows large abdominal and pelvic wall hernia containing a majority of the patient's bowel loops, no evidence to suggest obstruction. CT head shows no acute intracranial abnormality, does show right sphenoid sinusitis. This could be contributing to patient's headache. Will treat for sinusitis. Pelvic exam performed, small amount of vaginal bleeding noted. Patient instructed to schedule a pap smear to have this evaluated. Discharge instructions and return precautions provided. Diagnostic Imaging Diagonstic Imaging: CT Plain Films/CT/US/NM/MRI: abdomen, pelvis Comments [facility]. [place], [place] NAME: CLEOPATRA SHERIFF [facility] REC#: [id number] PT STATUS: DEP ER : 1965 PHYSICIAN: ROSALINE STOVER APRN ADMIT DATE: 03/18/23/ER Signed Date of Exam:03/18/23 CT ABDOMEN/PELVIS W PROCEDURE: CT abdomen and pelvis with contrast. TECHNIQUE: Multiple contiguous axial images were obtained through the abdomen and pelvis after administration of intravenous contrast. Auto Exposure Controls were utilized during the CT exam to meet ALARA standards for radiation dose reduction. All CT scans use one or more of the following dose optimizing techniques: automated exposure control, MA and/or KvP adjustment based on patient size and exam type or iterative reconstruction. INDICATION: Abdominal pain. Abdominal hernias. COMPARISON: 06/07/2022. FINDINGS: The lung bases are clear. There is no pneumonia or edema. There is no pleural or pericardial effusion. The liver demonstrates no focal abnormality. Gallbladder nondistended without radiodense stones or biliary dilatation. Hepatic and portal veins are patent. The pancreas is normal. The spleen is unremarkable. There is no adrenal mass. The kidneys are nonobstructed. Large wide necked right anterior abdominal wall and midline abdominal and pelvic wall defect containing the majority of the patient's small and large bowel is not significantly changed from the prior examination. There is no identified fluid or inflammation within the hernia sac or findings of bowel thickening or bowel dilation to suggest an obstruction. Urinary bladder and uterus appear unchanged with apparent large uterine fibroid. There is no pelvic free fluid. There is no finding of adenopathy. The aorta is normal in caliber. There are degenerative features within the spine without acute osseous abnormality. IMPRESSION: 1. Large wide necked abdominal and pelvic wall hernia containing the majority of the patient's bowel loops. There are no features of bowel thickening, free fluid or evidence to suggest obstruction. No focal inflammation evident within the fat throughout the hernia sac. These findings are not significantly changed from the prior exam. 2. There is no finding of an acute inflammatory or obstructive process. Dictated by: Dictated on workstation # [id number] Dict: 03/18/231942 Trans: 03/18/232140 PJE [id number] Interpreted by: REUBEN VÁSQUEZ MD Electronically signed by: REUBEN VÁSQUEZ MD 03/18/232140 Diagonstic Imaging: CT Plain Films/CT/US/NM/MRI: head Comments [facility] [place], [place] NAME: CLEOPATRA [facility] REC#: [id number] PT STATUS: DEP ER : 1965 PHYSICIAN: ROSALINE STOVER APRN ADMIT DATE: 03/18/23/ER Signed Date of Exam:03/18/23 CT HEAD WO PROCEDURE: CT head without contrast. TECHNIQUE: Multiple contiguous axial images were obtained through the brain without the use of intravenous contrast. Auto Exposure Controls were utilized during the CT exam to meet ALARA standards for radiation dose reduction. INDICATION: Headache. History of aneurysm. COMPARISON: CT angio of the head from 08/07/2021. FINDINGS: There is no CT finding of acute intracranial hemorrhage. There is no subarachnoid hemorrhage. There is no intracranial mass effect or shift. There is no hydrocephalus. There is no abnormal extra-axial collection. There is no territorial loss of multani-white differentiation. There is no finding of edema. The basilar cisterns are patent. Posterior fossa demonstrates no acute process. The mastoid air cells are clear. Paranasal sinuses demonstrates some mucosal thickening within the right sphenoid sinus. Orbital contents are normal. There is no calvarial abnormality. IMPRESSION: 1. No CT evidence of an acute intracranial abnormality. Specifically, there is no finding of intracranial hemorrhage. 2. Right sphenoid sinusitis. Dictated by: Dictated on workstation # [id number] Dict: 03/18/231938 Trans: 03/18/232140 [facility] [id number] Interpreted by: REUBEN VÁSQUEZ MD Electronically signed by: REUBEN VÁSQUEZ MD 03/18/232140 Departure Impression Primary Impression: Urinary tract infection Additional Impressions: Sinusitis Vaginal bleeding Hernia Disposition: HOME, SELF-CARE Condition: Stable Departure-Patient Inst. Decision time for Depature: 20:48 Referrals: [facility] [place] ([place]/Family) Primary Care Physician Patient Instructions: Urinary Tract Infection, Adult ED, Sinusitis, Adult (DC), Bleeding After Menopause Add. Discharge Instructions: You did have bleeding coming from your vagina, you need to schedule a Pap smear to have this evaluated. Complete both antibiotics as prescribed. One is for urinary tract infection and one is for your sinus infection. Make sure you are drinking plenty of water, or noncaffeinated, low sugar beverages. Follow-up with your primary care provider. Return for significant vaginal bleeding, dizziness, passing out, fever, low back pain, or any other new, concerning, or worsening symptoms. All discharge instructions reviewed with patient and/or family. Voiced understa nding. Scripts Cephalexin (Cephalexin) 500 Mg Tablet 500 MG PO BID for 7 Days, #14 TAB 0 Refills Prov: ROSALINE STOVER APRN 03/18/23 Amoxicillin/Potassium Clav (Amox Tr-K Clv 875-125 mg Tab) 875 Mg-125 Mg Tablet 1 EACH PO BID for 7 Days, #14 TAB 0 Refills Prov: ROSALINE STOVER APRN 03/18/23 ROSALINE STOVER APRN March 18, 2023 18:42
[2023-03-18] MEDS ORDERED: diphenhydrAMINE 50 MG/ML INJ (BENADRYL) IVP ONE (18:45)
[2023-03-18] MEDS ORDERED: NS IV 1000 ML 1,000 ML IV SCH (18:45)
[2023-03-18 19:00] LABS: BASOPHILS % (AUTO) 1 % (0-10); EOSINOPHILS # (AUTO) 0.2 10^3/uL (0.0-0.3); EOSINOPHILS % (AUTO) 2 % (0-10); HEMATOCRIT 41 % (35-52); HEMOGLOBIN 13.3 g/dL (11.5-16.0); LYMPHOCYTES # (AUTO) 2.1 10^3/uL (1.0-4.0); LYMPHOCYTES % (AUTO) 27 % (12-44); MEAN CORPUSCULAR HEMOGLOBIN 28 pg (25-34); MEAN CORPUSCULAR HGB CONC 32 g/dL (32-36); MEAN CORPUSCULAR VOLUME 88 fL (80-99); MEAN PLATELET VOLUME 9.8 fL (9.0-12.2); MONOCYTES # (AUTO) 0.5 10^3/uL (0.0-1.0); MONOCYTES % (AUTO) 7 % (0-12); NEUTROPHILS # (AUTO) 5.2 10^3/uL (1.8-7.8); NEUTROPHILS % (AUTO) 64 % (42-75); PLATELET COUNT 189 10^3/uL (130-400)
[2023-03-18 19:05] LABS: ALBUMIN 3.4 GM/DL (3.2-4.5); POTASSIUM 4.5 MMOL/L (3.6-5.0)
[2023-03-18 19:06] LABS: CALCIUM 8.6 MG/DL (8.5-10.1)
[2023-03-18 19:08] LABS: TOTAL PROTEIN 6.6 GM/DL (6.4-8.2)
[2023-03-18 19:09] LABS: BILIRUBIN,TOTAL 0.4 MG/DL (0.1-1.0)
[2023-03-18 19:11] LABS: CREATININE SERUM 0.65 MG/DL (0.60-1.30)
[2023-03-18] MEDS ORDERED: cefTRIAXone INJ 2,000 MG in NS (IVPB) 50 ML IV ONE (19:15)
[2023-03-18] MEDS ORDERED: HOLD METFORMIN - RECEIVED CONTRAST 20 ML VIAL IV SCH (19:45)
[2023-03-18] MEDS ORDERED: NS 100 ML (IVPB) BAG IV ONE (19:45)
[2023-03-18] MEDS ORDERED: IOHEXOL 350 MG/ML 100 ML (OMNIPAQUE 350) VIAL IV ONE (19:45)
--- NOTE | 2023-03-18 20:00 | Diagnostic Imaging Report ---
PROCEDURE: CT head without contrast. TECHNIQUE: Multiple contiguous axial images were obtained through the brain without the use of intravenous contrast. Auto Exposure Controls were utilized during the CT exam to meet ALARA standards for radiation dose reduction. INDICATION: Headache. History of aneurysm. COMPARISON: CT angio of the head from 08/07/2021. FINDINGS: There is no CT finding of acute intracranial hemorrhage. There is no subarachnoid hemorrhage. There is no intracranial mass effect or shift. There is no hydrocephalus. There is no abnormal extra-axial collection. There is no territorial loss of multani-white differentiation. There is no finding of edema. The basilar cisterns are patent. Posterior fossa demonstrates no acute process. The mastoid air cells are clear. Paranasal sinuses demonstrates some mucosal thickening within the right sphenoid sinus. Orbital contents are normal. There is no calvarial abnormality. IMPRESSION: 1. No CT evidence of an acute intracranial abnormality. Specifically, there is no finding of intracranial hemorrhage. 2. Right sphenoid sinusitis. Dictated by: Dictated on workstation # [id number]
--- NOTE | 2023-03-18 20:04 | Diagnostic Imaging Report ---
PROCEDURE: CT abdomen and pelvis with contrast. TECHNIQUE: Multiple contiguous axial images were obtained through the abdomen and pelvis after administration of intravenous contrast. Auto Exposure Controls were utilized during the CT exam to meet ALARA standards for radiation dose reduction. All CT scans use one or more of the following dose optimizing techniques: automated exposure control, MA and/or KvP adjustment based on patient size and exam type or iterative reconstruction. INDICATION: Abdominal pain. Abdominal hernias. COMPARISON: 06/07/2022. FINDINGS: The lung bases are clear. There is no pneumonia or edema. There is no pleural or pericardial effusion. The liver demonstrates no focal abnormality. Gallbladder nondistended without radiodense stones or biliary dilatation. Hepatic and portal veins are patent. The pancreas is normal. The spleen is unremarkable. There is no adrenal mass. The kidneys are nonobstructed. Large wide necked right anterior abdominal wall and midline abdominal and pelvic wall defect containing the majority of the patient's small and large bowel is not significantly changed from the prior examination. There is no identified fluid or inflammation within the hernia sac or findings of bowel thickening or bowel dilation to suggest an obstruction. Urinary bladder and uterus appear unchanged with apparent large uterine fibroid. There is no pelvic free fluid. There is no finding of adenopathy. The aorta is normal in caliber. There are degenerative features within the spine without acute osseous abnormality. IMPRESSION: 1. Large wide necked abdominal and pelvic wall hernia containing the majority of the patient's bowel loops. There are no features of bowel thickening, free fluid or evidence to suggest obstruction. No focal inflammation evident within the fat throughout the hernia sac. These findings are not significantly changed from the prior exam. 2. There is no finding of an acute inflammatory or obstructive process. Dictated by: Dictated on workstation # [id number]
[2023-03-18] MEDS ORDERED: CEPH500T PO (20:23)
[2023-03-18] MEDS ORDERED: AMOX1TAB12 PO (20:23)
[2023-03-18 20:55] VITALS: BP 112/86
== END 2023-03-18 21:14 | disposition home or self-care (01) ==
LOC: EDUNIT# 17:36 → ER 17:37
DX: N39.0 Urinary tract infection, site not specified (principal); J32.9 Chronic sinusitis, unspecified; N93.9 Abnormal uterine and vaginal bleeding, unspecified; K43.9 Ventral hernia without obstruction or gangrene; E66.01 Morbid (severe) obesity due to excess calories; F17.210 Nicotine dependence, cigarettes, uncomplicated; F17.290 Nicotine dependence, other tobacco product, uncomplicated; Z68.44 Body mass index [BMI] 60.0-69.9, adult; Z88.0 Allergy status to penicillin; Z91.040 Latex allergy status; Z20.822 Contact with and (suspected) exposure to COVID-19; Z28.310 Unvaccinated for COVID-19
CPT/HCPCS: 36415; 51701; 70450; 74177; 80053; 81000; 82150; 83690; 85025; 87077; 87088; 87186; 87430; 87636

== ENCOUNTER 2023-03-31 09:43 | Emergency (ER) | payer OTHER, MEDICAID ==
[~2023-03-31] VITALS: Ht 162.5 cm; Wt 163.0 kg
[~2023-03-31 09:43] MED LIST changes: +AMOX1TAB12 PO
--- NOTE | 2023-03-31 09:55 | ED General ---
General Stated Complaint: ABD PAIN Source of Information: Patient, EMS History of Present Illness Date Seen by Provider: March 31, 2023 Time Seen by Provider: 09:54 Initial Comments Patient is a 57-year-old female who presents to the emergency room from home chief complaint of abdominal pain, nausea and vomiting. She states she has chronic diarrhea. She has chronic very large ventral abdominal hernias. Morbid obesity which precludes her from activity. She states she has vomited multiple times over the last 2 to 3 days. She has not taken pain medicine at home. No fevers or chills. No blood in her urine or stool. No blood in her vomit. She states she ate some rice last night to try and improve her diarrhea but it did not help. Rates her pain at "10 of 10". Timing/Duration: 2-3 Days Severity: Severe Associated Systoms: Malaise, Nausea/Vomiting Allergies and Home Medications Allergies Coded Allergies: latex (Verified Allergy, Intermediate, RASH, ITCHING, 03/02/11) vancomycin (Verified Allergy, Intermediate, HIVES, 03/02/11) iodine (Verified Allergy, Mild, "ILL", 03/02/11) lorazepam (Verified Allergy, Unknown, 07/12/17) phenobarbital (Verified Allergy, Unknown, 03/09/06) phenytoin (Verified Allergy, Unknown, 07/12/17) Patient Home Medication List Home Medication List Reviewed: Yes Albuterol Sulfate (Albuterol Sulfate) 2.5 Mg/3 Ml Vial.neb, 2.5 MG NEB Q4H PRN for SHORTNESS OF BREATH, (Reported) Entered as Reported by: CHARISSA PAYAN on 07/13/17 1051 Amoxicillin/Potassium Clav (Amox Tr-K Clv 875-125 mg Tab) 875 Mg-125 Mg Tablet, 1 EACH PO BID Prescribed by: Rosaline De Jesus on 03/18/232022 Apixaban (Eliquis) 5 Mg Tablet, 5 MG PO BID, (Reported) Entered as Reported by: RADU CASTILLO on 05/11/21 114 Atorvastatin Calcium (Atorvastatin Calcium) 40 Mg Tablet, 40 MG PO DAILY, (Reported) Entered as Reported by: RADU CASTILLO on 05/11/21 1142 Cephalexin (Cephalexin) 500 Mg Capsule, 500 MG PO BID Prescribed by: Ana Finn on 09/17/22 1731 Cephalexin (Cephalexin) 500 Mg Tablet, 500 MG PO BID Prescribed by: Rosaline De Jesus on 03/18/232022 Docusate Sodium (Stool Softener) 100 Mg Tablet, 100-200 MG PO BID PRN for CONSTIPATION-1ST LINE, (Reported) Entered as Reported by: RADU CASTILLO on 05/11/21 1142 Ergocalciferol (Vitamin D2) (Vitamin D2) 1,250 Mcg Capsule, 1,250 MCG PO FRI, (Reported) Entered as Reported by: RADU CASTILLO on 05/11/21 1142 Fluticasone Propion/Salmeterol (Fluticasone-Salmeterol 250-50) 1 Each Blst.w.dev, 1 PUFF INH BID PRN for SHORTNESS OF BREATH, (Reported) Entered as Reported by: RADU CASTILLO on 05/11/21 1142 Fluticasone Propionate (Flonase Allergy Relief) 9.9 Ml Evans.susp, 1 SPRAY NSEACH BID PRN for CONGESTION, (Reported) Entered as Reported by: RADU CASTILLO on 05/11/21 114 Furosemide (Furosemide) 40 Mg Tablet, 40 MG PO BID, (Reported) Entered as Reported by: CHARISSA PAYAN on 07/13/17 1051 Hydrocodone Bit/Acetaminophen (HYDROcodone/APAP 10/325 TABLET) 1 Ea Tab, 1-2 EA PO Q6H PRN for pain Prescribed by: WOOD ORTIZ on 12/03/21 1548 Hydroxyzine Pamoate (Hydroxyzine Pamoate) 25 Mg Capsule, 25 MG PO HS PRN for ANXIETY, (Reported) Entered as Reported by: CHARISSA PAYAN on 07/13/17 1053 Metformin HCl (Metformin HCl) 1,000 Mg Tablet, 1,000 MG PO BID, (Reported) Entered as Reported by: RADU CASTILLO on 05/11/21 1142 Metoprolol Succinate (Metoprolol Succinate) 25 Mg Tab.er.24h, 25 MG PO DAILY, (Reported) Entered as Reported by: RADU CASTILLO on 05/11/21 1142 Ondansetron (Ondansetron Odt) 4 Mg Tab.rapdis, 4-8 MG PO Q6H PRN for NAUSEA/VOMITING Prescribed by: WOOD ORTIZ on 12/03/21 1548 Oxycodone HCl/Acetaminophen (Percocet 10-325 mg Tablet) 1 Each Tablet, 1 TAB PO Q4H PRN for PAIN Prescribed by: RAQUEL WEEMS on 12/08/21 1458 Oxycodone Hcl (Oxyir Tablet) 5 Mg Tab, 5 MG PO Q8H PRN for PAIN-MODERATE (5-7) Prescribed by: VALERI ARROYO on 05/13/21 1115 Pantoprazole Sodium (Pantoprazole Sodium) 20 Mg Tablet.dr, 20 MG PO DAILY, (Reported) Entered as Reported by: RADU CASTILLO on 05/11/21 1142 Potassium Chloride (Klor-Con M20) 20 Meq Tab.er.prt, 20 MEQ PO BID, (Reported) Entered as Reported by: RADU CASTILLO on 05/11/21 1147 Sertraline HCl (Sertraline HCl) 100 Mg Tablet, 100 MG PO DAILY, (Reported) Entered as Reported by: RADU CASTILLO on 05/11/21 1142 Silver Sulfadiazine (Ssd) 25 Gm Cream..g., 1 APPLIC TOP BID PRN for SKIN IRRITATION, (Reported) Entered as Reported by: RADU CASTILLO on 05/11/21 1142 Sulfamethoxazole/Trimethoprim (Bactrim Ds Tablet) 1 Each Tablet, 1 EACH PO BID Prescribed by: VALERI ARROYO on 06/08/22 0935 Sumatriptan Succinate (Sumatriptan Succinate) 50 Mg Tablet, 50 MG PO UD PRN for MIGRAINE, (Reported) Entered as Reported by: RADU CASTILLO on 05/11/21 1142 [oxy] Prescribed by: RAQUEL WEEMS on 12/08/21 1455 Review of Systems Review of Systems Constitutional: see HPI Respiratory: no symptoms reported Cardiovascular: no symptoms reported Gastrointestinal: abdominal pain, diarrhea, nausea, vomiting Genitourinary: no symptoms reported Musculoskeletal: other (right foot, 2nd toe, sore and bruised after standing yesterday) Skin: no symptoms reported Psychiatric/Neurological: Anxiety Past Pcoczlq-Itqnuf-Uugrmo Hx Immunizations Up To Date First/Initial COVID19 Vaccinat: NOT VACC, DECLINED Second COVID19 Vaccination Koko: UNK Third COVID19 Vaccination Date: UNK Past Medical History Surgery/Hospitalization HX: COPD, A FIB, HTN, NIDDIABETES HERNIA C SECT X 2, LAPAROTOMY, GASTRIC SLEEVE Surgeries: Yes (LAPAROTOMY, C-SECTIONS, HERNIA REPAIR x 8-9, CARDIAC ABLATION, SLEEVE ) Abdominal, Appendectomy, Cardiac, Section Respiratory: Yes (CHRONIC RESPIRATORY FAILURE) Sleep Apnea, COPD Cardiac: Yes Atrial Fibrillation, Chronic Edema/Swelling, Heart Attack, High Cholesterol, Hypertension Neurological: Yes Seizure Disorder Reproductive Disorders: Yes Female Reproductive Disorders: Ovarian Cyst Genitourinary: No Gastrointestinal: Yes (VENTRAL HERNIA) Abdominal Hernia, Gastroesophageal Reflux Musculoskeletal: Yes (NON-MOBILE/BED BOUND DUE TO MORBID OBESITY) Endocrine: Yes (MORBID OBESITY) Diabetes, Insulin dep HEENT: No Cancer: No Psychosocial: Yes Anxiety, Depression Integumentary: No Blood Disorders: No Family Medical History Alzheimer's disease 19 MOTHER Arthritis 19 MOTHER Asthma 19 FATHER 19 MOTHER Colon cancer 19 MOTHER Completed stroke 19 FATHER 19 MOTHER Deafness or hearing loss Dementia 19 MOTHER Diabetes mellitus 19 FATHER Glaucoma 19 FATHER 19 MOTHER Hypertension 19 FATHER 19 MOTHER Myocardial infarction 19 FATHER 19 MOTHER Respiratory disorder 19 MOTHER No Pertinent Family Hx SOCIAL HISTORY: -ETOH--RARE USE -DRUGS--THC, COCAINE (SNORTS IT), METHAMPHETAMINE (SNORTS IT)--ON 03/02/21 CLAIMS "NO DRUGS FOR 13 YEARS" BUT TESTED + FOR METHAPMPHETAMINES -SMOKES 3 PPD, NOW "VAPES" PAST SURGICAL HISTORY: -EXPLORATORY LAPAROTOMY FOR OVARIAN CYST -MULTIPLE HERNIA REPAIRS--5 OR 6 SURGERIES - X 2 -CARDIAC ABLATION FOR ATRIAL FIBRILLATION PT IS NON-MOBILE AND BED-BOUND AND REQUIRES A GILBERTO LIFT FOR TRANSFERS TO WHEELCHAIR PT REQUIRES 2 --24 HOUR CAREGIVERS WITH HER AT ALL TIMES. Physical Exam Vital Signs Vital Signs - First Documented 03/31/23 09:45 Temp 36.7 Pulse 74 Resp 18 B/P (MAP) 127/87 (100) Pulse Ox 97 Capillary Refill : Height, Weight, BMI Height: 5'4.00" Weight: 396lbs. 0.0oz. 179.255023tt; 62.00 BMI Method:Estimated General Appearance: Anxious, Mild Distress, Obese HEENT: PERRL/EOMI Neck: Normal Inspection Respiratory: Lungs Clear, Normal Breath Sounds, No Accessory Muscle Use, No Respiratory Distress Cardiovascular: Regular Rate, Rhythm, Normal Peripheral Pulses Gastrointestinal: Soft, Other (Multiple large ventral hernias all seem soft. Right-sided very tender to palpation. Some hyperactive bowel sounds in the right sided ventral hernias.) Extremity: Normal Inspection, No Calf Tenderness Neurologic/Psychiatric: Alert, Oriented x3, No Motor/Sensory Deficits, Normal Mood/Affect Skin: Normal Color, Warm/Dry Progress/Results/Core Measures Suspected Sepsis SIRS Temperature: Pulse: Respiratory Rate: Laboratory Tests 03/31/23 10:30: White Blood Count 8.6 Blood Pressure / Mean: Laboratory Tests 03/31/23 10:30: Creatinine 0.71, Platelet Count 215 Results/Orders Lab Results Laboratory Tests Test 03/31/23 10:30 Range/Units White Blood Count 8.6 4.3-11.0 10^3/uL Red Blood Count 5.24 H 3.80-5.11 10^6/uL Hemoglobin 14.4 11.5-16.0 g/dL Hematocrit 46 35-52 % Mean Corpuscular Volume 88 80-99 fL Mean Corpuscular Hemoglobin 28 25-34 pg Mean Corpuscular Hemoglobin Concent 31 L 32-36 g/dL Red Cell Distribution Width 15.7 H 10.0-14.5 % Platelet Count 215 130-400 10^3/uL Mean Platelet Volume 9.4 9.0-12.2 fL Immature Granulocyte % (Auto) 1 % Neutrophils (%) (Auto) 67 42-75 % Lymphocytes (%) (Auto) 25 12-44 % Monocytes (%) (Auto) 5 0-12 % Eosinophils (%) (Auto) 2 0-10 % Basophils (%) (Auto) 1 0-10 % Neutrophils # (Auto) 5.7 1.8-7.8 10^3/uL Lymphocytes # (Auto) 2.2 1.0-4.0 10^3/uL Monocytes # (Auto) 0.5 0.0-1.0 10^3/uL Eosinophils # (Auto) 0.1 0.0-0.3 10^3/uL Basophils # (Auto) 0.1 0.0-0.1 10^3/uL Immature Granulocyte # (Auto) 0.0 0.0-0.1 10^3/uL Sodium Level 140 135-145 MMOL/L Potassium Level 4.2 3.6-5.0 MMOL/L Chloride Level 104 98-107 MMOL/L Carbon Dioxide Level 27 21-32 MMOL/L Anion Gap 9 5-14 MMOL/L Blood Urea Nitrogen 11 7-18 MG/DL Creatinine 0.71 0.60-1.30 MG/DL Estimat Glomerular Filtration Rate 98 BUN/Creatinine Ratio 15 Glucose Level 139 H 70-105 MG/DL Calcium Level 9.0 8.5-10.1 MG/DL My Orders Orders - ROCKY SHINE MD Ed Iv/Invasive Line Start (03/31/23 10:15) Cbc With Automated Diff (03/31/23 10:15) Basic Metabolic Panel (03/31/23 10:15) Ondansetron Injection (Zofran Injectio (03/31/23 10:15) Fentanyl Inj (Sublimaze Injection) (03/31/23 10:15) Ns Iv 500 Ml (Sodium Chloride 0.9%) (03/31/23 10:15) Ketorolac Injection (Toradol Injection) (03/31/23 11:45) Medications Given in ED Current Medications Medications Dose Ordered Sig/Sy Route Start Time Stop Time Status Last Admin Dose Admin Fentanyl Citrate 50 mcg ONCE ONCE IVP 03/31/23 10:15 03/31/23 10:17 DC 03/31/23 10:41 50 MCG Ketorolac Tromethamine 15 mg ONCE ONCE IVP 03/31/23 11:45 03/31/23 11:46 DC 03/31/23 11:41 15 MG Ondansetron HCl 8 mg ONCE ONCE IVP 03/31/23 10:15 03/31/23 10:17 DC 03/31/23 10:41 8 MG Vital Signs/I&O 03/31/23 09:45 Temp 36.7 Pulse 74 Resp 18 B/P (MAP) 127/87 (100) Pulse Ox 97 Capillary Refill : Progress Note #1: Time: 11:34 Progress Note Patient re-evaluated, resting comfortably, however, when I palpate that right abdomen - she still has fairly significant pain.. No vomiting. mild nausea. VSS Progress Note #2: Time: 12:44 Progress Note IV toradol helped with patient's pain. She feels much better and would like to be discharged. Patient evaluation today includes physical exam, CBC, chemistry. Pertinent physical exam morbidly obese female mild distress due to abdominal pain. Very large ventral hernias palpated, tender mostly on the right. They are all soft and primarily reducible. Bowel sounds are present. She is not actively vomiting in the emergency department. No significant lower extremity edema. Vital signs are stable. Differential diagnosis based on history and physical, ileus versus partial small bowel obstruction versus incarcerated hernia. Patient's labs reviewed, CBC and chemistry are within normal limits. Consideration for urinalysis however the patient endorses no dysuria or frequency. Patient treated with pain medications in the emergency department and monitored. She had resolution of her pain. Consideration for CT abdomen pelvis however low clinical concern for acute intra-abdominal pathology as well as the patient's size precludes CT. She has not vomited. Will give oral challenge prior to discharge. Recommend close follow-up with her primary care physician, the patient may indeed need to be transferred for a CT that can handle her weight/girth. She would not be a good surgical candidate. At this time the patient desires discharged home. Again we will oral challenge her and if she can tolerate fluids will discharge. Departure Impression Primary Impression: Abdominal pain Qualified Codes: R10.84 - Generalized abdominal pain Disposition: 01 HOME, SELF-CARE Condition: Improved Departure-Patient Inst. Decision time for Depature: 12:53 Referrals: [facility] [place] (PCP/Family) Primary Care Physician Patient Instructions: Abdominal Pain, Adult ED Add. Discharge Instructions: Continue your daily medications at home as prescribed by your primary care doctor. If you develop worsening pain, with fever, persistent vomiting, blood in your vomit or stool - please come back to the Emergency Department for re-evaluation. Please call your doctor for a follow up appointment next week. Copy Copies To 1: [place] KATHRYN M MD March 31, 2023 09:55
[2023-03-31] MEDS ORDERED: ONDANSETRON 4 MG/2 ML (SDV) Z0FRAN IVP ONE (10:15)
[2023-03-31] MEDS ORDERED: fentaNYL INJ 100 MCG/2 ML AMP IVP ONE (10:15)
[2023-03-31] MEDS ORDERED: NS IV 500 ML 500 ML IV STA (10:15)
[2023-03-31 10:55] LABS: BASOPHILS # (AUTO) 0.1 10^3/uL (0.0-0.1); BASOPHILS % (AUTO) 1 % (0-10); EOSINOPHILS # (AUTO) 0.1 10^3/uL (0.0-0.3); EOSINOPHILS % (AUTO) 2 % (0-10); HEMATOCRIT 46 % (35-52); HEMOGLOBIN 14.4 g/dL (11.5-16.0); LYMPHOCYTES # (AUTO) 2.2 10^3/uL (1.0-4.0); LYMPHOCYTES % (AUTO) 25 % (12-44); MEAN CORPUSCULAR HEMOGLOBIN 28 pg (25-34); MEAN CORPUSCULAR HGB CONC 31 g/dL (32-36); MEAN CORPUSCULAR VOLUME 88 fL (80-99); MEAN PLATELET VOLUME 9.4 fL (9.0-12.2); MONOCYTES # (AUTO) 0.5 10^3/uL (0.0-1.0); MONOCYTES % (AUTO) 5 % (0-12); NEUTROPHILS # (AUTO) 5.7 10^3/uL (1.8-7.8); NEUTROPHILS % (AUTO) 67 % (42-75); PLATELET COUNT 215 10^3/uL (130-400); WHITE BLOOD COUNT 8.6 10^3/uL (4.3-11.0)
[2023-03-31 11:06] LABS: POTASSIUM 4.2 MMOL/L (3.6-5.0)
[2023-03-31 11:12] LABS: CREATININE SERUM 0.71 MG/DL (0.60-1.30)
[2023-03-31] MEDS ORDERED: KETOROLAC 15 MG/ML VIAL IVP ONE (11:45)
[2023-03-31] MEDS ORDERED: PROMETHAZINE INJ 25 MG/ML (PHENERGAN) AMP IVP ONE (13:30)
[2023-03-31 13:40] VITALS: BP 123/60
== END 2023-03-31 13:40 | disposition home or self-care (01) ==
LOC: EDUNIT# 09:43 → ER 09:45
DX: K43.9 Ventral hernia without obstruction or gangrene (principal); E66.01 Morbid (severe) obesity due to excess calories; E11.9 Type 2 diabetes mellitus without complications; Z79.4 Long term (current) use of insulin; Z68.44 Body mass index [BMI] 60.0-69.9, adult; Z91.040 Latex allergy status; Z90.49 Acquired absence of other specified parts of digestive tract; Z98.890 Other specified postprocedural states
CPT/HCPCS: 36415; 80048; 85025

== ENCOUNTER 2023-04-19 02:01 | Emergency (ER) | payer OTHER, MEDICAID ==
[~2023-04-19] VITALS: Ht 162.6 cm; Wt 167.8 kg
[2023-04-19 02:01] VITALS: BP 142/70
[2023-04-19] MEDS ORDERED: KETOROLAC 30 MG/ML VIAL IVP STA (02:19)
--- NOTE | 2023-04-19 02:22 | ED Abdominal Pain ---
General Chief Complaint: Abdominal/GI Problems Stated Complaint: ABD PAIN History of Present Illness Date Seen by Provider: Apr 19, 2023 Time Seen by Provider: 02:22 Initial Comments 57-year-old female presents with right sided abdominal pain. Patient reports that she feels like her bowel has "popped out into her hernia "patient is extremely obese and has had 9 prior abdominal surgeries. She reports that this happens prior many times with prior ER visits when it "spontaneously popped back in. Patient reports she was just in bed and rolling over what happened. Allergies and Home Medications Allergies Coded Allergies: latex (Verified Allergy, Intermediate, RASH, ITCHING, 03/02/11) vancomycin (Verified Allergy, Intermediate, HIVES, 03/02/11) iodine (Verified Allergy, Mild, "ILL", 03/02/11) lorazepam (Verified Allergy, Unknown, 07/12/17) phenobarbital (Verified Allergy, Unknown, 03/09/06) phenytoin (Verified Allergy, Unknown, 07/12/17) Patient Home Medication List Home Medication List Reviewed: Yes Albuterol Sulfate (Albuterol Sulfate) 2.5 Mg/3 Ml Vial.neb, 2.5 MG NEB Q4H PRN for SHORTNESS OF BREATH, (Reported) Entered as Reported by: CHARISSA PAYAN on 07/13/17 1051 Amoxicillin/Potassium Clav (Amox Tr-K Clv 875-125 mg Tab) 875 Mg-125 Mg Tablet, 1 EACH PO BID Prescribed by: Rosaline De Jesus on 03/18/232022 Apixaban (Eliquis) 5 Mg Tablet, 5 MG PO BID, (Reported) Entered as Reported by: RADU CASTILLO on 05/11/21 114 Atorvastatin Calcium (Atorvastatin Calcium) 40 Mg Tablet, 40 MG PO DAILY, (Reported) Entered as Reported by: RADU CASTILLO on 05/11/21 1142 Cephalexin (Cephalexin) 500 Mg Capsule, 500 MG PO BID Prescribed by: Ana Finn on 09/17/22 1731 Cephalexin (Cephalexin) 500 Mg Tablet, 500 MG PO BID Prescribed by: Rosaline De Jesus on 03/18/232022 Docusate Sodium (Stool Softener) 100 Mg Tablet, 100-200 MG PO BID PRN for CONSTIPATION-1ST LINE, (Reported) Entered as Reported by: RADU CASTILLO on 05/11/21 1142 Ergocalciferol (Vitamin D2) (Vitamin D2) 1,250 Mcg Capsule, 1,250 MCG PO FRI, (Reported) Entered as Reported by: RADU CASTILLO on 05/11/21 1142 Fluticasone Propion/Salmeterol (Fluticasone-Salmeterol 250-50) 1 Each Blst.w.dev, 1 PUFF INH BID PRN for SHORTNESS OF BREATH, (Reported) Entered as Reported by: RADU CASTILLO on 05/11/21 1142 Fluticasone Propionate (Flonase Allergy Relief) 9.9 Ml [place].susp, 1 SPRAY NSEACH BID PRN for CONGESTION, (Reported) Entered as Reported by: RADU CASTILLO on 05/11/21 1142 Furosemide (Furosemide) 40 Mg Tablet, 40 MG PO BID, (Reported) Entered as Reported by: CHARISSA PAYAN on 07/13/17 1051 Hydrocodone Bit/Acetaminophen (HYDROcodone/APAP 10/325 TABLET) 1 Ea Tab, 1-2 EA PO Q6H PRN for pain Prescribed by: WOOD ORTIZ on 12/03/21 1548 Hydroxyzine Pamoate (Hydroxyzine Pamoate) 25 Mg Capsule, 25 MG PO HS PRN for ANXIETY, (Reported) Entered as Reported by: CHARISSA PAYAN on 07/13/17 1053 Metformin HCl (Metformin HCl) 1,000 Mg Tablet, 1,000 MG PO BID, (Reported) Entered as Reported by: RADU CASTILLO on 05/11/21 1142 Metoprolol Succinate (Metoprolol Succinate) 25 Mg Tab.er.24h, 25 MG PO DAILY, ( Reported) Entered as Reported by: RADU CASTILLO on 05/11/21 1142 Ondansetron (Ondansetron Odt) 4 Mg Tab.rapdis, 4-8 MG PO Q6H PRN for NAUSEA/VOMITING Prescribed by: WOOD ORTIZ on 12/03/21 1548 Oxycodone HCl/Acetaminophen (Percocet 10-325 mg Tablet) 1 Each Tablet, 1 TAB PO Q4H PRN for PAIN Prescribed by: RAQUEL WEEMS on 12/08/21 1458 Oxycodone Hcl (Oxyir Tablet) 5 Mg Tab, 5 MG PO Q8H PRN for PAIN-MODERATE (5-7) Prescribed by: VALERI ARROYO on 05/13/21 1115 Pantoprazole Sodium (Pantoprazole Sodium) 20 Mg Tablet.dr, 20 MG PO DAILY, (Reported) Entered as Reported by: RADU CASTILLO on 05/11/21 1142 Potassium Chloride (Klor-Con M20) 20 Meq Tab.er.prt, 20 MEQ PO BID, (Reported) Entered as Reported by: RADU CASTILLO on 05/11/21 1147 Sertraline HCl (Sertraline HCl) 100 Mg Tablet, 100 MG PO DAILY, (Reported) Entered as Reported by: RADU CASTILLO on 05/11/21 1142 Silver Sulfadiazine (Ssd) 25 Gm Cream..g., 1 APPLIC TOP BID PRN for SKIN IRRITATION, (Reported) Entered as Reported by: RADU CASTILLO on 05/11/21 1142 Sulfamethoxazole/Trimethoprim (Bactrim Ds Tablet) 1 Each Tablet, 1 EACH PO BID Prescribed by: VALERI ARROYO on 06/08/22 0935 Sumatriptan Succinate (Sumatriptan Succinate) 50 Mg Tablet, 50 MG PO UD PRN for MIGRAINE, (Reported) Entered as Reported by: RADU CASTILLO on 05/11/21 1142 [oxy] Prescribed by: RAQUEL WEEMS on 12/08/21 1455 Review of Systems Review of Systems Constitutional: no symptoms reported EENTM: No Symptoms Reported Respiratory: No Symptoms Reported Cardiovascular: No Symptoms Reported Gastrointestinal: Abdominal Pain; Denies Nausea, Denies Vomiting Genitourinary: No Symptoms Reported Musculoskeletal: no symptoms reported Skin: no symptoms reported Psychiatric/Neurological: No Symptoms Reported Past Nxoairz-Kvgyrs-Jcdapd Hx Patient Social History Tobacco Use?: No Use of E-Cig and/or Vaping dev: Yes E-Cig or Vaping type used: Nicotine Use of E-Cig and/or Vaping Kurtis: Current Everyday User Substance use?: No Alcohol Use?: No Immunizations Up To Date Influenza Vaccine Up-to-Date: No; Not Current First/Initial COVID19 Vaccinat: NOT VACC, DECLINED Second COVID19 Vaccination Koko: UNK Third COVID19 Vaccination Date: UNK Past Medical History Surgery/Hospitalization HX: COPD, A FIB, HTN, NIDDM HERNIA C SECT X 2, LAPAROTOMY, GASTRIC SLEEVE, MORBID OBESITY Surgeries: Yes (LAPAROTOMY, C-SECTIONS, HERNIA REPAIR x 8-9, CARDIAC ABLATION, SLEEVE ) Abdominal, Appendectomy, Cardiac, Section Respiratory: Yes (CHRONIC RESPIRATORY FAILURE) Sleep Apnea, COPD Cardiac: Yes Atrial Fibrillation, Chronic Edema/Swelling, Heart Attack, High Cholesterol, Hypertension Neurological: Yes Seizure Disorder Reproductive Disorders: Yes Female Reproductive Disorders: Ovarian Cyst Genitourinary: No Gastrointestinal: Yes (VENTRAL HERNIA) Abdominal Hernia, Gastroesophageal Reflux Musculoskeletal: Yes (NON-MOBILE/BED BOUND DUE TO MORBID OBESITY) Endocrine: Yes (MORBID OBESITY) Diabetes, Insulin dep HEENT: No Cancer: No Psychosocial: Yes Anxiety, Depression Integumentary: No Blood Disorders: No Family Medical History Alzheimer's disease 19 MOTHER Arthritis 19 MOTHER Asthma 19 FATHER 19 MOTHER Colon cancer 19 MOTHER Completed stroke 19 FATHER 19 MOTHER Deafness or hearing loss Dementia 19 MOTHER Diabetes mellitus 19 FATHER Glaucoma 19 FATHER 19 MOTHER Hypertension 19 FATHER 19 MOTHER Myocardial infarction 19 FATHER 19 MOTHER Respiratory disorder 19 MOTHER No Pertinent Family Hx SOCIAL HISTORY: -ETOH--RARE USE -DRUGS--THC, COCAINE (SNORTS IT), METHAMPHETAMINE (SNORTS IT)--ON 03/02/21 CLAIMS "NO DRUGS FOR 13 YEARS" BUT TESTED + FOR METHAPMPHETAMINES -SMOKES 3 PPD, NOW "VAPES" PAST SURGICAL HISTORY: -EXPLORATORY LAPAROTOMY FOR OVARIAN CYST -MULTIPLE HERNIA REPAIRS--5 OR 6 SURGERIES - X 2 -CARDIAC ABLATION FOR ATRIAL FIBRILLATION PT IS NON-MOBILE AND BED-BOUND AND REQUIRES A GILBERTO LIFT FOR TRANSFERS TO WHEELCHAIR PT REQUIRES 2 --24 HOUR CAREGIVERS WITH HER AT ALL TIMES. Physical Exam Vital Signs Vital Signs - First Documented 04/19/23 02:01 Temp 36.2 Pulse 71 Resp 22 B/P (MAP) 142/70 (94) Pulse Ox 97 O2 Delivery Room Air Capillary Refill : Height/Weight/BMI Height: 5'4.00" Weight: 396lbs. 0.0oz. 179.993235am; 61.00 BMI Method:Estimated General Appearance: obese (Morbid) Respiratory: lungs clear, normal breath sounds Cardiovascular: normal peripheral pulses, regular rate, rhythm Gastrointestinal: non tender, soft Neurologic/Psychiatric: alert, normal mood/affect, oriented x 3 Skin: normal color, warm/dry Focused Exam Lactate Level 04/19/23 02:30: Lactic Acid Level 0.76 Lactic Acid Level Laboratory Tests Test 04/19/23 02:30 Lactic Acid Level 0.76 MMOL/L (0.50-2.00) Progress/Results/Core Measures Results/Orders Lab Results Laboratory Tests Test 04/19/23 02:30 04/19/23 03:38 Range/Units Sodium Level 140 135-145 MMOL/L Potassium Level 4.2 3.6-5.0 MMOL/L Chloride Level 104 98-107 MMOL/L Carbon Dioxide Level 26 21-32 MMOL/L Anion Gap 10 5-14 MMOL/L Blood Urea Nitrogen 13 7-18 MG/DL Creatinine 0.77 0.60-1.30 MG/DL Estimat Glomerular Filtration Rate 89 BUN/Creatinine Ratio 17 Glucose Level 109 H 70-105 MG/DL Lactic Acid Level 0.76 0.50-2.00 MMOL/L Calcium Level 9.2 8.5-10.1 MG/DL Corrected Calcium 9.4 8.5-10.1 MG/DL Magnesium Level 2.2 1.6-2.4 MG/DL Total Bilirubin 0.6 0.1-1.0 MG/DL Aspartate Amino Transf (AST/SGOT) 12 5-34 U/L Alanine Aminotransferase (ALT/SGPT) 18 0-55 U/L Alkaline Phosphatase 138 H 40-136 U/L Total Protein 6.9 6.4-8.2 GM/DL Albumin 3.8 3.2-4.5 GM/DL White Blood Count 8.1 4.3-11.0 10^3/uL Red Blood Count 4.77 3.80-5.11 10^6/uL Hemoglobin 13.4 11.5-16.0 g/dL Hematocrit 42 35-52 % Mean Corpuscular Volume 88 80-99 fL Mean Corpuscular Hemoglobin 28 25-34 pg Mean Corpuscular Hemoglobin Concent 32 32-36 g/dL Red Cell Distribution Width 16.1 H 10.0-14.5 % Platelet Count 185 130-400 10^3/uL Mean Platelet Volume 9.3 9.0-12.2 fL Immature Granulocyte % (Auto) 0 % Neutrophils (%) (Auto) 66 42-75 % Lymphocytes (%) (Auto) 26 12-44 % Monocytes (%) (Auto) 8 0-12 % Eosinophils (%) (Auto) 1 0-10 % Basophils (%) (Auto) 0 0-10 % Neutrophils # (Auto) 5.3 1.8-7.8 10^3/uL Lymphocytes # (Auto) 2.1 1.0-4.0 10^3/uL Monocytes # (Auto) 0.6 0.0-1.0 10^3/uL Eosinophils # (Auto) 0.1 0.0-0.3 10^3/uL Basophils # (Auto) 0.0 0.0-0.1 10^3/uL Immature Granulocyte # (Auto) 0.0 0.0-0.1 10^3/uL My Orders Orders - KIMBERLYALEXEI L DO Cbc With Automated Diff (04/19/23 02:19) Comprehensive Metabolic Panel (04/19/23 02:19) Lactic Acid Analyzer (04/19/23 02:19) Magnesium (04/19/23 02:19) Ct Abdomen/Pelvis Wo (04/19/23 02:33) Ketorolac Injection (Toradol Injection) (04/19/23 02:45) Blood Culture (04/19/23 02:30) Medications Given in ED Current Medications Medications Dose Ordered Sig/Sy Route Start Time Stop Time Status Last Admin Dose Admin Ketorolac Tromethamine 15 mg ONCE ONCE IM/IV 04/19/23 02:45 04/19/23 02:46 DC 04/19/23 03:16 15 MG Vital Signs/I&O 04/19/23 02:01 Temp 36.2 Pulse 71 Resp 22 B/P (MAP) 142/70 (94) Pulse Ox 97 O2 Delivery Room Air Progress Progress Note : Progress Note Patient's diagnostic studies were ordered reviewed and interpreted by me. Patient labs show no significant acute findings. Patient CT was ordered and reviewed by me with final interpretation per radiology report. There is no acut e findings or signs of any acute abdominal pathology. Patient symptoms improved and pain improved. This is similar to her previous visits. History is obtained from both EMS and the patient. Patient is not increased risk of morbidity and mortality based on her social determinants of health and her significant morbid obesity. Patient was stable and discharged home. Diagnostic Imaging Diagonstic Imaging: CT Plain Films/CT/US/NM/MRI: abdomen, pelvis Comments No acute findings, similar to previous CT Reviewed: Reviewed [place] Study Departure Impression Primary Impression: Abdominal wall hernia Additional Impression: Right sided abdominal pain Disposition: HOME, SELF-CARE Condition: Stable Departure-Patient Inst. Referrals: [facility] [place] (PCP/Family) Primary Care Physician Patient Instructions: Severe Abdominal Pain, Adult (DC) Add. Discharge Instructions: please follow up with your primary care provider as needed. All discharge instructions reviewed with patient and/or family. Voiced understanding. ALEXEI HARRIS DO Apr 19, 2023 02:22
[2023-04-19] MEDS ORDERED: KETOROLAC 15 MG/ML VIAL IM/IV ONE (02:45)
[2023-04-19 02:55] LABS: ALBUMIN 3.8 GM/DL (3.2-4.5); POTASSIUM 4.2 MMOL/L (3.6-5.0)
[2023-04-19 02:56] LABS: CALCIUM 9.2 MG/DL (8.5-10.1)
[2023-04-19 02:57] LABS: TOTAL PROTEIN 6.9 GM/DL (6.4-8.2)
[2023-04-19 02:59] LABS: BILIRUBIN,TOTAL 0.6 MG/DL (0.1-1.0)
[2023-04-19 03:01] LABS: CREATININE SERUM 0.77 MG/DL (0.60-1.30)
[2023-04-19 03:03] LABS: MAGNESIUM 2.2 MG/DL (1.6-2.4)
[2023-04-19 03:42] LABS: BASOPHILS % (AUTO) 0 % (0-10); EOSINOPHILS # (AUTO) 0.1 10^3/uL (0.0-0.3); EOSINOPHILS % (AUTO) 1 % (0-10); HEMATOCRIT 42 % (35-52); HEMOGLOBIN 13.4 g/dL (11.5-16.0); LYMPHOCYTES # (AUTO) 2.1 10^3/uL (1.0-4.0); LYMPHOCYTES % (AUTO) 26 % (12-44); MEAN CORPUSCULAR HEMOGLOBIN 28 pg (25-34); MEAN CORPUSCULAR HGB CONC 32 g/dL (32-36); MEAN CORPUSCULAR VOLUME 88 fL (80-99); MEAN PLATELET VOLUME 9.3 fL (9.0-12.2); MONOCYTES # (AUTO) 0.6 10^3/uL (0.0-1.0); MONOCYTES % (AUTO) 8 % (0-12); NEUTROPHILS # (AUTO) 5.3 10^3/uL (1.8-7.8); NEUTROPHILS % (AUTO) 66 % (42-75); PLATELET COUNT 185 10^3/uL (130-400); WHITE BLOOD COUNT 8.1 10^3/uL (4.3-11.0)
--- NOTE | 2023-04-19 05:30 | Diagnostic Imaging Report ---
PROCEDURE: CT abdomen and pelvis without contrast. TECHNIQUE: Multiple contiguous axial images were obtained through the abdomen and pelvis without the use of intravenous contrast. Auto Exposure Controls were utilized during the CT exam to meet ALARA standards for radiation dose reduction. INDICATION: Abdominal pain COMPARISON: 03/18/2023 FINDINGS: The visualized lung bases are clear. Postsurgical changes are again noted involving the stomach. The unenhanced liver and spleen are unremarkable. The adrenal glands are unremarkable. The pancreas is unremarkable. The gallbladder is unremarkable. The kidneys are unremarkable. No aneurysmal dilatation of the abdominal aorta. Only partially visualized as it is only able to be partially included within the eaipj-rn-flwr, there is a very large complex anterior abdominal wall hernia. The main hernia sac extends to the right containing multiple loops of unobstructed bowel without significant inflammatory stranding. An additional hernia component is seen extending to the left also containing unobstructed colon. No significant inflammatory stranding or fluid is noted within the visualized portions of the hernia sacs. No pneumatosis. No bowel obstruction within the [id number]-zffv. A 7.3 cm ovoid mass associated with the right aspect of the uterus is again identified, not significantly changed since 04/22/2020, suggesting benign etiology such as a fibroid. The urinary bladder is unremarkable. No significant adenopathy, free air, or free fluid within the abdomen or pelvis. Scattered osseous degenerative changes without acute osseous abnormality. IMPRESSION: Extensive large sized complex wide neck anterior abdominal wall hernia containing multiple loops of unobstructed bowel again identified appearing similar to the prior examination. No significant inflammatory stranding within the xhmeb-wd-zxin, though the entire abdomen and pelvis was unable be completely included within the tuyun-kz-thlx. Additional stable postsurgical and chronic findings as above. Agree with preliminary interpretation. Dictated by: Dictated on workstation # [id number]
== END 2023-04-19 05:21 | disposition home or self-care (01) ==
LOC: EDUNIT# 02:01 → ER 02:03
DX: K43.9 Ventral hernia without obstruction or gangrene (principal); E66.01 Morbid (severe) obesity due to excess calories; F17.290 Nicotine dependence, other tobacco product, uncomplicated; Z68.44 Body mass index [BMI] 60.0-69.9, adult; Z90.49 Acquired absence of other specified parts of digestive tract; Z98.84 Bariatric surgery status; Z91.040 Latex allergy status; Z28.310 Unvaccinated for COVID-19
CPT/HCPCS: 36415; 74176; 80053; 83605; 83735; 85025; 87040

== ENCOUNTER 2023-05-01 01:40 | Emergency (ER) | payer OTHER, MEDICAID ==
--- NOTE | 2023-05-01 02:09 | ED Fall/Injury ---
General Chief Complaint: Trauma-Non Activation Stated Complaint: FALL,LEFT HIP PAIN Nursing Triage Note: [facility] FROM HOME AT [facility] WITH C/O LEFT HIP PAIN AFTER FALLING OUT OF BED. [employer] EMS FOR LIFT ASSIST TO TRANSFER PT FROM EMS COT TO ER BED. Source: patient, EMS Exam Limitations: no limitations History of Present Illness Date Seen by Provider: May 01, 2023 Time Seen by Provider: 01:45 Initial Comments 57-year-old female presents the emergency department today after she reportedly fell out of her bed. She states she does believe she hit her head. She is on blood thinners but does not know which ones. She complains of left hip pain. All other systems reviewed and negative except documented per HPI. Voice recognition software was used to help create this chart Allergies and Home Medications Allergies Coded Allergies: latex (Verified Allergy, Intermediate, RASH, ITCHING, 03/02/11) vancomycin (Verified Allergy, Intermediate, HIVES, 03/02/11) iodine (Verified Allergy, Mild, "ILL", 03/02/11) lorazepam (Verified Allergy, Unknown, 07/12/17) phenobarbital (Verified Allergy, Unknown, 03/09/06) phenytoin (Verified Allergy, Unknown, 07/12/17) Patient Home Medication List Home Medication List Reviewed: Yes Albuterol Sulfate (Albuterol Sulfate) 2.5 Mg/3 Ml Vial.neb, 2.5 MG NEB Q4H PRN for SHORTNESS OF BREATH, (Reported) Entered as Reported by: CHARISSA PAYAN on 07/13/17 1051 Amoxicillin/Potassium Clav (Amox Tr-K Clv 875-125 mg Tab) 875 Mg-125 Mg Tablet, 1 EACH PO BID Prescribed by: Rosaline De Jesus on 03/18/232022 Apixaban (Eliquis) 5 Mg Tablet, 5 MG PO BID, (Reported) Entered as Reported by: RADU CASTILLO on 05/11/21 114 Atorvastatin Calcium (Atorvastatin Calcium) 40 Mg Tablet, 40 MG PO DAILY, (Reported) Entered as Reported by: RADU CASTILLO on 05/11/21 1142 Cephalexin (Cephalexin) 500 Mg Capsule, 500 MG PO BID Prescribed by: Ana Finn on 09/17/22 1731 Cephalexin (Cephalexin) 500 Mg Tablet, 500 MG PO BID Prescribed by: Rosaline De Jesus on 03/18/232022 Docusate Sodium (Stool Softener) 100 Mg Tablet, 100-200 MG PO BID PRN for CONSTIPATION-1ST LINE, (Reported) Entered as Reported by: RADU CASTILLO on 05/11/21 114 Ergocalciferol (Vitamin D2) (Vitamin D2) 1,250 Mcg Capsule, 1,250 MCG PO FRI, (Reported) Entered as Reported by: RADU CASTILLO on 05/11/21 114 Fluticasone Propion/Salmeterol (Fluticasone-Salmeterol 250-50) 1 Each Blst.w.dev, 1 PUFF INH BID PRN for SHORTNESS OF BREATH, (Reported) Entered as Reported by: RADU CASTILLO on 05/11/21 114 Fluticasone Propionate (Flonase Allergy Relief) 9.9 Ml [place].susp, 1 SPRAY NSEACH BID PRN for CONGESTION, (Reported) Entered as Reported by: RADU CASTILLO on 05/11/21 114 Furosemide (Furosemide) 40 Mg Tablet, 40 MG PO BID, (Reported) Entered as Reported by: CHARISSA PAYAN on 07/13/17 1051 Hydrocodone Bit/Acetaminophen (HYDROcodone/APAP 10/325 TABLET) 1 Ea Tab, 1-2 EA PO Q6H PRN for pain Prescribed by: WOOD ORTIZ on 12/03/21 1548 Hydroxyzine Pamoate (Hydroxyzine Pamoate) 25 Mg Capsule, 25 MG PO HS PRN for ANXIETY, (Reported) Entered as Reported by: CHARISSA PAYAN on 07/13/17 1053 Metformin HCl (Metformin HCl) 1,000 Mg Tablet, 1,000 MG PO BID, (Reported) Entered as Reported by: RADU CASTILLO on 05/11/21 114 Metoprolol Succinate (Metoprolol Succinate) 25 Mg Tab.er.24h, 25 MG PO DAILY, (Reported) Entered as Reported by: RADU CASTILLO on 05/11/21 114 Ondansetron (Ondansetron Odt) 4 Mg Tab.rapdis, 4-8 MG PO Q6H PRN for NAUSEA/VOMITING Prescribed by: WOOD ORTIZ on 12/03/21 1548 Oxycodone HCl/Acetaminophen (Percocet 10-325 mg Tablet) 1 Each Tablet, 1 TAB PO Q4H PRN for PAIN Prescribed by: RAQUEL WEEMS on 12/08/21 1458 Oxycodone Hcl (Oxyir Tablet) 5 Mg Tab, 5 MG PO Q8H PRN for PAIN-MODERATE (5-7) Prescribed by: VALERI ARROYO on 05/13/21 1115 Pantoprazole Sodium (Pantoprazole Sodium) 20 Mg Tablet.dr, 20 MG PO DAILY, ( Reported) Entered as Reported by: RADU CASTILLO on 05/11/21 1142 Potassium Chloride (Klor-Con M20) 20 Meq Tab.er.prt, 20 MEQ PO BID, (Reported) Entered as Reported by: RADU CASTILLO on 05/11/21 1147 Sertraline HCl (Sertraline HCl) 100 Mg Tablet, 100 MG PO DAILY, (Reported) Entered as Reported by: RADU CASTILLO on 05/11/21 1142 Silver Sulfadiazine (Ssd) 25 Gm Cream..g., 1 APPLIC TOP BID PRN for SKIN IRRITATION, (Reported) Entered as Reported by: RADU CASTILLO on 05/11/21 1142 Sulfamethoxazole/Trimethoprim (Bactrim Ds Tablet) 1 Each Tablet, 1 EACH PO BID Prescribed by: VALERI ARROYO on 06/08/22 0935 Sumatriptan Succinate (Sumatriptan Succinate) 50 Mg Tablet, 50 MG PO UD PRN for MIGRAINE, (Reported) Entered as Reported by: RADU CASTILLO on 05/11/21 1142 [oxy] Prescribed by: RAQUEL WEEMS on 12/08/21 1455 Review of Systems Review of Systems Constitutional: see HPI Past Qsfqtoe-Jmpyqr-Qefnkl Hx Patient Social History Tobacco Use?: No Use of E-Cig and/or Vaping dev: No Substance use?: No Alcohol Use?: No Immunizations Up To Date First/Initial COVID19 Vaccinat: NOT VACC, DECLINED Second COVID19 Vaccination Koko: NOT VACC, DECLINED Third COVID19 Vaccination Date: NOT VACC, DECLINED Past Medical History Surgery/Hospitalization HX: COPD, A FIB, HTN, NIDDM HERNIA C SECT X 2, LAPAROTOMY, GASTRIC SLEEVE, MORBID OBESITY Surgeries: Yes (LAPAROTOMY, C-SECTIONS, HERNIA REPAIR x 8-9, CARDIAC ABLATION, SLEEVE ) Abdominal, Appendectomy, Cardiac, Section Respiratory: Yes (CHRONIC RESPIRATORY FAILURE) Sleep Apnea, COPD Cardiac: Yes Atrial Fibrillation, Chronic Edema/Swelling, Heart Attack, High Cholesterol, Hypertension Neurological: Yes Seizure Disorder Reproductive Disorders: Yes Female Reproductive Disorders: Ovarian Cyst Genitourinary: No Gastrointestinal: Yes (VENTRAL HERNIA) Abdominal Hernia, Gastroesophageal Reflux Musculoskeletal: Yes (NON-MOBILE/BED BOUND DUE TO MORBID OBESITY) Endocrine: Yes (MORBID OBESITY) Diabetes, Insulin dep HEENT: No Cancer: No Psychosocial: Yes Anxiety, Depression Integumentary: No Blood Disorders: No Family Medical History Alzheimer's disease 19 MOTHER Arthritis 19 MOTHER Asthma 19 FATHER 19 MOTHER Colon cancer 19 MOTHER Completed stroke 19 FATHER 19 MOTHER Deafness or hearing loss Dementia 19 MOTHER Diabetes mellitus 19 FATHER Glaucoma 19 FATHER 19 MOTHER Hypertension 19 FATHER 19 MOTHER Myocardial infarction 19 FATHER 19 MOTHER Respiratory disorder 19 MOTHER No Pertinent Family Hx SOCIAL HISTORY: -ETOH--RARE USE -DRUGS--THC, COCAINE (SNORTS IT), METHAMPHETAMINE (SNORTS IT)--ON 03/02/21 CLAIMS "NO DRUGS FOR 13 YEARS" BUT TESTED + FOR METHAPMPHETAMINES -SMOKES 3 PPD, NOW "VAPES" PAST SURGICAL HISTORY: -EXPLORATORY LAPAROTOMY FOR OVARIAN CYST -MULTIPLE HERNIA REPAIRS--5 OR 6 SURGERIES - X 2 -CARDIAC ABLATION FOR ATRIAL FIBRILLATION PT IS NON-MOBILE AND BED-BOUND AND REQUIRES A GILBERTO LIFT FOR TRANSFERS TO WHEELCHAIR PT REQUIRES 2 --24 HOUR CAREGIVERS WITH HER AT ALL TIMES. Physical Exam Vital Signs Vital Signs - First Documented 05/01/23 01:40 Temp 36.5 Pulse 82 Resp 16 B/P (MAP) 123/75 (91) Pulse Ox 97 Capillary Refill : Less Than 3 Seconds Height, Weight, BMI Height: 5'4.00" Weight: 396lbs. 0.0oz. 179.033255hd; BMI Method:Estimated General Appearance: WD/WN, no apparent distress HEENT: normal ENT inspection, pharynx normal Neck: non-tender, full range of motion, supple, normal inspection Cardiovascular: regular rate, rhythm, no murmur Respiratory: chest non-tender, lungs clear, normal breath sounds, no respiratory distress, no accessory muscle use Gastrointestinal: normal bowel sounds, non tender, soft, other (morbidly obese) Extremities: normal range of motion, normal inspection, no pedal edema, no calf tenderness, other (TTP L lateral hip) Neurologic/Psychiatric: alert, normal mood/affect, oriented x 3 Skin: normal color, warm/dry Progress/Results/Core Measures Results/Orders My Orders Orders - HARLEEN KAPOOR DO Pelvis With Left Hip 2-3 Views (05/01/23 01:47) Ct Head Wo (05/01/23 01:47) Acetaminophen Tablet (Tylenol Tablet) (05/01/23 02:15) Vital Signs/I&O 05/01/23 05/01/23 01:40 02:20 Temp 36.5 36.5 Pulse 82 79 Resp 16 16 B/P (MAP) 123/75 (91) 123/75 Pulse Ox 97 97 Blood Pressure Mean: 91 Departure Communication (Admissions) Left hip x-rays negative. CT brain obtained because the patient is on blood thinners and states she hit her head. This is negative as well. No other obvious injuries. No indication for further work-up at this time. Discharged in stable condition. Impression Primary Impression: Fall Qualified Codes: W19.XXXA - Unspecified fall, initial encounter Additional Impression: Left hip pain Disposition: 01 HOME, SELF-CARE Condition: Stable Departure-Patient Inst. Referrals: RADU BARRERA DO (PCP) Primary Care Physician [facility] (Family) Primary Care Physician Patient Instructions: Hip Pain (DC), Preventing Falls ED Add. Discharge Instructions: Use Tylenol and ibuprofen as needed for pain. Ambulate as tolerated in transfer in your wheelchair. Return to the emergency department for any severe concerns. All discharge instructions reviewed with patient and/or family. Voiced understanding. HARLEEN KAPOOR DO May 01, 2023 02:09
[2023-05-01] MEDS ORDERED: ACETAMINOPHEN 500 MG TAB (TYLENOL) PO ONE (02:15)
[2023-05-01 02:20] VITALS: BP 123/75
--- NOTE | 2023-05-01 06:22 | Diagnostic Imaging Report ---
PROCEDURE: CT head without contrast. TECHNIQUE: Multiple contiguous axial images were obtained through the brain without the use of intravenous contrast. Auto Exposure Controls were utilized during the CT exam to meet ALARA standards for radiation dose reduction. INDICATION: Headache. COMPARISON: CT of the head 03/18/2023. FINDINGS: The brain parenchyma is normal in attenuation. No intra- or extra-axial mass or fluid collection. No acute hemorrhage. The ventricles are normal in size, shape, and morphology. The multani-white matter junction is normal. The subarachnoid cisterns are patent. The visualized paranasal sinuses are normal. The visualized portions of the orbits and globes are normal. The mastoid air cells are clear. The private banker topogram shows no lytic lesion or fracture. Impression: No acute intracranial process. Dictated by: Dictated on workstation # [id number]
--- NOTE | 2023-05-01 07:18 | Diagnostic Imaging Report ---
EXAMINATION: Pelvis and left hip radiograph EXAM DATE: 05/01/2023 2:13 AM COMPARISON: None available. HISTORY: L hip pain after fall TECHNIQUE: 3 views FINDINGS: There is no acute fracture, dislocation, or destructive osseous process. There is left hip joint space narrowing with small osteophytes. The soft tissues are normal. IMPRESSION: 1. No acute osseous abnormality. Dictated by: Dictated on workstation # [id number]
== END 2023-05-01 02:20 | disposition home or self-care (01) ==
LOC: EDUNIT# 01:40 → ER 01:42
DX: M25.552 Pain in left hip (principal); E11.9 Type 2 diabetes mellitus without complications; E66.01 Morbid (severe) obesity due to excess calories; F17.290 Nicotine dependence, other tobacco product, uncomplicated; Z79.01 Long term (current) use of anticoagulants; Z91.040 Latex allergy status; Z28.310 Unvaccinated for COVID-19; Z79.4 Long term (current) use of insulin; W06.XXXA Fall from bed, initial encounter
CPT/HCPCS: 70450

== ENCOUNTER 2023-07-01 00:02 | Emergency (ER) | payer OTHER, MEDICAID ==
[~2023-07-01] VITALS: Ht 162.6 cm; Wt 167.8 kg
[2023-07-01 02:03] LABS: AMPHETAMINE SCREEN, URINE POSITIVE (NEGATIVE); BARBITURATE SCREEN URINE NEGATIVE (NEGATIVE); BENZODIAZEPINES SCREEN URINE NEGATIVE (NEGATIVE); CANNABINOID SCREEN, URINE NEGATIVE (NEGATIVE); COCAINE SCREEN URINE NEGATIVE (NEGATIVE); METHADONE STAT NEGATIVE (NEGATIVE); OPIATE SCREEN URINE NEGATIVE (NEGATIVE); OXYCODONE STAT NEGATIVE (NEGATIVE); PROPOXYPHENE STAT NEGATIVE (NEGATIVE); TRICYCLIC ANTIDEPRESSANTS SCRE NEGATIVE (NEGATIVE)
[2023-07-01 02:04] LABS: CLARITY,URINE CLEAR; COLOR,URINE YELLOW
[2023-07-01 02:05] LABS: BILIRUBIN,URINE 1+ (NEGATIVE); GLUCOSE, URINE (UA) NEGATIVE (NEGATIVE); KETONES,URINE TRACE (NEGATIVE); LEUKOCYTE ESTERASE ,URINE NEGATIVE (NEGATIVE); NITRITE,URINE NEGATIVE (NEGATIVE); PH,URINE 5.5 (5-9); PROTEIN,URINE NEGATIVE (NEGATIVE); RBC,URINE RARE /HPF; WBC,URINE RARE /HPF
[2023-07-01 02:06] LABS: BACTERIA,URINE FEW /HPF; SQUAMOUS EPITHELIAL CELL,UR 0-2 /HPF
--- NOTE | 2023-07-01 02:08 | ED General ---
General Chief Complaint: Fever-Adult/Adol Stated Complaint: FEVER Nursing Triage Note: BROUGHT IN BY [facility] FOR FEVER/WEAKNESS RIGHT SHOULDER PAIN SINCE SHINGLES VACCINE 06/27/23 Source of Information: Patient (PT IS SOMEWHAT LIMITED/DIFFICULT HISTORIAN--APPEARS TO BE UNDER THE INFLUENCE OF SOME SUBSTANCE/S, DOES HER SON. ), Old Records History of Present Illness Date Seen by Provider: Jul 01, 2023 Time Seen by Provider: 00:05 Initial Comments PT ARRIVES VIA EMS FROM HOME PT STATES SHE GOT SHINGLES VACCINE ON Tuesday06/27/23 SINCE TUESDAY SHE HAS HAD SUBJECTIVE FEVER AND HER RIGHT SHOULDER/UPPER ARM HURTS WHERE SHE GOT THE VACCINE SHE HAS NOT TAKEN ANYTHING FOR SYMPTOMS AT ANY TIME SHE HAS NOT SOUGHT CARE UNTIL TONIGHT SYMPTOMS NO DIFFERENT TONIGHT NO CHEST PAIN NO SHORTNESS OF BREATH NO GI SYMPTOMS NO URINARY SYMPTOMS NO HEADACHE NO PARESTHESIAS OR MOTOR DEFICITS NO VISION CHANGES PT IS MORBIDLY OBESE AND BED BOUND DUE TO OBESITY. PCP; [facility] Allergies and Home Medications Allergies Coded Allergies: latex (Verified Allergy, Intermediate, RASH, ITCHING, 03/02/11) vancomycin (Verified Allergy, Intermediate, HIVES, 03/02/11) iodine (Verified Allergy, Mild, "ILL", 03/02/11) lorazepam (Verified Allergy, Unknown, 07/12/17) phenobarbital (Verified Allergy, Unknown, 03/09/06) phenytoin (Verified Allergy, Unknown, 07/12/17) Patient Home Medication List Albuterol Sulfate (Albuterol Sulfate) 2.5 Mg/3 Ml Vial.neb, 2.5 MG NEB Q4H PRN for SHORTNESS OF BREATH, (Reported) Entered as Reported by: CHARISSA PAYAN on 07/13/17 1051 Amoxicillin/Potassium Clav (Amox Tr-K Clv 875-125 mg Tab) 875 Mg-125 Mg Tablet, 1 EACH PO BID Prescribed by: Rosaline De Jesus on 03/18/232022 Apixaban (Eliquis) 5 Mg Tablet, 5 MG PO BID, (Reported) Entered as Reported by: RADU CASTILLO on 05/11/21 114 Atorvastatin Calcium (Atorvastatin Calcium) 40 Mg Tablet, 40 MG PO DAILY, (Reported) Entered as Reported by: RADU CASTILLO on 05/11/21 114 Cephalexin (Cephalexin) 500 Mg Capsule, 500 MG PO BID Prescribed by: Ana Finn on 09/17/22 1731 Cephalexin (Cephalexin) 500 Mg Tablet, 500 MG PO BID Prescribed by: Rosaline De Jesus on 03/18/232022 Docusate Sodium (Stool Softener) 100 Mg Tablet, 100-200 MG PO BID PRN for CONSTIPATION-1ST LINE, (Reported) Entered as Reported by: RADU CASTILLO on 05/11/21 1142 Ergocalciferol (Vitamin D2) (Vitamin D2) 1,250 Mcg Capsule, 1,250 MCG PO FRI, (Reported) Entered as Reported by: RADU CASTILLO on 05/11/21 1142 Fluticasone Propion/Salmeterol (Fluticasone-Salmeterol 250-50) 1 Each Blst.w.dev, 1 PUFF INH BID PRN for SHORTNESS OF BREATH, (Reported) Entered as Reported by: RADU CASTILLO on 05/11/21 1142 Fluticasone Propionate (Flonase Allergy Relief) 9.9 Ml [place].susp, 1 SPRAY NSEACH BID PRN for CONGESTION, (Reported) Entered as Reported by: RADU CASTILLO on 05/11/21 1142 Furosemide (Furosemide) 40 Mg Tablet, 40 MG PO BID, (Reported) Entered as Reported by: CHARISSA PAYAN on 07/13/17 1051 Hydrocodone Bit/Acetaminophen (HYDROcodone/APAP 10/325 TABLET) 1 Ea Tab, 1-2 EA PO Q6H PRN for pain Prescribed by: WOOD ORTIZ on 12/03/21 1548 Hydroxyzine Pamoate (Hydroxyzine Pamoate) 25 Mg Capsule, 25 MG PO HS PRN for ANXIETY, (Reported) Entered as Reported by: CHARISSA PAYAN on 07/13/17 1053 Metformin HCl (Metformin HCl) 1,000 Mg Tablet, 1,000 MG PO BID, (Reported) Entered as Reported by: RADU CASTILLO on 05/11/21 1142 Metoprolol Succinate (Metoprolol Succinate) 25 Mg Tab.er.24h, 25 MG PO DAILY, (Reported) Entered as Reported by: RADU CASTILLO on 05/11/21 1142 Ondansetron (Ondansetron Odt) 4 Mg Tab.rapdis, 4-8 MG PO Q6H PRN for NAUSEA/VOMITING Prescribed by: WOOD ORTIZ on 12/03/21 1548 Oxycodone HCl/Acetaminophen (Percocet 10-325 mg Tablet) 1 Each Tablet, 1 TAB PO Q4H PRN for PAIN Prescribed by: RAQUEL WEEMS on 12/08/21 1458 Oxycodone Hcl (Oxyir Tablet) 5 Mg Tab, 5 MG PO Q8H PRN for PAIN-MODERATE (5-7) Prescribed by: VALERI ARROYO on 05/13/21 1115 Pantoprazole Sodium (Pantoprazole Sodium) 20 Mg Tablet.dr, 20 MG PO DAILY, (Reported) Entered as Reported by: RADU CASTILLO on 05/11/21 1142 Potassium Chloride (Klor-Con M20) 20 Meq Tab.er.prt, 20 MEQ PO BID, (Reported) Entered as Reported by: RADU CASTILLO on 05/11/21 1147 Sertraline HCl (Sertraline HCl) 100 Mg Tablet, 100 MG PO DAILY, (Reported) Entered as Reported by: RADU CASTILLO on 05/11/21 1142 Silver Sulfadiazine (Ssd) 25 Gm Cream..g., 1 APPLIC TOP BID PRN for SKIN IRRITATION, (Reported) Entered as Reported by: RADU CASTILLO on 05/11/21 1142 Sulfamethoxazole/Trimethoprim (Bactrim Ds Tablet) 1 Each Tablet, 1 EACH PO BID Prescribed by: VALERI ARROYO on 06/08/22 0935 Sumatriptan Succinate (Sumatriptan Succinate) 50 Mg Tablet, 50 MG PO UD PRN for MIGRAINE, (Reported) Entered as Reported by: RADU CASTILLO on 05/11/21 1142 [oxy] Prescribed by: RAQUEL WEEMS on 12/08/21 1455 Past Wwmiddu-Kvcaxq-Xpvxni Hx Patient Social History Tobacco Use?: Yes Substance use?: No Alcohol Use?: No Pt feels they are or have been: No Immunizations Up To Date First/Initial COVID19 Vaccinat: NOT VACC, DECLINED Second COVID19 Vaccination Koko: NOT VACC, DECLINED Third COVID19 Vaccination Date: NOT VACC, DECLINED Past Medical History Surgery/Hospitalization HX: COPD, A FIB, HTN, NIDDM, GERD, HLD, [place], [place], SEIZURES, ANXIETY/DEPRESSION HERNIA C SECT X 2, LAPAROTOMY, GASTRIC SLEEVE, MORBID OBESITY Surgeries: Yes (LAPAROTOMY, C-SECTIONS, HERNIA REPAIR x 8-9, CARDIAC ABLATION, SLEEVE ) Abdominal, Appendectomy, Cardiac, Section Respiratory: Yes (CHRONIC RESPIRATORY FAILURE) Sleep Apnea, COPD Cardiac: Yes Atrial Fibrillation, Chronic Edema/Swelling, Heart Attack, High Cholesterol, Hyp ertension Neurological: Yes Seizure Disorder Reproductive Disorders: Yes Female Reproductive Disorders: Ovarian Cyst Genitourinary: No Gastrointestinal: Yes (VENTRAL HERNIA) Abdominal Hernia, Gastroesophageal Reflux Musculoskeletal: Yes (NON-MOBILE/BED BOUND DUE TO MORBID OBESITY) Endocrine: Yes (MORBID OBESITY) Diabetes, Insulin dep HEENT: No Cancer: No Psychosocial: Yes Anxiety, Depression Integumentary: No Blood Disorders: No Family Medical History Alzheimer's disease 19 MOTHER Arthritis 19 MOTHER Asthma 19 FATHER 19 MOTHER Colon cancer 19 MOTHER Completed stroke 19 FATHER 19 MOTHER Deafness or hearing loss Dementia 19 MOTHER Diabetes mellitus 19 FATHER Glaucoma 19 FATHER 19 MOTHER Hypertension 19 FATHER 19 MOTHER Myocardial infarction 19 FATHER 19 MOTHER Respiratory disorder 19 MOTHER No Pertinent Family Hx SOCIAL HISTORY: -ETOH--RARE USE -DRUGS--THC, COCAINE (SNORTS IT), METHAMPHETAMINE (SNORTS IT)--ON 03/02/21 CLAIMS "NO DRUGS FOR 13 YEARS" BUT TESTED + FOR METHAPMPHETAMINES -SMOKES 3 PPD, NOW "VAPES" PAST SURGICAL HISTORY: -EXPLORATORY LAPAROTOMY FOR OVARIAN CYST -MULTIPLE HERNIA REPAIRS--5 OR 6 SURGERIES - X 2 -CARDIAC ABLATION FOR ATRIAL FIBRILLATION PT IS NON-MOBILE AND BED-BOUND AND REQUIRES A GILBERTO LIFT FOR TRANSFERS TO WHEELCHAIR PT REQUIRES 2 --24 HOUR CAREGIVERS WITH HER AT ALL TIMES. Physical Exam Vital Signs Vital Signs - First Documented 07/01/23 00:05 Temp 37.6 Pulse 77 Resp 20 B/P (MAP) 138/71 (93) Pulse Ox 96 O2 Delivery Room Air Capillary Refill : Less Than 3 Seconds Height, Weight, BMI Height: 5'4.00" Weight: 396lbs. 0.0oz. 179.842355nk; 63.00 BMI Method:Estimated Progress/Results/Core Measures Suspected Sepsis SIRS Temperature: Pulse: 77 Respiratory Rate: 20 Blood Pressure 138 /71 Mean: 93 Results/Orders Lab Results Laboratory Tests Test 07/01/23 00:18 8/18/23 01:45 Range/Units Influenza Type A (RT-PCR) Not Detected Not Detecte Influenza Type B (RT-PCR) Not Detected Not Detecte SARS-CoV-2 RNA (RT-PCR) Not Detected Not Detecte Urine Color YELLOW Urine Clarity CLEAR Urine pH 5.5 5-9 Urine Specific [place] 1.025 H 1.016-1.022 Urine Protein NEGATIVE NEGATIVE Urine Glucose (UA) NEGATIVE NEGATIVE Urine Ketones TRACE H NEGATIVE Urine Nitrite NEGATIVE NEGATIVE Urine Bilirubin 1+ H NEGATIVE Urine Urobilinogen 1.0 < = 1.0 MG/DL Urine Leukocyte Esterase NEGATIVE NEGATIVE Urine RBC (Auto) TRACE H NEGATIVE Urine RBC RARE /HPF Urine WBC RARE /HPF Urine Squamous Epithelial Cells 0-2 /HPF Urine Crystals NONE /LPF Urine Bacteria FEW H /HPF Urine Casts NONE /LPF Urine Mucus NEGATIVE /LPF Urine Culture Indicated YES Urine Opiates Screen NEGATIVE NEGATIVE Urine Oxycodone Screen NEGATIVE NEGATIVE Urine Methadone Screen NEGATIVE NEGATIVE Urine Propoxyphene Screen NEGATIVE NEGATIVE Urine Barbiturates Screen NEGATIVE NEGATIVE Ur Tricyclic Antidepressants Screen NEGATIVE NEGATIVE Urine Phencyclidine Screen NEGATIVE NEGATIVE Urine Amphetamines Screen POSITIVE H NEGATIVE Urine Methamphetamines Screen POSITIVE H NEGATIVE Urine Benzodiazepines Screen NEGATIVE NEGATIVE Urine Cocaine Screen NEGATIVE NEGATIVE Urine Cannabinoids Screen NEGATIVE NEGATIVE My Orders Orders - TULIO CARRASCO DO Covid 19 Inhouse Test (07/01/23 00:06) Influenza A And B By Pcr (07/01/23 00:06) Drug Screen Stat (Urine) (07/01/23 00:09) Ua Culture If Indicated (07/01/23 00:09) Urine Culture (07/01/23 01:45) Vital Signs/I&O 07/01/23 07/01/23 00:05 02:26 Temp 37.6 36.5 Pulse 77 88 Resp 20 18 B/P (MAP) 138/71 (93) 129/71 Pulse Ox 96 97 O2 Delivery Room Air Room Air Capillary Refill : Less Than 3 Seconds Blood Pressure Mean: 93 Departure Impression 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 Decision time for Depature: 02:05 Referrals: RADU BARRERA DO (PCP) Primary Care Physician [facility] (Family) Primary Care Physician Patient Instructions: Recombinant Zoster (Shingles) Vaccine CDC Vaccine Information Statement (VIS), What you should know about vaccines Add. Discharge Instructions: TYLENOL 1 GRAM PLUS MOTRIN 800 MG 4 TIMES A DAY FOR PAIN OR FEVER LOTS OF CLEAR LIQUIDS--WATER, BROTH, JELLO, GATORADE NO DRUGS FOLLOW UP WITH [facility] IN 3-4 DAYS IF NO BETTER All discharge instructions reviewed with patient and/or family. Voiced understanding. TULIO CARRASCO DO Jul 01, 2023 02:08
[2023-07-01 02:26] VITALS: BP 129/71
== END 2023-07-01 02:49 | disposition home or self-care (01) ==
LOC: EDUNIT# 00:02 → ER 00:04
DX: R50.83 Postvaccination fever (principal); T50.Z95A Adverse effect of other vaccines and biological substances, initial encounter; F15.980 Other stimulant use, unspecified with stimulant-induced anxiety disorder; F15.94 Other stimulant use, unspecified with stimulant-induced mood disorder; E66.01 Morbid (severe) obesity due to excess calories; E11.9 Type 2 diabetes mellitus without complications; Z79.4 Long term (current) use of insulin; Z28.310 Unvaccinated for COVID-19; Z91.040 Latex allergy status; Z68.44 Body mass index [BMI] 60.0-69.9, adult; Z20.822 Contact with and (suspected) exposure to COVID-19
CPT/HCPCS: 80306; 81000; 87088; 87636; 99283

== ENCOUNTER 2023-07-14 00:40 | Emergency (ER) | payer OTHER, MEDICAID ==
[~2023-07-14] VITALS: Ht 167 cm; Wt 158.0 kg
--- NOTE | 2023-07-14 01:01 | ED Cardiac General ---
History of Present Illness General Chief Complaint: Chest Pain Stated Complaint: CHEST PAIN/SOA Source: patient Exam Limitations: no limitations History of Present Illness Date Seen by Provider: Jul 14, 2023 Time Seen by Provider: 01:00 Initial Comments Patient is a 57-year-old female with a history of morbid obesity, diabetes chronically immobile who presents to the emergency department with a chief complaint of fever to 102 this evening, nausea vomiting, left-sided chest pain, shortness of breath, right sided headache, dizziness. She has had cough as well. She states she was so dizzy just prior to EMS picking her up that she fell out of bed onto a "cot" next to her bed. She denies any injury from this fall. She states that 2 days ago she was drinking orange juice after eating a protein bar and she got "choked." She states her chest pain started after the choking spell. She states it feels "like heartburn". She recently started an injectable diabetes medications (she cannot recall the name of). She gets it on fridays. She states occasionally she has this type of chest discomfort but since the choking spell it has been worse. It does not radiate. She last took her nausea medicine at 2 PM this afternoon. She took 2 ibuprofen for her fever approximately 11 PM. She denies dysuria urgency or frequency and states that she recently "got checked" both at and [facility] for urinary tract infection and the test was negative. She denies any change in bowel habits. She is not COVID vaccinated. She denies any sick contacts. Timing/Duration: 12 hours Severity: moderate Location: other (left chest) NTG SL SENIOR BIOINFORMATICS SPECIALIST: No ASA po SENIOR BIOINFORMATICS SPECIALIST: No Associated Systoms: Fever/Chills (102), Headaches (right eye), Nausea/Vomiting, Shortness of Air Allergies and Home Medications Allergies Coded Allergies: latex (Verified Allergy, Intermediate, RASH, ITCHING, 03/02/11) vancomycin (Verified Allergy, Intermediate, HIVES, 03/02/11) iodine (Verified Allergy, Mild, "ILL", 03/02/11) lorazepam (Verified Allergy, Unknown, 07/12/17) phenobarbital (Verified Allergy, Unknown, 03/09/06) phenytoin (Verified Allergy, Unknown, 07/12/17) Patient Home Medication List Home Medication List Reviewed: Yes Albuterol Sulfate (Albuterol Sulfate) 2.5 Mg/3 Ml Vial.neb, 2.5 MG NEB Q4H PRN for SHORTNESS OF BREATH, (Reported) Entered as Reported by: CHARISSA PAYAN on 07/13/17 1051 Amoxicillin/Potassium Clav (Amox Tr-K Clv 875-125 mg Tab) 875 Mg-125 Mg Tablet, 1 EACH PO BID Prescribed by: Rosaline De Jesus on 03/18/232022 Apixaban (Eliquis) 5 Mg Tablet, 5 MG PO BID, (Reported) Entered as Reported by: RADU CASTILLO on 05/11/21 114 Atorvastatin Calcium (Atorvastatin Calcium) 40 Mg Tablet, 40 MG PO DAILY, (Reported) Entered as Reported by: RADU CASTILLO on 05/11/21 114 Cephalexin (Cephalexin) 500 Mg Capsule, 500 MG PO BID Prescribed by: Ana Finn on 09/17/22 1731 Cephalexin (Cephalexin) 500 Mg Tablet, 500 MG PO BID Prescribed by: Rosaline De Jesus on 03/18/232022 Docusate Sodium (Stool Softener) 100 Mg Tablet, 100-200 MG PO BID PRN for CONSTIPATION-1ST LINE, (Reported) Entered as Reported by: RADU CASTILLO on 05/11/21 114 Ergocalciferol (Vitamin D2) (Vitamin D2) 1,250 Mcg Capsule, 1,250 MCG PO FRI, (Reported) Entered as Reported by: RADU CASTILLO on 05/11/21 114 Fluticasone Propion/Salmeterol (Fluticasone-Salmeterol 250-50) 1 Each Blst.w.dev , 1 PUFF INH BID PRN for SHORTNESS OF BREATH, (Reported) Entered as Reported by: RADU CASTILLO on 05/11/21 1142 Fluticasone Propionate (Flonase Allergy Relief) 9.9 Ml [place].susp, 1 SPRAY NSEACH BID PRN for CONGESTION, (Reported) Entered as Reported by: RADU CASTILLO on 05/11/21 114 Furosemide (Furosemide) 40 Mg Tablet, 40 MG PO BID, (Reported) Entered as Reported by: CHARISSA PAYAN on 07/13/17 1051 Hydrocodone Bit/Acetaminophen (HYDROcodone/APAP 10/325 TABLET) 1 Ea Tab, 1-2 EA PO Q6H PRN for pain Prescribed by: WOOD ORTIZ on 12/03/21 1548 Hydroxyzine Pamoate (Hydroxyzine Pamoate) 25 Mg Capsule, 25 MG PO HS PRN for ANXIETY, (Reported) Entered as Reported by: CHARISSA PAYAN on 07/13/17 1053 Metformin HCl (Metformin HCl) 1,000 Mg Tablet, 1,000 MG PO BID, (Reported) Entered as Reported by: RADU CASTILLO on 05/11/21 1142 Metoprolol Succinate (Metoprolol Succinate) 25 Mg Tab.er.24h, 25 MG PO DAILY, (Reported) Entered as Reported by: RADU CASTILLO on 05/11/21 1142 Ondansetron (Ondansetron Odt) 4 Mg Tab.rapdis, 4-8 MG PO Q6H PRN for NAUSEA/VOMITING Prescribed by: WOOD ORTIZ on 12/03/21 1548 Oxycodone HCl/Acetaminophen (Percocet 10-325 mg Tablet) 1 Each Tablet, 1 TAB PO Q4H PRN for PAIN Prescribed by: RAQUEL WEEMS on 12/08/21 1458 Oxycodone Hcl (Oxyir Tablet) 5 Mg Tab, 5 MG PO Q8H PRN for PAIN-MODERATE (5-7) Prescribed by: VALERI ARROYO on 05/13/21 1115 Pantoprazole Sodium (Pantoprazole Sodium) 20 Mg Tablet.dr, 20 MG PO DAILY, (Reported) Entered as Reported by: RADU CASTILLO on 05/11/21 1142 Potassium Chloride (Klor-Con M20) 20 Meq Tab.er.prt, 20 MEQ PO BID, (Reported) Entered as Reported by: RADU CASTILLO on 05/11/21 1147 Sertraline HCl (Sertraline HCl) 100 Mg Tablet, 100 MG PO DAILY, (Reported) Entered as Reported by: RADU CASTILLO on 05/11/21 1142 Silver Sulfadiazine (Ssd) 25 Gm Cream..g., 1 APPLIC TOP BID PRN for SKIN IRRITATION, (Reported) Entered as Reported by: RADU CASTILLO on 05/11/21 1142 Sulfamethoxazole/Trimethoprim (Bactrim Ds Tablet) 1 Each Tablet, 1 EACH PO BID Prescribed by: VALERI ARROYO on 06/08/22 0935 Sumatriptan Succinate (Sumatriptan Succinate) 50 Mg Tablet, 50 MG PO UD PRN for MIGRAINE, (Reported) Entered as Reported by: RADU CASTILLO on 05/11/21 1142 [oxy] Prescribed by: RAQUEL WEEMS on 12/08/21 1455 Review of Systems Review of Systems Constitutional: see HPI EENTM: Other (dizziness) Respiratory: Cough, Shortness of Air Cardiovascular: Chest Pain (left sided) Gastrointestinal: Nausea, Vomiting Genitourinary: No Symptoms Reported Musculoskeletal: no symptoms reported Skin: no symptoms reported Psychiatric/Neurological: No Symptoms Reported Past Hxpzyjo-Readxu-Aiweed Hx Immunizations Up To Date First/Initial COVID19 Vaccinat: NOT VACC, DECLINED Second COVID19 Vaccination Koko: NOT VACC, DECLINED Third COVID19 Vaccination Date: NOT VACC, DECLINED Past Medical History Surgery/Hospitalization HX: COPD, A FIB, HTN, NIDDM, GERD, HLD, [place], [place], SEIZURES, ANXIETY/DEPRESSION HERNIA C SECT X 2, LAPAROTOMY, GASTRIC SLEEVE, MORBID OBESITY Surgeries: Yes (LAPAROTOMY, C-SECTIONS, HERNIA REPAIR x 8-9, CARDIAC ABLATION, SLEEVE ) Abdominal, Appendectomy, Cardiac, Section Respiratory: Yes (CHRONIC RESPIRATORY FAILURE) Sleep Apnea, COPD Cardiac: Yes Atrial Fibrillation, Chronic Edema/Swelling, Heart Attack, High Cholesterol, Hypertension Neurological: Yes Seizure Disorder Reproductive Disorders: Yes Female Reproductive Disorders: Ovarian Cyst Genitourinary: No Gastrointestinal: Yes (VENTRAL HERNIA) Abdominal Hernia, Gastroesophageal Reflux Musculoskeletal: Yes (NON-MOBILE/BED BOUND DUE TO MORBID OBESITY) Endocrine: Yes (MORBID OBESITY) Diabetes, Insulin dep HEENT: No Cancer: No Psychosocial: Yes Anxiety, Depression Integumentary: No Blood Disorders: No Family Medical History Alzheimer's disease 19 MOTHER Arthritis 19 MOTHER Asthma 19 FATHER 19 MOTHER Colon cancer 19 MOTHER Completed stroke 19 FATHER 19 MOTHER Deafness or hearing loss Dementia 19 MOTHER Diabetes mellitus 19 FATHER Glaucoma 19 FATHER 19 MOTHER Hypertension 19 FATHER 19 MOTHER Myocardial infarction 19 FATHER 19 MOTHER Respiratory disorder 19 MOTHER No Pertinent Family Hx SOCIAL HISTORY: -ETOH--RARE USE -DRUGS--THC, COCAINE (SNORTS IT), METHAMPHETAMINE (SNORTS IT)--ON 03/02/21 CLAIMS "NO DRUGS FOR 13 YEARS" BUT TESTED + FOR METHAPMPHETAMINES -SMOKES 3 PPD, NOW "VAPES" PAST SURGICAL HISTORY: -EXPLORATORY LAPAROTOMY FOR OVARIAN CYST -MULTIPLE HERNIA REPAIRS--5 OR 6 SURGERIES - X 2 -CARDIAC ABLATION FOR ATRIAL FIBRILLATION PT IS NON-MOBILE AND BED-BOUND AND REQUIRES A GILBERTO LIFT FOR TRANSFERS TO WHEELCHAIR PT REQUIRES 2 --24 HOUR CAREGIVERS WITH HER AT ALL TIMES. Physical Exam Vital Signs Vital Signs - First Documented 07/14/23 00:50 Temp 36.4 Pulse 76 Resp 20 B/P (MAP) 134/93 (107) Pulse Ox 96 O2 Delivery Room Air Capillary Refill : Height, Weight, BMI Height: 5'4.00" Weight: 396lbs. 0.0oz. 179.101402ri; 63.00 BMI Method:Estimated General Appearance: Anxious, Chronically ill, Obese (morbid obesity) HEENT: PERRL/EOMI Neck: Normal Inspection Respiratory: Lungs Clear, Normal Breath Sounds, No Accessory Muscle Use, No Respiratory Distress, Other (she has an audible upper airway wheeze - this is not in the lungs, not actually stridor) Cardiovascular: Regular Rate, Rhythm Gastrointestinal: Other (very large right sided ventral hernias - soft) Extremity: Normal Inspection Neurologic/Psychiatric: Alert, Oriented x3, No Motor/Sensory Deficits Skin: Normal Color, Warm/Dry Progress/Results/Core Measures Results/Orders Lab Results Laboratory Tests Test 07/14/23 01:22 Range/Units White Blood Count 13.3 H 4.3-11.0 10^3/uL Red Blood Count 4.86 3.80-5.11 10^6/uL Hemoglobin 13.8 11.5-16.0 g/dL Hematocrit 43 35-52 % Mean Corpuscular Volume 89 80-99 fL Mean Corpuscular Hemoglobin 28 25-34 pg Mean Corpuscular Hemoglobin Concent 32 32-36 g/dL Red Cell Distribution Width 15.9 H 10.0-14.5 % Platelet Count 255 130-400 10^3/uL Mean Platelet Volume 9.6 9.0-12.2 fL Immature Granulocyte % (Auto) 0 % Neutrophils (%) (Auto) 76 H 42-75 % Lymphocytes (%) (Auto) 15 12-44 % Monocytes (%) (Auto) 7 0-12 % Eosinophils (%) (Auto) 1 0-10 % Basophils (%) (Auto) 0 0-10 % Neutrophils # (Auto) 10.2 H 1.8-7.8 10^3/uL Lymphocytes # (Auto) 2.0 1.0-4.0 10^3/uL Monocytes # (Auto) 0.9 0.0-1.0 10^3/uL Eosinophils # (Auto) 0.1 0.0-0.3 10^3/uL Basophils # (Auto) 0.1 0.0-0.1 10^3/uL Immature Granulocyte # (Auto) 0.1 0.0-0.1 10^3/uL Sodium Level 140 135-145 MMOL/L Potassium Level 3.9 3.6-5.0 MMOL/L Chloride Level 104 98-107 MMOL/L Carbon Dioxide Level 24 21-32 MMOL/L Anion Gap 12 5-14 MMOL/L Blood Urea Nitrogen 17 7-18 MG/DL Creatinine 0.84 0.60-1.30 MG/DL Estimat Glomerular Filtration Rate 80 BUN/Creatinine Ratio 20 Glucose Level 170 H 70-105 MG/DL Calcium Level 9.1 8.5-10.1 MG/DL Troponin I < 0.028 <0.028 NG/ML My Orders Orders - ROCKY SHINE MD Ekg Tracing (07/14/23 00:43) Ed Iv/Invasive Line Start (07/14/23 01:10) Cbc With Automated Diff (07/14/23 01:10) Basic Metabolic Panel (07/14/23 01:10) Chest 1 View, Ap/Pa Only (07/14/23 01:10) Troponin I Ogle (07/14/23 01:10) Prochlorperazine Injection (Prochlorpera (07/14/23 01:15) Diphenhydramine Injection (Diphenhydram (07/14/23 01:15) Ketorolac Injection (Ketorolac Injection (07/14/23 02:45) Medications Given in ED Current Medications Medications Dose Ordered Sig/Sy Route Start Time Stop Time Status Last Admin Dose Admin Diphenhydramine HCl 25 mg ONCE ONCE IVP 07/14/23 01:15 07/14/23 01:16 DC 07/14/23 01:32 25 MG Prochlorperazine Edisylate 10 mg ONCE ONCE IV 07/14/23 01:15 07/14/23 01:16 DC 07/14/23 01:32 10 MG Vital Signs/I&O 07/14/23 07/14/23 00:50 01:01 Temp 36.4 Pulse 76 Resp 20 B/P (MAP) 134/93 (107) Pulse Ox 96 O2 Delivery Room Air Room Air Progress Progress Note : Time: 02:47 Progress Note Patient seen and evaluated by me. Evaluation today includes physical exam, CBC, BMP, Troponin, EKG and singel view CXR. Pertinent pE findings - morbidly obese female in NAD who is holding an emesis bag to her mouth. VSS. Afebrile. Lungs clear but she does have a little audible upper airway wheeze. Chest non tender. Abdomen benign. Legs with 2+ edema. Ddx based on H&P - atypical CP, ACS, Aspiration, Pneumonia, Pleurisy; musculoskeletal CW pain Labs and imaging independently reviewed and interpreted by me. Her CBC shows a slightly elevated WBC of 13. otherwise WNL. Her BMP is normal, her troponin is undetectable (in light of CP going on for 2 solid days this rules out ACS). Her CXR shows no signs of effusion, infiltrate or other acute pathology. Her EKG is normal. Patient's nausea was treated with Compazine and benadryl which completely alleviated her symptoms. She had no deterioration in her condition during her evaluation. On re-evaluation she is resting comfortably. No concerning findings for aspiration, pneumonia or other conditions which would require further work up and admission. Patient comfortable with the plan of care and happy to be going home. Initial ECG Impression Date: Jul 14, 2023 Initial ECG Impression Time: 01:00 Initial ECG Rate: 78 Initial ECG Rhythm: Normal Sinus Initial ECG Intervals: Normal Initial ECG Impression: Normal Diagnostic Imaging Diagonstic Imaging: Xray Plain Films/CT/US/NM/MRI: chest Comments CXR independently reviewed and interpreted by me - no infiltrate or effusion , normal mediastinum Departure Impression Primary Impression: Atypical chest pain Additional Impression: Nausea & vomiting Qualified Codes: R11.2 - Nausea with vomiting, unspecified Disposition: 01 HOME, SELF-CARE Condition: Improved Departure-Patient Inst. Decision time for Depature: 02:55 Referrals: RADU BARRERA DO (PCP/Family) Primary Care Physician Patient Instructions: Chest Pain That Is Not Caused by the Heart (DC) Add. Discharge Instructions: Continue your daily medications as prescribed by your Primary Care Doctor. Call for a follow up appointment in the clinic for next week. Return to the Emergency Department for any new, concerning or emergent complaints. Copy Copies To 1: RADU BARRERA KATHRYN M MD Jul 14, 2023 01:01
[2023-07-14] MEDS ORDERED: diphenhydrAMINE INJ 50 MG/ML VIAL IVP ONE (01:15)
[2023-07-14] MEDS ORDERED: PROCHLORPERAZINE INJ 10 MG/2ML VIAL IV ONE (01:15)
[2023-07-14 01:29] LABS: BASOPHILS # (AUTO) 0.1 10^3/uL (0.0-0.1); BASOPHILS % (AUTO) 0 % (0-10); EOSINOPHILS # (AUTO) 0.1 10^3/uL (0.0-0.3); EOSINOPHILS % (AUTO) 1 % (0-10); HEMATOCRIT 43 % (35-52); HEMOGLOBIN 13.8 g/dL (11.5-16.0); LYMPHOCYTES % (AUTO) 15 % (12-44); MEAN CORPUSCULAR HEMOGLOBIN 28 pg (25-34); MEAN CORPUSCULAR HGB CONC 32 g/dL (32-36); MEAN CORPUSCULAR VOLUME 89 fL (80-99); MEAN PLATELET VOLUME 9.6 fL (9.0-12.2); MONOCYTES # (AUTO) 0.9 10^3/uL (0.0-1.0); MONOCYTES % (AUTO) 7 % (0-12); NEUTROPHILS # (AUTO) 10.2 10^3/uL (1.8-7.8); NEUTROPHILS % (AUTO) 76 % (42-75); PLATELET COUNT 255 10^3/uL (130-400); WHITE BLOOD COUNT 13.3 10^3/uL (4.3-11.0)
[2023-07-14 01:45] LABS: BUN/CREATININE RATIO 20; CALCIUM 9.1 MG/DL (8.5-10.1); CARBON DIOXIDE 24 MMOL/L (21-32); CHLORIDE 104 MMOL/L (98-107); CREATININE SERUM 0.84 MG/DL (0.60-1.30); GFR ESTIMATED 80; GLUCOSE 170 MG/DL (70-105); POTASSIUM 3.9 MMOL/L (3.6-5.0); SODIUM 140 MMOL/L (135-145)
[2023-07-14] MEDS ORDERED: KETOROLAC INJ 15 MG/ML VIAL IVP ONE (02:45)
[2023-07-14 03:03] VITALS: BP 115/79
--- NOTE | 2023-07-14 07:16 | Diagnostic Imaging Report ---
INDICATION: Dyspnea Single AP view of the chest is obtained with comparison made study of 12/03/2021 Heart size is within normal limits. Pulmonary vascularity is at the upper limits of normal. No pneumothorax or consolidation is identified. There is no evidence of significant pleural fluid. Advanced degenerative findings are seen in the acromioclavicular joints. IMPRESSION: Pulmonary vascularity is at the upper limits normal without overt edema or other acute abnormality. Dictated by: Dictated on workstation # [id number]
== END 2023-07-14 03:35 | disposition home or self-care (01) ==
LOC: EDUNIT# 00:40 → ER 00:42
DX: R07.89 Other chest pain (principal); R11.2 Nausea with vomiting, unspecified; E66.01 Morbid (severe) obesity due to excess calories; E11.9 Type 2 diabetes mellitus without complications; F17.210 Nicotine dependence, cigarettes, uncomplicated; F17.290 Nicotine dependence, other tobacco product, uncomplicated; Z28.310 Unvaccinated for COVID-19; Z91.040 Latex allergy status; Z79.4 Long term (current) use of insulin; Z68.44 Body mass index [BMI] 60.0-69.9, adult
CPT/HCPCS: 36415; 71045; 80048; 84484; 85025; 93005; 93041

== ENCOUNTER 2023-08-18 15:40 | Emergency (ER) | payer OTHER, MEDICAID ==
[~2023-08-18] VITALS: Ht 157.4 cm; Wt 181.4 kg
[~2023-08-18 15:40] MED LIST changes: -MECL-149 PO; +MECL-291 PO
--- NOTE | 2023-08-18 15:50 | ED Lower Extremity ---
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 She has severe pain at her left anterior veronica. She was given 100 mcg of fentanyl prior to arrival on the ambulance. Reviewing her records she is on Eliquis. She complains of no other injuries. All other systems reviewed and negative except documented per HPI. Voice recognition software was used to help create this chart Allergies and Home Medications Allergies Coded Allergies: latex (Verified Allergy, Intermediate, RASH, ITCHING, 03/02/11) vancomycin (Verified Allergy, Intermediate, HIVES, 03/02/11) iodine (Verified Allergy, Mild, "ILL", 03/02/11) lorazepam (Verified Allergy, Unknown, 07/12/17) phenobarbital (Verified Allergy, Unknown, 03/09/06) phenytoin (Verified Allergy, Unknown, 07/12/17) Patient Home Medication List Home Medication List Reviewed: Yes Albuterol Sulfate (Albuterol Sulfate) 2.5 Mg/3 Ml Vial.neb, 2.5 MG NEB Q4H PRN for SHORTNESS OF BREATH, (Reported) Entered as Reported by: CHARISSA PAYAN on 07/13/17 1051 Amoxicillin/Potassium Clav (Amox Tr-K Clv 875-125 mg Tab) 875 Mg-125 Mg Tablet, 1 EACH PO BID Prescribed by: Rosaline De Jesus on 03/18/232022 Apixaban (Eliquis) 5 Mg Tablet, 5 MG PO BID, (Reported) Entered as Reported by: RADU CASTILLO on 05/11/21 1142 Atorvastatin Calcium (Atorvastatin Calcium) 40 Mg Tablet, 40 MG PO DAILY, (Reported) Entered as Reported by: RADU CASTILLO on 05/11/21 114 Cephalexin (Cephalexin) 500 Mg Capsule, 500 MG PO BID Prescribed by: Ana Finn on 09/17/22 1731 Cephalexin (Cephalexin) 500 Mg Tablet, 500 MG PO BID Prescribed by: Rosaline De Jesus on 03/18/232022 Docusate Sodium (Stool Softener) 100 Mg Tablet, 100-200 MG PO BID PRN for CONSTIPATION-1ST LINE, (Reported) Entered as Reported by: RADU CASTILLO on 05/11/21 1142 Ergocalciferol (Vitamin D2) (Vitamin D2) 1,250 Mcg Capsule, 1,250 MCG PO FRI, (Reported) Entered as Reported by: RADU CASTILLO on 05/11/21 114 Fluticasone Propion/Salmeterol (Fluticasone-Salmeterol 250-50) 1 Each Blst.w.dev, 1 PUFF INH BID PRN for SHORTNESS OF BREATH, (Reported) Entered as Reported by: RADU CASTILLO on 05/11/21 1142 Fluticasone Propionate (Flonase Allergy Relief) 9.9 Ml Marion.susp, 1 SPRAY NSEACH BID PRN for CONGESTION, (Reported) Entered as Reported by: RADU CASTILLO on 05/11/21 1142 Furosemide (Furosemide) 40 Mg Tablet, 40 MG PO BID, (Reported) Entered as Reported by: CHARISSA PAYNA on 07/13/17 1051 Hydrocodone Bit/Acetaminophen (HYDROcodone/APAP 10/325 TABLET) 1 Ea Tab, 1-2 EA PO Q6H PRN for pain Prescribed by: WOOD ORTIZ on 12/03/21 1548 Hydroxyzine Pamoate (Hydroxyzine Pamoate) 25 Mg Capsule, 25 MG PO HS PRN for ANXIETY, (Reported) Entered as Reported by: CHARISSA PAYAN on 07/13/17 1053 Metformin HCl (Metformin HCl) 1,000 Mg Tablet, 1,000 MG PO BID, (Reported) Entered as Reported by: RADU CASTILLO on 05/11/21 1142 Metoprolol Succinate (Metoprolol Succinate) 25 Mg Tab.er.24h, 25 MG PO DAILY, (Reported) Entered as Reported by: RADU CASTILLO on 05/11/21 1142 Ondansetron (Ondansetron Odt) 4 Mg Tab.rapdis, 4-8 MG PO Q6H PRN for NAUSEA/VOMITING Prescribed by: WOOD ORTIZ on 12/03/21 1548 Oxycodone HCl/Acetaminophen (Percocet 10-325 mg Tablet) 1 Each Tablet, 1 TAB PO Q4H PRN for PAIN Prescribed by: RAQUEL WEEMS on 12/08/21 1458 Oxycodone Hcl (Oxyir Tablet) 5 Mg Tab, 5 MG PO Q8H PRN for PAIN-MODERATE (5-7) Prescribed by: VALERI ARROYO on 05/13/21 1115 Pantoprazole Sodium (Pantoprazole Sodium) 20 Mg Tablet.dr, 20 MG PO DAILY, (Reported) Entered as Reported by: RADU CASTILLO on 05/11/21 1142 Potassium Chloride (Klor-Con M20) 20 Meq Tab.er.prt, 20 MEQ PO BID, (Reported) Entered as Reported by: RADU CASTILLO on 05/11/21 1147 Sertraline HCl (Sertraline HCl) 100 Mg Tablet, 100 MG PO DAILY, (Reported) Entered as Reported by: RADU CASTILLO on 05/11/21 1142 Silver Sulfadiazine (Ssd) 25 Gm Cream..g., 1 APPLIC TOP BID PRN for SKIN IRRITATION, (Reported) Entered as Reported by: RADU CASTILLO on 05/11/21 1142 Sulfamethoxazole/Trimethoprim (Bactrim Ds Tablet) 1 Each Tablet, 1 EACH PO BID Prescribed by: VALERI ARROYO on 06/08/22 0935 Sumatriptan Succinate (Sumatriptan Succinate) 50 Mg Tablet, 50 MG PO UD PRN for MIGRAINE, (Reported) Entered as Reported by: RADU CASTILLO on 05/11/21 1142 [oxy] Prescribed by: RAQUEL WEEMS on 12/08/21 1455 Review of Systems Constitutional: see HPI Past Xirxcjx-Dzdbke-Anwkgw Hx Patient Social History Tobacco Use?: No Use of E-Cig and/or Vaping dev: No Substance use?: No Alcohol Use?: No Immunizations Up To Date First/Initial COVID19 Vaccinat: NOT VACC, DECLINED Second COVID19 Vaccination Koko: NOT VACC, DECLINED Third COVID19 Vaccination Date: NOT VACC, DECLINED Past Medical History Surgery/Hospitalization HX: COPD, A FIB, HTN, NIDDM, GERD, HLD, [place], SEIZURES, ANXIETY/DEPRESSION HERNIA C SECT X 2, LAPAROTOMY, GASTRIC SLEEVE, MORBID OBESITY Surgeries: Yes (LAPAROTOMY, C-SECTIONS, HERNIA REPAIR x 8-9, CARDIAC ABLATION, SLEEVE ) Abdominal, Appendectomy, Cardiac, Section Respiratory: Yes (CHRONIC RESPIRATORY FAILURE) Sleep Apnea, COPD Cardiac: Yes Atrial Fibrillation, Chronic Edema/Swelling, Heart Attack, High Cholesterol, Hypertension Neurological: Yes Seizure Disorder Reproductive Disorders: Yes Female Reproductive Disorders: Ovarian Cyst Genitourinary: No Gastrointestinal: Yes (VENTRAL HERNIA) Abdominal Hernia, Gastroesophageal Reflux Musculoskeletal: Yes (NON-MOBILE/BED BOUND DUE TO MORBID OBESITY) Endocrine: Yes (MORBID OBESITY) Diabetes, Insulin dep HEENT: No Cancer: No Psychosocial: Yes Anxiety, Depression Integumentary: No Blood Disorders: No Family Medical History Alzheimer's disease 19 MOTHER Arthritis 19 MOTHER Asthma 19 FATHER 19 MOTHER Colon cancer 19 MOTHER Completed stroke 19 FATHER 19 MOTHER Deafness or hearing loss Dementia 19 MOTHER Diabetes mellitus 19 FATHER Glaucoma 19 FATHER 19 MOTHER Hypertension 19 FATHER 19 MOTHER Myocardial infarction 19 FATHER 19 MOTHER Respiratory disorder 19 MOTHER No Pertinent Family Hx SOCIAL HISTORY: -ETOH--RARE USE -DRUGS--THC, COCAINE (SNORTS IT), METHAMPHETAMINE (SNORTS IT)--ON 03/02/21 CLAIMS "NO DRUGS FOR 13 YEARS" BUT TESTED + FOR METHAPMPHETAMINES -SMOKES 3 PPD, NOW "VAPES" PAST SURGICAL HISTORY: -EXPLORATORY LAPAROTOMY FOR OVARIAN CYST -MULTIPLE HERNIA REPAIRS--5 OR 6 SURGERIES - X 2 -CARDIAC ABLATION FOR ATRIAL FIBRILLATION PT IS NON-MOBILE AND BED-BOUND AND REQUIRES A GILBERTO LIFT FOR TRANSFERS TO WHEELCHAIR PT REQUIRES 2 --24 HOUR CAREGIVERS WITH HER AT ALL TIMES. Physical Exam Vital Signs Vital Signs - First Documented 08/18/23 15:40 Pulse 71 Resp 22 B/P (MAP) 129/90 (103) Pulse Ox 94 O2 Delivery Room Air Capillary Refill : Height, Weight, BMI Height: 5'4.00" Weight: 396lbs. 0.0oz. [id number]; 56.00 BMI Method:Estimated General Appearance: WD/WN, no apparent distress Cardiovascular: regular rate, rhythm, no murmur Respiratory: chest non-tender, lungs clear, normal breath sounds Gastrointestinal: soft Hips: bilateral hip non-tender, bilateral hip normal inspection, bilateral hip normal range of motion Legs: left leg swelling (5 cm hematoma overlying left anterior veronica. Neurovascular and sensory intact distally with good pulses, sensation. Bilateral feet are slightly dusky but good cap refill and this appears chronic.); bilateral leg other (There is duskiness to the great toe bilaterally.) Ankles: bilateral ankle non-tender, bilateral ankle normal inspection, bilateral ankle normal range of motion Feet: bilateral foot non-tender, bilateral foot normal inspection, bilateral foot normal range of motion Neurologic/Tendon: normal sensation, normal motor functions, normal tendon fu nctions Neurologic/Psychiatric: alert, oriented x 3 Skin: other (There is a purplish hue to bilateral great toes with normal capillary refill. This is equal bilaterally.) Progress/Results/Core Measures Results/Orders My Orders Orders - HARLEEN KAPOOR DO Tibia/Fibula, Left, 2 Views (08/18/23 15:46) Hydrocodone/Apap 5/325 Tablet (Hydrocod (08/18/23 16:00) Medications Given in ED Current Medications Medications Dose Ordered Sig/Sy Route Start Time Stop Time Status Last Admin Dose Admin Acetaminophen/ Hydrocodone Bitart 1 ea ONCE ONCE PO 08/18/23 16:00 08/18/23 16:01 DC 08/18/23 16:06 1 EA Vital Signs/I&O 08/18/23 15:40 Pulse 71 Resp 22 B/P (MAP) 129/90 (103) Pulse Ox 94 O2 Delivery Room Air Departure Communication (Admissions) X-rays negative on my independent review. She is neurovascular and sensory intact. She is full Gilberto lift, bedbound according to her caregiver at bedside. She will be transported back via EMS who are on their way. Impression Primary Impression: Contusion of skin Additional Impression: Hematoma Disposition: 01 HOME, SELF-CARE Condition: Stable Departure-Patient Inst. Referrals: RADU BARRERA DO (PCP/Family) Primary Care Physician Patient Instructions: Contusion (DC) Add. Discharge Instructions: The pain medication as prescribed as needed. Increase your fluids at home and rest. I encourage you to walk as tolerated. The bruising will likely get worse before gets better which is to be expected. Return to the emergency department for any severe concerns All discharge instructions reviewed with patient and/or family. Voiced understanding. HARLEEN KAPOOR DO Aug 18, 2023 15:50
[2023-08-18] MEDS ORDERED: HYDROcodone/ACETAMINOPHEN 5 MG/325 MG TABLET PO ONE (16:00)
--- NOTE | 2023-08-18 16:19 | Diagnostic Imaging Report ---
EXAMINATION: Left tibia and fibula 2 views HISTORY: Leg injury. COMPARISON: None available. FINDINGS: There is soft tissue swelling over the anterior left leg. No fracture or dislocation. There is osteoarthritis of the left knee. IMPRESSION: 1. No fracture in the left tibia or fibula. Dictated by: Dictated on workstation # [id number]
[2023-08-18 17:21] VITALS: BP 139/73
[2023-08-19] MEDS ORDERED: ACHD5005 PO (08:51)
== END 2023-08-18 17:51 | disposition home or self-care (01) ==
LOC: EDUNIT# 15:41 → ER 15:45
DX: S80.12XA Contusion of left lower leg, initial encounter (principal); E66.01 Morbid (severe) obesity due to excess calories; F17.210 Nicotine dependence, cigarettes, uncomplicated; F17.290 Nicotine dependence, other tobacco product, uncomplicated; Z79.01 Long term (current) use of anticoagulants; Z91.040 Latex allergy status; Z28.310 Unvaccinated for COVID-19; Z68.43 Body mass index [BMI] 50.0-59.9, adult; W20.8XXA Other cause of strike by thrown, projected or falling object, initial encounter; Y92.59 Other trade areas as the place of occurrence of the external cause; Y99.0 Civilian activity done for income or pay
CPT/HCPCS: 73590

== ENCOUNTER 2023-10-18 04:50 | Inpatient (IN) | payer OTHER, MEDICAID ==
[~2023-10-18] VITALS: Ht 162 cm; Wt 174.0 kg
[~2023-10-18 04:50] MED LIST changes: +ACHD5005 PO
--- NOTE | 2023-10-18 04:59 | ED Abdominal Pain ---
General Stated Complaint: ABD PX Source of Information: Patient, EMS (ROCKY SHINE MD) History of Present Illness Date Seen by Provider: Oct 18, 2023 Time Seen by Provider: 04:59 Initial Comments Patient is a 57-year-old female who presents to the emergency department with a chief complaint of abdominal pain, nausea vomiting. She has a history of super morbid obesity with multiple ventral hernias, has had multiple repeated visits to the emergency room for similar complaints. She states her pain, nausea vomiting started approximately 3 hours prior to arrival. Last oral intake was for supper last night when she had pineapple and pork roast and potatoes. No blood in her emesis. Her last bowel movement was this morning. No fevers or c hills. She is very nauseated. Crying. States she is following up with a surgeon at and she had a telehealth visit yesterday in anticipation of hopefully having her hernias repaired. She does not know what works for pain, she states she does not take pain medicine at home. No urinary complaints. Timing/Duration: 1-3 Hours Severity/Quality: Severe Location: Generalized Abdomen Activities at Onset: Rest Associated Symptoms: Nausea/Vomiting (ROCKY SHINE MD) Allergies and Home Medications Allergies Coded Allergies: latex (Verified Allergy, Intermediate, RASH, ITCHING, 03/02/11) vancomycin (Verified Allergy, Intermediate, HIVES, 03/02/11) iodine (Verified Allergy, Mild, "ILL", 03/02/11) lorazepam (Verified Allergy, Unknown, 07/12/17) phenobarbital (Verified Allergy, Unknown, 03/09/06) phenytoin (Verified Allergy, Unknown, 07/12/17) Patient Home Medication List Home Medication List Reviewed: Yes (ROCKY SHINE MD) Albuterol Sulfate (Albuterol Sulfate) 2.5 Mg/3 Ml Vial.neb, 2.5 MG NEB Q4H PRN for SHORTNESS OF BREATH, (Reported) Entered as Reported by: CHARISSA PAYAN on 07/13/17 1051 Amoxicillin/Potassium Clav (Amox Tr-K Clv 875-125 mg Tab) 875 Mg-125 Mg Tablet, 1 EACH PO BID Prescribed by: Rosaline De Jesus on 03/18/232022 Apixaban (Eliquis) 5 Mg Tablet, 5 MG PO BID, (Reported) Entered as Reported by: RADU CASTILLO on 05/11/21 1142 Atorvastatin Calcium (Atorvastatin Calcium) 40 Mg Tablet, 40 MG PO DAILY, (Reported) Entered as Reported by: RADU ACSTILLO on 05/11/21 1142 Cephalexin (Cephalexin) 500 Mg Capsule, 500 MG PO BID Prescribed by: Ana Finn on 09/17/22 1731 Cephalexin (Cephalexin) 500 Mg Tablet, 500 MG PO BID Prescribed by: Rosaline De Jesus on 03/18/232022 Docusate Sodium (Stool Softener) 100 Mg Tablet, 100-200 MG PO BID PRN for CONSTIPATION-1ST LINE, (Reported) Entered as Reported by: RADU CASTILLO on 05/11/21 114 Ergocalciferol (Vitamin D2) (Vitamin D2) 1,250 Mcg Capsule, 1,250 MCG PO FRI, (Reported) Entered as Reported by: RADU CASTILLO on 05/11/21 1142 Fluticasone Propion/Salmeterol (Fluticasone-Salmeterol 250-50) 1 Each Blst.w.dev, 1 PUFF INH BID PRN for SHORTNESS OF BREATH, (Reported) Entered as Reported by: RADU CASTILLO on 05/11/21 1142 Fluticasone Propionate (Flonase Allergy Relief) 9.9 Ml [place].susp, 1 SPRAY NSEACH BID PRN for CONGESTION, (Reported) Entered as Reported by: RADU CASTILLO on 05/11/21 1142 Furosemide (Furosemide) 40 Mg Tablet, 40 MG PO BID, (Reported) Entered as Reported by: CHARISSA PAYAN on 07/13/17 1051 Hydrocodone Bit/Acetaminophen (HYDROcodone/APAP 10/325 TABLET) 1 Ea Tab, 1-2 EA PO Q6H PRN for pain Prescribed by: WOOD ORTIZ on 12/03/21 1548 Hydrocodone/Acetaminophen (Hydrocodone-Acetamin 5-325 mg) 5 Mg-325 Mg Tablet, 1 TAB PO Q4H PRN for PAIN-MODERATE (5-7) Prescribed by: HARLEEN KAPOOR MD on 08/19/23 0853 Hydroxyzine Pamoate (Hydroxyzine Pamoate) 25 Mg Capsule, 25 MG PO HS PRN for ANXIETY, (Reported) Entered as Reported by: CHARISSA PAYAN on 07/13/17 1053 Metformin HCl (Metformin HCl) 1,000 Mg Tablet, 1,000 MG PO BID, (Reported) Entered as Reported by: RADU CASTILLO on 05/11/21 1142 Metoprolol Succinate (Metoprolol Succinate) 25 Mg Tab.er.24h, 25 MG PO DAILY, (Reported) Entered as Reported by: RADU CASTILLO on 05/11/21 1142 Ondansetron (Ondansetron Odt) 4 Mg Tab.rapdis, 4-8 MG PO Q6H PRN for NAUSEA/VOMITING Prescribed by: OWOD ORTIZ on 12/03/21 1548 Oxycodone HCl/Acetaminophen (Percocet 10-325 mg Tablet) 1 Each Tablet, 1 TAB PO Q4H PRN for PAIN Prescribed by: RAQUEL WEEMS on 12/08/21 1458 Oxycodone Hcl (Oxyir Tablet) 5 Mg Tab, 5 MG PO Q8H PRN for PAIN-MODERATE (5-7) Prescribed by: VALERI ARROYO on 05/13/21 1115 Pantoprazole Sodium (Pantoprazole Sodium) 20 Mg Tablet.dr, 20 MG PO DAILY, (Reported) Entered as Reported by: RADU CASTILLO on 05/11/21 1142 Potassium Chloride (Klor-Con M20) 20 Meq Tab.er.prt, 20 MEQ PO BID, (Reported) Entered as Reported by: RADU CASTILLO on 05/11/21 1147 Sertraline HCl (Sertraline HCl) 100 Mg Tablet, 100 MG PO DAILY, (Reported) Entered as Reported by: RADU CASTILLO on 05/11/21 1142 Silver Sulfadiazine (Ssd) 25 Gm Cream..g., 1 APPLIC TOP BID PRN for SKIN IRRITATION, (Reported) Entered as Reported by: RADU CASTILLO on 05/11/21 1142 Sulfamethoxazole/Trimethoprim (Bactrim Ds Tablet) 1 Each Tablet, 1 EACH PO BID Prescribed by: VALERI ARROYO on 06/08/22 0935 Sumatriptan Succinate (Sumatriptan Succinate) 50 Mg Tablet, 50 MG PO UD PRN for MIGRAINE, (Reported) Entered as Reported by: RADU CASTILLO on 05/11/21 1142 [oxy] Prescribed by: RAQUEL WEEMS on 12/08/21 1720 Review of Systems Review of Systems Constitutional: see HPI Respiratory: No Symptoms Reported Cardiovascular: No Symptoms Reported Gastrointestinal: Abdominal Pain, Nausea, Vomiting Genitourinary: No Symptoms Reported Musculoskeletal: no symptoms reported Skin: no symptoms reported (ROCKY SHINE MD) Past Copdcme-Bsrodc-Gtbssj Hx Immunizations Up To Date First/Initial COVID19 Vaccinat: NOT VACC, DECLINED Second COVID19 Vaccination Koko: NOT VACC, DECLINED Third COVID19 Vaccination Date: NOT VACC, DECLINED (ROCKY SHINE MD) Past Medical History Surgery/Hospitalization HX: COPD, A FIB, HTN, NIDDM, GERD, HLD, LEO, PR, SEIZURES, ANXIETY/DEPRESSION HERNIA C SECT X 2, LAPAROTOMY, GASTRIC SLEEVE, MORBID OBESITY Surgeries: Yes (LAPAROTOMY, C-SECTIONS, HERNIA REPAIR x 8-9, CARDIAC ABLATION, SLEEVE ) Abdominal, Appendectomy, Cardiac, Section Respiratory: Yes (CHRONIC RESPIRATORY FAILURE) Sleep Apnea, COPD Cardiac: Yes Atrial Fibrillation, Chronic Edema/Swelling, Heart Attack, High Cholesterol, Hypertension Neurological: Yes Seizure Disorder Reproductive Disorders: Yes Female Reproductive Disorders: Ovarian Cyst Genitourinary: No Gastrointestinal: Yes (VENTRAL HERNIA) Abdominal Hernia, Gastroesophageal Reflux Musculoskeletal: Yes (NON-MOBILE/BED BOUND DUE TO MORBID OBESITY) Endocrine: Yes (MORBID OBESITY) Diabetes, Insulin dep HEENT: No Cancer: No Psychosocial: Yes Anxiety, Depression Integumentary: No Blood Disorders: No (ROCKY SHINE MD) Family Medical History Alzheimer's disease 19 MOTHER Arthritis 19 MOTHER Asthma 19 FATHER 19 MOTHER Colon cancer 19 MOTHER Completed stroke 19 FATHER 19 MOTHER Deafness or hearing loss Dementia 19 MOTHER Diabetes mellitus 19 FATHER Glaucoma 19 FATHER 19 MOTHER Hypertension 19 FATHER 19 MOTHER Myocardial infarction 19 FATHER 19 MOTHER Respiratory disorder 19 MOTHER No Pertinent Family Hx SOCIAL HISTORY: -ETOH--RARE USE -DRUGS--THC, COCAINE (SNORTS IT), METHAMPHETAMINE (SNORTS IT)--ON 03/02/21 CLAIMS "NO DRUGS FOR 13 YEARS" BUT TESTED + FOR METHAPMPHETAMINES -SMOKES 3 PPD, NOW "VAPES" PAST SURGICAL HISTORY: -EXPLORATORY LAPAROTOMY FOR OVARIAN CYST -MULTIPLE HERNIA REPAIRS--5 OR 6 SURGERIES - X 2 -CARDIAC ABLATION FOR ATRIAL FIBRILLATION PT IS NON-MOBILE AND BED-BOUND AND REQUIRES A GILBERTO LIFT FOR TRANSFERS TO WHEELCHAIR PT REQUIRES 2 --24 HOUR CAREGIVERS WITH HER AT ALL TIMES. (ROCKY SHINE MD) Physical Exam Vital Signs Vital Signs - First Documented 10/18/23 05:00 Temp 36.0 Pulse 79 Resp 20 B/P (MAP) 152/90 (110) Pulse Ox 97 O2 Delivery Room Air (AMBROSIO POLANCO MD) Vital Signs Capillary Refill : (ROCKY SHINE MD) Height/Weight/BMI Height: 5'4.00" Weight: 396lbs. 0.0oz. 179.249687wr; 73.00 BMI Method:Estimated General Appearance: severe distress, obese HEENT: PERRL/EOMI Respiratory: lungs clear, normal breath sounds, no respiratory distress, no accessory muscle use Cardiovascular: regular rate, rhythm Gastrointestinal: soft, tenderness, other (Bowel sounds are auscultated over each of the hernia sites. No high-pitched tinkling bowel sounds. She is very tender to palpation) Neurologic/Psychiatric: alert, other (Anxious, crying) Skin: normal color, warm/dry (ROCKY SHINE MD) Focused Exam Lactate Level 10/18/23 05:40: Lactic Acid Level 0.86 (AMBROSIO POLANCO MD) Lactic Acid Level Laboratory Tests Test 10/18/23 05:40 Lactic Acid Level 0.86 MMOL/L (0.50-2.00) (AMBROSIO POLANCO MD) Progress/Results/Core Measures Results/Orders Lab Results Laboratory Tests Test 10/18/23 05:40 Range/Units White Blood Count 10.3 4.3-11.0 10^3/uL Red Blood Count 5.09 3.80-5.11 10^6/uL Hemoglobin 14.1 11.5-16.0 g/dL Hematocrit 46 35-52 % Mean Corpuscular Volume 90 80-99 fL Mean Corpuscular Hemoglobin 28 25-34 pg Mean Corpuscular Hemoglobin Concent 31 L 32-36 g/dL Red Cell Distribution Width 16.7 H 10.0-14.5 % Platelet Count 214 130-400 10^3/uL Mean Platelet Volume 9.2 9.0-12.2 fL Immature Granulocyte % (Auto) 0 % Neutrophils (%) (Auto) 84 H 42-75 % Lymphocytes (%) (Auto) 11 L 12-44 % Monocytes (%) (Auto) 5 0-12 % Eosinophils (%) (Auto) 0 0-10 % Basophils (%) (Auto) 0 0-10 % Neutrophils # (Auto) 8.6 H 1.8-7.8 10^3/uL Lymphocytes # (Auto) 1.1 1.0-4.0 10^3/uL Monocytes # (Auto) 0.5 0.0-1.0 10^3/uL Eosinophils # (Auto) 0.0 0.0-0.3 10^3/uL Basophils # (Auto) 0.0 0.0-0.1 10^3/uL Immature Granulocyte # (Auto) 0.0 0.0-0.1 10^3/uL Sodium Level 138 135-145 MMOL/L Potassium Level 3.8 3.6-5.0 MMOL/L Chloride Level 104 98-107 MMOL/L Carbon Dioxide Level 23 21-32 MMOL/L Anion Gap 11 5-14 MMOL/L Blood Urea Nitrogen 11 7-18 MG/DL Creatinine 0.80 0.60-1.30 MG/DL Estimat Glomerular Filtration Rate 85 BUN/Creatinine Ratio 14 Glucose Level 182 H 70-105 MG/DL Lactic Acid Level 0.86 0.50-2.00 MMOL/L Calcium Level 9.5 8.5-10.1 MG/DL Corrected Calcium 9.7 8.5-10.1 MG/DL Total Bilirubin 0.6 0.1-1.0 MG/DL Aspartate Amino Transf (AST/SGOT) 13 5-34 U/L Alanine Aminotransferase (ALT/SGPT) 15 0-55 U/L Alkaline Phosphatase 133 40-136 U/L Total Protein 7.2 6.4-8.2 GM/DL Albumin 3.8 3.2-4.5 GM/DL (AMBROSIO POLANCO MD) My Orders Orders - AMBROSIO POLANCO MD Ct Abdomen/Pelvis Wo (10/18/23 06:47) Code/Resuscitation (10/18/23 08:33) Ed Admission (Communication) (10/18/23 08:33) Fentanyl Injection (Fentanyl Injection (10/18/23 08:33) Ondansetron Injection (Ondansetron Inj (10/18/23 11:45) Fentanyl Injection (Fentanyl Injection (10/18/23 11:34) (AMBROSIO POLANCO MD) Medications Given in ED Current Medications Medications Dose Ordered Sig/Sy Route Start Time Stop Time Status Last Admin Dose Admin Ondansetron HCl 4 mg ONCE ONCE IVP 10/18/23 11:45 10/18/23 11:46 DC 10/18/23 11:41 4 MG (AMBROSIO POLANCO MD) Vital Signs/I&O 10/18/23 10/18/23 05:00 12:40 Temp 36.0 Pulse 79 Resp 20 B/P (MAP) 152/90 (110) 149/88 Pulse Ox 97 O2 Delivery Room Air (AMBROSIO POLANCO MD) Progress Progress Note : Progress Note 0633: I have assumed care of the patient from Dr. Shine pending labs and improvement after morphine and ondansetron. CBC reviewed and is grossly nonconcerning. CMP reviewed and overall is grossly normal except elevated blood sugar with normal lactic acid noted. 0647: Patient has continued pain so we will go ahead and proceed with CT abdomen and pelvis to rule out obstruction. 0810: CT abdomen pelvis results noted. This is of difficult exam to evaluate due to body habitus but does appear to have small bowel dilation on my interpretation. Results noted and there is concerns for small bowel obstruction. I did discuss the case with Dr. Terrell, surgeon on-call. He would like to proceed with conservative management of bowel rest at this point and admission. Patient will need admission with primary care team. 0831: I did speak with Dr. Rock, on-call for [facility] inpatient team and she accepts patient for admission. This was discussed with the patient who agrees. Admit, inpatient status. 0837: I did order fentanyl for 50 mcg IV for jonatan nued pain. She has had 1 episode of vomiting. If vomiting persist, NG tube may be required. All of this was discussed with admitting team who agree. 1140: Patient boarding pending bed assignment open bed. She is complaining of pain and did vomit. Zofran 4 mg IV and fentanyl 50 mcg IV ordered. I did discuss the option of NG tube with her. 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 Monitor patient. (AMBROSIO POLANCO MD) Diagnostic Imaging Diagonstic Imaging: CT Plain Films/CT/US/NM/MRI: abdomen, pelvis Comments [facility] [place], [place] NAME: CLEOPATRA SHERIFF [facility] REC#: [id number] PT STATUS: REG ER : 1965 PHYSICIAN: AMBROSIO POLANCO MD ADMIT DATE: 10/18/23/ER Signed Date of Exam:10/18/23 CT ABDOMEN/PELVIS WO EXAMINATION: CT abdomen and pelvis without contrast. TECHNIQUE: Multiple contiguous axial images were obtained through the abdomen and pelvis without the use of intravenous contrast. All CT scans use one or more of the following dose optimizing techniques: automated exposure control, MA and/or KvP adjustment based on patient size and exam type or iterative reconstruction. HISTORY: Abdominal pain and nausea COMPARISON: 04/19/2023 FINDINGS: Lung bases: Bibasilar dependent atelectasis. Solid organs: The liver is normal. The gallbladder is normal. There is no biliary ductal dilation. Pancreas is normal. Spleen is normal. Adrenal glands are normal. The kidneys are normal without visualized calculus or hydronephrosis. Bowel: There are dilated air and fluid-filled loops of small bowel. There is a large complex ventral abdominal wall hernia through at least a 15 cm defect. Numerous loops of bowel enter within the area of herniation. A definitive transition point is not identified although bowel is not completely visualized secondary to patient body habitus and bzudg-zq-kwhu with multiple loops of bowel outside of the xbgok-jj-fylx. The visualized portions of the colon are unremarkable. The appendix is normal. Peritoneum: There is no intraperitoneal free fluid or free air. No suspicious lymphadenopathy. Vasculature: Normal without aneurysm. Musculoskeletal: Degenerative changes of the spine without suspicious osseous lesion or compression fracture. Pelvis: The uterus and adnexa are normal. The urinary bladder is normal. IMPRESSION: 1. Findings concerning for small bowel obstruction. A definitive transition point is not identified, however, evaluation is limited secondary to multiple loops of bowel not visualized within the aswoi-yu-mrpc secondary to patient body habitus and large hernia. Dictated by: Dictated on workstation # [id number] Dict: 10/18/23 0732 Trans: 10/18/23 0808 [facility] [id number] Interpreted by: ELVA CAMPBELL DO Electronically signed by: ELVA CAMPBELL DO 10/18/23 0808 (AMBROSIO POLANCO MD) Departure Communication (Admissions) Time/Spoke to Admitting Phy: 08:31 Time/Spoke to Consulting Phy: 08:10 (AMBROSIO POLANCO MD) Impression Primary Impression: Small bowel obstruction Additional Impression: Abdominal pain Qualified Codes: R10.84 - Generalized abdominal pain Disposition: ADMITTED INPATIENT Condition: Stable Admissions Decision to Admit Reason: Admit from ER (General) Decision to Admit/Date: Oct 18, 2023 Time/Decision to Admit Time: 08:10 (AMBROSIO POLANCO MD) Departure-Patient Inst. Referrals: RADU BARRERA DO (PCP/Family) Primary Care Physician Copy Copies To 1: RADU BARRERA KATHRYN M MD Oct 18, 2023 04:59 AMBROSIO POLANCO MD Oct 18, 2023 06:35
[2023-10-18] MEDS ORDERED: morphine INJ 4 MG/ML 1 ML (VIAL/SYRINGE) IVP ONE (05:30)
[2023-10-18] MEDS ORDERED: NS IV 1000 ML 1,000 ML IV SCH (05:30)
[2023-10-18] MEDS ORDERED: ONDANSETRON INJECTION 4 MG/2 ML (SDV) IVP ONE ×2 (05:30→11:45)
[2023-10-18 05:48] LABS: BASOPHILS % (AUTO) 0 % (0-10); EOSINOPHILS % (AUTO) 0 % (0-10); HEMATOCRIT 46 % (35-52); HEMOGLOBIN 14.1 g/dL (11.5-16.0); LYMPHOCYTES # (AUTO) 1.1 10^3/uL (1.0-4.0); LYMPHOCYTES % (AUTO) 11 % (12-44); MEAN CORPUSCULAR HEMOGLOBIN 28 pg (25-34); MEAN CORPUSCULAR HGB CONC 31 g/dL (32-36); MEAN CORPUSCULAR VOLUME 90 fL (80-99); MEAN PLATELET VOLUME 9.2 fL (9.0-12.2); MONOCYTES # (AUTO) 0.5 10^3/uL (0.0-1.0); MONOCYTES % (AUTO) 5 % (0-12); NEUTROPHILS # (AUTO) 8.6 10^3/uL (1.8-7.8); NEUTROPHILS % (AUTO) 84 % (42-75); PLATELET COUNT 214 10^3/uL (130-400); WHITE BLOOD COUNT 10.3 10^3/uL (4.3-11.0)
[2023-10-18 06:06] LABS: ALBUMIN 3.8 GM/DL (3.2-4.5)
[2023-10-18 06:07] LABS: POTASSIUM 3.8 MMOL/L (3.6-5.0)
[2023-10-18 06:08] LABS: CALCIUM 9.5 MG/DL (8.5-10.1)
[2023-10-18 06:09] LABS: TOTAL PROTEIN 7.2 GM/DL (6.4-8.2)
[2023-10-18 06:11] LABS: BILIRUBIN,TOTAL 0.6 MG/DL (0.1-1.0)
[2023-10-18 06:13] LABS: CREATININE SERUM 0.8 MG/DL (0.60-1.30)
--- NOTE | 2023-10-18 07:43 | Diagnostic Imaging Report ---
EXAMINATION: CT abdomen and pelvis without contrast. TECHNIQUE: Multiple contiguous axial images were obtained through the abdomen and pelvis without the use of intravenous contrast. All CT scans use one or more of the following dose optimizing techniques: automated exposure control, MA and/or KvP adjustment based on patient size and exam type or iterative reconstruction. HISTORY: Abdominal pain and nausea COMPARISON: 04/19/2023 FINDINGS: Lung bases: Bibasilar dependent atelectasis. Solid organs: The liver is normal. The gallbladder is normal. There is no biliary ductal dilation. Pancreas is normal. Spleen is normal. Adrenal glands are normal. The kidneys are normal without visualized calculus or hydronephrosis. Bowel: There are dilated air and fluid-filled loops of small bowel. There is a large complex ventral abdominal wall hernia through at least a 15 cm defect. Numerous loops of bowel enter within the area of herniation. A definitive transition point is not identified although bowel is not completely visualized secondary to patient body habitus and jysfm-rj-efvq with multiple loops of bowel outside of the merqg-fi-eokq. The visualized portions of the colon are unremarkable. The appendix is normal. Peritoneum: There is no intraperitoneal free fluid or free air. No suspicious lymphadenopathy. Vasculature: Normal without aneurysm. Musculoskeletal: Degenerative changes of the spine without suspicious osseous lesion or compression fracture. Pelvis: The uterus and adnexa are normal. The urinary bladder is normal. IMPRESSION: 1. Findings concerning for small bowel obstruction. A definitive transition point is not identified, however, evaluation is limited secondary to multiple loops of bowel not visualized within the zejvw-em-tblu secondary to patient body habitus and large hernia. Dictated by: Dictated on workstation # [id number]
[2023-10-18] MEDS ORDERED: fentaNYL INJECTION 100 MCG/2 ML VIAL IVP STA ×2 (08:33→11:34)
[2023-10-18] MEDS ORDERED: PATIENT MAY USE OWN MEDS, ALL PO SCH (13:15)
[2023-10-18 13:18] VITALS: BP 150/80
[2023-10-18] MEDS: LACTATED RINGERS 1,000 ML 1,000 ML IV SCH ×2 (13:32→20:07)
--- NOTE | 2023-10-18 15:25 | History & Physical ---
MELISSA BELL 10/18/23 1525: HPI History of Present Illness: Abdominal pain, nausea and vomiting Source: patient Date seen by provider: Oct 18, 2023 Time Seen by Provider: 14:30 Attending Physician José Miguel Cleary MD PCP Jeff Barth V DO Consult Yomaira Merino is a 57 yo with a history of hernias, COPD, Afib, HTN, and DM who was taken to the ED due to sever abdominal pain. Patient reports that symptoms started around 3 AM as diffuse abdominal pain as well as nausea, vomiting and headaches. Patient rates the pain a 6/10 that is worsened with movement. She has not eaten anything since yesterday evening due to the nausea and states that she has vomited up a "bucket full" before presenting to the ED. Her last bowel movement was on Tuesday and was very loose. She has had similar symptoms before with the last time happening about a year ago where she says she was treated at for a small bowel obstruction. Patient was given some pain medication in the ED that helped with the pain somewhat but she still has significant pain in the afternoon. During the interview, patient had an episode where she had sudden nausea and vomited. Patient also endorses symptoms of dizziness, fatigue, fever, chills, dysphasia, and heartburn. Date of Admission Oct 18, 2023 at 12:41 Home Medications Home Medications Reviewed patient Home Medication Reconciliation performed by pharmacy medication reconciliations emissions repair technician and/or nursing. Patients Allergies have been reviewed. Allergies Coded Allergies: latex (Verified Allergy, Intermediate, RASH, ITCHING, 03/02/11) vancomycin (Verified Allergy, Intermediate, HIVES, 03/02/11) iodine (Verified Allergy, Mild, "ILL", 03/02/11) lorazepam (Verified Allergy, Unknown, 07/12/17) phenobarbital (Verified Allergy, Unknown, 03/09/06) phenytoin (Verified Allergy, Unknown, 07/12/17) [id number]-[id number] Hx Patient Social History Smoking Status: Former Smoker (quit 3 weeks ago. Prior smoked 1PPD) Alcohol Use?: No Substance type: Methamphetamine (HX of use but hasn't used in many years), Marijuana (history of marijuna use but not current. been over 20 years. ) Tobacco type used: Cigarettes Immunizations Up To Date Influenza Vaccine Up-to-Date: Yes; Up-to-Date First/Initial COVID19 Vaccinat: NOT VACC, DECLINED Second COVID19 Vaccination Koko: NOT VACC, DECLINED Third COVID19 Vaccination Date: NOT VACC, DECLINED Past Medical History PMHx: DM Afib HTN GERD Brain anurism Blood clots COPD SurgHx: 2x C sections multiple abdominal surgeries for hernias Gastric sleeve surgery Family Medical History Significant Family History: Heart Disease, Diabetes, Hypertension Review of Systems ([facility]) Constitutional: chills, dizziness, fever EENTM: No ear pain, No blurred vision, No eye pain Respiratory: No short of breath Cardiovascular: No palpitations Gastrointestinal: abdominal pain (diffuse but especially in RUQ and RLQ), dysphagia, heartburn, nausea, vomiting Musculoskeletal: joint pain, muscle pain ("hurts all over") Psychiatric/Neurological: Headache Reviewed Test Results Reviewed Test Results Lab Laboratory Tests 10/18/23 05:40: White Blood Count 10.3, Red Blood Count 5.09, Hemoglobin 14.1, Hematocrit 46, Mean Corpuscular Volume 90, Mean Corpuscular Hemoglobin 28, Mean Corpuscular Hemoglobin Concent 31L, Red Cell Distribution Width 16.7H, Platelet Count 214, Mean Platelet Volume 9.2, Immature Granulocyte % (Auto) 0, Neutrophils (%) ( Auto) 84H, Lymphocytes (%) (Auto) 11L, Monocytes (%) (Auto) 5, Eosinophils (%) (Auto) 0, Basophils (%) (Auto) 0, Neutrophils # (Auto) 8.6H, Lymphocytes # (Auto) 1.1, Monocytes # (Auto) 0.5, Eosinophils # (Auto) 0.0, Basophils # (Auto) 0.0, Immature Granulocyte # (Auto) 0.0, Sodium Level 138, Potassium Level 3.8, Chloride Level 104, Carbon Dioxide Level 23, Anion Gap 11, Blood Urea Nitrogen 11, Creatinine 0.80, Estimat Glomerular Filtration Rate 85, BUN/Creatinine Ratio 14, Glucose Level 182H, Lactic Acid Level 0.86, Calcium Level 9.5, Corrected Calcium 9.7, Total Bilirubin 0.6, Aspartate Amino Transf (AST/SGOT) 13, Alanine Aminotransferase (ALT/SGPT) 15, Alkaline Phosphatase 133, Total Protein 7.2, Albumin 3.8 10/18/23 16:23: Glucometer 138H Radiology CT abdomen pelvis 12/5/23 IMPRESSION: 1. Findings concerning for small bowel obstruction. A definitive transition point is not identified, however, evaluation is limited secondary to multiple loops of bowel not visualized within the [id number] secondary to patient body habitus and large hernia. CXR 10/18/23 Atelectasis at the bases. No pneumothorax or effusions. Proper NG tube placement. Physical Exam-([facility]) Physical Exam Vital Signs VS - Last 72 Hours, by Label 10/18/23 10/18/23 10/18/23 10/18/23 05:00 12:40 13:18 15:37 Temp 36.0 35.8 36.4 Pulse 79 70 77 Resp 20 16 20 B/P (MAP) 152/90 (110) 149/88 150/80 (103) 151/95 (113) Pulse Ox 97 99 99 O2 Delivery Room Air Nasal Cannula Nasal Cannula O2 Flow Rate 2.00 2.00 Capillary Refill : Less Than 3 Seconds General Appearance: moderate distress, obese HEENT: PERRL/EOMI Respiratory: lungs clear, normal breath sounds, no respiratory distress Cardiovascular: regular rate, rhythm Gastrointestinal: normal bowel sounds, tenderness (diffuse tenderness but more sever in RUQ and RLQ), hernia (multiple ventral hernias present over the abdomen ) Extremities: calf tenderness (patient had trauma to left leg 3 weeks ago. ), swelling Neurologic/Psychiatric: oriented x 3, other (Lethargic ) Skin: warm/dry Assessment/Plan Assessment/Plan (1) Small bowel obstruction Onset Date: ~ 10/18/2023 Status: Acute Assessment & Plan: CT abdomen pelvis: Findings concerning for small bowel obstruction Surgery consulted and appreciate conservative treatment Plan: Patient made NPO IV Morphine for pain. NG tube to suction stomach contents (2) Nausea and vomiting Status: Acute Assessment & Plan: Start IV Zofran PRN Qualifiers: Qualified Codes: R11.2 - Nausea with vomiting, unspecified (3) Afib Assessment & Plan: Start Lovenox for Afib and DVT prophylaxis Qualifiers: Qualified Codes: I48.91 - Unspecified atrial fibrillation (4) Diabetes mellitus Status: Chronic Assessment & Plan: Discontinue home medications and start insulin on sliding scale Qualifiers: (5) HTN (hypertension) Status: Chronic Assessment & Plan: Patients BP have been around the 150s/80s-90s. Patient hasn't taken her HTN medication due to have normal BP readings recently Will Qualifiers: Qualified Codes: I10 - Essential (primary) hypertension (6) COPD (chronic obstructive pulmonary disease) Status: Chronic Qualifiers: Qualified Codes: J44.9 - Chronic obstructive pulmonary disease, unspecified (7) HLD (hyperlipidemia) Status: Chronic Qualifiers: Qualified Codes: E78.5 - Hyperlipidemia, unspecified JOSÉ MIGUEL CLEARY MD 10/18/232121: Home Medications Allergies Coded Allergies: latex (Verified Allergy, Intermediate, RASH, ITCHING, 03/02/11) vancomycin (Verified Allergy, Intermediate, HIVES, 03/02/11) iodine (Verified Allergy, Mild, "ILL", 03/02/11) lorazepam (Verified Allergy, Unknown, 07/12/17) phenobarbital (Verified Allergy, Unknown, 03/09/06) phenytoin (Verified Allergy, Unknown, 07/12/17) MEJ-Wteseu-Vjtfzy Hx Family Medical History Family History: Alzheimer's disease 19 MOTHER Arthritis 19 MOTHER Asthma 19 FATHER 19 MOTHER Colon cancer 19 MOTHER Completed stroke 19 FATHER 19 MOTHER Deafness or hearing loss Dementia 19 MOTHER Diabetes mellitus 19 FATHER Glaucoma 19 FATHER 19 MOTHER Hypertension 19 FATHER 19 MOTHER Myocardial infarction 19 FATHER 19 MOTHER Respiratory disorder 19 MOTHER Assessment/Plan Assessment/Plan Admission Status: Inpatient Order (span 2 midnights) Reason for Inpatient Admission: SBO Supervisory-Addendum Brief Verification & Attestation Participated in pt care: history, MDM, physical Personally performed: exam, history, MDM, supervision of care Care discussed with: Medical Student Procedures: n/a I personally performed or re-performed the history, physical exam and treatment for the E/M. I discussed the case with the Medical Student, and concur with the Medical Student documentation of history, physical exam and treatment plan unless otherwise noted. Monitor BP and use IV meds as needed given she is NPO. MELISSA BELL Oct 18, 2023 15:25 JOSÉ MIGUEL CLEARY MD Oct 18, 2023 21:22
[2023-10-18 15:37] VITALS: BP 151/95
[2023-10-18] MEDS: inSUlin ASPART 1 UNIT/0.01 ML (PER UNIT) SC SCH ×3 (16:35→23:47)
[2023-10-18] MEDS: ONDANSETRON INJECTION 4 MG/2 ML (SDV) IVP PRN (17:23)
[2023-10-18] MEDS: morphine INJ 4 MG/ML 1 ML (VIAL/SYRINGE) IVP PRN ×2 (17:23→23:54)
--- NOTE | 2023-10-18 17:29 | CONSULTATION REPORT ---
DATE OF SERVICE: 10/18/2023 ATTENDING PRIMARY CARE PHYSICIAN: Dr. Jeff Barth. ADMITTING PHYSICIAN: Lolly Rock M.D. HISTORY OF PRESENT ILLNESS: The patient is a 57-year-old female who presented to the Emergency Department with a chief complaint of abdominal distention, crampy pain, as well as nausea and vomiting. This is not new to her and she has had a recurrent episodes of this in the past. The patient falls into the category of a super obese with a body mass index around the 60-70 range. Due to this morbid obesity, she is a very high risk for surgery, especially for repair of hernias with unacceptable reoccurrence rates. The patient presented with similar symptoms of crampy abdominal pain, nausea and vomiting and the finding of a known very large ventral abdominal incisional hernia with loss of domain. The patient actually was seen at [facility] by Telehealth; however, recommendations were made to proceed with medical weight loss before embarking upon any type of surgical intervention due to the unacceptable reoccurrence rate and the complexity of the surgery and high risk for other development of medical problems, namely pneumonia, DVT, pulmonary embolism, as well as other thromboembolic events as well as infection. The patient had a CT scan performed, which did show possible partial small bowel obstruction versus an ileus. Again, she has an extremely large ventral abdominal incisional hernia with loss of domain of the abdominal wall. Our recommendations will be to proceed with conservative medical management with bowel rest, IV fluids for hydration and symptomatic control with antinausea medication as well as pain medication as necessary. Based on the CT scan, this does not look to be a full type of obstruction and we will continue with this conservative therapy in hopes of allowing for her to regain bowel function and start a diet and allow her to continue with medical therapy once she is discharged home and continue follow up with [facility] with physician monitored dieting and eventual surgery, if she does meet criteria. PAST MEDICAL HISTORY: COPD, atrial fibrillation, hypertension, diabetes, gastroesophageal reflux disease, hyperlipidemia, obstructive sleep apnea, history of myocardial infarction, seizure disorder, anxiety and depression, and morbid obesity. PAST SURGICAL HISTORY: section x2, gastric sleeve resection, exploratory laparotomy, multiple abdominal incisional hernia repairs x8, cardiac ablation, appendectomy. ALLERGIES: LATEX VANCOMYCIN, IODINE, LORAZEPAM, PHENOBARBITAL, PHENYTOIN. MEDICATIONS: Albuterol nebulizer q.4 hours p.r.n., Augmentin b.i.d. Eliquis 5 mg b.i.d., atorvastatin 10 mg daily, cephalexin 500 mg b.i.d., Colace 100 mg b.i.d., fluticasone/salmeterol 250/50 mcg 1 puff b.i.d. p.r.n., fluticasone spray b.i.d. p.r.n., furosemide 40 mg b.i.d., hydrocodone 10/325 q.6 hours p.r.n., hydroxyzine 25 mg each day at bedtime p.r.n., metformin 1000 mg b.i.d., metoprolol 25 mg daily, Zofran 4 mg q.6 hours p.r.n., Protonix 40 mg daily, potassium 20 mEq b.i.d., sertraline 100 mg daily, silver sulfadiazine in affected areas b.i.d., Bactrim-DS b.i.d., sumatriptan 50 mg daily p.r.n. SOCIAL HISTORY: Previous history of heavy smoking with 3 packs a day and now uses vaporized nicotine, previous history of THC, cocaine, methamphetamine, and rare alcohol. FAMILY HISTORY: Noncontributory. VITAL SIGNS: Temperature 36.4, blood pressure 151/95, pulse 77, respirations 20, pulse ox 99% on 2 liters nasal cannula. REVIEW OF SYSTEMS: Well-nourished, nonambulatory patient who is considered in the super obese category. She is a bit fatigued due to recent administration of pain medication. At this time, she is not experiencing any nausea, no vomiting. No shortness of breath or difficulty breathing. No chest pain, palpitations, diaphoresis. It is unsure when her last bowel movement was. No fever, chills, no recent inadvertent weight loss. All other review of systems negative. PHYSICAL EXAMINATION: CHEST: Scattered rales and rhonchi bilaterally. HEART: Regular, no murmurs. EXTREMITIES: Plus 3/3 bilateral lower extremity edema. Negative Homans sign. HEENT: No scleral icterus. No cervical lymphadenopathy. ABDOMEN: Soft with large right lower hernia with loss of abdominal wall domain. SKIN: Warm, dry. LABORATORY DATA: WBC 10.3, hemoglobin 14.1, hematocrit 46, platelets 214, BUN 11, creatinine 0.80. Liver function enzymes normal. ASSESSMENT AND PLAN: A 57-year-old female with partial small bowel obstruction versus ileus due to a number of medical comorbidities, again including COPD, atrial fibrillation, hypertension, diabetes, hyperlipidemia, sleep apnea, seizure disorder, morbid obesity as well as large ventral abdominal incisional hernia with loss of domain. At this time, we feel that she likely has an ileus versus a partial small bowel obstruction. We will recommend completely conservative management with IV fluids and antinausea and antipain medications p.r.n. If she does develop bowel function with flatus or having a bowel movement, then we will slowly advance her diet. The type of large incisional hernia with loss of domain is a very specific surgery and something that requires a tertiary center; however, even [facility] evaluated her and saw the difficulty in this type of surgery. Because of this, our hands are tied, and if she does not have resolution of obstructive type of symptoms, we have no choice but to refer her on to some other tertiary center that would accept her. Hopefully, she will respond with conservative therapy alone. Job ID: [id number] DocumentID: [id number] Dictated Date: 10/18/2023 16:47:16 Rotary Lithographic Press Operator Date: 10/18/2023 17:27:00 Dictated By: JONATHAN GRIFFITH MD
--- NOTE | 2023-10-18 17:54 | Diagnostic Imaging Report ---
INDICATION: NG tube placement EXAMINATION: Chest 02/16/2023 COMPARISON: 07/14/2023 FINDINGS: 1 view of the chest. The tip of the NG tube is difficult to visualize but does course beneath the diaphragm. Heart prominent. Atelectasis at the bases. No pneumothorax or effusions. IMPRESSION: 1. NG tube tip difficult to visualize but does course beneath the diaphragm. Other findings as above. Dictated by: Dictated on workstation # [id number]
[2023-10-18 19:49] VITALS: BP 138/75
[2023-10-18 23:23] VITALS: BP 165/87
[2023-10-18] MEDS ORDERED: D5 1/2 NS 1,000 ML IV 1,000 ML IV ONE (23:50)
[2023-10-18] MEDS: D5 1/2 NS 1,000 ML IV 1,000 ML IV SCH (23:53)
[2023-10-19 03:10] VITALS: BP 135/76
[2023-10-19] MEDS: inSUlin ASPART 1 UNIT/0.01 ML (PER UNIT) SC SCH ×3 (04:36→18:18)
[2023-10-19] MEDS: morphine INJ 4 MG/ML 1 ML (VIAL/SYRINGE) IVP PRN ×6 (04:39→20:05)
[2023-10-19 06:26] LABS: HEMATOCRIT 43 % (35-52); HEMOGLOBIN 13.4 g/dL (11.5-16.0); MEAN CORPUSCULAR HEMOGLOBIN 28 pg (25-34); MEAN CORPUSCULAR HGB CONC 31 g/dL (32-36); MEAN CORPUSCULAR VOLUME 91 fL (80-99); MEAN PLATELET VOLUME 9.6 fL (9.0-12.2); PLATELET COUNT 205 10^3/uL (130-400); WHITE BLOOD COUNT 8.6 10^3/uL (4.3-11.0)
[2023-10-19 06:34] LABS: ALBUMIN 3.2 GM/DL (3.2-4.5); POTASSIUM 3.6 MMOL/L (3.6-5.0)
[2023-10-19 06:35] LABS: CALCIUM 8.4 MG/DL (8.5-10.1)
[2023-10-19 06:38] LABS: BILIRUBIN,TOTAL 0.7 MG/DL (0.1-1.0)
[2023-10-19 06:40] LABS: CREATININE SERUM 0.74 MG/DL (0.60-1.30)
[2023-10-19 07:47] VITALS: BP 122/70
--- NOTE | 2023-10-19 08:22 | Progress Note ---
MELISSA BELL 10/19/23 0822: Subjective Subjective/Events-last exam Patient still complaining of pain 9/10 RLQ and RUQ. Patient states that her pain is only slightly improved today compared to yesterday and she still complains of severe nausea. She has not vomited since placement of NG tube but had had some dry heaving and some irritation due to the NG tube. She has not had a BM nor passed any gas. She still complains of headaches and feel that it is similar to migraines that she has had in the past and takes a home medications for that she couldn't remember. Patient is anxious about receiving care here and would wants to be transferred to due to the limited ability for surgical intervention if it became needed. Review of Systems General: Chills, Night Sweats; No Appetite; Other (Dizziness) HEENT: Head Aches; No Visual Changes, No Eye Pain, No Ear Pain Pulmonary: Dyspnea (with movement. ); No Cough Cardiovascular: Chest Pain, Palpitations (did have some yesterday. thinks it was due to being scared/anxious ) Gastrointestinal: Nausea, Abdominal Pain (diffuse but especially in RUQ and RLQ); No: Vomiting Genitourinary: No Dysuria Musculoskeletal: leg pain (left leg pain from trauma 3 weeks ago.) Focused Exam Lactate Level 10/18/23 05:40: Lactic Acid Level 0.86 Objective Exam Last Set of Vital Signs Vital Signs Date Time Temp Pulse Resp B/P (MAP) Pulse Ox O2 Delivery O2 Flow Rate FiO2 10/19/23 07:47 37.0 88 17 122/70 (87) 92 Room Air 10/18/23 19:13 2.00 Capillary Refill : Less Than 3 Seconds I&O Intake and Output 10/18/23 23:59 Intake Total 1000 ml Output Total 1300 ml Balance -300 ml Intake Oral 0 ml IV Total 1000 ml Output Urine Total 200 ml Gastric Drainage Total 1000 ml Emesis 100 ml Daily Weight Change No General: Alert, Oriented X3, Mild Distress HEENT: PERRLA, EOMI Neck: No LAD Lungs: Clear to Auscultation, Normal Air Movement Heart: Regular Rate Abdomen: Normal Bowel Sounds, Other (tenderness to palpation in RUQ, RLQ and Epigastric region ) Extremities: Normal Pulses Skin: No Significant Lesion Results/Procedures Lab Laboratory Tests 12/5/23 16:23: Glucometer 138H 12/5/23 20:11: Glucometer 112H 10/18/23 23:27: Glucometer 85 10/19/23 04:31: Glucometer 116H 10/19/23 05:27: White Blood Count 8.6, Red Blood Count 4.78, Hemoglobin 13.4, Hematocrit 43, Mean Corpuscular Volume 91, Mean Corpuscular Hemoglobin 28, Mean Corpuscular Hemoglobin Concent 31L, Red Cell Distribution Width 16.9H, Platelet Count 205, Mean Platelet Volume 9.6, Sodium Level 140, Potassium Level 3.6, Chloride Level 106, Carbon Dioxide Level 25, Anion Gap 9, Blood Urea Nitrogen 9, Creatinine 0.74, Estimat Glomerular Filtration Rate 93, BUN/Creatinine Ratio 12, Glucose Level 145H, Calcium Level 8.4L, Corrected Calcium 9.0, Total Bilirubin 0.7, Aspartate Amino Transf (AST/SGOT) 16, Alanine Aminotransferase (ALT/SGPT) 21, Alkaline Phosphatase 128, Total Protein 6.0L, Albumin 3.[address] abdomen pelvis 10/18/23 IMPRESSION: 1. Findings concerning for small bowel obstruction. A definitive transition point is not identified, however, evaluation is limited secondary to multiple loops of bowel not visualized within the [id number] secondary to patient body habitus and large hernia. CXR 10/18/23 Atelectasis at the bases. No pneumothorax or effusions. Proper NG tube placement. Assessment/Plan Assessment/Plan (1) Small bowel obstruction Onset Date: ~ 10/18/2023 Status: Acute Assessment & Plan: CT abdomen pelvis: Findings concerning for small bowel obstruction Surgery consulted and appreciate conservative treatment Pain /10. Has not had BM nor passed gas Plan: Continue NPO status IV Morphine Q2hr for pain. NG tube to suction stomach contents (2) Nausea and vomiting Status: Acute Assessment & Plan: Continue IV Zofran PRN Start IV pantoprazole Qualifiers: Qualified Codes: R11.2 - Nausea with vomiting, unspecified (3) Afib Status: Chronic Assessment & Plan: Increase Lovenox for therapeutic anticoagulation for Afib and DVT prophylaxis. Qualifiers: Qualified Codes: I48.91 - Unspecified atrial fibrillation (4) Headache Status: Acute Assessment & Plan: Patient has history of Migraines and has had significant headaches since admission Start patient on IV toradol Qualifiers: (5) Diabetes mellitus Status: Chronic Assessment & Plan: Discontinue home medications and start insulin on sliding scale Qualifiers: (6) HTN (hypertension) Status: Chronic Assessment & Plan: Start patient on IV Lasix Qualifiers: Qualified Codes: I10 - Essential (primary) hypertension (7) COPD (chronic obstructive pulmonary disease) Status: Chronic Qualifiers: Qualified Codes: J44.9 - Chronic obstructive pulmonary disease, unspecified (8) HLD (hyperlipidemia) Status: Chronic Qualifiers: Qualified Codes: E78.5 - Hyperlipidemia, unspecified JOSÉ MIGUEL CLEARY MD 10/19/23 1748: Supervisory-Addendum Brief Verification & Attestation Participated in pt care: history, MDM, physical Personally performed: exam, history, MDM, supervision of care Care discussed with: Medical Student Procedures: n/a I personally performed or re-performed the history, physical exam and treatment for the E/M. I discussed the case with the Medical Student, and concur with the Medical Student documentation of history, physical exam and treatment plan unless otherwise noted. Resumed home lasix as IV dose given chronic use, not necessarily for HTN, BP has remained controlled without oral meds for now. MELISSA BELL Oct 19, 2023 08:22 JOSÉ MIGUEL CLEARY MD Oct 19, 2023 17:48
[2023-10-19] MEDS: D5 1/2 NS 1,000 ML IV 1,000 ML IV SCH ×2 (08:48→15:34)
[2023-10-19] MEDS ORDERED: ENOXAPARIN 40 MG/0.4 ML SYRINGE SC SCH (09:00)
[2023-10-19] MEDS ORDERED: ENOXAPARIN 60 MG/0.6 ML SYRINGE SC SCH (09:00)
[2023-10-19] MEDS ORDERED: ALBU18HF2 INH (09:49)
[2023-10-19] MEDS ORDERED: EZET10TA49 PO (09:49)
[2023-10-19] MEDS ORDERED: DULO30CA49 PO (09:49)
[2023-10-19] MEDS ORDERED: FAMO40TA6 PO (09:49)
[2023-10-19] MEDS ORDERED: PANT40TA52 PO (09:49)
[2023-10-19] MEDS ORDERED: BUPR300T98 PO (09:49)
[2023-10-19] MEDS ORDERED: LUBI24CA8 PO (09:49)
[2023-10-19] MEDS ORDERED: DULA4.5P SQ (09:49)
[2023-10-19] MEDS ORDERED: BUDE10.27 INH (09:49)
[2023-10-19 11:35] VITALS: BP 125/75
[2023-10-19] MEDS ORDERED: FLUTICASONE NASAL SPRAY (120 SPRAYS) NS PRN (12:15)
[2023-10-19] MEDS ORDERED: [UNRECOGNIZED DRUG - OTHER] INH PRN (12:15)
[2023-10-19] MEDS ORDERED: FORMOTEROL FUMARATE INH PRN (12:15)
[2023-10-19] MEDS ORDERED: NON-FORMULARY MEDICATION 1 EA EA (Fluticasone Propionate (Flonase Allergy Relief) 1 SPRAY) NSEACH PRN (12:15)
[2023-10-19] MEDS ORDERED: BUDESONIDE INH PRN (12:15)
[2023-10-19] MEDS: PANTOPRAZOLE INJECTION 40 MG VIAL IV SCH (12:44)
[2023-10-19] MEDS: KETOROLAC INJ 30 MG/ML VIAL IVP PRN ×2 (12:48→18:58)
[2023-10-19 15:41] VITALS: BP 135/76
[2023-10-19] MEDS ORDERED: ENOXAPARIN 150 MG/ML SYRINGE SQ SCH (17:45)
--- NOTE | 2023-10-19 17:48 | Progress Note ---
Subjective Date Seen by a Provider: Oct 19, 2023 Time Seen by a Provider: 17:00 Subjective/Events-last exam still having crampy abd pain. no bowel fxn yet. no nausea/vomiting. no f ever/chills. Focused Exam Lactate Level 10/18/23 05:40: Lactic Acid Level 0.86 Objective Exam Vital Signs Date Time Temp Pulse Resp B/P (MAP) Pulse Ox O2 Delivery O2 Flow Rate FiO2 10/19/23 15:41 36.9 83 18 135/76 (95) 93 Room Air 10/19/23 11:35 36.8 85 17 125/75 (92) 93 Nasal Cannula 2.00 10/19/23 08:59 92 Room Air 2.00 10/19/23 07:47 37.0 88 17 122/70 (87) 92 Room Air 10/19/23 03:10 36.7 89 18 135/76 (95) 92 Room Air 10/18/23 23:23 37.0 85 18 165/87 (113) 96 Room Air 10/18/23 20:00 Room Air 10/18/23 19:49 36.4 90 18 138/75 (96) 97 Room Air 10/18/23 19:13 Nasal Cannula 2.00 I & O 10/19/23 06:59 Intake Total 1000 ml Output Total 2200 ml Balance -1200 ml Capillary Refill : Less Than 3 Seconds General Appearance: No Apparent Distress HEENT: PERRL/EOMI Neck: Full Range of Motion Respiratory: Decreased Breath Sounds, Rhonci, Stridor Cardiovascular: Regular Rate, Rhythm Gastrointestinal: distended, tenderness Extremity: Normal Capillary Refill Neurologic/Psychiatric: Alert, Oriented x3 Skin: Normal Color Lymphatic: No Adenopathy Results Lab Laboratory Tests 10/18/23 20:11: Glucometer 112H 10/18/23 23:27: Glucometer 85 10/19/23 04:31: Glucometer 116H 10/19/23 05:27: White Blood Count 8.6, Red Blood Count 4.78, Hemoglobin 13.4, Hematocrit 43, Mean Corpuscular Volume 91, Mean Corpuscular Hemoglobin 28, Mean Corpuscular Hemoglobin Concent 31L, Red Cell Distribution Width 16.9H, Platelet Count 205, Mean Platelet Volume 9.6, Sodium Level 140, Potassium Level 3.6, Chloride Level 106, Carbon Dioxide Level 25, Anion Gap 9, Blood Urea Nitrogen 9, Creatinine 0.74, Estimat Glomerular Filtration Rate 93, BUN/Creatinine Ratio 12, Glucose Level 145H, Calcium Level 8.4L, Corrected Calcium 9.0, Total Bilirubin 0.7, Aspartate Amino Transf (AST/SGOT) 16, Alanine Aminotransferase (ALT/SGPT) 21, Alkaline Phosphatase 128, Total Protein 6.0L, Albumin 3.2 10/19/23 11:18: Glucometer 128H Assessment/Plan Assessment/Plan Assess & Plan/Chief Complaint PSBO with large ventral abd incisional hernia with loss of domain. continue conservative management with ngt decompression and bowel rest. cont pain control. very poor surgical prognosis due to body habitus and non-ambulatory status. JONATHAN GRIFFITH MD Oct 19, 2023 17:48
[2023-10-19] MEDS: ENOXAPARIN 300 MG/3 ML MULTI-DOSE VIAL SQ SCH (19:00)
[2023-10-19 20:15] VITALS: BP 150/73
[2023-10-19] MEDS ORDERED: LUBIPROSTONE 24 MCG PO SCH (21:00)
[2023-10-19 23:31] VITALS: BP 126/71
[2023-10-20] MEDS: inSUlin ASPART 1 UNIT/0.01 ML (PER UNIT) SC SCH ×5 (00:07→23:57)
[2023-10-20] MEDS: D5 1/2 NS 1,000 ML IV 1,000 ML IV SCH ×4 (00:10→20:44)
[2023-10-20] MEDS: KETOROLAC INJ 30 MG/ML VIAL IVP PRN ×2 (01:58→08:39)
[2023-10-20 03:29] VITALS: BP 139/80
[2023-10-20] MEDS: morphine INJ 4 MG/ML 1 ML (VIAL/SYRINGE) IVP PRN ×5 (03:40→20:53)
[2023-10-20] MEDS: RT-ALBUTEROL SULF 2.5 MG/3 ML PRE-MIX VIAL INH PRN (04:16)
[2023-10-20 05:36] LABS: HEMATOCRIT 39 % (35-52); HEMOGLOBIN 11.8 g/dL (11.5-16.0); MEAN CORPUSCULAR HEMOGLOBIN 28 pg (25-34); MEAN CORPUSCULAR HGB CONC 30 g/dL (32-36); MEAN CORPUSCULAR VOLUME 92 fL (80-99); MEAN PLATELET VOLUME 9.9 fL (9.0-12.2); PLATELET COUNT 172 10^3/uL (130-400); WHITE BLOOD COUNT 6.4 10^3/uL (4.3-11.0)
[2023-10-20 05:41] LABS: ALBUMIN 2.9 GM/DL (3.2-4.5); POTASSIUM 3.4 MMOL/L (3.6-5.0)
[2023-10-20 05:42] LABS: CALCIUM 8.5 MG/DL (8.5-10.1)
[2023-10-20 05:43] LABS: TOTAL PROTEIN 5.5 GM/DL (6.4-8.2)
[2023-10-20 05:47] LABS: CREATININE SERUM 0.73 MG/DL (0.60-1.30)
[2023-10-20 05:50] LABS: MAGNESIUM 1.8 MG/DL (1.6-2.4)
[2023-10-20] MEDS: ENOXAPARIN 300 MG/3 ML MULTI-DOSE VIAL SQ SCH ×2 (06:27→17:44)
--- NOTE | 2023-10-20 07:18 | Progress Note ---
MELISSA BELL 10/20/23 0718: Subjective Subjective/Events-last exam Patient still in a lot of pain. Morphine takes the sharpness of the pain away and decreases the severity slightly. Not having nausea this morning, but she did have nausea last night. She has not had BM nor passed any gas yet. patient feels that her diffuse abdominal pain has been getting worse and now has more sever rebound tenderness. Patient is wanting to be transferred to . Review of Systems General: Chills, Night Sweats HEENT: Head Aches; No Visual Changes; Sore Throat Pulmonary: Dyspnea; No Cough Cardiovascular: No: Chest Pain, Palpitations Gastrointestinal: Nausea, Abdominal Pain (RLQ, RUQ, epigastric ) Genitourinary: No Dysuria Musculoskeletal: leg pain Focused Exam Lactate Level 10/18/23 05:40: Lactic Acid Level 0.86 Objective Exam Last Set of Vital Signs Vital Signs Date Time Temp Pulse Resp B/P (MAP) Pulse Ox O2 Delivery O2 Flow Rate FiO2 10/20/23 04:16 98 Nasal Cannula 2.00 10/20/23 03:29 36.3 93 20 139/80 (99) Capillary Refill : Less Than 3 Seconds I&O Intake and Output 10/20/23 00:00 Intake Total 1000 ml Output Total 1100 ml Balance -100 ml Intake Oral 0 ml IV Total 1000 ml Output Urine Total 500 ml Gastric Drainage Total 600 ml # Voids 1 General: Alert, Oriented X3 HEENT: PERRLA, EOMI Lungs: Clear to Auscultation, Normal Air Movement Heart: Regular Rate Abdomen: Normal Bowel Sounds, Other (diffuse tenderness with rebound tenderness) Extremities: Normal Pulses Results/Procedures Lab Laboratory Tests 10/19/23 11:18: Glucometer 128H 10/19/23 17:45: Glucometer 104 10/19/23 23:37: Glucometer 129H 10/20/23 04:54: White Blood Count 6.4, Red Blood Count 4.24, Hemoglobin 11.8, Hematocrit 39, Mean Corpuscular Volume 92, Mean Corpuscular Hemoglobin 28, Mean Corpuscular Hemoglobin Concent 30L, Red Cell Distribution Width 17.0H, Platelet Count 172, Mean Platelet Volume 9.9, Sodium Level 138, Potassium Level 3.4L, Chloride Level 106, Carbon Dioxide Level 25, Anion Gap 7, Blood Urea Nitrogen 9, Creatinine 0.73, Estimat Glomerular Filtration Rate 95, BUN/Creatinine Ratio 12, Glucose Level 138H, Calcium Level 8.5, Corrected Calcium 9.4, Magnesium Level 1.8, Total Bilirubin 1.0, Aspartate Amino Transf (AST/SGOT) 25, Alanine Aminotransferase (ALT/SGPT) 24, Alkaline Phosphatase 118, Total Protein 5.5L, Albumin 2.9L Radiology CT abdomen pelvis 10/18/23 IMPRESSION: 1. Findings concerning for small bowel obstruction. A definitive transition point is not identified, however, evaluation is limited secondary to multiple loops of bowel not visualized within the [id number] secondary to patient body habitus and large hernia. CXR 10/18/23 Atelectasis at the bases. No pneumothorax or effusions. Proper NG tube placement. Assessment/Plan Assessment/Plan (1) Small bowel obstruction Onset Date: ~ 10/18/2023 Status: Acute Assessment & Plan: CT abdomen pelvis: Findings concerning for small bowel obstruction Surgery consulted and appreciate conservative treatment Pain 07/24. Has not had BM nor passed gas Plan: Continue NPO status IV Morphine Q2hr for pain. NG tube to suction stomach contents Will call [facility] to see if they have availability and are willing to accept her Will appreciate recommendations per surgery to evaluate for worsening abdominal pain. (2) Nausea and vomiting Status: Acute Assessment & Plan: Continue IV Zofran PRN Start IV pantoprazole Qualifiers: Qualified Codes: R11.2 - Nausea with vomiting, unspecified (3) Afib Status: Chronic Assessment & Plan: Increase Lovenox for therapeutic anticoagulation for Afib and DVT prophylaxis. Qualifiers: Qualified Codes: I48.91 - Unspecified atrial fibrillation (4) Headache Status: Acute Assessment & Plan: Patient has history of Migraines and has had significant headaches since admission Start patient on IV toradol Qualifiers: (5) Diabetes mellitus Status: Chronic Assessment & Plan: Discontinue home medications and start insulin on sliding scale Qualifiers: (6) HTN (hypertension) Status: Chronic Assessment & Plan: Start patient on IV Lasix Qualifiers: Qualified Codes: I10 - Essential (primary) hypertension (7) COPD (chronic obstructive pulmonary disease) Status: Chronic Qualifiers: Qualified Codes: J44.9 - Chronic obstructive pulmonary disease, unspecified (8) HLD (hyperlipidemia) Status: Chronic Qualifiers: Qualified Codes: E78.5 - Hyperlipidemia, unspecified MADIHA,JOSÉ MIGUEL N MD 10/20/232031: Supervisory-Addendum Brief Verification & Attestation Participated in pt care: history, MDM, physical Personally performed: exam, history, MDM, supervision of care Care discussed with: Medical Student Procedures: n/a I personally performed or re-performed the history, physical exam and treatment for the E/M. I discussed the case with the Medical Student, and concur with the Medical Student documentation of history, physical exam and treatment plan unless otherwise noted. MELISSA BELL Oct 20, 2023 07:18 JOSÉ MIGUEL CLEARY MD Oct 20, 2023 20:32
[2023-10-20 07:40] VITALS: BP 130/80
[2023-10-20] MEDS: FLUTICASONE/VILANTEROL 100/25 MCG (14 DOSES) IH PRN (07:42)
[2023-10-20] MEDS: POTASSIUM CL 10MEQ/50ML IVPB 50 ML IV SCH ×4 (08:39→12:31)
[2023-10-20] MEDS: PANTOPRAZOLE INJECTION 40 MG VIAL IV SCH (08:39)
[2023-10-20] MEDS: FUROSEMIDE INJECTION 40 MG/4 ML VIAL IVP SCH (08:40)
[2023-10-20 12:43] VITALS: BP 136/68
[2023-10-20 16:15] VITALS: BP 133/59
--- NOTE | 2023-10-20 17:59 | Progress Note ---
Subjective Date Seen by a Provider: Oct 20, 2023 Time Seen by a Provider: 18:00 Subjective/Events-last exam still no significant BM at this time. decrease ngt output. still some crampy abd pain however controlled with meds. Focused Exam Lactate Level 10/18/23 05:40: Lactic Acid Level 0.86 Objective Exam Vital Signs Date Time Temp Pulse Resp B/P (MAP) Pulse Ox O2 Delivery O2 Flow Rate FiO2 10/20/23 16:15 36.8 92 20 133/59 (83) 94 OxyMask 2.00 10/20/23 12:43 36.7 84 20 136/68 (90) 94 Nasal Cannula 2.00 10/20/23 08:47 Room Air 10/20/23 07:48 OxyMask 2.00 10/20/23 07:42 97 Nasal Cannula 2.00 10/20/23 07:40 36.8 77 20 130/80 (97) 97 Nasal Cannula 2.00 10/20/23 04:16 98 Nasal Cannula 2.00 10/20/23 03:29 36.3 93 20 139/80 (99) 97 Nasal Cannula 2.00 10/19/23 23:31 35.9 79 18 126/71 (89) 98 Nasal Cannula 2.00 10/19/23 21:20 85 Nasal Cannula 2.00 10/19/23 20:15 36.9 80 17 150/73 (98) 95 Room Air 10/19/23 20:00 Room Air I & O 10/20/23 06:59 Intake Total 1000 ml Output Total 600 ml Balance 400 ml Capillary Refill : Less Than 3 Seconds General Appearance: No Apparent Distress HEENT: PERRL/EOMI Neck: Full Range of Motion Respiratory: Decreased Breath Sounds, Rhonci, Wheezing Cardiovascular: Regular Rate, Rhythm Gastrointestinal: soft, distended Extremity: Normal Capillary Refill Neurologic/Psychiatric: Alert, Oriented x3 Skin: Normal Color Lymphatic: No Adenopathy Results Lab Laboratory Tests 10/19/23 23:37: Glucometer 129H 10/20/23 04:54: White Blood Count 6.4, Red Blood Count 4.24, Hemoglobin 11.8, Hematocrit 39, Mean Corpuscular Volume 92, Mean Corpuscular Hemoglobin 28, Mean Corpuscular Hemoglobin Concent 30L, Red Cell Distribution Width 17.0H, Platelet Count 172, Mean Platelet Volume 9.9, Sodium Level 138, Potassium Level 3.4L, Chloride Level 106, Carbon Dioxide Level 25, Anion Gap 7, Blood Urea Nitrogen 9, Creatinine 0.73, Estimat Glomerular Filtration Rate 95, BUN/Creatinine Ratio 12, Glucose Level 138H, Calcium Level 8.5, Corrected Calcium 9.4, Magnesium Level 1.8, Total Bilirubin 1.0, Aspartate Amino Transf (AST/SGOT) 25, Alanine Aminotransferase (ALT/SGPT) 24, Alkaline Phosphatase 118, Total Protein 5.5L, Albumin 2.9L 10/20/23 12:40: Glucometer 87 10/20/23 17:46: Glucometer 102 Assessment/Plan Assessment/Plan Assess & Plan/Chief Complaint PSBO with large ventral abd incisional hernia with loss of domain. continue conservative management with ngt decompression and bowel rest. will get axr in am. if no bowel fxn within 24-48 will get gastrograffin SBFT. cont pain control. very poor surgical prognosis due to body habitus and non-ambulatory status. JONATHAN GRIFFITH MD Oct 20, 2023 17:59
[2023-10-20 20:07] VITALS: BP 127/57
[2023-10-20 23:54] VITALS: BP 119/58
[2023-10-21 03:57] VITALS: BP 117/58
[2023-10-21] MEDS: inSUlin ASPART 1 UNIT/0.01 ML (PER UNIT) SC SCH ×3 (05:07→17:46)
[2023-10-21] MEDS: D5 1/2 NS 1,000 ML IV 1,000 ML IV SCH ×2 (05:08→20:08)
[2023-10-21] MEDS: ENOXAPARIN 300 MG/3 ML MULTI-DOSE VIAL SQ SCH ×2 (05:08→18:12)
[2023-10-21] MEDS: morphine INJ 4 MG/ML 1 ML (VIAL/SYRINGE) IVP PRN ×5 (05:11→22:18)
[2023-10-21 06:38] LABS: HEMATOCRIT 38 % (35-52); HEMOGLOBIN 11.8 g/dL (11.5-16.0); MEAN CORPUSCULAR HEMOGLOBIN 28 pg (25-34); MEAN CORPUSCULAR HGB CONC 31 g/dL (32-36); MEAN CORPUSCULAR VOLUME 90 fL (80-99); PLATELET COUNT 173 10^3/uL (130-400); WHITE BLOOD COUNT 7.7 10^3/uL (4.3-11.0)
[2023-10-21 06:52] LABS: ALBUMIN 2.9 GM/DL (3.2-4.5); CREATININE SERUM 0.66 MG/DL (0.60-1.30); POTASSIUM 3.3 MMOL/L (3.6-5.0); TOTAL PROTEIN 5.4 GM/DL (6.4-8.2)
--- NOTE | 2023-10-21 06:56 | Progress Note ---
BELLMELISSA 10/21/23 0656: Subjective Subjective/Events-last exam Patient is feeling sore this morning. Pain this morning is not getting better and is a 9/10. Patient is still having some nausea. She has not passed any gas nor BM. She had a lot of secretions in her throat that caused her to almost choke last night. Patient also had palpitations last night that lasted for a few minutes then subsided. Patient continues to ask for transfer to . Review of Systems General: No Chills; Night Sweats HEENT: Head Aches; No Visual Changes, No Eye Pain, No Ear Pain; Sore Throat (since placement of NG tube) Pulmonary: Dyspnea, Cough Cardiovascular: Palpitations (last night. lasted for a couple minutes ); No: Chest Pain Gastrointestinal: Nausea; No: Vomiting Genitourinary: No Dysuria Musculoskeletal: back pain, leg pain Objective Exam Last Set of Vital Signs Vital Signs Date Time Temp Pulse Resp B/P (MAP) Pulse Ox O2 Delivery O2 Flow Rate FiO2 10/21/23 03:57 36.9 93 20 117/58 (77) 94 OxyMask 2.00 Capillary Refill : Less Than 3 Seconds I&O Intake and Output 10/21/23 00:00 Intake Total 410 ml Output Total 2950 ml Balance -2540 ml Intake Oral 360 ml IV Total 50 ml Output Urine Total 1150 ml Gastric Drainage Total 1800 ml # Voids 1 General: Alert, Oriented X3 HEENT: PERRLA, EOMI Lungs: Clear to Auscultation, Normal Air Movement Heart: Regular Rate Abdomen: Other (warm right abdomen. tenderness diffusly with rebound. guarding. increased distention ) Extremities: No Edema, Normal Pulses Results/Procedures Lab Laboratory Tests 10/20/23 12:40: Glucometer 87 10/20/23 17:46: Glucometer 102 10/20/23 23:47: Glucometer 160H 10/21/23 05:07: Glucometer 133H 10/21/23 05:55: White Blood Count 7.7, Red Blood Count 4.20, Hemoglobin 11.8, Hematocrit 38, Mean Corpuscular Volume 90, Mean Corpuscular Hemoglobin 28, Mean Corpuscular Hemoglobin Concent 31L, Red Cell Distribution Width 16.8H, Platelet Count 173, Mean Platelet Volume 10.0, Sodium Level 138, Potassium Level 3.3L, Chloride Level 106, Carbon Dioxide Level 23, Anion Gap 9, Blood Urea Nitrogen 8, Creatinine 0.66, Estimat Glomerular Filtration Rate 101, BUN/Creatinine Ratio 12, Glucose Level 124H, Calcium Level 8.0L, Corrected Calcium 8.9, Total Bilirubin 1.0, Aspartate Amino Transf (AST/SGOT) 18, Alanine Aminotransferase (ALT/SGPT) 23, Alkaline Phosphatase 117, Total Protein 5.4L, Albumin 2.9L Radiology CT abdomen pelvis 10/18/23 IMPRESSION: 1. Findings concerning for small bowel obstruction. A definitive transition point is not identified, however, evaluation is limited secondary to multiple loops of bowel not visualized within the [id number] secondary to patient body habitus and large hernia. CXR 10/18/23 Atelectasis at the bases. No pneumothorax or effusions. Proper NG tube placement. Assessment/Plan Assessment/Plan (1) Small bowel obstruction Onset Date: ~ 10/18/2023 Status: Acute Assessment & Plan: CT abdomen pelvis: Findings concerning for small bowel obstruction Surgery consulted and appreciate conservative treatment Has not had BM nor passed gas Plan: Continue NPO status IV Morphine Q2hr for pain. NG for stomach decompression Abdominal Xray today Per surgery recommendations, will get gastrografin SBFT if patients bowel symptoms do not improve. (2) Nausea and vomiting Status: Acute Assessment & Plan: Continue IV Zofran PRN Start IV pantoprazole Qualifiers: Qualified Codes: R11.2 - Nausea with vomiting, unspecified (3) Afib Status: Chronic Assessment & Plan: Continue therapeutic dosing of Lovenox for Afib. Qualifiers: Qualified Codes: I48.91 - Unspecified atrial fibrillation (4) Headache Status: Acute Assessment & Plan: Patient has history of Migraines and has had significant headaches since admission Start patient on IV toradol Qualifiers: (5) Diabetes mellitus Status: Chronic Assessment & Plan: Discontinue home medications and start insulin on sliding scale Qualifiers: (6) HTN (hypertension) Status: Chronic Assessment & Plan: Start patient on IV Lasix Qualifiers: Qualified Codes: I10 - Essential (primary) hypertension (7) COPD (chronic obstructive pulmonary disease) Status: Chronic Assessment & Plan: Patient does not require oxygen at home. Qualifiers: Qualified Codes: J44.9 - Chronic obstructive pulmonary disease, unspecified (8) HLD (hyperlipidemia) Status: Chronic Qualifiers: Qualified Codes: E78.5 - Hyperlipidemia, unspecified ALMA MOYA MD 10/21/23 1653: Supervisory-Addendum Brief Verification & Attestation Participated in pt care: history, MDM, physical Personally performed: exam, history, MDM, supervision of care Care discussed with: Medical Student Procedures: n/a I personally performed or re-performed the history, physical exam and treatment for the E/M. I discussed the case with the Medical Student, and concur with the Medical Student documentation of history, physical exam and treatment plan unless otherwise noted. MELISSA BELL Oct 21, 2023 06:56 ALMA MOYA MD Oct 21, 2023 16:53
[2023-10-21] MEDS: FLUTICASONE/VILANTEROL 100/25 MCG (14 DOSES) IH PRN (07:44)
[2023-10-21 08:28] VITALS: BP 133/64
[2023-10-21] MEDS: FUROSEMIDE INJECTION 40 MG/4 ML VIAL IVP SCH (08:58)
[2023-10-21] MEDS: PANTOPRAZOLE INJECTION 40 MG VIAL IV SCH (08:58)
[2023-10-21 12:15] VITALS: BP 151/70
--- NOTE | 2023-10-21 12:55 | Progress Note ---
Subjective Date Seen by a Provider: Oct 21, 2023 Time Seen by a Provider: 12:00 Subjective/Events-last exam patient resting comfortably. did not awaken. staff states pt asks for pain meds continuously. no flatus or BM as of yet. VSS, aftebrile and normal WBC. Objective Exam Vital Signs Date Time Temp Pulse Resp B/P (MAP) Pulse Ox O2 Delivery O2 Flow Rate FiO2 10/21/23 08:28 37.7 80 20 133/64 (87) 96 OxyMask 2.00 10/21/23 08:15 Room Air 10/21/23 07:44 95 OxyMask 2.00 10/21/23 03:57 36.9 93 20 117/58 (77) 94 OxyMask 2.00 10/20/23 23:54 36.6 89 20 119/58 (78) 94 OxyMask 2.00 10/20/23 20:07 36.9 87 20 127/57 (80) 94 OxyMask 2.00 10/20/23 20:00 Room Air 10/20/23 16:15 36.8 92 20 133/59 (83) 94 OxyMask 2.00 I & O 10/21/23 06:59 Intake Total 410 ml Output Total 3000 ml Balance -2590 ml Capillary Refill : Less Than 3 Seconds General Appearance: No Apparent Distress HEENT: PERRL/EOMI Neck: Full Range of Motion Respiratory: Decreased Breath Sounds, Rhonci, Wheezing Cardiovascular: Regular Rate, Rhythm Gastrointestinal: distended Extremity: Normal Capillary Refill Neurologic/Psychiatric: Other (resting without any apparent distress) Skin: Normal Color Lymphatic: No Adenopathy Results Lab Laboratory Tests 10/20/23 17:46: Glucometer 102 10/20/23 23:47: Glucometer 160H 10/21/23 05:07: Glucometer 133H 10/21/23 05:55: White Blood Count 7.7, Red Blood Count 4.20, Hemoglobin 11.8, Hematocrit 38, Mean Corpuscular Volume 90, Mean Corpuscular Hemoglobin 28, Mean Corpuscular Hemoglobin Concent 31L, Red Cell Distribution Width 16.8H, Platelet Count 173, Mean Platelet Volume 10.0, Sodium Level 138, Potassium Level 3.3L, Chloride Level 106, Carbon Dioxide Level 23, Anion Gap 9, Blood Urea Nitrogen 8, Creatinine 0.66, Estimat Glomerular Filtration Rate 101, BUN/Creatinine Ratio 12, Glucose Level 124H, Calcium Level 8.0L, Corrected Calcium 8.9, Total Bilirubin 1.0, Aspartate Amino Transf (AST/SGOT) 18, Alanine Aminotransferase (ALT/SGPT) 23, Alkaline Phosphatase 117, Total Protein 5.4L, Albumin 2.9L 10/21/23 12:16: Glucometer 103 Assessment/Plan Assessment/Plan Assess & Plan/Chief Complaint PSBO with large ventral abd incisional hernia with loss of domain. continue conservative management with ngt decompression and bowel rest. if no bowel fxn within 24-48 will get gastrograffin SBFT. very poor surgical prognosis due to body habitus and non-ambulatory status. staff states patient requesting transfer to which would be more appropriate in my opinion for her risks for surgery extremely high for mortality. JONATHAN GRIFFITH MD Oct 21, 2023 12:55
[2023-10-21 16:31] VITALS: BP 131/60
--- NOTE | 2023-10-21 16:59 | Diagnostic Imaging Report ---
INDICATION: Abdominal distention. TECHNIQUE: Six images were obtained. FINDINGS: The nasogastric tube has its tip just below the diaphragm in the stomach. There are some dilated loops of small bowel in the right lower quadrant. There is no definite free air. There are degenerative changes in the spine. IMPRESSION: Dilated loops of small bowel in the right lower quadrant, suspect for at least an ileus or possibly a partial small bowel obstruction. Recommend clinical correlation and, if warranted, followup with small bowel series. Dictated by: Dictated on workstation # [id number]
[2023-10-21 19:43] VITALS: BP 140/65
[2023-10-21] MEDS: KETOROLAC INJ 30 MG/ML VIAL IVP PRN (19:48)
[2023-10-21] MEDS: ONDANSETRON INJECTION 4 MG/2 ML (SDV) IVP PRN (22:14)
[2023-10-22 00:18] VITALS: BP 124/61
[2023-10-22] MEDS: inSUlin ASPART 1 UNIT/0.01 ML (PER UNIT) SC SCH ×5 (00:25→23:17)
[2023-10-22] MEDS: D5 1/2 NS 1,000 ML IV 1,000 ML IV SCH ×4 (00:26→23:18)
[2023-10-22] MEDS: ONDANSETRON INJECTION 4 MG/2 ML (SDV) IVP PRN (03:42)
[2023-10-22 04:01] VITALS: BP 132/68
[2023-10-22] MEDS: morphine INJ 4 MG/ML 1 ML (VIAL/SYRINGE) IVP PRN ×5 (04:36→21:44)
[2023-10-22 04:40] LABS: HEMATOCRIT 40 % (35-52); HEMOGLOBIN 12.5 g/dL (11.5-16.0); MEAN CORPUSCULAR HEMOGLOBIN 28 pg (25-34); MEAN CORPUSCULAR HGB CONC 31 g/dL (32-36); MEAN CORPUSCULAR VOLUME 91 fL (80-99); MEAN PLATELET VOLUME 10.3 fL (9.0-12.2); PLATELET COUNT 138 10^3/uL (130-400); WHITE BLOOD COUNT 7.3 10^3/uL (4.3-11.0)
[2023-10-22] MEDS: ENOXAPARIN 300 MG/3 ML MULTI-DOSE VIAL SQ SCH ×2 (06:06→18:23)
[2023-10-22 07:17] VITALS: BP 125/72
[2023-10-22] MEDS: FLUTICASONE/VILANTEROL 100/25 MCG (14 DOSES) IH SCH (07:33)
[2023-10-22] MEDS: RT-ALBUTEROL SULF 2.5 MG/3 ML PRE-MIX VIAL INH PRN ×2 (07:36→23:46)
[2023-10-22] MEDS: PANTOPRAZOLE INJECTION 40 MG VIAL IV SCH (08:27)
[2023-10-22] MEDS: FUROSEMIDE INJECTION 40 MG/4 ML VIAL IVP SCH (08:28)
--- NOTE | 2023-10-22 10:09 | Progress Note ---
GET TONG MD,RESIDENT 10/22/23 1009: Subjective Subjective/Events-last exam Pt reports that she still has abdominal pain today. Says she passed flatus earlier but no bowel movements yet. She states that she would like to try and get up and to the chair today. We discussed that movement would help move her bowels. Objective Exam Vital Signs Vital Signs Date Time Temp Pulse Resp B/P (MAP) Pulse Ox O2 Delivery O2 Flow Rate FiO2 10/22/23 08:00 OxyMask 2.00 10/22/23 07:36 96 10/22/23 07:17 35.8 75 17 125/72 (89) Capillary Refill : Less Than 3 Seconds General Appearance: No Apparent Distress Respiratory: Chest Non Tender, Normal Breath Sounds, No Accessory Muscle Use, No Respiratory Distress Cardiovascular: Regular Rate, Rhythm Gastrointestinal: Soft, Tenderness (RLQ) Neurologic/Psychiatric: Alert, Oriented x3 Results/Procedures Lab Laboratory Tests 10/22/23 04:15 10/22/23 12:10 Patient resulted labs reviewed. Assessment/Plan Assessment and Plan Assess & Plan/Chief Complaint (1) Small bowel obstruction Onset Date: ~ 10/18/2023 Status: Acute Assessment & Plan: CT abdomen pelvis: Findings concerning for small bowel obstruction Surgery consulted and appreciate conservative treatment Has not had BM nor passed gas Plan: Continue NPO status IV Morphine Q2hr for pain. NG for stomach decompression Abdominal Xray demonstrates dilated loops of small bowel representing SBO vs ileus. Per surgery recommendations, will get gastrografin SBFT if patients bowel symptoms do not improve. No surgical intervention at this time PT/OT for mobility, help with getting Pt out of bed to chair (2) Nausea and vomiting Status: Acute Assessment & Plan: Continue IV Zofran PRN Start IV pantoprazole Qualifiers: Qualified Codes: R11.2 - Nausea with vomiting, unspecified (3) Afib Status: Chronic Assessment & Plan: Continue therapeutic dosing of Lovenox for Afib. Qualifiers: Qualified Codes: I48.91 - Unspecified atrial fibrillation (4) Headache Status: Acute Assessment & Plan: Patient has history of Migraines and has had significant headaches since admission Start patient on IV toradol Qualifiers: (5) Diabetes mellitus Status: Chronic Assessment & Plan: Discontinue home medications and start insulin on sliding scale Qualifiers: (6) HTN (hypertension) Status: Chronic Assessment & Plan: Start patient on IV Lasix Qualifiers: Qualified Codes: I10 - Essential (primary) hypertension (7) COPD (chronic obstructive pulmonary disease) Status: Chronic Assessment & Plan: Patient does not require oxygen at home. Qualifiers: Qualified Codes: J44.9 - Chronic obstructive pulmonary disease, unspecified (8) HLD (hyperlipidemia) Status: Chronic Qualifiers: Qualified Codes: E78.5 - Hyperlipidemia, unspecified VALERI ARROYO DO 10/23/23 0658: Subjective HPI/CC On Admission Date Seen by Provider: Oct 22, 2023 Time Seen by Provider: 11:00 Subjective/Events-last exam Patient doing about the same BMI 66 Patient still sore Potassium will be supplemented Objective Exam General Appearance: No Apparent Distress, WD/WN, Chronically ill Assessment/Plan Assessment and Plan Assess & Plan/Chief Complaint Supportive care Monitor closely Replace potassium GET TONG MD,RESIDENT Oct 22, 2023 10:09 VALERI ARROYO DO Oct 23, 2023 06:58
--- NOTE | 2023-10-22 10:13 | Progress Note ---
Subjective Date Seen by a Provider: Oct 22, 2023 Time Seen by a Provider: 09:45 Subjective/Events-last exam Patient seen with Dr. Terrell. Patient reports still having pain of the right side abdomen. Reports episodes of nausea and vomiting. Reports 2 episodes of flatus yesterday but none since. Patient does report that her throat is sore and irritated. Objective Exam Vital Signs Date Time Temp Pulse Resp B/P (MAP) Pulse Ox O2 Delivery O2 Flow Rate FiO2 10/22/23 08:00 OxyMask 2.00 10/22/23 07:36 96 OxyMask 2.00 10/22/23 07:17 35.8 75 17 125/72 (89) 98 OxyMask 2.00 10/22/23 04:01 36.5 81 20 132/68 (89) 99 OxyMask 2.00 10/22/23 00:18 36.1 76 20 124/61 (82) 96 Room Air 10/21/23 19:50 OxyMask 2.00 10/21/23 19:43 37.0 91 20 140/65 (90) 97 OxyMask 2.00 10/21/23 19:01 96 OxyMask 2.00 10/21/23 16:31 37.4 88 16 131/60 (83) 93 Room Air 10/21/23 12:15 37.7 80 18 151/70 (97) 94 Room Air I & O 10/22/23 06:59 Intake Total 2000 ml Output Total 2825 ml Balance -825 ml Capillary Refill : Less Than 3 Seconds General Appearance: No Apparent Distress, WD/WN, Obese Neck: Normal Inspection, Supple Respiratory: No Accessory Muscle Use, No Respiratory Distress Gastrointestinal: soft, distended (Large ventral abdominal incisional hernia with bowel through herination, painful to palpation) Neurologic/Psychiatric: Alert, Oriented x3 Skin: Normal Color, Warm/Dry Results Lab Laboratory Tests 10/21/23 12:16: Glucometer 103 10/21/23 17:35: Glucometer 108 10/22/23 00:17: Glucometer 125H 10/22/23 04:15: White Blood Count 7.3, Red Blood Count 4.42, Hemoglobin 12.5, Hematocrit 40, Mean Corpuscular Volume 91, Mean Corpuscular Hemoglobin 28, Mean Corpuscular Hemoglobin Concent 31L, Red Cell Distribution Width 16.7H, Platelet Count 138, Mean Platelet Volume 10.3 10/22/23 04:29: Glucometer 105 Assessment/Plan Assessment/Plan Assess & Plan/Chief Complaint PSBO with large ventral abd incisional hernia with loss of domain. continue conservative management with ngt decompression and bowel rest. if no bowel fxn within 24-48 will get gastrograffin SBFT. very poor surgical prognosis due to body habitus and non-ambulatory status. staff states patient requesting transfer to which would be more appropriate in my opinion for her risks for surgery extremely high for mortality. VSS WBC 7.3 Will add throat spray as needed for throat discomfort RUPA CARRANZA [employer] Oct 22, 2023 10:13
--- NOTE | 2023-10-22 12:15 | Physical Therapy Evaluation ---
PT Evaluation-General Medical Diagnosis Admission Date Oct 19, 2023 at 13:47 Medical Diagnosis: SBO Onset Date: Oct 21, 2023 Therapy Diagnosis Therapy Diagnosis: Gait deficit, strength deficit Height/Weight Height (Feet): 5 Height (Inches): 4.00 Weight (Pounds): 396 Weight (Ounces): 0.0 Precautions Precautions/Isolations: Fall Prevention, Standard Precautions, Pressure Ulcer Weight Bear Status Right Lower Extremity: Right Full Weight Bearing Left Lower Extremity: Left Full Weight Bearing Referral Physician: Dr. Ponce Reason for Referral: Evaluation/Treatment Medical History Pertinent Medical History: Atrial Fib, COPD, DM, HTN, IA, Smoking Social History Home: Apartment Current Living Status: Alone Entry Into Home: Level Entry Prior Prior Level of Function SCALE: Activities may be completed with or without assistive devices. 7-Eyosrpujgn-ftripbf completes the activity by him/herself with no assistance from a helper. 5-Set-up or Clean-up Assistance-helper sets up or cleans up; patient completes activity. [place] assists only prior to or following the activity. 4-Supervision or Touching Assistance-helper provides verbal cues and/or touching/steadying and/or contact guard assistance as patient completes activity. Assistance may be provided throughout the activity or intermittently. 3-Partial/Moderate Assistance-helper does LESS THAN HALF the effort. [place] lifts, holds or supports trunk or limbs, but provides less than half the effort. 2-Substantial/Maximal Assistance-helper does MORE THAN HALF the effort. [place] lifts or holds trunk or limbs and provides more than half the effort. 4-Dtgptsvdo-qyvaqt does ALL the effort. Patient does none of the effort to complete the activity. Or, the assistance of 2 or more helpers is required for the patient to complete the activity. If activity was not attempted, code reason: 7-Patient Refused. 9-Not Applicable-not attempted and the patient did not perform the activity before the current illness, exacerbation or injury. 10-Not Attempted due to Environmental Limitations-(lack of equipment, weather restraints, etc.). 88-Not Attempted due to Medical Conditions or Safety Concerns. Bed Mobility: 4 Transfers (B,C,W/C): 1 Gait: 3 Indoor Mobility (Ambulation): Needed Some Help Prior Devices Use: Manual wheelchair, Mechanical lift, Walker Patient reports at times she is able to get herself to the side of the bed and uses the FWW to "take 6-7 steps" to the chair. Other times she requires her caregiver to use the cheo lift to transfer her to the chair. Patient also reports she has used the cheo by herself to get to the chair. She reports she lifts herself up with the cheo to clear the bed, turns so that her feet are closer to the floor and then lowers the cheo lift so that her feet can hit the floor. At that point she will use her feet to "walk" the cheo to the chair, then she raises the cheo again so her bottom can clear the seat and then lowers the cheo so that she can sit. Patient was educated on how dangerous this is and advised not to perform this again. PT Evaluation-Current Subjective Patient lying supine in bed upon PT arrival, agreeable to treatment. Patient rates pain at 9/10 in abdomen. Objective Patient Orientation: Person, Place, Time, Situation Attachments: Law Catheter, IV ROM/Strength ROM Lower Extremities Limited all planes due to adipose tissue and disuse. Strength Lower Extremities Unable to accurately assess due to adipose tissue and disuse, however demonstrates 3-/5 throughout during mobility. Sensory Vision: Functional Hearing: Functional Sensation Right Lower Extremit: Intact Sensation Left Lower Extremity: Intact Transfers Roll Left to Right (QC): 3 Sit to Lying (QC): 3 Lying to Sitting/Side of Bed(Q: 3 Sit to Stand (QC): 2 Chair/Vsi-qk-Snpto Xfer(QC): 2 Gait Does the Patient Walk?: No and Walking Goal IS indicated Mode of Locomotion: Both Anticipated Mode of Locomotion: Both Distance: 3 feet Gait Assistive Device: FWW Comments/Gait Description mod to max A Balance Sitting Static: Poor Sitting Dynamic: Poor Standing Static: Poor Standing Dynamic: Poor Assessment/Needs Patient performs all bed mobility and transfers with mod to max A. Patient ambulates to the chair with FWW, with max A. Patient in chair post treatment with all needs met, nursing notified, call light in hand and caregiver in the room. Patient reports at times she is able to get herself to the side of the bed and uses the FWW to "take 6-7 steps" to the chair. Other times she requires her caregiver to use the cheo lift to transfer her to the chair. Patient also reports she has used the cheo by herself to get to the chair. She reports she lifts herself up with the cheo to clear the bed, turns so that her feet are closer to the floor and then lowers the cheo lift so that her feet can hit the floor. At that point she will use her feet to "walk" the cheo to the chair, then she raises the cheo again so her bottom can clear the seat and then lowers the cheo so that she can sit. Patient was educated on how dangerous this is and advised not to perform this again. Rehab Potential: Guarded PT Office Services Manager Goals Alf Goals PT Alf Goals Time Frame: Nov 12, 2023 Roll Left & Right (QC): 4 Sit to Lying (QC): 4 Lying-Sitting on Side/Bed(QC): 4 Sit to Stand (QC): 4 Chair/Jhm-gm-Didau Xfer(QC): 4 Does the Patient Walk: No and Walking Goal IS indicated Walk 10 feet (QC): 2 PT Plan Problem List Problem List: Activity Tolerance, Functional Strength, Safety, Balance, Gait, Transfer, Bed Mobility, ROM Treatment/Plan Treatment Plan: Continue Plan of Care Treatment Plan: Bed Mobility, Education, Functional Activity Raquel, Functional Strength, Group Therapy, Gait, Safety, Therapeutic Exercise, Transfers Treatment Duration: Nov 12, 2023 Frequency: 5 times per week Estimated Hrs Per Day: .25 hour per day Patient and/or Family Agrees t: Yes Safety Risks/Education Patient Education: Gait Training, Transfer Techniques Teaching Recipient: Patient Teaching Methods: Demonstration, Discussion Response to Teaching: Reinforcement Needed Time Time In: 1035 Time Out: 1105 DATE: Oct 22, 2023 Total Billed Treatment Time: 30 Total Billed Treatment Visit, LAYA KIM JOHN A PT Oct 22, 2023 12:15
[2023-10-22 12:26] LABS: ALBUMIN 3.2 GM/DL (3.2-4.5)
[2023-10-22 12:27] LABS: POTASSIUM 2.9 MMOL/L (3.6-5.0)
[2023-10-22 12:28] LABS: CALCIUM 8.4 MG/DL (8.5-10.1)
[2023-10-22 12:29] LABS: TOTAL PROTEIN 6.2 GM/DL (6.4-8.2)
[2023-10-22 12:31] LABS: BILIRUBIN,TOTAL 1.2 MG/DL (0.1-1.0)
[2023-10-22 12:33] LABS: CREATININE SERUM 0.67 MG/DL (0.60-1.30)
[2023-10-22] MEDS ORDERED: POTASSIUM CL 10MEQ/50ML IVPB 50 ML IV SCH (13:00)
[2023-10-22] MEDS ORDERED: POTASSIUM CHLORIDE 20 MEQ TABLET PO ONE (13:00)
[2023-10-22] MEDS: POTASSIUM CL 10MEQ/50ML IVPB 50 ML IV SCH ×4 (13:52→17:24)
[2023-10-22] MEDS: KETOROLAC INJ 30 MG/ML VIAL IVP PRN ×2 (13:55→23:15)
[2023-10-22] MEDS: PHENOL THROAT SPRAY 177 ML LIQUID MC PRN (15:06)
[2023-10-22 16:12] VITALS: BP 134/70
[2023-10-22 23:12] VITALS: BP 114/74
[2023-10-23 05:27] LABS: HEMATOCRIT 38 % (35-52); HEMOGLOBIN 11.8 g/dL (11.5-16.0); MEAN CORPUSCULAR HEMOGLOBIN 28 pg (25-34); MEAN CORPUSCULAR HGB CONC 32 g/dL (32-36); MEAN CORPUSCULAR VOLUME 90 fL (80-99); MEAN PLATELET VOLUME 9.7 fL (9.0-12.2); PLATELET COUNT 182 10^3/uL (130-400); WHITE BLOOD COUNT 6.1 10^3/uL (4.3-11.0)
[2023-10-23] MEDS: inSUlin ASPART 1 UNIT/0.01 ML (PER UNIT) SC SCH ×4 (05:32→23:08)
[2023-10-23] MEDS: ENOXAPARIN 300 MG/3 ML MULTI-DOSE VIAL SQ SCH ×2 (05:32→17:00)
[2023-10-23] MEDS: morphine INJ 4 MG/ML 1 ML (VIAL/SYRINGE) IVP PRN ×5 (05:37→22:55)
[2023-10-23 05:43] LABS: ALBUMIN 2.8 GM/DL (3.2-4.5); BILIRUBIN,TOTAL 0.9 MG/DL (0.1-1.0); CREATININE SERUM 0.66 MG/DL (0.60-1.30); POTASSIUM 3.1 MMOL/L (3.6-5.0); TOTAL PROTEIN 5.2 GM/DL (6.4-8.2)
[2023-10-23] MEDS: FLUTICASONE/VILANTEROL 100/25 MCG (14 DOSES) IH SCH (07:21)
[2023-10-23 08:01] VITALS: BP 119/59
[2023-10-23] MEDS: D5 1/2 NS 1,000 ML IV 1,000 ML IV SCH ×3 (08:02→22:56)
[2023-10-23] MEDS: KETOROLAC INJ 30 MG/ML VIAL IVP PRN (08:03)
[2023-10-23] MEDS: PANTOPRAZOLE INJECTION 40 MG VIAL IV SCH (08:03)
[2023-10-23] MEDS: FUROSEMIDE INJECTION 40 MG/4 ML VIAL IVP SCH (08:03)
--- NOTE | 2023-10-23 09:25 | Progress Note ---
GET TONG MD,RESIDENT 10/23/23 0925: Subjective Subjective/Events-last exam Pt resting in bed this morning. Reports feeling nauseous when NGT is clamped. States she had flatus last night and this morning, however no bm yet. Objective Exam Vital Signs Vital Signs Date Time Temp Pulse Resp B/P (MAP) Pulse Ox O2 Delivery O2 Flow Rate FiO2 10/23/23 08:01 36.5 78 17 119/59 (79) 96 Room Air 10/23/23 08:00 2.00 Capillary Refill : Less Than 3 Seconds General Appearance: No Apparent Distress Respiratory: Normal Breath Sounds, No Accessory Muscle Use, No Respiratory Distress Cardiovascular: Regular Rate, Rhythm Gastrointestinal: Soft, Tenderness Neurologic/Psychiatric: Alert, Oriented x3, Normal Mood/Affect Skin: Normal Color, Warm/Dry Results/Procedures Lab Laboratory Tests 10/23/23 04:55 Patient resulted labs reviewed. Assessment/Plan Assessment and Plan Assess & Plan/Chief Complaint (1) Small bowel obstruction Onset Date: ~ 10/18/2023 Status: Acute Assessment & Plan: CT abdomen pelvis: Findings concerning for small bowel obstruction Surgery consulted and appreciate conservative treatment Has not had BM nor passed gas Plan: Continue NPO status IV Morphine Q2hr for pain. NG for stomach decompression Abdominal Xray demonstrates dilated loops of small bowel representing SBO vs ileus. Per surgery recommendations - No surgical intervention at this time PT/OT for mobility, help with getting Pt out of bed to chair Start metoclopramide (2) Nausea and vomiting Status: Acute Assessment & Plan: Continue IV Zofran PRN Start IV pantoprazole Qualifiers: Qualified Codes: R11.2 - Nausea with vomiting, unspecified (3) Afib Status: Chronic Assessment & Plan: Continue therapeutic dosing of Lovenox for Afib. Qualifiers: Qualified Codes: I48.91 - Unspecified atrial fibrillation (4) Headache Status: Acute Assessment & Plan: Patient has history of Migraines and has had significant headaches since admission Start patient on IV toradol Qualifiers: (5) Diabetes mellitus Status: Chronic Assessment & Plan: Discontinue home medications and start insulin on sliding scale Qualifiers: (6) HTN (hypertension) Status: Chronic Assessment & Plan: Start patient on IV Lasix Qualifiers: Qualified Codes: I10 - Essential (primary) hypertension (7) COPD (chronic obstructive pulmonary disease) Status: Chronic Assessment & Plan: Patient does not require oxygen at home. Qualifiers: Qualified Codes: J44.9 - Chronic obstructive pulmonary disease, unspecified (8) HLD (hyperlipidemia) Status: Chronic Qualifiers: Qualified Codes: E78.5 - Hyperlipidemia, unspecified VALERI ARROYO DO 10/23/23 1555: Subjective HPI/CC On Admission Date Seen by Provider: Oct 23, 2023 Time Seen by Provider: 11:30 Subjective/Events-last exam No major changes Replacing potassium Patient spends most of her time supine in bariatric bed BMI is 66 Objective Exam General Appearance: No Apparent Distress, WD/WN Assessment/Plan Assessment and Plan Assess & Plan/Chief Complaint Supportive care Monitor closely GET TONG MD,RESIDENT Oct 23, 2023 09:25 VALERI ARROYO DO Oct 23, 2023 15:55
--- NOTE | 2023-10-23 10:51 | Progress Note ---
Subjective Date Seen by a Provider: Oct 23, 2023 Time Seen by a Provider: 09:45 Subjective/Events-last exam Patient seen with Dr. Terrell. Patient reports passed flatus 4 times this morning. Does report some mild nausea but no vomiting. NGT to low wall suction. Reports that she still has some right side abdominal pain and is about the same. Objective Exam Vital Signs Date Time Temp Pulse Resp B/P (MAP) Pulse Ox O2 Delivery O2 Flow Rate FiO2 10/23/23 08:01 36.5 78 17 119/59 (79) 96 Room Air 10/23/23 08:00 OxyMask 2.00 10/23/23 07:21 Nasal Cannula 2.00 10/22/23 23:39 93 Room Air 10/22/23 23:12 37.2 84 20 114/74 (87) 96 Room Air 10/22/23 19:30 OxyMask 2.00 10/22/23 16:12 36.5 86 18 134/70 (91) 92 OxyMask 2.00 I & O 10/23/23 06:59 Intake Total 1950 ml Output Total 1950 ml Balance 0 ml Capillary Refill : Less Than 3 Seconds General Appearance: No Apparent Distress, WD/WN, Obese Neck: Full Range of Motion, Normal Inspection Respiratory: No Accessory Muscle Use, No Respiratory Distress Gastrointestinal: soft, tenderness, hernia (Large ventral abdominal incisional hernia that is tender to palpation) Neurologic/Psychiatric: Alert, Oriented x3 Skin: Normal Color, Warm/Dry Results Lab Laboratory Tests 10/22/23 11:28: Glucometer 113H 10/22/23 12:10: Sodium Level 138, Potassium Level 2.9L, Chloride Level 101, Carbon Dioxide Level 24, Anion Gap 13, Blood Urea Nitrogen 5L, Creatinine 0.67, Estimat Glomerular Filtration Rate 101, BUN/Creatinine Ratio 7, Glucose Level 134H, Calcium Level 8.4L, Corrected Calcium 9.0, Total Bilirubin 1.2H, Aspartate Amino Transf (AST/SGOT) 39H, Alanine Aminotransferase (ALT/SGPT) 35, Alkaline Phosphatase 127, Total Protein 6.2L, Albumin 3.2 10/22/23 18:20: Glucometer 108 10/22/23 23:15: Glucometer 112H 10/23/23 04:45: Glucometer 124H 10/23/23 04:55: White Blood Count 6.1, Red Blood Count 4.17, Hemoglobin 11.8, Hematocrit 38, Mean Corpuscular Volume 90, Mean Corpuscular Hemoglobin 28, Mean Corpuscular Hemoglobin Concent 32, Red Cell Distribution Width 16.7H, Platelet Count 182, Mean Platelet Volume 9.7, Sodium Level 138, Potassium Level 3.1L, Chloride Level 105, Carbon Dioxide Level 25, Anion Gap 8, Blood Urea Nitrogen 4L, Creatinine 0.66, Estimat Glomerular Filtration Rate 100, BUN/Creatinine Ratio 6, Glucose Level 124H, Calcium Level 8.0L, Corrected Calcium 9.0, Total Bilirubin 0.9, Aspartate Amino Transf (AST/SGOT) 45H, Alanine Aminotransferase (ALT/SGPT) 44, Alkaline Phosphatase 112, Total Protein 5.2L, Albumin 2.8L Assessment/Plan Assessment/Plan Assess & Plan/Chief Complaint PSBO with large ventral abd incisional hernia with loss of domain. continue conservative management with ngt decompression and bowel rest. if no bowel fxn within 24-48 will get gastrograffin SBFT. very poor surgical prognosis due to body habitus and non-ambulatory status. staff states patient requesting transfer to which would be more appropriate in my opinion for her risks for surgery extremely high for mortality. VSS WBC 6.1 Will add throat spray as needed for throat discomfort Will add reglan 5 mg IV every 6 hours SBFT tomorrow Will proceed with a trial of clamping the NGT however if she becomes nausea, then will unclamp and leave to low wall suction RUPA CARRANZA QUALITY CONTROL REPRESENTATIVE Oct 23, 2023 10:51
[2023-10-23] MEDS: METOCLOPRAMIDE INJ 10 MG/2 ML IVP SCH ×3 (11:32→22:55)
[2023-10-23] MEDS: POTASSIUM CL 10MEQ/50ML IVPB 50 ML IV SCH ×4 (12:11→15:40)
[2023-10-23 15:38] VITALS: BP 117/71
[2023-10-23] MEDS: ONDANSETRON INJECTION 4 MG/2 ML (SDV) IVP PRN (22:55)
[2023-10-23] MEDS: PHENOL THROAT SPRAY 177 ML LIQUID MC PRN (22:59)
[2023-10-23 23:34] VITALS: BP 117/71
[2023-10-24] MEDS: ENOXAPARIN 300 MG/3 ML MULTI-DOSE VIAL SQ SCH (06:03)
[2023-10-24] MEDS: inSUlin ASPART 1 UNIT/0.01 ML (PER UNIT) SC SCH ×2 (06:03→12:25)
[2023-10-24] MEDS: METOCLOPRAMIDE INJ 10 MG/2 ML IVP SCH ×2 (06:03→11:29)
[2023-10-24 07:00] LABS: HEMATOCRIT 39 % (35-52); MEAN CORPUSCULAR HEMOGLOBIN 28 pg (25-34); MEAN CORPUSCULAR HGB CONC 31 g/dL (32-36); MEAN CORPUSCULAR VOLUME 91 fL (80-99); MEAN PLATELET VOLUME 9.3 fL (9.0-12.2); PLATELET COUNT 180 10^3/uL (130-400); WHITE BLOOD COUNT 6.2 10^3/uL (4.3-11.0)
[2023-10-24 07:09] VITALS: BP 137/84
[2023-10-24 07:26] LABS: ALBUMIN 2.8 GM/DL (3.2-4.5); BILIRUBIN,TOTAL 0.7 MG/DL (0.1-1.0); CREATININE SERUM 0.65 MG/DL (0.60-1.30); POTASSIUM 3.3 MMOL/L (3.6-5.0); TOTAL PROTEIN 5.3 GM/DL (6.4-8.2)
[2023-10-24] MEDS: FLUTICASONE/VILANTEROL 100/25 MCG (14 DOSES) IH SCH (07:28)
[2023-10-24] MEDS ORDERED: diphenhydrAMINE INJ 50 MG/ML VIAL ONE (08:27)
[2023-10-24] MEDS ORDERED: diphenhydrAMINE INJ 50 MG/ML VIAL IVP PRN (08:30)
[2023-10-24] MEDS ORDERED: DIATRIZOATE MEGLUM/SODIUM 37% 120 ML (GASTROGRAFIN) NG ONE (08:30)
--- NOTE | 2023-10-24 10:17 | Progress Note - Hospitalist ---
Subjective HPI/CC On Admission Date Seen by Provider: Oct 24, 2023 Objective Exam Vital Signs Vital Signs Date Time Temp Pulse Resp B/P (MAP) Pulse Ox O2 Delivery O2 Flow Rate FiO2 10/24/23 08:00 98 Nasal Cannula 2.00 10/24/23 07:09 36.3 72 16 137/84 (101) Capillary Refill : Less Than 3 Seconds Results/Procedures Lab Laboratory Tests 10/24/23 06:50 Patient resulted labs reviewed. Assessment/Plan Assessment and Plan Assess & Plan/Chief Complaint Supportive care Monitor closely VALERI ARROYO DO Oct 24, 2023 10:17
[2023-10-24] MEDS: FUROSEMIDE INJECTION 40 MG/4 ML VIAL IVP SCH (10:41)
[2023-10-24] MEDS: PANTOPRAZOLE INJECTION 40 MG VIAL IV SCH (10:41)
--- NOTE | 2023-10-24 10:53 | Occ Therapy Progress Note ---
Therapy Progress Note Attempted x2 to evaluate patient, patient declined OT today, OT will monitor FADI YU OT Oct 24, 2023 10:53
--- NOTE | 2023-10-24 10:53 | Physical Therapy Progress Note ---
Therapy Progress Note Patient adamantly declined PT due to procedure. RN present. JODY GARIBAY PT Oct 24, 2023 10:53
[2023-10-24] MEDS: D5 1/2 NS 1,000 ML IV 1,000 ML IV SCH (11:30)
--- NOTE | 2023-10-24 11:32 | Diagnostic Imaging Report ---
INDICATION: Small bowel obstruction. The patient was given 240 mixture gastric contrast and water via the indwelling nasogastric tube and serial radiographs of the abdomen were obtained. Preliminary radiograph of the abdomen does show numerous bowel loops noted in the patient's right abdominal wall hernia. Several slightly dilated small bowel loops are noted in the hernia sac. The initial radiograph does show contrast within the stomach with prompt emptying into proximal small bowel. There is opacification of numerous small and large bowel loops in the right lower quadrant within the hernia sac. There is contrast seen in the right colon at the 1-1/2 hour film. No small bowel obstruction is identified. IMPRESSION: Large abdominal wall hernia. No small bowel obstruction is detected. Dictated by: Dictated on workstation # [id number]
--- NOTE | 2023-10-24 15:04 | Discharge Summary ---
Discharge Summary Hospital Course Was the Problem List Reviewed?: Yes Hospital Course Date of Admission: Oct 19, 2023 at 13:47 Admission Diagnosis : Family Physician/Provider: Jeff Barth DO Date of Discharge: 10/24/23 Discharge Diagnosis: [ ] Hospital Course: Uneventful hospital course after using was admitted for suspected bowel obstruction. Patient is too high risk to undergo surgery due to BMI of 70.General surgery consulted and ultimately placed on Clear liquid and Supportive care and upon further evaluation of small bowel follow-through she experienced a large evacuation of her bowel and she was deemed stable for discharge. Labs and Pending Lab Test: Laboratory Tests 10/23/23 17:09: Glucometer 126H 10/23/23 23:04: Glucometer 123H 10/24/23 06:00: Glucometer 128H 10/24/23 06:50: White Blood Count 6.2, Red Blood Count 4.26, Hemoglobin 12.0, Hematocrit 39, Mean Corpuscular Volume 91, Mean Corpuscular Hemoglobin 28, Mean Corpuscular Hemoglobin Concent 31L, Red Cell Distribution Width 17.1H, Platelet Count 180, Mean Platelet Volume 9.3, Sodium Level 139, Potassium Level 3.3L, Chloride Level 107, Carbon Dioxide Level 23, Anion Gap 9, Blood Urea Nitrogen 4L, Creatinine 0.65, Estimat Glomerular Filtration Rate 101, BUN/Creatinine Ratio 6, Glucose Level 126H, Calcium Level 8.0L, Corrected Calcium 9.0, Total Bilirubin 0.7, Aspa rtate Amino Transf (AST/SGOT) 45H, Alanine Aminotransferase (ALT/SGPT) 53, Alkaline Phosphatase 108, Total Protein 5.3L, Albumin 2.8L 10/24/23 12:19: Glucometer 112H Home Meds Active Reported Ventolin Hfa (Albuterol Sulfate) 90 Mcg Hfa.aer.ad 2 Puff INH Q6H PRN Budesonide-Formoterol 80-4.5 (Budesonide/Formoterol Fumarate) 80 Mcg-4.5 Mcg/Actuation Hfa.aer.ad 2 Puff INH BID PRN Pantoprazole Sodium 40 Mg Tablet.dr 40 Mg PO BID Lubiprostone 24 Mcg Capsule 24 Mcg PO BID Duloxetine HCl 30 Mg Capsule.dr 30 Mg PO DAILY Bupropion Xl (Bupropion HCl) 300 Mg Tab.er.24h 300 Mg PO DAILY Famotidine 40 Mg Tablet 40 Mg PO DAILY Ezetimibe 10 Mg Tablet 10 Mg PO DAILY Trulicity (Dulaglutide) 4.5 Mg/0.5 Ml Pen.injctr 4.5 Mg SQ FRI Flonase Allergy Relief (Fluticasone Propionate) 9.9 Ml [place].susp 1 [place] NSEACH BID PRN Sumatriptan Succinate 50 Mg Tablet 50 Mg PO UD PRN TAKE 1 TAB AT SYMPTOM ONSET AND MAY TAKE ANOTHER DOSE AFTER 2 HOURS IF SYMPTOMS ARE NOT RELIEVED Vitamin D2 (Ergocalciferol (Vitamin D2)) 1,250 Mcg Capsule 1,250 Mcg PO FRI Atorvastatin Calcium 40 Mg Tablet 40 Mg PO DAILY Eliquis (Apixaban) 5 Mg Tablet 5 Mg PO BID Metoprolol Succinate 25 Mg Tab.er.24h 25 Mg PO DAILY Furosemide 40 Mg Tablet 40 Mg PO BID Assessment/Pt Instructions [facility] in 1 week Discharge Planning: <30 minutes discharge planning Discharge Instructions Discharge Diet: Soft Diet Activity as Tolerated: Yes Discharge Physical Examination Vital Signs Vital Signs Date Time Temp Pulse Resp B/P (MAP) Pulse Ox O2 Delivery O2 Flow Rate FiO2 10/24/23 08:00 98 Nasal Cannula 2.00 10/24/23 07:09 36.3 72 16 137/84 (101) General Appearance: No Apparent Distress, WD/WN, Chronically ill, Obese Allergies: Coded Allergies: latex (Verified Allergy, Intermediate, RASH, ITCHING, 03/02/11) vancomycin (Verified Allergy, Intermediate, HIVES, 03/02/11) iodine (Verified Allergy, Mild, "ILL", 03/02/11) lorazepam (Verified Allergy, Unknown, 07/12/17) phenobarbital (Verified Allergy, Unknown, 03/09/06) phenytoin (Verified Allergy, Unknown, 07/12/17) Discharge Summary Date of Admission Oct 19, 2023 at 13:47 Date of Discharge Discharge Date: Oct 24, 2023 Discharge Diagnosis Supportive care Monitor closely VALERI ARROYO DO Oct 24, 2023 15:04
== END 2023-10-24 16:29 | disposition home or self-care (01) | DRG 394 ==
LOC: EDUNIT# 04:50 → ER 04:51 → INTOOBSV 12:41 → 4TH 12:41 → OBSVTOIN 10-19 13:47
PROVIDERS: ADMIT Family Medicine; ATTEND Internal Medicine
PROC: 0D9670Z Drainage of Stomach with Drainage Device, Via Natural or Artificial Opening (ICD-10-PCS; principal; 2023-10-18)
DX: K43.0 Incisional hernia with obstruction, without gangrene (principal); I48.20 Chronic atrial fibrillation, unspecified; Z68.44 Body mass index [BMI] 60.0-69.9, adult; E66.01 Morbid (severe) obesity due to excess calories; J44.9 Chronic obstructive pulmonary disease, unspecified; I10 Essential (primary) hypertension; E11.9 Type 2 diabetes mellitus without complications; K21.9 Gastro-esophageal reflux disease without esophagitis; G47.33 Obstructive sleep apnea (adult) (pediatric); I25.2 Old myocardial infarction; F41.9 Anxiety disorder, unspecified; F32.A Depression, unspecified; E78.00 Pure hypercholesterolemia, unspecified; Z91.041 Radiographic dye allergy status; Z91.040 Latex allergy status; Z87.891 Personal history of nicotine dependence; G40.909 Epilepsy, unspecified, not intractable, without status epilepticus
CPT/HCPCS: 36415; 71045; 74019; 74176; 74250; 80053; 82947; 83605; 83735; 85025; 85027; 93005; 94640; 94760; 96374; 96375; 96376; G0378